=== PATIENT | male | born 1935 | race Caucasian/White ===

== ENCOUNTER 2020-09-22 11:00 | Emergency (ER) | payer MEDICARE, OTHER, SELFPAY ==
[2020-09-22 11:01] VITALS: BP 153/106; PULSE 102; RESP 18; TEMP 36.6; O2SAT 94; BMI 27.4
[2020-09-22 11:12] VITALS: O2SAT 94
--- NOTE | 2020-09-22 11:21 | EKG12_ITS ---
Test Reason : SOB Blood Pressure : / mmHG Vent. Rate : 090 BPM Atrial Rate : 312 BPM P-R Int : 000 ms QRS Dur : 094 ms QT Int : 358 ms P-R-T Axes : 132 063 174 degrees QTc Int : 437 ms Atrial Flutter with intermittent electronic ventricular pacemaker Incomplete right bundle branch block Possible Inferior infarct , age undetermined ST & T wave abnormality, consider lateral ischemia Abnormal ECG Confirmed by DAYA ROBERT, MELLY ([id number]), electronic news gathering editor SAMPSON BURGER ([id number]) on 09/24/2020 11:02:05 AM Referred By: LUIS Confirmed By:MELLY STAPLETON MD
--- NOTE | 2020-09-22 11:23 | ED.DCSUM_ITS ---
- ER Visit Summary Date of Service: 09/22/20 Chief Complaint: Shortness of breath History of Present Illness: The patient is a 85 M who presents with shortness of breath that has been getting progressively worse over the past few months. Patient states it is gradually gotten worse. Patient states it feels like a smothering in his chest. Patient states it is worse with lying down. Patient also states it is worse with any exertion. Patient states his breathing is better when he sits up and rests. Patient does admit to some palpitations but denies any chest pain. Patient admits to some rhinorrhea. Patient admits to a mild cough. Physical Examination: Vital signs are stable. Patient is afebrile. Patient is in no acute distress. Oral mucosa is pink and moist. Neck is supple. Trachea is midline. There is no JVD. Heart was irregularly irregular. Lungs show diffuse expiratory wheezing. There is good respiratory effort. There are no retractions noted. Abdomen is soft. Bowel sounds are normal. There is no tenderness. Cranial nerves II through XII are intact. There are no focal motor or sensory deficits. Extremities are intact. There is no calf tenderness or edema. Test Results: EKG was obtained. On my interpretation, there is atrial flutter with a rate of 90. There are frequent PVCs. There is T wave inversion in leads V4 through V6. QRS interval and QT intervals normal. [place] is normal. There are no prior EKGs available for comparison. Portable 1 view chest x-ray was obtained. On my interpretation, lung herrera are clear. There is cardiomegaly. Bony thorax is normal. There is no acute process noted. Radiologist also interpreted the x-ray and agrees. CBC showed a mild thrombocytopenia of 59. White blood cell count was 3.5. Comprehensive metabolic profile showed a slightly elevated creatinine of 1.66 and a BUN of 22. There are no prior values for comparison. PT with INR and PTT was normal. Troponin was normal. BNP was 981.3. COVID-19 rapid antigen was obtained and was positive. COVID-19 PCR test was also obtained and was positive. Emergency Department Course and Treatment: Patient was given a DuoNeb aerosol here. Patient was feeling better after this. Patient still had some mild wheezing. Patient was given albuterol aerosol. Patient's wheezing has cleared. Patient was given a prescription for albuterol inhaler. Patient was instructed to follow-up with his primary care physician in 3 to 5 days. Patient understood and was agreeable with the plan. All questions were answered. Disposition: Discharge home Impression: 1. COVID-19 This note was generated with [employer] dictation software. It may contain incorrect words, spelling, and punctuation that were not noted in review of the chart prio r to signing ED Disposition - Plan for ED Patient: Disposition: Home or Assisted Living Diagnosis: COVID-19 Instructions: Coronavirus Disease 2019 (COVID-19): Overview Prescriptions: Albuterol Inhaler [Ventolin Hfa] 1 - 2 puff INHALATION Q4H PRN PRN #1 inhaler PRN Reason: Wheezing Transmission Status: Pending to [facility] [facility] Referrals: Prabhu Vee MD [Primary Care Provider] - 3-5 Days
[2020-09-22] MEDS: Ipratropium/Albuterol Sulfate 3 ML AMPUL.NEB INHALATION (11:26)
[2020-09-22 11:27] VITALS: PULSE 92; RESP 20; O2SAT 93
--- NOTE | 2020-09-22 11:35 | RAD_ITS ---
STUDY: X-RAY CHEST REASON FOR EXAM: Male, 85 years old. Dyspnea TECHNIQUE: Single AP portable view of the chest. COMPARISON: None. FINDINGS: Pacemaker is seen on the left side. Multiple calcified granulomas are seen in both lungs the largest measures 5 mm. There is no demonstrated pleural abnormality. There is mild cardiac enlargement. Normal mediastinum and kaylene. Normal visualized pulmonary arteries. Normal visualized aortic arch and descending thoracic aorta. Normal visualized thoracic spine. There is degenerative osteoarthritis of the bilateral shoulders. There is no demonstrated abnormality of the visualized soft tissue structures of the upper abdomen. RAD/Chest 1 View (Portable) IMPRESSION: Mild cardiomegaly. No demonstrated acute cardiopulmonary process. Electronically Signed: Jax Prabhakar MD at 12:15 EST Tel , Service support ,
[2020-09-22 11:38] LABS: Absolute Lymphocyte Count 0.46 X10^3/uL (0.83-4.51); Absolute Neutrophil Count 2.2 X10^3/uL (2.0-7.7); Basophil# 0.04 X10^3/uL; Basophil% 1.1 % (0-1); Eosinophil# 0.04 X10^3/uL; Eosinophils% 1.1 % (0-5); Hematocrit 46.9 % (40-54); Hemoglobin 15.2 g/dL (13.0-16.5); Lymphocyte # 0.46 X10^3/ul (4.0); Lymphocyte % 13.2 % (19-41); Mean Corp Hgb Conc 32.4 g/dL (32-36); Mean Corpuscular Volume 104.9 fL (80-94); Mean Platelet Vol. 11.7 fl (6.2-12.0); Monocyte# 0.72 X10^3/uL; Monocyte% 20.6 % (0-10); NRBC Flagged by Analyzer 0 % (0-5); Neutrophil # 2.22 X10^3/uL (2.7-7.7); Neutrophil % 63.7 % (47-70); POSITIVE COUNT YES; POSITIVE DIFFERENTIAL YES; Platelet Count 59 K/mm3 (150-450); RBC Distribution Width CV 14.6 % (11.6-14.6); RBC Distribution Width SD 57.1 fl (35.1-43.9); Red Blood Count 4.47 M/mm3 (4.6-6.2); White Blood Count 3.5 K/mm3 (4.4-11.0)
[2020-09-22 11:55] LABS: International Normalized Ratio 1.3; Prothrombin Time (Protime)PT. 15.5 SECONDS (11.7-14.9)
[2020-09-22 11:56] LABS: ALB/GLOB Ratio 0.9 RATIO (0.9-2.4); AST(SGOT) 23 U/L (15-37); Alanine Aminotransfer ALT/SGPT 27 U/L (16-61); Albumin, Serum 3.3 g/dL (3.2-5.0); Alkaline Phosphatase 88 U/L (45-117); Anion Gap 6 (5-15); BUN 22 mg/dL (7-18); BUN/Creat Ratio 13.3 RATIO (10-20); Calcium,Total 8.9 mg/dL (8.5-10.1); Chloride 103 mmol/L (98-107); Creatinine, Serum 1.66 mg/dL (0.70-1.30); EST Glomerular Filtration Rate 42 mL/min (>60); Est Glom Filt Rate - Afr Amer 51 mL/min (>60); Estimated Creatinine Clearance 29.36 ml/min; Globulin 3.6 g/dL (2.2-4.2); Glucose 206 mg/dL (74-106); Protein, Total 6.9 g/dL (6.4-8.2); Sodium Level 142 mmol/L (136-145)
[2020-09-22 11:57] LABS: Partial Thromboplast Time 31.3 Seconds (24.1-36.2)
[2020-09-22 11:59] VITALS: PULSE 77; RESP 15; RESP 20; O2SAT 94
[2020-09-22] MEDS: Albuterol 2.5 MG/3 ML VIAL.NEB. INHALATION (11:59)
[2020-09-22 12:04] LABS: BNP,B-Type NATRIURETIC PEPTIDE 981.3 pg/mL (0-100)
[2020-09-22 12:07] LABS: Differential Indicated SCAN CRITERIA MET
[2020-09-22 12:08] LABS: Differential Comment SCANNED
[2020-09-22 12:10] LABS: Platelet Estimate MOD DEC (ADEQ)
[2020-09-22 13:22] VITALS: BP 117/84; PULSE 80; RESP 20; O2SAT 97
[2020-09-22 15:20] VITALS: BP 136/86; PULSE 79; RESP 16; O2SAT 95
[2020-09-23 12:39] LABS: Pathologist Review Reviewed
== END 2020-09-22 15:51 | disposition home or self-care (01) ==
PROVIDERS: Emergency Provider Emergency Medicine; PCP Family Medicine
DX: U07.1 COVID-19 (principal); I48.92 Unspecified atrial flutter; I49.3 Ventricular premature depolarization; I25.10 Atherosclerotic heart disease of native coronary artery without angina pectoris; Z95.1 Presence of aortocoronary bypass graft; Z95.810 Presence of automatic (implantable) cardiac defibrillator
CPT/HCPCS: 71045; 80053; 83880; 84484; 85025; 85610; 85730; 87426; 87635; 93005; 94640; 99251; 99284; A4216; G0463; U0002

== ENCOUNTER 2020-09-23 07:39 | Inpatient (IN) | payer MEDICARE, OTHER, SELFPAY ==
[2020-09-22 11:01] VITALS: BMI 27.4
[2020-09-23] VITALS (11 sets, daily range): BP systolic 122–152; BP diastolic 79–110; PULSE 74–124; RESP 16–23; TEMP 36.6–37.1; O2SAT 90–96; BMI 29.0; BMI 28.0; BMI 28.1
--- NOTE | 2020-09-23 07:56 | EKG12_ITS ---
Test Reason : SOB Blood Pressure : / mmHG Vent. Rate : 099 BPM Atrial Rate : 312 BPM P-R Int : 000 ms QRS Dur : 094 ms QT Int : 296 ms P-R-T Axes : 000 033 212 degrees QTc Int : 379 ms Atrial flutter with variable A-V block with frequent ventricular-paced complexes Incomplete right bundle branch block Inferior infarct , age undetermined ST & T wave abnormality, consider anterolateral ischemia Abnormal ECG Confirmed by MANN ROBERT, MARY JANE ([id number]), publications editor SAMPSON BURGER ([id number]) on 09/29/2020 10:26:59 A M Referred By: CRISTINA Confirmed By:NITO DARNELL MD
--- NOTE | 2020-09-23 07:59 | ED.DCSUM_ITS ---
History of Present Illness Chief Complaint: Shortness of Breath Informant: Patient, EMS Onset: Month(s) - 3 Activity at onset: - - gradual onset Timing: Continuous, Waxes and wanes Quality: Dyspnea on exertion, Orthopnea, Wheezing Current Severity: Mild Maximum Severity: Moderate Worsened by: Exertion, Lying flat Relieved by: Albuterol - sometimes helps the wheezing, Oxygen - given by EMS this AM, - - sitting up Associated Symptoms: Cough - BASEBALL SCOUT. Negative for: Chills, Fever, Rhinorrhea, Sore throat, Sweats Chest Pain: None Narrative: Patient states he has been having dyspnea with exertion and orthopnea for about 3 months, saw his food order expediter in [place], and is in the process of having his care transferred to local cardiology here. Yesterday he was seen here and had a work-up for worsening dyspnea he had positive rapid and PCR test for COVID-19. He has had a nonproductive cough, but he cannot really say how long he has been sick because he has been dealing with some of the symptoms for 3 months or more. This morning he woke up feeling like I was drowning more short of breath. He was 83% on room air upon EMS initial evaluation. The put him on oxygen and he was feeling better. Now he is off of oxygen and at 94 percent on room air and feeling better now that he has been sitting up for a while. He has swelling in his legs and states that has been chronic and fairly stable for a long time since his CABG. - Past Medical History (1) CAD (coronary artery disease) Status: Chronic Past Medical History - Allergies and Home Meds Allergies/Adverse Reactions: Allergies No Known Allergies Allergy (Verified 09/22/20 11:01) Primary Care Physician: Prabhu Vee MD [Primary Care Provider] - Surgical History: coronary bypass surgery, - - mitral valve replacement Smoking Status: Former smoker Review of Systems General: Reports: Malaise. Denies: Chills, Fever, Sweats Eyes: Denies: Visual changes - bilaterally, Diplopia ENT: Denies: Bilateral ear pain, Rhinorrhea, Sore throat Cardiovascular: Denies: Chest pain, Palpitations Respiratory: Reports: Dyspnea, Cough, Dyspnea on exertion, Orthopnea. Denies: Sputum Gastrointestinal: Denies: Abdominal pain, Nausea, Vomiting, Diarrhea, Melena, Hematochezia Genitourinary: Denies: Dysuria, Hematuria, Frequency Musculoskeletal: Reports: Swelling. Denies: Myalgias, Back pain, Extremity Pain Skin: Denies: Rash, Wounds Neurological: Denies: Headache, Weakness, Numbness Physical Exam Vital Signs/Narrative: Vital Signs Temp Pulse Resp BP Pulse Ox 09/23/20 07:47 98.7 F 124 H 22 H 152/110 H 93 Inital Vital Signs reviewed: Yes General: Well nourished, Well developed, No Acute Distress Head: Normocephalic, Atraumatic Eyes: Perrl, EOMI ENT: Moist mucous membranes, No rhinorrhea Neck: Supple, Nontender, No lymphadenopathy, No JVD Cardiovascular: Regular rate, Regular rhythm, No murmurs, Tachycardia Respiratory: No distress, Chest nontender, Wheezing - slight expiratory. Negative for: Rales, Rhonchi Abdomen: Soft, Nontender, Nondistended, Normal bowel sounds Back: Nontender, Normal Inspection Extremities: Nontender, Edema - 2+ BLE, worse on right which is chronic and stable per pt Skin: Normal color, No rash, No Trauma Neurological: Alert, Oriented x3, Cranial nerves II-XII grossly intact, Normal Strength, Normal Sensation Psychological: Normal affect, Normal Mood Diagnostic/Tx/Re-eval - Rhythm Strip Rhythm Strip: irreg narrow complex tachycardia Rate: 120 Ectopy: PVC(s) - EKG Initial EKG Interpretation: No Acute Injury Pattern, Atrial Flutter Prior: No Prior Treatment - Dyspnea: Oxygen - Medical Decision Making Given the patient was doing well on room air, we watched him for little while, but his oxygen saturations trended down and remained stable at about 88% on room air. He was placed on a nasal cannula which kept him in the 90s. He was in no respiratory distress. His heart rate maintained around 100-110, so I elected not to slow him down based on this. His EKG appears to show atrial flutter with a lot of ventricular ectopy and occasional pacing, the patient has never been diagnosed with a heart rhythm disturbance that he knows of. He is on no anticoagulant but he is on some cardiac medicine such as carvedilol. He does not know the specifics of his prior diagnoses, but given all of this I think ad mitting him for further treatment and evaluation is reasonable. His D-dimer is 0.74 which when corrected for his age is within normal limits, so he does not need to have further evaluation for acute pulmonary embolus at this time. His chest x-ray is unchanged compared to yesterday, on my interpretation 1 view shows chronic changes he has a pacemaker, with no acute infiltrates or effusion. His wheezing may be cardiac in nature. His BNP was elevated yesterday, today's is still pending for comparison, will give him some additional Lasix since all of this is consistent with congestive heart failure. He does not have an old echo available and will probably need 1. ED Disposition - Plan for ED Patient: Disposition: Acute Care Hospital [facility] Diagnosis: COVID-19, Hypoxemia, Atrial flutter, Acute congestive heart failure Referrals: Prabhu Vee MD [Primary Care Provider] -
--- NOTE | 2020-09-23 08:15 | RAD_ITS ---
STUDY: X-RAY CHEST REASON FOR EXAM: Male, 85 years old. sob TECHNIQUE: AP upright portable view. COMPARISON: 09/22/2020. FINDINGS: Dual-chamber pacing lead tips remain in the right atrium and right ventricle. Multiple calcified granulomas are unchanged. No suspicious infiltrates. There is no demonstrated pleural abnormality. Cardiomegaly is unchanged. Intact sternal wires. Normal mediastinum and kaylene. Normal visualized pulmonary arteries. Normal visualized aortic arch and descending thoracic aorta. Normal visualized thoracic spine. Normal visualized ribs, clavicles, and shoulders. There is no demonstrated abnormality of the visualized soft tissue structures of the upper abdomen. RAD/Chest 1 View (Portable) IMPRESSION: 1. No acute cardiopulmonary pathology. 2. No significant interval change when compared to 09/22/2020. Electronically Signed: Robbie Lawrence MD at 8:32 EST , Service support ,
[2020-09-23 08:27] LABS: Absolute Lymphocyte Count 0.57 X10^3/uL (0.83-4.51); Absolute Neutrophil Count 2.7 X10^3/uL (2.0-7.7); Basophil# 0.03 X10^3/uL; Basophil% 0.7 % (0-1); Eosinophil# 0.05 X10^3/uL; Eosinophils% 1.2 % (0-5); Hematocrit 46.8 % (40-54); Hemoglobin 15.6 g/dL (13.0-16.5); Lymphocyte # 0.57 X10^3/ul (4.0); Lymphocyte % 13.7 % (19-41); Mean Corp Hgb Conc 33.3 g/dL (32-36); Mean Corpuscular Hgb 34.6 pg (27.0-32.0); Mean Corpuscular Volume 103.8 fL (80-94); Mean Platelet Vol. 11.9 fl (6.2-12.0); Monocyte# 0.82 X10^3/uL; Monocyte% 19.7 % (0-10); NRBC Flagged by Analyzer 0 % (0-5); Neutrophil # 2.67 X10^3/uL (2.7-7.7); Neutrophil % 64.2 % (47-70); POSITIVE COUNT YES; POSITIVE DIFFERENTIAL YES; Platelet Count 60 K/mm3 (150-450); RBC Distribution Width CV 14.6 % (11.6-14.6); RBC Distribution Width SD 56.5 fl (35.1-43.9); Red Blood Count 4.51 M/mm3 (4.6-6.2); White Blood Count 4.2 K/mm3 (4.4-11.0)
[2020-09-23 08:36] LABS: Differential Indicated SCAN CRITERIA MET
[2020-09-23 08:40] LABS: D-Dimer Quantitative (DVT/PE) 0.74 FEU/ug/m (0.27-0.49)
[2020-09-23 08:42] LABS: Anion Gap 7 (5-15); BUN 22 mg/dL (7-18); BUN/Creat Ratio 15.1 RATIO (10-20); Calcium,Total 9.1 mg/dL (8.5-10.1); Chloride 101 mmol/L (98-107); Creatinine, Serum 1.46 mg/dL (0.70-1.30); EST Glomerular Filtration Rate 49 mL/min (>60); Est Glom Filt Rate - Afr Amer 59 mL/min (>60); Estimated Creatinine Clearance 33.38 ml/min; Glucose 115 mg/dL (74-106); Sodium Level 139 mmol/L (136-145)
[2020-09-23 08:47] LABS: Lactic Acid 1.3 mmol/L (0.4-1.9)
[2020-09-23 08:57] LABS: Differential Comment SCANNED
--- NOTE | 2020-09-23 09:15 | NURSING ---
DR NGUYEN FOR DR EVANS
[2020-09-23] MEDS: Furosemide 40 MG/4 ML Vial IV ×2 (09:16→17:06)
--- NOTE | 2020-09-23 09:27 | NURSING ---
MS2 COVID KORAM COVID 19, ACUTE CHF, HYPOXEMIA
--- NOTE | 2020-09-23 09:28 | NURSING ---
CV[facility] 202
--- NOTE | 2020-09-23 09:57 | NURSING ---
RODOLFO ALONSO, CELL PHONE [phone]
[2020-09-23 11:57] LABS: Alkaline Phosphatase 92 U/L (45-117); CPK Total, Creatine Kinase 38 U/L (39-308)
[2020-09-23] MEDS: Carvedilol 12.5 MG Tablet PO ×2 (12:31→20:18)
[2020-09-23 12:54] LABS: D-Dimer Quantitative (DVT/PE) 0.68 FEU/ug/m (0.27-0.49)
[2020-09-23 13:08] LABS: Procalcitonin 0.09 ng/mL (0.00-0.09)
[2020-09-23] MEDS: Enoxaparin 40 MG/0.4 ML Syringe SC ×2 (13:37→17:06)
[2020-09-23] MEDS: 0.9% Saline Lock 10 ML Syringe IV ×2 (13:37→17:06)
[2020-09-23] MEDS: Cyanocobalamin 500 MCG Tablet 2000 MCG PO (13:38)
[2020-09-23] MEDS: Potassium Chloride Oral Tablet 10 MEQ PO (13:38)
[2020-09-23] MEDS: Lisinopril 20 MG Tablet PO (13:38)
[2020-09-23] MEDS: Aspirin 81 MG TAB.CHEW PO (13:38)
[2020-09-23] MEDS: dexAMETHasone 10 MG/ML Vial 6 MG IV (13:39)
[2020-09-23] MEDS: Multivitamins,Ther W-Minerals Tablet 1 TABLET PO (13:39)
[2020-09-23] MEDS: Finasteride 5 MG Tablet PO (13:39)
[2020-09-23 14:27] LABS: Alanine Aminotransfer ALT/SGPT 30 U/L (16-61)
[2020-09-23] MEDS: Sodium Chloride 0.65% 1 SPRAY SPRAY.BTL 2 SPRAY NASAL (15:31)
--- NOTE | 2020-09-23 15:34 | HP.PCM_ITS ---
History of Present Illness Date of Admission: 09/23/20 Chief Complaint: shortness of breath The patient is a 85 year old M with a past medical history as outlined which includes heart failure was admitted via the ED on 09/23/2020 with a complaint of shortness of breath. Patient states shortness of breath had been going on for about 3 months and he had been following up with his vending machine assembler in [place]. He had however recently moved to the [facility] and so was trying to transfer his care to a local vending machine assembler. He was seen in the emergency room 1 day prior to admission with a complaint of shortness of breath which have been worsening. Covid PCR and antigen test done with both positive. He also had a nonproductive cough. He was discharged home as he was stable and not hypoxic. He however he states when he went home, shortness of breath worsened he felt like he was drowning because of shortness of breath. He therefore came back to the ED. He had associated orthopnea and PND. In the ED, he was noted to be saturating at 83% on room air and required oxygen to help him feel better. Vitals in the ED showed temperature of 98.6 Fahrenheit with pulse rate of 105, respiratory rate of 16 and blood pressure of 146/99. He was saturating at 95% on room air at time of review. His sodium was 139 and creatinine was 1.46. Initial troponin was negative. BNP was 909. CBC showed hemoglobin of 15.6 with WBC of 4.2 and platelets of 60. X-ray showed no acute cardiopulmonary pathology. EKG also showed no acute ST changes. He has been admitted to be managed for acute on chronic exacerbation of heart failure of unknown EF as well as COVID-19 infection. [] Past Medical History Past Medical History (Chronic Problems): Chronic Problems CAD (coronary artery disease) (Chronic) Allergies diphenhydramine [From Benadryl] Allergy (Verified 09/23/20 09:25) PT UNSURE OF REACTION ofloxacin [From Floxin] Allergy (Verified 09/23/20 09:25) Other Home Medications: Ambulatory Orders Medication Instructions Recorded Albuterol Inhaler [Ventolin Hfa] 1 - 2 puff INHALATION Q4H PRN PRN 09/22/20 #1 inhaler Aspirin [Aspirin, Baby] 81 mg PO DAILY@0800 09/22/20 Carvedilol [Coreg (Beta Latoya)] 12.5 mg PO BID 09/22/20 Enalapril Maleate 20 mg PO DAILY 09/22/20 Finasteride 5 mg PO DAILY 09/22/20 Furosemide [Lasix] 40 mg PO DAILY 09/22/20 Potassium Chloride 10 meq PO DAILY 09/22/20 Cyanocobalamin (Vitamin B-12) 2,000 mcg PO DAILY 09/23/20 [Vitamin B-12] Multivitamin with Minerals 1 tab PO DAILY 09/23/20 [Multiple Vitamin] [place]-3 Fatty Acids/Fish Oil 1 ea PO DAILY 09/23/20 [[place] 3 1,000 mg Softgel] Vitamin D3 1,000 unit PO DAILY 09/23/20 Surgical History: coronary bypass surgery, - - mitral valve replacement Smoking Status: Former smoker Tobacco Use: Cigarettes Review of Systems Constitutional: Denies: Chills, Fever, Malaise, Weakness, Weight Change Eyes: Denies: Blurred vision HEENT: Denies: Head Aches, Sinus Congestion, Sinus Drainage Cardiovascular: Reports: Orthopnea, Paroxysmal Noc. Dyspnea. Denies: Chest Pain, Chest Pressure, Chest Tightness, Heaviness, Light Headedness, Palpitations, Syncope Respiratory: Reports: Cough, Shortness of Breath, Shortness of breath at rest. Denies: Shortness of breath upon exertion, Sputum production, Wheezing Gastrointestinal: Denies: Abdominal Pain, Nausea, Vomiting Genitourinary: Denies: Dysuria Musculoskeletal: Denies: Joint Pain, Joint Tenderness Skin: Denies: Rash, Wounds Neurological: Denies: Numbness, Tingling, Focal weakness Psychiatric: Denies: Anxiety, Depression, Homicidal Ideations, Suicidal Ideations Hematologic/ Lymphatic: Denies: Easy Bruising, Easy Bleeding VTE Information - Inpt Only VTE Present on Admission: No VTE Pharm Prophylaxis ordered?: No Reason prophylaxis not ordered:: Medical Contraindication - thrombocytopenia Patient Problems: Active and Suspected Problems COVID-19 (Acute) Hypoxemia (Acute) Atrial flutter (Acute) Acute congestive heart failure (Acute) - Physical Exam Vitals/I&O's: Vital Signs Temp Pulse Resp BP Pulse Ox 98.5 F 90 17 145/79 H 95 09/23/20 15:32 09/23/20 15:32 09/23/20 15:32 09/23/20 15:32 09/23/20 15:32 Oxygen Flow Rate (L/min) 1 Oxygen Delivery Method Nasal Cannula Weight: 173 lb 15.115 oz Body Mass Index (BMI) 28.0 Intake and Output for Last 24 Hours 09/21/20 09/22/20 09/23/20 23:59 23:59 23:59 Intake Total 50 / 50 Output Total 300 / 300 Balance -250 / -250 General: Alert, Oriented x3, Cooperative, No apparent distress HEENT: Atraumatic, PERRLA, EOMI, Normocephalic Neck: Supple, No JVD, Negative Carotid Bruits Lungs: Clear to auscultation, Normal air movement, - - on room air Cardiovascular: Regular rate, No murmurs Abdomen: Bowel Sounds Present, Soft, Non Tender Extremities: No edema, Capillary Refill Less than 3 Seconds Skin: No rashes, No breakdown Musculoskeletal: No Tenderness to Palpation of Joints or Extremities Lymphatic: No Cervical, Supraclavicular, or Inguinal Adenopathy Neurological: Cranial nerves II-XII grossly intact, Neuro grossly intact, Motor Exam 5/5 strength throughout Psych/Mental Status: Normal Affect, Appropriate, Alert and oriented to time, place, person, mood and affect Laboratory Results 09/23/20 08:10: D-Dimer Quant (PE/DVT) 0.74 H* 09/23/20 08:10: Sodium 139, Potassium 4.0, Chloride 101, Carbon Dioxide 31.0, Anion Gap 7, BUN 22 H, Creatinine 1.46 H, Estim Creat Clear Calc 33.38, Est GFR (MDRD) Af Amer 59 L, Est GFR (MDRD) Non-Af 49 L, BUN/Creatinine Ratio 15.1, Glucose 115 H, Calcium 9.1, Troponin I 0.024 09/23/20 08:10: B-Natriuretic Peptide 909.0 H 09/23/20 08:10: WBC 4.2 L, RBC 4.51 L, Hgb 15.6, Hct 46.8, MCV 103.8 H, MCH 34.6 H, MCHC 33.3, RDW Std Deviation 56.5 H, RDW Coeff of Daryl 14.6, Plt Count 60 L, MPV 11.9, Immature Gran % (Auto) 0.500, Neut % (Auto) 64.2, Lymph % (Auto) 13.7 L, [place] % (Auto) 19.7 H, Eos % (Auto) 1.2, Baso % (Auto) 0.7, Absolute Neuts (auto) 2.7, Absolute Lymphs (auto) 0.57 L, Nucleated RBC % 0, Differential Comment SCANNED 09/23/20 08:10: Lactic Acid 1.3 09/23/20 08:10: Alkaline Phosphatase 92, Total Creatine Kinase 38 L 09/23/20 08:10: ALT 30 09/23/20 12:25: D-Dimer Quant (PE/DVT) 0.68 H* 09/23/20 12:25: Procalcitonin 0.09 09/23/20 12:25: Troponin I 0.027 Diagnostic Data Chest X-Ray 09/23/20 08:15 IMPRESSION: 1. No acute cardiopulmonary pathology. 2. No significant interval change when compared to 09/22/2020. Electronically Signed: Robbie Lawrence MD at 8:32 EST , Service support , Current Medications Aspirin (Aspirin 81 Mg Tab.Chew) 81 mg PO DAILY@0800 [facility] Last Admin: 09/23/20 13:38 Dose: 81 mg Documented by: Carvedilol (Carvedilol 12.5 Mg Tablet) 12.5 mg PO BID [facility] Last Admin: 09/23/20 12:31 Dose: 12.5 mg Documented by: Cholecalciferol (Cholecalciferol (Vit D3) 1,000 Unit (25mcg)) 1,000 unit PO DAILY [facility] Last Admin: 09/23/20 13:39 Dose: 1,000 unit Documented by: Cyanocobalamin (Cyanocobalamin 500 Mcg Tablet) 2,000 mcg PO DAILY [facility] Last Admin: 09/23/20 13:38 Dose: 2,000 mcg Documented by: Dexamethasone Sodium Phosphate (Dexamethasone 10 Mg/Ml Vial) 6 mg IV DAILY [facility] Last Admin: 09/23/20 13:39 Dose: 6 mg Documented by: Enoxaparin Sodium (Enoxaparin 40 Mg/0.4 Ml Syringe) 40 mg SC DAILY [facility] Last Admin: 09/23/20 13:37 Dose: 40 mg Documented by: Finasteride (Finasteride 5 Mg Tablet) 5 mg PO DAILY [facility] Last Admin: 09/23/20 13:39 Dose: 5 mg Documented by: Furosemide (Furosemide 40 Mg/4 Ml Vial) 40 mg IV BID@1000,1700 [facility] Sodium Chloride () 250 mls @ 15 mls/hr IV .[id number] PRN PRN Reason: Saline Flush Sodium Chloride () 250 mls @ 15 mls/hr IV .[id number] PRN PRN Reason: Additional IVPB Infusion Remdesivir 100 mg/ Sodium (Chloride) 250 mls @ 125 mls/hr IV DAILY [facility] Stop: 09/27/20 11:59 Lisinopril (Lisinopril 20 Mg Tablet) 20 mg PO DAILY [facility] Last Admin: 09/23/20 13:38 Dose: 20 mg Documented by: Multivitamins/Minerals (Multivitamins,Ther W-Minerals Tablet) 1 tablet PO DAILY@0800 [facility] Last Admin: 09/23/20 13:39 Dose: 1 tablet Documented by: Nitroglycerin (Nitroglycerin (Inpatient Use) 0.4 Mg Tab.Subl) 0.4 mg SL Q5M PRN PRN Reason: CARDIAC/CHEST PAIN Ondansetron HCl (Ondansetron 4 Mg/2 Ml Vial) 4 mg IV Q8H PRN PRN PRN Reason: NAUSEA/VOMITING Potassium Chloride (Potassium Chloride Oral Tablet 10 Meq) 10 meq PO DAILY [facility] Last Admin: 09/23/20 13:38 Dose: 10 meq Documented by: Sodium Chloride (0.9% Saline Lock 10 Ml Syringe) 10 - 40 ml IV UD PRN PRN Reason: SALINE FLUSH Last Admin: 09/23/20 13:37 Dose: 10 ml Documented by: Sodium Chloride (Sodium Chloride 0.65% 1 [place].Btl) 2 spray NASAL TID PRN PRN PRN Reason: NASAL DRYNESS Last Admin: 09/23/20 15:31 Dose: 2 spray Documented by: Assessment/Plan All Active Problems COVID-19 (Acute) Hypoxemia (Acute) Atrial flutter (Acute) Acute congestive heart failure (Acute) 85-year-old admitted with a complaint of shortness of breath. #Acute on chronic heart failure * EF is unknown as we don't have any echo on file. He does have an ICD in place, so I suspect it is a systolic heart failure * admit to COVID unit * start on IV lasix 40mg bid. * monitor intake and output chart * fluid restriction to 1500cc daily * #COVID 19 infection * he was hypoxic on admission, but that has resolved. * start remdesivir and decadron * ID consulted * breathing treatment with bronchodilators * #Atrial flutter * patient was in atrial flutter on admission. He doesnt have any such known history * on carvedilol; will resume. He was rate controlled. * records from previous vending machine assembler requested * consult cardiology * unable to anticoagulate as platelets are 60; no baseline platelets on record * # Thrombocytopenia: unclear whether it is acute or chronic. Will monitor for now. If it drops further. #History of CAD s/p CABG; on aspirin. not On statin, likely due to advanced age. 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 hold lovenox o/a of thrombocytopenia CODE STATUS: Full code * Patient counseled extensively about different types of CODE STATUS including full code, DNR CCA and DNR CCA. Patient elects to be full code. * Total psda-xw-oexj time 17 minutes. Inpatient E&M: 23297 Init Hosp L3 Procedures: 70936 Advncd Care Plan 30 Min
--- NOTE | 2020-09-23 16:38 | CON.PCM_ITS ---
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 The patient states he follows with a size tester in the [facility]. He has been looking to transition his care to the [facility] as he now lives in this area. He notes that he has been short of breath and dyspneic for some time. He states he has been told in the past that it was not related to ongoing worsening cardiovascular disease. However, based upon his ongoing concerns, he presented to the hospital for further evaluation. He was evaluated yesterday and found to have COVID-19. He was deemed stable at the time and was released home for continued outpatient follow-up. He presented back today because of concerns of his shortness of breath and dyspnea and complaining of orthopnea. He denies any ongoing chest discomfort. He denies any ongoing palpitations or rapid rates. There is been no near syncope or syncope or ICD discharge. He states he has chronic edema of the lower extremities especially the right greater than the left. In the emergency department he was found to have an elevated heart rate. It appears that his cardiac rhythm is compatible with an underlying atrial flutter with intermittent ventricular paced beats. He states he may have been told in the past by his size tester that he had an irregular heartbeat. He does not recall being on long-term anticoagulant therapy. He was placed in the ICU for further evaluation and care. His cardiac rhythm appears to be remaining atrial flutter with intermittent ventricular paced beats. His ECG demonstrated the appearance of atrial flutter with an occasional electronic ventricular paced beat with an incomplete right bundle branch block pattern and inferior GA pattern of indeterminate age as well as ST and T wave changes potentially compatible with myocardial ischemia in the anterolateral di stribution. His chest x-ray demonstrated post open heart surgery changes and a dual-chamber ICD. His cardiac enzymes have been negative. His BNP level was elevated. He has been placed on medical therapy including his rate control therapy as well as IV diuretic therapy. He is also receiving COVID-19 therapy with corticosteroids and remdesivir. On O2 nasal cannula. At the moment he is not complaining of any acute symptoms. [] Past Medical History Allergies/Adverse Reactions: Allergies diphenhydramine [From Benadryl] Allergy (Verified 09/23/20 09:25) PT UNSURE OF REACTION ofloxacin [From Floxin] Allergy (Verified 09/23/20 09:25) Other Home Medications: Ambulatory Orders Medication Instructions Recorded Albuterol Inhaler [Ventolin Hfa] 1 - 2 puff INHALATION Q4H PRN PRN 09/22/20 #1 inhaler Aspirin [Aspirin, Baby] 81 mg PO DAILY@0800 09/22/20 Carvedilol [Coreg (Beta Latoya)] 12.5 mg PO BID 09/22/20 Enalapril Maleate 20 mg PO DAILY 09/22/20 Finasteride 5 mg PO DAILY 09/22/20 Furosemide [Lasix] 40 mg PO DAILY 09/22/20 Potassium Chloride 10 meq PO DAILY 09/22/20 Cyanocobalamin (Vitamin B-12) 2,000 mcg PO DAILY 09/23/20 [Vitamin B-12] Multivitamin with Minerals 1 tab PO DAILY 09/23/20 [Multiple Vitamin] [place]-3 Fatty Acids/Fish Oil 1 ea PO DAILY 09/23/20 [[place] 3 1,000 mg Softgel] Vitamin D3 1,000 unit PO DAILY 09/23/20 Past Medical History (Chronic Problems): Chronic Problems CAD (coronary artery disease) (Chronic) S/P CABG (coronary artery bypass graft) (Chronic) S/P MVR (mitral valve replacement) (Chronic) ICD (implantable cardioverter-defibrillator) in place (Chronic) Surgical History: coronary bypass surgery, - - mitral valve replacement Lives: Alone Smoking Status: Former smoker Tobacco Use: Cigarettes Alcohol: None Drugs: None Review of Systems - Review of Systems General: Denies: Fever, Night Sweats, Fatigue Cardiovascular: Reports: Shortness of Breath, Peripheral Edema. Denies: Chest Discomfort, Orthopnea, PND, Palpitations, Lightheadedness, Dizziness, Near Syncope, Syncope Respiratory: Reports: Cough, Shortness of Breath. Denies: Sputum Production, Hemoptysis Gastrointestinal: Denies: Hematemesis, Hematochezia, Melena Genitourinary: Denies: Dysuria, Hematuria Skin: Denies: Rash Subjectve: This is a pleasant 85-year-old white male who appears resting comfortably at the moment in no acute distress. Objective: Vital Signs Temp Pulse Resp BP Pulse Ox 98.5 F 90 17 145/79 H 95 09/23/20 15:32 09/23/20 15:32 09/23/20 15:32 09/23/20 15:32 09/23/20 15:32 Oxygen Flow Rate (L/min) 1 Oxygen Delivery Method Nasal Cannula Weight: 173 lb 15.115 oz Body Mass Index (BMI) 28.0 Intake and Output for Last 24 Hours 09/21/20 09/22/20 09/23/20 23:59 23:59 23:59 Intake Total 50 / 50 Output Total 300 / 300 Balance -250 / -250 General: Awake, Alert, Oriented x 3, Cooperative, No Acute Distress HEENT: Atraumatic, Normocephalic, PERRL, EOMI, Sclera Non Icteric Neck: Supple, Good ROM, No JVD Lungs: - - No obvious rales or rhonchi Cardiovascular: Irregular Rhythm, Normal S1, Normal S2 Abdomen: Bowel Sounds Present, Soft Extremities: Moderate RLE Edema, Mild LLE Edema Neurological: No Focal Motor or Sensory Deficit Psych/Mental Status: Appropriate 09/23/20 08:10: D-Dimer Quant (PE/DVT) 0.74 H* 09/23/20 08:10: Sodium 139, Potassium 4.0, Chloride 101, Carbon Dioxide 31.0, Anion Gap 7, BUN 22 H, Creatinine 1.46 H, Est GFR (MDRD) Af Amer 59 L, Est GFR (MDRD) Non-Af 49 L, BUN/Creatinine Ratio 15.1, Glucose 115 H, Calcium 9.1, Troponin I 0.024 09/23/20 08:10: B-Natriuretic Peptide 909.0 H 09/23/20 08:10: WBC 4.2 L, RBC 4.51 L, Hgb 15.6, Hct 46.8, MCV 103.8 H, MCH 34.6 H, MCHC 33.3, Plt Count 60 L, MPV 11.9, Immature Gran % (Auto) 0.500, Neut % (Auto) 64.2, Lymph % (Auto) 13.7 L, [place] % (Auto) 19.7 H, Eos % (Auto) 1.2, Baso % (Auto) 0.7, Absolute Neuts (auto) 2.7, Nucleated RBC % 0 09/23/20 08:10: Lactic Acid 1.3 09/23/20 12:25: D-Dimer Quant (PE/DVT) 0.68 H* 09/23/20 12:25: Troponin I 0.027 09/23/20 15:25: Troponin I 0.030 Rhythm: Atrial flutter with intermittent electronic ventricular paced beats EKG: As noted above CXR: As noted above Assessment/Plan 1. CAD status post CABG and redo CABG The details of the patient's cardiac anatomy and surgical procedures are unknown at this time. A request will be made to obtain copies of his previous medical records for continuity of care purposes. At the moment he does not appear to have any acute symptoms with his underlying CAD process. His troponin I levels have been negative. He will need to continue risk factor modification medical therapy as deemed appropriate. 2. Status post MVR The patient states that his second open heart surgery also included a mitral valve replacement. Again the details are unknown at this time. An attempt was made to retrieve his past medical records for continuity of care purposes. At the moment he appears to be without acute ongoing symptoms with respect to underlying valvular heart disease. He will need to continue to be monitored. Hopefully his previous medical records will be available for review. As the patient has not been on chronic anticoagulant therapy it is thought that his mitral valve replacement was bioprosthetic and/or potentially his mitral valve was repaired versus replaced. It does not appear that he has a mechanical mitral valve based upon examination and his lack of long-term oral anticoagulant therapy. 3. Atrial flutter He does appear to be in atrial flutter. It is unclear as to how long he has been in atrial flutter. At the moment his rate appears to be reasonably well controlled. He will continue rate control therapy. It would be reasonable to start anticoagulant therapy. This may be given temporarily in the form of Lovenox with adjustment for his renal function as deemed appropriate. Depending upon his clinical course he may need to be converted to an oral anticoagulant. Over time he can be considered for an attempt at synchronized biphasic DC cardioversion to regain sinus rhythm if he does not do so spontaneously. However if this is not urgent emergent then this may occur after he has been on anticoagulant therapy for period of time and recuperated from his COVID-19. 4. CHF The patient may have an element of acute on chronic CHF. Again his overall LV systolic function is unknown at this time. At the moment he is receiving diuretic therapy. His volume status will need to be followed as well as his renal function. Hopefully his medical records will be available for review which will help with respect to his overall LV wall motion and systolic function status. He may eventually need an echocardiogram performed. However, if not urgent or emergent perhaps this can be performed after he is COVID-19 positive status has improved to minimize the exposure of other healthcare workers. 5. ICD He does have an ICD in place. He states it is never discharged. Again this can be interrogated in the future as deemed appropriate. 6. Hypoxemia He was hypoxic. The etiology may be multifactorial with a combination of any cardiovascular related issues such as acute on chronic CHF as well as his COVID- 19 status. He appears to be improved at this time with his medical therapy and his O2 support. 7. COVID-19 He underwent 2 COVID-19 test which were reported as positive. He is receiving medical therapy with dexamethasone and remdesivir. This note was generated using a voice recognition system and there may be incorrect words, spelling or punctuation that were not noted when reviewing the office note prior to saving.
[2020-09-24] VITALS (13 sets, daily range): BP systolic 141–162; BP diastolic 82–99; PULSE 77–90; RESP 16–18; TEMP 36.1–36.8; O2SAT 96–98
[2020-09-24] MEDS: Enoxaparin 80 MG/0.8 ML Syringe SC ×2 (04:19→17:58)
[2020-09-24 04:27] LABS: Absolute Lymphocyte Count 0.52 X10^3/uL (0.83-4.51); Absolute Neutrophil Count 1.6 X10^3/uL (2.0-7.7); Basophil# 0.02 X10^3/uL; Basophil% 0.8 % (0-1); Hematocrit 43.8 % (40-54); Hemoglobin 14.2 g/dL (13.0-16.5); Lymphocyte # 0.52 X10^3/ul (4.0); Lymphocyte % 19.6 % (19-41); Mean Corp Hgb Conc 32.4 g/dL (32-36); Mean Corpuscular Hgb 33.7 pg (27.0-32.0); Mean Platelet Vol. 11.5 fl (6.2-12.0); Monocyte# 0.52 X10^3/uL; Monocyte% 19.6 % (0-10); NRBC Flagged by Analyzer 0 % (0-5); Neutrophil # 1.58 X10^3/uL (2.7-7.7); Neutrophil % 59.6 % (47-70); POSITIVE COUNT YES; POSITIVE DIFFERENTIAL YES; Platelet Count 64 K/mm3 (150-450); RBC Distribution Width CV 14.4 % (11.6-14.6); RBC Distribution Width SD 55.6 fl (35.1-43.9); Red Blood Count 4.21 M/mm3 (4.6-6.2); White Blood Count 2.7 K/mm3 (4.4-11.0)
[2020-09-24 04:28] LABS: Differential Indicated SCAN CRITERIA MET
[2020-09-24 04:59] LABS: ALB/GLOB Ratio 0.9 RATIO (0.9-2.4); AST(SGOT) 23 U/L (15-37); Alanine Aminotransfer ALT/SGPT 23 U/L (16-61); Alkaline Phosphatase 81 U/L (45-117); Anion Gap 6 (5-15); BUN 32 mg/dL (7-18); BUN/Creat Ratio 19.6 RATIO (10-20); Calcium,Total 8.3 mg/dL (8.5-10.1); Chloride 102 mmol/L (98-107); Cholesterol 138 mg/dL (200); Creatinine, Serum 1.63 mg/dL (0.70-1.30); EST Glomerular Filtration Rate 43 mL/min (>60); Est Glom Filt Rate - Afr Amer 52 mL/min (>60); Globulin 3.4 g/dL (2.2-4.2); Glucose 120 mg/dL (74-106); High Density Lipoprotein 47 mg/dL; Potassium 3.8 mmol/L (3.5-5.1); Protein, Total 6.4 g/dL (6.4-8.2); Sodium Level 140 mmol/L (136-145); Triglycerides 56 mg/dL; Very Low Density Lipoprotein 11 mg/dL (5-40)
[2020-09-24] MEDS: Carvedilol 12.5 MG Tablet PO ×2 (09:36→22:05)
[2020-09-24] MEDS: Furosemide 40 MG/4 ML Vial IV (09:37)
[2020-09-24] MEDS: Aspirin 81 MG TAB.CHEW PO (09:37)
[2020-09-24] MEDS: Finasteride 5 MG Tablet PO (09:37)
[2020-09-24] MEDS: Lisinopril 20 MG Tablet PO (09:37)
[2020-09-24] MEDS: Potassium Chloride Oral Tablet 10 MEQ PO (09:37)
[2020-09-24] MEDS: Cyanocobalamin 500 MCG Tablet 2000 MCG PO (09:37)
[2020-09-24] MEDS: Multivitamins,Ther W-Minerals Tablet 1 TABLET PO (09:37)
[2020-09-24] MEDS: 0.9% Saline Lock 10 ML Syringe IV (09:50)
[2020-09-24] MEDS: dexAMETHasone 4 MG Tablet 6 MG PO (09:51)
--- NOTE | 2020-09-24 09:56 | PCM.PN.HOSP ---
Patient Problems: Active and Suspected Problems COVID-19 (Acute) Hypoxemia (Acute) Atrial flutter (Acute) Acute congestive heart failure (Acute) Subjective: Patient seen and examined. He has no complaints today, and feel well. Review of systems is otherwise negative. He has remained hemodynamically stable. Vitals/I&O's: Vital Signs Temp Pulse Resp BP Pulse Ox 97.7 F L 90 18 153/99 H 97 09/24/20 09:30 09/24/20 09:30 09/24/20 09:30 09/24/20 09:30 09/24/20 09:30 Oxygen Flow Rate (L/min) 1 Oxygen Delivery Method Nasal Cannula Weight: 169 lb 8.568 oz Body Mass Index (BMI) 28.0 Intake and Output for Last 24 Hours 09/22/20 09/23/20 09/24/20 23:59 23:59 23:59 Intake Total 545 / 545 100 / 100 Output Total 1550 / 1550 250 / 250 Balance -1005 / -1005 -150 / -150 General: Alert, Oriented x3, Cooperative, No apparent distress HEENT: Atraumatic, PERRLA, EOMI, Normocephalic Neck: Supple, No JVD, Negative Carotid Bruits Lungs: Clear to auscultation, Normal air movement, - - on room air Cardiovascular: irregularly irregular, due to atrial fibrillation Abdomen: Bowel Sounds Present, Soft, Non Tender Extremities: No edema, Capillary Refill Less than 3 Seconds Skin: No rashes, No breakdown Musculoskeletal: No Tenderness to Palpation of Joints or Extremities Lymphatic: No Cervical, Supraclavicular, or Inguinal Adenopathy Neurological: Cranial nerves II-XII grossly intact, Neuro grossly intact, Motor Exam 5/5 strength throughout Psych/Mental Status: Normal Affect, Appropriate, Alert and oriented to time, place, person, mood and affect Laboratory Results 09/23/20 08:10: Alkaline Phosphatase 92, Total Creatine Kinase 38 L 09/23/20 08:10: ALT 30 09/23/20 12:25: D-Dimer Quant (PE/DVT) 0.68 H* 09/23/20 12:25: Procalcitonin 0.09 09/23/20 12:25: Troponin I 0.027 09/23/20 15:25: Troponin I 0.030 09/24/20 04:15: WBC 2.7 L, RBC 4.21 L, Hgb 14.2, Hct 43.8, MCV 104.0 H, MCH 33.7 H, MCHC 32.4, RDW Std Deviation 55.6 H, RDW Coeff of Daryl 14.4, Plt Count 64 L, MPV 11.5, Immature Gran % (Auto) 0.400, Neut % (Auto) 59.6, Lymph % (Auto) 19.6, [place] % (Auto) 19.6 H, Eos % (Auto) 0.0, Baso % (Auto) 0.8, Absolute Neuts (auto) 1.6 L, Absolute Lymphs (auto) 0.52 L, Nucleated RBC % 0, Diff Path Review November09/24/20 04:15: Sodium 140, Potassium 3.8, Chloride 102, Carbon Dioxide 32.0, Anion Gap 6, BUN 32 H, Creatinine 1.63 H, Estim Creat Clear Calc 29.90, Est GFR (MDRD) Af Amer 52 L, Est GFR (MDRD) Non-Af 43 L, BUN/Creatinine Ratio 19.6, Glucose 120 H, Calcium 8.3 L, Total Bilirubin 0.80, AST 23, ALT 23, Alkaline Phosphatase 81, Total Protein 6.4, Albumin 3.0 L, Globulin 3.4, Albumin/Globulin Ratio 0.9, Triglycerides 56, Cholesterol 138, LDL Cholesterol 80, VLDL Cholesterol 11, HDL Cholesterol 47 Diagnostic Data Chest X-Ray 09/23/20 08:15 IMPRESSION: 1. No acute cardiopulmonary pathology. 2. No significant interval change when compared to 09/22/2020. Electronically Signed: Robbie Lawrence MD at 8:32 EST , Service support , Current Medications Aspirin (Aspirin 81 Mg Tab.Chew) 81 mg PO DAILY@0800 [facility] Last Admin: 09/24/20 09:37 Dose: 81 mg Documented by: Carvedilol (Carvedilol 12.5 Mg Tablet) 12.5 mg PO BID [facility] Last Admin: 09/24/20 09:36 Dose: 12.5 mg Documented by: Cholecalciferol (Cholecalciferol (Vit D3) 1,000 Unit (25mcg)) 1,000 unit PO DAILY [facility] Last Admin: 09/24/20 09:36 Dose: 1,000 unit Documented by: Cyanocobalamin (Cyanocobalamin 500 Mcg Tablet) 2,000 mcg PO DAILY [facility] Last Admin: 09/24/20 09:37 Dose: 2,000 mcg Documented by: Dexamethasone (Dexamethasone 4 Mg Tablet) 6 mg PO DAILY [facility] Stop: 10/02/20 10:01 Last Admin: 09/24/20 09:51 Dose: 6 mg Documented by: Enoxaparin Sodium (Enoxaparin 80 Mg/0.8 Ml Syringe) 80 mg SC Q12@0600,1800 [facility] Last Admin: 09/24/20 04:19 Dose: 80 mg Documented by: Finasteride (Finasteride 5 Mg Tablet) 5 mg PO DAILY [facility] Last Admin: 09/24/20 09:37 Dose: 5 mg Documented by: Furosemide (Furosemide 40 Mg/4 Ml Vial) 40 mg IV DAILY [facility] Last Admin: 09/24/20 09:37 Dose: 40 mg Documented by: Sodium Chloride () 250 mls @ 15 mls/hr IV .[id number] PRN PRN Reason: Saline Flush Sodium Chloride () 250 mls @ 15 mls/hr IV .[id number] PRN PRN Reason: Additional IVPB Infusion Remdesivir 100 mg/ Sodium (Chloride) 250 mls @ 125 mls/hr IV DAILY [facility] Stop: 09/27/20 11:59 Lisinopril (Lisinopril 20 Mg Tablet) 20 mg PO DAILY [facility] Last Admin: 09/24/20 09:37 Dose: 20 mg Documented by: Multivitamins/Minerals (Multivitamins,Ther W-Minerals Tablet) 1 tablet PO DAILY@0800 [facility] Last Admin: 09/24/20 09:37 Dose: 1 tablet Documented by: Nitroglycerin (Nitroglycerin (Inpatient Use) 0.4 Mg Tab.Subl) 0.4 mg SL Q5M PRN PRN Reason: CARDIAC/CHEST PAIN Ondansetron HCl (Ondansetron 4 Mg/2 Ml Vial) 4 mg IV Q8H PRN PRN PRN Reason: NAUSEA/VOMITING Potassium Chloride (Potassium Chloride Oral Tablet 10 Meq) 10 meq PO DAILY [facility] Last Admin: 09/24/20 09:37 Dose: 10 meq Documented by: Sodium Chloride (0.9% Saline Lock 10 Ml Syringe) 10 - 40 ml IV UD PRN PRN Reason: SALINE FLUSH Last Admin: 09/24/20 09:50 Dose: 10 ml Documented by: Sodium Chloride (Sodium Chloride 0.65% 1 [place].Btl) 2 spray NASAL TID PRN PRN PRN Reason: NASAL DRYNESS Last Admin: 09/23/20 15:31 Dose: 2 spray Documented by: STROKE Vital Signs/Narrative: Vital Signs Temp Pulse Resp BP Pulse Ox 09/24/20 09:30 97.7 F L 90 18 153/99 H 97 09/24/20 07:20 97 Medical Necessity - Tobacco Use Smoking Status: Former smoker Tobacco Use: Cigarettes Assessment/Plan All Active Problems COVID-19 (Acute) Hypoxemia (Acute) Atrial flutter (Acute) Acute congestive heart failure (Acute) 85-year-old admitted with a complaint of shortness of breath. #Acute on chronic heart failure 2D echo ordered. Records requested from his previous management advisor. He does have an ICD in place, so I suspect it is a systolic heart failure on IV lasix 40mg daily. monitor intake and output chart fluid restriction to 1500cc daily #COVID 19 infection on remdesivir and decadron ID on board. breathing treatment with bronchodilators #Atrial flutter still in atrial flutter, though rate controlled. on carvedilol. Cardiology on board 2D echo ordered started on lovenox 80mg q12 per cardiology. # THrombocytopenia and leucopenia wbc is 2.7 today; platelets are 64 it is unclear whether this is acute or chronic since he will need senior care anticoagulation, will consult hematology to get their input. #History of CAD s/p CABG; on aspirin. not On statin, likely due to advanced age. 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 stable #BPH: on proscar DVT prophylaxis: on therapeutic lovenox CODE STATUS: Full code Inpatient E&M: 29273 Subs Hosp L3
--- NOTE | 2020-09-24 10:29 | PCM.HP.ID ---
Problem List (1) COVID-19 Status: Acute Reason for Consult: [email or web address] Consulted by: Dr. Stout History of Present Illness: The patient is a 85 year old M with h/o CAD, CABG, valve replacement, ICD, presented to ED 09/23 with one day of much worsened dyspnea, fatigue, not feeling well. Reports some cough, wheeze, and congestion for almost 2 months. Got 1st dose covid shot 09/01. No sick contacts. Lives alone. No change in taste or smell, no muscle aches. Called EMS, sat was 83%, taken to ED, covid (+), admitted on dex and remdesivir. Feeling about the same today. Full ROS performed and neg except as noted above. - Medical History Past Medical History (Chronic Problems): Chronic Problems CAD (coronary artery disease) (Chronic) S/P CABG (coronary artery bypass graft) (Chronic) S/P MVR (mitral valve replacement) (Chronic) ICD (implantable cardioverter-defibrillator) in place (Chronic) Allergies/Adverse Reactions: Allergies diphenhydramine [From Benadryl] Allergy (Verified 09/23/20 09:25) PT UNSURE OF REACTION ofloxacin [From Floxin] Allergy (Verified 09/23/20 09:25) Other Home Medications: Ambulatory Orders Medication Instructions Recorded Albuterol Inhaler [Ventolin Hfa] 1 - 2 puff INHALATION Q4H PRN PRN 09/22/20 #1 inhaler Aspirin [Aspirin, Baby] 81 mg PO DAILY@0800 09/22/20 Carvedilol [Coreg (Beta Latoya)] 12.5 mg PO BID 09/22/20 Enalapril Maleate 20 mg PO DAILY 09/22/20 Finasteride 5 mg PO DAILY 09/22/20 Furosemide [Lasix] 40 mg PO DAILY 09/22/20 Potassium Chloride 10 meq PO DAILY 09/22/20 Cyanocobalamin (Vitamin B-12) 2,000 mcg PO DAILY 09/23/20 [Vitamin B-12] Multivitamin with Minerals 1 tab PO DAILY 09/23/20 [Multiple Vitamin] [place]-3 Fatty Acids/Fish Oil 1 ea PO DAILY 09/23/20 [[place] 3 1,000 mg Softgel] Vitamin D3 1,000 unit PO DAILY 09/23/20 - Social History SMOKING STATUS:: Former smoker Vital Signs Temp Pulse Resp BP Pulse Ox 97.7 F L 90 18 153/99 H 97 09/24/20 09:30 09/24/20 09:30 09/24/20 09:30 09/24/20 09:30 09/24/20 09:30 Oxygen Flow Rate (L/min) 1 Oxygen Delivery Method Nasal Cannula Weight: 76.9 kg Body Mass Index (BMI) 28.0 Laboratory Tests Past 24 Hrs 09/23/20 09/23/20 09/23/20 08:10 08:10 12:25 WBC RBC Hgb Hct MCV MCH MCHC RDW Std Deviation RDW Coeff of Daryl Plt Count MPV Immature Gran % (Auto) Neut % (Auto) Lymph % (Auto) [place] % (Auto) Eos % (Auto) Baso % (Auto) Absolute Neuts (auto) Absolute Lymphs (auto) Nucleated RBC % Diff Path Review D-Dimer Quant (PE/DVT) 0.68 H* Sodium Potassium Chloride Carbon Dioxide Anion Gap BUN Creatinine Estim Creat Clear Calc Est GFR (MDRD) Af Amer Est GFR (MDRD) Non-Af BUN/Creatinine Ratio Glucose Calcium Total Bilirubin AST ALT 30 Alkaline Phosphatase 92 Total Creatine Kinase 38 L Troponin I Total Protein Albumin Globulin Albumin/Globulin Ratio Triglycerides Cholesterol LDL Cholesterol VLDL Cholesterol HDL Cholesterol Procalcitonin 09/23/20 09/23/20 09/23/20 12:25 12:25 15:25 WBC RBC Hgb Hct MCV MCH MCHC RDW Std Deviation RDW Coeff of Daryl Plt Count MPV Immature Gran % (Auto) Neut % (Auto) Lymph % (Auto) [place] % (Auto) Eos % (Auto) Baso % (Auto) Absolute Neuts (auto) Absolute Lymphs (auto) Nucleated RBC % Diff Path Review D-Dimer Quant (PE/DVT) Sodium Potassium Chloride Carbon Dioxide Anion Gap BUN Creatinine Estim Creat Clear Calc Est GFR (MDRD) Af Amer Est GFR (MDRD) Non-Af BUN/Creatinine Ratio Glucose Calcium Total Bilirubin AST ALT Alkaline Phosphatase Total Creatine Kinase Troponin I 0.027 0.030 Total Protein Albumin Globulin Albumin/Globulin Ratio Triglycerides Cholesterol LDL Cholesterol VLDL Cholesterol HDL Cholesterol Procalcitonin 0.09 09/24/20 09/24/20 04:15 04:15 WBC 2.7 L RBC 4.21 L Hgb 14.2 Hct 43.8 MCV 104.0 H MCH 33.7 H MCHC 32.4 RDW Std Deviation 55.6 H RDW Coeff of Daryl 14.4 Plt Count 64 L MPV 11.5 Immature Gran % (Auto) 0.400 Neut % (Auto) 59.6 Lymph % (Auto) 19.6 [place] % (Auto) 19.6 H Eos % (Auto) 0.0 Baso % (Auto) 0.8 Absolute Neuts (auto) 1.6 L Absolute Lymphs (auto) 0.52 L Nucleated RBC % 0 Diff Path Review May foll D-Dimer Quant (PE/DVT) Sodium 140 Potassium 3.8 Chloride 102 Carbon Dioxide 32.0 Anion Gap 6 BUN 32 H Creatinine 1.63 H Estim Creat Clear Calc 29.90 Est GFR (MDRD) Af Amer 52 L Est GFR (MDRD) Non-Af 43 L BUN/Creatinine Ratio 19.6 Glucose 120 H Calcium 8.3 L Total Bilirubin 0.80 AST 23 ALT 23 Alkaline Phosphatase 81 Total Creatine Kinase Troponin I Total Protein 6.4 Albumin 3.0 L Globulin 3.4 Albumin/Globulin Ratio 0.9 Triglycerides 56 Cholesterol 138 LDL Cholesterol 80 VLDL Cholesterol 11 HDL Cholesterol 47 Procalcitonin - Other Studies Radiology: [] reviewed Other Studies: [] Route of nutrition/ use of supplements: [] Nutritional Intake: [] IV Site: [] Toth Catheter: [] - Physical Exam General: Alert, Cooperative, No apparent distress HEENT: Atraumatic, PERRLA, EOMI Neck: Supple, No Nodes Lungs: Clear to auscultation, Diminished Cardiovascular: Regular rate, Regular Rhythm Abdomen: Soft, Non Tender, Non-Distended Extremities: No edema Skin: No rashes Musculoskeletal: No Tenderness to Palpation of Joints or Extremities Neurological: Cranial nerves II-XII grossly intact - Assessment/Plan Antibiotics: [] Assessment/Plan: [] Active and Suspected Problems COVID-19 (Acute) Hypoxemia (Acute) Atrial flutter (Acute) Acute congestive heart failure (Acute) covid with hypoxia - Sx worsened 09/22/20, got 1st dose covid vaccine 09/01/20, not clear when infection started. On dex and remdesivir, will change dex to po. O2 much improved. He was driven to the hospital by granddaughter, neither masked, recommend she get tested and quarantine. Plan on 20 days of quarantine, 10 days of dex. 2nd shot of vaccine will need to be delayed by two weeks. Will follow, thank you.
[2020-09-24 11:46] LABS: Pathologist Review Reviewed
[2020-09-24 11:52] LABS: Pathologist Review Reviewed
--- NOTE | 2020-09-24 12:57 | CASEMGMT ---
RN CM NOTE: Attempted to contact pt for initial RN CM assessment. Called pt's room and also his cell phone. No answer. RN CM to attempt at a later time. Doni PERES RN CM
--- NOTE | 2020-09-24 13:50 | CASEMGMT ---
JOSEPHINE TORRES ASSESSMENT + COVID-19. In isolation precautions. COVID test done 09/22 @ [facility]. JOSEPHINE TORRES placed call to pt's room for initial transition planning/care coordination assessment. JOSEPHINE TORRES introduced self and role at [facility]. Pt voices understanding and consents to assessment at this time. Pt is A/O at this time and answers all questions appropriately. Care providers, pharmacy, and demographics verified/updated at this time. PCP: Dr Prabhu Vee Specialists: Pt was seeing Dr Kay- cardiology in [place] but is transferring to Dr Fay--[facility]. Dr Cooper--nephrology in [place], Dr Ronnie Edmond--urology in [facility] Pharmacy: [facility] Retail Insurance:[employer], [employer] Prescription Benefit: yes Living Will/HPOA: Has both LW and Healthcare POA: sons, Stevan and Sagar. LNOK: Has 5 sons. Stevan and Sagar are POA. Living Arrangements: Lives alone in [facility] apartments. Independent w/ADL's and IADL's. Pt states his in December and he is currently taking a grieving class at his [employer] which has been very helpful. Son, Stevan, supportive and calls to check on him daily. He updates other family and they call to check on him t/o the day as well. Sons or granddaughter's will help with any needs and can citrus picker groceries, supplies, and medications as needed. Transportation: Pt states drives self and states no transportation concerns at this time. Family can help as needed. DME: States has the following DME: pulse ox. Pt does not have home O2. Pt states no need for further DME at this time. HHC/SNF: No history of either. Denies needs and no needs identified. Pt mentioned that he is scheduled to have his 2nd Covid vaccine this coming Tuesday. Pt made aware, per Dr Baltazar/ID, this should be delayed by 2 weeks. Pt voices understanding. Pt wishes to return home and states has no concerns with going home at time of discharge. CM to follow for home oxygen needs and any further discharge planning/needs. Pt voices no further concerns/needs at this time. Advised pt to ask for CM if any further questions/concerns/needs arise. Voices understanding. PLAN: Home w/family support and discharge plans in place. Follow for any O2 needs @ d/c. Doni SIMONN JOSEPHINE CM
[2020-09-24] MEDS: Sodium Chloride 0.65% 1 SPRAY SPRAY.BTL 2 SPRAY NASAL (15:44)
--- NOTE | 2020-09-24 16:50 | ONC.CONS.INP ---
Subjective Date of Service:: 09/24/20 Chief Complaint: thrombocytopenia/leukopenia History of Present Illness: Mr. Aníbal Le is a very pleasant 85 year old gentleman with a PMH positive for CAD, BPH, CHF who presented to [facility] ED with c/o dyspnea. SPO2 was 83% on RA at initial presentation. COVID PCR positive. Found to be tachycardic and in atrial flutter. CBC showed WBC 4.2, Hgb 15.6 and platelets 60,000. CXR showed no acute cardiopulmonary pathology. EKG also showed no acute ST changes. He was subsequently admitted for management of acute on chronic exacerbation of heart failure of unknown EF as well as COVID-19 infection. Given dex/remdesivir. Lovenox given. Platelets this morning 64,000. Concern was raised about anticoagulating in the setting of thrombocytopenia. Patient states he has never been told any of his blood counts were low. Underwent routine lab work last week at [facility]. He denies any family history of bleeding disorders, further denies EtOH use or history of thyroid dysfunction. Denies any overt bleeding but admits he bruises easily, on ASA 81 mg daily but otherwise no anticoagulation. This was a telehealth consultation. Interview with the patient occurred via telephone. 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 (mitral valve replacement) (Chronic) ICD (implantable cardioverter-defibrillator) in place (Chronic) Past Medical/Surgical History: Past Medical History - Most Recent Inpatient Visit Past Medical History Start: 09/23/20 10:22 Text: Status: Complete Freq: ONCE Protocol: Document 09/23/20 10:49 MADDISON (Rec: 09/23/20 10:54 YESY [id number]) BMI Required to complete PM What is Patient's BMI 28.1 Past Medical History Unable History Recalled No Query Text:Pt Unable/Family Not Present Neurologic Medical History Hx Dementia/Alzheimer's No Hx Parkinson's Disease No Hx Migraines No Cardiac Medical History VTE Present on Admission No Hx of Deep Vein Thrombosis/VTE/PE No Hx Hypertension Yes Hx Chest Pain/Angina No Hx Heart Attack No Hx Cardiac Surgery/Stents/Etc. Yes Hx Heart Failure Yes Hx Pacemaker/AICD Yes Hx Irregular Heartbeat and/or Afib Yes: afib now Hx Anticoagulant Therapy Yes: ASA Query Text:(Coumadin, Aspirin, Plavix, Xarelto, etc.) Hx Pain in Legs when Walking/Leg Cramps No Respiratory Medical History Hx COPD No Hx Emphysema No Hx Smoking No Smoking Status Former smoker Tobacco Use Cigarettes Hx Smoking Cessation Date 06/07/1963 Hx Tobacco Use in last 12 months No Hx Sleep Apnea No Do you snore loudly (louder than talking No or can be heard through closed doors)? Do you often feel tired/ fatigued/ No sleepy during daytime? Has anyone observed you stop breathing No during sleep? STOP Results Negative GI Medical History Hx Ulcer No Hx Hepatitis No Hx Cirrhosis No Hx GI Bleed No Hx Unplanned Weight Loss No Genitourinary Medical History Indwelling Catheter in Place on Arrival/ No Admission Hx Renal Disease Yes Hx Dialysis No Musculoskeletal History Hx Arthritis Yes Hx Rheumatoid Arthritis No Endocrine Medical History Hx Diabetes No Hematologic Medical History Hx of Blood Transfusion Yes Hx of Transfusion in last 3 Months No Ever experience any problems with No transfusion(s)? Hx of Preganancy in last 3 Months N/A Nurse Filling Out Transfusion & LMORROW Questions: Date: 09/23/20 Time: 10:52 Psycho/Social Medical History Hx Depression Yes Hx Anxiety No Hx Behavior Disorder No Hx Alcohol Use No Hx Substance Use No Other Medical History Hx Blood Disorders No Hx Anemia No Hx Cancer Yes: SKIN Hx Drug Resistant Organism No Wound/Pressure Injury Present on Arrival No /Admission Query Text:If yes, chart assessment in Shift/Clinical Findings Central Line/PICC/VAD Present on Arrival No /Admission Antibiotics within last 7 days? No Risk for Readmission Number of Risk Factors 5 At Risk for Readmission Patient is At Risk For Readmission Patient is eligible for Call Back Y - Social History Lives: Alone Smoking Status: Former smoker Tobacco Use: Cigarettes Alcohol: None Drugs: None Allergies/Adverse Reactions: Allergy/AdvReac Type Severity Reaction Status Date / Time diphenhydramine Allergy PT UNSURE Verified 09/23/20 09:25 [From Benadryl] OF REACTION ofloxacin [From Floxin] Allergy Other Verified 09/23/20 09:25 Review of Systems Constitutional:: Reports: Weakness, Fatigue. Denies: Fever, Sweats, Weight loss, Appetite change, Chills Cardiovascular:: Reports: Dyspnea on exertion. Denies: Chest pain, Palpitations, Shortness of breath Respiratory: Reports: Cough. Denies: Hemoptysis Gastrointestinal:: Denies: Abdominal pain, Nausea, Vomiting, Diarrhea, Constipation, Hematochezia Genitourinary: Denies: Hematuria Skin: Denies: Rash, Skin Changes Neurological:: Denies: Headache Vital Signs Temperature 98.2 F 09/24/20 15:38 Temperature Source Oral 09/24/20 15:38 Pulse Rate 86 09/24/20 15:38 Respiratory Rate 18 09/24/20 15:38 Respiratory Effort Non-Labored 09/24/20 15:40 Respiratory Depth Normal 09/24/20 15:40 Respiratory Pattern Normal 09/24/20 15:40 Blood Pressure 141/82 H 09/24/20 15:38 Blood Pressure Mean 101 09/24/20 15:38 Blood Pressure Source Monitor 09/24/20 15:38 Blood Pressure Position Sitting 09/24/20 15:38 Blood Pressure Location Right Arm 09/24/20 15:38 Pulse Ox 97 09/24/20 15:38 Oxygen Delivery Method Nasal Cannula 09/24/20 15:40 Oxygen Flow Rate (L/min) 1 09/24/20 15:40 - Physical Exam General: - - Unable to perform physical exam as this was a telehealth visit conducted via telephone Laboratory Data: Laboratory Tests 09/24/20 09/24/20 09/23/20 Range/Units 04:15 04:15 08:10 WBC 2.7 L (4.4-11.0) K/mm3 RBC 4.21 L (4.6-6.2) M/mm3 Hgb 14.2 (13.0-16.5) g/dL Hct 43.8 (40-54) % MCV 104.0 H (80-94) fL MCH 33.7 H (27.0-32.0) pg MCHC 32.4 (32-36) g/dL RDW Std Deviation 55.6 H (35.1-43.9) fl RDW Coeff of Daryl 14.4 (11.6-14.6) % Plt Count 64 L (150-450) K/mm3 MPV 11.5 (6.2-12.0) fl Immature Gran % (Auto) 0.400 (0.0-0.9) % Neut % (Auto) 59.6 (47-70) % Lymph % (Auto) 19.6 (19-41) % [place] % (Auto) 19.6 H (0-10) % Eos % (Auto) 0.0 (0-5) % Baso % (Auto) 0.8 (0-1) % Absolute Neuts (auto) 1.6 L (2.0-7.7) X10^3/uL Absolute Lymphs (auto) 0.52 L (0.83-4.51) X10^3/uL Nucleated RBC % 0 (0-5) % Diff Path Review Reviewed Reviewed Sodium 140 (136-145) mmol/L Potassium 3.8 (3.5-5.1) mmol/L Chloride 102 (98-107) mmol/L Carbon Dioxide 32.0 (21.0-32.0) mmol/L Anion Gap 6 (5-15) BUN 32 H (7-18) mg/dL Creatinine 1.63 H (0.70-1.30) mg/dL Estim Creat Clear Calc 29.90 ml/min Est GFR (MDRD) Af Amer 52 L (>60) mL/min Est GFR (MDRD) Non-Af 43 L (>60) mL/min BUN/Creatinine Ratio 19.6 (10-20) RATIO Glucose 120 H (74-106) mg/dL Calcium 8.3 L (8.5-10.1) mg/dL Total Bilirubin 0.80 (0.20-1.00) mg/dL AST 23 (15-37) U/L ALT 23 (16-61) U/L Alkaline Phosphatase 81 (45-117) U/L Total Protein 6.4 (6.4-8.2) g/dL Albumin 3.0 L (3.2-5.0) g/dL Globulin 3.4 (2.2-4.2) g/dL Albumin/Globulin Ratio 0.9 (0.9-2.4) RATIO Triglycerides 56 ( - 199) mg/dL Cholesterol 138 (200) mg/dL LDL Cholesterol 80 (0-130) mg/dL VLDL Cholesterol 11 (5-40) mg/dL HDL Cholesterol 47 (40 - ) mg/dL Diagnostic Data: Diagnostic Data Chest X-Ray 09/23/20 08:15 IMPRESSION: 1. No acute cardiopulmonary pathology. 2. No significant interval change when compared to 09/22/2020. Electronically Signed: Robbie Lawrence MD at 8:32 EST , Service support , Assessment and Plan Mr. Aníbal Le is a very pleasant 85-year-old gentleman with a history positive for CHF, CAD, BPH who presented to [facility] ED on 09/23/2020 with complaints of dyspnea and was found to be COVID-19 positive. Admitted to ICU for management of acute on chronic heart failure and COVID-19 infection. Thrombocytopenia and leukopenia noted at admission. 1. Thrombocytopenia?as evidenced by platelet count today 64,000, 60,000 on admission yesterday. Patient believes he had routine blood work done at [facility] 1 week ago. Obtaining old lab records would helpful. He denies any overt bleeding although bruises easily (on ASA 81 mg). Given platelets are above 50,000 benefit of Lovenox outweighs bleeding risks at this time. Advised continue anticoagulation as long as platelets remain above 50,000 and in the absence of bleeding. 2. Leukopenia?as evidenced by white blood cell count 2.7, ANC 1.6 today. Occurring in the setting of active infection. 3. Macrocytosis?in the absence of EtOH use an 85-year-old gentleman. Would recommend repeating CBC and obtaining additional lab work in in the ambulatory setting. Case was discussed with Dr. Potter who was in agreement with the aforementioned plan. Recommend Mr. Le follows with [place] [facility] care in approximately 2 months for follow-up blood work. Coco Sinha, MSN, HIGHWAY DESIGN ENGINEER, AOCNP Medications: Prescriptions This Visit Medication Instructions Recorded Cyanocobalamin (Vitamin B-12) 2,000 mcg PO DAILY 09/23/20 [Vitamin B-12] Multivitamin with Minerals 1 tab PO DAILY 09/23/20 [Multiple Vitamin] [place]-3 Fatty Acids/Fish Oil 1 ea PO DAILY 09/23/20 [[place] 3 1,000 mg Softgel] Vitamin D3 1,000 unit PO DAILY 09/23/20 Medications Added to Medication List This Visit Category Date Time Status Aspirin [Aspirin, Baby] Med 09/24/20 08:00 Active 81 mg PO DAILY@0800 Cholecalciferol (VIT D3) [Vitamin D (25mcg)] Med 09/24/20 10:00 Active 1,000 unit PO DAILY Cyanocobalamin [Vitamin B12] Med 09/24/20 10:00 Active 2,000 mcg PO DAILY Dexamethasone [Decadron] Med 09/24/20 10:00 Active 6 mg PO DAILY Finasteride [Proscar] Med 09/24/20 10:00 Active 5 mg PO DAILY Furosemide [Lasix] Med 09/24/20 10:00 Active 40 mg IV DAILY Lisinopril [Zestril] Med 09/24/20 10:00 Active 20 mg PO DAILY Multivitamins,Ther W-Minerals [Multivitamin With Med 09/24/20 08:00 Active Minerals (BKC)] 1 tablet PO DAILY@0800 Potassium Chloride Oral Tablet [K-Dur] Med 09/24/20 10:00 Active 10 meq PO DAILY Remdesivir 100 mg Med 09/24/20 10:00 Active 0.9% Normal Saline 230 ml IV DAILY Primary Care Provider: Dr. Prabhu Vee MD Referring Provider: - Problem List (1) Thrombocytopenia Status: Acute (2) Leukopenia Status: Acute (3) Macrocytosis Status: Acute
[2020-09-24] MEDS: Albuterol Sulfate 8 gm Inhaler (60 puffs) INHALATION (17:50)
--- NOTE | 2020-09-24 18:35 | PN.CARD_ITS ---
Subjectve: The patient is awake and alert. He is currently without oxygen therapy. He denies any acute symptoms. Objective: Vital Signs Temp Pulse Resp BP Pulse Ox 98.2 F 86 18 141/82 H 97 09/24/20 15:38 09/24/20 15:38 09/24/20 15:38 09/24/20 15:38 09/24/20 15:38 Oxygen Flow Rate (L/min) 1 Oxygen Delivery Method Nasal Cannula Weight: 169 lb 8.568 oz Body Mass Index (BMI) 28.0 Intake and Output for Last 24 Hours 09/22/20 09/23/20 09/24/20 23:59 23:59 23:59 Intake Total 545 / 545 850 / 850 Output Total 1550 / 1550 1250 / 1250 Balance -1005 / -1005 -400 / -400 General: Awake, Alert, Oriented x 3, Cooperative, No Acute Distress HEENT: Atraumatic, Normocephalic, PERRL, EOMI, Sclera Non Icteric Neck: Supple, Good ROM, No JVD Lungs: Clear to auscultation Cardiovascular: Irregular Rhythm, Normal S1, Normal S2 Abdomen: Bowel Sounds Present, Soft Extremities: Mild RLE Edema, Trace LLE Edema Neurological: No Focal Motor or Sensory Deficit Psych/Mental Status: Appropriate 09/24/20 04:15: WBC 2.7 L, RBC 4.21 L, Hgb 14.2, Hct 43.8, MCV 104.0 H, MCH 33.7 H, MCHC 32.4, Plt Count 64 L, MPV 11.5, Immature Gran % (Auto) 0.400, Neut % (Auto) 59.6, Lymph % (Auto) 19.6, [place] % (Auto) 19.6 H, Eos % (Auto) 0.0, Baso % (Auto) 0.8, Absolute Neuts (auto) 1.6 L, Nucleated RBC % 0 09/24/20 04:15: Sodium 140, Potassium 3.8, Chloride 102, Carbon Dioxide 32.0, Anion Gap 6, BUN 32 H, Creatinine 1.63 H, Est GFR (MDRD) Af Amer 52 L, Est GFR (MDRD) Non-Af 43 L, BUN/Creatinine Ratio 19.6, Glucose 120 H, Calcium 8.3 L, Total Bilirubin 0.80, Triglycerides 56, Cholesterol 138, LDL Cholesterol 80, VLDL Cholesterol 11, HDL Cholesterol 47 Rhythm: Atrial flutter; intermittent electronic ventricular paced rhythm ECHO: [facility], 07-22-2020, left ventricle: LVEF 45%; left ventricle mildly dilated; left atrium severely dilated; right ventricle severely enlarged and dysfunctional; right atrium severely dilated; mitral valve with a #27 epic porcine mitral valve replacement well-seated with no MR; moderate to severe TR; mild TR; mild to moderate AI; mild dilatation of the aortic root; estimated RV systolic pressure of approximately 83 mmHg Cardiac Cath: [facility]: 05-06-2017: Left main coronary artery patent; LAD 50% stenosis; first diagonal branch 99% stenosis; LCx less than 30% stenosis; intermediate ramus 100% stenosis; RCA chronically occluded; COLLINS to the LAD patent; SVG to the intermediate ramus patent; chronic occlusion of an SVG to the diagonal branch and an SVG to the RCA; severe MR status post mitral valve repair; recommendation for redo CABG and mitral valve replacement CT Surgery: [facility]: 07-01-2017: SVG to the PDA; mitral valve replacement with a 27 mm epic porcine tissue valve; removal of existing mitral annuloplasty ring Medical Necessity - Tobacco Use Smoking Status: Former smoker Tobacco Use: Cigarettes Assessment/Plan 1. CAD status post CABG and redo CABG The patient's medical records have been received. They have been reviewed. His most recent CABG from 2016 was reviewed noting an SVG to the PDA superimposed upon a previous cardiac catheterization reporting a patent COLLINS to the LAD and a patent SVG to the intermediate ramus and a previously occluded SVG to the diagonal branch and SVG to the RCA. The present time the patient will need to continue medical therapy and follow-up as deemed appropriate. 2. Status post MVR The patient's medical records were reviewed. It appears he originally received mitral valve repair and subsequently has received mitral valve replacement with a #27 epic porcine tissue valve. He will need continued AHA antibiotic prophylaxis. 3. Atrial flutter He does appear to be in atrial flutter. His records do not appear to mention an underlying atrial dysrhythmia. The duration of his atrial flutter is unknown. At the present time he will need continued rate control therapy and anticoagulant therapy as long as he is able to do so with respect to his underlying hematologic issues especially thrombocytopenia. Over time he could be considered for future synchronized biphasic DC cardioversion in an attempt to regain sinus rhythm, however, this may be challenging based upon his most recent echocardiogram suggesting severe biatrial enlargement. 4. CHF The patient may have an element of acute on chronic CHF. Again his overall LV systolic function is unknown at this time. At the moment he is receiving diuretic therapy. States in the past he has needed up to 80 mg of furosemide/Lasix today to help assist with his volume status. He will need continued medical management. He will need follow-up of his renal function. 5. ICD He does have an ICD in place. He states it is never discharged. Again this can be interrogated in the future as deemed appropriate. 6. Hypoxemia He was hypoxic. The etiology may be multifactorial with a combination of any cardiovascular related issues such as acute on chronic CHF as well as his COVID- 19 status. He appears to be improved at this time with his medical therapy and his O2 support. 7. COVID-19 He underwent 2 COVID-19 test which were reported as positive. He is receiving medical therapy with dexamethasone and remdesivir. Followed by infectious disease. 8. Thrombocytopenia He was evaluated via telehealth evaluation today by hematology oncology. It appears their comment is that he can continue anticoagulant therapy as long as his platelet count remains above 50,000. He will need continued future follow-up with them for further evaluation and care. Overall, from a cardiac standpoint, he will continue medical management with adjustment as deemed appropriate. He will need continued future outpatient cardiovascular follow-up as well. Hopefully he will be able to remain on anticoagulant therapy that will allow him to minimize his risk of thromboembolic disease from his underlying atrial dysrhythmia and an opportunity for an attempt at future synchronized biphasic DC cardioversion to regain sinus rhythm. Patient's case has been discussed and reviewed with the patient and previously with Dr. Stout. This note was generated using a voice recognition system and there may be incorrect words, spelling or punctuation that were not noted when reviewing the office note prior to saving.
[2020-09-25] VITALS (9 sets, daily range): BP systolic 137–171; BP diastolic 84–90; PULSE 76–91; RESP 16–18; TEMP 36.3–36.6; O2SAT 93–98
[2020-09-25] MEDS: Albuterol Sulfate 8 gm Inhaler (60 puffs) INHALATION (04:36)
[2020-09-25 04:59] LABS: Absolute Lymphocyte Count 0.59 X10^3/uL (0.83-4.51); Absolute Neutrophil Count 3.1 X10^3/uL (2.0-7.7); Hematocrit 43.4 % (40-54); Hemoglobin 13.8 g/dL (13.0-16.5); Lymphocyte # 0.59 X10^3/ul (4.0); Lymphocyte % 13.8 % (19-41); Mean Corp Hgb Conc 31.8 g/dL (32-36); Mean Corpuscular Hgb 33.4 pg (27.0-32.0); Mean Corpuscular Volume 105.1 fL (80-94); Mean Platelet Vol. 11.6 fl (6.2-12.0); Monocyte# 0.57 X10^3/uL; Monocyte% 13.3 % (0-10); NRBC Flagged by Analyzer 0 % (0-5); Neutrophil # 3.12 X10^3/uL (2.7-7.7); Neutrophil % 72.7 % (47-70); POSITIVE COUNT YES; POSITIVE DIFFERENTIAL YES; Platelet Count 67 K/mm3 (150-450); RBC Distribution Width CV 14.6 % (11.6-14.6); RBC Distribution Width SD 56.8 fl (35.1-43.9); Red Blood Count 4.13 M/mm3 (4.6-6.2); White Blood Count 4.3 K/mm3 (4.4-11.0)
[2020-09-25 05:00] LABS: Differential Indicated SCAN CRITERIA MET
[2020-09-25 05:20] LABS: AST(SGOT) 25 U/L (15-37); Alanine Aminotransfer ALT/SGPT 24 U/L (16-61); Albumin, Serum 2.9 g/dL (3.2-5.0); Alkaline Phosphatase 78 U/L (45-117); Anion Gap 4 (5-15); BUN 42 mg/dL (7-18); BUN/Creat Ratio 28.8 RATIO (10-20); Bilirubin, Direct 0.31 mg/dL (0.00-0.30); Calcium,Total 8.1 mg/dL (8.5-10.1); Chloride 104 mmol/L (98-107); Creatinine, Serum 1.46 mg/dL (0.70-1.30); EST Glomerular Filtration Rate 49 mL/min (>60); Est Glom Filt Rate - Afr Amer 59 mL/min (>60); Estimated Creatinine Clearance 33.38 ml/min; Globulin 3.4 g/dL (2.2-4.2); Glucose 130 mg/dL (74-106); Potassium 3.9 mmol/L (3.5-5.1); Protein, Total 6.3 g/dL (6.4-8.2); Sodium Level 141 mmol/L (136-145)
[2020-09-25] MEDS: Enoxaparin 80 MG/0.8 ML Syringe SC (06:05)
--- NOTE | 2020-09-25 10:05 | CASEMGMT ---
Addendum entered by Matthew Hendrickson 09/25/20 14:09: Ambulatory pulse ox has been done and pt does not qualify for Home O2. Eliquis has been e-scribed to [facility] Retail pharmacy. Call placed to [facility] Retail pharm and spoke w/Shreya. 30-day savings card has been applied and 1st 30 days is free. Per Shreya, [id number] cost will then be $42 for refills. Original Note: JOSEPHINE TORRES note: Pt has CHF and new onset A-flutter. Call placed to pt to discuss CCN. Pt made aware of CCN and he is agreeable to referral. Order placed. Call placed to James @ [facility] and she was notified of referral. Anticipate pt may be ready for discharge today. Per Dr Stout, pt to d/c home on Eliquis. Eliquis to be e-scribed to [facility] retail pharmacy and 30-day savings card to be applied. Will need ambulatory pulse ox prior to discharge. JOSEPHINE TORRES to follow for any O2 needs @ d/c. Doni PERES RN, CM
[2020-09-25] MEDS: dexAMETHasone 4 MG Tablet 6 MG PO (11:09)
[2020-09-25] MEDS: Potassium Chloride Oral Tablet 10 MEQ PO (11:09)
[2020-09-25] MEDS: Cyanocobalamin 500 MCG Tablet 2000 MCG PO (11:09)
[2020-09-25] MEDS: Multivitamins,Ther W-Minerals Tablet 1 TABLET PO (11:10)
[2020-09-25] MEDS: Aspirin 81 MG TAB.CHEW PO (11:10)
[2020-09-25] MEDS: amLODIPine 5 MG Tablet PO (11:10)
[2020-09-25] MEDS: Carvedilol 12.5 MG Tablet PO (11:10)
[2020-09-25] MEDS: Finasteride 5 MG Tablet PO (11:11)
[2020-09-25] MEDS: Furosemide 40 MG Tablet PO (11:17)
[2020-09-25] MEDS: Lisinopril 10 MG Tablet PO (11:17)
--- NOTE | 2020-09-25 11:37 | PCM.DC ---
- Discharge Diagnoses Current Active Problems: Current Active and Chronic Problems CAD (coronary artery disease) (Chronic) COVID-19 (Acute) Hypoxemia (Acute) Atrial flutter (Acute) Acute congestive heart failure (Acute) S/P CABG (coronary artery bypass graft) (Chronic) S/P MVR (mitral valve replacement) (Chronic) ICD (implantable cardioverter-defibrillator) in place (Chronic) You will use the following diet at home:: Cardiac Your food should be the consistency of: Regular Your liquids should be the consistency of: Regular/Thin Discharge Activity: Return to Normal Activity Weight Bearing Status: Weight bearing as tolerated Call your doctor if you observe: Fever of 101 or Higher, Shortness of breath, Swelling in the ankles, Chest pain, Increased palpitations (irregular heartbeat) Instructions: Heart Failure, ED Atrial Flutter Additional Instructions: to remain in self isolation till 10/13/2019. Aspirin stopped. Started on eliquis o/a of atrial flutter. To delay second covid shot by 2 weeks. Allergies/Adverse Reactions: Allergies diphenhydramine [From Benadryl] Allergy (Verified 09/23/20 09:25) PT UNSURE OF REACTION ofloxacin [From Floxin] Allergy (Verified 09/23/20 09:25) Other Medications to take at Discharge Albuterol Inhaler [Ventolin Hfa] 1 - 2 puff INHALATION Q4H PRN PRN #1 inhaler 09/22/20 Carvedilol [Coreg (Beta Latoya)] 12.5 mg PO BID 09/22/20 Enalapril Maleate 20 mg PO DAILY 09/22/20 Finasteride 5 mg PO DAILY 09/22/20 Furosemide [Lasix] 40 mg PO DAILY 09/22/20 Potassium Chloride 10 meq PO DAILY 09/22/20 Cyanocobalamin (Vitamin B-12) [Vitamin B-12] 2,000 mcg PO DAILY 09/23/20 Multivitamin with Minerals [Multiple Vitamin] 1 tab PO DAILY 09/23/20 [place]-3 Fatty Acids/Fish Oil [[place] 3 1,000 mg Softgel] 1 ea PO DAILY 09/23/20 Vitamin D3 1,000 unit PO DAILY 09/23/20 Apixaban [Eliquis] 2.5 mg PO BID #60 tab 09/25/20 Dexamethasone [Decadron] 6 mg PO DAILY #7 tab 09/25/20 The following prescriptions were given: Dexamethasone [Decadron] 6 mg PO DAILY #7 tab Transmission Status: Pending to [facility] Apixaban [Eliquis] 2.5 mg PO BID #60 tab Transmission Status: Pending to [facility] Primary Care Physician: Prabhu Vee MD [Primary Care Provider] - Please follow up with your Primary Care Physician in: 1-2 weeks Test Results: Test results from this visit will be discussed in further detail at your follow-up appointment, if applicable. Please Follow Up With: Finesse Davis MD When: 2 months after discharge Please Follow Up With: Jd Blunt MD When: 2-3 weeks Proposed Discharge Date: 09/25/20
[2020-09-25 12:57] LABS: Pathologist Review Reviewed
--- NOTE | 2020-09-25 20:04 | DS.PCM_ITS ---
Discharge Date and Diagnosis - Problem List Patient Problems: Active and Suspected Problems COVID-19 (Acute) Hypoxemia (Acute) Atrial flutter (Acute) Acute congestive heart failure (Acute) Thrombocytopenia (Acute) Leukopenia (Acute) Macrocytosis (Acute) Date of Admission: 09/23/20 Date of Discharge: 09/25/20 - Primary Discharge Diagnosis Acute Problems: Active Problems COVID-19 (Acute) Hypoxemia (Acute) Atrial flutter (Acute) Acute congestive heart failure (Acute) Thrombocytopenia (Acute) Leukopenia (Acute) Macrocytosis (Acute) - Secondary Discharge Diagnosis Chronic Problems: Chronic Problems CAD (coronary artery disease) (Chronic) S/P CABG (coronary artery bypass graft) (Chronic) S/P MVR (mitral valve replacement) (Chronic) ICD (implantable cardioverter-defibrillator) in place (Chronic) Hospital Course and Treatment Imaging Results: Diagnostic Data Chest X-Ray 09/23/20 08:15 IMPRESSION: 1. No acute cardiopulmonary pathology. 2. No significant interval change when compared to 09/22/2020. Electronically Signed: Robbie Lawrence MD at 8:32 EST , Service support , cardiology- Dr Blunt Infectious Disease- Dr Baltazar Operations: None Summary of Care Provided: The patient is a 85 year old M with a past medical history as outlined which includes heart failure was admitted via the ED on 09/23/2020 with a complaint of shortness of breath. Patient states shortness of breath had been going on for about 3 months and he had been following up with his donor services team leader in [place]. He had however recently moved to the [facility] and so was trying to transfer his care to a local donor services team leader. He was seen in the emergency room 1 day prior to admission with a complaint of shortness of breath which have been worsening. Covid PCR and antigen test done with both positive. He also had a nonproductive cough. He was discharged home as he was stable and not hypoxic. He however he states when he went home, shortness of breath worsened he felt like he was drowning because of shortness of breath. He therefore came back to the ED. He had associated orthopnea and PND. In the ED, he was noted to be saturating at 83% on room air and required oxygen to help him feel better. Vitals in the ED showed temperature of 98.6 Fahrenheit with pulse rate of 105, respiratory rate of 16 and blood pressure of 146/99. He was saturating at 95% on room air at time of review. His sodium was 139 and creatinine was 1.46. Initial troponin was negative. BNP was 909. CBC showed hemoglobin of 15.6 with WBC of 4.2 and platelets of 60. X-ray showed no acute cardiopulmonary pathology. EKG also showed no acute ST changes. He has been admitted to be managed for acute on chronic exacerbation of heart failure of unknown EF as well as COVID-19 infection. He was diuresed with IV lasix 40mg bid and started on remdesivir and prednisone. He was subsequently noted to be in atrial flutter. Cardiology was therefore consulted. He was started on PO carvedilol and therapeutic lovenox. Hematology was consulted o/a of thrombocytopenia, which appeared to be chronic. Hematology recommended that the benefits of anticoagulation outweighed the risks, and so patient could be anticoagulated for stroke thromboprophylaxis for atrial flutter. He remained stable, and shortness of breath resolved. He is to have a 2D echo on outpatient basis, once he is out of COVID isolation, and was discharged home on 09/25/2020. He was discharged on carvedilol, and on xarelto 15mg daily for stroke prophylaxis. Patient was unwilling to take eliquis, as he said he had taken it in the past and it gave him low blood pressure. He was therefore willing to try being on xarelto. He is to follow up with his PCP and donor services team leader in 1-2 weeks. He was discharged with a script for PO decadron 6mg daily x 7 days to complete a 10 day course. He is to to be in covid isolation at home till 10/12/2020, to make a total of 20 days of isolation since diagnosis as recommended by ID. Patient seen and examined prior to discharge. He had no complaints. Review of systems otherwise negative. Labs and vitals reviewed. Home meds reviewed and reconciled. Patient Problems: Active and Suspected Problems COVID-19 (Acute) Hypoxemia (Acute) Atrial flutter (Acute) Acute congestive heart failure (Acute) Thrombocytopenia (Acute) Leukopenia (Acute) Macrocytosis (Acute) - Physical Exam Vitals/I&O's: Vital Signs Temp Pulse Resp BP Pulse Ox 97.6 F L 78 16 137/84 H 96 09/25/20 14:25 09/25/20 14:25 09/25/20 14:25 09/25/20 14:25 09/25/20 14:25 Oxygen Flow Rate (L/min) 2 Oxygen Delivery Method Room Air Weight: 170 lb 3.15 oz Body Mass Index (BMI) 28.0 Intake and Output for Last 24 Hours 09/23/20 09/24/20 09/25/20 23:59 23:59 23:59 Intake Total 545 / 545 1090 / 1310 470 / 470 Output Total 1550 / 1550 1250 / 1250 200 / 200 Balance -1005 / -1005 -160 / 60 270 / 270 General: Alert, Oriented x3, Cooperative HEENT: Atraumatic, PERRLA, EOMI, Normocephalic Neck: Supple, No JVD, Negative Carotid Bruits Lungs: Clear to auscultation, Normal air movement Cardiovascular: No murmurs, Irregular Rate - atrial flutter, rate controlled. Abdomen: Bowel Sounds Present, Soft, Non Tender Extremities: No edema, Capillary Refill Less than 3 Seconds, Edema - mild 1+ edema, marcin of the RLE, which is chronic Skin: No rashes, No breakdown Musculoskeletal: No Tenderness to Palpation of Joints or Extremities Neurological: Cranial nerves II-XII grossly intact, Neuro grossly intact, Motor Exam 5/5 strength throughout Psych/Mental Status: Normal Affect, Appropriate, Alert and oriented to time, place, person, mood and affect Microbiology Past 72 Hours 09/23/20 08:30 Blood Culture (Wb) - Left Wrist Blood Culture - Preliminary No growth in 48 hours. 09/23/20 08:10 Blood Culture (Wb) - Right Forearm Blood Culture - Preliminary No growth in 48 hours. Laboratory Results 09/25/20 04:35: WBC 4.3 L, RBC 4.13 L, Hgb 13.8, Hct 43.4, MCV 105.1 H, MCH 33.4 H, MCHC 31.8 L, RDW Std Deviation 56.8 H, RDW Coeff of Daryl 14.6, Plt Count 67 L, MPV 11.6, Immature Gran % (Auto) 0.200, Neut % (Auto) 72.7 H, Lymph % (Auto) 13.8 L, Mckinley % (Auto) 13.3 H, Eos % (Auto) 0.0, Baso % (Auto) 0.0, Absolute Neuts (auto) 3.1, Absolute Lymphs (auto) 0.59 L, Nucleated RBC % 0, Diff Path Review Reviewed 09/25/20 04:35: Sodium 141, Potassium 3.9, Chloride 104, Carbon Dioxide 33.0 H, Anion Gap 4 L, BUN 42 H, Creatinine 1.46 H, Estim Creat Clear Calc 33.38, Est GFR (MDRD) Af Amer 59 L, Est GFR (MDRD) Non-Af 49 L, BUN/Creatinine Ratio 28.8 H , Glucose 130 H, Calcium 8.1 L, Total Bilirubin 0.60, Direct Bilirubin 0.31 H, AST 25, ALT 24, Alkaline Phosphatase 78, Total Protein 6.3 L, Albumin 2.9 L, Globulin 3.4 Discharge Diet: Low fat/ Low Cholesterol Discharge Activity: Return to Normal Activity Weight Bearing Status: Weight bearing as tolerated Call your doctor if you observe: Fever of 101 or Higher, Shortness of breath, Swelling in the ankles, Chest pain, Increased palpitations (irregular heartbeat) Home Medications: Medications to take at Discharge Albuterol Inhaler [Ventolin Hfa] 1 - 2 puff INHALATION Q4H PRN PRN #1 inhaler 09/22/20 Carvedilol [Coreg (Beta Latoya)] 12.5 mg PO BID 09/22/20 Enalapril Maleate 20 mg PO DAILY 09/22/20 Finasteride 5 mg PO DAILY 09/22/20 Furosemide [Lasix] 40 mg PO DAILY 09/22/20 Potassium Chloride 10 meq PO DAILY 09/22/20 Cyanocobalamin (Vitamin B-12) [Vitamin B-12] 2,000 mcg PO DAILY 09/23/20 Multivitamin with Minerals [Multiple Vitamin] 1 tab PO DAILY 09/23/20 Newfield-3 Fatty Acids/Fish Oil [[place]field 3 1,000 mg Softgel] 1 ea PO DAILY 09/23/20 Vitamin D3 1,000 unit PO DAILY 09/23/20 Dexamethasone [Decadron] 6 mg PO DAILY #7 tab 03/11/21 Rivaroxaban [Xarelto] 15 mg PO DAILY #30 tab 09/25/20 Following Prescriptions Were Given to Patient: Dexamethasone [Decadron] 6 mg PO DAILY #7 tab Transmission Status: Received by [facility] Rivaroxaban [Xarelto] 15 mg PO DAILY #30 tab Transmission Status: Received by [facility] Primary Care Physician: Prabhu Vee MD [Primary Care Provider] - Please follow up with your Primary Care Physician in: 1-2 weeks Please Follow Up With: Finesse Davis MD When: 2 months after discharge Please Follow Up With: Jd Blunt MD When: 2-3 weeks Patient Instructions: Heart Failure, ED Atrial Flutter Disposition: Home Minutes spent on discharge:: 40 Patient Condition:: Stable Medical Necessity - Tobacco Use Smoking Status: Former smoker Tobacco Use: Cigarettes Meaningful Use Info Meaningful Use Diagnoses (Choose all that apply): None applicable - CHF KEVIN/ARB ordered at discharge?: Yes Documented LVEF (%): 30 Inpatient E&M: 25163 Disch Hosp
--- NOTE | 2020-09-26 11:23 | CASEMGMT ---
JOSEPHINE TORRES Discharge Follow-Up Phone Call. Lace: 6 Strata:2 Discharge Date: 09/25/20 Adm Dx: COVID-19, Acute on Chronic HF, A-flutter Attempted discharge f/u phone call. No answer--Message came on w/pt identifier. VM left for pt to return call to CM if he has any questions about the discharge instructions, medications, f/u appts, or any other needs/concerns. Phone number provided to this RN CM. Doni SIMONN JOSEPHINE CM
--- NOTE | 2020-10-03 10:43 | CCN.REFER ---
Patient adamantly declines CCN.
== END 2020-09-25 16:40 | disposition home or self-care (01) | DRG 177 ==
LOC: ED 08:51 → ICU 09:33
PROVIDERS: Internal Medicine Infectious Disease; Admitting Provider Student in an Organized Health Care Education/Training Program; Emergency Provider Emergency Medicine; PCP Family Medicine; Visit Provider Student in an Organized Health Care Education/Training Program
DX: U07.1 COVID-19 (principal); I50.23 Acute on chronic systolic (congestive) heart failure; I48.92 Unspecified atrial flutter; I49.3 Ventricular premature depolarization; R09.02 Hypoxemia; I25.10 Atherosclerotic heart disease of native coronary artery without angina pectoris; N40.0 Benign prostatic hyperplasia without lower urinary tract symptoms; Z79.82 Long term (current) use of aspirin; Z79.899 Other long term (current) drug therapy; Z87.891 Personal history of nicotine dependence; Z95.810 Presence of automatic (implantable) cardiac defibrillator; Z95.1 Presence of aortocoronary bypass graft; Z95.3 Presence of xenogenic heart valve
CPT/HCPCS: 71045; 80048; 80053; 80061; 80076; 82550; 83605; 83880; 84075; 84145; 84460; 84484; 85025; 85379; 85610; 85730; 87040; 87426; 87635; 93005; 94640; 97161; 97166; 99251; 99284; J7050; A4216; G0463; J1940; U0002

== ENCOUNTER 2020-10-10 10:46 | Inpatient (IN) | payer MEDICARE, OTHER, SELFPAY ==
[2020-09-23 10:38] VITALS: BMI 28.0
[2020-10-10] VITALS (24 sets, daily range): BP systolic 77–142; BP diastolic 57–91; PULSE 74–89; RESP 16–29; TEMP 36.8–37.9; O2SAT 88–100; BMI 30.2; BMI 28.3
--- NOTE | 2020-10-10 11:03 | EKG12_ITS ---
Test Reason : Blood Pressure : / mmHG Vent. Rate : 076 BPM Atrial Rate : 340 BPM P-R Int : 000 ms QRS Dur : 092 ms QT Int : 382 ms P-R-T Axes : 000 052 163 degrees QTc Int : 429 ms Atrial flutter with variable A-V block with frequent ventricular-paced complexes Incomplete right bundle branch block Possible Inferior infarct , age undetermined ST & T wave abnormality, consider lateral ischemia Abnormal ECG Confirmed by COLIN ROBERT, JUSTIN ([id number]), news video editor SAMPSON BURGER ([id number]) on 10/13/2020 1:46:23 PM Referred By: KEVIN Confirmed By:JUSTIN SHAW MD
--- NOTE | 2020-10-10 11:04 | ED.VISSUMM ---
- ER Visit Summary Date of Service: 10/10/20 Chief Complaint: Shortness of breath History of Present Illness: The patient is a [address] 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 He is in the process of establishing with Dr. Blunt. He reports that he is chronic shortness of breath is gradually increased over the past year. States that severe when he exerts himself. He is also short of breath when he lays flat. Resolves with rest. He denies any chest pain, pressure, or tightness. No fever or cough. Does report that he has chills and nausea this morning. Patient reports that this is similar to when he has had CHF in the past. He had his Lasix increased from 40 mg a day to 80 mg a day approximately 10 days ago. Despite that he had a 7 pound weight gain in the past 2 weeks. Physical Examination: Vitals: Stable. Afebrile. General: Well-nourished and well-developed. Head: Normocephalic atraumatic. Neck: Supple, no lymphadenopathy. No JVD. Nontender. Cardiovascular: Regular rate and rhythm. 2 out of 6 systolic murmur. Heart sounds distant. Respiratory: No respiratory distress. Clear to auscultation bilaterally. No crackles. Abdominal: Soft, nontender, nondistended, normal bowel sounds. No guarding, rebound, or peritoneal signs. Back: Nontender. Extremities: Nontender, 3+ pitting edema lower extremities bilaterally right greater than left. Skin: Normal color, no rash. Neurologic: Alert and oriented ?3. Cranial nerves II through XII are intact. Normal strength and sensation. Psych: Normal affect. Test Results: EKG shows a demand pacemaker with underlying atrial flutter at a rate of 76. Is unchanged from September 23. CBC shows 7 neutrophils 84 leukocytes 4. Chem-7 shows been a 29, creatinine 1.64, glucose 220, calcium 8.2. Troponin 0 0.022. BNP is 657.1. Clinical Impression(s) from Imaging Studies Chest X-Ray 10/10/20 11:06 IMPRESSION: Cardiomegaly. Stable calcified granulomas. No acute abnormality is seen Electronically Signed: Felipe Beckman MD at 11:18 EDT , Service support , Emergency Department Course and Treatment: Patient had an IV placed. He is resting comfortably. Patient's blood pressures have been in the 90s systolic. His pulse ox was 88% on room air. Treatment Plan: Patient will require admission for hypoxia and balancing diuresis with his blood pressure. He will be discussed with the hospitalist admitted for further evaluation and treatment. Disposition: Admitted in serious condition. Impression: 1. Hypertension. 2. CHF. 3. Coagulopathy on Xarelto. 4. Hypoxia. This note was generated with [employer] software. It may contain incorrect words, spelling, and punctuation that were not noted in review of the chart prior to signing ED Disposition - Plan for ED Patient: Referrals: Prabhu Vee MD [Primary Care Provider] -
--- NOTE | 2020-10-10 11:06 | RAD_ITS ---
STUDY: X-RAY CHEST REASON FOR EXAM: Male, 85 years old. SOB TECHNIQUE: Single AP portable view of the chest. COMPARISON: Comparison is made with prior study of 09/23/2020. FINDINGS: EKG electrodes are seen. The lungs are clear and expanded. Stable calcified granulomas. There is no demonstrated pleural abnormality. Sternal cerclage wires and vascular clips are present from a prior sternotomy and coronary artery bypass graft procedure (CABG). Moderate cardiomegaly. A left-sided dual chamber pacemaker is seen. Normal mediastinum and kaylene. Normal visualized pulmonary arteries. There is atherosclerotic calcification of the aortic arch with tortuosity. Normal visualized thoracic spine. Normal visualized ribs, clavicles, and shoulders. There is no demonstrated abnormality of the visualized soft tissue structures of the upper abdomen. RAD/Chest 1 View (Portable) IMPRESSION: Cardiomegaly. Stable calcified granulomas. No acute abnormality is seen Electronically Signed: Felipe Beckman MD at 11:18 EDT , Service support ,
[2020-10-10 11:13] LABS: Absolute Lymphocyte Count 0.28 X10^3/uL (0.83-4.51); Absolute Neutrophil Count 5.5 X10^3/uL (2.0-7.7); Basophil# 0.05 X10^3/uL; Basophil% 0.8 % (0-1); Eosinophil# 0.06 X10^3/uL; Eosinophils% 0.9 % (0-5); Hematocrit 40.7 % (40-54); Hemoglobin 13.3 g/dL (13.0-16.5); Lymphocyte # 0.28 X10^3/ul (4.0); Lymphocyte % 4.2 % (19-41); Mean Corp Hgb Conc 32.7 g/dL (32-36); Mean Corpuscular Hgb 34.5 pg (27.0-32.0); Mean Corpuscular Volume 105.7 fL (80-94); Mean Platelet Vol. 11.5 fl (6.2-12.0); Monocyte# 0.66 X10^3/uL; NRBC Flagged by Analyzer 0 % (0-5); Neutrophil # 5.53 X10^3/uL (2.7-7.7); Neutrophil % 83.6 % (47-70); POSITIVE COUNT YES; POSITIVE DIFFERENTIAL YES; Platelet Count 52 K/mm3 (150-450); RBC Distribution Width CV 14.9 % (11.6-14.6); RBC Distribution Width SD 57.9 fl (35.1-43.9); Red Blood Count 3.85 M/mm3 (4.6-6.2); White Blood Count 6.6 K/mm3 (4.4-11.0)
[2020-10-10 11:14] LABS: Differential Indicated SCAN CRITERIA MET
[2020-10-10 11:32] LABS: BNP,B-Type NATRIURETIC PEPTIDE 657.1 pg/mL (0-100)
[2020-10-10 11:33] LABS: Anion Gap 6 (5-15); BUN 29 mg/dL (7-18); BUN/Creat Ratio 17.7 RATIO (10-20); Calcium,Total 8.2 mg/dL (8.5-10.1); Chloride 104 mmol/L (98-107); Creatinine, Serum 1.64 mg/dL (0.70-1.30); EST Glomerular Filtration Rate 43 mL/min (>60); Est Glom Filt Rate - Afr Amer 52 mL/min (>60); Estimated Creatinine Clearance 29.72 ml/min; Glucose 228 mg/dL (74-106); Platelet Estimate MKD DEC (ADEQ); Potassium 4.6 mmol/L (3.5-5.1); Sodium Level 139 mmol/L (136-145)
--- NOTE | 2020-10-10 12:39 | ED.RN ---
WENT TO ABMULATE PT WITH ROOM AIR PULSE OX AFTER OXYGEN HAD BEEN TURNED OFF FOR 15 MINUTES, WALKING INTO PT'S ROOM HIS SPO2 WAS 88%. DR. BROWN MADE AWARE, PT'S OXYGEN TURNED BACK ON TO 2 LITERS NASAL CANNULA
--- NOTE | 2020-10-10 13:15 | NURSING ---
ICU CHF, HYPOXIA, HYPOTENSION ESTEPHANIA
--- NOTE | 2020-10-10 13:41 | NURSING ---
ICU 1
--- NOTE | 2020-10-10 14:11 | HP.PCM_ITS ---
Problem List (1) Acute on chronic combined systolic (congestive) and diastolic (congestive) heart failure Status: Chronic (2) Biventricular heart failure Status: Chronic (3) CAD (coronary artery disease) Status: Chronic (4) COVID-19 Status: Resolved (5) Hypoxemia Status: Acute (6) Atrial flutter Status: Chronic (7) S/P CABG (coronary artery bypass graft) Status: Chronic (8) S/P MVR (mitral valve replacement) Status: Chronic (9) ICD (implantable cardioverter-defibrillator) in place Status: Chronic (10) Thrombocytopenia Status: Chronic (11) Leukopenia Status: Chronic (12) Macrocytosis Status: Chronic History of Present Illness Date of Admission: 10/10/20 Chief Complaint: Progressive worsening of shortness of breath for about 6 months The patient is a 85 year old M with history of chronic heart failure, coronary artery status post four-vessel CABG in 2006 and then repeat CABG and bioprosthetic MVR in in , AICD in came to ER for progressive worsening of shortness of breath for 6 months. Shortness of breath got worse for last 2 weeks. Patient has orthopnea and PND. Bilateral lower extremity swelling/edema, abdominal swelling and gain of weight, 7 pound in past 2 weeks. Patient had Lasix increased from 40 mg daily to 80 mg daily about 10 days ago by PCP. Patient has moved his cardiac care from [place] to Dr. Blunt. Patient blood pressure is labile, fluctuating from 77/60- 139/90 probably related to shift of fluid. Denies chest pressure or chest pain, palpitation, diaphoresis, fever, chills. He was recently admitted from 09/23?09/25 for COVID-19 infection for shortness of breath. Rapid antigen and COVID-19 PCR was positive on 09/23 patient was discharged on dexamethasone and self quarantine. Here in the ER rapid COVID-19 PCR repeat is negative Twelve-lead EKG shows atrial flutter with 3-1 conduction, incomplete right bundle branch block, QTC 429 ms. BNP elevated 657. First troponin negative. BUN/creatinine elevated from baseline. No leukocytosis. Chest x-ray initially reviewed shows cardiomegaly with mild hilar mild congestion but officially reported no acute abnormality. 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) Allergies diphenhydramine [From Benadryl] Allergy (Verified 10/10/20 10:46) PT UNSURE OF REACTION ofloxacin [From Floxin] Allergy (Verified 10/10/20 10:46) Other Home Medications: Ambulatory Orders Medication Instructions Recorded Albuterol Inhaler [Ventolin Hfa] 1 - 2 puff INHALATION Q4H PRN PRN 09/22/20 #1 inhaler Carvedilol [Coreg (Beta Latoya)] 12.5 mg PO BID 09/22/20 Enalapril Maleate 20 mg PO DAILY 09/22/20 Finasteride 5 mg PO DAILY 09/22/20 Furosemide [Lasix] 40 mg PO DAILY 09/22/20 Potassium Chloride 10 meq PO DAILY 09/22/20 Cyanocobalamin (Vitamin B-12) 2,000 mcg PO DAILY 09/23/20 [Vitamin B-12] Multivitamin with Minerals 1 tab PO DAILY 09/23/20 [Multiple Vitamin] Orange-3 Fatty Acids/Fish Oil 1 ea PO BID 09/23/20 [Orange 3 1,000 mg Softgel] Rivaroxaban [Xarelto] 15 mg PO DAILY #30 tab 09/25/20 Cholecalciferol (Vitamin D3) 1,000 unit PO DAILY 10/10/20 [Vitamin D3] Super Beta Prostate 1 tablet PO BID 10/10/20 dexAMETHasone [Dexamethasone] 6 mg PO BID 10/10/20 Surgical History: coronary bypass surgery, - - mitral valve replacement Smoking Status: Former smoker Review of Systems Constitutional: Denies: Chills, Fever, Weight Change HEENT: Denies: Head Aches, Sinus Congestion, Sinus Drainage Cardiovascular: Reports: Edema, Orthopnea, Paroxysmal Noc. Dyspnea. Denies: Chest Pain, Chest Pressure, Chest Tightness, Palpitations Respiratory: Reports: Shortness of Breath, Shortness of breath at rest, Shortness of breath upon exertion. Denies: Cough, Sputum production, Wheezing Gastrointestinal: Denies: Abdominal Pain, Hematemesis, Hematochezia, Nausea, Melena, Vomiting Genitourinary: Denies: Dysuria, Frequency Musculoskeletal: Denies: Joint Pain, Joint Tenderness Skin: Denies: Rash, Wounds Neurological: Reports: Balance problems. Denies: Focal weakness, Numbness, Tingling Psychiatric: Denies: Anxiety, Depression, Homicidal Ideations, Suicidal Ideations Hematologic/ Lymphatic: Denies: Easy Bruising, Easy Bleeding VTE Information - Inpt Only VTE Present on Admission: No VTE Mechan Device Prophylaxis: None VTE Pharm Prophylaxis ordered?: Yes Patient Problems: Active and Suspected Problems Hypoxemia (Acute) Objective: General: Alert, Oriented x3, Cooperative HEENT: Atraumatic, PERRLA, EOMI, Normocephalic Oral: No Gingival or Mucosal Lesions/ Ulcerations Neck: Supple, No JVD, Negative Carotid Bruits Lungs: Air entry diminished in bilateral lung bases. crepitations present bilateral lung bases. Mild hypoxia. Cardiovascular: Regular rate, Regular Rhythm, Normal S1, Normal S2, No murmurs Abdomen: Mild ascites bowel Sounds Present, Soft, Non Tender, mild abdominal distention. : No renal angle tenderness. No suprapubic tenderness. Extremities: Bilateral lower extremity edema, Capillary Refill Less than 3 Seconds Skin: No ulcer/erythema. Musculoskeletal: No Tenderness to Palpation of Joints or Extremities Neurological: Cranial nerves II-XII grossly intact, Deep Tendon Reflexes 2+/4 and Symmetrical, Neuro grossly intact Psych/Mental Status: Normal Affect, Appropriate. - Physical Exam Vitals/I&O's: Vital Signs Temp Pulse Resp BP Pulse Ox 98.6 F 76 19 H 139/90 H 96 10/10/20 13:31 10/10/20 13:31 10/10/20 13:31 10/10/20 13:31 10/10/20 13:31 Oxygen Flow Rate (L/min) 2 Oxygen Delivery Method Nasal Cannula Weight: 187 lb 2.759 oz Body Mass Index (BMI) 30.2 Microbiology Past 72 Hours 10/10/20 13:22 Mucosa - Nose SARS-CoV-2 Antigen (Rapid) - Final Laboratory Results 10/10/20 11:00: WBC 6.6, RBC 3.85 L, Hgb 13.3, Hct 40.7, MCV 105.7 H, MCH 34.5 H , MCHC 32.7, RDW Std Deviation 57.9 H, RDW Coeff of Daryl 14.9 H, Plt Count 52 L, MPV 11.5, Immature Gran % (Auto) 0.500, Neut % (Auto) 83.6 H, Lymph % (Auto) 4.2 L, Frederick % (Auto) 10.0, Eos % (Auto) 0.9, Baso % (Auto) 0.8, Absolute Neuts (auto) 5.5, Absolute Lymphs (auto) 0.28 L, Nucleated RBC % 0, Platelet Estimate MKD 10/10/20 11:00: Sodium 139, Potassium 4.6, Chloride 104, Carbon Dioxide 29.0, Anion Gap 6, BUN 29 H, Creatinine 1.64 H, Estim Creat Clear Calc 29.72, Est GFR (MDRD) Af Amer 52 L, Est GFR (MDRD) Non-Af 43 L, BUN/Creatinine Ratio 17.7, Glucose 228 H, Calcium 8.2 L, Troponin I 0.022 10/10/20 11:00: B-Natriuretic Peptide 657.1 H Current Medications Carvedilol (Carvedilol 6.25 Mg Tablet) 6.25 mg PO BID [facility] Cyanocobalamin (Cyanocobalamin 500 Mcg Tablet) 2,000 mcg PO DAILY LUIS Finasteride (Finasteride 5 Mg Tablet) 5 mg PO DAILY [facility] Non-Formulary Medication (Enalapril Maleate) 10 mg PO DAILY [facility] Non-Formulary Medication (Potassium Chloride) 10 meq PO DAILY [facility] Rivaroxaban (Rivaroxaban 15 Mg Tablet) 15 mg PO DAILY [facility] Assessment/Plan All Active Problems Hypoxemia (Acute) COVID-19 (Resolved) The patient is a 85 year old M with history of chronic heart failure, coronary artery status post four-vessel CABG in 2006 and then repeat CABG and bioprosthetic MVR in in , AICD in came to ER for progressive worsening of shortness of breath for 6 months. BNP elevated 657. First troponin negative. BUN/creatinine elevated from baseline. No leukocytosis. Chest x-ray initially reviewed shows cardiomegaly with mild hilar mild congestion but officially reported no acute abnormality. 1. Acute respiratory insufficiency with acute on chronic systolic and diastolic heart failure with ischemic cardiomyopathy, valvular heart disease, biventricular heart failure and severe pulmonary hypertension status post AICD: Patient is being admitted in ICU for labile blood pressure/hypotension. Patient blood pressure drops on bolus IV furosemide therefore Lasix drip ordered. Heart failure core measures including intake and output, fluid restriction less than 1500 mL, daily weight monitoring, kidney and electrolytes monitoring. Serial cardiac enzymes. Business Agent has been consulted from ER. 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 Blunt in September 24. Last echo from [facility] 07/22/2020 reported EF 45%,eft ventricle mildly dilated; left atrium severely dilated; right ventricle severely enlarged and dysfunctional; right atrium severely dilated; mitral valve with a #27 epic porcine mitral valve replacement with no MR; moderate to severe TR; mild TR; mild to moderate AI; mild dilatation of the aortic root; estimated RV systolic pressure of approximately 83 mmHg. Overall it is suggestive of biventricular heart failure and pulmonary hypertension. 2. Coronary artery disease status post four-vessel CABG and then revision CABG and MVR in and is status post bioprosthetic MVR : Patient last cath in April [address] [facility] reported left main coronary artery patent; LAD 50% stenosis; first diagonal branch 99% stenosis; LCx less than 30% stenosis; intermediate ramus 100% stenosis; RCA chronically occluded; COLLINS to the LAD patent; SVG to the intermediate ramus patent; chronic occlusion of an SVG to the diagonal branch and an SVG to the RCA; severe MR status post mitral valve repai r; recommendation for redo CABG and mitral valve replacement in July 01, 2017 SVG to PDA, mitral valve replacement with a 27 mm epic porcine tissue valve; removal of existing mitral annuloplasty ring With his fluctuating/labile blood pressure, Coreg is decreased to 6.25 mg p.o. twice daily, enalapril 10 mg daily. Repeat 2D echo ordered. 3. Chronic A. fib/a flutter on Xarelto patient is on Xarelto for atrial flutter status post AICD. Twelve-lead EKG shows atrial flutter with 3-1 conduction, incomplete right bundle branch block, QTC 429 ms. Heart rate is controlled. . 4. Acute kidney injury on CKD stage IIIb: Patient baseline creatinine runs around 1.46. BUN 22. Admitted BUN/creatinine with 29/1.64. I do not see any wood fence installer has seen before. Will consult wood fence installer for further input. Urine lites and urine osmolality ordered. Kidney function. Other comorbidities include history of macrocytosis, leukopenia and recent history of COVID-19. Living will/advanced directive/end of life care: Patient does not have living will or advanced directive. Patient has a son Mr. Stevan Le is power of litigation attorney associate for health. After discussion of benefits/risks procedures involved with full code, DNR CC arrest and DNR CC, the patient opted for full code with all life support initially but if he goes in irreversible/no chance of recovery want to be DNR CC. Initially he wanted full code. Patient does want artificial life support including intubation, tube feed, ventilator and/chest compression, central venous catheter, vasopressor and DC shock if needed Total time spent in [id number] encounter in discussion of advanced directive 16 minutes. Microbiology Past 72 Hours 10/10/20 13:22 Mucosa - Nose SARS-CoV-2 Antigen (Rapid) - Final Laboratory Results 10/10/20 11:00: WBC 6.6, RBC 3.85 L, Hgb 13.3, Hct 40.7, MCV 105.7 H, MCH 34.5 H , MCHC 32.7, RDW Std Deviation 57.9 H, RDW Coeff of Daryl 14.9 H, Plt Count 52 L, MPV 11.5, Immature Gran % (Auto) 0.500, Neut % (Auto) 83.6 H, Lymph % (Auto) 4.2 L, Frederick % (Auto) 10.0, Eos % (Auto) 0.9, Baso % (Auto) 0.8, Absolute Neuts (auto) 5.5, Absolute Lymphs (auto) 0.28 L, Nucleated RBC % 0, Platelet Estimate MKD 10/10/20 11:00: Sodium 139, Potassium 4.6, Chloride 104, Carbon Dioxide 29.0, Anion Gap 6, BUN 29 H, Creatinine 1.64 H, Estim Creat Clear Calc 29.72, Est GFR (MDRD) Af Amer 52 L, Est GFR (MDRD) Non-Af 43 L, BUN/Creatinine Ratio 17.7, Glucose 228 H, Calcium 8.2 L, Troponin I 0.022 10/10/20 11:00: B-Natriuretic Peptide 657.1 H Clinical Impression(s) from Imaging Studies Chest X-Ray 10/10/20 11:06 IMPRESSION: Cardiomegaly. Stable calcified granulomas. No acute abnormality is seen Inpatient E&M: 92795 Init Hosp L3 Procedures: 85113 Advncd Care Plan 30 Min
--- NOTE | 2020-10-10 14:41 | ECHOD_ITS ---
Version 2 Reason For Study: heart failure Procedure This was a 2D Doppler, Color Flow transthoracic echocardiogram. The study was technically difficult. Due to body habitus. Deferred definity due to increased PAP (unable to evaluate IVC). Exam performed portable in ICU/CCU. Left Ventricle Normal LV size. The estimated ejection fraction is 30 %. Moderately severe segmental systolic dysfunction (see wall motion). Mid-Inferior: Severely Hypokinetic. Infero-Basal: Akinetic. Anterio- Basal: Normal. Mid-Anterior : Normal. The rest of the wall segments are hypokinetic. Right Ventricle Moderately dilated right ventricle. ICD or pacer leads identified within the right ventricle. Mild to moderate global right ventricular systolic dysfunction. Atria The left atrium is moderately enlarged. The right atrium is moderately enlarged. Mitral Valve Stable appearing bioprosthetic mitral valve apparatus. Tricuspid Valve Normal tricuspid valve. Moderate (2+) eccentric tricuspid valve insufficiency. Pulmonary artery systolic pressure is 54 mmHg. Aortic Valve Trisinus/trileaflet aortic valve. Pulmonic Valve Normal pulmonic valve. Great Vessels Normal aortic root. The pulmonary artery is normal size. Normal inferior vena cava. Pericardium/Pleural No pericardial effusion. MMode/2D Measurements & Calculations LVIDd: 5.6 cm IVSd: 1.3 cm Ao root diam: 3.8 cm LVIDs: 4.7 cm LVPWd: 1.1 cm RVDd: 4.9 cm FS: 17.3 % LAV(MOD-sp4): 88.0 ml LA A4 area: 26.3 cm2 LA dimension(2D): 5.3 cm Time Measurements MV dec time: 0.32 sec Doppler Measurements & Calculations MV E max jasmeet: 192.7 cm/sec Lat Peak E' Jasmeet: 8.9 cm/sec Med Peak E' Jasmeet: 6.3 cm/sec MV A max jasmeet: 103.0 cm/sec E/E' lat: 21.6 E/E' med: 30.5 MV E/A: 1.9 MV V2 max: 200.7 cm/sec Ao V2 max: 106.6 cm/sec LV V1 max: 73.2 cm/sec MV max P.2 mmHg Ao max P.5 mmHg LV V1 max P.1 mmHg MV V2 mean: 115.1 cm/sec MV mean P.1 mmHg MV V2 VTI: 49.8 cm PA V2 max: 66.3 cm/sec TR max jasmeet: 341.8 cm/sec TR max P.9 mmHg ECHO/Echo Complete Interpretation Summary Normal LV size. The estimated ejection fraction is 30 %. Moderately severe segmental systolic dysfunction (see wall motion). The right atrium is moderately enlarged. The left atrium is moderately enlarged. Stable appearing bioprosthetic mitral valve apparatus. Ordering Physician: Galdino Christopher Referring Physician: Prabhu Vee Performed By: Eloisa Bui RDCS, RVT
[2020-10-10 15:01] LABS: Magnesium 2.2 mg/dL (1.6-2.6)
[2020-10-10] MEDS: Furosemide 500 MG in Empty Viaflex 50 mL 1 EACH CONT INF (15:24)
[2020-10-10 15:26] LABS: AST(SGOT) 27 U/L (15-37); Alanine Aminotransfer ALT/SGPT 35 U/L (16-61); Alkaline Phosphatase 96 U/L (45-117); Bilirubin, Direct 0.53 mg/dL (0.00-0.30)
[2020-10-10 16:09] LABS: Bacteria 0 SEEN /hpf (None Seen); Mucous, Urine 0 SEEN /hpf (<or=2+); Red Blood Cells-Urine 0 SEEN /hpf (0-5); Squamous Epithelial Cells - UA 0 SEEN /hpf (0-5)
[2020-10-10 16:14] LABS: Color, Urine Yellow (Yellow); Glucose, Dipstick Normal (Normal); Ketone-Dipstick Negative (Negative); Leukocyte Esterase-Dipstick Negative /ul (Negative); Nitrite-Dipstick Negative (Negative); Occult Blood-Urine Negative /ul (Negative); Protein-Dipstick Negative (Negative); Urine Bilirubin Dipstick Negative (Negative); Urine Clarity Clear (Clear); Urine Urobilinogen Normal (Normal)
[2020-10-10 16:23] LABS: Urine Chloride 112 mmol/L (Not Establ.); Urine Sodium 83 mmol/L (Not Establ.)
--- NOTE | 2020-10-10 16:31 | CASEMGMT ---
Social Work SW received referral from ED that pt son Stevan would like to speak with SW. SW placed call to Stevan and introduced self and role of SW. Per Stevan, pt has been living at home alone and able to function independently. Pt lives in the independent living apartments at [facility]. Two sons live local and check in on pt regularly. Pt is able to care for himself and is still driving, although Stevan states pt has been getting weaker and weaker since initial illness and hospitalization on 09/23/20. Pt in December 2019 and pt sold his home and moved to independent living in July 2020. Stevan feels pt would benefit from short term SNF stay prior to returning home alone. SW will followup with pt to discuss SNF placement once pt has been seen by therapy. SWAPNA Navas
[2020-10-10 16:57] LABS: White Blood Cells 0-5 SEEN /hpf (0-5)
[2020-10-10 17:15] LABS: Osmolality, Urine 366 mOsm/KG
[2020-10-10] MEDS: Acetaminophen 325 MG Tablet 650 MG PO (17:40)
[2020-10-10] MEDS: 0.9% Saline Lock 10 ML Syringe IV (17:41)
[2020-10-10] MEDS: Carvedilol 6.25 MG Tablet PO (21:02)
[2020-10-10] MEDS: Sodium Chloride 0.65% 1 SPRAY SPRAY.BTL 2 SPRAY NASAL (21:56)
[2020-10-10] MEDS: Mag Hydrox/Al Hydrox/Simeth 30 ML UDC PO (22:47)
[2020-10-11] VITALS (26 sets, daily range): BP systolic 92–146; BP diastolic 58–82; PULSE 68–86; RESP 12–24; TEMP 36.5–37.2; O2SAT 88–100
[2020-10-11] MEDS: Sodium Chloride 0.65% 1 SPRAY SPRAY.BTL 2 SPRAY NASAL (00:45)
[2020-10-11 04:24] LABS: Absolute Neutrophil Count 3.5 X10^3/uL (2.0-7.7); Basophil# 0.03 X10^3/uL; Basophil% 0.6 % (0-1); Eosinophil# 0.06 X10^3/uL; Eosinophils% 1.3 % (0-5); Hematocrit 40.1 % (40-54); Hemoglobin 12.9 g/dL (13.0-16.5); Lymphocyte % 10.4 % (19-41); Mean Corp Hgb Conc 32.2 g/dL (32-36); Mean Corpuscular Hgb 34.1 pg (27.0-32.0); Mean Corpuscular Volume 106.1 fL (80-94); Mean Platelet Vol. 11.6 fl (6.2-12.0); Monocyte# 0.64 X10^3/uL; Monocyte% 13.4 % (0-10); NRBC Flagged by Analyzer 0 % (0-5); Neutrophil # 3.52 X10^3/uL (2.7-7.7); Neutrophil % 73.5 % (47-70); POSITIVE COUNT YES; POSITIVE DIFFERENTIAL YES; Platelet Count 56 K/mm3 (150-450); RBC Distribution Width CV 14.6 % (11.6-14.6); RBC Distribution Width SD 57.8 fl (35.1-43.9); Red Blood Count 3.78 M/mm3 (4.6-6.2); White Blood Count 4.8 K/mm3 (4.4-11.0)
[2020-10-11 04:25] LABS: Differential Indicated SCAN CRITERIA MET
[2020-10-11 04:41] LABS: Anion Gap 4 (5-15); BUN 28 mg/dL (7-18); BUN/Creat Ratio 19.3 RATIO (10-20); Chloride 104 mmol/L (98-107); Cholesterol 134 mg/dL (200); Creatinine, Serum 1.45 mg/dL (0.70-1.30); EST Glomerular Filtration Rate 49 mL/min (>60); Est Glom Filt Rate - Afr Amer 59 mL/min (>60); Estimated Creatinine Clearance 33.61 ml/min; Glucose 126 mg/dL (74-106); High Density Lipoprotein 48 mg/dL; Potassium 3.5 mmol/L (3.5-5.1); Sodium Level 143 mmol/L (136-145); Triglycerides 93 mg/dL; Very Low Density Lipoprotein 19 mg/dL (5-40)
[2020-10-11 04:43] LABS: Vitamin B12 1278 pg/mL (211-911)
--- NOTE | 2020-10-11 08:02 | PN.RENAL_ITS ---
Patient Problems: Active and Suspected Problems Hypoxemia (Acute) - Physical Exam Vitals/I&O's: Vital Signs Temp Pulse Resp BP Pulse Ox 97.9 F 76 21 H 114/74 98 10/11/20 04:00 10/11/20 07:50 10/11/20 07:00 10/11/20 07:00 10/11/20 07:00 Oxygen Flow Rate (L/min) 2 Oxygen Delivery Method Nasal Cannula Weight: 78.8 kg Body Mass Index (BMI) 28.3 Intake and Output for Last 24 Hours 10/09/20 10/10/20 10/11/20 23:59 23:59 23:59 Intake Total 360 / 360 240 / 240 Output Total 950 / 950 1025 / 1025 Balance -590 / -590 -785 / -785 Microbiology Past 72 Hours 10/10/20 13:22 Mucosa - Nose SARS-CoV-2 Antigen (Rapid) - Final Laboratory Results 10/10/20 11:00: WBC 6.6, RBC 3.85 L, Hgb 13.3, Hct 40.7, MCV 105.7 H, MCH 34.5 H , MCHC 32.7, RDW Std Deviation 57.9 H, RDW Coeff of Daryl 14.9 H, Plt Count 52 L, MPV 11.5, Immature Gran % (Auto) 0.500, Neut % (Auto) 83.6 H, Lymph % (Auto) 4.2 L, Ransom % (Auto) 10.0, Eos % (Auto) 0.9, Baso % (Auto) 0.8, Absolute Neuts (auto) 5.5, Absolute Lymphs (auto) 0.28 L, Nucleated RBC % 0, Platelet Estimate MKD 10/10/20 11:00: Sodium 139, Potassium 4.6, Chloride 104, Carbon Dioxide 29.0, Anion Gap 6, BUN 29 H, Creatinine 1.64 H, Estim Creat Clear Calc 29.72, Est GFR (MDRD) Af Amer 52 L, Est GFR (MDRD) Non-Af 43 L, BUN/Creatinine Ratio 17.7, Glucose 228 H, Calcium 8.2 L, Troponin I 0.022 10/10/20 11:00: B-Natriuretic Peptide 657.1 H 10/10/20 11:00: Total Bilirubin 1.30 H, Direct Bilirubin 0.53 H, AST 27, ALT 35, Alkaline Phosphatase 96, Total Protein 6.0 L, Albumin 3.0 L, Globulin 3.0 10/10/20 11:00: Magnesium 2.2 10/10/20 15:00: Troponin I Cancelled 10/10/20 16:00: Troponin I Cancelled 10/10/20 16:00: Urine Color Yellow, Urine Clarity Clear, Urine pH 7.0, Ur Specific [place] 1.010, Urine Protein Negative, Urine Glucose (UA) Normal, Urine Ketones Negative, Urine Occult Blood Negative, Urine Nitrite Negative, Urine Bilirubin Negative, Urine Urobilinogen Normal, Ur Leukocyte Esterase Negative, Urine RBC 0 SEEN, Urine WBC 0-5 SEEN, Ur Squamous Epith Cells 0 SEEN, Urine Bacteria 0 SEEN, Urine Mucus 0 SEEN 10/10/20 16:00: Urine Osmolality 366, Ur Random Sodium 83, Urine Creatinine 29.60, Urine Potassium 46.0, Urine Chloride 112 10/10/20 18:20: Troponin I 0.029 10/10/20 21:10: Troponin I 0.029 10/11/20 04:15: Vitamin B12 1278 H 10/11/20 04:15: WBC 4.8, RBC 3.78 L, Hgb 12.9 L, Hct 40.1, MCV 106.1 H, MCH 34.1 H, MCHC 32.2, RDW Std Deviation 57.8 H, RDW Coeff of Daryl 14.6, Plt Count 56 L, MPV 11.6, Immature Gran % (Auto) 0.800, Neut % (Auto) 73.5 H, Lymph % (Auto) 1 0.4 L, Ransom % (Auto) 13.4 H, Eos % (Auto) 1.3, Baso % (Auto) 0.6, Absolute Neuts (auto) 3.5, Absolute Lymphs (auto) 0.50 L, Nucleated RBC % 0 10/11/20 04:15: Sodium 143, Potassium 3.5, Chloride 104, Carbon Dioxide 35.0 H, Anion Gap 4 L, BUN 28 H, Creatinine 1.45 H, Estim Creat Clear Calc 33.61, Est GFR (MDRD) Af Amer 59 L, Est GFR (MDRD) Non-Af 49 L, BUN/Creatinine Ratio 19.3, Glucose 126 H, Calcium 8.0 L, Triglycerides 93, Cholesterol 134, LDL Cholesterol 67, VLDL Cholesterol 19, HDL Cholesterol 48 Current Medications Acetaminophen (Acetaminophen 325 Mg Tablet) 650 mg PO Q6H PRN PRN PRN Reason: Pain Score 1-10/Temp > 100.7 F Last Admin: 10/10/20 17:40 Dose: 650 mg Documented by: Al Hydroxide/Mg Hydroxide (Mag Hydrox/Al Hydrox/Simeth 30 Ml Udc) 30 ml PO Q6H PRN PRN PRN Reason: Gastric Burning Last Admin: 10/10/20 22:47 Dose: 30 ml Documented by: Albuterol Sulfate (Albuterol 2.5 Mg/3 Ml Vial.Neb.) 2.5 mg INHALATION Q2H PRN PRN PRN Reason: SOB/Wheezing Carvedilol (Carvedilol 6.25 Mg Tablet) 6.25 mg PO BID [facility] Last Admin: 10/10/20 21:02 Dose: 6.25 mg Documented by: Finasteride (Finasteride 5 Mg Tablet) 5 mg PO DAILY [facility] Furosemide 500 mg/ N/A 50 mls @ 1 mls/hr CONT INF .Q50H [facility] Last Admin: 10/10/20 15:24 Dose: 10 mg/hr, 1 mls/hr Documented by: Lisinopril (Lisinopril 10 Mg Tablet) 10 mg PO DAILY [facility] Morphine Sulfate (Morphine 2 Mg/Ml Syringe) 2 mg IV Q3H PRN PRN PRN Reason: Pain Score 6-10 Nitroglycerin (Nitroglycerin (Inpatient Use) 0.4 Mg Tab.Subl) 0.4 mg SL Q5M PRN PRN Reason: CARDIAC/CHEST PAIN Oxycodone HCl (Oxycodone 5 Mg Tablet) 5 mg PO Q4H PRN PRN PRN Reason: Pain Score 4-5 Potassium Chloride (Potassium Chloride Oral Tablet 10 Meq) [facility] Prochlorperazine Edisylate (Prochlorperazine 10 Mg/2 Ml Vial) 5 mg IV Q4H PRN PRN PRN Reason: Breakthrough Nausea/Vomiting Rivaroxaban (Rivaroxaban 15 Mg Tablet) 15 mg PO DAILY@1700 [facility] Senna/Docusate Sodium (Senna/Docusate Sodium 1 Tablet) 2 tablet PO BID PRN PRN Reason: Constipation Sodium Chloride (0.9% Saline Lock 10 Ml Syringe) 10 - 40 ml IV UD PRN PRN Reason: SALINE FLUSH Last Admin: 10/10/20 17:41 Dose: 30 ml Documented by: Sodium Chloride (Sodium Chloride 0.65% 1 [place] Boston.Btl) 2 spray NASAL TID PRN PRN PRN Reason: NASAL DRYNESS Last Admin: 10/11/20 00:45 Dose: 2 spray Documented by: Medical Necessity - Tobacco Use Smoking Status: Former smoker Tobacco Use: Cigarettes Assessment/Plan All Active Problems Hypoxemia (Acute) COVID-19 (Resolved)
[2020-10-11] MEDS: Finasteride 5 MG Tablet PO (08:19)
[2020-10-11] MEDS: Lisinopril 10 MG Tablet PO (08:20)
[2020-10-11] MEDS: Carvedilol 6.25 MG Tablet PO ×2 (08:20→20:45)
[2020-10-11] MEDS: Potassium Chloride Oral Tablet 10 MEQ PO (08:20)
--- NOTE | 2020-10-11 08:20 | PCM.PN.BLA ---
Progress Note Nephrology Breif Note. The pt is a 85-year-old man admitted for acute hypoxic respiratory failure likely due to decompensated HF. He is also found to have WILTON on CKD. Suspect WILTON is due to cardiorenal syndrome. Renal function is better today with diuresis. Will get pt established in our CKD clinic in [place]. Complete nephrology consult note to follow. Benitez Velázquez MD STROKE Vital Signs/Narrative: Vital Signs Pulse Resp BP Pulse Ox 10/11/20 08:00 74 21 H 124/71 H 99 10/11/20 07:50 76 10/11/20 07:00 76 21 H 114/74 98 10/11/20 06:00 76 23 H 104/68 98 10/11/20 05:00 75 22 H 106/69 97
[2020-10-11] MEDS: 0.9% Saline Lock 10 ML Syringe IV ×4 (08:35→20:45)
--- NOTE | 2020-10-11 09:30 | PN_ITS ---
Patient Problems: Active and Suspected Problems Hypoxemia (Acute) Subjective: Breathing better, and feeling little bit better today. He is down about 1.7 L Vitals/I&O's: Vital Signs Temp Pulse Resp BP Pulse Ox 97.9 F 76 15 124/71 H 90 10/11/20 08:20 10/11/20 08:20 10/11/20 08:20 10/11/20 08:20 10/11/20 09:04 Oxygen Flow Rate (L/min) 2 Oxygen Delivery Method Nasal Cannula Weight: 173 lb 11.588 oz Body Mass Index (BMI) 28.3 Intake and Output for Last 24 Hours 10/09/20 10/10/20 10/11/20 23:59 23:59 23:59 Intake Total 360 / 360 257.25 / 257.25 Output Total 950 / 950 1425 / 1425 Balance -590 / -590 -1167.75 / -1167.75 General: Alert, Oriented x3, Cooperative, No apparent distress HEENT: Atraumatic, PERRLA, EOMI, Normocephalic Oral: Moist Mucosa Neck: Supple, No JVD Lungs: Clear to auscultation, Normal air movement, No rhonchi, No wheeze, No rales, Diminished Cardiovascular: Regular rate, Regular Rhythm, Normal S1, Normal S2, No murmurs Abdomen: Soft, Non Tender, Non-Distended, No Hepato-splenomegaly Extremities: Capillary Refill Less than 3 Seconds, Edema - 1-2+ pitting edema bilaterally Skin: No rashes, No breakdown Neurological: Neuro grossly intact, Sensory exam intact to light touch and pain Psych/Mental Status: Normal Affect, Appropriate Microbiology Past 72 Hours 10/10/20 13:22 Mucosa - Nose SARS-CoV-2 Antigen (Rapid) - Final Laboratory Results 10/10/20 11:00: WBC 6.6, RBC 3.85 L, Hgb 13.3, Hct 40.7, MCV 105.7 H, MCH 34.5 H , MCHC 32.7, RDW Std Deviation 57.9 H, RDW Coeff of Daryl 14.9 H, Plt Count 52 L, MPV 11.5, Immature Gran % (Auto) 0.500, Neut % (Auto) 83.6 H, Lymph % (Auto) 4.2 L, [place] % (Auto) 10.0, Eos % (Auto) 0.9, Baso % (Auto) 0.8, Absolute Neuts (auto) 5.5, Absolute Lymphs (auto) 0.28 L, Nucleated RBC % 0, Platelet Estimate MKD DEC 10/10/20 11:00: Sodium 139, Potassium 4.6, Chloride 104, Carbon Dioxide 29.0, Anion Gap 6, BUN 29 H, Creatinine 1.64 H, Estim Creat Clear Calc 29.72, Est GFR (MDRD) Af Amer 52 L, Est GFR (MDRD) Non-Af 43 L, BUN/Creatinine Ratio 17.7, Glucose 228 H, Calcium 8.2 L, Troponin I 0.022 10/10/20 11:00: B-Natriuretic Peptide 657.1 H 10/10/20 11:00: Total Bilirubin 1.30 H, Direct Bilirubin 0.53 H, AST 27, ALT 35, Alkaline Phosphatase 96, Total Protein 6.0 L, Albumin 3.0 L, Globulin 3.0 10/10/20 11:00: Magnesium 2.2 10/10/20 15:00: Troponin I Cancelled 10/10/20 16:00: Troponin I Cancelled 10/10/20 16:00: Urine Color Yellow, Urine Clarity Clear, Urine pH 7.0, Ur Specific [place] 1.010, Urine Protein Negative, Urine Glucose (UA) Normal, Urine Ketones Negative, Urine Occult Blood Negative, Urine Nitrite Negative, Urine Bilirubin Negative, Urine Urobilinogen Normal, Ur Leukocyte Esterase Negative, Urine RBC 0 SEEN, Urine WBC 0-5 SEEN, Ur Squamous Epith Cells 0 SEEN, Urine Bacteria 0 SEEN, Urine Mucus 0 SEEN 10/10/20 16:00: Urine Osmolality 366, Ur Random Sodium 83, Urine Creatinine 29.60, Urine Potassium 46.0, Urine Chloride 112 10/10/20 18:20: Troponin I 0.029 10/10/20 21:10: Troponin I 0.029 10/11/20 04:15: Vitamin B12 1278 H 10/11/20 04:15: WBC 4.8, RBC 3.78 L, Hgb 12.9 L, Hct 40.1, MCV 106.1 H, MCH 34.1 H, MCHC 32.2, RDW Std Deviation 57.8 H, RDW Coeff of Daryl 14.6, Plt Count 56 L, MPV 11.6, Immature Gran % (Auto) 0.800, Neut % (Auto) 73.5 H, Lymph % (Auto) 10.4 L, [place] % (Auto) 13.4 H, Eos % (Auto) 1.3, Baso % (Auto) 0.6, Absolute Neuts (auto) 3.5, Absolute Lymphs (auto) 0.50 L, Nucleated RBC % 0 10/11/20 04:15: Sodium 143, Potassium 3.5, Chloride 104, Carbon Dioxide 35.0 H, Anion Gap 4 L, BUN 28 H, Creatinine 1.45 H, Estim Creat Clear Calc 33.61, Est GFR (MDRD) Af Amer 59 L, Est GFR (MDRD) Non-Af 49 L, BUN/Creatinine Ratio 19.3, Glucose 126 H, Calcium 8.0 L, Triglycerides 93, Cholesterol 134, LDL Cholesterol 67, VLDL Cholesterol 19, HDL Cholesterol 48 Current Medications Acetaminophen (Acetaminophen 325 Mg Tablet) 650 mg PO Q6H PRN PRN PRN Reason: Pain Score 1-10/Temp > 100.7 F Last Admin: 10/10/20 17:40 Dose: 650 mg Documented by: Al Hydroxide/Mg Hydroxide (Mag Hydrox/Al Hydrox/Simeth 30 Ml Udc) 30 ml PO Q6H PRN PRN PRN Reason: Gastric Burning Last Admin: 10/10/20 22:47 Dose: 30 ml Documented by: Albuterol Sulfate (Albuterol 2.5 Mg/3 Ml Vial.Neb.) 2.5 mg INHALATION Q2H PRN PRN PRN Reason: SOB/Wheezing Carvedilol (Carvedilol 6.25 Mg Tablet) 6.25 mg PO BID [facility] Last Admin: 10/11/20 08:20 Dose: 6.25 mg Documented by: Finasteride (Finasteride 5 Mg Tablet) 5 mg PO DAILY [facility] Last Admin: 10/11/20 08:19 Dose: 5 mg Documented by: Furosemide (Furosemide 40 Mg/4 Ml Vial) 40 mg IV BID@1000,1800 [facility] Stop: 10/11/20 18:01 Lisinopril (Lisinopril 10 Mg Tablet) 10 mg PO DAILY [facility] Last Admin: 10/11/20 08:20 Dose: 10 mg Documented by: Morphine Sulfate (Morphine 2 Mg/Ml Syringe) 2 mg IV Q3H PRN PRN PRN Reason: Pain Score 6-10 Nitroglycerin (Nitroglycerin (Inpatient Use) 0.4 Mg Tab.Subl) 0.4 mg SL Q5M PRN PRN Reason: CARDIAC/CHEST PAIN Oxycodone HCl (Oxycodone 5 Mg Tablet) 5 mg PO Q4H PRN PRN PRN Reason: Pain Score 4-5 Potassium Chloride (Potassium Chloride Oral Tablet 10 Meq) 10 meq PO DAILYCM [facility] Last Admin: 10/11/20 08:20 Dose: 10 meq Documented by: Prochlorperazine Edisylate (Prochlorperazine 10 Mg/2 Ml Vial) 5 mg IV Q4H PRN PRN PRN Reason: Breakthrough Nausea/Vomiting Rivaroxaban (Rivaroxaban 15 Mg Tablet) 15 mg PO DAILY@1700 [facility] Senna/Docusate Sodium (Senna/Docusate Sodium 1 Tablet) 2 tablet PO BID PRN PRN Reason: Constipation Sodium Chloride (0.9% Saline Lock 10 Ml Syringe) 10 - 40 ml IV UD PRN PRN Reason: SALINE FLUSH Last Admin: 10/11/20 08:35 Dose: 10 ml Documented by: Sodium Chloride (Sodium Chloride 0.65% 1 Bailey Bailey.Btl) 2 spray NASAL TID PRN PRN PRN Reason: NASAL DRYNESS Last Admin: 10/11/20 00:45 Dose: 2 spray Documented by: STROKE Vital Signs/Narrative: Vital Signs Temp Pulse Resp BP BP Pulse Ox 10/11/20 09:04 90 10/11/20 09:03 88 10/11/20 08:40 96 10/11/20 08:20 97.9 F 76 15 124/71 H 99 10/11/20 08:00 74 21 H 124/71 H 99 10/11/20 07:50 76 10/11/20 07:00 76 21 H 114/74 98 10/11/20 06:00 76 23 H 104/68 98 Medical Necessity - Tobacco Use Smoking Status: Former smoker Tobacco Use: Cigarettes Assessment/Plan All Active Problems Hypoxemia (Acute) COVID-19 (Resolved) 1. Acute respiratory insufficiency secondary to acute on chronic systolic and diastolic CHF/severe pulmonary hypertension/status post AICD placement/CAD status post CABG and MVR/chronic A. fib flutter -Please on Lasix drip and is doing much better, renal function is about baseline -Can stop the Lasix drip and transition him to bolus Lasix 40 twice daily -Echo with an EF of 30% -Continue with his home Coreg, KEVIN inhibitor, Xarelto 2. CKD 3a -No WILTON on admission, will continue to monitor. Creatinine baseline is around 1.4-1.6 DVT: Xarelto Inpatient E&M: 49227 Subs Hosp L2
[2020-10-11] MEDS: Furosemide 40 MG/4 ML Vial IV ×2 (10:05→17:57)
--- NOTE | 2020-10-11 11:42 | NURSING ---
report called to JOSEPHINE Lima on PCU for transfer.
--- NOTE | 2020-10-11 11:44 | NURSING ---
updated patients son, Stevan on POC. added him as primary visitor.
[2020-10-11] MEDS: Acetaminophen 325 MG Tablet 650 MG PO (12:05)
--- NOTE | 2020-10-11 14:58 | CASEMGMT ---
SOCIAL WORK Met with patient in room to discuss discharge planning. Patient lives in independent living town home at [facility]. Patient states feeling better today. Discussed discharge plan. Patient plans to return home and states if needed would be open to rehab through [facility]. SW/CM to follow up Tuesday. Plan: Home health VS SNF [facility]. CADY Denson, RIGHT OF WAY AGENT
[2020-10-11] MEDS: Rivaroxaban 15 MG Tablet PO (17:55)
--- NOTE | 2020-10-11 19:29 | CON.PCM_ITS ---
Consultation - Renal 10/11/20 PCP/ Referring MD: Requesting physician: Dr. Christopher Primary care physician: Dr. Prabhu Vee MD Reason for Consultation:: Chronic kidney disease in the setting of decompensated heart fail - History of Present Illness History of Present Illness: The patient is a 85-year-old man with past history significant for coronary artery disease status post CABG, MVR, and AICD placement. The patient also has a history of chronic kidney disease which has been followed by a speeder hand in [place] until recently. The patient has moved to [facility], and he has been in the process of switching his medical care to physicians in [facility]. The patient was admitted to this hospital from 09/23/2020 until 09/25/2020 for Covid 19 infection. The patient never needed mechanical ventilation, and he has tested negative for Covid for the current admission. The patient presents to the hospital with increasing dyspnea, orthopnea and PND for the past 2 weeks. The patient has baseline dyspnea prior to that as well although he does not use home oxygen. Patient also complains of increasing lower extremity edema, abdominal swelling and weight gain of around 7 pounds in the past 2 weeks. Despite a recent increase in Lasix dose at home, he has not felt better. The patient presented to the emergency department at this hospital yesterday. The patient was found to be in decompensated heart failure and is admitted for IV diuretic. During the last hospital admission for COVID-19 infection, the serum creatinine was around 1.5 to 1.7 mg/dL. Patient denies current chest pain, nausea, vomiting, or diarrhea. His dyspnea has improved though he remains on supplemental nasal cannula oxygen. Patient has significant edema of the lower extremities which has also subjectively improved. He denies lower urinary tract symptoms. There has been no gross hematuria, dysuria, fever or chills. Echocardiogram done on 10/10/2020 showed ejection fraction of 30%. - Allergies Allergies: Allergies ofloxacin [From Floxin] Allergy (Verified 10/10/20 14:39) migraine diphenhydramine [From Benadryl] Adverse Reaction (Verified 10/10/20 14:39) shuts off my urine - Current Medications Current Medications: Current Medications Acetaminophen (Acetaminophen 325 Mg Tablet) 650 mg PO Q6H PRN PRN PRN Reason: Pain Score 1-10/Temp > 100.7 F Last Admin: 10/11/20 12:05 Dose: 650 mg Documented by: Al Hydroxide/Mg Hydroxide (Mag Hydrox/Al Hydrox/Simeth 30 Ml Udc) 30 ml PO Q6H PRN PRN PRN Reason: Gastric Burning Last Admin: 10/10/20 22:47 Dose: 30 ml Documented by: Albuterol Sulfate (Albuterol 2.5 Mg/3 Ml Vial.Neb.) 2.5 mg INHALATION Q2H PRN PRN PRN Reason: SOB/Wheezing Carvedilol (Carvedilol 6.25 Mg Tablet) 6.25 mg PO BID [facility] Last Admin: 10/11/20 08:20 Dose: 6.25 mg Documented by: Finasteride (Finasteride 5 Mg Tablet) 5 mg PO DAILY [facility] Last Admin: 10/11/20 08:19 Dose: 5 mg Documented by: Lisinopril (Lisinopril 10 Mg Tablet) 10 mg PO DAILY [facility] Last Admin: 10/11/20 08:20 Dose: 10 mg Documented by: Morphine Sulfate (Morphine 2 Mg/Ml Syringe) 2 mg IV Q3H PRN PRN PRN Reason: Pain Score 6-10 Nitroglycerin (Nitroglycerin (Inpatient Use) 0.4 Mg Tab.Subl) 0.4 mg SL Q5M PRN PRN Reason: CARDIAC/CHEST PAIN Oxycodone HCl (Oxycodone 5 Mg Tablet) 5 mg PO Q4H PRN PRN PRN Reason: Pain Score 4-5 Potassium Chloride (Potassium Chloride Oral Tablet 10 Meq) [facility] Last Admin: 10/11/20 08:20 Dose: 10 meq Documented by: Prochlorperazine Edisylate (Prochlorperazine 10 Mg/2 Ml Vial) 5 mg IV Q4H PRN PRN PRN Reason: Breakthrough Nausea/Vomiting Rivaroxaban (Rivaroxaban 15 Mg Tablet) 15 mg PO DAILY@1700 [facility] Last Admin: 10/11/20 17:55 Dose: 15 mg Documented by: Senna/Docusate Sodium (Senna/Docusate Sodium 1 Tablet) 2 tablet PO BID PRN PRN Reason: Constipation Sodium Chloride (0.9% Saline Lock 10 Ml Syringe) 10 - 40 ml IV UD PRN PRN Reason: SALINE FLUSH Last Admin: 10/11/20 18:00 Dose: 10 ml Documented by: Sodium Chloride (Sodium Chloride 0.65% 1 Beckley Beckley.Btl) 2 spray NASAL TID PRN PRN PRN Reason: NASAL DRYNESS Last Admin: 10/11/20 00:45 Dose: 2 spray Documented by: - 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) - Past Surgical History Surgical History: coronary bypass surgery, - - mitral valve replacement - Social History Smoking Status: Former smoker Review of Systems Constitutional: Reports: Malaise, Weakness. Denies: Anorexia, Chills, Fever Eyes: Denies: Blurred vision, Cataracts, Pain, Redness HEENT: Denies: Head Aches, Sinus Congestion, Sinus Drainage Cardiovascular: Reports: Edema, Orthopnea, Paroxysmal Noc. Dyspnea. Denies: Chest Pain, Chest Pressure Respiratory: Reports: Shortness of Breath, Shortness of breath at rest, Shortness of breath upon exertion. Denies: Cough, Pleuritic Pain, Sputum production, Wheezing Gastrointestinal: Denies: Abdominal Pain, Nausea, Vomiting Genitourinary: Denies: Dysuria, Frequency, Hematuria, Hesitancy, Incontinence, Nocturia, Retention, Urgency Musculoskeletal: Denies: Joint Pain, Joint Tenderness Skin: Denies: Rash, Wounds Neurological: Denies: Numbness, Tingling, Focal weakness Psychiatric: Denies: Anxiety, Depression, Homicidal Ideations, Suicidal Ideations Hematologic/ Lymphatic: Denies: Easy Bruising, Easy Bleeding Patient Problems: Active and Suspected Problems Hypoxemia (Acute) - Physical Exam Vitals/I&O's: Vital Signs Temp Pulse Resp BP Pulse Ox 98.3 F 75 16 146/82 H 98 10/11/20 16:43 10/11/20 16:43 10/11/20 16:43 10/11/20 16:43 10/11/20 16:43 Oxygen Flow Rate (L/min) 2 Oxygen Delivery Method Nasal Cannula Weight: 78.8 kg Body Mass Index (BMI) 28.3 Intake and Output for Last 24 Hours 10/09/20 10/10/20 10/11/20 23:59 23:59 23:59 Intake Total 360 / 360 1357.25 / 1357.25 Output Total 950 / 950 2425 / 2425 Balance -590 / -590 -1067.75 / -1067.75 General: Alert, Oriented x3, Cooperative, No apparent distress HEENT: Atraumatic, PERRLA, EOMI, Normocephalic Oral: Moist Mucosa Neck: Supple Lungs: Diminished, - - Decreased breath sound at bases bilaterally Cardiovascular: Normal S1, Normal S2, No murmurs Abdomen: Bowel Sounds Present, Soft, Non Tender, Non-Distended Extremities: Edema - 2+ bilaterally Skin: No rashes, No breakdown Musculoskeletal: No Tenderness to Palpation of Joints or Extremities Neurological: Cranial nerves II-XII grossly intact, Deep Tendon Reflexes 2+/4 and Symmetrical, Neuro grossly intact Psych/Mental Status: Normal Affect Microbiology Past 72 Hours 10/10/20 13:22 Mucosa - Nose SARS-CoV-2 Antigen (Rapid) - Final Laboratory Results 10/10/20 21:10: Troponin I 0.029 10/11/20 04:15: Vitamin B12 1278 H 10/11/20 04:15: WBC 4.8, RBC 3.78 L, Hgb 12.9 L, Hct 40.1, MCV 106.1 H, MCH 34.1 H, MCHC 32.2, RDW Std Deviation 57.8 H, RDW Coeff of Daryl 14.6, Plt Count 56 L, MPV 11.6, Immature Gran % (Auto) 0.800, Neut % (Auto) 73.5 H, Lymph % (Auto) 10.4 L, [place] % (Auto) 13.4 H, Eos % (Auto) 1.3, Baso % (Auto) 0.6, Absolute Neuts (auto) 3.5, Absolute Lymphs (auto) 0.50 L, Nucleated RBC % 0 10/11/20 04:15: Sodium 143, Potassium 3.5, Chloride 104, Carbon Dioxide 35.0 H, Anion Gap 4 L, BUN 28 H, Creatinine 1.45 H, Estim Creat Clear Calc 33.61, Est GFR (MDRD) Af Amer 59 L, Est GFR (MDRD) Non-Af 49 L, BUN/Creatinine Ratio 19.3, Glucose 126 H, Calcium 8.0 L, Triglycerides 93, Cholesterol 134, LDL Cholesterol 67, VLDL Cholesterol 19, HDL Cholesterol 48 Current Medications Acetaminophen (Acetaminophen 325 Mg Tablet) 650 mg PO Q6H PRN PRN PRN Reason: Pain Score 1-10/Temp > 100.7 F Last Admin: 10/11/20 12:05 Dose: 650 mg Documented by: Al Hydroxide/Mg Hydroxide (Mag Hydrox/Al Hydrox/Simeth 30 Ml Udc) 30 ml PO Q6H PRN PRN PRN Reason: Gastric Burning Last Admin: 10/10/20 22:47 Dose: 30 ml Documented by: Albuterol Sulfate (Albuterol 2.5 Mg/3 Ml Vial.Neb.) 2.5 mg INHALATION Q2H PRN PRN PRN Reason: SOB/Wheezing Carvedilol (Carvedilol 6.25 Mg Tablet) 6.25 mg PO BID [facility] Last Admin: 10/11/20 08:20 Dose: 6.25 mg Documented by: Finasteride (Finasteride 5 Mg Tablet) 5 mg PO DAILY [facility] Last Admin: 10/11/20 08:19 Dose: 5 mg Documented by: Lisinopril (Lisinopril 10 Mg Tablet) 10 mg PO DAILY [facility] Last Admin: 10/11/20 08:20 Dose: 10 mg Documented by: Morphine Sulfate (Morphine 2 Mg/Ml Syringe) 2 mg IV Q3H PRN PRN PRN Reason: Pain Score 6-10 Nitroglycerin (Nitroglycerin (Inpatient Use) 0.4 Mg Tab.Subl) 0.4 mg SL Q5M PRN PRN Reason: CARDIAC/CHEST PAIN Oxycodone HCl (Oxycodone 5 Mg Tablet) 5 mg PO Q4H PRN PRN PRN Reason: Pain Score 4-5 Potassium Chloride (Potassium Chloride Oral Tablet 10 [facility]eq) [facility] Last Admin: 10/11/20 08:20 Dose: 10 meq Documented by: Prochlorperazine Edisylate (Prochlorperazine 10 Mg/2 Ml Vial) 5 mg IV Q4H PRN PRN PRN Reason: Breakthrough Nausea/Vomiting Rivaroxaban (Rivaroxaban 15 Mg Tablet) 15 mg PO DAILY@1700 [facility] Last Admin: 10/11/20 17:55 Dose: 15 mg Documented by: Senna/Docusate Sodium (Senna/Docusate Sodium 1 Tablet) 2 tablet PO BID PRN PRN Reason: Constipation Sodium Chloride (0.9% Saline Lock 10 Ml Syringe) 10 - 40 ml IV UD PRN PRN Reason: SALINE FLUSH Last Admin: 10/11/20 18:00 Dose: 10 ml Documented by: Sodium Chloride (Sodium Chloride 0.65% 1 Beckley Beckley.Btl) 2 spray NASAL TID PRN PRN PRN Reason: NASAL DRYNESS Last Admin: 10/11/20 00:45 Dose: 2 spray Documented by: Assessment/Plan All Active Problems Hypoxemia (Acute) COVID-19 (Resolved) 1. Chronic kidney disease stage IIIb. Estimated GFR is around 43 mL/min. I suspect that the patient has nephrosclerosis given the lack of proteinuria on urinalysis. He has seen speeder hand in [place] before, so the patient likely has been worked up for other causes of CKD. Therefore, I do not think that we need to repeat too many tests at the moment. We will try to get records from his prior speeder hand. Thus far, renal function has remained stable despite diuresis. We will continue to monitor his renal function, electrolytes, and acid/base status while the patient is being diuresed. Once the patient is well enough to be discharged, I will arrange for follow-up in our [place] office. The patient desires consolidate his medical care in [facility]. 2. Decompensated heart failure. The patient has heart failure with reduced ejection fraction. EF is 30% based on the most recent echocardiogram. I agree with the current effort to diurese the patient with IV furosemide. The patient is already on beta-jo and KEVIN inhibitor. Mentioned above, we will monitor renal function closely while the patient is being diuresed with IV loop diuretic. 3. Hypokalemia. The patient is on potassium chloride since he is on IV loop diuretic. Continue to monitor potassium and magnesium levels. 4. Anemia and thrombocytopenia. The patient is mildly anemic. There is no need for SAULO from the nephrology standpoint. Patient also has chronic thrombocytopenia. However, his platelet level has always been above 50 K. There is no bleeding diathesis. Continue to monitor CBC.
[2020-10-12] VITALS (14 sets, daily range): BP systolic 114–133; BP diastolic 65–81; PULSE 75–96; RESP 18–20; TEMP 36.6–37.2; O2SAT 92–97
[2020-10-12] MEDS: Sodium Chloride 0.65% 1 SPRAY SPRAY.BTL 2 SPRAY NASAL ×2 (01:14→20:47)
[2020-10-12] MEDS: Acetaminophen 325 MG Tablet 650 MG PO (01:14)
[2020-10-12 05:51] LABS: Absolute Lymphocyte Count 0.83 X10^3/uL (0.83-4.51); Absolute Neutrophil Count 3.1 X10^3/uL (2.0-7.7); Basophil# 0.04 X10^3/uL; Basophil% 0.8 % (0-1); Eosinophil# 0.13 X10^3/uL; Eosinophils% 2.7 % (0-5); Hematocrit 39.6 % (40-54); Hemoglobin 12.7 g/dL (13.0-16.5); Lymphocyte # 0.83 X10^3/ul (4.0); Lymphocyte % 17.1 % (19-41); Mean Corp Hgb Conc 32.1 g/dL (32-36); Mean Corpuscular Hgb 34.3 pg (27.0-32.0); Mean Platelet Vol. 12.1 fl (6.2-12.0); Monocyte# 0.79 X10^3/uL; Monocyte% 16.3 % (0-10); NRBC Flagged by Analyzer 0 % (0-5); Neutrophil # 3.06 X10^3/uL (2.7-7.7); Neutrophil % 62.9 % (47-70); POSITIVE COUNT YES; RBC Distribution Width CV 14.6 % (11.6-14.6); RBC Distribution Width SD 57.5 fl (35.1-43.9); White Blood Count 4.9 K/mm3 (4.4-11.0)
[2020-10-12 06:08] LABS: Differential Indicated SCAN CRITERIA MET; Platelet Count 50 K/mm3 (150-450)
[2020-10-12 06:18] LABS: Anion Gap 4 (5-15); BUN 38 mg/dL (7-18); BUN/Creat Ratio 23.5 RATIO (10-20); Calcium,Total 7.8 mg/dL (8.5-10.1); Chloride 104 mmol/L (98-107); Creatinine, Serum 1.62 mg/dL (0.70-1.30); EST Glomerular Filtration Rate 43 mL/min (>60); Est Glom Filt Rate - Afr Amer 52 mL/min (>60); Estimated Creatinine Clearance 30.08 ml/min; Glucose 102 mg/dL (74-106); Magnesium 2.6 mg/dL (1.6-2.6); Potassium 3.4 mmol/L (3.5-5.1); Sodium Level 141 mmol/L (136-145)
[2020-10-12 06:51] LABS: Anisocytosis 2+; Differential Comment SCANNED; Macrocytosis 2+; Platelet Estimate MKD DEC (ADEQ)
[2020-10-12] MEDS: Potassium Chloride Oral Tablet 10 MEQ PO (08:05)
[2020-10-12] MEDS: Finasteride 5 MG Tablet PO (08:05)
[2020-10-12] MEDS: Carvedilol 6.25 MG Tablet PO ×2 (08:05→21:22)
[2020-10-12] MEDS: Lisinopril 10 MG Tablet PO (08:06)
--- NOTE | 2020-10-12 10:34 | PN_ITS ---
Patient Problems: Active and Suspected Problems Hypoxemia (Acute) Subjective: Doing better, no issues overnight. Feels like he is breathing better than when he came in. Vitals/I&O's: Vital Signs Temp Pulse Resp BP Pulse Ox 97.9 F 90 18 119/75 94 10/12/20 07:55 10/12/20 07:55 10/12/20 07:55 10/12/20 07:55 10/12/20 07:55 Oxygen Flow Rate (L/min) 1 Oxygen Delivery Method Nasal Cannula Weight: 171 lb 4.787 oz Body Mass Index (BMI) 28.3 Intake and Output for Last 24 Hours 10/10/20 10/11/20 10/12/20 23:59 23:59 23:59 Intake Total 360 / 360 1357.25 / 1357.25 50 / 50 Output Total 950 / 950 3500 / 3500 300 / 300 Balance -590 / -590 -2142.75 / -2142.75 -250 / -250 General: Alert, Oriented x3, Cooperative, No apparent distress HEENT: Atraumatic, PERRLA, EOMI, Normocephalic Oral: Moist Mucosa Neck: Supple, No JVD Lungs: Clear to auscultation, Normal air movement, No rhonchi, No wheeze, No rales, Diminished Cardiovascular: Regular rate, Regular Rhythm, Normal S1, Normal S2, No murmurs Abdomen: Soft, Non Tender, Non-Distended, No Hepato-splenomegaly Extremities: Capillary Refill Less than 3 Seconds, Edema - 1-2+ pitting edema bilaterally Skin: No rashes, No breakdown Neurological: Neuro grossly intact, Sensory exam intact to light touch and pain Psych/Mental Status: Normal Affect, Appropriate Microbiology Past 72 Hours 10/10/20 13:22 Mucosa - Nose SARS-CoV-2 Antigen (Rapid) - Final Laboratory Results 10/12/20 04:30: WBC 4.9, RBC 3.70 L, Hgb 12.7 L, Hct 39.6 L, MCV 107.0 H, MCH 34.3 H, MCHC 32.1, RDW Std Deviation 57.5 H, RDW Coeff of Daryl 14.6, Plt Count 50 L*, MPV 12.1 H, Immature Gran % (Auto) 0.200, Neut % (Auto) 62.9, Lymph % (Auto) 17.1 L, [place] % (Auto) 16.3 H, Eos % (Auto) 2.7, Baso % (Auto) 0.8, Absolute Neuts (auto) 3.1, Absolute Lymphs (auto) 0.83, Nucleated RBC % 0, Differential Comment SCANNED, Diff Path Review May foll, Platelet Estimate MKD DEC, Anisocytosis 2+, Macrocytosis 2+ 10/12/20 04:30: Sodium 141, Potassium 3.4 L, Chloride 104, Carbon Dioxide 33.0 H , Anion Gap 4 L, BUN 38 H, Creatinine 1.62 H, Estim Creat Clear Calc 30.08, Est GFR (MDRD) Af Amer 52 L, Est GFR (MDRD) Non-Af 43 L, BUN/Creatinine Ratio 23.5 H , Glucose 102, Calcium 7.8 L, Magnesium 2.6 Current Medications Acetaminophen (Acetaminophen 325 Mg Tablet) 650 mg PO Q6H PRN PRN PRN Reason: Pain Score 1-10/Temp > 100.7 F Last Admin: 10/12/20 01:14 Dose: 650 mg Documented by: Al Hydroxide/Mg Hydroxide (Mag Hydrox/Al Hydrox/Simeth 30 Ml Udc) 30 ml PO Q6H PRN PRN PRN Reason: Gastric Burning Last Admin: 10/10/20 22:47 Dose: 30 ml Documented by: Albuterol Sulfate (Albuterol 2.5 Mg/3 Ml Vial.Neb.) 2.5 mg INHALATION Q2H PRN PRN PRN Reason: SOB/Wheezing Carvedilol (Carvedilol 6.25 Mg Tablet) 6.25 mg PO BID [facility] Last Admin: 10/12/20 08:05 Dose: 6.25 mg Documented by: Finasteride (Finasteride 5 Mg Tablet) 5 mg PO DAILY [facility] Last Admin: 10/12/20 08:05 Dose: 5 mg Documented by: Lisinopril (Lisinopril 10 Mg Tablet) 10 mg PO DAILY [facility] Last Admin: 10/12/20 08:06 Dose: 10 mg Documented by: Morphine Sulfate (Morphine 2 Mg/Ml Syringe) 2 mg IV Q3H PRN PRN PRN Reason: Pain Score 6-10 Nitroglycerin (Nitroglycerin (Inpatient Use) 0.4 Mg Tab.Subl) 0.4 mg SL Q5M PRN PRN Reason: CARDIAC/CHEST PAIN Oxycodone HCl (Oxycodone 5 Mg Tablet) 5 mg PO Q4H PRN PRN PRN Reason: Pain Score 4-5 Potassium Chloride (Potassium Chloride Oral Tablet 10 Meq) 10 meq PO DAILYCM [facility] Last Admin: 10/12/20 08:05 Dose: 10 meq Documented by: Prochlorperazine Edisylate (Prochlorperazine 10 Mg/2 Ml Vial) 5 mg IV Q4H PRN PRN PRN Reason: Breakthrough Nausea/Vomiting Rivaroxaban (Rivaroxaban 15 Mg Tablet) 15 mg PO DAILY@1700 [facility] Last Admin: 10/11/20 17:55 Dose: 15 mg Documented by: Senna/Docusate Sodium (Senna/Docusate Sodium 1 Tablet) 2 tablet PO BID PRN PRN Reason: Constipation Sodium Chloride (0.9% Saline Lock 10 Ml Syringe) 10 - 40 ml IV UD PRN PRN Reason: SALINE FLUSH Last Admin: 10/11/20 20:45 Dose: 10 ml Documented by: Sodium Chloride (Sodium Chloride 0.65% 1 [place].Btl) 2 spray NASAL TID PRN PRN PRN Reason: NASAL DRYNESS Last Admin: 10/12/20 01:14 Dose: 2 spray Documented by: STROKE Vital Signs/Narrative: Vital Signs Temp Pulse Resp BP Pulse Ox 10/12/20 07:55 97.9 F 90 18 119/75 94 10/12/20 07:21 75 10/12/20 07:15 97 Medical Necessity - Tobacco Use Smoking Status: Former smoker Tobacco Use: Cigarettes Assessment/Plan All Active Problems Hypoxemia (Acute) COVID-19 (Resolved) 1. Acute respiratory insufficiency secondary to acute on chronic systolic and diastolic CHF/severe pulmonary hypertension/status post AICD placement/CAD status post CABG and MVR/chronic A. fib flutter -Please on Lasix drip and is doing much better, renal function is about baseline -Can stop the Lasix drip and transition him to bolus Lasix 40 twice daily -Echo with an EF of 30% -Continue with his home Coreg, KEVIN inhibitor, Xarelto -We will evaluate with PT/OT may need possible placement at SNF 2. CKD 3a -No WILTON on admission, will continue to monitor. Creatinine baseline is around 1.4-1.6 3. Chronic thrombocytopenia -Platelets normal cooperative always been below 100,000 -We will continue to monitor DVT: Gustavorelpratik Inpatient E&M: 15544 Subs Hosp L2
[2020-10-12] MEDS: 0.9% Saline Lock 10 ML Syringe IV ×2 (12:47→18:10)
[2020-10-12] MEDS: Potassium Chloride Oral Tablet 20 MEQ 40 MEQ PO (12:47)
[2020-10-12] MEDS: Furosemide 40 MG/4 ML Vial IV ×2 (12:47→18:10)
[2020-10-12] MEDS: Rivaroxaban 15 MG Tablet PO (16:08)
[2020-10-12] MEDS: Mag Hydrox/Al Hydrox/Simeth 30 ML UDC PO (19:43)
[2020-10-13] VITALS (7 sets, daily range): BP systolic 137–139; BP diastolic 78; PULSE 74–84; RESP 16; TEMP 36.7; O2SAT 87–96
[2020-10-13] MEDS: MELATONIN 3 MG TABLET PO (00:01)
[2020-10-13 06:33] LABS: Absolute Lymphocyte Count 1.03 X10^3/uL (0.83-4.51); Absolute Neutrophil Count 2.6 X10^3/uL (2.0-7.7); Basophil# 0.04 X10^3/uL; Basophil% 0.9 % (0-1); Eosinophil# 0.13 X10^3/uL; Eosinophils% 2.9 % (0-5); Hematocrit 39.3 % (40-54); Hemoglobin 12.5 g/dL (13.0-16.5); Lymphocyte # 1.03 X10^3/ul (4.0); Lymphocyte % 22.6 % (19-41); Mean Corp Hgb Conc 31.8 g/dL (32-36); Mean Corpuscular Hgb 33.6 pg (27.0-32.0); Mean Corpuscular Volume 105.6 fL (80-94); Mean Platelet Vol. 12.5 fl (6.2-12.0); Monocyte% 15.4 % (0-10); NRBC Flagged by Analyzer 0 % (0-5); Neutrophil # 2.64 X10^3/uL (2.7-7.7); Neutrophil % 57.8 % (47-70); POSITIVE COUNT YES; RBC Distribution Width CV 14.7 % (11.6-14.6); RBC Distribution Width SD 58.2 fl (35.1-43.9); Red Blood Count 3.72 M/mm3 (4.6-6.2); White Blood Count 4.6 K/mm3 (4.4-11.0)
[2020-10-13 06:35] LABS: Differential Indicated SCAN CRITERIA MET; Platelet Count 49 K/mm3 (150-450)
[2020-10-13 06:50] LABS: Platelet Estimate MKD DEC (ADEQ)
[2020-10-13 06:55] LABS: Anion Gap 4 (5-15); BUN 45 mg/dL (7-18); BUN/Creat Ratio 28.5 RATIO (10-20); Chloride 108 mmol/L (98-107); Creatinine, Serum 1.58 mg/dL (0.70-1.30); EST Glomerular Filtration Rate 45 mL/min (>60); Est Glom Filt Rate - Afr Amer 54 mL/min (>60); Estimated Creatinine Clearance 30.85 ml/min; Glucose 114 mg/dL (74-106); Potassium 3.9 mmol/L (3.5-5.1); Sodium Level 145 mmol/L (136-145)
[2020-10-13] MEDS: Carvedilol 6.25 MG Tablet PO (09:26)
[2020-10-13] MEDS: Lisinopril 10 MG Tablet PO (09:26)
[2020-10-13] MEDS: Potassium Chloride Oral Tablet 10 MEQ PO (09:26)
[2020-10-13] MEDS: Furosemide 40 MG/4 ML Vial IV (09:27)
[2020-10-13] MEDS: Finasteride 5 MG Tablet PO (09:27)
[2020-10-13] MEDS: 0.9% Saline Lock 10 ML Syringe IV (09:27)
--- NOTE | 2020-10-13 09:35 | CASEMGMT ---
SW noted in patient's chart that he now would like TCU not [facility]. SW spoke with Johnna and she would have a bed for patient as long as his 2nd COVID test is negative. SW met with patient, introduced self and role at [facility]. SW confirmed he wants to go to TCU. SW let him know they would have a bed for him. SW also told him that he will be in quarantine until next . SW explained once he is 2 weeks out from his vaccine he can come out of quarantine, which is next . SW explained he will still get therapy, but he will not be allowed to have visitors during that time. He verbalized understanding. SW called patient's son Stevan, introduced self and role at [facility]. SW let him know that TCU can accept patient. SW also explained the week quarantine to him. He verbalized understanding. He just requested that someone call him when patient is on his way over to TCU. He said he will be on vacation starting . Plan: d/c to [facility] TCU under skilled level of care. Noelle AMES
--- NOTE | 2020-10-13 10:08 | PCM.TXEXTCAR ---
- Diet 10/10/20 14:41 Diet: Cardiac - Heart Healthy Food consistency:: Regular Liquid Consistency:: Regular/Thin - Routine Orders/Code Status Routine Lab Work: CBC Code Status: Full Code - Therapies Physical Therapy: Eval and Treat Occupational Therapy: Eval and Treat - Allergies/Procedures Done in Hospital Allergies/Adverse Reactions: Allergies ofloxacin [From Floxin] Allergy (Verified 10/10/20 14:39) migraine diphenhydramine [From Benadryl] Adverse Reaction (Verified 10/10/20 14:39) shuts off my urine Procedures: 2-D Echocardiogram - Type of Care/Length of Stay Estimated LOS: Convalescent Care Less Than 30 days Type of Care Needed: Skilled Rehab Potential: Good Prognosis: Good - Additional Orders/Day of Discharge Day of Discharge: 10/13/20 - Dietary and Speech Recommendations Dietitian Recommendations/Changes: continue cardiac diet as ordered; recommend fluid restriction of 6259-8576 ml daily. - Follow Up Care Primary Care Physician: Prabhu Vee MD [Primary Care Provider] - Please follow up with your Primary Care Physician in: 3-5 days
--- NOTE | 2020-10-13 10:38 | DS.PCM_ITS ---
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 Stable calcified granulomas. No acute abnormality is seen Electronically Signed: Felipe Beckman MD at 11:18 EDT , Service support , Echocardiogram 10/10/20 14:41 Interpretation Summary Normal LV size. The estimated ejection fraction is 30 %. Moderately severe segmental systolic dysfunction (see wall motion). The right atrium is moderately enlarged. The left atrium is moderately enlarged. Stable appearing bioprosthetic mitral valve apparatus. Ordering Physician: Galdino Christopher Referring Physician: Prabhu Vee Performed By: Eloisa Bui, CAYLACS, RVT Echo: Interpretation Summary Normal LV size. The estimated ejection fraction is 30 %. Moderately severe segmental systolic dysfunction (see wall motion). The right atrium is moderately enlarged. The left atrium is moderately enlarged. Stable appearing bioprosthetic mitral valve apparatus. Consults: Nephrology Operations: None Procedures: 2-D Echocardiogram Summary of Care Provided: Per HPI: The patient is a 85 year old M with history of chronic heart failure, coronary artery status post four-vessel CABG in 2006 and then repeat CABG and bioprosthetic MVR in in , AICD in came to ER for progressive worsening of shortness of breath for 6 months. Shortness of breath got worse for last 2 weeks. Patient has orthopnea and PND. Bilateral lower extremity swelling/edema, abdominal swelling and gain of weight, 7 pound in past 2 weeks. Patient had Lasix increased from 40 mg daily to 80 mg daily about 10 days ago by PCP. Patient has moved his cardiac care from [facility] to Dr. Blunt. Patient blood pressure is labile, fluctuating from 77/60- 139/90 probably related to shift of fluid. Denies chest pressure or chest pain, palpitation, diaphoresis, fever, chills. He was recently admitted from 09/23?09/25 for COVID-19 infection for shortness of breath. Rapid antigen and COVID-19 PCR was positive on 09/23 patient was discharged on dexamethasone and self quarantine. Here in the ER rapid COVID-19 PCR repeat is negative Twelve-lead EKG shows atrial flutter with 3-1 conduction, incomplete right bundle branch block, QTC 429 ms. BNP elevated 657. First troponin negative. BUN/creatinine elevated from baseline. No leukocytosis. Chest x-ray initially reviewed shows cardiomegaly with mild hilar mild congestion but officially reported no acute abnormality. Hospital Course: 1. Acute respiratory insufficiency secondary to acute on chronic systolic and diastolic CHF/severe pulmonary hypertension/status post AICD placement/CAD status post CABG and MVR/chronic A. [id number][id number]-old male presented to the hospital with increasing shortness of breath that had worsened over the last 2 weeks prior to admission. He did have an increase in his Lasix from 40 mg to 80 mg daily about 10 days prior however this was likely a little too late and he continued to worsen. He presented to the hospital was placed initially on a Lasix drip and did very well was able to breathe much easier so he was transitioned to twice daily dosing as his bicarb had risen substantially from 29-35. He continued to diurese well and has gone down approximately 3.5 L on the day of discharge. He is maintaining his oxygen sats on about 1 L. I recommend that on discharge to the transitional care unit secondary to his debility, that they aggressively wean his oxygen continue with his p.o. Lasix daily and monitor his renal function as necessary. I also recommend a fluid restriction of 1200 to 1500 cc daily. I did discuss with him the plan for discharge today to TCU and he expressed understanding of the risk and benefits of going to a chcf facility would like to go today. He says that he is walking much further than he was able to prior to admission and he would like to continue his rehab. 2. Chronic thrombocytopenia-he is transitioning his care from [facility] down closer to home and therefore we only have laboratory data from his recent adm ission. His platelets have always been less than 100,000 would recommend continuing monitoring and if he still stays around the 50,000 would recommend follow-up with a patching machine operator as an outpatient. He is currently not at risk for bleeding and given his A. fib would continue his Xarelto. 3. Recent COVID-19-he was diagnosed with Covid on September 22. This was a few days prior to him receiving his second dose of the vaccine. He has received both doses of the vaccine but a second dose was about a week ago. No longer symptomatic and no no longer needs steroid treatment therefore his Decadron was discontinued on discharge. His Covid test have been negative x2 and given the fact that he has had both doses of his vaccine would be reasonable to consider allowing visitors sooner than you otherwise would. 4. CKD 3 a is a chronic medical condition which complicates his care. His home medications were continued where appropriate Patient Problems: Active and Suspected Problems Hypoxemia (Acute) - Physical Exam Vitals/I&O's: Vital Signs Temp Pulse Resp BP Pulse Ox 98.1 F 74 16 137/78 H 87 10/13/20 09:15 10/13/20 09:15 10/13/20 09:15 10/13/20 09:15 10/13/20 09:20 Oxygen Flow Rate (L/min) 2 Oxygen Delivery Method Room Air Weight: 169 lb 12.095 oz Body Mass Index (BMI) 28.3 Intake and Output for Last 24 Hours 10/11/20 10/12/20 10/13/20 23:59 23:59 23:59 Intake Total 1357.25 / 1357.25 930 / 930 50 / 50 Output Total 3500 / 3500 1775 / 1775 150 / 150 Balance -2142.75 / -2142.75 -845 / -845 -100 / -100 General: Alert, Oriented x3, Cooperative, No apparent distress HEENT: Atraumatic, PERRLA, EOMI, Normocephalic Oral: Moist Mucosa Neck: Supple, No JVD Lungs: Clear to auscultation, Normal air movement, No rhonchi, No wheeze, No rales, Diminished Cardiovascular: Regular rate, Regular Rhythm, Normal S1, Normal S2, No murmurs Abdomen: Soft, Non Tender, Non-Distended, No Hepato-splenomegaly Extremities: Capillary Refill Less than 3 Seconds, Edema - 1+ pitting edema bilaterally Skin: No rashes, No breakdown Neurological: Neuro grossly intact, Sensory exam intact to light touch and pain Psych/Mental Status: Normal Affect, Appropriate Microbiology Past 72 Hours 10/13/20 09:30 Mucosa - Nose SARS-CoV-2 Antigen (Rapid) - Final 10/10/20 13:22 Mucosa - Nose SARS-CoV-2 Antigen (Rapid) - Final Laboratory Results 10/13/20 05:40: WBC 4.6, RBC 3.72 L, Hgb 12.5 L, Hct 39.3 L, MCV 105.6 H, MCH 33.6 H, MCHC 31.8 L, RDW Std Deviation 58.2 H, RDW Coeff of Daryl 14.7 H, Plt Cou nt 49 L*, MPV 12.5 H, Immature Gran % (Auto) 0.400, Neut % (Auto) 57.8, Lymph % (Auto) 22.6, [place] % (Auto) 15.4 H, Eos % (Auto) 2.9, Baso % (Auto) 0.9, Absolute Neuts (auto) 2.6, Absolute Lymphs (auto) 1.03, Nucleated RBC % 0, Diff Path Review November, Platelet Estimate MKD 10/13/20 05:40: Sodium 145, Potassium 3.9, Chloride 108 H, Carbon Dioxide 33.0 H , Anion Gap 4 L, BUN 45 H, Creatinine 1.58 H, Estim Creat Clear Calc 30.85, Est GFR (MDRD) Af Amer 54 L, Est GFR (MDRD) Non-Af 45 L, BUN/Creatinine Ratio 28.5 H , Glucose 114 H, Calcium 8.0 L Current Medications Acetaminophen (Acetaminophen 325 Mg Tablet) 650 mg PO Q6H PRN PRN PRN Reason: Pain Score 1-10/Temp > 100.7 F Last Admin: 10/12/20 01:14 Dose: 650 mg Documented by: Al Hydroxide/Mg Hydroxide (Mag Hydrox/Al Hydrox/Simeth 30 Ml Udc) 30 ml PO Q6H PRN PRN PRN Reason: Gastric Burning Last Admin: 10/12/20 19:43 Dose: 30 ml Documented by: Albuterol Sulfate (Albuterol 2.5 Mg/3 Ml Vial.Neb.) 2.5 mg INHALATION Q2H PRN PRN PRN Reason: SOB/Wheezing Carvedilol (Carvedilol 6.25 Mg Tablet) 6.25 mg PO BID [facility] Last Admin: 10/13/20 09:26 Dose: 6.25 mg Documented by: Finasteride (Finasteride 5 Mg Tablet) 5 mg PO DAILY [facility] Last Admin: 10/13/20 09:27 Dose: 5 mg Documented by: Furosemide (Furosemide 40 Mg/4 Ml Vial) 40 mg IV BID@1000,1800 [facility] Last Admin: 10/13/20 09:27 Dose: 40 mg Documented by: Lisinopril (Lisinopril 10 Mg Tablet) 10 mg PO DAILY [facility] Last Admin: 10/13/20 09:26 Dose: 10 mg Documented by: Melatonin (Melatonin 3 Mg Tablet) 3 mg PO QHS [facility] Last Admin: 10/13/20 00:01 Dose: 3 mg Documented by: Morphine Sulfate (Morphine 2 Mg/Ml Syringe) 2 mg IV Q3H PRN PRN PRN Reason: Pain Score 6-10 Nitroglycerin (Nitroglycerin (Inpatient Use) 0.4 Mg Tab.Subl) 0.4 mg SL Q5M PRN PRN Reason: CARDIAC/CHEST PAIN Oxycodone HCl (Oxycodone 5 Mg Tablet) 5 mg PO Q4H PRN PRN PRN Reason: Pain Score 4-5 Potassium Chloride (Pot[facility] 10 [facility] Admin: 10/13/20 09:26 Dose: 10 meq Documented by: Prochlorperazine Edisylate (Prochlorperazine 10 Mg/2 Ml Vial) 5 mg IV Q4H PRN PRN PRN Reason: Breakthrough Nausea/Vomiting Rivaroxaban (Rivaroxaban 15 Mg Tablet) 15 mg PO DAILY@1700 [facility] Last Admin: 10/12/20 16:08 Dose: 15 mg Documented by: Senna/Docusate Sodium (Senna/Docusate Sodium 1 Tablet) 2 tablet PO BID PRN PRN Reason: Constipation Sodium Chloride (0.9% Saline Lock 10 Ml Syringe) 10 - 40 ml IV UD PRN PRN Reason: SALINE FLUSH Last Admin: 10/13/20 09:27 Dose: 10 ml Documented by: Sodium Chloride (Sodium Chloride 0.65% 1 [place].Btl) 2 spray NASAL TID PRN PRN PRN Reason: NASAL DRYNESS Last Admin: 10/12/20 20:47 Dose: 2 spray Documented by: Home Medications: Medications to take at Discharge Albuterol Inhaler [Ventolin Hfa] 1 - 2 puff INHALATION Q4H PRN PRN #1 inhaler 09/22/20 Carvedilol [Coreg (Beta Latoya)] 12.5 mg PO BID 09/22/20 Enalapril Maleate 20 mg PO DAILY 09/22/20 Finasteride 5 mg PO DAILY 09/22/20 Furosemide [Lasix] 40 mg PO DAILY 09/22/20 Potassium Chloride 10 meq PO DAILY 09/22/20 Cyanocobalamin (Vitamin B-12) [Vitamin B-12] 2,000 mcg PO DAILY 09/23/20 Multivitamin with Minerals [Multiple Vitamin] 1 tab PO DAILY 09/23/20 [place]-3 Fatty Acids/Fish Oil [[place] 3 1,000 mg Softgel] 1 ea PO BID 09/23/20 Rivaroxaban [Xarelto] 15 mg PO DAILY #30 tab 09/25/20 Cholecalciferol (Vitamin D3) [Vitamin D3] 1,000 unit PO DAILY 10/10/20 Super Beta Prostate 1 tablet PO BID 10/10/20 Primary Care Physician: Prabhu Vee MD [Primary Care Provider] - Please follow up with your Primary Care Physician in: 3-5 days Disposition: Nursing Home facility Minutes spent on discharge:: 35 Patient Condition:: Stable Medical Necessity - Tobacco Use Smoking Status: Former smoker Tobacco Use: Cigarettes Meaningful Use Info Meaningful Use Diagnoses (Choose all that apply): None applicable Inpatient E&M: 71656 Disch Hosp
--- NOTE | 2020-10-13 10:40 | PHA.DC.MR ---
Pharmacy Service has performed discharge medication reconciliation for this patient. The patient's discharge medication list was reviewed for discrepancies and discrepancies were resolved. Home Medications Albuterol Inhaler [Ventolin Hfa] 1 - 2 puff INHALATION Q4H PRN PRN #1 inhaler 09/22/20 Carvedilol [Coreg (Beta Latoya)] 12.5 mg PO BID 09/22/20 Enalapril Maleate 20 mg PO DAILY 09/22/20 Finasteride 5 mg PO DAILY 09/22/20 Furosemide [Lasix] 40 mg PO DAILY 09/22/20 Potassium Chloride 10 meq PO DAILY 09/22/20 Cyanocobalamin (Vitamin B-12) [Vitamin B-12] 2,000 mcg PO DAILY 09/23/20 Multivitamin with Minerals [Multiple Vitamin] 1 tab PO DAILY 09/23/20 [place]-3 Fatty Acids/Fish Oil [[place] 3 1,000 mg Softgel] 1 ea PO BID 09/23/20 Rivaroxaban [Xarelto] 15 mg PO DAILY #30 tab 09/25/20 Cholecalciferol (Vitamin D3) [Vitamin D3] 1,000 unit PO DAILY 10/10/20 Super Beta Prostate 1 tablet PO BID 10/10/20
--- NOTE | 2020-10-13 11:50 | CASEMGMT ---
Pt qualifies for palliative c/s per [facility] palliative screening tool and Dr. Dolan is agreeable. Referral faxed to palliative and message left with palliative regarding referral and pt discharge to TCU today. [facility] BETY, also updated by Howie ALBERT. Stephon BURTON CM
--- NOTE | 2020-10-13 11:56 | NURSING ---
This RN called report to JOSEPHINE Matute on TCU.
--- NOTE | 2020-10-13 13:09 | CASEMGMT ---
Patient left for TCU. BETY called patient's son and let him know. BETY also gave him the phone number to TCU. He thanked BETY for all the assistance. Plan: d/c to [facility] TCU under skilled level of care Noelle AMES
[2020-10-13 13:43] LABS: Pathologist Review Reviewed
[2020-10-13 13:47] LABS: Pathologist Review Reviewed
== END 2020-10-13 12:50 | DRG 291 ==
LOC: ED 12:02 → ICU 14:23 → PCU 10-11 11:44
PROVIDERS: Admitting Provider Internal Medicine; Emergency Provider Emergency Medicine; PCP Family Medicine; Visit Provider Family Medicine
DX: I13.0 Hypertensive heart and chronic kidney disease with heart failure and stage 1 through stage 4 chronic kidney disease, or unspecified chronic kidney disease (principal); I50.43 Acute on chronic combined systolic (congestive) and diastolic (congestive) heart failure; J96.01 Acute respiratory failure with hypoxia; N17.9 Acute kidney failure, unspecified; I48.92 Unspecified atrial flutter; I25.810 Atherosclerosis of coronary artery bypass graft(s) without angina pectoris; I48.20 Chronic atrial fibrillation, unspecified; D68.9 Coagulation defect, unspecified; N18.31 Chronic kidney disease, stage 3a; I25.10 Atherosclerotic heart disease of native coronary artery without angina pectoris; D69.6 Thrombocytopenia, unspecified; D72.819 Decreased white blood cell count, unspecified; D75.89 Other specified diseases of blood and blood-forming organs; I50.82 Biventricular heart failure; I27.20 Pulmonary hypertension, unspecified; I25.5 Ischemic cardiomyopathy; D63.1 Anemia in chronic kidney disease; E87.6 Hypokalemia; Z95.3 Presence of xenogenic heart valve; Z95.810 Presence of automatic (implantable) cardiac defibrillator; Z79.01 Long term (current) use of anticoagulants; Z79.899 Other long term (current) drug therapy; Z86.16 Personal history of COVID-19; Z87.891 Personal history of nicotine dependence
CPT/HCPCS: 36415; 71045; 80048; 80061; 80076; 81001; 82436; 82570; 82607; 83735; 83880; 83935; 84133; 84300; 84484; 85025; 87426; 93005; 93306; 94762; 97162; 97166; 97530; 97535; 97802; 99285; A4216; J1940

== ENCOUNTER 2020-10-13 13:02 | Inpatient (IN) | payer MEDICARE, OTHER, SELFPAY ==
[2020-10-10 14:36] VITALS: BMI 28.3
[2020-10-13 13:03] VITALS: BP 132/70; PULSE 80; RESP 18; RESP 20; TEMP 36.5; O2SAT 93; BMI 27.4; BMI 27.5
[2020-10-13] MEDS: Carvedilol 12.5 MG Tablet PO (17:14)
--- NOTE | 2020-10-13 20:43 | HP.PCM_ITS ---
Problem List (1) Debility Status: Acute (2) Acute on chronic systolic congestive heart failure Status: Acute (3) Acute kidney injury Status: Acute (4) COVID-19 Status: Chronic (5) Benign prostatic hyperplasia Status: Chronic (6) CAD (coronary artery disease) Status: Chronic (7) Hypoxemia Status: Acute (8) Atrial flutter Status: Chronic (9) Thrombocytopenia Status: Chronic History of Present Illness Date of Admission: 10/13/20 Chief Complaint: Here for rehabilitation, strengthening, prior to discharge home alone. 10/10/2020 The patient is a 85 year old Male with below past medical history presented to [facility] Emergency Department with shortness of breath. 10/10/2020 EKG atrial flutter with variable AV block with frequent ventricular paced complexes, incomplete right bundle branch block, possible inferior infarct, age undetermined. ST&T wave abnormality, consider lateral ischemia. 10/10/2020 Chest X-ray showed cardiomegaly, stable calcified granulomas. Chronic shortness of breath, worse over past year. Severe dyspnea on exertion, positive orthopnea, chills, nausea. CHF in past, 7 pound weight gain in 2 weeks despite doubling Lasix. BNP 657. 10/10/2020 Admit to Hospital. Lasix drip for congestive heart failure, complicated by labile blood pressure/hypotension. Coreg decreased to 6.25MG twice daily for hypotension. 10/10/2020 Echo Normal LV size. EF 30%, Moderately severe segmental systolic dysfunction. Lasix drip transitioned to Lasix twice daily. PT/OT recommended TCU. Recent COVID-19 infection resolved, received both doses COVID-19 vaccine. 10/13/2020 Admit to TCU with debility, here for rehabilitation, strengthening, prior to discharge home alone. 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) COVID-19 (Chronic) Benign prostatic hyperplasia (Chronic) Allergies ofloxacin [From Floxin] Allergy (Verified 10/10/20 14:39) migraine diphenhydramine [From Benadryl] Adverse Reaction (Verified 10/10/20 14:39) shuts off my urine Home Medications: Ambulatory Orders Medication Instructions Recorded Albuterol Inhaler [Ventolin Hfa] 1 - 2 puff INHALATION Q4H PRN PRN 09/22/20 #1 inhaler Carvedilol [Coreg (Beta Latoya)] 12.5 mg PO BID 09/22/20 Enalapril Maleate 20 mg PO DAILY 09/22/20 Finasteride 5 mg PO DAILY 09/22/20 Furosemide [Lasix] 40 mg PO DAILY 09/22/20 Potassium Chloride 10 meq PO DAILY 09/22/20 Cyanocobalamin (Vitamin B-12) 2,000 mcg PO DAILY 09/23/20 [Vitamin B-12] Multivitamin with Minerals 1 tab PO DAILY 09/23/20 [Multiple Vitamin] [place]-3 Fatty Acids/Fish Oil 1 ea PO BID 09/23/20 [[place] 3 1,000 mg Softgel] Cholecalciferol (Vitamin D3) 1,000 unit PO DAILY 10/10/20 [Vitamin D3] Super Beta Prostate 1 tablet PO BID 10/10/20 Rivaroxaban [Xarelto] 15 mg PO DAILY 10/13/20 Surgical History: coronary bypass surgery, - - mitral valve replacement, ICD. Psychiatric History: No pertinent psych hx Lives: Alone Smoking Status: Former smoker Tobacco Use: Non-smoker Alcohol: None Drugs: None - *Family History Maternal History Items: No pertinent history Paternal History Items: No pertinent history Review of Systems Constitutional: Denies: Chills, Fever, Weight Change HEENT: Denies: Head Aches, Sinus Congestion, Sinus Drainage Cardiovascular: Denies: Chest Pain, Palpitations Respiratory: Denies: Cough, Shortness of breath at rest, Sputum production Gastrointestinal: Denies: Abdominal Pain, Nausea, Vomiting Genitourinary: Denies: Dysuria Musculoskeletal: Denies: Joint Pain, Joint Tenderness Skin: Denies: Rash, Wounds Neurological: Denies: Numbness, Tingling, Focal weakness Psychiatric: Denies: Anxiety, Depression, Homicidal Ideations, Suicidal Ideations Hematologic/ Lymphatic: Denies: Easy Bruising, Easy Bleeding VTE Information - Inpt Only VTE Present on Admission: No VTE Mechan Device Prophylaxis: Knee High [place] Hose VTE Pharm Prophylaxis ordered?: No Reason prophylaxis not ordered:: Treatment Not Indicated Patient Problems: Active and Suspected Problems Hypoxemia (Acute) Debility (Acute) Acute on chronic systolic congestive heart failure (Acute) Acute kidney injury (Acute) - Physical Exam Vitals/I&O's: Vital Signs Temp Pulse Resp BP Pulse Ox 97.7 F L 80 18 132/70 H 93 10/13/20 13:03 10/13/20 13:03 10/13/20 13:03 10/13/20 13:03 10/13/20 13:03 Oxygen Flow Rate (L/min) 2 Oxygen Delivery Method Nasal Cannula Weight: 77.252 kg Body Mass Index (BMI) 27.4 Intake and Output for Last 24 Hours 10/11/20 10/12/20 10/13/20 23:59 23:59 23:59 Intake Total 240 / 240 Balance 240 / 240 General: Alert, Oriented x3, Cooperative HEENT: Atraumatic, PERRLA, EOMI, Normocephalic Neck: Supple, No JVD, Negative Carotid Bruits Lungs: Clear to auscultation, Normal air movement Cardiovascular: Regular rate, No murmurs Abdomen: Bowel Sounds Present, Soft, Non Tender Extremities: No edema, Capillary Refill Less than 3 Seconds Skin: No rashes, No breakdown Musculoskeletal: No Tenderness to Palpation of Joints or Extremities Neurological: Cranial nerves II-XII grossly intact Psych/Mental Status: Normal Affect, Appropriate Current Medications Albuterol Sulfate (Albuterol 2.5 Mg/3 Ml Vial.Neb.) 2.5 mg INHALATION Q4H PRN PRN PRN Reason: WHEEZING Carvedilol (Carvedilol 12.5 Mg Tablet) 12.5 mg PO BID [facility] Last Admin: 10/13/20 17:14 Dose: 12.5 mg Documented by: Finasteride (Finasteride 5 Mg Tablet) 5 mg PO DAILY [facility] Furosemide (Furosemide 40 Mg Tablet) 40 mg PO DAILY [facility] Lisinopril (Lisinopril 20 Mg Tablet) 20 mg PO DAILY [facility] Melatonin (Melatonin 10 Mg Tablet) 10 mg PO QHS [facility] Potassium Chloride (Potassium Chloride Oral Tablet 10 Meq) 10 meq PO DAILYCM [facility] Rivaroxaban (Rivaroxaban 15 Mg Tablet) 15 mg PO DAILYCM [facility] Sodium Chloride (0.9% Saline Lock 10 Ml Syringe) 10 - 40 ml IV UD PRN PRN Reason: SALINE FLUSH Tuberculin PPD (Tuberculin,Purif.Prot.Deriv. 50 Tu/Ml Vial) 5 tu ID X1 ONE Stop: 10/14/20 10:01 Tuberculin PPD (Tuberculin,Purif.Prot.Deriv. 50 Tu/Ml Vial) 5 tu ID X1 ONE Stop: 10/21/20 10:01 Assessment/Plan All Active Problems Hypoxemia (Acute) Debility (Acute) Acute on chronic systolic congestive heart failure (Acute) Acute kidney injury (Acute) COVID-19 (Resolved) 85 year old male with below past medical history hospitalized for acute respirat ory failure with hypoxia secondary to acute on chronic systolic congestive heart failure, complicated by hypotension, admitted to TCU with debility, here for rehabilitation, strengthening, prior to discharge home alone. * Debility - PT/OT. * Pain - Tylenol 1000MG Q6H PRN pain (1-10). * Bowel - Miralax 17GM daily, Senna/colace 1 tablet BID, MOM 30ML daily PRN, Dulcolax 10MG daily PRN. * Adult immunization - Administer Prevnar 13, Pneumovax 23, Fluzone, COVID19 vaccine. * DVT prophylaxis - Not necessary, already anticoagulated. * Shortness of breath - Albuterol 2.5MG Q4H PRN. * Acute on chronic systolic congestive heart failure - Coreg 12.5MG BID, Lisinopril 20MG daily, Lasix 40MG daily, consider Entresto to decrease risk of cardiovascular , and hospitalization from systolic congestive heart failure. * BPH - Finasteride 5MG daily. * Hypokalemia - KCL 10MEQ daily. * Atrial Flutter - Coreg 12.5MG BID, Xarelto 15MG daily. * Insomnia - Melatonin 10MG QHS.
[2020-10-13] MEDS: MELATONIN 10 MG TABLET PO (21:00)
[2020-10-14 05:52] LABS: Absolute Lymphocyte Count 0.97 X10^3/uL (0.83-4.51); Absolute Neutrophil Count 2.5 X10^3/uL (2.0-7.7); Basophil# 0.04 X10^3/uL; Basophil% 0.9 % (0-1); Eosinophils% 4.6 % (0-5); Hematocrit 39.8 % (40-54); Hemoglobin 12.8 g/dL (13.0-16.5); Lymphocyte # 0.97 X10^3/ul (4.0); Lymphocyte % 22.5 % (19-41); Mean Corp Hgb Conc 32.2 g/dL (32-36); Mean Corpuscular Volume 105.9 fL (80-94); Monocyte# 0.58 X10^3/uL; Monocyte% 13.5 % (0-10); NRBC Flagged by Analyzer 0 % (0-5); Neutrophil # 2.51 X10^3/uL (2.7-7.7); Neutrophil % 58.3 % (47-70); POSITIVE COUNT YES; Platelet Count 49 K/mm3 (150-450); RBC Distribution Width CV 14.6 % (11.6-14.6); RBC Distribution Width SD 57.5 fl (35.1-43.9); Red Blood Count 3.76 M/mm3 (4.6-6.2); White Blood Count 4.3 K/mm3 (4.4-11.0)
[2020-10-14 05:55] LABS: Differential Indicated SCAN CRITERIA MET
[2020-10-14 06:20] LABS: Anion Gap 3 (5-15); BUN 39 mg/dL (7-18); BUN/Creat Ratio 28.1 RATIO (10-20); Calcium,Total 8.2 mg/dL (8.5-10.1); Chloride 110 mmol/L (98-107); Creatinine, Serum 1.39 mg/dL (0.70-1.30); EST Glomerular Filtration Rate 52 mL/min (>60); Est Glom Filt Rate - Afr Amer 62 mL/min (>60); Estimated Creatinine Clearance 35.06 ml/min; Glucose 99 mg/dL (74-106); Sodium Level 144 mmol/L (136-145)
[2020-10-14 06:45] VITALS: BP 137/85; PULSE 77; RESP 17; TEMP 36.6; O2SAT 92
[2020-10-14] MEDS: Polyethylene Glycol 3350 17 GM PACKET PO (06:46)
[2020-10-14] MEDS: Finasteride 5 MG Tablet PO (06:48)
[2020-10-14] MEDS: 0.9% Saline Lock 10 ML Syringe IV (06:48)
[2020-10-14] MEDS: Lisinopril 20 MG Tablet PO (06:48)
[2020-10-14] MEDS: Furosemide 40 MG Tablet PO (06:49)
[2020-10-14] MEDS: Carvedilol 12.5 MG Tablet PO ×2 (06:49→17:45)
[2020-10-14] MEDS: Rivaroxaban 15 MG Tablet PO (08:22)
[2020-10-14] MEDS: Potassium Chloride Oral Tablet 10 MEQ PO (08:22)
--- NOTE | 2020-10-14 10:51 | CASEMGMT ---
Social Work Met with patient for initial assessment. Discussed code status. Pt wishes to be full code. Nursing notified. MOLST form reviewed, communication to , placed on chart. Explained Medicare benefit and encouraged to contact secondary insurance to ensure copay coverage.The goal is for pt to return to [facility] [place]. SW to continue to follow. 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
[2020-10-14 11:34] LABS: Pathologist Review Reviewed
[2020-10-14] MEDS: Tuberculin,Purif.prot.deriv. 50 TU/ML Vial 5 ML ID (11:35)
--- NOTE | 2020-10-14 14:21 | PT ---
Pt was on 2L of O2. With activity, pt's SPO2 was 92-95% but when pt was seated and at rest, his SPO2 decreased to 88%. He needed 1-2 min rest to recover to 91-92%.
--- NOTE | 2020-10-14 14:41 | PHA.CONS_ITS ---
<Myra Montejo - Last Filed: 10/14/20 14:41> Progress Note - Pharmacy Subjective: TCU Admission Objective: Allergies ofloxacin [From Floxin] Allergy (Verified 10/10/20 14:39) migraine diphenhydramine [From Benadryl] Adverse Reaction (Verified 10/10/20 14:39) shuts off my urine Current Medications Generic Name Dose Route Start Last Admin Trade Name Freq PRN Reason Stop Dose Admin Acetaminophen 1,000 mg 10/13/20 21:45 Acetaminophen 500 Mg Tablet PO Q6H PRN PRN Pain Score 1-10 Albuterol Sulfate 2.5 mg 10/13/20 14:52 Albuterol 2.5 Mg/3 Ml Vial.Neb. INHALATION Q4H PRN PRN WHEEZING Bisacodyl 10 mg 10/13/20 21:07 Bisacodyl 5 Mg Tablet PO DAILY PRN Constipation Calamine/Phenol 1 applic 10/14/20 18:00 Menthol/Lanolin/Calamine/Znox 113 Gm Tube TOPICAL BID [facility] Protocol Carvedilol 12.5 mg 10/13/20 18:00 10/14/20 06:49 Carvedilol 12.5 Mg Tablet PO 12.5 mg BID [facility] Administration Finasteride 5 mg 10/14/20 06:00 10/14/20 06:48 Finasteride 5 Mg Tablet PO 5 mg DAILY [facility] Administration Furosemide 40 mg 10/14/20 06:00 10/14/20 06:49 Furosemide 40 Mg Tablet PO 40 mg DAILY [facility] Administration Lisinopril 20 mg 10/14/20 06:00 10/14/20 06:48 Lisinopril 20 Mg Tablet PO 20 mg DAILY [facility] Administration Magnesium Hydroxide 30 ml 10/13/20 21:07 Magnesium Hydroxide 30 Ml Udc PO DAILY PRN Constipation Melatonin 10 mg 10/13/20 22:00 10/13/20 21:00 Melatonin 10 Mg Tablet PO 10 mg QHS [facility] Administration Polyethylene Glycol 17 gm 10/14/20 06:00 10/14/20 06:46 Polyethylene Glycol 3350 17 Gm Packet PO 17 gm DAILY [facility] Administration Potassium Chloride 10 meq 10/14/20 08:00 10/14/20 08:22 Potassium Chloride Oral Tablet 10 Meq PO 10 meq DAILYCM [facility] Administration Rivaroxaban 15 mg 10/14/20 08:00 10/14/20 08:22 Rivaroxaban 15 Mg Tablet PO 15 mg DAILYCM [facility] Administration Senna/Docusate Sodium 1 tablet 10/14/20 06:00 10/14/20 06:50 Senna/Docusate Sodium 1 Tablet PO Not Given BID [facility] Sodium Chloride 10 - 40 ml 10/13/20 15:48 10/14/20 06:48 0.9% Saline Lock 10 Ml Syringe IV 10 ml UD PRN Administration SALINE FLUSH Tuberculin PPD 5 tu 10/21/20 10:00 Tuberculin,Purif.Prot.Deriv. 50 Tu/Ml Vial ID 10/21/20 10:01 X1 ONE Problem List CAD (coronary artery disease) (Chronic) Hypoxemia (Acute) Atrial flutter (Chronic) Thrombocytopenia (Chronic) Debility (Acute) Acute on chronic systolic congestive heart failure (Acute) Acute kidney injury (Acute) COVID-19 (Chronic) Benign prostatic hyperplasia (Chronic) Vital Signs Temp Pulse Resp BP Pulse Ox 97.8 F 77 17 137/85 H 92 10/14/20 06:45 10/14/20 06:45 10/14/20 06:45 10/14/20 06:45 10/14/20 06:45 Oxygen Flow Rate (L/min) 2 Oxygen Delivery Method Nasal Cannula Weight: 76.799 kg Body Mass Index (BMI) 27.4 Sodium 144 mmol/L (136-145) 10/14/20 05:32 Potassium 4.0 mmol/L (3.5-5.1) 10/14/20 05:32 Chloride 110 mmol/L (98-107) H 10/14/20 05:32 Carbon Dioxide 31.0 mmol/L (21.0-32.0) 10/14/20 05:32 Anion Gap 3 (5-15) L 10/14/20 05:32 BUN 39 mg/dL (7-18) H 10/14/20 05:32 Creatinine 1.39 mg/dL (0.70-1.30) H 10/14/20 05:32 Est GFR (MDRD) Af Amer 62 mL/min (>60) 10/14/20 05:32 Est GFR (MDRD) Non-Af 52 mL/min (>60) L 10/14/20 05:32 BUN/Creatinine Ratio 28.1 RATIO (10-20) H 10/14/20 05:32 Glucose 99 mg/dL (74-106) 10/14/20 05:32 Assessment/Plan: 1. Pain: acetaminophen 1000mg PO Q6H PRN pain 1-10. Please continue to monitor for increased pain and PRN usage. 2. CHF/atrial flutter: carvedilol 12.5mg PO BID, lisinopril 20mg PO daily, furosemide 40mg PO daily and rivaroxaban 15mg PO daily. Please continue to monitor BP (last 137/85), HR (last 77), renal function, potassium (last 4mmol/L), swelling, and S/S of bleeding. 3. BPH: finasteride 5mg PO daily. Please continue to monitor for S/S of BPH. 4. Hypokalemia: potassium chloride 10mEq PO daily. Please continue to monitor potassium. 5. Shortness of breath: albuterol solution 2.5mg inhalation Q4H PRN wheezing. Please continue to monitor for wheezing. 5. Insomnia: melatonin 10mg PO QHS. Please continue to monitor for excessive drowsiness. Psychotropic Medications: None Unnecessary Medications: None Bowel Regimen: Miralax 17gm PO daily, senna/docusate 1T PO BID, MOM 30mL PO daily PRN constipation, and bisacodyl 10mg PO daily PRN constipation. Please continue to monitor for constipation and PRN usage. Date of Note:: 10/14/20 - Provider Comments Provider responsibility: Provider responsible to enter orders to implement recommendations <Melvin Kraft Chi - Last Filed: 10/14/20 16:55> Progress Note - Pharmacy Subjective: [] Objective: Allergies ofloxacin [From Floxin] Allergy (Verified 10/10/20 14:39) migraine diphenhydramine [From Benadryl] Adverse Reaction (Verified 10/10/20 14:39) shuts off my urine Current Medications Generic Name Dose Route Start Last Admin Trade Name Freq PRN Reason Stop Dose Admin Acetaminophen 1,000 mg 10/13/20 21:45 Acetaminophen 500 Mg Tablet PO Q6H PRN PRN Pain Score 1-10 Albuterol Sulfate 2.5 mg 10/13/20 14:52 Albuterol 2.5 Mg/3 Ml Vial.Neb. INHALATION Q4H PRN PRN WHEEZING Bisacodyl 10 mg 10/13/20 21:07 Bisacodyl 5 Mg Tablet PO DAILY PRN Constipation Calamine/Phenol 1 applic 10/14/20 18:00 Menthol/Lanolin/Calamine/Znox 113 Gm Tube TOPICAL BID [facility] Protocol Carvedilol 12.5 mg 10/13/20 18:00 10/14/20 06:49 Carvedilol 12.5 Mg Tablet PO 12.5 mg BID [facility] Administration Finasteride 5 mg 10/14/20 06:00 10/14/20 06:48 Finasteride 5 Mg Tablet PO 5 mg DAILY [facility] Administration Furosemide 40 mg 10/14/20 06:00 10/14/20 06:49 Furosemide 40 Mg Tablet PO 40 mg DAILY [facility] Administration Lisinopril 20 mg 10/14/20 06:00 10/14/20 06:48 Lisinopril 20 Mg Tablet PO 20 mg DAILY [facility] Administration Magnesium Hydroxide 30 ml 10/13/20 21:07 Magnesium Hydroxide 30 Ml Udc PO DAILY PRN Constipation Melatonin 10 mg 10/13/20 22:00 10/13/20 21:00 Melatonin 10 Mg Tablet PO 10 mg QHS [facility] Administration Polyethylene Glycol 17 gm 10/14/20 06:00 10/14/20 06:46 Polyethylene Glycol 3350 17 Gm Packet PO 17 gm DAILY [facility] Administration Potassium Chloride 10 meq 10/14/20 08:00 10/14/20 08:22 Potassium Chloride Oral Tablet 10 Meq PO 10 meq DAILYCM [facility] Administration Rivaroxaban 15 mg 10/14/20 08:00 10/14/20 08:22 Rivaroxaban 15 Mg Tablet PO 15 mg DAILYCM [facility] Administration Senna/Docusate Sodium 1 tablet 10/14/20 06:00 10/14/20 06:50 Senna/Docusate Sodium 1 Tablet PO Not Given BID [facility] Sodium Chloride 10 - 40 ml 10/13/20 15:48 10/14/20 06:48 0.9% Saline Lock 10 Ml Syringe IV 10 ml UD PRN Administration SALINE FLUSH Tuberculin PPD 5 tu 10/21/20 10:00 Tuberculin,Purif.Prot.Deriv. 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) Debility (Acute) Acute on chronic systolic congestive heart failure (Acute) Acute kidney injury (Acute) COVID-19 (Chronic) Benign prostatic hyperplasia (Chronic) Shortness of breath (Acute) Vital Signs Temp Pulse Resp BP Pulse Ox 98.0 F 77 18 152/72 H 95 10/14/20 15:59 10/14/20 15:59 10/14/20 15:59 10/14/20 15:59 10/14/20 15:59 Oxygen Flow Rate (L/min) 2 Oxygen Delivery Method Room Air Weight: 76.799 kg Body Mass Index (BMI) 27.4 Sodium 144 mmol/L (136-145) 10/14/20 05:32 Potassium 4.0 mmol/L (3.5-5.1) 10/14/20 05:32 Chloride 110 mmol/L (98-107) H 10/14/20 05:32 Carbon Dioxide 31.0 mmol/L (21.0-32.0) 10/14/20 05:32 Anion Gap 3 (5-15) L 10/14/20 05:32 BUN 39 mg/dL (7-18) H 10/14/20 05:32 Creatinine 1.39 mg/dL (0.70-1.30) H 10/14/20 05:32 Est GFR (MDRD) Af Amer 62 mL/min (>60) 10/14/20 05:32 Est GFR (MDRD) Non-Af 52 mL/min (>60) L 10/14/20 05:32 BUN/Creatinine Ratio 28.1 RATIO (10-20) H 10/14/20 05:32 Glucose 99 mg/dL (74-106) 10/14/20 05:32 Assessment/Plan: Psychotropic Medications: Unnecessary Medications: Bowel Regimen: - Provider Comments Provider responsibility: Provider responsible to enter orders to implement recommendations Provider Comments to Recommendations by Pharmacy: Agree
--- NOTE | 2020-10-14 14:41 | CHAPLAIN ---
Type of Pastoral Visit _x__ Initial Visit ___ Follow-up Visit ___ On-call Visit ___ General Patient Visit ___ Spiritual Assessment ___ Family Conference ___ Bereavement ___ Rapid Response ___ Code Blue ___ Other (describe below) Pastoral Care Referral From _x__ Patient ___ Family ___ Nurse ___ Physician ___ Accounting Reconciliation Clerk ___ Company Accountant ___ Other (describe below) Sacrament/Intervention _x__ Active listening ___ Anointing ___ Lutheran ___ Bereavement ___ Communion _x__ Sandrine exploration ___ _x__ Life review ___ Prayer ___ Reconciliation ___ Sacrament of Sick _x__ Supportive presence ___ Wedding ___ Other (describe below) Pastoral Comments patient presents with positive outlook and energetic conversation; pt states that he is known at [facility] as 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
[2020-10-14 15:59] VITALS: BP 152/72; PULSE 77; RESP 18; TEMP 36.7; O2SAT 95
--- NOTE | 2020-10-14 16:31 | CON.PCM_ITS ---
Problem List (1) Shortness of breath Status: Acute (2) Debility Status: Acute (3) CAD (coronary artery disease) Status: Chronic Qualifiers: Coronary Disease-Associated Artery/Lesion type: [place] artery [place] vs. 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 (9) Thrombocytopenia Status: Chronic (10) Leukopenia Status: Chronic (11) Macrocytosis Status: Chronic (12) Acute on chronic combined systolic (congestive) and diastolic (congestive) heart failure Status: Chronic (13) Biventricular heart failure Status: Chronic (14) Acute on chronic systolic congestive heart failure Status: Acute (15) Acute kidney injury Status: Acute (16) COVID-19 Status: Chronic (17) Benign prostatic hyperplasia Status: Chronic History of Present Illness Date of Consult: 10/14/20 Reason for Consult: shortness of breath, debility Requesting physician: [] Primary care physician: Dr. Prabhu Vee MD - History of Present Illness The patient is a 85 year old M with past medical history as below, presented to the ED originally on 09/23/2020 with complaints of shortness of breath. Follows with cardiology in [place], however a few months ago moved to [facility] so is scheduled to see Dr. Blunt. He had been seen 09/22 and had a positive Covid PCR. He was sent home on dexamethasone/remdesivir but his symptoms significantly worsened so came back to the ED. He was admitted to the ICU for acute on chronic CHF exacerbation as well as COVID-19 infection. Hematology/oncology was consulted during admission due to his thrombocytopenia and leukopenia and recommended repeat, additional lab work in about 2 months.. He was discharged on 09/25/2020. Patient then presented back to the ED 10/10/2020 with again progressive shortness of breath. Also positive for orthopnea, PND, significant abdominal and lower extremity swelling, and weight gain. He was aggressively diuresed and at one point was on a Lasix drip. He is new to oxygen supplementation and is doing well on 1 to 2 L, except 3-4 with exertion. Patient was then discharged to TCU 10/13 for ongoing rehab. He is on a fluid restriction. He is motivated to improve quality of life. He is still short of breath with minimal exertion, wearing 2 L per nasal cannula today. States they have tried to wean him off oxygen and ambulate without it, however he desaturates. He is getting Tylenol 1 g every 6 hours as needed for pain. They have him on a bowel regimen as well. Patient is anticoagulated with Xarelto 15 mg daily. He does have albuterol 2.5 mg every 4 hours as needed for shortness of breath however not using. His lungs are clear, diminished. Most of his symptoms are abdominal and lower extremity edema, which is 2+ pitting. Patient is very active at home, just quit working about 6 months ago. 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 Patient's this past December as well, states it just seems like things have been happening with his health month after month since she . He is smiling and interactive, interested in further discussion of palliative care. Patient has 5 children-4 boys and 1 girl, 2 in the area. He does not have any assistance at his [employer] other than gets all lunches and dinners delivered. Patient reports he has a doctor for every organ. He is moving all of his providers locally so he does not have to travel. Did follow with Dr. Cooper, nephrology at [facility]. Also his urologist was Dr. Krause in [place]. He is asking for recommendations in the area. Patient was scheduled to see Dr. Blunt yesterday, however this was canceled due to his current situation. Reports he had his first CABG in 2009 @[facility], and then for valve replacement at . Patient Problems: Chronic Problems CAD (coronary artery disease) (Chronic) Atrial flutter (Chronic) S/P CABG (coronary artery bypass graft) (Chronic) S/P MVR (mitral valve replacement) (Chronic) ICD (implantable cardioverter-defibrillator) in place (Chronic) Thrombocytopenia (Chronic) Leukopenia (Chronic) Macrocytosis (Chronic) Acute on chronic combined systolic (congestive) and diastolic (congestive) heart failure (Chronic) Biventricular heart failure (Chronic) COVID-19 (Chronic) Benign prostatic hyperplasia (Chronic) Surgical History: coronary bypass surgery, - - mitral valve replacement, ICD. Psychiatric History: No pertinent psych hx Home Medications: Ambulatory Orders Medication Instructions Recorded Albuterol Inhaler [Ventolin Hfa] 1 - 2 puff INHALATION Q4H PRN PRN 09/22/20 #1 inhaler Carvedilol [Coreg (Beta Latoya)] 12.5 mg PO BID 09/22/20 Enalapril Maleate 20 mg PO DAILY 09/22/20 Finasteride 5 mg PO DAILY 09/22/20 Furosemide [Lasix] 40 mg PO DAILY 09/22/20 Potassium Chloride 10 meq PO DAILY 09/22/20 Cyanocobalamin (Vitamin B-12) 2,000 mcg PO DAILY 09/23/20 [Vitamin B-12] Multivitamin with Minerals 1 tab PO DAILY 09/23/20 [Multiple Vitamin] [place]-3 Fatty Acids/Fish Oil 1 ea PO BID 09/23/20 [[place] 3 1,000 mg Softgel] Cholecalciferol (Vitamin D3) 1,000 unit PO DAILY 10/10/20 [Vitamin D3] Super Beta Prostate 1 tablet PO BID 10/10/20 Rivaroxaban [Xarelto] 15 mg PO DAILY 10/13/20 Allergies ofloxacin [From Floxin] Allergy (Verified 10/10/20 14:39) migraine diphenhydramine [From Benadryl] Adverse Reaction (Verified 10/10/20 14:39) shuts off my urine Maternal History Items: No pertinent history Paternal History Items: No pertinent history - Social History Lives: Alone Smoking Status: Former smoker Tobacco Use: Non-smoker Alcohol: None Drugs: None Code Status: Full Code Review of Systems Constitutional: Reports: Weakness, Fatigue. Denies: Chills, Fever, Weight Change Eyes: Denies: Vision Change HEENT: Denies: Difficulty Swallowing, Head Aches, Sinus Congestion, Sinus Drainage, Sore Throat Cardiovascular: Reports: Edema, Orthopnea. Denies: Chest Pain, Palpitations Respiratory: Reports: Shortness of Breath. Denies: Cough, Sputum production Gastrointestinal: Reports: - - Distention/bloating. Denies: Abdominal Pain, Nausea, Vomiting Genitourinary: Reports: Nocturia. Denies: Dysuria, Hematuria Musculoskeletal: Reports: Joint Pain. Denies: Joint Tenderness Skin: Denies: Rash Neurological: Reports: Balance problems. Denies: Change in Speech, Focal weakness, Numbness, Tingling, Tremor Psychiatric: Denies: Anxiety, Depression, Homicidal Ideations, Suicidal Ideations Hematologic/ Lymphatic: Reports: Anemia, Easy Bruising, Easy Bleeding Physical Exam Subjective: Sitting up in recliner, smiling and conversing. States he is slowly getting better with his shortness of breath. Wants to do everything possible to make a better outcome. General: Alert, Oriented x3, Cooperative, No apparent distress HEENT: Atraumatic, Normocephalic Oral: Moist Mucosa Neck: Supple, Trachea Midline Lungs: Clear to auscultation, Diminished - Posterior bases Cardiovascular: Regular rate, Regular Rhythm, Normal S1, Normal S2 Abdomen: Bowel Sounds Present, Soft, Non Tender, Distended Extremities: No cyanosis, Edema Skin: No rashes Musculoskeletal: No Tenderness to Palpation of Joints or Extremities Neurological: Cranial nerves II-XII grossly intact Psych/Mental Status: Normal Affect, Appropriate Objective: Vital Signs Temp Pulse Resp BP Pulse Ox 98.0 F 77 18 152/72 H 95 10/14/20 15:59 10/14/20 15:59 10/14/20 15:59 10/14/20 15:59 10/14/20 15:59 Oxygen Flow Rate (L/min) 2 Oxygen Delivery Method Room Air Weight: 76.799 kg Body Mass Index (BMI) 27.4 Intake and Output for Last 24 Hours 10/12/20 10/13/20 10/14/20 23:59 23:59 23:59 Intake Total 440 / 440 470 / 470 Output Total 300 / 300 Balance 140 / 140 470 / 470 Laboratory Tests Past 24 Hrs 10/14/20 10/14/20 05:32 05:32 WBC 4.3 L RBC 3.76 L Hgb 12.8 L Hct 39.8 L MCV 105.9 H MCH 34.0 H MCHC 32.2 RDW Std Deviation 57.5 H RDW Coeff of Daryl 14.6 Plt Count 49 L* MPV 12.0 Immature Gran % (Auto) 0.200 Neut % (Auto) 58.3 Lymph % (Auto) 22.5 [place] % (Auto) 13.5 H Eos % (Auto) 4.6 Baso % (Auto) 0.9 Absolute Neuts (auto) 2.5 Absolute Lymphs (auto) 0.97 Nucleated RBC % 0 Diff Path Review Reviewed Sodium 144 Potassium 4.0 Chloride 110 H Carbon Dioxide 31.0 Anion Gap 3 L BUN 39 H Creatinine 1.39 H Estim Creat Clear Calc 35.06 Est GFR (MDRD) Af Amer 62 Est GFR (MDRD) Non-Af 52 L BUN/Creatinine Ratio 28.1 H Glucose 99 Calcium 8.2 L Assessment/Plan All Active Problems Hypoxemia (Acute) Debility (Acute) Acute on chronic systolic congestive heart failure (Acute) Acute kidney injury (Acute) Shortness of breath (Acute) COVID-19 (Resolved) 85-year-old male with extensive cardiac history, seen today for initial palliative care consultation regarding shortness of breath and weakness. 1. Weakness: He has had a few hospitalizations last month or 2. Currently in TCU for rehab. We will follow up with the patient once he returns home. 2. Shortness of breath: Multifactorial given significant cardiac history. He is on minimal oxygen supplementation, possibly will need upon discharge to home but that will be reevaluated prior to d/c. Would not recommend oxycodone or Roxanol for treatment of shortness of breath at this point, but will reevaluate as needed. Reminded he will need close watch on his CHF, monitoring weights, edema, etc. We reviewed pathophysiology and treatment plan. 3. Atrial flutter/recent COVID-19 infection/[place]/s/p MVR, s/p CABG BPH/macrocyto sis/leukopenia/thrombocytopenia: Complicates overall care, management, recovery, and prognosis. Patient to follow-up with his specialist once he is discharged from TCU. Plans to have blood work done for [place] [facility] regarding his hematological abnormalities. Defer management to PCP/specialists. Thank you for the opportunity to participate in this patient's care, please do not hesitate to contact [facility] with any further questions or concerns. Palliative direct line is [phone]. We will have RN follow up approximately 3 days after discharge to home and will discuss palliative services further at that time. Greater than 50% of F2F visit dedicated to education and counseling of palliative care services, medications, comorbid conditions and potential assistance with management, and plan of care moving forward. He is agreeable to palliative services once he is discharged from TCU. Start time: 1022 End time: 1137
[2020-10-14] MEDS: Menthol/Lanolin/Calamine/Znox 113 GM Tube 1 APPLIC TOPICAL (17:48)
[2020-10-14] MEDS: MELATONIN 10 MG TABLET PO (19:52)
[2020-10-15 06:00] VITALS: BP 154/85; PULSE 75; RESP 18; TEMP 36.2; O2SAT 98
[2020-10-15] MEDS: Carvedilol 12.5 MG Tablet PO ×2 (06:04→17:19)
[2020-10-15] MEDS: Furosemide 40 MG Tablet PO (06:04)
[2020-10-15] MEDS: Lisinopril 20 MG Tablet PO (06:04)
[2020-10-15] MEDS: Finasteride 5 MG Tablet PO (06:04)
[2020-10-15] MEDS: Menthol/Lanolin/Calamine/Znox 113 GM Tube 1 APPLIC TOPICAL ×2 (06:05→17:20)
[2020-10-15] MEDS: Potassium Chloride Oral Tablet 10 MEQ PO (07:54)
[2020-10-15] MEDS: Rivaroxaban 15 MG Tablet PO (07:54)
[2020-10-15 13:58] VITALS: BP 144/79; PULSE 77; RESP 18; TEMP 36.7; O2SAT 96
--- NOTE | 2020-10-15 17:43 | NURSING ---
pt requested to stop receiving stool softener will ask if he wants something.
[2020-10-15] MEDS: MELATONIN 10 MG TABLET PO (22:55)
[2020-10-16 06:09] VITALS: BP 128/68; PULSE 74; RESP 20; TEMP 36.8; O2SAT 96
[2020-10-16] MEDS: Menthol/Lanolin/Calamine/Znox 113 GM Tube 1 APPLIC TOPICAL ×2 (06:11→17:08)
[2020-10-16] MEDS: Carvedilol 12.5 MG Tablet PO ×2 (06:12→17:08)
[2020-10-16] MEDS: Lisinopril 20 MG Tablet PO (06:12)
[2020-10-16] MEDS: Furosemide 40 MG Tablet PO (06:12)
[2020-10-16] MEDS: Finasteride 5 MG Tablet PO (06:12)
[2020-10-16] MEDS: Acetaminophen 500 MG Tablet 1000 MG PO (07:51)
[2020-10-16] MEDS: Potassium Chloride Oral Tablet 10 MEQ PO (09:30)
[2020-10-16] MEDS: Rivaroxaban 15 MG Tablet PO (09:30)
--- NOTE | 2020-10-16 12:34 | PT ---
Pt's SPO2 was 94-96% at rest before activity. After ambulation, pt's SPO2 decreased to 87% once seated and after 1 min increased to 91%. Pt then was asked to perform repeated sit to stands. After sit to stands, SPO2 decreased to 86% once seated and after 1-2 min of rest, SPO2 increased to 91%. pt was on 2L of O2.
[2020-10-16 13:26] VITALS: BP 128/74; PULSE 74; RESP 16; TEMP 36.4; O2SAT 97
[2020-10-16 14:33] LABS: Bacteria 0 SEEN /hpf (None Seen); Mucous, Urine 0 SEEN /hpf (<or=2+); Red Blood Cells-Urine 0 SEEN /hpf (0-5); Squamous Epithelial Cells - UA 0 SEEN /hpf (0-5); White Blood Cells 0 SEEN /hpf (0-5)
[2020-10-16 14:45] LABS: Color, Urine Yellow (Yellow); Glucose, Dipstick Normal (Normal); Ketone-Dipstick Negative (Negative); Leukocyte Esterase-Dipstick Negative /ul (Negative); Nitrite-Dipstick Negative (Negative); Occult Blood-Urine Negative /ul (Negative); Protein-Dipstick 15 mg/dl (Negative); Specific Gravity, Urine 1.015 (1.002-1.030); Urine Bilirubin Dipstick Negative (Negative); Urine Clarity Clear (Clear); Urine Urobilinogen Normal (Normal)
[2020-10-16 22:10] VITALS: PULSE 76; O2SAT 97
[2020-10-16] MEDS: MELATONIN 10 MG TABLET PO (22:49)
--- NOTE | 2020-10-17 00:05 | CPS ---
RN let MEDICAL NURSE know that patient requested to go on NC 2L O2 for feeling of SOB. Periods of desaturations into the 85-86% on room air was noted by RN. Patient will continue on pulse ox trend with 2L O2.
[2020-10-17] MEDS: Finasteride 5 MG Tablet PO (05:10)
[2020-10-17] MEDS: Lisinopril 20 MG Tablet PO (05:10)
[2020-10-17] MEDS: Furosemide 40 MG Tablet PO (05:10)
[2020-10-17] MEDS: Carvedilol 12.5 MG Tablet PO ×2 (05:10→16:28)
[2020-10-17] MEDS: Menthol/Lanolin/Calamine/Znox 113 GM Tube 1 APPLIC TOPICAL ×2 (05:11→16:27)
[2020-10-17 05:14] VITALS: BP 130/74; PULSE 88; RESP 20; TEMP 37.1; O2SAT 96
[2020-10-17 07:21] VITALS: O2SAT 97
[2020-10-17] MEDS: Rivaroxaban 15 MG Tablet PO (07:53)
[2020-10-17] MEDS: Potassium Chloride Oral Tablet 10 MEQ PO (07:53)
[2020-10-17 08:29] VITALS: O2SAT 96
[2020-10-17 13:42] VITALS: BP 116/68; PULSE 77; RESP 20; TEMP 37.1; O2SAT 96
--- NOTE | 2020-10-17 16:27 | NURSING ---
Warm compress applied to left posterior proximal forearm at this time
[2020-10-17] MEDS: MELATONIN 10 MG TABLET PO (23:03)
[2020-10-18] MEDS: Acetaminophen 500 MG Tablet 1000 MG PO (03:18)
[2020-10-18 06:17] VITALS: BP 116/55; PULSE 75; RESP 18; TEMP 36.7; O2SAT 95
[2020-10-18] MEDS: Carvedilol 12.5 MG Tablet PO ×2 (06:20→17:47)
[2020-10-18] MEDS: Lisinopril 20 MG Tablet PO (06:20)
[2020-10-18] MEDS: Finasteride 5 MG Tablet PO (06:20)
[2020-10-18] MEDS: Furosemide 40 MG Tablet PO (06:20)
[2020-10-18] MEDS: Menthol/Lanolin/Calamine/Znox 113 GM Tube 1 APPLIC TOPICAL ×2 (06:23→17:47)
[2020-10-18] MEDS: Rivaroxaban 15 MG Tablet PO (08:38)
[2020-10-18] MEDS: Potassium Chloride Oral Tablet 10 MEQ PO (08:38)
[2020-10-18 11:07] VITALS: O2SAT 96
[2020-10-18 13:06] VITALS: O2SAT 98
[2020-10-18 14:41] VITALS: BP 127/72; PULSE 76; RESP 16; TEMP 36.6; O2SAT 95
[2020-10-18 20:14] VITALS: PULSE 78; RESP 16; O2SAT 93
[2020-10-18] MEDS: MELATONIN 10 MG TABLET PO (21:53)
[2020-10-19 05:00] VITALS: BP 145/78; PULSE 75; RESP 18; TEMP 36.4; O2SAT 99
[2020-10-19] MEDS: Carvedilol 12.5 MG Tablet PO ×2 (06:30→17:20)
[2020-10-19] MEDS: Menthol/Lanolin/Calamine/Znox 113 GM Tube 1 APPLIC TOPICAL ×2 (06:30→17:20)
[2020-10-19] MEDS: Furosemide 40 MG Tablet PO (06:30)
[2020-10-19] MEDS: Lisinopril 20 MG Tablet PO (06:31)
[2020-10-19] MEDS: Finasteride 5 MG Tablet PO (06:31)
[2020-10-19] MEDS: Potassium Chloride Oral Tablet 10 MEQ PO (08:09)
[2020-10-19] MEDS: Rivaroxaban 15 MG Tablet PO (08:09)
[2020-10-19 10:14] VITALS: PULSE 77; RESP 16; O2SAT 95
[2020-10-19 10:31] VITALS: O2SAT 93
[2020-10-19] MEDS: Acetaminophen 500 MG Tablet 1000 MG PO (14:02)
[2020-10-19 15:18] VITALS: BP 113/64; PULSE 77; RESP 16; TEMP 36.3; O2SAT 95
[2020-10-19] MEDS: MELATONIN 10 MG TABLET PO (23:21)
[2020-10-20 05:00] VITALS: BP 139/76; PULSE 75; RESP 15; TEMP 36.8; O2SAT 97
[2020-10-20] MEDS: Furosemide 40 MG Tablet PO ×2 (05:49→13:30)
[2020-10-20] MEDS: Carvedilol 12.5 MG Tablet PO ×2 (05:49→17:29)
[2020-10-20] MEDS: Lisinopril 20 MG Tablet PO (05:50)
[2020-10-20] MEDS: Finasteride 5 MG Tablet PO (05:50)
[2020-10-20] MEDS: Menthol/Lanolin/Calamine/Znox 113 GM Tube 1 APPLIC TOPICAL ×2 (05:53→17:29)
[2020-10-20] MEDS: Potassium Chloride Oral Tablet 10 MEQ PO ×2 (08:12→17:29)
[2020-10-20] MEDS: Rivaroxaban 15 MG Tablet PO (08:12)
--- NOTE | 2020-10-20 08:17 | NURSING ---
Dr hernandez increased pt lasix d/t increased edema & increased kdur as well, recheck BMP on 10/22
[2020-10-20 09:10] VITALS: O2SAT 95
--- NOTE | 2020-10-20 09:57 | NURSING ---
pt updated on appt with DR Lawson tomorrow @ 8636 for thrombocytopenia.
[2020-10-20] MEDS: Glycerin/Hypromellose/PEG400 15 ml Bottle 2 DRP EACH EYE (10:37)
[2020-10-20 14:31] VITALS: BP 132/76; PULSE 78; RESP 18; TEMP 36.6; O2SAT 95
--- NOTE | 2020-10-20 16:27 | NURSING ---
updated son per pt request
[2020-10-20] MEDS: Doxepin Hydrochloride 10 MG Capsule PO (23:11)
[2020-10-21 06:01] LABS: Absolute Neutrophil Count 2.2 X10^3/uL (2.0-7.7); Basophil# 0.06 X10^3/uL; Basophil% 1.4 % (0-1); Eosinophil# 0.27 X10^3/uL; Eosinophils% 6.1 % (0-5); Hematocrit 37.7 % (40-54); Hemoglobin 12.3 g/dL (13.0-16.5); Lymphocyte % 24.8 % (19-41); Mean Corp Hgb Conc 32.6 g/dL (32-36); Mean Corpuscular Hgb 34.5 pg (27.0-32.0); Mean Corpuscular Volume 105.6 fL (80-94); Mean Platelet Vol. 11.4 fl (6.2-12.0); Monocyte# 0.78 X10^3/uL; Monocyte% 17.6 % (0-10); NRBC Flagged by Analyzer 0 % (0-5); Neutrophil # 2.16 X10^3/uL (2.7-7.7); Neutrophil % 48.5 % (47-70); Platelet Count 119 K/mm3 (150-450); RBC Distribution Width CV 14.2 % (11.6-14.6); RBC Distribution Width SD 54.8 fl (35.1-43.9); Red Blood Count 3.57 M/mm3 (4.6-6.2); White Blood Count 4.4 K/mm3 (4.4-11.0)
[2020-10-21 06:24] VITALS: BP 140/76; PULSE 75; RESP 20; TEMP 36.8; O2SAT 97
[2020-10-21] MEDS: Furosemide 40 MG Tablet PO ×2 (06:27→15:21)
[2020-10-21] MEDS: Menthol/Lanolin/Calamine/Znox 113 GM Tube 1 APPLIC TOPICAL ×2 (06:27→17:15)
[2020-10-21] MEDS: Lisinopril 20 MG Tablet PO (06:28)
[2020-10-21] MEDS: Carvedilol 12.5 MG Tablet PO ×2 (06:28→17:15)
[2020-10-21] MEDS: Finasteride 5 MG Tablet PO (06:28)
[2020-10-21] MEDS: Glycerin/Hypromellose/PEG400 15 ml Bottle 2 DRP EACH EYE (06:32)
[2020-10-21 06:34] LABS: Anion Gap 2 (5-15); BUN 32 mg/dL (7-18); BUN/Creat Ratio 27.1 RATIO (10-20); Calcium,Total 8.8 mg/dL (8.5-10.1); Chloride 106 mmol/L (98-107); Creatinine, Serum 1.18 mg/dL (0.70-1.30); EST Glomerular Filtration Rate 62 mL/min (>60); Est Glom Filt Rate - Afr Amer 75 mL/min (>60); Glucose 86 mg/dL (74-106); Potassium 3.8 mmol/L (3.5-5.1); Sodium Level 140 mmol/L (136-145)
[2020-10-21 07:22] VITALS: O2SAT 96
[2020-10-21] MEDS: Potassium Chloride Oral Tablet 10 MEQ PO ×2 (07:57→17:15)
[2020-10-21] MEDS: Rivaroxaban 15 MG Tablet PO (07:57)
[2020-10-21 10:00] VITALS: PULSE 74; RESP 18; O2SAT 98
--- NOTE | 2020-10-21 10:13 | PT ---
Pt's SPO2 was 94% at rest while on 2L of O2. His SPO2 was 90-91% after ambulation and after activity while on 2L. Pt's SPO2 did not decrease below 90% once seated and rested. Pt was then trialed on room air. His SPO2 decreased to 85% and he was not able to recover to above 90% without 2L of O2.
--- NOTE | 2020-10-21 11:04 | NURSING ---
pt returned from appt with Dr. Lawson, no comments or orders received.
[2020-10-21 14:40] VITALS: BP 151/78; PULSE 77; RESP 15; TEMP 36.6; O2SAT 93
[2020-10-21] MEDS: Tuberculin,Purif.prot.deriv. 50 TU/ML Vial 5 ML ID (15:21)
--- NOTE | 2020-10-21 15:25 | NURSING ---
Spoke with Richmond Bedolla HOME ECONOMICS EXTENSION WORKER with Dr. Blunt's office. pt is to start sacubitril 49mg- valsartan 51mg 1 tablet BID and stop lisinopril. The pt is to wait 2 days after stopping lisinopril before starting the new medication.
--- NOTE | 2020-10-21 20:22 | NURSING ---
Pt sitting up in chair, alert and oriented, pleasant. Requests that meds not be given until 11pm.
[2020-10-21] MEDS: Doxepin Hydrochloride 10 MG Capsule PO (23:22)
[2020-10-22 05:48] LABS: Anion Gap 1 (5-15); BUN 29 mg/dL (7-18); BUN/Creat Ratio 24.8 RATIO (10-20); Calcium,Total 8.5 mg/dL (8.5-10.1); Chloride 103 mmol/L (98-107); Creatinine, Serum 1.17 mg/dL (0.70-1.30); EST Glomerular Filtration Rate 63 mL/min (>60); Est Glom Filt Rate - Afr Amer 76 mL/min (>60); Estimated Creatinine Clearance 41.65 ml/min; Glucose 81 mg/dL (74-106); Potassium 3.7 mmol/L (3.5-5.1); Sodium Level 140 mmol/L (136-145)
[2020-10-22] MEDS: Citalopram 10 MG Tablet PO (05:56)
[2020-10-22] MEDS: Furosemide 40 MG Tablet PO ×2 (05:57→13:39)
[2020-10-22] MEDS: Menthol/Lanolin/Calamine/Znox 113 GM Tube 1 APPLIC TOPICAL ×2 (05:57→16:51)
[2020-10-22] MEDS: Finasteride 5 MG Tablet PO (05:57)
[2020-10-22] MEDS: Carvedilol 12.5 MG Tablet PO ×2 (05:57→16:51)
[2020-10-22 06:00] VITALS: BP 128/79; PULSE 74; RESP 18; TEMP 37.1; O2SAT 95
[2020-10-22 08:00] VITALS: O2SAT 95
[2020-10-22] MEDS: Potassium Chloride Oral Tablet 10 MEQ PO ×2 (08:00→16:51)
[2020-10-22] MEDS: Rivaroxaban 15 MG Tablet PO (08:00)
[2020-10-22 10:00] VITALS: PULSE 87; RESP 14; O2SAT 96
[2020-10-22] MEDS: Glycerin/Hypromellose/PEG400 15 ml Bottle 2 DRP EACH EYE ×2 (10:12→23:33)
--- NOTE | 2020-10-22 10:27 | PT ---
Pt's SPO2 was 90% at rest while on 2L of O2. His SPO2 was 87% after ambulation and after activity while on 2L. Pt needed 2-3 min rest break to recover to 90%. Pt was then trialed on room air. His SPO2 decreased to 81% and he was not able to recover to above 90% without 2L of O2.
--- NOTE | 2020-10-22 13:16 | NURSING ---
pt reports several BMs today, asked this nurse if he is getting stool softeners. checked MAR, none given and explained to pt that they are PRN only. pt verbalized understanding.
[2020-10-22 13:24] VITALS: BP 116/60; PULSE 75; RESP 17; TEMP 36.3; O2SAT 95
--- NOTE | 2020-10-22 14:39 | CASEMGMT ---
Social Work IDT met with patient and two sons via conference call for care plan meeting. Discussed patient's progress in therapy and nursing. Pt progressing well in therapy. Nursing monitoring O2 and changes in heart meds. IDT would like to monitor pt further to ensure medical stabilization prior to setting DC. Explained Medicare benefit. The plan is for pt to return home alone to [facility]. Will order O2 as needed. Pt agreeable to Palliative services at [place] and [facility] referral. started pt on antidepressant to assist with mood. SW to continue to follow. Jeni Snell, BULL LADLE TENDER EDITING CLERK
[2020-10-22] MEDS: Doxepin Hydrochloride 10 MG Capsule PO (23:32)
[2020-10-23 05:00] VITALS: BP 141/78; PULSE 73; RESP 18; TEMP 36.7; O2SAT 92
[2020-10-23] MEDS: Citalopram 10 MG Tablet PO (06:10)
[2020-10-23] MEDS: Carvedilol 12.5 MG Tablet PO ×2 (06:11→17:55)
[2020-10-23] MEDS: Menthol/Lanolin/Calamine/Znox 113 GM Tube 1 APPLIC TOPICAL ×2 (06:11→17:54)
[2020-10-23] MEDS: Furosemide 40 MG Tablet PO ×2 (06:11→13:20)
[2020-10-23] MEDS: Finasteride 5 MG Tablet PO (06:11)
[2020-10-23] MEDS: Rivaroxaban 15 MG Tablet PO (08:31)
[2020-10-23] MEDS: Potassium Chloride Oral Tablet 10 MEQ PO ×2 (08:31→17:54)
[2020-10-23 09:39] VITALS: O2SAT 92
--- NOTE | 2020-10-23 12:34 | MDS.RN ---
Information for the mds was obtained from review of the clinical record, interview of resident, staff, and direct observation of resident's care.
[2020-10-23 13:23] VITALS: PULSE 75; RESP 16; O2SAT 95
[2020-10-23 13:38] VITALS: BP 103/53; PULSE 75; RESP 16; TEMP 36.9; O2SAT 95
[2020-10-23] MEDS: Glycerin/Hypromellose/PEG400 15 ml Bottle 2 DRP EACH EYE (22:09)
[2020-10-23] MEDS: Doxepin Hydrochloride 10 MG Capsule PO (23:11)
[2020-10-24 05:00] VITALS: BP 156/81; PULSE 77; RESP 18; TEMP 36.3; O2SAT 95
[2020-10-24] MEDS: Citalopram 10 MG Tablet PO (06:27)
[2020-10-24] MEDS: Furosemide 40 MG Tablet PO ×2 (06:27→14:40)
[2020-10-24] MEDS: Carvedilol 12.5 MG Tablet PO ×2 (06:27→17:58)
[2020-10-24] MEDS: Finasteride 5 MG Tablet PO (06:27)
[2020-10-24] MEDS: Menthol/Lanolin/Calamine/Znox 113 GM Tube 1 APPLIC TOPICAL ×2 (06:28→18:00)
[2020-10-24] MEDS: Potassium Chloride Oral Tablet 10 MEQ PO ×2 (08:37→17:58)
[2020-10-24] MEDS: Rivaroxaban 15 MG Tablet PO (08:37)
--- NOTE | 2020-10-24 09:13 | PT ---
Pt's SPO2 was 94% at rest while on 2L of O2. After ambulation x 276' without AD, pt's SPO2 decreased to 82% while on 2L of O2. After 2 min of seated rest, pt's SPO2 slowly increased to 91%. RN present in room at this time. Per RN, pt ok to be increased to 3L of O2 with therapy. Pt increased to 3L of O2. After ambulation again his SPO2 decreased to 88% but he was able to recover to 92% quickly once seated. When pt using nustep, his SPO2 decreased to 88% while on 3L but he was able to recover quickly to 92% once rested. Pt returned to room and returned to 2L.
[2020-10-24 13:58] VITALS: BP 137/73; PULSE 75; RESP 18; TEMP 36.8; O2SAT 96
[2020-10-24] MEDS: SACUBITRIL/VALSARTAN 49-51 MG TABLET 1 EACH PO (17:58)
[2020-10-24 18:01] VITALS: BP 121/63; PULSE 81
[2020-10-24 21:00] VITALS: O2SAT 94
--- NOTE | 2020-10-24 21:00 | NURSING ---
While doing assessment, noted to have wheezes and seemed short of breath, pt states he doesn't think he's more short of breath than usual, but did states that he got short of breath today on therapy, POX 94% on 2l.Per PRN order, pt can have aerosols for wheezing, RT called to give.
[2020-10-24 21:33] VITALS: PULSE 80; RESP 20
[2020-10-24] MEDS: Albuterol 2.5 MG/3 ML VIAL.NEB. INHALATION (21:33)
[2020-10-24] MEDS: Doxepin Hydrochloride 10 MG Capsule PO (23:04)
[2020-10-24] MEDS: Glycerin/Hypromellose/PEG400 15 ml Bottle 2 DRP EACH EYE (23:20)
[2020-10-25] MEDS: Furosemide 40 MG Tablet PO ×2 (06:31→14:24)
[2020-10-25] MEDS: SACUBITRIL/VALSARTAN 49-51 MG TABLET 1 EACH PO ×2 (06:31→18:16)
[2020-10-25] MEDS: Carvedilol 12.5 MG Tablet PO ×2 (06:31→18:16)
[2020-10-25] MEDS: Finasteride 5 MG Tablet PO (06:31)
[2020-10-25] MEDS: Citalopram 10 MG Tablet PO (06:31)
[2020-10-25] MEDS: Menthol/Lanolin/Calamine/Znox 113 GM Tube 1 APPLIC TOPICAL ×2 (06:33→18:16)
[2020-10-25 06:34] VITALS: BP 124/70; PULSE 78; RESP 18; TEMP 36.9; O2SAT 92
[2020-10-25 10:00] VITALS: PULSE 73; RESP 18; O2SAT 91
[2020-10-25 11:35] VITALS: O2SAT 93
[2020-10-25] MEDS: Rivaroxaban 15 MG Tablet PO (11:58)
[2020-10-25] MEDS: Potassium Chloride Oral Tablet 10 MEQ PO ×2 (11:58→18:16)
[2020-10-25 14:00] VITALS: BP 117/67; PULSE 75; RESP 20; TEMP 36.1; O2SAT 94
[2020-10-25] MEDS: Glycerin/Hypromellose/PEG400 15 ml Bottle 2 DRP EACH EYE (23:05)
[2020-10-25] MEDS: Doxepin Hydrochloride 10 MG Capsule PO (23:06)
[2020-10-26 06:33] VITALS: BP 116/72; PULSE 76; TEMP 36.7; O2SAT 94
[2020-10-26] MEDS: SACUBITRIL/VALSARTAN 49-51 MG TABLET 1 EACH PO ×2 (06:37→17:51)
[2020-10-26] MEDS: Finasteride 5 MG Tablet PO (06:37)
[2020-10-26] MEDS: Citalopram 10 MG Tablet PO (06:37)
[2020-10-26] MEDS: Glycerin/Hypromellose/PEG400 15 ml Bottle 2 DRP EACH EYE (06:37)
[2020-10-26] MEDS: Menthol/Lanolin/Calamine/Znox 113 GM Tube 1 APPLIC TOPICAL ×2 (06:38→17:52)
[2020-10-26] MEDS: Carvedilol 12.5 MG Tablet PO ×2 (06:38→17:51)
[2020-10-26] MEDS: Furosemide 40 MG Tablet PO ×2 (06:38→13:41)
[2020-10-26 07:24] VITALS: O2SAT 94
[2020-10-26] MEDS: Potassium Chloride Oral Tablet 10 MEQ PO ×2 (08:16→17:52)
[2020-10-26] MEDS: Rivaroxaban 15 MG Tablet PO (08:16)
[2020-10-26 13:34] VITALS: BP 122/70; PULSE 75; RESP 16; TEMP 36.2; O2SAT 95
[2020-10-26] MEDS: Doxepin Hydrochloride 10 MG Capsule PO (22:40)
[2020-10-26 23:00] VITALS: RESP 16
[2020-10-27 05:00] VITALS: BP 142/86; PULSE 78; RESP 16; O2SAT 95
[2020-10-27] MEDS: SACUBITRIL/VALSARTAN 49-51 MG TABLET 1 EACH PO ×2 (06:10→16:44)
[2020-10-27] MEDS: Furosemide 40 MG Tablet PO ×2 (06:10→15:08)
[2020-10-27] MEDS: Finasteride 5 MG Tablet PO (06:10)
[2020-10-27] MEDS: Citalopram 10 MG Tablet PO (06:10)
[2020-10-27] MEDS: Carvedilol 12.5 MG Tablet PO ×2 (06:10→16:44)
[2020-10-27] MEDS: Menthol/Lanolin/Calamine/Znox 113 GM Tube 1 APPLIC TOPICAL ×2 (06:13→16:44)
[2020-10-27 07:21] VITALS: O2SAT 96
[2020-10-27] MEDS: Potassium Chloride Oral Tablet 10 MEQ PO ×2 (08:56→16:44)
[2020-10-27] MEDS: Rivaroxaban 15 MG Tablet PO (08:56)
[2020-10-27 12:13] VITALS: PULSE 75; RESP 16; O2SAT 95
[2020-10-27 14:30] VITALS: BP 122/66; PULSE 78; RESP 18; TEMP 36.9; O2SAT 96
--- NOTE | 2020-10-27 15:14 | PT ---
Pt is I for sit to stands and transfers without AD. Pt's SPO2 was 94% at rest while on 3L of O2. After ambulation x 300' without AD, pt's SPO2 decreased to 87% while on 3L of O2. After 2 min of seated rest, pt's SPO2 slowly increased to 92%.
--- NOTE | 2020-10-27 16:57 | CHAPLAIN ---
Type of Pastoral Visit ___ Initial Visit _x__ Follow-up Visit ___ On-call Visit ___ General Patient Visit ___ Spiritual Assessment ___ Family Conference ___ Bereavement ___ Rapid Response ___ Code Blue ___ Other (describe below) Pastoral Care Referral From _x__ Patient ___ Family ___ Nurse ___ Physician ___ Tire Retreader ___ Radiosonde Specialist ___ Other (describe below) Sacrament/Intervention _x__ Active listening ___ Anointing ___ Jainism ___ Bereavement ___ Communion _x__ Sandrine exploration ___ _x__ Life review _x__ Prayer ___ Reconciliation ___ Sacrament of Sick _x__ Supportive presence ___ Wedding ___ Other (describe below) Pastoral Comments
[2020-10-27] MEDS: Doxepin Hydrochloride 10 MG Capsule PO (23:26)
[2020-10-28 06:07] LABS: Absolute Neutrophil Count 2.7 X10^3/uL (2.0-7.7); Basophil# 0.08 X10^3/uL; Basophil% 1.6 % (0-1); Eosinophil# 0.23 X10^3/uL; Eosinophils% 4.5 % (0-5); Hemoglobin 11.7 g/dL (13.0-16.5); Lymphocyte % 21.3 % (19-41); Mean Corp Hgb Conc 30.8 g/dL (32-36); Mean Corpuscular Hgb 32.8 pg (27.0-32.0); Mean Corpuscular Volume 106.4 fL (80-94); Mean Platelet Vol. 10.7 fl (6.2-12.0); Monocyte% 19.4 % (0-10); NRBC Flagged by Analyzer 0 % (0-5); Neutrophil # 2.71 X10^3/uL (2.7-7.7); Neutrophil % 52.4 % (47-70); Platelet Count 183 K/mm3 (150-450); RBC Distribution Width CV 14.1 % (11.6-14.6); RBC Distribution Width SD 55.2 fl (35.1-43.9); Red Blood Count 3.57 M/mm3 (4.6-6.2); White Blood Count 5.2 K/mm3 (4.4-11.0)
[2020-10-28 06:32] LABS: Anion Gap 0 (5-15); BUN 31 mg/dL (7-18); BUN/Creat Ratio 24.2 RATIO (10-20); Calcium,Total 8.6 mg/dL (8.5-10.1); Chloride 105 mmol/L (98-107); Creatinine, Serum 1.28 mg/dL (0.70-1.30); EST Glomerular Filtration Rate 57 mL/min (>60); Est Glom Filt Rate - Afr Amer 69 mL/min (>60); Estimated Creatinine Clearance 38.08 ml/min; Glucose 85 mg/dL (74-106); Potassium 3.8 mmol/L (3.5-5.1); Sodium Level 141 mmol/L (136-145)
[2020-10-28 06:43] VITALS: BP 129/72; PULSE 75; RESP 18; TEMP 36.4; O2SAT 96
[2020-10-28] MEDS: Finasteride 5 MG Tablet PO (06:47)
[2020-10-28] MEDS: Menthol/Lanolin/Calamine/Znox 113 GM Tube 1 APPLIC TOPICAL ×2 (06:48→18:00)
[2020-10-28] MEDS: Carvedilol 12.5 MG Tablet PO ×2 (06:48→18:00)
[2020-10-28] MEDS: Citalopram 10 MG Tablet PO (06:48)
[2020-10-28] MEDS: Furosemide 40 MG Tablet PO ×2 (06:48→14:28)
[2020-10-28] MEDS: SACUBITRIL/VALSARTAN 49-51 MG TABLET 1 EACH PO ×2 (06:48→17:59)
[2020-10-28] MEDS: Glycerin/Hypromellose/PEG400 15 ml Bottle 2 DRP EACH EYE ×2 (06:51→22:53)
[2020-10-28 08:05] VITALS: O2SAT 95
[2020-10-28] MEDS: Rivaroxaban 15 MG Tablet PO (08:34)
[2020-10-28] MEDS: Potassium Chloride Oral Tablet 10 MEQ PO ×2 (08:35→18:00)
[2020-10-28 14:02] VITALS: BP 112/64; PULSE 72; RESP 18; TEMP 36.3; O2SAT 98
--- NOTE | 2020-10-28 14:58 | CASEMGMT ---
Social Work Spoke with pt about DC plans. IDT set DC date 11/01. Pt agreeable. Pt will return to [facility] for continued exercise. Pt remains agreeable to [facility] and [facility]. Notified both of DC. Referred to [employer] for new O2, 3L upon exertion, 2L at rest. Pt will have family transport him home to [facility]. Plan: DC home to [facility] with CCN and Palliative, [employer] - new O2 Jeni Snell, GREIGE GOODS MARKER MANAGER BUSINESS PLANNING
[2020-10-28 22:45] VITALS: PULSE 74; RESP 18; O2SAT 94
[2020-10-28] MEDS: Doxepin Hydrochloride 10 MG Capsule PO (22:53)
[2020-10-29 05:00] VITALS: BP 132/89; PULSE 76; RESP 20; TEMP 36.6; O2SAT 95
[2020-10-29] MEDS: SACUBITRIL/VALSARTAN 49-51 MG TABLET 1 EACH PO ×2 (06:59→16:51)
[2020-10-29] MEDS: Furosemide 40 MG Tablet PO ×2 (07:00→12:59)
[2020-10-29] MEDS: Carvedilol 12.5 MG Tablet PO ×2 (07:00→16:52)
[2020-10-29] MEDS: Finasteride 5 MG Tablet PO (07:00)
[2020-10-29] MEDS: Menthol/Lanolin/Calamine/Znox 113 GM Tube 1 APPLIC TOPICAL ×2 (07:00→16:52)
[2020-10-29] MEDS: Citalopram 10 MG Tablet PO (07:00)
[2020-10-29 07:06] VITALS: O2SAT 90
[2020-10-29] MEDS: Potassium Chloride Oral Tablet 10 MEQ PO ×2 (08:37→16:51)
[2020-10-29] MEDS: Rivaroxaban 15 MG Tablet PO (08:37)
[2020-10-29] MEDS: Glycerin/Hypromellose/PEG400 15 ml Bottle 2 DRP EACH EYE ×2 (08:37→22:57)
[2020-10-29 13:48] VITALS: BP 133/72; PULSE 74; RESP 17; TEMP 36.7; O2SAT 95
[2020-10-29] MEDS: Doxepin Hydrochloride 10 MG Capsule PO (22:57)
[2020-10-30 04:15] VITALS: BP 110/72; PULSE 75; RESP 18; TEMP 36.7; O2SAT 95
[2020-10-30] MEDS: SACUBITRIL/VALSARTAN 49-51 MG TABLET 1 EACH PO ×2 (04:17→18:40)
[2020-10-30] MEDS: Furosemide 40 MG Tablet PO ×2 (04:17→12:39)
[2020-10-30] MEDS: Finasteride 5 MG Tablet PO (04:17)
[2020-10-30] MEDS: Carvedilol 12.5 MG Tablet PO ×2 (04:17→18:40)
[2020-10-30] MEDS: Citalopram 10 MG Tablet PO (04:17)
[2020-10-30] MEDS: Menthol/Lanolin/Calamine/Znox 113 GM Tube 1 APPLIC TOPICAL ×2 (04:19→18:40)
[2020-10-30] MEDS: Potassium Chloride Oral Tablet 10 MEQ PO ×2 (08:23→18:40)
[2020-10-30] MEDS: Rivaroxaban 15 MG Tablet PO (08:23)
--- NOTE | 2020-10-30 14:29 | MDS.RN ---
Completed pain interview for balta 11/01/20
--- NOTE | 2020-10-30 18:55 | NURSING ---
Patient sitting in chair with 2L O2 SPO2 is 97% Patient walking to door and back with 2L O2 SPO2 is 94% Patient sitting in chair on Room Air SPO2 is 88%. 2L O2 reapplied to bring O2 back up to SPO2 97% Patient walking to door and back on Room Air SPO2 is 90%. 2L O2 reapplied after activity.
[2020-10-30 19:13] VITALS: BP 114/74; PULSE 73; RESP 16; TEMP 36.8; O2SAT 98
[2020-10-30] MEDS: Doxepin Hydrochloride 10 MG Capsule PO (22:50)
[2020-10-30] MEDS: Glycerin/Hypromellose/PEG400 15 ml Bottle 2 DRP EACH EYE (22:50)
[2020-10-31 05:00] VITALS: BP 135/72; PULSE 72; RESP 18; TEMP 37; O2SAT 95
[2020-10-31] MEDS: Carvedilol 12.5 MG Tablet PO ×2 (05:18→16:35)
[2020-10-31] MEDS: Finasteride 5 MG Tablet PO (05:18)
[2020-10-31] MEDS: Furosemide 40 MG Tablet PO ×2 (05:18→13:33)
[2020-10-31] MEDS: Citalopram 10 MG Tablet PO (05:18)
[2020-10-31] MEDS: Menthol/Lanolin/Calamine/Znox 113 GM Tube 1 APPLIC TOPICAL ×2 (05:19→16:01)
[2020-10-31] MEDS: SACUBITRIL/VALSARTAN 49-51 MG TABLET 1 EACH PO ×2 (05:19→16:36)
[2020-10-31 08:00] VITALS: O2SAT 93
[2020-10-31] MEDS: Potassium Chloride Oral Tablet 10 MEQ PO ×2 (08:28→16:01)
[2020-10-31] MEDS: Rivaroxaban 15 MG Tablet PO (08:28)
[2020-10-31 11:08] VITALS: PULSE 72; RESP 16; O2SAT 98
--- NOTE | 2020-10-31 11:55 | CASEMGMT ---
Social Work BIMS and PHQ-9 completed for MDS assessment. Jeni Snell, ROLL OFF DRIVER MACHINE BUILDER
[2020-10-31 12:30] VITALS: O2SAT 93
--- NOTE | 2020-10-31 14:32 | PCM.TXEXTCAR ---
- Diet 10/13/20 14:45 Diet: Cardiac - Heart Healthy Food consistency:: Regular Liquid Consistency:: Regular/Thin Is pt able to select menu?: Yes Fluid restriction:: 1500 mL - Routine Orders/Code Status Code Status: Full Code - Wound(s) Right elbow Wound Type: scab Right forearm Wound Type: Skin Tear Dressing Change: 2x2 Right Lower lip Wound Type: scab Left posterior lower leg Wound Type: scab Right cheek Wound Type: scabs - Allergies/Procedures Done in Hospital Allergies/Adverse Reactions: Allergies ofloxacin [From Floxin] Allergy (Verified 10/21/20 13:21) migraine diphenhydramine [From Benadryl] Adverse Reaction (Verified 10/21/20 13:21) shuts off my urine - Dietary and Speech Recommendations Dietitian Recommendations/Changes: continue cardiac diet and fluid restriction as indicated. - Follow Up Care Primary Care Physician: Prabhu Vee MD [Primary Care Provider] - Please follow up with your Primary Care Physician in: Prabhu Vee Please Follow Up With: Merlene (will see Richmond Bedolla CHILD CARE EDUCATION COORDINATOR-C) & Brigitte Carbone RN When: 11/10/20 Please Follow Up With: Noe Lawson MD When: [phone]
--- NOTE | 2020-10-31 14:56 | DCINST_ITS ---
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) Debility (Acute) Acute on chronic systolic congestive heart failure (Acute) Acute kidney injury (Acute) COVID-19 (Chronic) Benign prostatic hyperplasia (Chronic) Shortness of breath (Acute) You will use the following diet at home:: Cardiac - low salt and low fat, Fluid restricted (specify 2000 mls, 1500 mls) - 1500 Your food should be the consistency of: Regular Your liquids should be the consistency of: Regular/Thin Discharge Activity: Return to Normal Activity Weight Bearing Status: Full weight bearing Keep extremity elevated above heart level: Legs Call your doctor if you observe: Fever of 101 or Higher, Inability to urinate, Inability to have a bowel movement, Shortness of breath, Dizziness, Fainting spells, Swelling in the ankles, Chest pain, Increased palpitations (irregular heartbeat), Calf discomfort, Uncontrolled pain Instructions: ED Heart Failure, Congestive (CHF), Low-Salt Choices, Eating a Low-Salt Diet Additional Instructions: 1. Always wear your oxygen when you are eating, sleeping and exercising. If you are sitting in your chair watching TV or reading, etc and you do not feel short of breath you can take the oxygen off. If you are short of breath you should always be wearing the oxygen. The pulse ox (oxygen saturation) should always be at least 90%.....if it is below 90 put the oxygen on. 2. A normal heart squeezes 55 to 65% of the blood out of the heart each time it contracts. Your heart is weakened and it squeezes 30% of the blood out of the heart when it contracts. You are on medications to help your heart pump stronger to keep you out of CHF (congestive heart failure). Salt restriction is VERY IMPORTANT when your heart is weak. The more salt you eat the more water your kidney/body will absorb and then you will go into heart failure. One of the best ways to tell if you are retaining water is to weigh yourself daily in the AM after urinating with no clothes on. Keep a record of the weights. If your weight is increasing a pound or 2 a day you are retaining fluid. By the time you see swelling in the legs you will have gained about 4 1/2 pounds. One of the first signs you are retaining fluid is your weight will start increasing. Before you ever notice swelling in the legs your weight will have increased about 4 and 1/2 pounds. If this is addressed early then you can prevent admissions to the hospital for congestive heart failure. Buy a good scale. Weigh yourself daily in the AM after urinating with no clothes on and keep a record. If your weight increases by 5 pounds or more in 1 week then you are retaining fluid. Cut back on salt intake and fluids and call your PCP or reading recovery teacher for instructions on what to do with the Lasix to get the weight back down. 3. If you think you are having a side effect to one of the medications do not stop it........call your doctor and ask what you should do. 4. Exercise is very important to keep the heart from getting weaker. If you get short of breath exercising then stop and rest for a little while before you start again. 5. It was a pleasure to meet you Ray. Good luck to you and stay well. 6. You should be seeing your PCP in the next 7-10 days and You should have some lab work done at that visit to check the potassium and the renal function. Allergies/Adverse Reactions: Allergies ofloxacin [From Floxin] Allergy (Verified 10/21/20 13:21) migraine diphenhydramine [From Benadryl] Adverse Reaction (Verified 10/21/20 13:21) shuts off my urine Medications to take at Discharge Finasteride 5 mg PO DAILY 09/22/20 Rivaroxaban [Xarelto] 15 mg PO DAILY 10/13/20 Bisacodyl [Dulcolax] 5 mg PO DAILY PRN 10/21/20 Magnesium Hydroxide [Milk Of Magnesia] 30 ml PO DAILY PRN PRN 10/21/20 Menthol/Lanolin/Calamine/Znox [Calmoseptine Ointment] 1 applic TOPICAL BID 10/21/20 Peg 400/Hypromellose/Glycerin [Artificial Tears] 2 drp EACH EYE PRN PRN 10/21/20 Polyethylene Glycol 3350 [Miralax] 17 gm PO DAILY PRN 10/21/20 Sennosides/Docusate Sodium [Docusate Sodium-Senna Tablet] 1 each PO DAILY PRN 10/21/20 furosemide 40 mg tablet 40 mg PO BID tablet 10/21/20 sacubitril 49 mg-valsartan 51 mg tablet 1 tablet PO BID #60 tablet 10/21/20 Acetaminophen [Tylenol] 650 mg PO Q6H PRN PRN tablet 10/31/20 Carvedilol [Coreg (Beta Latoya)] 12.5 mg PO BID #60 tablet 10/31/20 Citalopram [Celexa] 10 mg PO DAILY #30 tablet 10/31/20 Doxepin HCl 3 mg PO QHS #30 tablet 10/31/20 Furosemide [Lasix] 40 mg PO 0600,1400 #60 tablet 10/31/20 Potassium Chloride Oral Tablet [K-Dur] 10 meq PO BIDCM #60 tablet 10/31/20 Sacubitril/Valsartan 49-51 mg [Entresto 49 mg-51 mg Tablet] 1 each PO BID #60 tablet 10/31/20 The following prescriptions were given: Citalopram [Celexa] 10 mg PO DAILY #30 tablet Transmission Status: Pending to [facility] Carvedilol [Coreg (Beta Latoya)] 12.5 mg PO BID #60 tablet Transmission Status: Pending to [facility] Doxepin HCl 3 mg PO QHS #30 tablet Transmission Status: Pending to [facility] Sacubitril/Valsartan 49-51 mg [Entresto 49 mg-51 mg Tablet] 1 each PO BID #60 tablet Transmission Status: Pending to [facility] Potassium Chloride Oral Tablet [K-Dur] 10 meq PO BIDCM #60 tablet Transmission Status: Pending to [facility] Furosemide [Lasix] 40 mg PO 0600,1400 #60 tablet Transmission Status: Pending to [facility] Primary Care Physician: Prabhu Vee MD [Primary Care Provider] - Please follow up with your Primary Care Physician in: Prabhu Vee Test Results: Test results from this visit will be discussed in further detail at your follow- up appointment, if applicable. Please Follow Up With: Merlene (will see DYANA ContrerasC) & Brigitte Carbone RN When: 11/10/20 Please Follow Up With: Noe Lawson MD When: [phone] Proposed Discharge Date: 10/31/20
[2020-10-31 15:02] VITALS: BP 103/63; PULSE 72; RESP 16; TEMP 36.7; O2SAT 98
--- NOTE | 2020-10-31 15:34 | DS.PCM_ITS ---
Discharge Date and Diagnosis - Problem List Patient Problems: Active and Suspected Problems (Last Updated 10/21/20 @ 10:28 by Katerina Lyn RN) Hypoxemia (Acute) Debility (Acute) Acute on chronic systolic congestive heart failure (Acute) Date of Admission: 10/14/20 Date of Discharge: 11/01/20 - Primary Discharge Diagnosis Acute Problems: Active Problems (Last Updated 10/21/20 @ 10:28 by Katerina Lyn RN) Hypoxemia (Acute) Debility (Acute) Acute on chronic systolic congestive heart failure (Acute) Acute macrocytic anemia Metabolic alkalosis-suspect secondary to intravascular volume depletion related to increase in Lasix to twice daily - Secondary Discharge Diagnosis Chronic Problems: Chronic Problems (Last Updated 10/21/20 @ 10:28 by Katerina Lyn RN) Ischemic cardiomyopathy (Chronic) with a 30% EF Biatrial enlargement (Chronic) CAD (coronary artery disease) (Chronic) Atrial flutter (Chronic) S/P CABG (coronary artery bypass graft) (Chronic) S/P MVR (mitral valve replacement) (Chronic) ICD (implantable cardioverter-defibrillator) in place (Chronic) Thrombocytopenia (Chronic) - resolved prior to DC from TCU Leukopenia (Chronic) - resolved in TCU Macrocytosis (Chronic) Biventricular heart failure (Chronic) Benign prostatic hyperplasia (Chronic) Hospital Course and Treatment Imaging Results: Laboratory Last Values WBC 5.2 K/mm3 (4.4-11.0) 10/28/20 05:45 RBC 3.57 M/mm3 (4.6-6.2) L 10/28/20 05:45 Hgb 11.7 g/dL (13.0-16.5) L 10/28/20 05:45 Hct 38.0 % (40-54) L 10/28/20 05:45 MCV 106.4 fL (80-94) H 10/28/20 05:45 MCH 32.8 pg (27.0-32.0) H 10/28/20 05:45 MCHC 30.8 g/dL (32-36) L 10/28/20 05:45 RDW Std Deviation 55.2 fl (35.1-43.9) H 10/28/20 05:45 RDW Coeff of Daryl 14.1 % (11.6-14.6) 10/28/20 05:45 Plt Count 183 K/mm3 (150-450) 10/28/20 05:45 MPV 10.7 fl (6.2-12.0) 10/28/20 05:45 Immature Gran % (Auto) 0.800 % (0.0-0.9) 10/28/20 05:45 Neut % (Auto) 52.4 % (47-70) 10/28/20 05:45 Lymph % (Auto) 21.3 % (19-41) 10/28/20 05:45 [place] % (Auto) 19.4 % (0-10) H 10/28/20 05:45 Eos % (Auto) 4.5 % (0-5) 10/28/20 05:45 Baso % (Auto) 1.6 % (0-1) H 10/28/20 05:45 Absolute Neuts (auto) 2.7 X10^3/uL (2.0-7.7) 10/28/20 05:45 Absolute Lymphs (auto) 1.10 X10^3/uL (0.83-4.51) 10/28/20 05:45 Nucleated RBC % 0 % (0-5) 10/28/20 05:45 Diff Path Review Reviewed 10/14/20 05:32 Sodium 141 mmol/L (136-145) 10/28/20 05:45 Potassium 3.8 mmol/L (3.5-5.1) 10/28/20 05:45 Chloride 105 mmol/L (98-107) 10/28/20 05:45 Carbon Dioxide 36.0 mmol/L (21.0-32.0) H 10/28/20 05:45 Anion Gap 0 (5-15) L 10/28/20 05:45 BUN 31 mg/dL (7-18) H 10/28/20 05:45 Creatinine 1.28 mg/dL (0.70-1.30) 10/28/20 05:45 Estim Creat Clear Calc 38.08 ml/min 10/28/20 05:45 Est GFR (MDRD) Af Amer 69 mL/min (>60) 10/28/20 05:45 Est GFR (MDRD) Non-Af 57 mL/min (>60) L 10/28/20 05:45 BUN/Creatinine Ratio 24.2 RATIO (10-20) H 10/28/20 05:45 Glucose 85 mg/dL (74-106) 10/28/20 05:45 Calcium 8.6 mg/dL (8.5-10.1) 10/28/20 05:45 Urine Color Yellow (Yellow) 10/15/20 12:12 Urine Clarity Clear (Clear) 10/15/20 12:12 Urine pH 6.0 (5.0 - 8.0) 10/15/20 12:12 Ur Specific [place] 1.015 (1.002-1.030) 10/15/20 12:12 Urine Protein 15 mg/dl (Negative) H 10/15/20 12:12 Urine Glucose (UA) Normal mg/dl (Normal) 10/15/20 12:12 Urine Ketones Negative mg/dl (Negative) 10/15/20 12:12 Urine Occult Blood Negative /ul (Negative) 10/15/20 12:12 Urine Nitrite Negative (Negative) 10/15/20 12:12 Urine Bilirubin Negative mg/dL (Negative) 10/15/20 12:12 Urine Urobilinogen Normal mg/dl (Normal) 10/15/20 12:12 Ur Leukocyte Esterase Negative /ul (Negative) 10/15/20 12:12 Urine RBC 0 SEEN /hpf (0-5) 10/15/20 12:12 Urine WBC 0 SEEN /hpf (0-5) 10/15/20 12:12 Ur Squamous Epith Cells 0 SEEN /hpf (0-5) 10/15/20 12:12 Urine Bacteria 0 SEEN /hpf (None Seen) 10/15/20 12:12 Urine Mucus 0 SEEN /hpf (<or=2+) 10/15/20 12:12 Microbiology 10/15/20 12:12 Urine, Clean Catch Urine Culture - Final Mixed Gram Positive Organisms none Operations: None Procedures: None Summary of Care Provided: Samson Le is a 85 year old M with a past medical history of chronic systolic congestive heart failure, coronary artery disease, history of CABG x4 vessels in 2006 a repeat CABG and bioprosthetic mitral valve replacement in 2016 or 2017, AICD placement in 2011, COVID-19 infection in early September 2020, ischemic cardiomyopathy with a 30% ejection fraction and moderately severe segmental wall motion abnormalities, dilated right ventricle with moderate global right ventricular systolic dysfunction, biatrial enlargement, moderate TR, moderate pulmonary hypertension with recent right ventricular systolic pressure estimated at 54 mmHg, chronic macrocytosis and thrombocytopenia since the COVID infection who was admitted to [facility] on 10/10/2020 with complaints of shortness of breath for the preceding 2 weeks associated with orthopnea, paroxysmal nocturnal dyspnea, bilateral leg edema and a weight gain of approximately 7 pounds. Lasix was increased as an outpatient by his primary care physician however the symptoms persisted. EKG in the emergency department showed atrial flutter with 3-1 conduction. BNP was elevated at 657. He was admitted to the hospital with a diagnosis of acute respiratory insufficiency in [place] to acute on chronic systolic congestive heart failure due to ischemic cardiomyopathy. He was seen by [facility] and placed on a Lasix drip and did very well with improvement in the edema and the SOB. With diuresis he developed a metabolic alkalosis which is likely due to volume contraction. He was transferred to TCU on 10/13/2020 for strengthening/rehabilitation prior to returning to his assisted living situation. He lives by himself. Prior to discharge Ray could do the tug test in 9.4 seconds without an assistive device which is exceptional for someone his age. He was able to ambulate 600 feet without an assistive device with no loss of balance and no dyspnea on exertion. He was actually discharged from occupational therapy on 10/27/2020 because he was independent with bathing, dressing, grooming, eating and toilet transfer. He was discharged to [facility] on 11/01/2020 and will follow up with his primary care physician, Dr. Prabhu Vee, in 7 to 10 days post discharge. He will also follow-up with Dr. Blunt and Dr. Noe Lawson. Alert, oriented x3, appropriate, appears comfortable sitting in the recliner chair at the bedside. Mucous membranes are moist The neck is supple with no lymphadenopathy Lungs-clear to auscultation throughout with good air exchange. Heart-regular rate and rhythm, no murmur, no gallop Abdominal-soft, nontender, nondistended, no guarding with palpation, normal bowel sounds No calf pain No significant peripheral edema No rashes and no skin breakdown This note was generated with MUBIation software. It may contain incorrect words, spelling, and punctuation that were not noted in checking the note before signing. [] Patient Problems: Active and Suspected Problems (Last Updated 10/21/20 @ 10:28 by Katerina Lyn RN) Hypoxemia (Acute) Debility (Acute) Acute on chronic systolic congestive heart failure (Acute) - Physical Exam Vitals/I&O's: Vital Signs Temp Pulse Resp BP Pulse Ox 98.0 F 72 16 103/63 98 10/31/20 15:02 10/31/20 15:02 10/31/20 15:02 10/31/20 15:02 10/31/20 15:02 Oxygen Flow Rate (L/min) 3 Oxygen Delivery Method Room Air Weight: 168 lb 14.4 oz Body Mass Index (BMI) 27.4 Intake and Output for Last 24 Hours 10/29/20 10/30/20 10/31/20 23:59 23:59 23:59 Intake Total 720 / 720 320 / 320 360 / 360 Output Total 300 / 300 850 / 850 150 / 150 Balance 420 / 420 -530 / -530 210 / 210 Current Medications Acetaminophen (Acetaminophen 500 Mg Tablet) 1,000 mg PO Q6H PRN PRN PRN Reason: Pain Score 1-10 Last Admin: 10/19/20 14:02 Dose: 1,000 mg Documented by: Albuterol Sulfate (Albuterol 2.5 Mg/3 Ml Vial.Neb.) 2.5 mg INHALATION Q4H PRN PRN PRN Reason: WHEEZING Last Admin: 10/24/20 21:33 Dose: 2.5 mg Documented by: Bisacodyl (Bisacodyl 5 Mg Tablet) 10 mg PO DAILY PRN PRN Reason: Constipation Calamine/Phenol (Menthol/Lanolin/Calamine/Znox 113 Gm Tube) 1 applic TOPICAL BID [facility]; Protocol Last Admin: 10/31/20 05:19 Dose: 1 applic Documented by: Carvedilol (Carvedilol 12.5 Mg Tablet) 12.5 mg PO BID [facility] Last Admin: 10/31/20 05:18 Dose: 12.5 mg Documented by: Citalopram Hydrobromide (Citalopram 10 Mg Tablet) 10 mg PO DAILY [facility] Last Admin: 10/31/20 05:18 Dose: 10 mg Documented by: Doxepin HCl (Doxepin Hydrochloride 10 Mg Capsule) 10 mg PO QHS [facility] Last Admin: 10/30/20 22:50 Dose: 10 mg Documented by: Finasteride (Finasteride 5 Mg Tablet) 5 mg PO DAILY [facility] Last Admin: 10/31/20 05:18 Dose: 5 mg Documented by: Furosemide (Furosemide 40 Mg Tablet) 40 mg PO 0600,1400 [facility] Last Admin: 10/31/20 13:33 Dose: 40 mg Documented by: Magnesium Hydroxide (Magnesium Hydroxide 30 Ml Udc) 30 ml PO DAILY PRN PRN Reason: Constipation Polyethylene Glycol (Polyethylene Glycol 3350 17 Gm Packet) 17 gm PO DAILY PRN PRN PRN Reason: Constipation Potassium Chloride (Potassium Ch[facility]ide [facility] 10 Meq) [facility] Admin: 10/31/20 08:28 Dose: 10 meq Documented by: Rivaroxaban (Rivaroxaban 15 Mg Tablet) [facility] Last Admin: 10/31/20 08:28 Dose: 15 mg Documented by: Sacubitril/Valsartan (Sacubitril/Valsartan 49-51 Mg Tablet) 1 each PO BID [facility] Last Admin: 10/31/20 05:19 Dose: 1 each Documented by: Senna/Docusate Sodium (Senna/Docusate Sodium 1 Tablet) 1 tablet PO DAILY PRN PRN PRN Reason: Constipation Sodium Chloride (0.9% Saline Lock 10 Ml Syringe) 10 - 40 ml IV UD PRN PRN Reason: SALINE FLUSH Last Admin: 10/14/20 06:48 Dose: 10 ml Documented by: Discharge Activity: Return to Normal Activity Weight Bearing Status: Full weight bearing Keep extremity elevated above heart level: Legs Call your doctor if you observe: Fever of 101 or Higher, Inability to urinate, Inability to have a bowel movement, Shortness of breath, Dizziness, Fainting spells, Swelling in the ankles, Chest pain, Increased palpitations (irregular heartbeat), Calf discomfort, Uncontrolled pain Home Medications: Medications to take at Discharge Finasteride 5 mg PO DAILY 09/22/20 Rivaroxaban [Xarelto] 15 mg PO DAILY 10/13/20 Bisacodyl [Dulcolax] 5 mg PO DAILY PRN 10/21/20 Magnesium Hydroxide [Milk Of Magnesia] 30 ml PO DAILY PRN PRN 10/21/20 Menthol/Lanolin/Calamine/Znox [Calmoseptine Ointment] 1 applic TOPICAL BID 10/21 Peg 400/Hypromellose/Glycerin [Artificial Tears] 2 drp EACH EYE PRN PRN 10/21/20 Polyethylene Glycol 3350 [Miralax] 17 gm PO DAILY PRN 10/21/20 Sennosides/Docusate Sodium [Docusate Sodium-Senna Tablet] 1 each PO DAILY PRN 10/21/20 furosemide 40 mg tablet 40 mg PO BID tablet 10/21/20 sacubitril 49 mg-valsartan 51 mg tablet 1 tablet PO BID #60 tablet 10/21/20 Acetaminophen [Tylenol] 650 mg PO Q6H PRN PRN tablet 10/31/20 Carvedilol [Coreg (Beta Latoya)] 12.5 mg PO BID #60 tablet 10/31/20 Citalopram [Celexa] 10 mg PO DAILY #30 tablet 10/31/20 Doxepin HCl 3 mg PO QHS #30 tablet 10/31/20 Furosemide [Lasix] 40 mg PO 0600,1400 #60 tablet 10/31/20 Potassium Chloride Oral Tablet [K-Dur] 10 meq PO BIDCM #60 tablet 10/31/20 Sacubitril/Valsartan 49-51 mg [Entresto 49 mg-51 mg Tablet] 1 each PO BID #60 tablet 10/31/20 Following Prescriptions Were Given to Patient: Citalopram [Celexa] 10 mg PO DAILY #30 tablet Transmission Status: Received by [address] Carvedilol [Coreg (Beta Latoya)] 12.5 mg PO BID #60 tablet Transmission Status: Received by [facility] [employer] Doxepin HCl 3 mg PO QHS #30 tablet Transmission Status: Received by [address] Sacubitril/Valsartan 49-51 mg [Entresto 49 mg-51 mg Tablet] 1 each PO BID #60 tablet Transmission Status: Received by [address] Potassium Chloride Oral Tablet [K-Dur] 10 meq PO BIDCM #60 tablet Transmission Status: Received by [address] Furosemide [Lasix] 40 mg PO 0600,1400 #60 tablet Transmission Status: Received by [address] Primary Care Physician: Prabhu Vee MD [Primary Care Provider] - Please follow up with your Primary Care Physician in: Prabhu Vee Please Follow Up With: Merlene (will see DYANA oCntrerasC) & Brigitte Carbone RN When: 11/10/20 Please Follow Up With: Noe Lawson MD When: [phone] Patient Instructions: Low-Salt Choices, Eating a Low-Salt Diet, ED Heart Failure, Congestive (CHF) Disposition: Asstd Living/Non-Skill ID Minutes spent on discharge:: 35 Patient Condition:: Good Medical Necessity - Tobacco Use Smoking Status: Former smoker Tobacco Use: Non-smoker Meaningful Use Info Meaningful Use Diagnoses (Choose all that apply): CHF - CHF KEVIN/ARB ordered at discharge?: Yes Documented LVEF (%): 30 Inpatient E&M: 32872 Disch Hosp
[2020-10-31] MEDS: Doxepin Hydrochloride 10 MG Capsule PO (23:01)
[2020-10-31] MEDS: Glycerin/Hypromellose/PEG400 15 ml Bottle 2 DRP EACH EYE (23:09)
[2020-11-01 07:04] VITALS: BP 139/71; PULSE 73; RESP 20; TEMP 36.4; O2SAT 96
[2020-11-01] MEDS: Menthol/Lanolin/Calamine/Znox 113 GM Tube 1 APPLIC TOPICAL (07:06)
[2020-11-01] MEDS: Rivaroxaban 15 MG Tablet PO (07:07)
[2020-11-01] MEDS: SACUBITRIL/VALSARTAN 49-51 MG TABLET 1 EACH PO (07:07)
[2020-11-01] MEDS: Finasteride 5 MG Tablet PO (07:07)
[2020-11-01] MEDS: Carvedilol 12.5 MG Tablet PO (07:07)
[2020-11-01] MEDS: Citalopram 10 MG Tablet PO (07:07)
[2020-11-01] MEDS: Furosemide 40 MG Tablet PO (07:08)
[2020-11-01] MEDS: Potassium Chloride Oral Tablet 10 MEQ PO (08:35)
[2020-11-01 10:43] VITALS: PULSE 76; RESP 16; O2SAT 97
[2020-11-01 13:41] VITALS: BP 106/63; PULSE 76; RESP 16; TEMP 36.9; O2SAT 97
== END 2020-11-01 13:46 | disposition home or self-care (01) | DRG 292 ==
LOC: TCU 13:03
PROVIDERS: Admitting Provider Family Medicine Geriatric Medicine; PCP Family Medicine; Visit Provider Family Medicine Geriatric Medicine
DX: I50.43 Acute on chronic combined systolic (congestive) and diastolic (congestive) heart failure (principal); I48.92 Unspecified atrial flutter; E87.3 Alkalosis; N40.0 Benign prostatic hyperplasia without lower urinary tract symptoms; E87.6 Hypokalemia; I25.10 Atherosclerotic heart disease of native coronary artery without angina pectoris; D69.6 Thrombocytopenia, unspecified; R09.02 Hypoxemia; F32.9 Major depressive disorder, single episode, unspecified; I25.5 Ischemic cardiomyopathy; Z86.16 Personal history of COVID-19; Z95.1 Presence of aortocoronary bypass graft; Z79.899 Other long term (current) drug therapy; Z95.810 Presence of automatic (implantable) cardiac defibrillator; Z79.01 Long term (current) use of anticoagulants; Z87.891 Personal history of nicotine dependence
CPT/HCPCS: 36415; 80048; 81001; 85025; 87086; 87088; 94640; 94762; 97110; 97116; 97161; 97165; 97530; 97535; 97802; A4216

== ENCOUNTER → 2020-11-24 16:00 | Outpatient (CLI) | payer MEDICARE, OTHER, SELFPAY ==
[2020-11-24 14:40] VITALS: BMI 27.9
[2020-11-24 18:05] LABS: Anion Gap 2 (5-15); BUN 26 mg/dL (7-18); BUN/Creat Ratio 16.7 RATIO (10-20); Calcium,Total 8.7 mg/dL (8.5-10.1); Chloride 104 mmol/L (98-107); Creatinine, Serum 1.56 mg/dL (0.70-1.30); EST Glomerular Filtration Rate 45 mL/min (>60); Est Glom Filt Rate - Afr Amer 55 mL/min (>60); Glucose 109 mg/dL (74-106); Potassium 4.1 mmol/L (3.5-5.1); Sodium Level 142 mmol/L (136-145)
== END ==
PROVIDERS: PCP Family Medicine; Visit Provider Nurse Practitioner Family
DX: I25.10 Atherosclerotic heart disease of native coronary artery without angina pectoris (principal); I25.5 Ischemic cardiomyopathy; Z95.2 Presence of prosthetic heart valve; Z95.1 Presence of aortocoronary bypass graft
CPT/HCPCS: 36415; 80048

== ENCOUNTER 2020-12-07 08:42 | Observation (INO) | payer MEDICARE, OTHER, SELFPAY ==
[2020-11-24 14:40] VITALS: BMI 27.9
[2020-12-07] VITALS (10 sets, daily range): BP systolic 100–163; BP diastolic 63–98; PULSE 73–109; RESP 16–24; TEMP 36.7–37.8; O2SAT 95–99; BMI 28.4; BMI 27.3
--- NOTE | 2020-12-07 09:21 | EX.ED.DYSGE1 ---
HPI History of Present Illness Chief Complaint: Flank Pain Informant: patient and EMS Narrative Narrative: 85-year-old male presents for evaluation of low back pain. Patient tells me that yesterday he got up walked around [place] a couple times. He states that he did not do anything out of the ordinary. He came inside around 9 PM and noticed that his back was a little sore. When he woke this morning states he was unable to get up and go to the bathroom and needed to call EMS to bring him to the hospital. He notes the low back radiates down towards his buttock. He denies any radiation to the legs. No known trauma. He does note that his Lasix was recently increased from 80 mg a day to 120 mg a day. He feels that he is urinating normally. [facility] Medical History Atherosclerosis of coronary artery of [place] heart without angina pectoris Ischemic cardiomyopathy Home Medications finasteride 5 mg PO DAILY 09/22/20 [History Last Taken 10/10/20] rivaroxaban 15 mg PO DAILY 10/13/20 [History Last Taken Unknown] peg [id number] 2 drp EACH EYE PRN PRN 10/21/20 [History Last Taken Unknown] sacubitril 49 mg-valsartan 51 mg tablet 1 tablet PO BID #60 tablet 10/21/20 [Rx Last Taken Unknown] acetaminophen 650 mg PO Q6H PRN PRN tablet 10/31/20 [Rx Last Taken Unknown] citalopram 10 mg PO DAILY #30 tablet 10/31/20 [Rx Last Taken Unknown] potassium chloride 10 meq PO BIDCM #60 tablet 10/31/20 [Rx Last Taken Unknown] cholecalciferol (vitamin D3) 25 mcg (1,000 unit) tablet 25 mcg PO DAILY 11/24/20 [History Last Taken Unknown] mecobalamin (vitamin B12) 5,000 mcg disintegrating tablet mcg PO 11/24/20 [History Last Taken Unknown] slfgebrl-otg-zbyag 200 mcg-lycop 175 mcg-lutei 250 mcg-herb 178 tablet 1 tab PO DAILY 11/24/20 [History Last Taken Unknown] omega-3 fatty acids 1,250 mg capsule 1,250 mg PO DAILY 11/24/20 [History Last Taken Unknown] tamsulosin 0.4 mg capsule 0.8 mg PO BID cap 11/24/20 [History Last Taken Unknown] vitamin E (dl, acetate) 450 mg (1,000 unit) capsule 450 mg PO DAILY 11/24/20 [History Last Taken Unknown] carvedilol 12.5 mg tablet 12.5 mg PO BID #180 tab 11/28/20 [Rx Last Taken Unknown] furosemide 40 mg PO LUNCH 12/07/20 [History Last Taken Unknown] furosemide 80 mg PO BREAKFAST 12/07/20 [History Last Taken Unknown] Allergy/AdvReac Type Severity Reaction Status Date / Time ofloxacin [From Floxin] Allergy migraine Verified 12/07/20 08:43 diphenhydramine AdvReac shuts off Verified 12/07/20 08:43 [From Benadryl] my urine Family History Mother Heart problem Brother Dialysis patient Surgical History H/O colectomy History of back surgery History of benign neoplasm of salivary gland History of cataract extraction History of coronary artery bypass graft History of open heart surgery History of umbilical hernia repair ICD (implantable cardioverter-defibrillator) in place Social History Smoking Status: Former smoker how long ago did patient quit smokin's alcohol intake: never substance use type: does not use well-balanced diet: other details: Fluid restrictions 48 ozs per day caffeine: Yes Type: coffee Number of servings: 1 ROS ROS ED Constitutional Constitutional ED: Denies chills or weight loss Eyes Eyes: Denies change in vision or diplopia ENT ENT ED: Denies ear pain, rhinorrhea or sore throat Cardiovascular Cardiovascular: Denies chest pain, orthopnea, palpitations or racing heartbeat Respiratory/Chest Respiratory/Chest: Denies cough, dyspnea or orthopnea Gastrointestinal Gastrointestinal: Denies abdominal pain, diarrhea, nausea or vomiting Genitourinary Genitourinary ED: Denies dysuria, hematuria or urinary frequency Musculoskeletal Musculoskeletal: Reports back pain; Denies arthralgias or myalgias Integumentary Denies abscess or rash Neurologic Neurologic: Denies headache(s) or weakness Psychiatric Psychiatric: Denies anxiety, depression, suicidal ideation or suicidal thoughts Endocrine Endocrinology: Denies polydipsia, polyphagia or polyuria Allergic/Immunologic Allergic/Immunologic ED: Denies mouth swelling, tongue swelling or urticaria EXAM Physical Exam Const Vital Signs: 12/07/20 08:46 12/07/20 08:48 12/07/20 10:09 Temperature 100.0 F H 100.0 F H 99.7 F H Temperature Source Oral Oral Axillary Pulse Rate 109 H 95 95 Respiratory Rate 23 H 22 H 20 H Respiratory Effort Short of Breath Labored Respiratory Pattern Tachypnea Blood Pressure 163/98 H 163/98 H 127/72 H Blood Pressure Mean 119 119 90 Pulse Ox 95 96 97 Oxygen Delivery Method Nasal Cannula Nasal Cannula Nasal Cannula Oxygen Flow Rate (L/min) 2 2 2 12/07/20 10:56 12/07/20 12:03 12/07/20 13:27 Temperature 98.9 F 99.4 F H 99.4 F H Temperature Source Oral Oral Oral Pulse Rate 85 73 97 Respiratory Rate 24 H 23 H 20 H Respiratory Effort Respiratory Pattern Blood Pressure 133/79 H 133/79 H 149/85 H Blood Pressure Mean 97 97 106 Pulse Ox 98 98 98 Oxygen Delivery Method Nasal Cannula Room Air Room Air Oxygen Flow Rate (L/min) 2 Positive well nourished and well developed General Appearance ED: well developed HEENT Reports normocephalic, head/scalp atraumatic and moist mucous membranes Eyes PERRL and EOMs intact bilaterally Neck no lymphadenopathy, supple and no JVD Resp normal respiratory effort and clear to auscultation bilaterally Cardio no murmurs Rate: other Other Details: Irregularly irregular rhythm GI normal to inspection, nondistended, normoactive bowel sounds and non-tender Palpation: soft Back/Spine normal ROM Back/Spine Narrative: Patient's low back is not particularly tender to palpation. There are no rashes. He has painful range of motion. Extremity normal to inspection General Extremety ED: Negative for edema General Extremity: Negative for edema Neuro oriented x3 and CN's II-XII intact bilaterally Sensorium / Orientation: alert Motor Exam: strength 5/5 throughout Psych mental status grossly normal Mood & Affect: Negative for depressed or tearful Skin no rashes or lesions noted and no wounds MDM MDM MDM Narrative Medical decision making narrative: Patient's blood work specifically the potassium near baseline. Creatinine 1.68. Urinalysis shows greater than 100 red blood cells this is status post attempt at Toth catheter placement. Patient received morphine. CT the abdomen pelvis showed cholelithiasis renal cyst. No obvious pathology to explain his pain. As his pain in his back is diffuse and is reproducible with movement is most likely muscular strain due to deconditioning and his increased activity yesterday. He is unable to even get his leg off the bed for me to help get him out of bed. He lives in independent living currently. Plan will be admission for pain control PT marcell. Lab Data Labs: Laboratory Results - last 24 hr 12/07/20 12/07/20 12/07/20 08:57 08:57 11:02 WBC 7.0 RBC 3.95 L Hgb 13.5 Hct 42.1 MCV 106.6 H MCH 34.2 H MCHC 32.1 RDW Std Deviation 54.5 H RDW Coeff of Daryl 13.7 Plt Count 108 L MPV 11.5 Immature Gran % (Auto) 0.400 Neut % (Auto) 75.1 H Lymph % (Auto) 9.2 L [place] % (Auto) 13.9 H Eos % (Auto) 0.7 Baso % (Auto) 0.7 Absolute Neuts (auto) 5.3 Absolute Lymphs (auto) 0.65 L Nucleated RBC % 0 Sodium 140 Potassium 3.9 Chloride 102 Carbon Dioxide 33.0 H Anion Gap 5 BUN 27 H Creatinine 1.68 H Estim Creat Clear Calc 27.96 Est GFR (MDRD) Af Amer 50 L Est GFR (MDRD) Non-Af 41 L BUN/Creatinine Ratio 16.1 Glucose 144 H Calcium 8.7 Total Bilirubin 1.30 H AST 20 ALT 21 Alkaline Phosphatase 94 Total Protein 7.7 Albumin 3.7 Globulin 4.0 Albumin/Globulin Ratio 0.9 Urine Color Yellow Urine Clarity Sl. Cloudy Urine pH 7.0 Ur Specific [place] 1.010 Urine Protein 30 H Urine Glucose (UA) Normal Urine Ketones Negative Urine Occult Blood 250 H Urine Nitrite Negative Urine Bilirubin Negative Urine Urobilinogen 1 H Ur Leukocyte Esterase 25 H Urine RBC > 100 SEEN Urine WBC 0-5 SEEN Ur Squamous Epith Cells 0-5 SEEN Urine Bacteria 0 SEEN Urine Mucus 0 SEEN Radiography Diagnostic Testing: Radiology Impression Abdomen/Pelvis CT 12/07/20 10:51 IMPRESSION: 1. No acute abnormality. 2. Small bilateral pleural effusions. 3. Cholelithiasis. Electronically Signed: Prabhu Brewer MD at 12:36 EDT Tel , Service support , Discharge Plan Triage Chief Complaint: Flank Pain ED Provider: Javier Kenny Dx/Rx/DC Orders Clinical Impression: Strain of lumbar paraspinal muscle Prescriptions: No Action Entresto 49-51 mg tablet 1 tablet PO BID Qty: 60 RF: 11 tamsulosin 0.4 mg capsule 0.8 mg PO BID RF: 0 omega-3 fatty acids 1,250 mg capsule 1,250 mg PO DAILY RF: 0 Oneil Multivitamin For Men 200-175-250 mcg tablet 1 tab PO DAILY RF: 0 vitamin E (dl, acetate) 450 mg (1,000 unit) capsule 450 mg PO DAILY RF: 0 mecobalamin (vitamin B12) 5,000 mcg tablet,disintegrating PO RF: 0 cholecalciferol (vitamin D3) 25 mcg (1,000 unit) tablet 25 mcg PO DAILY RF: 0 finasteride 5 MG tablet 5 mg PO DAILY RF: 0 rivaroxaban 15 MG tablet 15 mg PO DAILY RF: 0 citalopram 10 MG tablet 10 mg PO DAILY Qty: 30 RF: 0 acetaminophen 500 MG tablet 650 mg PO Q6H PRN PRN (Reason: Pain Score 1-10) RF: 0 potassium chloride 10 MEQ tablet 10 meq PO BIDCM Qty: 60 RF: 0 peg [id number] 1 DRP bottle 2 drp EACH EYE PRN PRN (Reason: Dry Eyes) RF: 0 furosemide 40 mg Tablet 40 mg PO LUNCH RF: 0 furosemide 40 mg tablet 80 mg PO BREAKFAST RF: 0 carvedilol 12.5 mg tablet 12.5 mg PO BID Qty: 180 RF: 3 Primary Care Provider: Prabhu Vee Referrals: Prabhu Vee MD [Primary Care Provider] - Disposition Disposition: Acute Care [facility]
[2020-12-07 09:26] LABS: Absolute Lymphocyte Count 0.65 X10^3/uL (0.83-4.51); Absolute Neutrophil Count 5.3 X10^3/uL (2.0-7.7); Basophil# 0.05 X10^3/uL; Basophil% 0.7 % (0-1); Eosinophil# 0.05 X10^3/uL; Eosinophils% 0.7 % (0-5); Hematocrit 42.1 % (40-54); Hemoglobin 13.5 g/dL (13.0-16.5); Lymphocyte # 0.65 X10^3/ul (0.83-4.51); Lymphocyte % 9.2 % (19-41); Mean Corp Hgb Conc 32.1 g/dL (32-36); Mean Corpuscular Hgb 34.2 pg (27.0-32.0); Mean Corpuscular Volume 106.6 fL (80-94); Mean Platelet Vol. 11.5 fl (6.2-12.0); Monocyte# 0.98 X10^3/uL; Monocyte% 13.9 % (0-10); NRBC Flagged by Analyzer 0 % (0-5); Neutrophil # 5.27 X10^3/uL (2.7-7.7); Neutrophil % 75.1 % (47-70); Platelet Count 108 K/mm3 (150-450); RBC Distribution Width CV 13.7 % (11.6-14.6); RBC Distribution Width SD 54.5 fl (35.1-43.9); Red Blood Count 3.95 M/mm3 (4.6-6.2)
[2020-12-07 09:34] LABS: ALB/GLOB Ratio 0.9 RATIO (0.9-2.4); AST(SGOT) 20 U/L (15-37); Alanine Aminotransfer ALT/SGPT 21 U/L (16-61); Albumin, Serum 3.7 g/dL (3.2-5.0); Alkaline Phosphatase 94 U/L (45-117); Anion Gap 5 (5-15); BUN 27 mg/dL (7-18); BUN/Creat Ratio 16.1 RATIO (10-20); Calcium,Total 8.7 mg/dL (8.5-10.1); Chloride 102 mmol/L (98-107); Creatinine, Serum 1.68 mg/dL (0.70-1.30); EST Glomerular Filtration Rate 41 mL/min (>60); Est Glom Filt Rate - Afr Amer 50 mL/min (>60); Estimated Creatinine Clearance 27.96 ml/min; Glucose 144 mg/dL (74-106); Potassium 3.9 mmol/L (3.5-5.1); Protein, Total 7.7 g/dL (6.4-8.2); Sodium Level 140 mmol/L (136-145)
--- NOTE | 2020-12-07 10:10 | ED.RN ---
PT UNABLE TO URINATE AT THIS TIME. DIRECTED BY DR. HERNANDES THIS RN ATTEMPTED A STRAIGHT CATH ON PT. PT HAS BPH AND WAS UNABLE TO ADVANCE CATHETER PAST PROSTATE. PT TOLERATED WELL, CATHETER REMOVED. PT MOVED UP IN BED.
--- NOTE | 2020-12-07 10:51 | CT_ITS ---
STUDY: CT ABDOMEN AND PELVIS WITH CONTRAST REASON FOR EXAM: Male, 85 years old. flank pain RADIATION DOSAGE (If Supplied By Facility): CTDIvol = ( 18.43 ) mGy, DLP = ( 1827.57 ) mGycm TECHNIQUE: Transaxial images were obtained from the dome of the diaphragm to the symphysis pubis without oral contrast. IV 75mL Isovue-[id number] was administered. Sagittal and coronal images were reconstructed. Individualized dose optimization techniques were used for this CT. COMPARISON: None. FINDINGS: Small right pleural effusion and tiny left pleural effusion. Cardiomegaly. Normal liver. There is a solitary gallstone. Normal spleen. Normal pancreas. Normal bilateral adrenal glands. 3.5 cm cyst in the midsection right kidney. Normal left kidney. Normal visualized stomach. Normal small intestine. Suture line in the sigmoid colon. The appendix is visualized and appears normal. Normal abdominal aorta. Normal inferior vena cava. Normal retroperitoneum. Normal urinary bladder. There is enlargement of the prostate gland. Normal abdominal wall. Mild dextroscoliosis lower lumbar spine with degenerative disc disease. CT/Abdomen/Pelvis W IV Cont ONLY IMPRESSION: 1. No acute abnormality. 2. Small bilateral pleural effusions. 3. Cholelithiasis. Electronically Signed: Prabhu Brewer MD at 12:36 EDT Tel , Service support ,
--- NOTE | 2020-12-07 10:57 | ED.RN ---
pt given water to drink. encouraged to ring call light when he needs to urinate.
[2020-12-07 11:08] LABS: Bacteria 0 SEEN /hpf (None Seen); Color, Urine Yellow (Yellow); Glucose, Dipstick Normal (Normal); Ketone-Dipstick Negative (Negative); Leukocyte Esterase-Dipstick 25 /ul (Negative); Mucous, Urine 0 SEEN /hpf (<or=2+); Nitrite-Dipstick Negative (Negative); Occult Blood-Urine 250 /ul (Negative); Protein-Dipstick 30 mg/dl (Negative); Urine Bilirubin Dipstick Negative (Negative); Urine Clarity Sl. Cloudy (Clear); Urine Urobilinogen 1 mg/dl (Normal)
[2020-12-07 11:14] LABS: Red Blood Cells-Urine > 100 SEEN /hpf (0-5); Squamous Epithelial Cells - UA 0-5 SEEN /hpf (0-5); White Blood Cells 0-5 SEEN /hpf (0-5)
[2020-12-07] MEDS: Morphine 4 MG/ML Syringe IV ×3 (12:21→15:51)
[2020-12-07] MEDS: Ondansetron 4 MG/2 ML Vial IV (12:21)
--- NOTE | 2020-12-07 13:50 | HP.PCM.HOS_ITS ---
Documented by User: Solange Hurst NP, MOTION PI[employer]URE PROJECTIONIST APPRENTICE-C 12/07/20 14:22 HPI - General General Date of Admission: 12/07/20 Chief Complaint: Back pain. HPI Narrative ERIK ARCHER, is a 85 M who presents to the emergency room due to back pain. P arian states he went for a walk last night at his apartment/[facility]. He states when he got back from his walk he noticed his lower back was aching. This morning when he woke up he states he was unable to get out of bed due to significant lower back pain which radiates down his buttock on both sides. He denies pain radiation down legs. Denies urinary incontinence. Denies numbness, tingling. Denies other associated symptoms or complaints. He denies fall or recent injury. States he has not had back pain or similar episodes in the past. He has a past medical history of CAD status post CABG, mitral valve replacement, chronic atrial flutter/A. fib, chronic heart failure with reduced ejection fraction/ischemic cardiomyopathy, status post ICD placement, chronic approximate respiratory failure, severe pulmonary hypertension, chronic thrombocytopenia, chronic kidney disease stage IIIa. [facility] Medical History Atherosclerosis of coronary artery of [place] heart without angina pectoris Cancer Chest pain Coronary artery disease Depression Former smoker Hypertension Irregular heart beat Ischemic cardiomyopathy Myocardial infarct Pacemaker Home Medications finasteride 5 mg PO DAILY 09/22/20 [History Last Taken 10/10/20] rivaroxaban 15 mg PO DAILY 10/13/20 [History Last Taken Unknown] peg [id number]-rvskfwzl 2 drp EACH EYE PRN PRN 10/21/20 [History Last Taken Unknown] sacubitril 49 mg-valsartan 51 mg tablet 1 tablet PO BID #60 tablet 10/21/20 [Rx Last Taken Unknown] acetaminophen 650 mg PO Q6H PRN PRN tablet 10/31/20 [Rx Last Taken Unknown] citalopram 10 mg PO DAILY #30 tablet 10/31/20 [Rx Last Taken Unknown] potassium chloride 10 meq PO BIDCM #60 tablet 10/31/20 [Rx Last Taken Unknown] cholecalciferol (vitamin D3) 25 mcg (1,000 unit) tablet 25 mcg PO DAILY 11/24/20 [History Last Taken Unknown] mecobalamin (vitamin B12) 5,000 mcg disintegrating tablet mcg PO 11/24/20 [History Last Taken Unknown] qloeoybv-pcv-hpctp 200 mcg-lycop 175 mcg-lutei 250 mcg-herb 178 tablet 1 tab PO DAILY 11/24/20 [History Last Taken Unknown] omega-3 fatty acids 1,250 mg capsule 1,250 mg PO DAILY 11/24/20 [History Last Taken Unknown] tamsulosin 0.4 mg capsule 0.8 mg PO BID cap 11/24/20 [History Last Taken Unknown] vitamin E (dl, acetate) 450 mg (1,000 unit) capsule 450 mg PO DAILY 11/24/20 [History Last Taken Unknown] carvedilol 12.5 mg tablet 12.5 mg PO BID #180 tab 11/28/20 [Rx Last Taken Unknown] furosemide 40 mg PO LUNCH 12/07/20 [History Last Taken Unknown] furosemide 80 mg PO BREAKFAST 12/07/20 [History Last Taken Unknown] Allergy/AdvReac Type Severity Reaction Status Date / Time ofloxacin [From Floxin] Allergy migraine Verified 12/07/20 08:43 diphenhydramine AdvReac shuts off Verified 12/07/20 08:43 [From Benadryl] my urine Family History (Reviewed 12/07/20 @ 14:14 by Solange Hurst [employer]ION PI[employer] PROJECTIONIST APPRENTICE, MOTION PI[employer]URE PROJECTIONIST APPRENTICE-C) Mother Heart problem Brother Dialysis patient other (Denies paternal medical history including cardiac history.) Surgical History H/O colectomy History of back surgery History of benign neoplasm of salivary gland History of cataract extraction History of coronary artery bypass graft History of open heart surgery History of umbilical hernia repair ICD (implantable cardioverter-defibrillator) in place Social History Smoking Status: Former smoker how long ago did patient quit smokin's alcohol intake: never substance use type: does not use well-balanced diet: other details: Fluid restrictions 48 ozs per day caffeine: Yes Type: coffee Number of servings: 1 ROS Constitutional Constitutional: Denies change in weight, chills, fatigue, fever(s) or weakness Cardiovascular Cardiovascular: Denies chest pain, edema, lightheadedness, palpitations or syncope Respiratory/Chest Respiratory/Chest: Denies cough, dyspnea, productive cough, shortness of breath at rest, shortness of breath with exertion or wheezing Gastrointestinal Gastrointestinal: Denies abdominal pain, constipation, diarrhea, nausea or vomiting Genitourinary Genitourinary: Denies burning urination, difficulty urinating, dysuria, hematuria, urinary frequency, urinary incontinence or urinary urgency Musculoskeletal Musculoskeletal: Reports back pain and other Details: Bilateral lumbar back pain radiation to buttocks ; Denies joint pain or muscle weakness Integumentary Integumentary: Reports systems reviewed and no addt'l complaints, except as documented Neurologic Neurologic: Denies abnormal speech, confusion, dizziness, focal weakness, numbness, paresthesias, seizure-like activity or syncope Psychiatric Psychiatric: Denies anxiety or depression Hematologic/Lymphatic Hematologic/Lymphatic: Denies anemia, easy bleeding or easy bruising Allergic/Immunologic Allergic/Immunologic: Denies hives or asthma Vital Signs Vital Signs Vital Signs: 12/07/20 08:46 12/07/20 08:48 12/07/20 10:09 Temperature 100.0 F H 100.0 F H 99.7 F H Temperature Source Oral Oral Axillary Pulse Rate 109 H 95 95 Respiratory Rate 23 H 22 H 20 H Respiratory Effort Short of Breath Labored Respiratory Pattern Tachypnea Blood Pressure 163/98 H 163/98 H 127/72 H Blood Pressure Mean 119 119 90 Pulse Ox 95 96 97 Oxygen Delivery Method Nasal Cannula Nasal Cannula Nasal Cannula Oxygen Flow Rate (L/min) 2 2 2 12/07/20 10:56 12/07/20 12:03 12/07/20 13:27 Temperature 98.9 F 99.4 F H 99.4 F H Temperature Source Oral Oral Oral Pulse Rate 85 73 97 Respiratory Rate 24 H 23 H 20 H Respiratory Effort Respiratory Pattern Blood Pressure 133/79 H 133/79 H 149/85 H Blood Pressure Mean 97 97 106 Pulse Ox 98 98 98 Oxygen Delivery Method Nasal Cannula Room Air Room Air Oxygen Flow Rate (L/min) 2 Physical Exam Const alert, oriented x3 and no apparent distress Orientation / Consciousness: awake, oriented to person, oriented to place and oriented to time HEENT normocephalic and moist oral mucous membranes Eyes PERRL, EOMs intact bilaterally and conjunctivae normal Neck no lymphadenopathy Resp normal respiratory effort and clear to auscultation bilaterally Cardio regular rate, regular rhythm and no murmurs Peripheral Pulses: pulses 2+ throughout GI normal to inspection, nondistended, normoactive bowel sounds, non-tender and non-distended Extremity normal to inspection Extremity Narrative: Pain with straight leg raise bilaterally Skin no rashes or lesions noted Lesions: no lesions Rashes: no rashes Trauma: no lacerations or abrasions Neuro CN's II-XII intact bilaterally, no focal motor deficits, no sensory deficits noted and deep tendon reflexes 2+ bilaterally Psych mental status grossly normal and affect normal Lab / Micro Data Result Diagrams: 12/07/20 08:57 12/07/20 08:57 Labs: Laboratory Results - last 24 hr 12/07/20 12/07/20 12/07/20 08:57 08:57 11:02 WBC 7.0 RBC 3.95 L Hgb 13.5 Hct 42.1 MCV 106.6 H MCH 34.2 H MCHC 32.1 RDW Std Deviation 54.5 H RDW Coeff of Daryl 13.7 Plt Count 108 L MPV 11.5 Immature Gran % (Auto) 0.400 Neut % (Auto) 75.1 H Lymph % (Auto) 9.2 L Atkinson % (Auto) 13.9 H Eos % (Auto) 0.7 Baso % (Auto) 0.7 Absolute Neuts (auto) 5.3 Absolute Lymphs (auto) 0.65 L Nucleated RBC % 0 Sodium 140 Potassium 3.9 Chloride 102 Carbon Dioxide 33.0 H Anion Gap 5 BUN 27 H Creatinine 1.68 H Estim Creat Clear Calc 27.96 Est GFR (MDRD) Af Amer 50 L Est GFR (MDRD) Non-Af 41 L BUN/Creatinine Ratio 16.1 Glucose 144 H Calcium 8.7 Total Bilirubin 1.30 H AST 20 ALT 21 Alkaline Phosphatase 94 Total Protein 7.7 Albumin 3.7 Globulin 4.0 Albumin/Globulin Ratio 0.9 Urine Color Yellow Urine Clarity Sl. Cloudy Urine pH 7.0 Ur Specific Wasta 1.010 Urine Protein 30 H Urine Glucose (UA) Normal Urine Ketones Negative Urine Occult Blood 250 H Urine Nitrite Negative Urine Bilirubin Negative Urine Urobilinogen 1 H Ur Leukocyte Esterase 25 H Urine RBC > 100 SEEN Urine WBC 0-5 SEEN Ur Squamous Epith Cells 0-5 SEEN Urine Bacteria 0 SEEN Urine Mucus 0 SEEN Radiology Impression Abdomen/Pelvis CT 12/07/20 10:51 IMPRESSION: 1. No acute abnormality. 2. Small bilateral pleural effusions. 3. Cholelithiasis. Electronically Signed: Prabhu Brewer MD at 12:36 EDT Tel , Service support , Assessment & Plan Assessment/Plan (1) Lumbar radiculopathy: PLAN: 1. Debility, intractable pain secondary to lumbar radiculopathy-CT of abdomen pelvis unremarkable. As needed pain regimen. IV Decadron. 2. CAD status post CABG-continue medical management including carvedilol, Entresto, Xarelto. 3. s/p Mitral valve replacement 4. Chronic atrial flutter/A. fib-on Xarelto, carvedilol. 5. Chronic heart failure with reduced ejection fraction/ischemic cardiomyopathy/status post ICD placement-continue home Lasix regimen. 6. Chronic hypoxic respiratory failure secondary to chronic heart failure with reduced ejection fraction/ischemic cardiomyopathy/severe pulmonary hypertension- continue baseline submental oxygen. 7. Chronic thrombocytopenia- stable, follows with hematology. 8. Chronic kidney disease stage IIIa-at baseline, trend BMP. 9. BPH-continue finasteride. DVT prophylaxis-Xarelto This patient was seen by SANTY Terrell under the supervision of Dr. Morton. Documented by User: Dr. Jace Morton, 12/07/20 15:45 HPI - General General Date of Admission: 12/07/20 [facility] Medical History Atherosclerosis of coronary artery of [place] heart without angina pectoris Cancer Chest pain Coronary artery disease Depression Former smoker Hypertension Irregular heart beat Ischemic cardiomyopathy Myocardial infarct Pacemaker Home Medications finasteride 5 mg PO DAILY 09/22/20 [History Last Taken 10/10/20] rivaroxaban 15 mg PO DAILY 10/13/20 [History Last Taken Unknown] peg [id number] 2 drp EACH EYE PRN PRN 10/21/20 [History Last Taken Unknown] sacubitril 49 mg-valsartan 51 mg tablet 1 tablet PO BID #60 tablet 10/21/20 [Rx Last Taken Unknown] acetaminophen 650 mg PO Q6H PRN PRN tablet 10/31/20 [Rx Last Taken Unknown] citalopram 10 mg PO DAILY #30 tablet 10/31/20 [Rx Last Taken Unknown] potassium chloride 10 meq PO BIDCM #60 tablet 10/31/20 [Rx Last Taken Unknown] cholecalciferol (vitamin D3) 25 mcg (1,000 unit) tablet 25 mcg PO DAILY 11/24/20 [History Last Taken Unknown] mecobalamin (vitamin B12) 5,000 mcg disintegrating tablet mcg PO 11/24/20 [History Last Taken Unknown] nvwvadkx-dtr-xzkjr 200 mcg-lycop 175 mcg-lutei 250 mcg-herb 178 tablet 1 tab PO DAILY 11/24/20 [History Last Taken Unknown] omega-3 fatty acids 1,250 mg capsule 1,250 mg PO DAILY 11/24/20 [History Last Taken Unknown] tamsulosin 0.4 mg capsule 0.8 mg PO BID cap 11/24/20 [History Last Taken Unknown] vitamin E (dl, acetate) 450 mg (1,000 unit) capsule 450 mg PO DAILY 11/24/20 [History Last Taken Unknown] carvedilol 12.5 mg tablet 12.5 mg PO BID #180 tab 11/28/20 [Rx Last Taken Unk nown] furosemide 40 mg PO LUNCH 12/07/20 [History Last Taken Unknown] furosemide 80 mg PO BREAKFAST 12/07/20 [History Last Taken Unknown] Allergy/AdvReac Type Severity Reaction Status Date / Time ofloxacin [From Floxin] Allergy migraine Verified 12/07/20 08:43 diphenhydramine AdvReac shuts off Verified 12/07/20 08:43 [From Benadryl] my urine Family History (Reviewed 12/07/20 @ 14:14 by Solange Hurst MOTION PICTURE PROJECTIONIST APPRENTICE, MOTION PICTURE PROJECTIONIST APPRENTICE-C) Mother Heart problem Brother Dialysis patient Surgical History H/O colectomy History of back surgery History of benign neoplasm of salivary gland History of cataract extraction History of coronary artery bypass graft History of open heart surgery History of umbilical hernia repair ICD (implantable cardioverter-defibrillator) in place Social History (Reviewed 12/07/20 @ 14:14 by Solange Hurst MOTION PICTURE PROJECTIONIST APPRENTICE, MOTION PICTURE PROJECTIONIST APPRENTICE-C) Smoking Status: Former smoker how long ago did patient quit smokin's alcohol intake: never substance use type: does not use well-balanced diet: other details: Fluid restrictions 48 ozs per day caffeine: Yes Type: coffee Number of servings: 1 Lab / Micro Data Result Diagrams: 12/07/20 08:57 12/07/20 08:57 Addendum Addendum: Patient was seen and examined independently of Solange Hurst, he came to the emergency room today with complaints of lower back pain and pain radiating into his left buttocks and down his left leg. Patient was not able to ambulate or perform ADLs at his residence. Work-up in the emergency room revealed no abnormality of his lab work, CT of the abdomen and pelvis was performed but there was no evidence of a kidney stone or a stone in the ureter. 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 Patient w as medicated for pain but despite this he could not ambulate and it was felt he would benefit from an overnight stay in the hospital for physical therapy and pain control. On examination he appeared his stated age. Vital signs as documented. Skin warm and dry and without overt rashes. Neck without JVD, neck was supple, trachea midline, thyroid was normal. Lungs clear bilaterally, normal air movement was noted. Heart exam notable for irregular rhythm, normal sounds and absence of murmurs, rubs or gallops. Abdomen unremarkable and without evidence of organomegaly, masses, or abdominal aortic enlargement. Bowel sounds are present, abdomen is not distended. Extremities nonedematous, no cyanosis was noted, no clubbing was noted. Neuro: Cranial nerves II through XII are grossly intact, no focal motor deficits were noted, sensation to light touch and pinprick intact, motor exam 5/5 throughout. Psych: Patient is alert and oriented x3, he does not appear anxious or depressed, he does not appear agitated. Patient will be placed in observation status on MedSurg 3, he will be given IV and p.o. analgesics, he will be placed on IV Decadron, he will be given oral Valium as a muscle relaxant. Patient will be seen by PT and OT. I have reviewed Solange Hurst's history and physical including her medical assessment and plan of care and endorse it. Visit Charges OBSV E&M: 75433 Initial observation care L3
[2020-12-07] MEDS: 0.9% Saline Lock 10 ML Syringe IV ×3 (15:52→22:47)
[2020-12-07] MEDS: dexAMETHasone 4 MG/ML Vial IV ×2 (17:21→22:47)
[2020-12-07] MEDS: Potassium Chloride Oral Tablet 10 MEQ PO (17:21)
[2020-12-07] MEDS: diazePAM 2 MG Tablet PO ×2 (17:21→22:47)
[2020-12-07] MEDS: oxyCODONE 5 MG Tablet PO ×2 (17:21→22:47)
[2020-12-07] MEDS: Carvedilol 12.5 MG Tablet PO (22:42)
[2020-12-07] MEDS: Tamsulosin HCl 0.4 MG Capsule 0.8 MG PO (22:42)
[2020-12-07] MEDS: SACUBITRIL/VALSARTAN 49-51 MG TABLET 1 EACH PO (22:43)
[2020-12-08 03:30] VITALS: BP 110/67; PULSE 70; RESP 16; TEMP 36.6; O2SAT 97
[2020-12-08] MEDS: dexAMETHasone 4 MG/ML Vial IV (06:06)
[2020-12-08] MEDS: Acetaminophen 325 MG Tablet 650 MG PO (06:10)
[2020-12-08] MEDS: oxyCODONE 5 MG Tablet PO (06:11)
[2020-12-08 08:40] VITALS: BP 118/67; PULSE 71; RESP 16; TEMP 36.5; O2SAT 100
[2020-12-08] MEDS: diazePAM 2 MG Tablet PO ×3 (08:56→18:03)
[2020-12-08] MEDS: Potassium Chloride Oral Tablet 10 MEQ PO ×2 (08:57→16:54)
[2020-12-08] MEDS: Tamsulosin HCl 0.4 MG Capsule 0.8 MG PO (08:57)
[2020-12-08] MEDS: Citalopram 10 MG Tablet PO (08:58)
[2020-12-08] MEDS: Carvedilol 12.5 MG Tablet PO (08:58)
[2020-12-08] MEDS: SACUBITRIL/VALSARTAN 49-51 MG TABLET 1 EACH PO (08:58)
[2020-12-08] MEDS: Furosemide 80 MG Tablet PO (08:58)
[2020-12-08 09:00] VITALS: O2SAT 99
[2020-12-08] MEDS: Finasteride 5 MG Tablet PO (09:00)
[2020-12-08] MEDS: predniSONE 20 MG Tablet 40 MG PO (11:30)
[2020-12-08] MEDS: Furosemide 40 MG Tablet PO (11:30)
--- NOTE | 2020-12-08 13:52 | PN.HOSP_ITS ---
Subjective Subjective back pain much better. pain localized to lower left back. denies any trauma or falls. Objective Data Objective Data Vital Signs: Vital Signs Temp Pulse Resp BP Pulse Ox 36.5 C L 71 16 118/67 100 12/08/20 08:40 12/08/20 08:40 12/08/20 08:40 12/08/20 08:40 12/08/20 08:40 Oxygen Flow Rate (L/min) 2 Oxygen Delivery Method Nasal Cannula Weight: 74.6 kg Body Mass Index (BMI) 27.3 Intake & Output: Intake and Output for Last 24 Hours 12/06/20 12/07/20 12/08/20 23:59 23:59 23:59 Intake Total 240 / 240 700 / 700 Output Total 0 / 0 500 / 500 Balance 240 / 240 200 / 200 Lab / Micro Data Result Diagrams: 12/07/20 08:57 12/07/20 08:57 Physical Exam Narrative reproducible left lumbar paraspinal muscle tenderness. no vertebral point tenderness. Const alert Resp normal respiratory effort and clear to auscultation bilaterally Cardio regular rate, regular rhythm, S1 normal heart sound and S2 normal heart sound GI normal to inspection, nondistended, normoactive bowel sounds and non-distended Extremity normal to inspection Skin no rashes or lesions noted Assessment & Plan Assessment/Plan (1) Back pain: QUALIFIERS: Back pain location: low back pain Chronicity: acute Back pain laterality: left Sciatica presence: without sciatica Qualified Code(s): M54.5 - Low back pain PLAN: 1. acute back pain * improving * appears to be due to paraspinal tenderness * change steroids to prednisone * add cyclobenzaprine * had good performance status prior to this * no recent trauma/falls 2. Debility * seen by PT, who feels pt requires additional therapy. Visit Charges OBSV E&M: 97713 Subsequent observation care L2
--- NOTE | 2020-12-08 14:22 | CASEMGMT ---
JOSEPHINE TORRES in to discuss discharge planning with patient. Patient states he would like HHC. Patient was provided a list of HHC providers including quality and resource use data and consistent with the patient?s preferred geographic region, medical needs, and insurance network. JOSEPHINE TORRES explained to patient that he will need to be home bound for HHC. Patient states he is not going to be home bound as he [facility] the [facility] at independent living everyday to exercise. Patient states that the HHC will not do him any good as he knows the exercises that he needs to do. JOSEPHINE TORRES inquired about therapy's recommendation of a rollator and patient states he is not ready for this either. Per chart patient was setup with [facility] when he discharged from TCU in October. JOSEPHINE TORRES inquired with patient if he is active with [facility]. Patient states he is at the rec center all the time and not sure if he has seen them. JOSEPHINE TORRES left message for [facility]. JOSEPHINE TORRES informed patient that should he reconsider HHC or rollator in the future to follow-up with PCP. Patient voiced understanding.
[2020-12-08 14:55] VITALS: BP 95/56; PULSE 71; RESP 16; TEMP 36.6; O2SAT 99
--- NOTE | 2020-12-08 16:25 | PCM.DC ---
Discharge Instructions Diet Discharge Diet: 2000 mg Sodium Diet Dressing / Incision Call your doctor if you observe: - (worsening back pain) Follow Up Care Test Results: Test results from this visit will be discussed in further detail at your follow-up appointment, if applicable. Discharge Plan Admission Admit Date/Time: 12/07/20 14:05 Attending Provider: Anuj Mcfadden Primary Care Provider: Prabhu Vee Discharge Orders/Prescriptions Prescriptions: New oxycodone 5 mg Tablet 5 mg PO Q6H PRN (Reason: pain (scale score 7-10)) 3 Days Qty: 12 RF: 0 prednisone 20 mg Tablet 40 mg PO BREAKFAST 4 Days Qty: 8 RF: 0 cyclobenzaprine 5 mg tablet 5 mg PO TID PRN (Reason: muscle spasm) Qty: 12 RF: 0 Continued Entresto 49-51 mg tablet 1 tablet PO BID Qty: 60 RF: 11 tamsulosin 0.4 mg capsule 0.8 mg PO BID RF: 0 omega-3 fatty acids 1,250 mg capsule 1,250 mg PO DAILY RF: 0 Oneil Multivitamin For Men 200-175-250 mcg tablet 1 tab PO DAILY RF: 0 vitamin E (dl, acetate) 450 mg (1,000 unit) capsule 450 mg PO DAILY RF: 0 mecobalamin (vitamin B12) 5,000 mcg tablet,disintegrating 5,000 mcg PO DAILY RF: 0 cholecalciferol (vitamin D3) 25 mcg (1,000 unit) tablet 25 mcg PO DAILY RF: 0 finasteride 5 MG tablet 5 mg PO DAILY RF: 0 rivaroxaban 15 MG tablet 15 mg PO DAILY RF: 0 citalopram 10 MG tablet 10 mg PO DAILY Qty: 30 RF: 0 acetaminophen 500 MG tablet 650 mg PO Q6H PRN PRN (Reason: Pain Score 1-10) RF: 0 potassium chloride 10 MEQ tablet 10 meq PO BIDCM Qty: 60 RF: 0 peg [id number]-ryukkajr 1 DRP bottle 2 drp EACH EYE PRN PRN (Reason: Dry Eyes) RF: 0 furosemide 40 mg Tablet 40 mg PO LUNCH RF: 0 furosemide 40 mg tablet 80 mg PO BREAKFAST RF: 0 carvedilol 12.5 mg tablet 12.5 mg PO BID Qty: 180 RF: 3 Referrals / Follow Up: Prabhu Vee MD [Primary Care Provider] - Within 1 Week Disposition Disposition (needs filled in before D/C Order can be placed): Home, self care
--- NOTE | 2020-12-08 16:32 | PCM.DC.SUM ---
Providers Date of Admission: 12/07/20 Primary Care Physician: Dr. Prabhu Vee MD Reason For Visit: LUMBAGO Diagnosis Discharge Diagnosis (1) Back pain: Status: Acute Code(s): M54.9 - Dorsalgia, unspecified Qualifiers: Back pain location: low back pain Chronicity: acute Back pain laterality: left Sciatica presence: without sciatica Qualified Code(s): M54.5 - Low back pain Medications at Discharge Home Medications finasteride 5 mg PO DAILY 09/22/20 rivaroxaban 15 mg PO DAILY 10/13/20 peg [id number]-ycwzebuf 2 drp EACH EYE PRN PRN 10/21/20 sacubitril 49 mg-valsartan 51 mg tablet 1 tablet PO BID #60 tablet 10/21/20 acetaminophen 650 mg PO Q6H PRN PRN tablet 10/31/20 citalopram 10 mg PO DAILY #30 tablet 10/31/20 potassium chloride 10 meq PO BIDCM #60 tablet 10/31/20 cholecalciferol (vitamin D3) 25 mcg (1,000 unit) tablet 25 mcg PO DAILY 11/24/20 mecobalamin (vitamin B12) 5,000 mcg disintegrating tablet 5,000 mcg PO DAILY 11/24/20 dkubmnia-bjt-aqwms 200 mcg-lycop 175 mcg-lutei 250 mcg-herb 178 tablet 1 tab PO DAILY 11/24/20 omega-3 fatty acids 1,250 mg capsule 1,250 mg PO DAILY 11/24/20 tamsulosin 0.4 mg capsule 0.8 mg PO BID cap 11/24/20 vitamin E (dl, acetate) 450 mg (1,000 unit) capsule 450 mg PO DAILY 11/24/20 carvedilol 12.5 mg tablet 12.5 mg PO BID #180 tab 11/28/20 furosemide 40 mg PO LUNCH 12/07/20 furosemide 80 mg PO BREAKFAST 12/07/20 cyclobenzaprine 5 mg PO TID PRN #12 tab 12/08/20 oxycodone 5 mg PO Q6H PRN 3 Days #12 tab 12/08/20 prednisone 40 mg PO BREAKFAST 4 Days #8 tab 12/08/20 Hospital Course Operations None Procedures None Summary of Care Provided Minutes Spent on Discharge: 30 Hospital Course: 85-year-old male presents with acute back pain. Back pain occurred spontaneously without any injury. Was very exquisite to the point where he had difficulty moving. EMS was contacted because the patient could not move and patient was brought to the hospital. Patient was started on narcotics as well as benzodiazepines and his pain is much improved. He is able to walk over 300 feet. On exam, his pain is more consistent with a muscle spasm in the left paraspinal muscle. Patient did have a CAT scan that did show no acute process. Home health care was offered to the patient, however he declined. ABG / Lab / Microbiology Data Result Diagrams: 12/07/20 08:57 12/07/20 08:57 D/C Instructions Discharge Diet: 2000 mg Sodium Diet Call your doctor if you observe: - (worsening back pain) Meaningful Use Info Meaningful Use Diagnoses (Choose all that apply): None applicable Discharge Plan Admission Admit Date/Time: 12/07/20 14:05 Attending Provider: Anuj Mcfadden Primary Care Provider: Prabhu Vee Discharge Orders/Prescriptions Prescriptions: New oxycodone 5 mg Tablet 5 mg PO Q6H PRN (Reason: pain (scale score 7-10)) 3 Days Qty: 12 RF: 0 prednisone 20 mg Tablet 40 mg PO BREAKFAST 4 Days Qty: 8 RF: 0 cyclobenzaprine 5 mg tablet 5 mg PO TID PRN (Reason: muscle spasm) Qty: 12 RF: 0 Continued Entresto 49-51 mg tablet 1 tablet PO BID Qty: 60 RF: 11 tamsulosin 0.4 mg capsule 0.8 mg PO BID RF: 0 omega-3 fatty acids 1,250 mg capsule 1,250 mg PO DAILY RF: 0 Oneil Multivitamin For Men 200-175-250 mcg tablet 1 tab PO DAILY RF: 0 vitamin E (dl, acetate) 450 mg (1,000 unit) capsule 450 mg PO DAILY RF: 0 mecobalamin (vitamin B12) 5,000 mcg tablet,disintegrating 5,000 mcg PO DAILY RF: 0 cholecalciferol (vitamin D3) 25 mcg (1,000 unit) tablet 25 mcg PO DAILY RF: 0 finasteride 5 MG tablet 5 mg PO DAILY RF: 0 rivaroxaban 15 MG tablet 15 mg PO DAILY RF: 0 citalopram 10 MG tablet 10 mg PO DAILY Qty: 30 RF: 0 acetaminophen 500 MG tablet 650 mg PO Q6H PRN PRN (Reason: Pain Score 1-10) RF: 0 potassium chloride 10 MEQ tablet 10 meq PO BIDCM Qty: 60 RF: 0 peg [id number]-dpbubuqn 1 DRP bottle 2 drp EACH EYE PRN PRN (Reason: Dry Eyes) RF: 0 furosemide 40 mg Tablet 40 mg PO LUNCH RF: 0 furosemide 40 mg tablet 80 mg PO BREAKFAST RF: 0 carvedilol 12.5 mg tablet 12.5 mg PO BID Qty: 180 RF: 3 Referrals / Follow Up: Prabhu Vee MD [Primary Care Provider] - Within 1 Week Disposition Disposition (needs filled in before D/C Order can be placed): Home, self care Visit Charges OBSV E&M: 71212 Observation care discharge
--- NOTE | 2020-12-08 16:39 | CASEMGMT ---
JOSEPHINE CM in to complete ALBERT form with patient. RN MELISSA explained ALBERT form to patient, patient voiced understanding. Patient signed ALBERT form and filed in chart. Patient provided with copy of signed ALBERT form. Patient had no further questions or concerns at this time.
[2020-12-08] MEDS: Rivaroxaban 15 MG Tablet PO (16:54)
[2020-12-08] MEDS: Calcium Carbonate 500 MG Tablet 1000 MG PO (16:57)
[2020-12-08 17:10] VITALS: BP 116/67; PULSE 72; RESP 16; O2SAT 98
== END 2020-12-08 19:44 | disposition home or self-care (01) ==
LOC: ED 13:45 → MS3 13:59
PROVIDERS: Admitting Provider Internal Medicine; Emergency Provider Emergency Medicine; PCP Family Medicine
DX: M54.5 Low back pain (principal); I25.5 Ischemic cardiomyopathy; I25.10 Atherosclerotic heart disease of native coronary artery without angina pectoris; I48.92 Unspecified atrial flutter; I27.20 Pulmonary hypertension, unspecified; N18.31 Chronic kidney disease, stage 3a; I13.0 Hypertensive heart and chronic kidney disease with heart failure and stage 1 through stage 4 chronic kidney disease, or unspecified chronic kidney disease; I48.20 Chronic atrial fibrillation, unspecified; I50.22 Chronic systolic (congestive) heart failure; D69.6 Thrombocytopenia, unspecified; F32.9 Major depressive disorder, single episode, unspecified; I25.2 Old myocardial infarction; Z95.810 Presence of automatic (implantable) cardiac defibrillator; Z79.899 Other long term (current) drug therapy; Z87.891 Personal history of nicotine dependence; Z95.1 Presence of aortocoronary bypass graft; Z95.2 Presence of prosthetic heart valve; N40.0 Benign prostatic hyperplasia without lower urinary tract symptoms; Z79.01 Long term (current) use of anticoagulants
CPT/HCPCS: 74177; 80053; 81001; 85025; 96374; 96375; 96376; 97162; 97166; 99218; 99285; Q9967; A4216; G0378; J2405

== ENCOUNTER 2020-12-15 17:55 | Observation (INO) | payer MEDICARE, OTHER, SELFPAY ==
[2020-12-07 15:19] VITALS: BMI 27.3
[2020-12-15 17:56] VITALS: BP 110/76; PULSE 81; RESP 18; TEMP 36.9; O2SAT 99; BMI 26.6
--- NOTE | 2020-12-15 18:32 | EDS_ITS ---
HPI History of Present Illness Chief Complaint: Back Narrative Narrative: Patient is an 85-year-old male who presents with low back pain. He was recently admitted for intractable back pain. With medications he had improved and was able to ambulate. Per discharge summary he was able to ambulate 300 feet. Home health was recommended which the patient declined. Patient now returns due to recurrent intractable back pain. He states the oxycodone that he was discharged on helped a little bit. He is not taking Tylenol and his pain is inadequately controlled and he is unable to ambulate. No fevers. No abdominal pain. No extremity paresthesias or weakness. No urinary retention or fecal incontinence [facility] History (Updated 12/15/20 @ 19:[address] Mo Becerra MD) Atherosclerosis of coronary artery of [place] heart without angina pectoris Cancer Chest pain Coronary artery disease Depression Former smoker Hypertension Irregular heart beat Ischemic cardiomyopathy Myocardial infarct Pacemaker Home Medications finasteride 5 mg PO DAILY 09/22/20 [History Last Taken 10/10/20] rivaroxaban 15 mg PO DAILY 10/13/20 [History Last Taken Unknown] peg [id number] 2 drp EACH EYE PRN PRN 10/21/20 [History Last Taken Unknown] sacubitril 49 mg-valsartan 51 mg tablet 1 tablet PO BID #60 tablet 10/21/20 [Rx Last Taken Unknown] acetaminophen 650 mg PO Q6H PRN PRN tablet 10/31/20 [Rx Last Taken Unknown] citalopram 10 mg PO DAILY #30 tablet 10/31/20 [Rx Last Taken Unknown] potassium chloride 10 meq PO BIDCM #60 tablet 10/31/20 [Rx Last Taken Unknown] cholecalciferol (vitamin D3) 25 mcg (1,000 unit) tablet 25 mcg PO DAILY 11/24/20 [History Last Taken Unknown] mecobalamin (vitamin B12) 5,000 mcg disintegrating tablet 5,000 mcg PO DAILY 11/24/20 [History Last Taken Unknown] qxdndjqk-ior-dviop 200 mcg-lycop 175 mcg-lutei 250 mcg-herb 178 tablet 1 tab PO DAILY 11/24/20 [History Last Taken Unknown] omega-3 fatty acids 1,250 mg capsule 1,250 mg PO DAILY 11/24/20 [History Last Taken Unknown] tamsulosin 0.4 mg capsule 0.8 mg PO BID cap 11/24/20 [History Last Taken Unknown] vitamin E (dl, acetate) 450 mg (1,000 unit) capsule 450 mg PO DAILY 11/24/20 [History Last Taken Unknown] carvedilol 12.5 mg tablet 12.5 mg PO BID #180 tab 11/28/20 [Rx Last Taken Unknown] cyclobenzaprine 5 mg PO TID PRN #12 tab 12/08/20 [Rx Last Taken Unknown] oxycodone 5 mg PO Q6H PRN 3 Days #12 tab 12/08/20 [Rx Last Taken Unknown] prednisone 40 mg PO BREAKFAST 4 Days #8 tab 12/08/20 [Rx Last Taken Unknown] furosemide 40 mg tablet 40 mg PO BID tab 12/11/20 [History Last Taken Unknown] Allergy/AdvReac Type Severity Reaction Status Date / Time ofloxacin [From Floxin] Allergy migraine Verified 12/15/20 17:57 diphenhydramine AdvReac shuts off Verified 12/15/20 17:57 [From Benadryl] my urine Family History (Reviewed 12/07/20 @ 14:14 by Solange Hurst MANAGER INVESTMENT BANKING, MANAGER INVE[employer]MENT [employer]ANKING-C) Mother Heart problem Brother Dialysis patient Surgical History H/O colectomy History of back surgery History of benign neoplasm of salivary gland History of cataract extraction History of coronary artery bypass graft History of open heart surgery History of umbilical hernia repair ICD (implantable cardioverter-defibrillator) in place Social History (Reviewed 12/07/20 @ 14:14 by Solange Hurst MANAGER INVE[employer]MENT BANKING, MANAGER IN[employer]MENT [employer]ING-C) Smoking Status: Former smoker how long ago did patient quit smokin alcohol intake: never substance use type: does not use well-balanced diet: other details: Fluid restrictions 48 ozs per day caffeine: Yes Type: coffee Number of servings: 1 ROS ROS ED Constitutional Constitutional ED: Denies fever(s) Eyes Eyes: Denies change in vision Cardiovascular Cardiovascular: Denies chest pain Respiratory/Chest Respiratory/Chest: Denies dyspnea Gastrointestinal Gastrointestinal: Denies abdominal pain Musculoskeletal Musculoskeletal: Reports back pain Integumentary Denies rash Neurologic Neurologic: Denies headache(s) EXAM Physical Exam Const Vital Signs: 12/15/20 17:56 12/15/20 18:59 Temperature 98.4 F Temperature Source Oral Pulse Rate 81 71 Respiratory Rate 18 16 Blood Pressure 110/76 108/62 Blood Pressure Mean 87 77 Pulse Ox 99 97 Oxygen Delivery Method Nasal Cannula Room Air Oxygen Flow Rate (L/min) 2 Positive well nourished and well developed General Appearance ED: well developed HEENT Reports moist mucous membranes Eyes EOMs intact bilaterally Neck supple Chest Wall inspection of chest normal Resp normal respiratory effort Cardio regular rate and regular rhythm GI non-tender and non-distended Palpation: soft Back/Spine Back/Spine Narrative: Patient has diffuse lower back tenderness Extremity Extremity Narrative: Normal strength and sensation of the lower extremities with 5 out of 5 dorsiflexion and plantarflexion, negative straight leg raise bilaterally Neuro Sensorium / Orientation: alert Skin no rashes or lesions noted MDM MDM MDM Narrative Medical decision making narrative: Lumbar x-rays show degenerative changes. CBC BMP unremarkable. Patient feels he may need to do rehab and is agreeable to this. He is willing to participate in therapy. Social work is not here at this time so I spoke to the hospitalist who agrees to place in observation. Lab Data Labs: Laboratory Results - last 24 hr 12/15/20 12/15/20 18:50 18:50 WBC 6.1 RBC 4.13 L Hgb 13.9 Hct 43.7 MCV 105.8 H MCH 33.7 H MCHC 31.8 L RDW Std Deviation 52.4 H RDW Coeff of Daryl 13.3 Plt Count 187 MPV 10.5 Immature Gran % (Auto) 0.800 Neut % (Auto) 67.4 Lymph % (Auto) 14.0 L [place] % (Auto) 15.4 H Eos % (Auto) 1.7 Baso % (Auto) 0.7 Absolute Neuts (auto) 4.1 Absolute Lymphs (auto) 0.85 Nucleated RBC % 0 Sodium 137 Potassium 4.5 Chloride 96 L Carbon Dioxide 37.0 H Anion Gap 4 L BUN 38 H Creatinine 1.73 H Estim Creat Clear Calc 27.16 Est GFR (MDRD) Af Amer 48 L Est GFR (MDRD) Non-Af 40 L BUN/Creatinine Ratio 22.0 H Glucose 152 H Calcium 9.1 Radiography Diagnostic Testing: Radiology Impression Lumbar Spine X-Ray 12/15/20 19:23 IMPRESSION: Degenerative changes of the spine, as detailed above. Electronically Signed: Prabhu Brewer MD at 19:43 EDT Tel , Service support , Discharge Plan Triage Chief Complaint: Back ED Provider: Mo Becerra Dx/Rx/DC Orders Clinical Impression: Intractable back pain Prescriptions: No Action Entresto 49-51 mg tablet 1 tablet PO BID Qty: 60 RF: 11 tamsulosin 0.4 mg capsule 0.8 mg PO BID RF: 0 omega-3 fatty acids 1,250 mg capsule 1,250 mg PO DAILY RF: 0 Oneil Multivitamin For Men 200-175-250 mcg tablet 1 tab PO DAILY RF: 0 vitamin E (dl, acetate) 450 mg (1,000 unit) capsule 450 mg PO DAILY RF: 0 mecobalamin (vitamin B12) 5,000 mcg tablet,disintegrating 5,000 mcg PO DAILY RF: 0 cholecalciferol (vitamin D3) 25 mcg (1,000 unit) tablet 25 mcg PO DAILY RF: 0 finasteride 5 MG tablet 5 mg PO DAILY RF: 0 rivaroxaban 15 MG tablet 15 mg PO DAILY RF: 0 citalopram 10 MG tablet 10 mg PO DAILY Qty: 30 RF: 0 acetaminophen 500 MG tablet 650 mg PO Q6H PRN PRN (Reason: Pain Score 1-10) RF: 0 potassium chloride 10 MEQ tablet 10 meq PO BIDCM Qty: 60 RF: 0 peg [id number] 1 DRP bottle 2 drp EACH EYE PRN PRN (Reason: Dry Eyes) RF: 0 prednisone 20 mg Tablet 40 mg PO BREAKFAST 4 Days Qty: 8 RF: 0 cyclobenzaprine 5 mg tablet 5 mg PO TID PRN (Reason: muscle spasm) Qty: 12 RF: 0 oxycodone 5 mg tablet 5 mg PO Q6H PRN (Reason: pain (scale score 7-10)) 3 Days Qty: 12 RF: 0 carvedilol 12.5 mg tablet 12.5 mg PO BID Qty: 180 RF: 3 furosemide 40 mg tablet 40 mg PO BID RF: 0 Primary Care Provider: Prabhu Vee Referrals: Prabhu Vee MD [Primary Care Provider] - Disposition Disposition: Acute Care [facility]
[2020-12-15] MEDS: Ondansetron 4 MG/2 ML Vial IV (18:55)
[2020-12-15] MEDS: Morphine 4 MG/ML Syringe IV (18:55)
[2020-12-15 18:59] VITALS: BP 108/62; PULSE 71; RESP 16; O2SAT 97
[2020-12-15 19:10] LABS: Absolute Lymphocyte Count 0.85 X10^3/uL (0.83-4.51); Absolute Neutrophil Count 4.1 X10^3/uL (2.0-7.7); Basophil# 0.04 X10^3/uL; Basophil% 0.7 % (0-1); Eosinophils% 1.7 % (0-5); Hematocrit 43.7 % (40-54); Hemoglobin 13.9 g/dL (13.0-16.5); Lymphocyte # 0.85 X10^3/ul (0.83-4.51); Mean Corp Hgb Conc 31.8 g/dL (32-36); Mean Corpuscular Hgb 33.7 pg (27.0-32.0); Mean Corpuscular Volume 105.8 fL (80-94); Mean Platelet Vol. 10.5 fl (6.2-12.0); Monocyte# 0.93 X10^3/uL; Monocyte% 15.4 % (0-10); NRBC Flagged by Analyzer 0 % (0-5); Neutrophil # 4.08 X10^3/uL (2.7-7.7); Neutrophil % 67.4 % (47-70); Platelet Count 187 K/mm3 (150-450); RBC Distribution Width CV 13.3 % (11.6-14.6); RBC Distribution Width SD 52.4 fl (35.1-43.9); Red Blood Count 4.13 M/mm3 (4.6-6.2); White Blood Count 6.1 K/mm3 (4.4-11.0)
--- NOTE | 2020-12-15 19:23 | RAD_ITS ---
STUDY: X-RAY - LUMBAR SPINE REASON FOR EXAM: Male, 85 years old. Back pain TECHNIQUE: 3 view(s) of the lumbar spine were obtained. COMPARISON: None FINDINGS: Normal lumbar lordosis. There is no substantial scoliosis. There is a normal alignment of the vertebrae. There is multilevel endplate spondylosis of the lumbar vertebrae. There is multi-level degenerative disc disease with multi-level disc space narrowing. The soft tissue structures are unremarkable. RAD/Lumbar Spine 2 or 3 Views IMPRESSION: Degenerative changes of the spine, as detailed above. Electronically Signed: Prabhu Brewer MD at 19:43 EDT Tel , Service support ,
[2020-12-15 19:29] LABS: Anion Gap 4 (5-15); BUN 38 mg/dL (7-18); Calcium,Total 9.1 mg/dL (8.5-10.1); Chloride 96 mmol/L (98-107); Creatinine, Serum 1.73 mg/dL (0.70-1.30); EST Glomerular Filtration Rate 40 mL/min (>60); Est Glom Filt Rate - Afr Amer 48 mL/min (>60); Estimated Creatinine Clearance 27.16 ml/min; Glucose 152 mg/dL (74-106); Potassium 4.5 mmol/L (3.5-5.1); Sodium Level 137 mmol/L (136-145)
--- NOTE | 2020-12-15 20:11 | HP.PCM.HOS_ITS ---
[facility] - General General Date of Admission: 12/15/20 Date of Service: 12/15/20 Chief Complaint: Back pain, difficulty ambulating. [facility] Narrative ERIK ARCHER, is a 85 M with past medical history as mentioned above presented to the emergency room because of persistent back pain. Patient discharged from the hospital 1 week ago after admission for acute intractable back pain, treated medically and he was discharged home. He refused to have home health services. He returned back to day with persistent back pain, lower mid back pain, desc ribed as muscle spasm, sharp pain, 9 out of 10 in severity, aggravated by any type of movement, associated with difficulty ambulating and without relieving factors. He denied mechanical fall or trauma. He denied tingling or numbness, no paresthesia. He denied focal leg weakness. He denied bladder or bowel incontinence. He was discharged on prednisone, oxycodone and Flexeril but his pain did not improve. He lives alone at home and he has been having difficulties ambulating in the care of himself. In the emergency department, his vital signs were stable, was afebrile. Routine blood work was remarkable for BUN of 38, creatinine is 1.73 and those are chronic. X-ray of the lumbar spine revealed degenerative changes of the spine, no acute findings. He had CT scan abdomen and pelvis with IV contrast on the last admission on December 07, 2020 that showed no acute abnormality, it was not designed for lumbar spine. Patient is being admitted for intractable low back pain and debility and probably would need placement to long term facility. [facility] Medical History (Updated 12/15/20 @ 20:[address] Tony Arciniega MD) Atherosclerosis of coronary artery of [place] heart without angina pectoris Cancer Coronary artery disease Depression Former smoker Hypertension Ischemic cardiomyopathy Pacemaker Home Medications finasteride 5 mg PO DAILY 09/22/20 [History Last Taken 10/10/20] rivaroxaban 15 mg PO DAILY 10/13/20 [History Last Taken Unknown] peg [id number]-[id number] 2 drp EACH EYE PRN PRN 10/21/20 [History Last Taken Unknown] sacubitril 49 mg-valsartan 51 mg tablet 1 tablet PO BID #60 tablet 10/21/20 [Rx Last Taken Unknown] acetaminophen 650 mg PO Q6H PRN PRN tablet 10/31/20 [Rx Last Taken Unknown] citalopram 10 mg PO DAILY #30 tablet 10/31/20 [Rx Last Taken Unknown] potassium chloride 10 meq PO BIDCM #60 tablet 10/31/20 [Rx Last Taken Unknown] cholecalciferol (vitamin D3) 25 mcg (1,000 unit) tablet 25 mcg PO DAILY 11/24/20 [History Last Taken Unknown] mecobalamin (vitamin B12) 5,000 mcg disintegrating tablet 5,000 mcg PO DAILY 11/24/20 [History Last Taken Unknown] nitxvkhb-jjm-mhjqh 200 mcg-lycop 175 mcg-lutei 250 mcg-herb 178 tablet 1 tab PO DAILY 11/24/20 [History Last Taken Unknown] omega-3 fatty acids 1,250 mg capsule 1,250 mg PO DAILY 11/24/20 [History Last Taken Unknown] tamsulosin 0.4 mg capsule 0.8 mg PO BID cap 11/24/20 [History Last Taken U nknown] vitamin E (dl, acetate) 450 mg (1,000 unit) capsule 450 mg PO DAILY 11/24/20 [History Last Taken Unknown] carvedilol 12.5 mg tablet 12.5 mg PO BID #180 tab 11/28/20 [Rx Last Taken Unknown] cyclobenzaprine 5 mg PO TID PRN #12 tab 12/08/20 [Rx Last Taken Unknown] oxycodone 5 mg PO Q6H PRN 3 Days #12 tab 12/08/20 [Rx Last Taken Unknown] prednisone 40 mg PO BREAKFAST 4 Days #8 tab 12/08/20 [Rx Last Taken Unknown] furosemide 40 mg tablet 40 mg PO BID tab 12/11/20 [History Last Taken Unknown] Allergy/AdvReac Type Severity Reaction Status Date / Time ofloxacin [From Floxin] Allergy migraine Verified 12/15/20 17:57 diphenhydramine AdvReac shuts off Verified 12/15/20 17:57 [From Benadryl] my urine Family History Mother Heart problem Brother Dialysis patient Surgical History H/O colectomy History of back surgery History of benign neoplasm of salivary gland History of cataract extraction History of coronary artery bypass graft History of open heart surgery History of umbilical hernia repair ICD (implantable cardioverter-defibrillator) in place Social History (Reviewed 12/07/20 @ 14:14 by Solange Hurst SENIOR NETWORK ENGINEER, SENIOR NETWORK ENGINEER-C) Smoking Status: Former smoker how long ago did patient quit smokin's alcohol intake: never substance use type: does not use well-balanced diet: other details: Fluid restrictions 48 ozs per day caffeine: Yes Type: coffee Number of servings: 1 ROS Constitutional Constitutional: Denies anorexia, chills, fatigue, fever(s) or malaise Eyes Eyes: Denies blurry vision, change in eye color, change in vision, double vision or eye pain ENT HEENT: Denies ear pain, epistaxis, headache(s), nasal congestion, post nasal drip or sore throat Cardiovascular Cardiovascular: Denies chest pain, dyspnea on exertion, edema, lightheadedness, orthopnea, palpitations, paroxysmal nocturnal dyspnea or syncope Respiratory/Chest Respiratory/Chest: Denies cough, dyspnea, hemoptysis, productive cough, shortness of breath at rest, shortness of breath with exertion or wheezing Gastrointestinal Gastrointestinal: Denies abdominal pain, constipation, diarrhea, hematemesis, hematochezia, melena, nausea or vomiting Genitourinary Genitourinary: Denies burning urination, dysuria, hematuria, urinary hesitancy or urinary urgency Musculoskeletal Musculoskeletal: Reports back pain and other Details: Muscle spasm. ; Denies arthralgias, joint pain, joint swelling, myalgias or neck pain Neurologic Neurologic: Denies confusion, dizziness, focal weakness, headache(s), numbness, paresthesias, seizures, tingling or tremor(s) Psychiatric Psychiatric: Reports depression; Denies anxiety, hallucinations, homicidal ideation or suicidal ideation Endocrine Endocrinology: Denies change in body appearance, cold intolerance, heat intolerance, polydipsia or polyuria Hematologic/Lymphatic Hematologic/Lymphatic: Denies easy bleeding, easy bruising or lymphadenopathy Allergic/Immunologic Allergic/Immunologic: Denies itchy eyes, rhinitis, throat swelling, tongue swelling, hives, urticaria or wheezing Vital Signs Vital Signs Vital Signs: 12/15/20 17:56 12/15/20 18:59 Temperature 98.4 F Temperature Source Oral Pulse Rate 81 71 Respiratory Rate 18 16 Blood Pressure 110/76 108/62 Blood Pressure Mean 87 77 Pulse Ox 99 97 Oxygen Delivery Method Nasal Cannula Room Air Oxygen Flow Rate (L/min) 2 Weight Weight: 160 lb Body Mass Index (BMI) 26.6 Physical Exam Const alert, oriented x3, no apparent distress and no limitations General Appearance: cooperative, comfortable and well kempt HEENT normocephalic, head/scalp atraumatic and moist oral mucous membranes Head and Scalp: normocephalic and atraumatic Eyes PERRL, EOMs intact bilaterally, conjunctivae normal and no scleral icterus General Eye: normal appearance of both eyes Periorbital: periorbital findings normal Neck no lymphadenopathy, supple, no meningeal signs, no JVD and no carotid bruits General: trachea midline Thyroid: thyroid normal Resp normal respiratory effort, normal air movement and clear to auscultation bilaterally Auscultation: Negative for crackles, rales, rhonchi or wheezes Cardio S1 normal heart sound, S2 normal heart sound, no murmurs and no JVD Cardio Narrative: Irregular rate and rhythm. Peripheral Pulses: pulses 2+ throughout GI normal to inspection, nondistended, normoactive bowel sounds, soft to palpation, non-tender and non-distended; Negative for hepatosplenomegaly Auscultation: normoactive bowel sounds Extremity normal to inspection and full ROM Extremity Narrative: Trace edema, no clubbing or cyanosis. Skin no rashes or lesions noted, no wounds and no petechiae Neuro oriented x3, CN's II-XII intact bilaterally and moves all extremities Sensorium / Orientation: alert Speech: speech normal Motor Exam: strength 5/5 throughout Psych mental status grossly normal, affect normal and denies hallucinations Appearance: appropriate Lab / Micro Data Result Diagrams: 12/15/20 18:50 12/15/20 18:50 Labs: Laboratory Results - last 24 hr 12/15/20 12/15/20 18:50 18:50 WBC 6.1 RBC 4.13 L Hgb 13.9 Hct 43.7 MCV 105.8 H MCH 33.7 H MCHC 31.8 L RDW Std Deviation 52.4 H RDW Coeff of Daryl 13.3 Plt Count 187 MPV 10.5 Immature Gran % (Auto) 0.800 Neut % (Auto) 67.4 Lymph % (Auto) 14.0 L [place] % (Auto) 15.4 H Eos % (Auto) 1.7 Baso % (Auto) 0.7 Absolute Neuts (auto) 4.1 Absolute Lymphs (auto) 0.85 Nucleated RBC % 0 Sodium 137 Potassium 4.5 Chloride 96 L Carbon Dioxide 37.0 H Anion Gap 4 L BUN 38 H Creatinine 1.73 H Estim Creat Clear Calc 27.16 Est GFR (MDRD) Af Amer 48 L Est GFR (MDRD) Non-Af 40 L BUN/Creatinine Ratio 22.0 H Glucose 152 H Calcium 9.1 Radiology Impression Lumbar Spine X-Ray 12/15/20 19:23 IMPRESSION: Degenerative changes of the spine, as detailed above. Electronically Signed: Prabhu Brewer MD at 19:43 EDT Tel , Service support , Assessment & Plan Assessment/Plan (1) Intractable back pain: (2) Debility: (3) Atrial flutter: QUALIFIERS: Atrial flutter type: unspecified Qualified Code(s): I48.92 - Unspecified atrial flutter (4) Stage 3b chronic kidney disease: (5) Benign prostatic hyperplasia: (6) Paroxysmal atrial fibrillation: (7) History of coronary artery bypass graft: (8) Atherosclerosis of coronary artery of [place] heart without angina pectoris: (9) Chronic respiratory failure with hypoxia: PLAN: This is an 85 years old male patient presented to the emergency room because of persistent back pain with difficulty ambulating, was discharged from the hospital 1 week ago after admission for acute intractable low back pain, has been on prednisone, Flexeril and oxycodone without improvement and is being admitted for treatment and will need placement to long term facility. #1 acute intractable low back pain/debility: X-ray of the lumbar spine reviewed as above. He had CT scan abdomen and pelvis with IV contrast on December 07, 2020, reviewed, no acute findings. Patient has been on prednisone, oxycodone and Flexeril for the last week with no improvement. Plan: Admit to [facility] close observation, Flexeril 3 times daily, oxycodone as needed, IV morphine as needed, Lidoderm patch topically, Tylenol as needed, Zofran as needed, PT OT evaluation and treatment, case management consult for placement to long term facility. At this time, I do not think patient will need any more imaging. #2 chronic biventricular heart failure/ischemic cardiomyopathy: Status post ICD. Clinically stable, compensated. On home oxygen at 2 L, stable at baseline. Continue Coreg, Lasix and Entresto. #3 stage IIIb chronic kidney disease: #4 chronic atrial fibrillation/atrial flutter: Heart rate stable, continue Coreg for rate control and Xarelto for anticoagulation. #5 hypertension: Blood pressure stable, continue Coreg and Entresto. #6 CAD status post CABG: Stable, no complaints. Continue Coreg and Entresto. #7 chronic hypoxic respiratory failure: On home oxygen at 2 L. Currently, he is on 2 L, stable at baseline. #8 benign prostatic hypertrophy: Continue Flomax and Proscar. #9 DVT prophylaxis: Continue Xarelto. This note was generated with Sharethrough dictation software. It may contain incorrect words, spelling, and punctuation that were not noted in checking the note before signing. Visit Charges OBSV E&M: 53276 Initial observation care L3
[2020-12-15 20:12] VITALS: BP 126/72; PULSE 72; RESP 18; TEMP 36.9; O2SAT 96
[2020-12-15 20:54] VITALS: O2SAT 98
[2020-12-15 20:59] VITALS: BP 126/67; PULSE 87; RESP 18; TEMP 36.4; O2SAT 93
[2020-12-15] MEDS: Morphine 2 MG/ML Syringe IV (21:07)
[2020-12-15] MEDS: 0.9% Saline Lock 10 ML Syringe IV (21:07)
[2020-12-15 21:11] VITALS: BMI 27.5
[2020-12-15] MEDS: cycloBENZAPRine HCl 5 MG TABLET PO (21:43)
[2020-12-15] MEDS: SACUBITRIL/VALSARTAN 49-51 MG TABLET 1 EACH PO (21:44)
[2020-12-15] MEDS: Tamsulosin HCl 0.4 MG Capsule 0.8 MG PO (21:44)
[2020-12-15] MEDS: Carvedilol 12.5 MG Tablet PO (21:44)
[2020-12-15] MEDS: Acetaminophen 325 MG Tablet 650 MG PO (22:39)
[2020-12-15] MEDS: oxyCODONE 5 MG Tablet PO (22:39)
[2020-12-16 02:59] VITALS: BP 129/72; PULSE 73; RESP 16; TEMP 36.8; O2SAT 95
[2020-12-16] MEDS: cycloBENZAPRine HCl 5 MG TABLET PO ×2 (05:43→14:46)
[2020-12-16] MEDS: oxyCODONE 5 MG Tablet PO (05:45)
[2020-12-16] MEDS: Acetaminophen 325 MG Tablet 650 MG PO ×2 (05:46→14:46)
[2020-12-16 06:48] LABS: Anion Gap 3 (5-15); BUN 33 mg/dL (7-18); BUN/Creat Ratio 22.9 RATIO (10-20); Calcium,Total 8.4 mg/dL (8.5-10.1); Chloride 101 mmol/L (98-107); Creatinine, Serum 1.44 mg/dL (0.70-1.30); EST Glomerular Filtration Rate 50 mL/min (>60); Est Glom Filt Rate - Afr Amer 60 mL/min (>60); Estimated Creatinine Clearance 32.62 ml/min; Glucose 109 mg/dL (74-106); Potassium 4.2 mmol/L (3.5-5.1); Sodium Level 140 mmol/L (136-145)
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
[2020-12-16 08:02] VITALS: O2SAT 98
[2020-12-16] MEDS: 0.9% Saline Lock 10 ML Syringe IV (08:24)
[2020-12-16] MEDS: Senna/Docusate Sodium 1 Tablet 2 TABLET PO (08:24)
[2020-12-16] MEDS: Morphine 2 MG/ML Syringe IV (08:24)
[2020-12-16] MEDS: Finasteride 5 MG Tablet PO (08:25)
[2020-12-16] MEDS: Furosemide 40 MG Tablet PO (08:25)
[2020-12-16] MEDS: SACUBITRIL/VALSARTAN 49-51 MG TABLET 1 EACH PO (08:25)
[2020-12-16] MEDS: Citalopram 10 MG Tablet PO (08:25)
[2020-12-16] MEDS: Carvedilol 12.5 MG Tablet PO (08:25)
[2020-12-16] MEDS: Tamsulosin HCl 0.4 MG Capsule 0.8 MG PO (08:25)
[2020-12-16 09:48] VITALS: BP 103/62; PULSE 74; RESP 18; TEMP 36.5; O2SAT 99
[2020-12-16] MEDS: Lidocaine 5% Patch 2 PATCH TOPICAL (10:02)
[2020-12-16] MEDS: oxyCODONE 5 MG Tablet 10 MG PO ×2 (10:13→14:47)
--- NOTE | 2020-12-16 11:09 | CASEMGMT ---
Social Work Assessment Referral Date: 12/16/2020 Date of Assessment: 12/16/2020 Reason for consult: SNF placement Informant: MD Personal Status: SW met with pt to complete initial assessment. Pt is alert and orientated and answers questions appropriately. Living Arrangements: Pt states he lives alone in a townhouse with no steps. Pt states it is independent living through [facility]. DME: Walker, Battery operated concentrator through [employer] PCP: Prabhu Vee in [facility] Pharmacy: [facility] in [place] ADLs: Pt states he was independent with ADLS, states he still drives. Pt states [facility]. Substance Abuse Hx: Pt denied Mental Health Hx: Pt denied HHC: Pt states he has had HHC in the past, states [facility] sent HHC to pt. SNF: Pt states he has been to [facility] before SW spoke with pt regarding discharge plans and recommendation is SNF. Patient was provided a list of SNF providers including quality and resource use data and consistent with the patient?s preferred geographic region, medical needs, and insurance network. Pt's preferred provider is [facility]. BETY explained referral process and that this worker will make referral to [facility]. BETY also received note that pt's son Stevan is requesting a call back. BETY updated pt that pt's son Stevan would like to be called. BETY placed a call to pt's son Stevna. Stevan states he spoke with a family member who is a retired RN and they want pt to go to [facility] for skilled time. BETY informed Stevan that pt is alert and orientated, is own person, and able to make own decisions so this worker has to go by pt's choices and decisions. Stevan asked if pt was informed about [facility]. BETY informed Stevan that pt was provided a list of all the SNF in [facility] (which had [facility] on it) and pt's preferred choice was [facility]. Stevan states so that's what you have to go by, pt is sound of mind, and able to make his own decisions. BETY informed Stevan that yes this worker has to go by pt's choice as pt is own person, able to make own decisions. BETY informed Stevan that pt may be discharged to TCU later today if medically cleared. BETY placed a call to [facility] with TCU and provided referral. Plan: TCU pending acceptance Sandy Amador MSW, HEAD SOFT SUGAR OPERATOR
--- NOTE | 2020-12-16 11:20 | CASEMGMT ---
JOSEPHINE TORRES received call from Ekta BURTON with [facility]. Patient is active with [facility] and they will continue to follow him after discharge. JOSEPHINE TORRES updated BETY Amador.
--- NOTE | 2020-12-16 11:49 | PCM.DC.SUM ---
Providers Date of Admission: 12/15/20 Primary Care Physician: Dr. Prabhu Vee MD Reason For Visit: INTRACTABLE LOW BACK PAIN, DEBILITY Diagnosis Discharge Diagnosis (1) Intractable back pain: Status: Acute Code(s): M54.9 - Dorsalgia, unspecified (2) Debility: Status: Acute Code(s): R53.81 - Other malaise (3) Atrial flutter: Status: Chronic Code(s): I48.92 - Unspecified atrial flutter Qualifiers: Atrial flutter type: unspecified Qualified Code(s): I48.92 - Unspecified atrial flutter (4) Stage 3b chronic kidney disease: Status: Chronic Code(s): N18.32 - Chronic kidney disease, stage 3b (5) Benign prostatic hyperplasia: Status: Chronic Code(s): N40.0 - Benign prostatic hyperplasia without lower urinary tract symptoms (6) Paroxysmal atrial fibrillation: Status: Acute Code(s): I48.0 - Paroxysmal atrial fibrillation (7) History of coronary artery bypass graft: Status: Chronic Code(s): Z95.1 - Presence of aortocoronary bypass graft (8) Atherosclerosis of coronary artery of [place] heart without angina pectoris: Status: Chronic Code(s): I25.10 - Atherosclerotic heart disease of [place] coronary artery without angina pectoris (9) Chronic respiratory failure with hypoxia: Status: Chronic Code(s): J96.11 - Chronic respiratory failure with hypoxia Medications at Discharge Home Medications finasteride 5 mg PO DAILY 09/22/20 rivaroxaban 15 mg PO DAILY 10/13/20 peg 106-[id number]-zicmcgfs 2 drp EACH EYE PRN PRN 10/21/20 sacubitril 49 mg-valsartan 51 mg tablet 1 tablet PO BID #60 tablet 10/21/20 acetaminophen 650 mg PO Q6H PRN PRN tablet 10/31/20 citalopram 10 mg PO DAILY #30 tablet 10/31/20 potassium chloride 10 meq PO BIDCM #60 tablet 10/31/20 cholecalciferol (vitamin D3) 25 mcg (1,000 unit) tablet 25 mcg PO DAILY 11/24/20 mecobalamin (vitamin B12) 5,000 mcg disintegrating tablet 5,000 mcg PO DAILY 11/24/20 lcanxbdf-tru-jwllc 200 mcg-lycop 175 mcg-lutei 250 mcg-herb 178 tablet 1 tab PO DAILY 11/24/20 omega-3 fatty acids 1,250 mg capsule 1,250 mg PO DAILY 11/24/20 tamsulosin 0.4 mg capsule 0.8 mg PO BID cap 11/24/20 vitamin E (dl, acetate) 450 mg (1,000 unit) capsule 450 mg PO DAILY 11/24/20 carvedilol 12.5 mg tablet 12.5 mg PO BID #180 tab 11/28/20 prednisone 40 mg PO BREAKFAST 4 Days #8 tab 12/08/20 furosemide 40 mg tablet 40 mg PO BID tab 12/11/20 Remove Patch 1 patch TOPICAL DAILY@2200 #0 12/16/20 cyclobenzaprine 5 mg PO TID #0 tab 12/16/20 lidocaine 2 patch TOPICAL DAILY #0 ea 12/16/20 oxycodone 10 mg PO Q4H PRN PRN 2 Days #8 tab NS 12/16/20 Hospital Course Summary of Care Provided Minutes Spent on Discharge: 35 Hospital Course: 85-year-old gentleman recently discharged from the hospital following admission for intractable back pain who presented back to the ED with worsening symptoms. Imaging studies demonstrated degenerative joint disease admitted to the regular nursing floor for symptom management 1. Acute intractable low back pain ?Secondary to degenerative joint disease. Admitted to regular nursing floor for symptom management 2. Physical deconditioning - Requested for PT OT eval and social and political studies professor to assist with discharge planning 3. 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 Ischemic cardiomyopathy ?Status post AICD placement 5. Chronic hypoxic respiratory failure ?Patient is on baseline home oxygen 6. Chronic kidney disease stage IIIb ?Kidney function at baseline 7. Chronic A. fib/flutter ?Heart rate controlled on Coreg. Also on systemic anticoagulation with Xarelto 8. Hypertension - Blood pressure controlled, home medications continued with dose adjustment as needed 9. Coronary artery disease ?With previous CABG 10. BPH ?Patient is on both Flomax and Proscar discontinued 11. DVT prophylaxis on Xarelto Physical Exam Narrative HEENT: Atraumatic; EYES; Anicteric, Normal Conjunctiva NECK; supple, normal thyroid, RESPIRATORY: Diminished to auscultation CARDIOVASCULAR: Regular S1 S2, GI: soft, normoactive bowel sounds, : No Renal angle tenderness; EXTREMITIES: No edema, no clubbing, MUSCULOSKELETAL: no muscle waisting NEURO: Awake; no lateralizing signs. SKIN: No Rash PSYCH; Flat affect ABG / Lab / Microbiology Data Result Diagrams: 12/15/20 18:50 12/16/20 05:46 Laboratory: Laboratory Results - last 24 hr 12/15/20 12/15/20 12/16/20 18:50 18:50 05:46 WBC 6.1 RBC 4.13 L Hgb 13.9 Hct 43.7 MCV 105.8 H MCH 33.7 H MCHC 31.8 L RDW Std Deviation 52.4 H RDW Coeff of Daryl 13.3 Plt Count 187 MPV 10.5 Immature Gran % (Auto) 0.800 Neut % (Auto) 67.4 Lymph % (Auto) 14.0 L Trigg % (Auto) 15.4 H Eos % (Auto) 1.7 Baso % (Auto) 0.7 Absolute Neuts (auto) 4.1 Absolute Lymphs (auto) 0.85 Nucleated RBC % 0 Sodium 137 140 Potassium 4.5 4.2 Chloride 96 L 101 Carbon Dioxide 37.0 H 36.0 H Anion Gap 4 L 3 L BUN 38 H 33 H Creatinine 1.73 H 1.44 H Estim Creat Clear Calc 27.16 32.62 Est GFR (MDRD) Af Amer 48 L 60 Est GFR (MDRD) Non-Af 40 L 50 L BUN/Creatinine Ratio 22.0 H 22.9 H Glucose 152 H 109 H Calcium 9.1 8.4 L Radiography Diagnostic Testing: Radiology Impression Lumbar Spine X-Ray 12/15/20 19:23 IMPRESSION: Degenerative changes of the spine, as detailed above. Electronically Signed: Prabhu Brewer MD at 19:43 EDT Tel , Service support , D/C Instructions Discharge Diet: No restrictions Discharge Activity: Return to Normal Activity Call your doctor if you observe: Fever of 101 or Higher, Shortness of breath, Fainting spells and Chest pain Meaningful Use Info Meaningful Use Diagnoses (Choose all that apply): None applicable Discharge Plan Admission Admit Date/Time: 12/15/20 20:08 Attending Provider: Ronnie Childers Primary Care Provider: Prabhu Vee Discharge Orders/Prescriptions Prescriptions: New lidocaine 5 % Adhesive Patch,Medicated 2 patch topical DAILY Qty: 0 RF: 0 oxycodone 5 mg Tablet 10 mg PO Q4H PRN PRN (Reason: Pain Score 4-10) 2 Days Qty: 8 RF: 0 cyclobenzaprine 5 mg Tablet 5 mg PO TID Qty: 0 RF: 0 Remove Patch 1 patch topical DAILY@2200 Qty: 0 RF: 0 Continued Entresto 49-51 mg tablet 1 tablet PO BID Qty: 60 RF: 11 tamsulosin 0.4 mg capsule 0.8 mg PO BID RF: 0 omega-3 fatty acids 1,250 mg capsule 1,250 mg PO DAILY RF: 0 Oneil Multivitamin For Men 200-175-250 mcg tablet 1 tab PO DAILY RF: 0 vitamin E (dl, acetate) 450 mg (1,000 unit) capsule 450 mg PO DAILY RF: 0 mecobalamin (vitamin B12) 5,000 mcg tablet,disintegrating 5,000 mcg PO DAILY RF: 0 cholecalciferol (vitamin D3) 25 mcg (1,000 unit) tablet 25 mcg PO DAILY RF: 0 finasteride 5 MG tablet 5 mg PO DAILY RF: 0 rivaroxaban 15 MG tablet 15 mg PO DAILY RF: 0 citalopram 10 MG tablet 10 mg PO DAILY Qty: 30 RF: 0 acetaminophen 500 MG tablet 650 mg PO Q6H PRN PRN (Reason: Pain Score 1-10) RF: 0 potassium chloride 10 MEQ tablet 10 meq PO BIDCM Qty: 60 RF: 0 peg [id number]-xqbmtwhx 1 DRP bottle 2 drp EACH EYE PRN PRN (Reason: Dry Eyes) RF: 0 prednisone 20 mg Tablet 40 mg PO BREAKFAST 4 Days Qty: 8 RF: 0 carvedilol 12.5 mg tablet 12.5 mg PO BID Qty: 180 RF: 3 furosemide 40 mg tablet 40 mg PO BID RF: 0 Referrals / Follow Up: Prabhu Vee MD [Primary Care Provider] - Within 2 Weeks Disposition Disposition (needs filled in before D/C Order can be placed): Senior Living Facility Visit Charges OBSV E&M: 67800 Observation care discharge
--- NOTE | 2020-12-16 11:58 | TREXTCAR_ITS ---
Diet 12/15/20 20:54 Diet: Cardiac - Heart Healthy Food consistency:: Regular Liquid Consistency:: Regular/Thin Routine Orders/Code Status O2 Liters per Minute: 2 O2 Frequency: Continuous Keep PO Greater than or Equal to (%): 90 Therapies Physical Therapy: Eval and Treat Occupational Therapy: Eval and Treat Problem/Diagnosis (1) Intractable back pain: Status: Acute (2) Debility: Status: Acute (3) Atrial flutter: Status: Chronic (4) Stage 3b chronic kidney disease: Status: Chronic (5) Benign prostatic hyperplasia: Status: Chronic (6) Paroxysmal atrial fibrillation: Status: Acute (7) History of coronary artery bypass graft: Status: Chronic (8) Atherosclerosis of coronary artery of [place] heart without angina pectoris: Status: Chronic (9) Chronic respiratory failure with hypoxia: Status: Chronic Allergies/Procedures Done in Hospital Allergies ofloxacin [From Floxin] Allergy (Verified 12/15/20 17:57) migraine diphenhydramine [From Benadryl] Adverse Reaction (Verified 12/15/20 17:57) shuts off my urine Procedures: None Type of Care/Length of Stay Estimated LOS: Convalescent Care Less Than 30 days Type of Care Needed: Skilled Rehab Potential: Good Prognosis: Good Additional Orders/Day of Discharge Day of Discharge: 12/16/20 Discharge Plan Admission Admit Date/Time: 12/15/20 20:08 Attending Provider: Ronnie Childers Primary Care Provider: Prabhu Vee Discharge Orders/Prescriptions Prescriptions: New lidocaine 5 % Adhesive Patch,Medicated 2 patch topical DAILY Qty: 0 RF: 0 oxycodone 5 mg Tablet 10 mg PO Q4H PRN PRN (Reason: Pain Score 4-10) 2 Days Qty: 8 RF: 0 cyclobenzaprine 5 mg Tablet 5 mg PO TID Qty: 0 RF: 0 Remove Patch 1 patch topical DAILY@2200 Qty: 0 RF: 0 Continued Entresto 49-51 mg tablet 1 tablet PO BID Qty: 60 RF: 11 tamsulosin 0.4 mg capsule 0.8 mg PO BID RF: 0 omega-3 fatty acids 1,250 mg capsule 1,250 mg PO DAILY RF: 0 Oneil Multivitamin For Men 200-175-250 mcg tablet 1 tab PO DAILY RF: 0 vitamin E (dl, acetate) 450 mg (1,000 unit) capsule 450 mg PO DAILY RF: 0 mecobalamin (vitamin B12) 5,000 mcg tablet,disintegrating 5,000 mcg PO DAILY RF: 0 cholecalciferol (vitamin D3) 25 mcg (1,000 unit) tablet 25 mcg PO DAILY RF: 0 finasteride 5 MG tablet 5 mg PO DAILY RF: 0 rivaroxaban 15 MG tablet 15 mg PO DAILY RF: 0 citalopram 10 MG tablet 10 mg PO DAILY Qty: 30 RF: 0 acetaminophen 500 MG tablet 650 mg PO Q6H PRN PRN (Reason: Pain Score 1-10) RF: 0 potassium chloride 10 MEQ tablet 10 meq PO BIDCM Qty: 60 RF: 0 peg [id number]-qfsaofap 1 DRP bottle 2 drp EACH EYE PRN PRN (Reason: Dry Eyes) RF: 0 prednisone 20 mg Tablet 40 mg PO BREAKFAST 4 Days Qty: 8 RF: 0 carvedilol 12.5 mg tablet 12.5 mg PO BID Qty: 180 RF: 3 furosemide 40 mg tablet 40 mg PO BID RF: 0 Referrals / Follow Up: Prabhu Vee MD [Primary Care Provider] - Within 2 Weeks Disposition Disposition (needs filled in before D/C Order can be placed): Care Home Facility
--- NOTE | 2020-12-16 12:11 | CASEMGMT ---
Social Work Note BETY spoke with Johnna with TCU, TCU is able to accept pt today. BETY updated physician and RN. SW in to speak with pt. SW updated pt that TCU is able to accept pt today and pt will discharge to TCU today. Pt states understanding. Pt states he will be calling his son Stevan to ask Stevan to bring in his COVID vaccination card for TCU. Plan: TCU today Sandy Amador ADULT DAYCARE COORDINATOR, TELEVISION EQUIPMENT OPERATOR
[2020-12-16 14:52] VITALS: BP 101/57; PULSE 73; RESP 20; TEMP 36.8; O2SAT 99
--- NOTE | 2020-12-16 14:54 | NURSING ---
attempted nurse to nurse report- no answer on phone
--- NOTE | 2020-12-22 14:32 | CCN.REFER ---
PATIENT ON HOLD FOR CCN PENDING TCU DISCHARGE. PATIENT ORIGINALLY DECLINED CCN. THIS RN TO CONTACT PATIENT/FAMILY POST TCU DC.
== END 2020-12-16 16:05 | disposition skilled nursing facility (03) ==
LOC: ED 19:56 → MS3 20:16
PROVIDERS: Admitting Provider Hospitalist; Emergency Provider Emergency Medicine; PCP Family Medicine; Visit Provider Internal Medicine
DX: M47.896 Other spondylosis, lumbar region (principal); I25.10 Atherosclerotic heart disease of native coronary artery without angina pectoris; I25.5 Ischemic cardiomyopathy; F32.9 Major depressive disorder, single episode, unspecified; I25.2 Old myocardial infarction; I13.0 Hypertensive heart and chronic kidney disease with heart failure and stage 1 through stage 4 chronic kidney disease, or unspecified chronic kidney disease; I50.22 Chronic systolic (congestive) heart failure; N18.32 Chronic kidney disease, stage 3b; I48.0 Paroxysmal atrial fibrillation; I48.92 Unspecified atrial flutter; J96.11 Chronic respiratory failure with hypoxia; N40.0 Benign prostatic hyperplasia without lower urinary tract symptoms; Z87.891 Personal history of nicotine dependence; Z79.899 Other long term (current) drug therapy; Z79.02 Long term (current) use of antithrombotics/antiplatelets; Z79.01 Long term (current) use of anticoagulants; Z79.52 Long term (current) use of systemic steroids; Z95.810 Presence of automatic (implantable) cardiac defibrillator; Z99.81 Dependence on supplemental oxygen; Z95.1 Presence of aortocoronary bypass graft
CPT/HCPCS: 36415; 72100; 80048; 85025; 87426; 96374; 96375; 96376; 97162; 97166; 99218; 99251; 99283; A4216; G0378; G0463; J2405

== ENCOUNTER 2020-12-16 16:19 | Inpatient (IN) | payer MEDICARE, OTHER, SELFPAY ==
[2020-12-15 21:11] VITALS: BMI 27.5
[2020-12-16 16:40] VITALS: BMI 27.8
[2020-12-16 17:05] VITALS: O2SAT 98
[2020-12-16 17:23] VITALS: BP 124/68; PULSE 73; TEMP 37.5; O2SAT 98
[2020-12-16] MEDS: Rivaroxaban 15 MG Tablet PO (17:40)
[2020-12-16] MEDS: Tamsulosin HCl 0.4 MG Capsule 0.8 MG PO (17:43)
[2020-12-16] MEDS: Glycerin/Hypromellose/PEG400 15 ml Bottle 2 DRP EACH EYE (17:43)
[2020-12-16] MEDS: SACUBITRIL/VALSARTAN 49-51 MG TABLET 1 EACH PO (17:44)
[2020-12-16] MEDS: Carvedilol 12.5 MG Tablet PO (17:44)
[2020-12-16] MEDS: cycloBENZAPRine HCl 5 MG TABLET PO (21:48)
--- NOTE | 2020-12-16 22:20 | HP.PCM_ITS ---
HPI - General General Date of Admission: 12/16/20 HPI Narrative 12/15/2020 ERIK ARCHER, is a 85 Male who presents to [facility] Emergency Department with back pain. Low back pain, recent hospitalization for intractable back pain. Able to ambulate 300 feet prior to discharge from hospital. Patient declined home health care, came right back to Emergency Department. Oxycodone somewhat helpful. X-ray showed no acute changes, bloodwork okay. 12/15/2020 Admit to Hospital. Flexeril, Oxycodone, Morphine IV, Lidoderm patch, Tylenol for pain control. PT/OT for Senior Living Facility. 12/16/2020 Admit to TCU with debility, here for rehabilitation, strengthening, prior to discharge home alone. FOR[facility]LY [facility], [facility] Medical History Atherosclerosis of coronary artery of [place] heart without angina pectoris Cancer Congestive heart failure (CHF) Coronary artery disease Depression Former smoker Hearing loss, left Hearing loss, right Hypertension Irregular heart beat Ischemic cardiomyopathy Pacemaker Home Medications finasteride 5 mg PO DAILY 09/22/20 [History Last Taken 12/15/20] rivaroxaban 15 mg PO DAILY 10/13/20 [History Last Taken 12/15/20] peg 407-vicmxybquzkq-clzrdvvs 2 drp EACH EYE PRN PRN 10/21/20 [History Last Taken 12/15/20] sacubitril 49 mg-valsartan 51 mg tablet 1 tablet PO BID #60 tablet 10/21/20 [Rx Last Taken 12/15/20] acetaminophen 650 mg PO Q6H PRN PRN tablet 10/31/20 [Rx Last Taken 12/15/20] citalopram 10 mg PO DAILY #30 tablet 10/31/20 [Rx Last Taken 12/15/20] potassium chloride 10 meq PO BIDCM #60 tablet 10/31/20 [Rx Last Taken 12/15/20] cholecalciferol (vitamin D3) 25 mcg (1,000 unit) tablet 25 mcg PO DAILY 11/24/20 [History Last Taken 12/15/20] mecobalamin (vitamin B12) 5,000 mcg disintegrating tablet 5,000 mcg PO DAILY 11/24/20 [History Last Taken 12/15/20] sxcoesdd-ryb-rnoht 200 mcg-lycop 175 mcg-lutei 250 mcg-herb 178 tablet 1 tab PO DAILY 11/24/20 [History Last Taken 12/15/20] omega-3 fatty acids 1,250 mg capsule 1,250 mg PO DAILY 11/24/20 [History Last Taken 12/15/20] tamsulosin 0.4 mg capsule 0.8 mg PO BID cap 11/24/20 [History Last Taken 12/15/20] vitamin E (dl, acetate) 450 mg (1,000 unit) capsule 450 mg PO DAILY 11/24/20 [History Last Taken 12/15/20] carvedilol 12.5 mg tablet 12.5 mg PO BID #180 tab 11/28/20 [Rx Last Taken 12/15/20] prednisone 40 mg PO BREAKFAST 4 Days #8 tab 12/08/20 [Rx Last Taken Unknown] furosemide 40 mg tablet 40 mg PO BID tab 12/11/20 [History Last Taken 12/15/20] Remove Patch 1 patch TOPICAL DAILY@2200 #0 12/16/20 [Rx Last Taken Unknown] cyclobenzaprine 5 mg PO TID #0 tab 12/16/20 [Rx Last Taken Unknown] lidocaine 2 patch TOPICAL DAILY #0 ea 12/16/20 [Rx Last Taken Unknown] oxycodone 10 mg PO Q4H PRN PRN 2 Days #8 tab NS 12/16/20 [Rx Last Taken Unknown] Allergy/AdvReac Type Severity Reaction Status Date / Time ofloxacin [From Floxin] Allergy migraine Verified 12/15/20 17:57 diphenhydramine AdvReac shuts off Verified 12/15/20 17:57 [From Benadryl] my urine Family History Mother Heart problem Brother Dialysis patient Surgical History H/O colectomy History of back surgery History of benign neoplasm of salivary gland History of cataract extraction History of coronary artery bypass graft History of open heart surgery History of umbilical hernia repair ICD (implantable cardioverter-defibrillator) in place Social History (Reviewed 12/07/20 @ 14:14 by Solange Hurst BODY BUILDER APPRENTICE, BODY BUILDER APPRENTICE-C) Smoking Status: Former smoker how long ago did patient quit smokin's alcohol intake: never substance use type: does not use well-balanced diet: other details: Fluid restrictions 48 ozs per day caffeine: Yes Type: coffee Number of servings: 1 ROS Constitutional Constitutional: Denies chills, fever(s) or weight gain ENT HEENT: Denies headache(s), nasal congestion or nasal discharge Cardiovascular Cardiovascular: Denies chest pain or palpitations Respiratory/Chest Respiratory/Chest: Denies cough, excessive phlegm production or shortness of breath with exertion Gastrointestinal Gastrointestinal: Denies abdominal pain, nausea or vomiting Genitourinary Genitourinary: Denies dysuria Musculoskeletal Musculoskeletal: Reports back pain; Denies joint pain or joint swelling Integumentary Integumentary: Denies rash or wounds Neurologic Neurologic: Denies focal weakness, numbness or tingling Psychiatric Psychiatric: Reports auditory hallucinations; Denies anxiety, depression, homicidal ideation or suicidal ideation Vital Signs Vital Signs Vital Signs: 12/16/20 17:05 12/16/20 17:08 12/16/20 17:23 Temperature 99.5 F H Temperature Source Temporal Pulse Rate 73 Pulse Rhythm Regular Respiratory Effort Normal Non-Labored Respiratory Depth Normal Respiratory Pattern Normal Blood Pressure 124/68 H Blood Pressure Mean 86 Blood Pressure Source Monitor Blood Pressure Position Sitting Blood Pressure Location Right Arm Pulse Ox 98 98 Oxygen Delivery Method Nasal Cannula Nasal Cannula Nasal Cannula Oxygen Flow Rate (L/min) 2 2 2 Weight Weight: 75.7 kg Body Mass Index (BMI) 27.8 Physical Exam Const alert and oriented x3 General Appearance: cooperative HEENT normocephalic Eyes PERRL and EOMs intact bilaterally Neck supple, no JVD and no carotid bruits Resp normal respiratory effort, normal air movement and clear to auscultation bilaterally Cardio regular rate and regular rhythm GI normal to inspection, nondistended, normoactive bowel sounds, non-tender and non-distended Extremity normal capillary refill General Extremity: Negative for edema Skin no rashes or lesions noted General Skin Exam: no breakdown Psych affect normal Appearance: appropriate Assessment & Plan Assessment/Plan (1) Debility: (2) Intractable low back pain: (3) Coronary artery disease: (4) Depression: (5) Hypertension: (6) Benign prostatic hyperplasia: (7) Atrial fibrillation: (8) Chronic systolic congestive heart failure: (9) Hypokalemia: (10) Vitamin D deficiency: (11) Muscle spasm: PLAN: 85 year old male with below past medical history hospitalized for intractable low back pain, admitted to TCU with debility, here for rehabilitation, strengthening, prior to discharge home alone. * Debility - PT/OT. * Pain - Tylenol 1000MG Q6H PRN pain (1-3), Oxycodone 10MG Q4H PRN pain (4-5), Morphine 4MG IV Q4H PRN pain (6-10), Lidoderm patch 2 patches topical daily, consult Dr. Luo. * Bowel - Miralax 17GM daily, Senna/colace 2 tablets BID, Dulcolax 10MG daily PRN. * Adult immunization - Administer Prevnar 13, Pneumovax 23, COVID19 vaccine as appropriate. * DVT prophylaxis - Not necessary, already on Xarelto. * Atrial Fibrillation - Coreg 12.5MG BID, Xarelto 15MG daily. * Depression - Citalopram 10MG daily, stable chronic [facility] use, GDR not recommended. * Muscle spasm - Flexeril 5MG TID. * BPH - Finasteride 5MG daily, Tamsulosin 0.8MG BID. * Chronic systolic congestive heart failure - Coreg 12.5MG BID, Entresto 97/103MG BID, Lasix 40MG BID. * Nausea - Zofran 4MG IV Q8H PRN. * Dry Eyes - Artificial Tears 2 GTT OU Q1H PRN. * Insomnia - Zolpidem 5MG QHS PRN.
[2020-12-16] MEDS: Morphine 4 MG/ML Syringe IV (23:47)
[2020-12-17] MEDS: oxyCODONE 5 MG Tablet 10 MG PO ×3 (04:14→19:39)
[2020-12-17] MEDS: Lidocaine 5% Patch 2 PATCH TOPICAL (05:17)
[2020-12-17 05:24] VITALS: BP 116/59; PULSE 76; RESP 18; TEMP 37.6; O2SAT 97
[2020-12-17] MEDS: Acetaminophen 500 MG Tablet 1000 MG PO ×2 (05:25→19:38)
[2020-12-17] MEDS: Carvedilol 12.5 MG Tablet PO (05:26)
[2020-12-17] MEDS: cycloBENZAPRine HCl 5 MG TABLET PO ×3 (05:26→19:39)
[2020-12-17] MEDS: Finasteride 5 MG Tablet PO (05:26)
[2020-12-17] MEDS: Furosemide 40 MG Tablet PO ×2 (05:26→13:46)
[2020-12-17] MEDS: Citalopram 10 MG Tablet PO (05:27)
[2020-12-17] MEDS: SACUBITRIL/VALSARTAN 97-103 MG TABLET 1 EACH PO (05:28)
[2020-12-17] MEDS: Senna/Docusate Sodium 1 Tablet 2 TABLET PO ×2 (05:29→17:01)
[2020-12-17 05:43] LABS: Absolute Lymphocyte Count 0.93 X10^3/uL (0.83-4.51); Absolute Neutrophil Count 4.1 X10^3/uL (2.0-7.7); Basophil# 0.05 X10^3/uL; Basophil% 0.8 % (0-1); Eosinophil# 0.09 X10^3/uL; Eosinophils% 1.5 % (0-5); Hematocrit 41.2 % (40-54); Hemoglobin 13.1 g/dL (13.0-16.5); Lymphocyte # 0.93 X10^3/ul (0.83-4.51); Lymphocyte % 15.4 % (19-41); Mean Corp Hgb Conc 31.8 g/dL (32-36); Mean Corpuscular Hgb 33.7 pg (27.0-32.0); Mean Corpuscular Volume 105.9 fL (80-94); Mean Platelet Vol. 10.7 fl (6.2-12.0); Monocyte# 0.82 X10^3/uL; Monocyte% 13.6 % (0-10); NRBC Flagged by Analyzer 0 % (0-5); Neutrophil # 4.08 X10^3/uL (2.7-7.7); Neutrophil % 67.7 % (47-70); Platelet Count 173 K/mm3 (150-450); RBC Distribution Width CV 13.2 % (11.6-14.6); RBC Distribution Width SD 51.8 fl (35.1-43.9); Red Blood Count 3.89 M/mm3 (4.6-6.2)
[2020-12-17 06:05] LABS: Anion Gap 5 (5-15); BUN 34 mg/dL (7-18); BUN/Creat Ratio 21.1 RATIO (10-20); Chloride 99 mmol/L (98-107); Creatinine, Serum 1.61 mg/dL (0.70-1.30); EST Glomerular Filtration Rate 44 mL/min (>60); Est Glom Filt Rate - Afr Amer 53 mL/min (>60); Estimated Creatinine Clearance 29.18 ml/min; Glucose 119 mg/dL (74-106); Potassium 4.2 mmol/L (3.5-5.1); Sodium Level 138 mmol/L (136-145)
[2020-12-17 07:34] VITALS: O2SAT 96
[2020-12-17] MEDS: Tamsulosin HCl 0.4 MG Capsule 0.8 MG PO ×2 (08:02→16:57)
[2020-12-17] MEDS: Morphine 4 MG/ML Syringe IV (09:03)
--- NOTE | 2020-12-17 14:27 | PCM.PN.RX ---
Progress Note - Pharmacy Subjective: TCU Admission Objective: Allergies ofloxacin [From Floxin] Allergy (Verified 12/15/20 17:57) migraine diphenhydramine [From Benadryl] Adverse Reaction (Verified 12/15/20 17:57) shuts off my urine Current Medications Generic Name Dose Route Start Last Admin Trade Name Freq PRN Reason Stop Dose Admin Acetaminophen 1,000 mg 12/16/20 22:38 12/17/20 05:25 Acetaminophen 500 Mg Tablet PO 1,000 mg Q6H PRN PRN Administration Pain Score 1-3 Bisacodyl 10 mg 12/16/20 22:37 Bisacodyl 5 Mg Tablet PO DAILY PRN Constipation Carvedilol 12.5 mg 12/16/20 18:00 12/17/20 05:26 Carvedilol 12.5 Mg Tablet PO 12.5 mg BID LUIS Administration Citalopram Hydrobromide 10 mg 12/17/20 06:00 12/17/20 05:27 Citalopram 10 Mg Tablet PO 10 mg DAILY LUIS Administration Cyclobenzaprine HCl 5 mg 12/16/20 22:00 12/17/20 05:26 Cyclobenzaprine Hcl 5 Mg Tablet PO 5 mg TID LUIS Administration Finasteride 5 mg 12/17/20 06:00 12/17/20 05:26 Finasteride 5 Mg Tablet PO 5 mg DAILY LUIS Administration Furosemide 40 mg 12/17/20 06:00 12/17/20 13:46 Furosemide 40 Mg Tablet PO 40 mg BIDLX LUIS Administration Lidocaine 2 patch 12/17/20 06:00 12/17/20 05:17 Lidocaine 5% Patch TOPICAL 2 patch DAILY LUIS Administration Protocol Morphine Sulfate 4 mg 12/16/20 16:34 12/17/20 09:03 Morphine 4 Mg/Ml Syringe IV 4 mg Q4H PRN PRN Administration Pain Score 6-10 Ondansetron HCl 4 mg 12/16/20 16:34 Ondansetron 4 Mg/2 Ml Vial IV Q8H PRN PRN NAUSEA/VOMITING Oxycodone HCl 10 mg 12/16/20 16:34 12/17/20 13:46 Oxycodone 5 Mg Tablet PO 10 mg Q4H PRN PRN Administration Pain Score 4-5 Polyethylene Glycol 17 gm 12/17/20 06:00 12/17/20 05:28 Polyethylene Glycol 3350 17 Gm Packet PO Not Given DAILY LUIS Rivaroxaban 15 mg 12/16/20 17:00 12/16/20 17:40 Rivaroxaban 15 Mg Tablet PO 15 mg DINNER LUIS Administration Sacubitril/Valsartan 1 each 12/17/20 06:00 12/17/20 05:28 Sacubitril/Valsartan 97-103 Mg Tablet PO 1 each BID LUIS Administration Senna/Docusate Sodium 2 tablet 12/17/20 06:00 12/17/20 05:29 Senna/Docusate Sodium 1 Tablet PO 2 tablet BID LUIS Administration Sodium Chloride 10 - 40 ml 12/16/20 16:34 0.9% Saline Lock 10 Ml Syringe IV UD PRN SALINE FLUSH Sodium Chloride 10 - 40 ml 12/16/20 16:49 0.9% Saline Lock 10 Ml Syringe IV UD PRN SALINE FLUSH Tamsulosin HCl 0.8 mg 12/16/20 18:00 12/17/20 08:02 Tamsulosin Hcl 0.4 Mg Capsule PO 0.8 mg BIDPC LUIS Administration Zolpidem Tartrate 5 mg 12/16/20 16:34 Zolpidem Tartrate 5 Mg Tablet PO QHS PRN PRN INSOMNIA Problem List (Last Reviewed 12/16/20 @ 22:[address] Melvin Kraft MD) Muscle spasm (Acute) Vitamin D deficiency (Acute) Hypokalemia (Acute) Chronic systolic congestive heart failure (Chronic) Atrial fibrillation (Acute) Benign prostatic hyperplasia (Acute) Hypertension (Chronic) Depression (Acute) Coronary artery disease (Acute) Intractable low back pain (Acute) Debility (Acute) Vital Signs Temp Pulse Resp BP Pulse Ox 99.6 F H 76 18 116/59 L 96 12/17/20 05:24 12/17/20 05:24 12/17/20 05:24 12/17/20 05:24 12/17/20 07:34 Oxygen Flow Rate (L/min) 2 Oxygen Delivery Method Nasal Cannula Weight: 75.7 kg Body Mass Index (BMI) 27.8 Sodium 138 mmol/L (136-145) 12/17/20 05:15 Potassium 4.2 mmol/L (3.5-5.1) 12/17/20 05:15 Chloride 99 mmol/L (98-107) 12/17/20 05:15 Carbon Dioxide 34.0 mmol/L (21.0-32.0) H 12/17/20 05:15 Anion Gap 5 (5-15) 12/17/20 05:15 BUN 34 mg/dL (7-18) H 12/17/20 05:15 Creatinine 1.61 mg/dL (0.70-1.30) H 12/17/20 05:15 Est GFR (MDRD) Af Amer 53 mL/min (>60) L 12/17/20 05:15 Est GFR (MDRD) Non-Af 44 mL/min (>60) L 12/17/20 05:15 BUN/Creatinine Ratio 21.1 RATIO (10-20) H 12/17/20 05:15 Glucose 119 mg/dL (74-106) H 12/17/20 05:15 Assessment/Plan: 1. Pain: acetaminophen 1000mg PO Q6H PRN pain 1-3/10, oxycodone 10mg PO Q4H PRN pain 4-5/10, morphine 4mg IV Q4H PRN pain 6-10/10, and lidocaine 5% patch apply 2 patches topically once daily. Please continue to monitor for increased pain, PRN usage, constipation, respiratory depression and rash. 2. Atrial fibrillation/CHF: carvedilol 12.5mg PO BID, rivaroxaban 15mg PO dinner, sacubitril/valsartan 97/103mg PO BID and furosemide 40mg PO BID. Please continue to monitor BP (last 116/59), HR (last 76), hemoglobin (last 13.1g/dL), S/S of bleeding, renal function and potassium (last 4.2mmol/L). 3. Muscle spasm: cyclobenzaprine 5mg PO TID. Please continue to monitor for muscle spasms and for anticholinergic side effects (medication is on the BEERs criteria). 4. BPH: finasteride 5mg PO daily and tamsulosin 0.8mg PO BID. Please continue to monitor for hypotension and improved urine flow. 5. Nausea: ondansetron 4mg IV Q8H PRN nausea/vomiting. Please continue to monitor PRN usage. 6. Dry eyes: Artificial Tears 2gtt OU Q1H PRN dry eyes. Please continue to monitor PRN usage. 7. Insomnia: zolpidem 5mg PO QHS PRN insomnia. Please continue to monitor for insomnia and excessive drowsiness. Psychotropic Medications: 1. Depression: citalopram 10mg PO daily. Please see physician note regarding GDR. Unnecessary Medications: None Bowel Regimen: Miralax 17gm PO daily, senna/docusate 2T PO BID, and bisacodyl 10mg PO daily PRN constipation. Please continue to monitor for constipation and PRN usage. Date of Note:: 12/17/20
[2020-12-17 14:42] VITALS: BP 93/51; PULSE 70; RESP 18; TEMP 36.6; O2SAT 94
[2020-12-17 16:55] VITALS: BP 92/42; PULSE 73
[2020-12-17] MEDS: Rivaroxaban 15 MG Tablet PO (16:59)
--- NOTE | 2020-12-17 18:36 | NURSING ---
Dr. Luo came in to consult, Dr. Luo wishes to perform a bilateral facet L4-5, 5-S1 on 12/19/20, message left for Dr. Kraft to update on consult and request to hold Xarelto until after procedure, N.O. NPO after midnight before procedure.
[2020-12-17 19:30] VITALS: PULSE 71; RESP 18; O2SAT 96
[2020-12-17] MEDS: Glycerin/Hypromellose/PEG400 15 ml Bottle 2 DRP EACH EYE (19:39)
[2020-12-18] MEDS: oxyCODONE 5 MG Tablet 10 MG PO ×3 (00:16→11:14)
[2020-12-18] MEDS: Lidocaine 5% Patch 2 PATCH TOPICAL (06:07)
[2020-12-18] MEDS: Furosemide 40 MG Tablet PO ×2 (06:07→13:50)
[2020-12-18] MEDS: Carvedilol 12.5 MG Tablet PO ×2 (06:07→17:56)
[2020-12-18] MEDS: Citalopram 10 MG Tablet PO (06:07)
[2020-12-18] MEDS: Finasteride 5 MG Tablet PO (06:08)
[2020-12-18] MEDS: Senna/Docusate Sodium 1 Tablet 2 TABLET PO (06:08)
[2020-12-18] MEDS: Acetaminophen 500 MG Tablet 1000 MG PO (06:08)
[2020-12-18] MEDS: cycloBENZAPRine HCl 5 MG TABLET PO ×3 (06:18→22:05)
[2020-12-18] MEDS: SACUBITRIL/VALSARTAN 97-103 MG TABLET 1 EACH PO ×2 (06:19→17:57)
[2020-12-18 06:23] VITALS: BP 114/64; PULSE 72; RESP 18; TEMP 36.7; O2SAT 98
[2020-12-18] MEDS: 0.9% Saline Lock 10 ML Syringe IV ×2 (07:25→19:52)
[2020-12-18 07:28] VITALS: O2SAT 94
[2020-12-18] MEDS: Tamsulosin HCl 0.4 MG Capsule 0.8 MG PO ×2 (08:44→17:56)
[2020-12-18 13:29] VITALS: BP 114/66; PULSE 71; RESP 20; TEMP 36.1; O2SAT 98
--- NOTE | 2020-12-18 16:12 | CHAPLAIN ---
Type of Pastoral Visit _x__ Initial Visit ___ Follow-up Visit ___ On-call Visit ___ General Patient Visit ___ Spiritual Assessment ___ Family Conference ___ Bereavement ___ Rapid Response ___ Code Blue ___ Other (describe below) Pastoral Care Referral From _x__ Patient ___ Family ___ Nurse ___ Physician ___ Receiving Tank Operator ___ Shop Blacksmith ___ Other (describe below) Sacrament/Intervention _x__ Active listening ___ Anointing ___ Anabaptist ___ Bereavement ___ Communion ___ Sandrine exploration ___ ___ Life review _x__ Prayer ___ Reconciliation ___ Sacrament of Sick _x__ Supportive presence ___ Wedding ___ Other (describe below) Pastoral Comments patient welcomes spiritual care support and prayer
[2020-12-18] MEDS: Morphine 4 MG/ML Syringe IV (19:52)
--- NOTE | 2020-12-18 22:41 | PCA ---
Pt declined to wash up this evening, stating he was too painful this evening. em
--- NOTE | 2020-12-19 00:13 | MDS.RN ---
Pt does not sleep in bed. LEs dependent while in recliner chair when this nurse entered the room. In no acute distress. [place] on floor and reapplied. Cup of ice chips removed as pt is NPO after midnight for planned procedure today. NPO sign posted outside room. Call light w/ in reach.
[2020-12-19 04:51] VITALS: BP 107/54; PULSE 97; TEMP 37.2; O2SAT 96
[2020-12-19] MEDS: Morphine 4 MG/ML Syringe IV (04:55)
[2020-12-19] MEDS: Carvedilol 12.5 MG Tablet PO ×2 (05:03→17:40)
[2020-12-19] MEDS: SACUBITRIL/VALSARTAN 97-103 MG TABLET 1 EACH PO ×2 (05:03→17:40)
[2020-12-19] MEDS: 0.9% Saline Lock 10 ML Syringe IV ×2 (05:10→22:11)
[2020-12-19] MEDS: Lidocaine 5% Patch 2 PATCH TOPICAL (06:54)
[2020-12-19 16:51] VITALS: BP 104/55; PULSE 84; RESP 20; TEMP 37.1; O2SAT 96
[2020-12-19] MEDS: NYSTATIN 500,000 UNIT/5 ML UDC 500000 UNIT PO ×2 (17:39→22:09)
[2020-12-19] MEDS: cycloBENZAPRine HCl 5 MG TABLET PO ×2 (17:40→22:09)
[2020-12-19] MEDS: Furosemide 40 MG Tablet PO (17:41)
[2020-12-19] MEDS: Tamsulosin HCl 0.4 MG Capsule 0.8 MG PO (17:41)
[2020-12-19] MEDS: Senna/Docusate Sodium 1 Tablet 2 TABLET PO (17:46)
[2020-12-19] MEDS: Glycerin/Hypromellose/PEG400 15 ml Bottle 2 DRP EACH EYE (22:12)
[2020-12-19] MEDS: Zolpidem Tartrate 5 MG Tablet PO (22:20)
[2020-12-19] MEDS: oxyCODONE 5 MG Tablet 10 MG PO (22:20)
[2020-12-20 04:35] VITALS: BP 111/62; PULSE 95; RESP 20; TEMP 36.3; O2SAT 95
[2020-12-20] MEDS: Morphine 4 MG/ML Syringe IV ×2 (04:38→21:26)
[2020-12-20] MEDS: 0.9% Saline Lock 10 ML Syringe IV ×2 (04:39→12:23)
[2020-12-20] MEDS: Finasteride 5 MG Tablet PO (04:43)
[2020-12-20] MEDS: Citalopram 10 MG Tablet PO (04:43)
[2020-12-20] MEDS: cycloBENZAPRine HCl 5 MG TABLET PO ×3 (04:43→21:23)
[2020-12-20] MEDS: SACUBITRIL/VALSARTAN 97-103 MG TABLET 1 EACH PO ×2 (04:43→17:08)
[2020-12-20] MEDS: Carvedilol 12.5 MG Tablet PO ×2 (04:43→17:09)
[2020-12-20] MEDS: Furosemide 40 MG Tablet PO ×2 (04:43→13:13)
[2020-12-20] MEDS: NYSTATIN 500,000 UNIT/5 ML UDC 500000 UNIT PO ×4 (04:43→21:23)
[2020-12-20] MEDS: Lidocaine 5% Patch 2 PATCH TOPICAL (04:44)
[2020-12-20] MEDS: Polyethylene Glycol 3350 17 GM PACKET PO (04:45)
[2020-12-20] MEDS: Glycerin/Hypromellose/PEG400 15 ml Bottle 2 DRP EACH EYE (04:46)
[2020-12-20] MEDS: Senna/Docusate Sodium 1 Tablet 2 TABLET PO ×2 (04:50→17:12)
[2020-12-20 07:56] VITALS: O2SAT 95
[2020-12-20] MEDS: Tamsulosin HCl 0.4 MG Capsule 0.8 MG PO ×2 (08:24→17:09)
[2020-12-20 14:18] VITALS: BP 91/50; PULSE 104; RESP 18; TEMP 36.3; O2SAT 95
[2020-12-20] MEDS: Rivaroxaban 15 MG Tablet PO (17:09)
[2020-12-20 17:33] VITALS: BP 108/56
[2020-12-21] MEDS: oxyCODONE 5 MG Tablet 10 MG PO ×2 (02:17→13:29)
[2020-12-21] MEDS: Morphine 4 MG/ML Syringe IV (03:29)
[2020-12-21 03:50] VITALS: BP 122/59; PULSE 76; RESP 18; TEMP 36.6; O2SAT 96
[2020-12-21] MEDS: NYSTATIN 500,000 UNIT/5 ML UDC 500000 UNIT PO ×4 (05:41→21:06)
[2020-12-21] MEDS: Finasteride 5 MG Tablet PO (05:41)
[2020-12-21] MEDS: Carvedilol 12.5 MG Tablet PO ×2 (05:41→17:27)
[2020-12-21] MEDS: SACUBITRIL/VALSARTAN 97-103 MG TABLET 1 EACH PO ×2 (05:41→17:26)
[2020-12-21] MEDS: Lidocaine 5% Patch 2 PATCH TOPICAL (05:41)
[2020-12-21] MEDS: cycloBENZAPRine HCl 5 MG TABLET PO ×3 (05:41→21:06)
[2020-12-21] MEDS: Citalopram 10 MG Tablet PO (05:41)
[2020-12-21] MEDS: Furosemide 40 MG Tablet PO ×2 (05:41→13:30)
[2020-12-21] MEDS: 0.9% Saline Lock 10 ML Syringe IV ×2 (05:45→17:31)
[2020-12-21 07:41] VITALS: O2SAT 96
[2020-12-21] MEDS: Tamsulosin HCl 0.4 MG Capsule 0.8 MG PO ×2 (08:50→17:26)
[2020-12-21 10:00] VITALS: BP 96/48; PULSE 81
[2020-12-21 14:11] VITALS: BP 109/59; PULSE 63; RESP 18; TEMP 36.3; O2SAT 91
[2020-12-21] MEDS: Rivaroxaban 15 MG Tablet PO (17:27)
[2020-12-21] MEDS: Menthol/Lanolin/Calamine/Znox 113 GM Tube 1 APPLIC TOPICAL (17:28)
[2020-12-21] MEDS: Senna/Docusate Sodium 1 Tablet 2 TABLET PO (17:28)
[2020-12-21 17:31] VITALS: BP 119/66; PULSE 73
[2020-12-22 02:30] VITALS: BP 113/71; PULSE 85; RESP 18; TEMP 36.5; O2SAT 96
[2020-12-22] MEDS: Morphine 4 MG/ML Syringe IV ×5 (03:34→23:47)
[2020-12-22] MEDS: Citalopram 10 MG Tablet PO (05:35)
[2020-12-22] MEDS: cycloBENZAPRine HCl 5 MG TABLET PO ×3 (05:36→21:08)
[2020-12-22] MEDS: Furosemide 40 MG Tablet PO ×2 (05:36→14:10)
[2020-12-22] MEDS: Carvedilol 12.5 MG Tablet PO ×2 (05:36→18:22)
[2020-12-22] MEDS: Finasteride 5 MG Tablet PO (05:36)
[2020-12-22] MEDS: NYSTATIN 500,000 UNIT/5 ML UDC 500000 UNIT PO ×4 (05:36→21:07)
[2020-12-22] MEDS: SACUBITRIL/VALSARTAN 97-103 MG TABLET 1 EACH PO ×2 (05:36→18:23)
[2020-12-22] MEDS: Senna/Docusate Sodium 1 Tablet 2 TABLET PO ×2 (05:39→18:27)
[2020-12-22] MEDS: Menthol/Lanolin/Calamine/Znox 113 GM Tube 1 APPLIC TOPICAL ×2 (05:40→18:27)
[2020-12-22] MEDS: Lidocaine 5% Patch 2 PATCH TOPICAL (05:40)
[2020-12-22] MEDS: oxyCODONE 5 MG Tablet 10 MG PO ×2 (05:59→11:57)
[2020-12-22 06:42] VITALS: O2SAT 95
[2020-12-22] MEDS: Tamsulosin HCl 0.4 MG Capsule 0.8 MG PO ×2 (09:08→18:22)
[2020-12-22] MEDS: 0.9% Saline Lock 10 ML Syringe IV ×4 (09:29→23:52)
--- NOTE | 2020-12-22 12:48 | CASEMGMT ---
Social Work BIMS and PHQ9 interviews completed on this date for MDS assessment. SW provided emotional support to pt. Pt one year ago. Pt openly expressing feelings of loss over of dog and in December 2019 followed closely by the sale of his belongings and house and move to independent Living unit at [facility] in August. Pt also discussing medical issues over the last five month. Pt stating, things are just piling up. SW discussed coping mechanisms and provided support. Pt appreciative of visit. SWAPNA Navas
[2020-12-22 15:36] VITALS: BP 106/68; PULSE 74; RESP 18; TEMP 36.4; O2SAT 95
[2020-12-22] MEDS: Rivaroxaban 15 MG Tablet PO (18:22)
--- NOTE | 2020-12-23 01:57 | NURSING ---
Reassessed pain after IV Morphine administered. Continues to rate at 10/10. Winces w/ small minimal movement. Declines any additional pain medication at this time. Requests another pillow to place under rt arm for comfort. Offered fluids and declines. Call light w/ in reach.
[2020-12-23] MEDS: 0.9% Saline Lock 10 ML Syringe IV ×2 (03:45→08:29)
[2020-12-23] MEDS: Morphine 4 MG/ML Syringe IV ×3 (03:47→13:55)
--- NOTE | 2020-12-23 03:56 | NURSING ---
Pt reports IV pain medication has not been providing relief. Sitting in recliner chair w/ LEs dependent. In no acute distress. Morphine 4 mg given IVP slowly over [address] order. Repositioned pillow behind back from a horizontal to a vertical position. Given Sprite per pt request. Call light w/ in reach. Encouraged to call staff for any additional needs.
[2020-12-23 05:00] VITALS: BP 114/63; PULSE 74; RESP 18; O2SAT 96
[2020-12-23] MEDS: cycloBENZAPRine HCl 5 MG TABLET PO ×3 (05:38→20:00)
[2020-12-23] MEDS: Citalopram 10 MG Tablet PO (05:38)
[2020-12-23] MEDS: Finasteride 5 MG Tablet PO (05:38)
[2020-12-23] MEDS: Furosemide 40 MG Tablet PO ×2 (05:39→14:41)
[2020-12-23] MEDS: oxyCODONE 5 MG Tablet 10 MG PO ×2 (05:39→20:06)
[2020-12-23] MEDS: NYSTATIN 500,000 UNIT/5 ML UDC 500000 UNIT PO ×4 (05:39→20:00)
[2020-12-23] MEDS: Carvedilol 12.5 MG Tablet PO ×2 (05:39→17:24)
[2020-12-23] MEDS: Acetaminophen 500 MG Tablet 1000 MG PO ×2 (05:39→13:55)
[2020-12-23] MEDS: SACUBITRIL/VALSARTAN 97-103 MG TABLET 1 EACH PO ×2 (05:39→17:15)
[2020-12-23] MEDS: Menthol/Lanolin/Calamine/Znox 113 GM Tube 1 APPLIC TOPICAL ×2 (05:46→17:23)
[2020-12-23] MEDS: Senna/Docusate Sodium 1 Tablet 2 TABLET PO ×2 (05:47→17:23)
[2020-12-23] MEDS: Lidocaine 5% Patch 2 PATCH TOPICAL (08:13)
[2020-12-23] MEDS: Tamsulosin HCl 0.4 MG Capsule 0.8 MG PO ×2 (08:13→17:15)
[2020-12-23 08:15] VITALS: O2SAT 95
--- NOTE | 2020-12-23 08:55 | NURSING ---
Contacted Dr. Luo's office about pt continual pain and medications not effect. Dr. Luo's nurse to make him aware.
[2020-12-23 13:36] VITALS: BP 95/55; PULSE 71; RESP 14; TEMP 36.1; O2SAT 96
--- NOTE | 2020-12-23 13:49 | CON.PCM.PA_ITS ---
Assessment & Plan Assessment/Plan (1) Debility: (2) Intractable low back pain: (3) Shortness of breath: (4) Muscle spasm: (5) Chronic systolic congestive heart failure: (6) Paroxysmal atrial fibrillation: PLAN: 85-year-old male with several recent hospital and TCU admissions, seen today for palliative care f/u due to new intractable low back pain and debility. He was originally admitted to palliative care September 2020 for symptom management of shortness of breath and weakness. 1. Intractable low back pain: severe, cannot move at all without excruciating pain. Current meds: Lidocaine patches, Biofreeze ointment topical, morphine 4 mg IV q4h prn, tylenol 1Gm q6 prn, oxycodone 10mg q4 PRN, cyclobenzaprine [address] Luo visit today, then decide on what to do for pain management, may need neuropathic agent 2. Weakness: He has had a few hospitalizations last month or two. Currently in TCU for rehab. We will continue to follow. 3. Shortness of breath: stable. reiterated he needs to keep close watch on CHF, monitoring weights, edema, etc. 4. Atrial flutter/recent COVID-19/CKD/s/p MVR, s/p CABG BPH/macrocytosis/leukopenia/thrombocytopenia/systolic CHF/PAF, recent respiratory failure with hypoxia: Complicates overall care, management, recovery, and prognosis. Patient to follow-up with his specialists once discharged from TCU. [facility] to do hematological workup. Thank you for the opportunity to participate in this patient's care, please do not hesitate to contact [facility] with any further questions or concerns. Palliative direct line is [phone]. We will have RN follow up approximately 3 days after discharge to home and will discuss palliative services further at that time. Greater than 50% of F2F visit dedicated to education and counseling of palliative care services, medications, comorbid conditions and potential assistance with management, and plan of care moving forward. He is agreeable to palliative services once he is discharged from TCU. Start time: 1338 End time: 1434 Established patient. HPI Consult Data Date of Consult: 12/23/20 HPI Narrative HPI Narrative: ERIK ARCHER, is a 85 M, recently admitted to palliative care for symptom management of shortness of breath 10/14/2020, who presented back to [facility] 12/15/2020 with intractable back pain after being hospitalized 12/07-12/08 for lumbago. Noted to have spontaneous back pain without injury. He was started on narcotics and benzodiazepines and had improvement in his pain. It was suspected that he had a muscle spasm to the left paraspinal muscle. A CAT scan did not show any acute process. He had declined home health at that point. He then came back to the ER 12/15 with intractable back pain and debility, then discharged to TCU for ongoing rehab and therapy 12/16/2020. Pt notes he was walking on a path at the [facility], back just started hurting. Became excruciating. Dr. Luo performed a lumbar facet joint injection bilaterally L4-L5 and L5-S1 12/19/2020, patient notes no relief. He is also on 1 g of acetaminophen every 6 hours PRN, oxycodone 10 mg every 4 hours PRN, morphine 4 mg IV every 4 hours PRN, lidocaine 5% patches?2 patches once daily. Samson has cyclobenzaprine 5 mg scheduled 3 times daily for muscle spasms. Nursing tells me Dr. Luo will be seeing the patient later on today. At initial palliative evaluation 10/14, it was noted patient had Covid at the beginning of September. He was sent home on dexamethasone/remdesivir but his symptoms significantly worsened. He had a stay in the ICU for acute on chronic CHF exacerbation as well as COVID-19 infection. Hematology/oncology was consulted during admission due to his thrombocytopenia and leukopenia and recommended repeat, additional lab work in about 2 months. He was discharged 09/25/2020. Patient then presented back to ED 10/10/2020 with progressive SOB. Also positive for orthopnea, PND, significant abdominal/PERFECTO, and weight gain. He was aggressively diuresed and at one point was on a Lasix drip. Required oxygen supplementation. Samson has Zofran for nausea. Bowel regimen includes MiraLAX 17 g daily, Bing- Colace 2 tabs twice daily, bisacodyl 10 mg daily PRN. States his bowels have not moved very well in the last couple of days. Rate is in excruciating pain, he can even move his foot without grimacing. He appears very fatigued, states he is not sleeping and the pain is constant. 10 of 10 all the time, the pain medications he is currently on only brings it down maybe 1 point. There is no radiation of pain down his legs or groin. No numbness or tingling. No nausea or vomiting, no bowel or bladder incontinence, no significant current shortness of breath. Dr. Luo is planning on visiting this afternoon, we will figure out a game plan at that point. Nursing to call me if I do not touch base with physician. Patient cannot have an MRI to rule out disc herniation secondary to pacemaker. [facility] Medical History Atherosclerosis of coronary artery of [place] heart without angina pectoris Cancer Cardiology follow-up encounter Congestive heart failure (CHF) Coronary artery disease Depression Former smoker Hearing loss, left Hearing loss, right History of renal disease Hx of echocardiogram (~10/10/20) Hx of transesophageal echocardiography (TYRA) for monitoring (~04/29/17) Hypertension Irregular heart beat Ischemic cardiomyopathy Loss of hearing On home oxygen therapy Pacemaker Walker as ambulation aid Home Medications finasteride 5 mg PO DAILY 09/22/20 [History Last Taken 12/15/20] rivaroxaban 15 mg PO DAILY 10/13/20 [History Last Taken 12/15/20] peg [id number] 2 drp EACH EYE PRN PRN 10/21/20 [History Last Taken 12/15/20] sacubitril 49 mg-valsartan 51 mg tablet 1 tablet PO BID #60 tablet 10/21/20 [Rx Last Taken 12/15/20] acetaminophen 650 mg PO Q6H PRN PRN tablet 10/31/20 [Rx Last Taken 12/15/20] citalopram 10 mg PO DAILY #30 tablet 10/31/20 [Rx Last Taken 12/15/20] potassium chloride 10 meq PO BIDCM #60 tablet 10/31/20 [Rx Last Taken 12/15/20] cholecalciferol (vitamin D3) 25 mcg (1,000 unit) tablet 25 mcg PO DAILY 11/24/20 [History Last Taken 12/15/20] mecobalamin (vitamin B12) 5,000 mcg disintegrating tablet 5,000 mcg PO DAILY 11/24/20 [History Last Taken 12/15/20] jfjtqqdk-vor-ctpyy 200 mcg-lycop 175 mcg-lutei 250 mcg-herb 178 tablet 1 tab PO DAILY 11/24/20 [History Last Taken 12/15/20] omega-3 fatty acids 1,250 mg capsule 1,250 mg PO DAILY 11/24/20 [History Last Taken 12/15/20] tamsulosin 0.4 mg capsule 0.8 mg PO BID cap 11/24/20 [History Last Taken 12/15/20] vitamin E (dl, acetate) 450 mg (1,000 unit) capsule 450 mg PO DAILY 11/24/20 [History Last Taken 12/15/20] carvedilol 12.5 mg tablet 12.5 mg PO BID #180 tab 11/28/20 [Rx Last Taken 12/15/20] prednisone 40 mg PO BREAKFAST 4 Days #8 tab 12/08/20 [Rx Last Taken Unknown] furosemide 40 mg tablet 40 mg PO BID tab 12/11/20 [History Last Taken 12/15/20] Remove Patch 1 patch TOPICAL DAILY@2200 #0 12/16/20 [Rx Last Taken Unknown] cyclobenzaprine 5 mg PO TID #0 tab 12/16/20 [Rx Last Taken Unknown] lidocaine 2 patch TOPICAL DAILY #0 ea 12/16/20 [Rx Last Taken Unknown] oxycodone 10 mg PO Q4H PRN PRN 2 Days #8 tab NS 12/16/20 [Rx Last Taken Unknown] Allergy/AdvReac Type Severity Reaction Status Date / Time ofloxacin [From Floxin] Allergy migraine Verified 12/15/20 17:57 diphenhydramine AdvReac shuts off Verified 12/15/20 17:57 [From Benadryl] my urine Family History Mother Heart problem Brother Dialysis patient Surgical History H/O colectomy History of back surgery History of benign neoplasm of salivary gland History of cardiac catheterization (~05/08/17) History of cataract extraction History of coronary artery bypass graft History of open heart surgery History of umbilical hernia repair ICD (implantable cardioverter-defibrillator) in place Social History Smoking Status: Former smoker how long ago did patient quit smokin's alcohol intake: never substance use type: does not use well-balanced diet: other details: Fluid restrictions 48 ozs per day caffeine: Yes Type: coffee Number of servings: 1 ROS ROS Narrative Severe back pain. No nausea or vomiting. Constipated, feels bloated. Unable to move without excruciating pain. No fever or chills. No shortness of breath or chest pain. No numbness or tingling. Constitutional Constitutional: Reports as per HPI Physical Exam Const alert and oriented x3 General Appearance: in distress Positive for moderate (Very painful, up in chair) Exam Limitations: physical limitations HEENT normocephalic and head/scalp atraumatic Neck supple General: trachea midline Resp normal respiratory effort and normal air movement Auscultation: clear to auscultation bilaterally and diminished lung sounds Cardio regular rate, regular rhythm, S1 normal heart sound and S2 normal heart sound GI Auscultation: normoactive bowel sounds Palpation: firm; Negative for tender Back/Spine General Back: tenderness Lumbar Spine / Lower Back: ROM limited, straight leg raise positive right and straight leg raise positive - left Extremity Extremity Narrative: Legs wrapped with Jesus Alberto bilaterally, edema seems to be at baseline Neuro CN's II-XII intact bilaterally Psych cooperative Mood & Affect: other Painful, grimacing, uncomfortable Thought Content: normal thought content Memory / Cognition: memory grossly intact Insight: insight good Judgement: judgement good
[2020-12-23 14:50] VITALS: PULSE 71; RESP 18; O2SAT 96
[2020-12-23] MEDS: Rivaroxaban 15 MG Tablet PO (17:15)
[2020-12-23 17:27] VITALS: BP 115/67; PULSE 74
[2020-12-24 04:23] VITALS: BP 113/60; PULSE 77; RESP 18; O2SAT 91
[2020-12-24] MEDS: Lidocaine 5% Patch 2 PATCH TOPICAL (04:23)
[2020-12-24] MEDS: NYSTATIN 500,000 UNIT/5 ML UDC 500000 UNIT PO ×4 (04:24→20:45)
[2020-12-24] MEDS: Carvedilol 12.5 MG Tablet PO ×2 (04:24→17:11)
[2020-12-24] MEDS: Citalopram 10 MG Tablet PO (04:24)
[2020-12-24] MEDS: cycloBENZAPRine HCl 5 MG TABLET PO ×2 (04:24→13:29)
[2020-12-24] MEDS: Senna/Docusate Sodium 1 Tablet 2 TABLET PO ×2 (04:24→17:11)
[2020-12-24] MEDS: Furosemide 40 MG Tablet PO ×2 (04:24→13:29)
[2020-12-24] MEDS: SACUBITRIL/VALSARTAN 97-103 MG TABLET 1 EACH PO ×2 (04:24→17:11)
[2020-12-24] MEDS: oxyCODONE 5 MG Tablet 10 MG PO (04:24)
[2020-12-24] MEDS: Finasteride 5 MG Tablet PO (04:24)
[2020-12-24] MEDS: Acetaminophen 500 MG Tablet 1000 MG PO (04:25)
[2020-12-24] MEDS: Menthol/Lanolin/Calamine/Znox 113 GM Tube 1 APPLIC TOPICAL ×2 (04:26→17:11)
--- NOTE | 2020-12-24 04:51 | NURSING ---
Pt called out stating IV was bleeding where the needle goes into the skin. This nurse in to assess SL, blood was noted around SL underneath dressing and down his wrist. RN in to assess, was able to clean and redress IV site, flushed well with no signs of infiltration. Will continue to monitor. RN aware.
[2020-12-24 05:49] LABS: Absolute Lymphocyte Count 0.66 X10^3/uL (0.83-4.51); Absolute Neutrophil Count 4.8 X10^3/uL (2.0-7.7); Basophil# 0.03 X10^3/uL; Basophil% 0.5 % (0-1); Eosinophils% 1.6 % (0-5); Hematocrit 38.8 % (40-54); Hemoglobin 12.4 g/dL (13.0-16.5); Lymphocyte # 0.66 X10^3/ul (0.83-4.51); Lymphocyte % 10.3 % (19-41); Mean Corpuscular Hgb 33.4 pg (27.0-32.0); Mean Corpuscular Volume 104.6 fL (80-94); Mean Platelet Vol. 10.3 fl (6.2-12.0); Monocyte# 0.75 X10^3/uL; Monocyte% 11.8 % (0-10); NRBC Flagged by Analyzer 0 % (0-5); Neutrophil # 4.79 X10^3/uL (2.7-7.7); Platelet Count 167 K/mm3 (150-450); RBC Distribution Width CV 12.7 % (11.6-14.6); RBC Distribution Width SD 49.3 fl (35.1-43.9); Red Blood Count 3.71 M/mm3 (4.6-6.2); White Blood Count 6.4 K/mm3 (4.4-11.0)
[2020-12-24 06:16] LABS: Anion Gap 4 (5-15); BUN 61 mg/dL (7-18); BUN/Creat Ratio 40.4 RATIO (10-20); Chloride 103 mmol/L (98-107); Creatinine, Serum 1.51 mg/dL (0.70-1.30); EST Glomerular Filtration Rate 47 mL/min (>60); Est Glom Filt Rate - Afr Amer 57 mL/min (>60); Estimated Creatinine Clearance 31.11 ml/min; Glucose 126 mg/dL (74-106); Sodium Level 138 mmol/L (136-145)
[2020-12-24 07:22] VITALS: O2SAT 98
[2020-12-24] MEDS: Tamsulosin HCl 0.4 MG Capsule 0.8 MG PO ×2 (08:29→17:11)
[2020-12-24] MEDS: Morphine 4 MG/ML Syringe IV ×2 (08:45→16:24)
[2020-12-24] MEDS: 0.9% Saline Lock 10 ML Syringe IV ×2 (08:46→16:26)
[2020-12-24 13:57] VITALS: BP 105/55; PULSE 73; RESP 18; TEMP 36.7; O2SAT 95
--- NOTE | 2020-12-24 14:15 | CASEMGMT ---
Plan of care meeting held with pt and son Garcia present and son Stevan on conference call. Pt is activly participating in PT/OT. Pt with significant pain which is impeding movement. Dr. Luo, pain specialist involved in pt care. Pt lives at home alone in independent living at [facility] and plans to return there upon discharge. Pt made aware of Medicare benefit and insurance coverage. No discharge date set at this time, will continue with plan of care. SW to continue to follow for discharge planning and emotional support. SWAPNA Navas
--- NOTE | 2020-12-24 16:13 | NURSING ---
Updated Family in pt's room
--- NOTE | 2020-12-24 16:45 | CHAPLAIN ---
Type of Pastoral Visit ___ Initial Visit _x__ Follow-up Visit ___ On-call Visit ___ General Patient Visit ___ Spiritual Assessment ___ Family Conference ___ Bereavement ___ Rapid Response ___ Code Blue ___ Other (describe below) Pastoral Care Referral From ___ Patient ___ Family _x__ Nurse ___ Physician ___ And Drying Supervisor Cooking Casing ___ Style Advisor ___ Other (describe below) Sacrament/Intervention _x__ Active listening ___ Anointing ___ Buddhist ___ Bereavement ___ Communion ___ Sandrine exploration ___ ___ Life review ___ Prayer ___ Reconciliation ___ Sacrament of Sick ___ Supportive presence ___ Wedding ___ Other (describe below) Pastoral Comments CHUCKING AND SAWING MACHINE OPERATOR requested visit to patient due to it being one year anniversary of his spouse's ; son of patient is also in room; offer of support
[2020-12-24] MEDS: Rivaroxaban 15 MG Tablet PO (17:11)
[2020-12-24 17:14] VITALS: BP 108/56; PULSE 73
[2020-12-24] MEDS: cycloBENZAPRine HCl 10 MG Tablet PO (20:45)
--- NOTE | 2020-12-24 23:17 | PCA ---
Pt declined to wash up this evening, stating he was too painful. em
[2020-12-25 02:38] VITALS: BP 135/71; PULSE 76; RESP 18; TEMP 36.6; O2SAT 99
[2020-12-25] MEDS: Morphine 4 MG/ML Syringe IV ×2 (02:40→16:59)
[2020-12-25] MEDS: 0.9% Saline Lock 10 ML Syringe IV (02:40)
[2020-12-25 05:03] VITALS: BP 155/68; PULSE 80
[2020-12-25] MEDS: Menthol/Lanolin/Calamine/Znox 113 GM Tube 1 APPLIC TOPICAL ×2 (05:04→17:56)
[2020-12-25] MEDS: Lidocaine 5% Patch 2 PATCH TOPICAL (05:05)
[2020-12-25] MEDS: Carvedilol 12.5 MG Tablet PO ×2 (05:08→18:57)
[2020-12-25] MEDS: Finasteride 5 MG Tablet PO (05:08)
[2020-12-25] MEDS: Senna/Docusate Sodium 1 Tablet 2 TABLET PO ×2 (05:08→18:57)
[2020-12-25] MEDS: SACUBITRIL/VALSARTAN 97-103 MG TABLET 1 EACH PO ×2 (05:08→18:57)
[2020-12-25] MEDS: cycloBENZAPRine HCl 10 MG Tablet PO ×3 (05:09→23:14)
[2020-12-25] MEDS: Citalopram 10 MG Tablet PO (05:09)
[2020-12-25] MEDS: Furosemide 40 MG Tablet PO ×2 (05:09→13:29)
[2020-12-25] MEDS: Polyethylene Glycol 3350 17 GM PACKET PO (05:11)
[2020-12-25] MEDS: NYSTATIN 500,000 UNIT/5 ML UDC 500000 UNIT PO ×2 (05:14→13:24)
[2020-12-25 07:40] VITALS: O2SAT 97
[2020-12-25] MEDS: Acetaminophen 500 MG Tablet 1000 MG PO ×3 (08:13→23:12)
[2020-12-25] MEDS: oxyCODONE 5 MG Tablet 10 MG PO ×4 (08:13→23:17)
[2020-12-25] MEDS: Tamsulosin HCl 0.4 MG Capsule 0.8 MG PO ×2 (08:14→18:57)
[2020-12-25 10:00] VITALS: PULSE 71; RESP 18; O2SAT 97
--- NOTE | 2020-12-25 13:54 | PCM.PN.PAL ---
Subjective Subjective Remains in excruciating pain. Nursing reports Dr. Luo has not been in yet, tentative plans for visiting today? Morphine 4 mg IV every 4 hours as needed has been ineffective. He is also getting oxycodone 10 mg every 4 hours as needed. Cyclobenzaprine was increased from 5 mg tabs to 10 mg tabs scheduled TID by Dr. Kraft. Reviewed blood work that was drawn on 12/24. Renal function is stable, GFR is 47. Objective Data Objective Data Vital Signs: Vital Signs Temp Pulse Resp BP Pulse Ox 97.8 F 80 18 155/68 H 97 12/25/20 02:38 12/25/20 05:03 12/25/20 02:38 12/25/20 05:03 12/25/20 07:40 Oxygen Flow Rate (L/min) 2 Oxygen Delivery Method Nasal Cannula Weight: 78.585 kg Body Mass Index (BMI) 27.8 Intake & Output: Intake and Output for Last 24 Hours 12/23/20 12/24/20 12/25/20 23:59 23:59 23:59 Intake Total 680 / 680 1090 / 1090 660 / 660 Output Total 725 / 725 Balance -45 / -45 1090 / 1090 660 / 660 Lab / Micro Data Result Diagrams: 12/24/20 05:25 12/24/20 05:25 Micro: Microbiology 12/18/20 13:00 Interface Orders SARS-CoV-2 Antigen (Rapid) - Final Physical Exam Const alert and oriented x3 General Appearance: in distress Positive for moderate (Very painful, up in chair) Exam Limitations: physical limitations Resp normal respiratory effort and normal air movement Auscultation: clear to auscultation bilaterally and diminished lung sounds Cardio regular rate, regular rhythm, S1 normal heart sound and S2 normal heart sound GI Auscultation: normoactive bowel sounds Palpation: firm; Negative for tender Extremity Extremity Narrative: Legs wrapped with Jesus Alberto bilaterally, edema seems to be at baseline Assessment & Plan Assessment/Plan (1) Debility: (2) Intractable low back pain: (3) Shortness of breath: (4) Muscle spasm: (5) Chronic systolic congestive heart failure: PLAN: 85-year-old male with several recent hospital and TCU admissions, seen today for palliative care f/u due to new intractable low back pain and debility. He was originally admitted to palliative care September 2020 for symptom management of shortness of breath and weakness. 1. Intractable low back pain: still very severe, cannot move at all without excruciating pain. Current meds: Lidocaine patches, Biofreeze ointment topical, morphine 4 mg IV q4h prn, tylenol 1Gm q6 prn, oxycodone 10mg q4 PRN, cyclobenzaprine [address] Luo visit, may need neuropathic agent. Recommendations: Schedule oxycodone 10 mg every 4, keep oxycodone 5 to 10 mg every 4 PRN dose as well. Monitor renal function, okay to continue morphine for now Consider short course of dexamethasone 4 mg daily, questionable whether will be effective. Possible steroid injection per [place]. 2. Weakness: He has had a few hospitalizations last month or two. Currently in TCU for rehab. We will continue to follow. 3. Shortness of breath: stable. reiterated he needs to keep close watch on CHF, monitoring weights, edema, etc. 4. Atrial flutter/recent COVID-19/CKD/s/p MVR, s/p CABG BPH/macrocytosis/leukopenia/thrombocytopenia/systolic CHF/PAF, recent respiratory failure with hypoxia: Complicates overall care, management, recovery, and prognosis. Patient to follow-up with his specialists once discharged from TCU. [facility] to do hematological workup. Thank you for the opportunity to participate in this patient's care, please do not hesitate to contact [facility] with any further questions or concerns. Palliative direct line is [phone]. We will follow up as outpatient and PRN while in the hospital. Greater than 50% of F2F visit dedicated to education and counseling of palliative care services, medications, comorbid conditions and potential assistance with management, and plan of care moving forward. He is agreeable to palliative services once he is discharged from TCU. Start time: 1344 End time: 1435 Established patient.
[2020-12-25 14:12] VITALS: BP 125/67; PULSE 74; RESP 18; TEMP 36.6; O2SAT 97
--- NOTE | 2020-12-25 18:35 | NURSING ---
PT IN SEVERE PAIN!!! CAN NOT EVEN PUT HEAD OF BED UP WITH OUT PT SCREAMING. DR. WEST AWARE AND NEW ORDER. DR. HARMON WAS NOTIFIED ON TUESDAY AND STILL HAS NOT STOPPED IN OR CALLED ABOUT PT AT THIS TIME. RN IS AWARE.
--- NOTE | 2020-12-25 19:00 | NURSING ---
Pt calling out in pain. This nurse entered room pt grimacing and crying out in pain stated it was a 15 out of 10. 4mg of Morphine IV given pt still having increased pain scheduled oxycodone given. Dolly Chi [employer] with pallative care updated new order for Morphine q4hr scheduled and q1hr prn. Dr. Kraft also updated and would like a CT without contrast of the Lumbar region. Dr. Luo up to see pt at this time and wanted to add Thoracic region to the CT scan. Pt insurance requires Pre Cert which will need to be called tomorrow SHIRIN.
[2020-12-25] MEDS: morphine 10 MG/ML Syringe 6 MG IV (21:29)
[2020-12-25] MEDS: MethylPREDNISolone DosePak 4 MG BOX PO (23:14)
--- NOTE | 2020-12-26 00:57 | NURSING ---
Went it to assess patient, he appeared to be resting comfortably. Asked about his pain and he said he's fine for now and said he doesn't want to take more pain meds than I have to. He declined scheduled dose of morphine at this time. Reminded him he can have a dose at any time if he needs and that RN will continue to check on him.
[2020-12-26] MEDS: oxyCODONE 5 MG Tablet 10 MG PO ×2 (02:45→06:12)
[2020-12-26 04:11] VITALS: BP 126/80; PULSE 74; RESP 12; TEMP 36.4; O2SAT 95
[2020-12-26] MEDS: morphine 10 MG/ML Syringe 6 MG IV ×2 (04:15→09:03)
[2020-12-26 06:05] VITALS: BP 113/66; PULSE 77
[2020-12-26] MEDS: Menthol/Lanolin/Calamine/Znox 113 GM Tube 1 APPLIC TOPICAL (06:13)
[2020-12-26] MEDS: Carvedilol 12.5 MG Tablet PO (06:14)
[2020-12-26] MEDS: SACUBITRIL/VALSARTAN 97-103 MG TABLET 1 EACH PO (06:14)
[2020-12-26] MEDS: cycloBENZAPRine HCl 10 MG Tablet PO (06:14)
[2020-12-26] MEDS: Citalopram 10 MG Tablet PO (06:14)
[2020-12-26] MEDS: Furosemide 40 MG Tablet PO (06:14)
[2020-12-26] MEDS: Polyethylene Glycol 3350 17 GM PACKET PO (06:15)
[2020-12-26] MEDS: Finasteride 5 MG Tablet PO (06:15)
[2020-12-26] MEDS: Senna/Docusate Sodium 1 Tablet 2 TABLET PO (06:16)
[2020-12-26] MEDS: Acetaminophen 500 MG Tablet 1000 MG PO (06:16)
[2020-12-26 07:01] VITALS: O2SAT 98
--- NOTE | 2020-12-26 07:50 | NURSING ---
Patient in too much pain with movement to turn. Unable to remove lidoderm patches or apply new ones overnight.
[2020-12-26] MEDS: 0.9% Saline Lock 10 ML Syringe IV (09:04)
[2020-12-26] MEDS: MethylPREDNISolone DosePak 4 MG BOX PO (09:09)
[2020-12-26] MEDS: Lidocaine 5% Patch 2 PATCH TOPICAL (09:09)
[2020-12-26] MEDS: Tamsulosin HCl 0.4 MG Capsule 0.8 MG PO (09:10)
--- NOTE | 2020-12-26 10:32 | NURSING ---
Dr Kraft updated on CT scan results, new order to send pt to ER. ER nurse given report. notified son Stevan as well. pt aware and agrees. pt continues to have significant amount of pain today, pt unable to take a few steps after standing for therapy.
[2020-12-26 10:36] VITALS: BP 118/69; PULSE 74; RESP 16; TEMP 36.6; O2SAT 94
--- NOTE | 2020-12-26 14:26 | DS.PCM_ITS ---
Providers Date of Admission: 12/16/20 Primary Care Physician: Dr. Prabhu Vee MD Consultations 12/16/20 22:38 Consult: Pain Management Routine Consulting Provider: Michael Luo Reason for Consult: Intractable low back pain EMERGENT Consult: Yes MD Notified: Yes Date Notified: 12/16/20 Time Notified: 09:22 Method of Notification: Answering Service Reason For Visit: INTRACTABLE BACK PAIN, DEBILITY Diagnosis Discharge Diagnosis (1) Debility: Status: Acute Code(s): R53.81 - Other malaise (2) Intractable low back pain: Status: Acute Code(s): M54.5 - Low back pain (3) Shortness of breath: Status: Acute Code(s): R06.02 - Shortness of breath (4) Muscle spasm: Status: Acute Code(s): M62.838 - Other muscle spasm (5) Chronic systolic congestive heart failure: Status: Chronic Code(s): I50.22 - Chronic systolic (congestive) heart failure Medications at Discharge Home Medications finasteride 5 mg PO DAILY 09/22/20 rivaroxaban 15 mg PO DAILY 10/13/20 peg [id number] 2 drp EACH EYE PRN PRN 10/21/20 sacubitril 49 mg-valsartan 51 mg tablet 1 tablet PO BID #60 tablet 10/21/20 acetaminophen 650 mg PO Q6H PRN PRN tablet 10/31/20 citalopram 10 mg PO DAILY #30 tablet 10/31/20 potassium chloride 10 meq PO BIDCM #60 tablet 10/31/20 cholecalciferol (vitamin D3) 25 mcg (1,000 unit) tablet 25 mcg PO DAILY 11/24/20 mecobalamin (vitamin B12) 5,000 mcg disintegrating tablet 5,000 mcg PO DAILY 11/24/20 jicvblyq-wfa-bicfl 200 mcg-lycop 175 mcg-lutei 250 mcg-herb 178 tablet 1 tab PO DAILY 11/24/20 omega-3 fatty acids 1,250 mg capsule 1,250 mg PO DAILY 11/24/20 tamsulosin 0.4 mg capsule 0.8 mg PO BID cap 11/24/20 vitamin E (dl, acetate) 450 mg (1,000 unit) capsule 450 mg PO DAILY 11/24/20 carvedilol 12.5 mg tablet 12.5 mg PO BID #180 tab 11/28/20 prednisone 40 mg PO BREAKFAST 4 Days #8 tab 12/08/20 furosemide 40 mg tablet 40 mg PO BID tab 12/11/20 Remove Patch 1 patch TOPICAL DAILY@2200 #0 12/16/20 cyclobenzaprine 5 mg PO TID #0 tab 12/16/20 acetaminophen 1,000 mg PO Q6H PRN 12/26/20 lidocaine 2 patch TOPICAL DAILY 12/26/20 menthol-zinc oxide [Calmoseptine] 1 applic TOPICAL BID 12/26/20 morphine 6 mg IV Q4H PRN 12/26/20 nystatin 50,000 unit PO 4X/DAY 12/26/20 oxycodone 10 mg PO Q4H 12/26/20 oxycodone 10 mg PO Q4H PRN 12/26/20 senna-docusate sodium 2 tab PO BID 12/26/20 Hospital Course Operations None Procedures None Summary of Care Provided Minutes Spent on Discharge: 30 Hospital Course: 85 year old male with below past medical history hospitalized for intractable low back pain, admitted to TCU with debility, here for rehabilitation, strengthening, prior to discharge home alone. 12/25/2020 Resident had worsening low back pain despite lumbar epidural steroid injection. 12/26/2020 CT L spine showed L4-5 discitis. 12/26/2020 Discharge resident to [facility] Emergency Department for evaluation, admission to hospital for lumbar discitis. Physical Exam Const alert and oriented x3 General Appearance: cooperative HEENT normocephalic Eyes PERRL and EOMs intact bilaterally Neck supple, no JVD and no carotid bruits Resp normal respiratory effort, normal air movement and clear to auscultation bilaterally Cardio regular rate and regular rhythm GI normal to inspection, nondistended, normoactive bowel sounds, non-tender and non-distended Extremity normal capillary refill General Extremity: Negative for edema Skin no rashes or lesions noted General Skin Exam: no breakdown Psych affect normal Appearance: appropriate Weight / BMI Weight Weight: 78.585 kg Body Mass Index (BMI) 27.8 ABG / Lab / Microbiology Data Result Diagrams: 12/24/20 05:25 12/24/20 05:25 Microbiology: Microbiology 12/18/20 13:00 Interface Orders SARS-CoV-2 Antigen (Rapid) - Final D/C Instructions Discharge Diet: No restrictions Discharge Activity: Return to Normal Activity Weight Bearing Status: Weight bearing as tolerated Call your doctor if you observe: Fever of 101 or Higher, Inability to urinate, Shortness of breath, Dizziness, Fainting spells, Chest pain and Uncontrolled pain Additional Instructions: 12/26/2020 Discharge resident to [facility] Emergency Department for evaluation, admission to hospital for lumbar discitis. Please Follow Up With: Michael Luo MD When: 2 weeks. Meaningful Use Info Meaningful Use Diagnoses (Choose all that apply): None applicable Discharge Plan Admission Admit Date/Time: 12/16/20 16:19 Primary Reason for Your Visit: Debility. Attending Provider: Melvin Kraft Chi Primary Care Provider: Prabhu Vee Consulting Providers: Michael Luo Instructions Additional Instructions / Restrictions: 12/26/2020 Discharge resident to [facility] Emergency Department for evaluation, admission to hospital for lumbar discitis. Discharge Orders/Prescriptions Prescriptions: No Action Entresto 49-51 mg tablet 1 tablet PO BID Qty: 60 RF: 11 tamsulosin 0.4 mg capsule 0.8 mg PO BID RF: 0 omega-3 fatty acids 1,250 mg capsule 1,250 mg PO DAILY RF: 0 Oneil Multivitamin For Men 200-175-250 mcg tablet 1 tab PO DAILY RF: 0 vitamin E (dl, acetate) 450 mg (1,000 unit) capsule 450 mg PO DAILY RF: 0 mecobalamin (vitamin B12) 5,000 mcg tablet,disintegrating 5,000 mcg PO DAILY RF: 0 cholecalciferol (vitamin D3) 25 mcg (1,000 unit) tablet 25 mcg PO DAILY RF: 0 finasteride 5 MG tablet 5 mg PO DAILY RF: 0 rivaroxaban 15 MG tablet 15 mg PO DAILY RF: 0 citalopram 10 MG tablet 10 mg PO DAILY Qty: 30 RF: 0 acetaminophen 500 MG tablet 650 mg PO Q6H PRN PRN (Reason: Pain Score 1-10) RF: 0 potassium chloride 10 MEQ tablet 10 meq PO BIDCM Qty: 60 RF: 0 peg [id number] 1 DRP bottle 2 drp EACH EYE PRN PRN (Reason: Dry Eyes) RF: 0 prednisone 20 mg Tablet 40 mg PO BREAKFAST 4 Days Qty: 8 RF: 0 cyclobenzaprine 5 mg Tablet 5 mg PO TID Qty: 0 RF: 0 Remove Patch 1 patch topical DAILY@2200 Qty: 0 RF: 0 morphine 8 mg/mL Solution 6 mg IV Q4H PRN (Reason: Pain) RF: 0 lidocaine 5 % adhesive patch,medicated 2 patch topical DAILY RF: 0 oxycodone 5 mg tablet 10 mg PO Q4H RF: 0 Calmoseptine 0.44-20.6 % Ointment 1 applic TOPICAL BID RF: 0 nystatin 100,000 unit/mL Suspension 50,000 unit PO 4X/DAY RF: 0 senna-docusate sodium Tablet 2 tab PO BID RF: 0 acetaminophen 500 mg Tablet 1,000 mg PO Q6H PRN (Reason: Pain) RF: 0 oxycodone 5 mg Tablet 10 mg PO Q4H PRN (Reason: Pain) RF: 0 carvedilol 12.5 mg tablet 12.5 mg PO BID Qty: 180 RF: 3 furosemide 40 mg tablet 40 mg PO BID RF: 0 Referrals / Follow Up: Prabhu Vee MD [Primary Care Provider] - Disposition Disposition (needs filled in before D/C Order can be placed): [facility] Discharge Orders: Discharge Patient (Routine); Ordered 12/26/20 Ordered By: Dr. Melvin Kraft
== END 2020-12-26 14:08 | disposition short-term general hospital (02) | DRG 552 ==
PROVIDERS: Admitting Provider Family Medicine Geriatric Medicine; PCP Family Medicine; Visit Provider Family Medicine Geriatric Medicine
DX: M46.46 Discitis, unspecified, lumbar region (principal); I50.22 Chronic systolic (congestive) heart failure; I13.0 Hypertensive heart and chronic kidney disease with heart failure and stage 1 through stage 4 chronic kidney disease, or unspecified chronic kidney disease; I48.92 Unspecified atrial flutter; I25.10 Atherosclerotic heart disease of native coronary artery without angina pectoris; N18.9 Chronic kidney disease, unspecified; I48.0 Paroxysmal atrial fibrillation; I25.5 Ischemic cardiomyopathy; F32.9 Major depressive disorder, single episode, unspecified; N40.0 Benign prostatic hyperplasia without lower urinary tract symptoms; I11.0 Hypertensive heart disease with heart failure; H91.93 Unspecified hearing loss, bilateral; Z87.891 Personal history of nicotine dependence; Z79.899 Other long term (current) drug therapy; Z79.51 Long term (current) use of inhaled steroids; Z95.1 Presence of aortocoronary bypass graft; Z95.810 Presence of automatic (implantable) cardiac defibrillator; Z90.49 Acquired absence of other specified parts of digestive tract; Z86.16 Personal history of COVID-19
CPT/HCPCS: 36415; 80048; 85025; 87426; 97110; 97116; 97162; 97166; 97530; 97535; 97802; 99251; J7120; A4216; G0463

== ENCOUNTER 2020-12-19 11:23 | Day surgery (SDC) | payer MEDICARE, OTHER, SELFPAY ==
[2020-12-19] VITALS (8 sets, daily range): BP systolic 75–121; BP diastolic 51–72; PULSE 70–77; RESP 16–18; TEMP 36.8–37.3; O2SAT 94–100; BMI 28.1
[2020-12-19] MEDS: Lactated Ringers 1,000 ML 100 ML IV (12:00)
--- NOTE | 2020-12-19 12:00 | RAD_ITS ---
STUDY: X-RAY - fluoroscopic guidance lumbar block. REASON FOR EXAM: Male, 85 years old. BLOCK, LUMBAR FACET L4-S1, BILAT TECHNIQUE: Fluoroscopic guidance was provided for the lumbar block procedure. COMPARISON: None FINDINGS: 6 images were obtained during the exam. Images reveal several needles in place bilaterally along the facets at L4-S1 bilaterally. The fluoroscopy time not available. RAD/L/S Spine Min 4 Views IMPRESSION: Fluoroscopically guided lumbar block as described. For details, please see operative report. Electronically Signed: Manasa Valenzuela MD at 2:43 EDT , Service support ,
[2020-12-19] MEDS: Bupivacaine 0.25% 30 ML Vial (12:42)
[2020-12-19] MEDS: Triamcinolone Acetonide 40 MG/ML Vial (12:48)
[2020-12-19] MEDS: Morphine 2 MG/ML Syringe IV (14:06)
--- NOTE | 2020-12-19 14:22 | SUR.PHASEII ---
Arrives to Phase II: Very painful with any movement in bed, unable to raise HOB above 10-15 degrees post-op which is not a safe position for PO intake. Notified Dr Luo who ordered post-op pain med prior to transfer back to TCU.
== END 2020-12-19 14:58 ==
LOC: SDC 11:24 → AC 11:24
PROVIDERS: PCP Family Medicine; Visit Provider Anesthesiology Pain Medicine
PROC: 3E0T3BZ Introduction of Anesthetic Agent into Peripheral Nerves and Plexi, Percutaneous Approach (ICD-10-PCS; principal; 2020-12-19 11:55)
DX: M47.896 Other spondylosis, lumbar region (principal); I11.0 Hypertensive heart disease with heart failure; I50.22 Chronic systolic (congestive) heart failure; I48.0 Paroxysmal atrial fibrillation; J96.11 Chronic respiratory failure with hypoxia; I25.5 Ischemic cardiomyopathy; I25.10 Atherosclerotic heart disease of native coronary artery without angina pectoris; N40.0 Benign prostatic hyperplasia without lower urinary tract symptoms; F32.9 Major depressive disorder, single episode, unspecified; Z79.891 Long term (current) use of opiate analgesic; Z79.01 Long term (current) use of anticoagulants; Z99.81 Dependence on supplemental oxygen; Z79.899 Other long term (current) drug therapy; Z95.0 Presence of cardiac pacemaker; Z95.1 Presence of aortocoronary bypass graft
CPT/HCPCS: 01992; 64493; 64494 ×2; 64483; 72110; A4216

== ENCOUNTER → 2020-12-26 07:18 | Outpatient (CLI) | payer MEDICARE, OTHER, SELFPAY ==
[2020-12-19 11:44] VITALS: BMI 28.1
--- NOTE | 2020-12-26 07:21 | CT_ITS ---
History: INTRACTABLE BACK PAIN CT of the Lumbar Spine: Comparison: CT abdomen and pelvis from December 07, 2020 Findings: Multiplanar CT images of the lumbar spine show no acute fracture or dislocation. Multilevel degenerative narrowing of the intervertebral discs noted most prominent at the L3-4, L4-5 and L5-S1 levels. Endplate changes at the L4-5 level have progressed from prior exam raised the possibility of acute discitis. No evidence of paraspinal soft tissue abscess. Multilevel facet arthropathy. L4 laminectomy again noted. Mild to moderate narrowing of the spinal canal at the L3-4 level related to prominent left-sided facet hypertrophy. Prominent neural foraminal stenosis noted bilaterally at L3-4, L4-5 and L5-S1 related to vertebral body and facet osteophytosis. 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 Interval development of radiolucent change along the endplates at L4-5 suggestive of acute discitis. Additional findings detailed above. Individualized dose optimization techniques were used for this CT. at 0821 Reported and signed by: Lewis Fernandes MD Electronically Signed: Lewis Fernandes MD at 8:20 EDT Tel , Service support , CT/Spine Lumbar without Contrast
--- NOTE | 2020-12-26 07:21 | CT_ITS ---
STUDY: CT THORACIC SPINE WITHOUT CONTRAST REASON FOR EXAM: Male, 85 years old. INTRACTABLE BACK PAIN RADIATION DOSAGE (If Supplied By Facility): CTDIvol = ( 21.71 ) mGy, DLP = ( 861.16 ) mGycm TECHNIQUE: The patient was scanned in a multi detector CT scanner. High resolution imaging was performed. Images were obtained from T1 to L1 level. Sagittal and coronal images were reconstructed. Individualized dose optimization techniques were used for this CT. COMPARISON: None. FINDINGS: Normal visualized cervical spine. There is an increased kyphosis of the thoracic spine. There is no substantial scoliosis. There is multilevel endplate spondylosis of the thoracic spine. There is multilevel degenerative disc disease with loss of the disc space heights. Atherosclerotic calcification of the aortic arch and descending thoracic aorta. Scattered calcified granulomas in both lungs. Tiny bilateral pleural effusions. CT/Spine Thoracic without Contras IMPRESSION: Multilevel disc space narrowing and spondylosis. Electronically Signed: Felipe Beckman MD at 8:31 EDT , Service support ,
== END ==
PROVIDERS: PCP Family Medicine; Referring Provider Family Medicine Geriatric Medicine; Visit Provider Family Medicine Geriatric Medicine
DX: M54.5 Low back pain (principal); M54.6 Pain in thoracic spine
CPT/HCPCS: 72128; 72131

== ENCOUNTER 2020-12-26 10:51 | Inpatient (IN) | payer MEDICARE, OTHER, SELFPAY ==
[2020-12-19 11:44] VITALS: BMI 28.1
[2020-12-26] VITALS (8 sets, daily range): BP systolic 109–146; BP diastolic 65–80; PULSE 73–84; RESP 14–20; TEMP 36.3–37; O2SAT 93–100; BMI 29.7; BMI 29.1
--- NOTE | 2020-12-26 11:36 | EDS_ITS ---
HPI History of Present Illness Chief Complaint: Back Detail of Chief Complaint: Back pain for 1 week Informant: patient Narrative Narrative: Patient presents to the emergency department complaint of back pain for the last week. Patient was admitted to the transitional care unit where he has been receiving around the clock morphine and hydrocodone and not getting good pain relief. Patient is supposed to see pain management. His Xarelto is currently being held so that he can have a back injection. Today patient had CT scans of the thoracic and lumbar spine. The CT scan of the lumbar spine showed discitis at L4-5. Patient had multilevel degenerative disc disease. Patient denies any falls or head injuries. Patient denies any pain rating down his legs. He denies weakness in extremities. He also gives history of Covid infection about 5 weeks ago and was admitted to the hospital for about 3 weeks. Prior similar symptoms: No PFSH PFSH Medical History Atherosclerosis of coronary artery of [place] heart without angina pectoris Cancer Cardiology follow-up encounter Congestive heart failure (CHF) Coronary artery disease Depression Former smoker Hearing loss, left Hearing loss, right History of renal disease Hx of echocardiogram (~10/10/20) Hx of transesophageal echocardiography (TYRA) for monitoring (~04/29/17) Hypertension Irregular heart beat Ischemic cardiomyopathy Loss of hearing On home oxygen therapy Pacemaker Walker as ambulation aid Home Medications finasteride 5 mg PO DAILY 09/22/20 [History Last Taken 12/15/20] rivaroxaban 15 mg PO DAILY 10/13/20 [History Last Taken 12/15/20] peg [id number] 2 drp EACH EYE PRN PRN 10/21/20 [History Last Taken 12/15/20] sacubitril 49 mg-valsartan 51 mg tablet 1 tablet PO BID #60 tablet 10/21/20 [Rx Last Taken 12/15/20] acetaminophen 650 mg PO Q6H PRN PRN tablet 10/31/20 [Rx Last Taken 12/15/20] citalopram 10 mg PO DAILY #30 tablet 10/31/20 [Rx Last Taken 12/15/20] potassium chloride 10 meq PO BIDCM #60 tablet 10/31/20 [Rx Last Taken 12/15/20] cholecalciferol (vitamin D3) 25 mcg (1,000 unit) tablet 25 mcg PO DAILY 11/24/20 [History Last Taken 12/15/20] mecobalamin (vitamin B12) 5,000 mcg disintegrating tablet 5,000 mcg PO DAILY 11/24/20 [History Last Taken 12/15/20] phdwicnc-zfu-bqris 200 mcg-lycop 175 mcg-lutei 250 mcg-herb 178 tablet 1 tab PO DAILY 11/24/20 [History Last Taken 12/15/20] omega-3 fatty acids 1,250 mg capsule 1,250 mg PO DAILY 11/24/20 [History Last Taken 12/15/20] tamsulosin 0.4 mg capsule 0.8 mg PO BID cap 11/24/20 [History Last Taken 12/15/20] vitamin E (dl, acetate) 450 mg (1,000 unit) capsule 450 mg PO DAILY 11/24/20 [History Last Taken 12/15/20] carvedilol 12.5 mg tablet 12.5 mg PO BID #180 tab 11/28/20 [Rx Last Taken 12/15/20] prednisone 40 mg PO BREAKFAST 4 Days #8 tab 12/08/20 [Rx Last Taken Unknown] furosemide 40 mg tablet 40 mg PO BID tab 12/11/20 [History Last Taken 12/15/20] Remove Patch 1 patch TOPICAL DAILY@2200 #0 12/16/20 [Rx Last Taken Unknown] cyclobenzaprine 5 mg PO TID #0 tab 12/16/20 [Rx Last Taken Unknown] lidocaine 2 patch TOPICAL DAILY #0 ea 12/16/20 [Rx Last Taken Unknown] oxycodone 10 mg PO Q4H PRN PRN 2 Days #8 tab NS 12/16/20 [Rx Last Taken Unknown] Allergy/AdvReac Type Severity Reaction Status Date / Time ofloxacin [From Floxin] Allergy migraine Verified 12/26/20 10:57 diphenhydramine AdvReac shuts off Verified 12/26/20 10:57 [From Benadryl] my urine Family History Mother Heart problem Brother Dialysis patient Surgical History H/O colectomy History of back surgery History of benign neoplasm of salivary gland History of cardiac catheterization (~05/08/17) History of cataract extraction History of coronary artery bypass graft History of open heart surgery History of umbilical hernia repair ICD (implantable cardioverter-defibrillator) in place Social History Smoking Status: Former smoker how long ago did patient quit smokin's alcohol intake: never substance use type: does not use well-balanced diet: other details: Fluid restrictions 48 ozs per day caffeine: Yes Type: coffee Number of servings: 1 ROS ROS ED Constitutional Constitutional ED: Reports systems reviewed and no addt'l complaints, except as documented; Denies body ache(s), change in weight or chills Eyes Eyes: Denies acute decrease in peripheral vision, change in vision, double vision or loss of vision ENT ENT ED: Reports none; Denies ear pain, lip swelling, loss taste/smell, neck pain, otalgia or sore throat Cardiovascular Cardiovascular: Reports none; Denies abdominal pain, chest pain with activity, leg edema, lightheadedness, palpitations, rapid heart rate or syncope Respiratory/Chest Respiratory/Chest: Reports none; Denies change in mental status, dry cough, dyspnea, hemoptysis, shortness of breath at rest or shortness of breath with exertion Gastrointestinal Gastrointestinal: Reports none; Denies abdominal pain, change in stool character, diarrhea, hematemesis, hematochezia, melena, rectal bleeding or vomiting Genitourinary Genitourinary ED: Reports none; Denies abdominal discomfort, anuria, dysuria, genital pain or polyuria Musculoskeletal Musculoskeletal: Reports none and back pain; Denies arthralgias, difficulty walking, extremity pain, muscle weakness or myalgias Integumentary Reports none; Denies abscess or rash Neurologic Neurologic: Reports none; Denies abnormal gait, confusion, focal weakness, frequent falls, headache(s), loss of vision, numbness, paresthesias, radicular pain, vertigo or weakness Psychiatric Psychiatric: Reports systems reviewed and no addt'l complaints, except as documented and none; Denies behavioral changes, confusion, difficulty concentrating, hallucinations, suicidal ideation, tactile hallucinations or v isual hallucinations Endocrine Endocrinology: Denies none, cold intolerance, excessive sweating, fatigue or heat intolerance Hematologic/Lymphatic Hematologic/Lymphatic: Reports none; Denies anemia, easy bleeding or easy bruising Allergic/Immunologic Allergic/Immunologic ED: Denies as per HPI, none, lip swelling, mouth swelling, throat swelling, tongue swelling or hives EXAM Physical Exam Const Vital Signs: 12/26/20 10:53 12/26/20 12:07 12/26/20 12:15 Temperature 97.3 F L 97.3 F L Temperature Source Temporal Temporal Pulse Rate 73 84 84 Respiratory Rate 17 20 H 20 H Blood Pressure 128/70 H 146/75 H 146/75 H Blood Pressure Mean 89 98 98 Pulse Ox 98 93 93 Oxygen Delivery Method Room Air Room Air Room Air 12/26/20 13:25 Temperature 98.6 F Temperature Source Oral Pulse Rate 73 Respiratory Rate 14 Blood Pressure 109/65 Blood Pressure Mean 79 Pulse Ox 97 Oxygen Delivery Method Room Air Positive well nourished and well developed General Appearance ED: well developed and NAD HEENT Reports TM's clear and moist mucous membranes normocephalic and atraumatic; Negative for trauma or tenderness Tympanic Membrane ED: Yes TM's clear Eyes PERRL and EOMs intact bilaterally General Eye ED: Negative for pale conjunctiva or scleral icterus Neck no lymphadenopathy, supple and no JVD General: Negative for tenderness Chest Wall inspection of chest normal and palpation of chest normal Chest: Negative for tenderness Resp normal respiratory effort and clear to auscultation bilaterally Effort and Inspection: Negative for respiratory distress or pain with movement Auscultation: Negative for rhonchi, wheezes or diminished lung sounds Cardio regular rate, regular rhythm, S1 normal heart sound, S2 normal heart sound and no murmurs Peripheral Pulses: pulses 2+ throughout GI normal to inspection, nondistended, normoactive bowel sounds, soft to palpation, non-tender, non-distended and no masses Back/Spine no CVA tenderness and no thoracic nor lumbar tenderness Back/Spine Narrative: Patient with tenderness palpation over the lower lumbar spine. He does have a positive straight leg raise with pain pain at about 45 degrees while supine with the left leg. Negative straight leg raising with the right leg. Normal sensation distally. Normal L5 extension. Deep tendon reflexes are plus 2 out of 4 bilaterally at the patella and Achilles. Extremity normal to inspection General Extremety ED: Negative for edema General Extremity: Negative for edema Neuro oriented x3, CN's II-XII intact bilaterally, no sensory deficits noted and gait normal Sensorium / Orientation: awake, alert, oriented to person, oriented to place and oriented to time Motor Exam: strength 5/5 throughout and strength abnormal Psych mental status grossly normal Skin no rashes or lesions noted and no wounds MDM MDM MDM Narrative Medical decision making narrative: Patient case discussed with hospitalist who will evaluate patient for admission. He was started on vancomycin and Zosyn. Patient appears to have discitis with intractable back pain. I attempted to contact Dr. Anderson who is back surgeon however have not heard back at this time. Patient will be admitted for ID consult and antibiotics as well as pain control. Lab Data Attestation: I reviewed the patient's lab results. Labs: Laboratory Results - last 24 hr 12/26/20 12/26/20 12/26/20 11:50 11:50 11:50 WBC 6.8 RBC 4.03 L Hgb 13.2 Hct 41.9 MCV 104.0 H MCH 32.8 H MCHC 31.5 L RDW Std Deviation 49.3 H RDW Coeff of Daryl 12.9 Plt Count 160 MPV 10.9 Immature Gran % (Auto) 0.400 Neut % (Auto) 84.0 H Lymph % (Auto) 6.8 L [place] % (Auto) 8.7 Eos % (Auto) 0.0 Baso % (Auto) 0.1 Absolute Neuts (auto) 5.7 Absolute Lymphs (auto) 0.46 L Nucleated RBC % 0 Differential Comment COMMENT ESR 22 H PT 15.5 H INR 1.3 APTT 34.8 Sodium 141 Potassium 4.3 Chloride 101 Carbon Dioxide 39.0 H Anion Gap 1 L BUN 54 H Creatinine 1.59 H Estim Creat Clear Calc 29.55 Est GFR (MDRD) Af Amer 53 L Est GFR (MDRD) Non-Af 44 L BUN/Creatinine Ratio 34.0 H Glucose 141 H Lactic Acid Calcium 9.0 Total Bilirubin 0.60 AST 15 ALT 21 Alkaline Phosphatase 89 Total Protein 7.2 Albumin 3.1 L Globulin 4.1 Albumin/Globulin Ratio 0.8 L Urine Color Urine Clarity Urine pH Ur Specific [place] Urine Protein Urine Glucose (UA) Urine Ketones Urine Occult Blood Urine Nitrite Urine Bilirubin Urine Urobilinogen Ur Leukocyte Esterase Urine RBC Urine WBC Ur Squamous Epith Cells Urine Bacteria Urine Mucus 12/26/20 12/26/20 11:50 12:00 WBC RBC Hgb Hct MCV MCH MCHC RDW Std Deviation RDW Coeff of Daryl Plt Count MPV Immature Gran % (Auto) Neut % (Auto) Lymph % (Auto) [place] % (Auto) Eos % (Auto) Baso % (Auto) Absolute Neuts (auto) Absolute Lymphs (auto) Nucleated RBC % Differential Comment ESR PT INR APTT Sodium Potassium Chloride Carbon Dioxide Anion Gap BUN Creatinine Estim Creat Clear Calc Est GFR (MDRD) Af Amer Est GFR (MDRD) Non-Af BUN/Creatinine Ratio Glucose Lactic Acid 2.4 H* Calcium Total Bilirubin AST ALT Alkaline Phosphatase Total Protein Albumin Globulin Albumin/Globulin Ratio Urine Color Yellow Urine Clarity Clear Urine pH 5.0 Ur Specific [place] 1.015 Urine Protein Negative Urine Glucose (UA) Normal Urine Ketones Negative Urine Occult Blood Negative Urine Nitrite Negative Urine Bilirubin Negative Urine Urobilinogen Normal Ur Leukocyte Esterase Negative Urine RBC 0 SEEN Urine WBC 0 SEEN Ur Squamous Epith Cells 0 SEEN Urine Bacteria 0 SEEN Urine Mucus 0 SEEN Discharge Plan Triage Chief Complaint: Back ED Provider: Kirk Garrett Dx/Rx/DC Orders Clinical Impression: Intractable back pain, Discitis Prescriptions: No Action Entresto 49-51 mg tablet 1 tablet PO BID Qty: 60 RF: 11 tamsulosin 0.4 mg capsule 0.8 mg PO BID RF: 0 omega-3 fatty acids 1,250 mg capsule 1,250 mg PO DAILY RF: 0 Oneil Multivitamin For Men 200-175-250 mcg tablet 1 tab PO DAILY RF: 0 vitamin E (dl, acetate) 450 mg (1,000 unit) capsule 450 mg PO DAILY RF: 0 mecobalamin (vitamin B12) 5,000 mcg tablet,disintegrating 5,000 mcg PO DAILY RF: 0 cholecalciferol (vitamin D3) 25 mcg (1,000 unit) tablet 25 mcg PO DAILY RF: 0 finasteride 5 MG tablet 5 mg PO DAILY RF: 0 rivaroxaban 15 MG tablet 15 mg PO DAILY RF: 0 citalopram 10 MG tablet 10 mg PO DAILY Qty: 30 RF: 0 acetaminophen 500 MG tablet 650 mg PO Q6H PRN PRN (Reason: Pain Score 1-10) RF: 0 potassium chloride 10 MEQ tablet 10 meq PO BIDCM Qty: 60 RF: 0 peg [id number] 1 DRP bottle 2 drp EACH EYE PRN PRN (Reason: Dry Eyes) RF: 0 prednisone 20 mg Tablet 40 mg PO BREAKFAST 4 Days Qty: 8 RF: 0 lidocaine 5 % Adhesive Patch,Medicated 2 patch topical DAILY Qty: 0 RF: 0 oxycodone 5 mg Tablet 10 mg PO Q4H PRN PRN (Reason: Pain Score 4-10) 2 Days Qty: 8 RF: 0 cyclobenzaprine 5 mg Tablet 5 mg PO TID Qty: 0 RF: 0 Remove Patch 1 patch topical DAILY@2200 Qty: 0 RF: 0 carvedilol 12.5 mg tablet 12.5 mg PO BID Qty: 180 RF: 3 furosemide 40 mg tablet 40 mg PO BID RF: 0 Primary Care Provider: Prabhu Vee Referrals: Prabhu Vee MD [Primary Care Provider] - Disposition Disposition: Acute Care Hospital [facility]
[2020-12-26] MEDS: 0.9% Normal Saline 1,000 ML 150 ML IV (12:05)
[2020-12-26 12:11] LABS: Erythrocyte Sedimentation Rate 22 mm/hr (0-20)
[2020-12-26 12:14] LABS: International Normalized Ratio 1.3; Prothrombin Time (Protime)PT. 15.5 SECONDS (11.7-14.9)
[2020-12-26 12:15] LABS: Partial Thromboplast Time 34.8 Seconds (24.1-36.2)
[2020-12-26 12:18] LABS: Absolute Lymphocyte Count 0.46 X10^3/uL (0.83-4.51); Absolute Neutrophil Count 5.7 X10^3/uL (2.0-7.7); Basophil# 0.01 X10^3/uL; Basophil% 0.1 % (0-1); Hematocrit 41.9 % (40-54); Hemoglobin 13.2 g/dL (13.0-16.5); Lymphocyte # 0.46 X10^3/ul (0.83-4.51); Lymphocyte % 6.8 % (19-41); Mean Corp Hgb Conc 31.5 g/dL (32-36); Mean Corpuscular Hgb 32.8 pg (27.0-32.0); Mean Platelet Vol. 10.9 fl (6.2-12.0); Monocyte# 0.59 X10^3/uL; Monocyte% 8.7 % (0-10); NRBC Flagged by Analyzer 0 % (0-5); Neutrophil # 5.67 X10^3/uL (2.7-7.7); POSITIVE DIFFERENTIAL YES; Platelet Count 160 K/mm3 (150-450); RBC Distribution Width CV 12.9 % (11.6-14.6); RBC Distribution Width SD 49.3 fl (35.1-43.9); Red Blood Count 4.03 M/mm3 (4.6-6.2); White Blood Count 6.8 K/mm3 (4.4-11.0)
[2020-12-26 12:21] LABS: Differential Indicated SCAN CRITERIA MET
[2020-12-26 12:22] LABS: ALB/GLOB Ratio 0.8 RATIO (0.9-2.4); AST(SGOT) 15 U/L (15-37); Alanine Aminotransfer ALT/SGPT 21 U/L (16-61); Albumin, Serum 3.1 g/dL (3.2-5.0); Alkaline Phosphatase 89 U/L (45-117); Anion Gap 1 (5-15); BUN 54 mg/dL (7-18); Chloride 101 mmol/L (98-107); Creatinine, Serum 1.59 mg/dL (0.70-1.30); EST Glomerular Filtration Rate 44 mL/min (>60); Est Glom Filt Rate - Afr Amer 53 mL/min (>60); Estimated Creatinine Clearance 29.55 ml/min; Globulin 4.1 g/dL (2.2-4.2); Glucose 141 mg/dL (74-106); Potassium 4.3 mmol/L (3.5-5.1); Protein, Total 7.2 g/dL (6.4-8.2); Sodium Level 141 mmol/L (136-145)
[2020-12-26 12:27] LABS: Bacteria 0 SEEN /hpf (None Seen); Mucous, Urine 0 SEEN /hpf (<or=2+); Red Blood Cells-Urine 0 SEEN /hpf (0-5); Squamous Epithelial Cells - UA 0 SEEN /hpf (0-5); White Blood Cells 0 SEEN /hpf (0-5)
[2020-12-26 12:29] LABS: Color, Urine Yellow (Yellow); Glucose, Dipstick Normal (Normal); Ketone-Dipstick Negative (Negative); Leukocyte Esterase-Dipstick Negative /ul (Negative); Nitrite-Dipstick Negative (Negative); Occult Blood-Urine Negative /ul (Negative); Protein-Dipstick Negative (Negative); Specific Gravity, Urine 1.015 (1.002-1.030); Urine Bilirubin Dipstick Negative (Negative); Urine Clarity Clear (Clear); Urine Urobilinogen Normal (Normal)
[2020-12-26 12:32] LABS: Lactic Acid 2.4 mmol/L (0.4-1.9)
[2020-12-26] MEDS: 0.9% Normal Saline 1,000 ML 999 ML IV (13:22)
--- NOTE | 2020-12-26 14:29 | HP.PCM.HOS_ITS ---
HPI - General HPI Narrative ERIK ARCHER, is a 85 M who presents with low back pain. Back pain has been bothering him for some period of time this over the past couple months. Is just progressively gotten worse. He denies any bowel or bladder incontinence. He denies any lower extremity weakness or paresthesias. He was hospitalized from December 15 to the first and transferred to the transitional care unit. Patient underwent a CAT scan of his thoracic and lumbar spine. There is concern for discitis in the L4-5 area. Patient was sent to the emergency room. In the emergency room, patient was hemodynamically stable. Did have a mild elevation his lactic acid. He did receive vancomycin and Pipracil/tazobactam. Patient states that few days prior, he did have an injection into his back performed by Dr. Luo. [facility] Medical History Atherosclerosis of coronary artery of [place] heart without angina pectoris Cancer Cardiology follow-up encounter Congestive heart failure (CHF) Coronary artery disease Depression Former smoker Hearing loss, left Hearing loss, right History of renal disease Hx of echocardiogram (~10/10/20) Hx of transesophageal echocardiography (TYRA) for monitoring (~04/29/17) Hypertension Irregular heart beat Ischemic cardiomyopathy Loss of hearing On home oxygen therapy Pacemaker Walker as ambulation aid Home Medications finasteride 5 mg PO DAILY 09/22/20 [History Last Taken 12/15/20] rivaroxaban 15 mg PO DAILY 10/13/20 [History Last Taken 12/15/20] peg [id number] 2 drp EACH EYE PRN PRN 10/21/20 [History Last Taken 12/15/20] sacubitril 49 mg-valsartan 51 mg tablet 1 tablet PO BID #60 tablet 10/21/20 [Rx Last Taken 12/15/20] citalopram 10 mg PO DAILY #30 tablet 10/31/20 [Rx Last Taken 12/15/20] potassium chloride 10 meq PO BIDCM #60 tablet 10/31/20 [Rx Last Taken 12/15/20] cholecalciferol (vitamin D3) 25 mcg (1,000 unit) tablet 25 mcg PO DAILY 11/24/20 [History Last Taken 12/15/20] mecobalamin (vitamin B12) 5,000 mcg disintegrating tablet 5,000 mcg PO DAILY 11/24/20 [History Last Taken 12/15/20] aazarvea-rxa-syskc 200 mcg-lycop 175 mcg-lutei 250 mcg-herb 178 tablet 1 tab PO DAILY 11/24/20 [History Last Taken 12/15/20] omega-3 fatty acids 1,250 mg capsule 1,250 mg PO DAILY 11/24/20 [History Last Taken 12/15/20] tamsulosin 0.4 mg capsule 0.8 mg PO BID cap 11/24/20 [History Last Taken 12/15/20] vitamin E (dl, acetate) 450 mg (1,000 unit) capsule 450 mg PO DAILY 11/24/20 [History Last Taken 12/15/20] carvedilol 12.5 mg tablet 12.5 mg PO BID #180 tab 11/28/20 [Rx Last Taken 12/15/20] prednisone 40 mg PO BREAKFAST 4 Days #8 tab 12/08/20 [Rx Last Taken Unknown] furosemide 40 mg tablet 40 mg PO BID tab 12/11/20 [History Last Taken 12/15/20] Remove Patch 1 patch TOPICAL DAILY@2200 #0 12/16/20 [Rx Last Taken Unknown] cyclobenzaprine 5 mg PO TID #0 tab 12/16/20 [Rx Last Taken Unknown] acetaminophen 1,000 mg PO Q6H PRN 12/26/20 [History Last Taken 12/26/20 06:16] lidocaine 2 patch TOPICAL DAILY 12/26/20 [History Last Taken 12/26/20 09:09] menthol-zinc oxide [Calmoseptine] 1 applic TOPICAL BID 12/26/20 [History Last Taken 12/26/20 06:13] morphine 6 mg IV Q4H PRN 12/26/20 [History Last Taken 12/26/20 09:03 6 mg] nystatin 50,000 unit PO 4X/DAY 12/26/20 [History Last Taken 12/25/20] oxycodone 10 mg PO Q4H PRN 12/26/20 [History Last Taken 12/26/20] oxycodone 10 mg PO Q4H PRN 12/26/20 [History Last Taken 12/26/20 06:12] senna-docusate sodium 2 tab PO BID 12/26/20 [History Last Taken 12/26/20 06:16] Allergy/AdvReac Type Severity Reaction Status Date / Time ofloxacin [From Floxin] Allergy migraine Verified 12/26/20 10:57 diphenhydramine AdvReac shuts off Verified 12/26/20 10:57 [From Benadryl] my urine Family History Mother Heart problem Brother Dialysis patient Surgical History H/O colectomy History of back surgery History of benign neoplasm of salivary gland History of cardiac catheterization (~05/08/17) History of cataract extraction History of coronary artery bypass graft History of open heart surgery History of umbilical hernia repair ICD (implantable cardioverter-defibrillator) in place Social History Smoking Status: Former smoker how long ago did patient quit smokin's alcohol intake: never substance use type: does not use well-balanced diet: other details: Fluid restrictions 48 ozs per day caffeine: Yes Type: coffee Number of servings: 1 ROS ROS Narrative All review of systems were negative except as mentioned above in the history of present illness and the other review of systems. Constitutional Constitutional: Denies change in weight or chills Cardiovascular Cardiovascular: Denies chest pain Respiratory/Chest Respiratory/Chest: Reports other Details: On oxygen. No worsening respiratory status. Gastrointestinal Gastrointestinal: Reports other Details: No bowel incontinence ; Denies abdominal pain Genitourinary Genitourinary: Denies urinary incontinence Vital Signs Vital Signs Vital Signs: 12/26/20 10:53 12/26/20 12:07 12/26/20 12:15 Temperature 36.3 C L 36.3 C L Temperature Source Temporal Temporal Pulse Rate 73 84 84 Respiratory Rate 17 20 H 20 H Blood Pressure 128/70 H 146/75 H 146/75 H Blood Pressure Mean 89 98 98 Pulse Ox 98 93 93 Oxygen Delivery Method Room Air Room Air Room Air 12/26/20 13:25 Temperature 37.0 C Temperature Source Oral Pulse Rate 73 Respiratory Rate 14 Blood Pressure 109/65 Blood Pressure Mean 79 Pulse Ox 97 Oxygen Delivery Method Room Air Weight Weight: 80.9 kg Body Mass Index (BMI) 29.7 Physical Exam Const alert, oriented x3 and no apparent distress HEENT normocephalic and moist oral mucous membranes Neck no lymphadenopathy Resp normal respiratory effort and clear to auscultation bilaterally Cardio regular rate, regular rhythm, S1 normal heart sound and S2 normal heart sound GI normal to inspection, nondistended, normoactive bowel sounds, non-tender and non-distended Extremity normal to inspection Skin no rashes or lesions noted and no wounds Neuro Neuro Narrative: Mild strength 5-5 in the lower extremities. Sensation grossly intact in the lower extremities. DTRs 2 out of 4 in the lower extremities. No clonus. Sensorium / Orientation: awake and alert Psych affect normal Results Medical Records Data Medical records narrative: CT of the lumbar spine showed interval development of radiolucent change along the endplates of L4-5. Suggestive of acute discitis. Lab / Micro Data Attestation: I reviewed the patient's lab results. Lab results narrative: Result Diagrams: 12/26/20 11:50 12/26/20 11:50 Labs: Laboratory Results - last 24 hr 12/26/20 12/26/20 12/26/20 11:50 11:50 11:50 WBC 6.8 RBC 4.03 L Hgb 13.2 Hct 41.9 MCV 104.0 H MCH 32.8 H MCHC 31.5 L RDW Std Deviation 49.3 H RDW Coeff of Daryl 12.9 Plt Count 160 MPV 10.9 Immature Gran % (Auto) 0.400 Neut % (Auto) 84.0 H Lymph % (Auto) 6.8 L [place] % (Auto) 8.7 Eos % (Auto) 0.0 Baso % (Auto) 0.1 Absolute Neuts (auto) 5.7 Absolute Lymphs (auto) 0.46 L Nucleated RBC % 0 Differential Comment COMMENT ESR 22 H PT 15.5 H INR 1.3 APTT 34.8 Sodium 141 Potassium 4.3 Chloride 101 Carbon Dioxide 39.0 H Anion Gap 1 L BUN 54 H Creatinine 1.59 H Estim Creat Clear Calc 29.55 Est GFR (MDRD) Af Amer 53 L Est GFR (MDRD) Non-Af 44 L BUN/Creatinine Ratio 34.0 H Glucose 141 H Lactic Acid Calcium 9.0 Total Bilirubin 0.60 AST 15 ALT 21 Alkaline Phosphatase 89 Total Protein 7.2 Albumin 3.1 L Globulin 4.1 Albumin/Globulin Ratio 0.8 L Urine Color Urine Clarity Urine pH Ur Specific [place] Urine Protein Urine Glucose (UA) Urine Ketones Urine Occult Blood Urine Nitrite Urine Bilirubin Urine Urobilinogen Ur Leukocyte Esterase Urine RBC Urine WBC Ur Squamous Epith Cells Urine Bacteria Urine Mucus 12/26/20 12/26/20 11:50 12:00 WBC RBC Hgb Hct MCV MCH MCHC RDW Std Deviation RDW Coeff of Daryl Plt Count MPV Immature Gran % (Auto) Neut % (Auto) Lymph % (Auto) [place] % (Auto) Eos % (Auto) Baso % (Auto) Absolute Neuts (auto) Absolute Lymphs (auto) Nucleated RBC % Differential Comment ESR PT INR APTT Sodium Potassium Chloride Carbon Dioxide Anion Gap BUN Creatinine Estim Creat Clear Calc Est GFR (MDRD) Af Amer Est GFR (MDRD) Non-Af BUN/Creatinine Ratio Glucose Lactic Acid 2.4 H* Calcium Total Bilirubin AST ALT Alkaline Phosphatase Total Protein Albumin Globulin Albumin/Globulin Ratio Urine Color Yellow Urine Clarity Clear Urine pH 5.0 Ur Specific [place] 1.015 Urine Protein Negative Urine Glucose (UA) Normal Urine Ketones Negative Urine Occult Blood Negative Urine Nitrite Negative Urine Bilirubin Negative Urine Urobilinogen Normal Ur Leukocyte Esterase Negative Urine RBC 0 SEEN Urine WBC 0 SEEN Ur Squamous Epith Cells 0 SEEN Urine Bacteria 0 SEEN Urine Mucus 0 SEEN Assessment & Plan Assessment/Plan (1) Discitis: QUALIFIERS: Spinal region: lumbar Qualified Code(s): M46.46 - Discitis, unspecified, lumbar region PLAN: 1. acute lumbar discitis * CAT scan notes that it is interval development radiolucent change along the endplates of L4-5. * Plan is to evaluate for primary source: That will include following up on the blood cultures already drawn in the emergency room, check a 2D echocardiogram * Antibiotics for now will be vancomycin and prednisone/tazobactam * Consultation to infectious disease for management particularly after discharge. Patient informed that with discitis the treatment can range from 6 to 8 weeks of IV antibiotics * Pain control will be oxycodone as well as low-dose hydromorphone IV for breakthrough pain. Patient will have his Lidoderm continued and acetaminophen will be increased to 1000 mg 3 times daily to minimize narcotic usage * Discussed with the patient that if he does develop neurologic issues related with discitis that he may require being transferred to a tertiary facility. Currently he has no subjective or objective data to suggest any neurologic compromise. I did inform him that if there is some cardiac involvement that may potentiate the need to remove his pacemaker 2. Chronic heart failure with reduced ejection fraction * EF 30% from 2D echocardiogram back in September. * Clinically compensated at this time * Continue with carvedilol, furosemide, sacubitril/valsartan 3. Chronic atrial fibrillation * Stable * Continue with anticoagulation with rivaroxaban as well as carvedilol. * If intervention is required, such as surgery for his back, pacer extraction or biopsy, patient will need to be off of rivaroxaban for 24 to 48 hours. 4. VTE prophylaxis: Not indicated this patient is anticoagulated on rivaroxaban 5. Advanced care planning: Spent an additional 60 minutes discussing with the patient about DNR, full CODE STATUS, cardiopulmonary resuscitation. He is unsure what he wants. I told him since he is unsure that we will leave him at full CODE STATUS. I did go in details that if in the event if he were to go into cardiac arrest the likelihood of him having any meaningful survival would be low. I encouraged him to speak it over further with family in the future. 6. Elevated lactic acid * Unclear significance * Patient is not septic * No additional work-up at this time. Charges/Coding Visit Charges Inpatient E&M: 49185 Init Hosp L3 Procedures Hospitalists Procedures: 66242 Advncd Care Plan 30 Min
--- NOTE | 2020-12-26 15:46 | ECHOD_ITS ---
Reason For Study: diskitis Procedure This was a 2D Doppler, Color Flow transthoracic echocardiogram. The study was technically difficult. Due to body habitus. Deferred Definity due to increased PAP. Exam performed portable in patient room. Left Ventricle Moderately dilated left ventricle. The estimated ejection fraction is EF 35-40 %. Right Ventricle Moderately dilated right ventricle. Atria The left atrium is mildly enlarged. The right atrium is moderately enlarged. Mitral Valve Stable apperaing Bioprothetic MV. Tricuspid Valve Normal tricuspid valve. Mild to moderate (1-2+) tricuspid valve insufficiency. Aortic Valve Normal aortic valve. Trivial eccentric aortic valve insufficiency. Pulmonic Valve The pulmonic valve is not well visualized. Great Vessels Mildly dilated aortic root. Pericardium/Pleural No pericardial effusion. MMode/2D Measurements & Calculations LVIDd: 5.4 cm IVSd: 1.2 cm Ao root diam: 3.9 cm LVIDs: 4.3 cm LVPWd: 1.2 cm RVDd: 4.2 cm FS: 20.2 % LAV(MOD-bp): 103.6 ml LA A4 area: 28.3 cm2 LA dimension(2D): 4.4 cm LAV(MOD-bp) Indexed: 55.4 ml/m2 LAV(MOD-sp2): 100.4 ml LAV(MOD-sp4): 100.2 ml RA A4 area: 32.0 cm2 Doppler Measurements & Calculations MV E max jasmeet: 193.2 cm/sec Lat Peak E' Jasmeet: 6.5 cm/sec Med Peak E' Jasmeet: 4.3 cm/sec E/E' lat: 29.9 E/E' med: 44.7 MV V2 max: 214.3 cm/sec Ao V2 max: 99.3 cm/sec LV V1 max: 74.3 cm/sec MV max P.4 mmHg Ao max P.0 mmHg LV V1 max P.2 mmHg MV V2 mean: 132.0 cm/sec MV mean P.0 mmHg MV V2 VTI: 52.3 cm PA V2 max: 78.3 cm/sec TR max jasmeet: 347.4 cm/sec TR max P.7 mmHg ECHO/Echo Complete Interpretation Summary The estimated ejection fraction is EF 35-40 %. afib with paced ventricular rhythm improving LLV systolc function,from prior echo Stable apperaing Bioprothetic MV. Ordering Physician: Anuj Mcfadden Referring Physician: Prabhu Vee Performed By: Eloisa Bui RDCS, RVT
[2020-12-26 16:00] LABS: Reflex Lactate? Y
--- NOTE | 2020-12-26 18:04 | PCM.RX.CS ---
Consult Pharmacy has been consulted to manage selected antiobiotic: Vancomycin Type of Consult: New start Suspected Infection: Other Prior Doses of Antibiotics Received/Current Regimen: Received 1250mg iv x 1 today in ER. Labs: Sodium 141 mmol/L (136-145) 12/26/20 11:50 Potassium 4.3 mmol/L (3.5-5.1) 12/26/20 11:50 Chloride 101 mmol/L (98-107) 12/26/20 11:50 Carbon Dioxide 39.0 mmol/L (21.0-32.0) H 12/26/20 11:50 Anion Gap 1 (5-15) L 12/26/20 11:50 BUN 54 mg/dL (7-18) H 12/26/20 11:50 Creatinine 1.59 mg/dL (0.70-1.30) H 12/26/20 11:50 Est GFR (MDRD) Af Amer 53 mL/min (>60) L 12/26/20 11:50 Est GFR (MDRD) Non-Af 44 mL/min (>60) L 12/26/20 11:50 BUN/Creatinine Ratio 34.0 RATIO (10-20) H 12/26/20 11:50 Glucose 141 mg/dL (74-106) H 12/26/20 11:50 Weight used for dosin.5 kg Estimated Creatinine Clearance: ~30ml/min Goal Trough: 15-20 mcg/mL Pharmacy Plan for Drug Dosing: Will begin 1000mg iv q24h per protocol starting 24hrs post 1250mg dose. Trough level ordered for ..21 before 3rd total dose. Pharmacy Service will continue to monitor and adjust dosing as required. Follow-Up Labs: Trough Vancomycin - 6.13.21 @1230 before 1300 dose
[2020-12-26] MEDS: oxyCODONE 5 MG Tablet 10 MG PO ×2 (18:29→22:42)
[2020-12-26] MEDS: Potassium Chloride Oral Tablet 10 MEQ PO (18:30)
[2020-12-26] MEDS: Furosemide 40 MG Tablet PO (18:30)
[2020-12-26] MEDS: Tamsulosin HCl 0.4 MG Capsule 0.8 MG PO (18:30)
[2020-12-26] MEDS: Polyethylene Glycol 3350 17 GM PACKET PO (18:38)
[2020-12-26] MEDS: cycloBENZAPRine HCl 10 MG Tablet PO (20:31)
[2020-12-26] MEDS: Senna/Docusate Sodium 1 Tablet 2 TABLET PO (22:10)
[2020-12-26] MEDS: Acetaminophen 500 MG Tablet 1000 MG PO (22:10)
[2020-12-26] MEDS: Carvedilol 12.5 MG Tablet PO (22:10)
[2020-12-26] MEDS: SACUBITRIL/VALSARTAN 97-103 MG TABLET 1 EACH PO (22:10)
--- NOTE | 2020-12-26 23:27 | NURSING ---
Pt believes that he left his glasses in the ER. He thought he was in room 10 or 11 in the ER. The pt stated his glasses are silver in color and they are bifocals (but you can't tell they are bifocals). Called down and talked to Elia who said the RN who took care of him down there said he was in room 17, and she did not remember him wearing glasses. They checked room 17 and also checked rooms 10 & 11 and found no glasses. Security did not have any with silver frames. I also called TCU to make sure they were not left there, and they did not find them either.
[2020-12-27 03:08] VITALS: BP 137/86; PULSE 71; RESP 18; TEMP 36.6; O2SAT 100
[2020-12-27] MEDS: Acetaminophen 500 MG Tablet 1000 MG PO ×3 (06:04→22:10)
[2020-12-27 07:26] LABS: Absolute Lymphocyte Count 0.55 X10^3/uL (0.83-4.51); Absolute Neutrophil Count 4.2 X10^3/uL (2.0-7.7); Basophil# 0.03 X10^3/uL; Basophil% 0.6 % (0-1); Eosinophil# 0.08 X10^3/uL; Eosinophils% 1.5 % (0-5); Hematocrit 39.1 % (40-54); Hemoglobin 12.6 g/dL (13.0-16.5); Lymphocyte # 0.55 X10^3/ul (0.83-4.51); Lymphocyte % 10.1 % (19-41); Mean Corp Hgb Conc 32.2 g/dL (32-36); Mean Corpuscular Hgb 33.9 pg (27.0-32.0); Mean Corpuscular Volume 105.1 fL (80-94); Monocyte# 0.57 X10^3/uL; Monocyte% 10.5 % (0-10); NRBC Flagged by Analyzer 0 % (0-5); Neutrophil # 4.18 X10^3/uL (2.7-7.7); Neutrophil % 76.6 % (47-70); POSITIVE DIFFERENTIAL YES; Platelet Count 142 K/mm3 (150-450); RBC Distribution Width CV 12.8 % (11.6-14.6); RBC Distribution Width SD 49.9 fl (35.1-43.9); Red Blood Count 3.72 M/mm3 (4.6-6.2); White Blood Count 5.5 K/mm3 (4.4-11.0)
[2020-12-27 07:28] LABS: Differential Indicated SCAN CRITERIA MET
[2020-12-27 07:47] LABS: ALB/GLOB Ratio 0.8 RATIO (0.9-2.4); AST(SGOT) 15 U/L (15-37); Alanine Aminotransfer ALT/SGPT 19 U/L (16-61); Albumin, Serum 2.8 g/dL (3.2-5.0); Alkaline Phosphatase 77 U/L (45-117); Anion Gap 1 (5-15); BUN 48 mg/dL (7-18); BUN/Creat Ratio 33.1 RATIO (10-20); Calcium,Total 8.6 mg/dL (8.5-10.1); Chloride 103 mmol/L (98-107); Creatinine, Serum 1.45 mg/dL (0.70-1.30); EST Glomerular Filtration Rate 49 mL/min (>60); Est Glom Filt Rate - Afr Amer 59 mL/min (>60); Globulin 3.7 g/dL (2.2-4.2); Glucose 119 mg/dL (74-106); Potassium 4.1 mmol/L (3.5-5.1); Protein, Total 6.5 g/dL (6.4-8.2); Sodium Level 142 mmol/L (136-145)
[2020-12-27 09:15] VITALS: BP 157/96; PULSE 73; RESP 16; TEMP 36.4; O2SAT 98
[2020-12-27] MEDS: Senna/Docusate Sodium 1 Tablet 2 TABLET PO ×2 (10:07→22:10)
[2020-12-27] MEDS: Multivitamins,Ther W-Minerals Tablet 1 TABLET PO (10:07)
[2020-12-27] MEDS: Citalopram 10 MG Tablet PO (10:08)
[2020-12-27] MEDS: Tamsulosin HCl 0.4 MG Capsule 0.8 MG PO ×2 (10:08→17:26)
[2020-12-27] MEDS: Carvedilol 12.5 MG Tablet PO ×2 (10:09→22:09)
[2020-12-27] MEDS: Furosemide 40 MG Tablet PO ×2 (10:09→17:26)
[2020-12-27] MEDS: Potassium Chloride Oral Tablet 10 MEQ PO ×2 (10:09→17:27)
[2020-12-27] MEDS: SACUBITRIL/VALSARTAN 97-103 MG TABLET 1 EACH PO ×2 (10:09→22:10)
[2020-12-27] MEDS: Cholecalciferol (VIT D3) 25 MCG TABLET (1,000 UNITS) PO (10:10)
[2020-12-27] MEDS: Finasteride 5 MG Tablet PO (10:10)
[2020-12-27] MEDS: Rivaroxaban 15 MG Tablet PO (10:10)
[2020-12-27] MEDS: Polyethylene Glycol 3350 17 GM PACKET PO (10:11)
[2020-12-27] MEDS: Lidocaine 5% Patch 2 PATCH TOPICAL (10:11)
[2020-12-27] MEDS: oxyCODONE 5 MG Tablet 10 MG PO ×3 (10:15→22:34)
[2020-12-27] MEDS: HYDROmorphone 0.5 MG/0.5 ML SYRINGE IV ×2 (12:33→17:25)
[2020-12-27] MEDS: Vancomycin IV 1,000 MG/200 ML BAG 200 MG IV (13:54)
[2020-12-27] MEDS: 0.9% Saline Lock 10 ML Syringe IV ×2 (13:54→22:11)
[2020-12-27] MEDS: cycloBENZAPRine HCl 10 MG Tablet PO ×2 (13:57→22:30)
--- NOTE | 2020-12-27 13:59 | PN.HOSP_ITS ---
Documented by User: Richmond BRONWE 12/27/20 14:13 Subjective Subjective Patient is an 85-year-old male comfortably resting in bed, alert and orient x3. Patient reports no change or progression of symptoms from admission. Patient requests this provider to contact son and update him on patient status. Denies chest pain, shortness of breath, palpitations, numbness/tingling, extremity weakness, fever, chills, N/V/D. Objective Data Objective Data Vital Signs: Vital Signs Temp Pulse Resp BP Pulse Ox 97.5 F L 73 16 157/96 H 98 12/27/20 09:15 12/27/20 09:15 12/27/20 09:15 12/27/20 09:15 12/27/20 09:15 Oxygen Flow Rate (L/min) 2 Oxygen Delivery Method Room Air Weight: 175 lb 3.2 oz Body Mass Index (BMI) 29.1 Intake & Output: Intake and Output for Last 24 Hours 12/25/20 12/26/20 12/27/20 23:59 23:59 23:59 Intake Total 1810.0 / 2010.0 725 / 725 Output Total 225 / 625 1200 / 1200 Balance 1585.0 / 1385.0 -475 / -475 Lab / Micro Data Result Diagrams: 12/27/20 06:50 12/27/20 06:50 Labs: Laboratory Results - last 24 hr 12/26/20 12/27/20 12/27/20 16:17 06:50 06:50 WBC 5.5 RBC 3.72 L Hgb 12.6 L Hct 39.1 L MCV 105.1 H MCH 33.9 H MCHC 32.2 RDW Std Deviation 49.9 H RDW Coeff of Daryl 12.8 Plt Count 142 L MPV 10.0 Immature Gran % (Auto) 0.700 Neut % (Auto) 76.6 H Lymph % (Auto) 10.1 L [place] % (Auto) 10.5 H Eos % (Auto) 1.5 Baso % (Auto) 0.6 Absolute Neuts (auto) 4.2 Absolute Lymphs (auto) 0.55 L Nucleated RBC % 0 Sodium 142 Potassium 4.1 Chloride 103 Carbon Dioxide 38.0 H Anion Gap 1 L BUN 48 H Creatinine 1.45 H Estim Creat Clear Calc 32.40 Est GFR (MDRD) Af Amer 59 L Est GFR (MDRD) Non-Af 49 L BUN/Creatinine Ratio 33.1 H Glucose 119 H Lactic Acid 1.0 Calcium 8.6 Total Bilirubin 0.70 AST 15 ALT 19 Alkaline Phosphatase 77 Total Protein 6.5 Albumin 2.8 L Globulin 3.7 Albumin/Globulin Ratio 0.8 L Micro: Microbiology 12/26/20 11:55 Blood Culture (Wb) - Anticubital Left Blood Culture - Preliminary 12/26/20 11:50 Blood Culture (Wb) - Right Hand Blood Culture - Preliminary Physical Exam Narrative See subjective. Const alert, oriented x3 and no apparent distress HEENT head/scalp atraumatic and moist oral mucous membranes Head and Scalp: normocephalic Eyes PERRL, EOMs intact bilaterally and conjunctivae normal Neck no lymphadenopathy, supple and no JVD Resp normal respiratory effort, no retractions, no use of accessory muscles and clear to auscultation bilaterally Cardio regular rate, regular rhythm, no murmurs and no JVD GI normal to inspection, nondistended, normoactive bowel sounds, soft to palpation and non-tender Extremity normal to inspection, full ROM and no clubbing, cyanosis or edema Skin no rashes or lesions noted, no wounds and skin turgor normal Neuro CN's II-XII intact bilaterally Psych affect normal Assessment & Plan Assessment/Plan (1) Discitis: QUALIFIERS: Spinal region: lumbar Qualified Code(s): M46.46 - Discitis, unspecified, lumbar region (2) Chronic systolic congestive heart failure: (3) Atrial fibrillation: (4) Intractable low back pain: (5) Debility: PLAN: Spoke to patient son on the phone, Greg. Leslie is patient's healthcare POA and would like to be consulted in the event that patient cannot make decisions for himself. 1) acute lumbar discitis CT of the lumbar spine demonstrates radiolucent change along the endplates at L4-L5 suggestive of acute discitis. Patient reports and demonstrates no focal neuro deficits. Vital signs stable and patient is afebrile. No leukocytosis evident on CBC. Surgical intervention complicated by presence of pacemaker. Plan; continue vancomycin and cefepime, Zosyn discontinued, ID consult ordered, 2D echo ordered to assess for cardiac involvement, will need transfer to tertiary facility if surgery is indicated. 2) systolic CHF with reduced ejection fraction next Echocardiogram 10/10/2020 demonstrates normal LV size, an estimated EF of 30%, mo derately enlarged right atrium, a moderately enlarged left atrium, stable appearing bioprosthetic mitral valve. Home medication regimen includes carvedilol, furosemide and Entresto. Plan; continue home CHF regimen. 3) chronic atrial fibrillation Stable. Rate controlled with carvedilol and patient is anticoagulated on Xarelto. Will discontinue Xarelto if surgery is needed. 4) elevated lactatic acid Elevated lactate resolved, currently 1.0. Unclear etiology. Plan; continue to monitor BMP. DVT prophylaxis -Xarelto Patient seen by Richmond Weaver PA-C, under the supervision of Dr. Dolan. Documented by User: Dr. Jose Dolan MD 12/27/20 15:28 Objective Data Lab / Micro Data Result Diagrams: 12/27/20 06:50 12/27/20 06:50 Charges/Coding Addendum Addendum: Dr. Dolan: I personally reviewed the chart and examined the patient, and agree with the heidi morales findings. 85-year-old male presenting from TCU with back pain. The back pain is going on for the past couple months and he had an injection a few days ago and since then has noticed slight worsening in his back pain. He has no lower extremity weakness or paresthesias however he was found to have a discitis on admission between L4 and L5. Blood cultures also coming back positive with gram-positive cocci in clusters. 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 Echo was unremarkable however this is just a transthoracic echo therefore if he does have staph growing in his blood may need to proceed with a TYRA. Currently he is afebrile without a leukocytosis therefore we will continue to monitor and repeat blood cultures today. Visit Charges Inpatient E&M: 21983 Subs Hosp L2
[2020-12-27 14:45] VITALS: BP 119/70; PULSE 76; RESP 18; TEMP 36.8; O2SAT 99
--- NOTE | 2020-12-27 16:48 | CASEMGMT ---
BETY Note: Referral Source: Director Of Science Referral Reason: From Transitional Care Unit (TCU) BETY met with patient. He voices he knows he needs rehab prior to going home. He voices he is still in pain. He voices he lives alone and knows he needs rehab prior to discharge. Patient is in agreement with returning to the TCU at discharge. Johnna BURTON updated via email. Plan: Return to TCU. Maryann SUBRAMANIAN
[2020-12-27 22:06] VITALS: BP 112/66; PULSE 73; RESP 16; TEMP 37.1; O2SAT 99
[2020-12-27 22:20] VITALS: RESP 16
[2020-12-28] MEDS: HYDROmorphone 0.5 MG/0.5 ML SYRINGE IV ×2 (01:54→08:47)
[2020-12-28] MEDS: 0.9% Saline Lock 10 ML Syringe IV ×3 (01:54→23:13)
[2020-12-28 01:58] VITALS: BP 142/79; PULSE 83; RESP 18; TEMP 36.6; O2SAT 97
[2020-12-28 05:40] VITALS: BP 154/90; PULSE 74; RESP 20; TEMP 36.6; O2SAT 98
[2020-12-28] MEDS: cycloBENZAPRine HCl 10 MG Tablet PO ×3 (05:44→23:22)
[2020-12-28] MEDS: Acetaminophen 500 MG Tablet 1000 MG PO ×3 (05:44→23:13)
[2020-12-28] MEDS: oxyCODONE 5 MG Tablet 10 MG PO ×3 (05:47→23:22)
[2020-12-28 05:50] LABS: Absolute Lymphocyte Count 0.77 X10^3/uL (0.83-4.51); Absolute Neutrophil Count 4.5 X10^3/uL (2.0-7.7); Basophil# 0.05 X10^3/uL; Basophil% 0.8 % (0-1); Eosinophil# 0.12 X10^3/uL; Hematocrit 37.9 % (40-54); Hemoglobin 12.1 g/dL (13.0-16.5); Lymphocyte # 0.77 X10^3/ul (0.83-4.51); Lymphocyte % 12.7 % (19-41); Mean Corp Hgb Conc 31.9 g/dL (32-36); Mean Corpuscular Hgb 33.2 pg (27.0-32.0); Mean Corpuscular Volume 104.1 fL (80-94); Monocyte# 0.61 X10^3/uL; Monocyte% 10.1 % (0-10); NRBC Flagged by Analyzer 0 % (0-5); Neutrophil # 4.47 X10^3/uL (2.7-7.7); Neutrophil % 73.9 % (47-70); Platelet Count 130 K/mm3 (150-450); RBC Distribution Width CV 12.6 % (11.6-14.6); RBC Distribution Width SD 49.1 fl (35.1-43.9); Red Blood Count 3.64 M/mm3 (4.6-6.2); White Blood Count 6.1 K/mm3 (4.4-11.0)
[2020-12-28 06:04] LABS: Anion Gap 5 (5-15); BUN 43 mg/dL (7-18); BUN/Creat Ratio 31.6 RATIO (10-20); Calcium,Total 8.3 mg/dL (8.5-10.1); Chloride 103 mmol/L (98-107); Creatinine, Serum 1.36 mg/dL (0.70-1.30); EST Glomerular Filtration Rate 53 mL/min (>60); Est Glom Filt Rate - Afr Amer 64 mL/min (>60); Estimated Creatinine Clearance 34.54 ml/min; Glucose 117 mg/dL (74-106); Potassium 3.9 mmol/L (3.5-5.1); Sodium Level 141 mmol/L (136-145)
[2020-12-28 08:31] VITALS: BP 152/82; PULSE 73; RESP 18; TEMP 36.6; O2SAT 95
[2020-12-28] MEDS: Potassium Chloride Oral Tablet 10 MEQ PO ×2 (08:50→18:06)
[2020-12-28] MEDS: Senna/Docusate Sodium 1 Tablet 2 TABLET PO (08:51)
[2020-12-28] MEDS: Finasteride 5 MG Tablet PO (08:52)
[2020-12-28] MEDS: Polyethylene Glycol 3350 17 GM PACKET PO (08:52)
[2020-12-28] MEDS: Lidocaine 5% Patch 2 PATCH TOPICAL (08:52)
[2020-12-28] MEDS: Furosemide 40 MG Tablet PO ×2 (08:53→18:06)
[2020-12-28] MEDS: SACUBITRIL/VALSARTAN 97-103 MG TABLET 1 EACH PO ×2 (08:53→23:12)
[2020-12-28] MEDS: Carvedilol 12.5 MG Tablet PO ×2 (08:54→23:13)
[2020-12-28] MEDS: Multivitamins,Ther W-Minerals Tablet 1 TABLET PO (08:54)
[2020-12-28] MEDS: Tamsulosin HCl 0.4 MG Capsule 0.8 MG PO ×2 (08:54→18:06)
[2020-12-28] MEDS: Rivaroxaban 15 MG Tablet PO (08:54)
[2020-12-28] MEDS: Citalopram 10 MG Tablet PO (08:54)
[2020-12-28] MEDS: Cholecalciferol (VIT D3) 25 MCG TABLET (1,000 UNITS) PO (08:55)
--- NOTE | 2020-12-28 10:22 | PCM.PN.HOSP ---
Documented by User: Richmond BROWNE 12/28/20 10:30 Subjective Subjective Patient is an 85-year-old female comfortably resting in chair and eating breakfast, alert and orient x3. Patient only reports mild back pain, which he reports is controlled on his current pain regimen. Son was in the room and discussed course with him and patient. Patient and son acknowledge understanding are agreeable to all. Denies chest pain, shortness of breath, palpitations, hemoptysis, sputum production, fever, chills, N/V/D. Objective Data Objective Data Vital Signs: Vital Signs Temp Pulse Resp BP Pulse Ox 97.8 F 73 18 152/82 H 95 12/28/20 08:31 12/28/20 08:31 12/28/20 08:31 12/28/20 08:31 12/28/20 08:31 Oxygen Flow Rate (L/min) 2 Oxygen Delivery Method Nasal Cannula Weight: 175 lb 3.2 oz Body Mass Index (BMI) 29.1 Intake & Output: Intake and Output for Last 24 Hours 12/26/20 12/27/20 12/28/20 23:59 23:59 23:59 Intake Total 1810.0 / 2010.0 1275 / 1375 300 / 300 Output Total 225 / 625 1500 / 1500 600 / 600 Balance 1585.0 / 1385.0 -225 / -125 -300 / -300 Lab / Micro Data Result Diagrams: 12/28/20 05:29 12/28/20 05:29 Labs: Laboratory Results - last 24 hr 12/28/20 12/28/20 05:29 05:29 WBC 6.1 RBC 3.64 L Hgb 12.1 L Hct 37.9 L MCV 104.1 H MCH 33.2 H MCHC 31.9 L RDW Std Deviation 49.1 H RDW Coeff of Daryl 12.6 Plt Count 130 L MPV 11.0 Immature Gran % (Auto) 0.500 Neut % (Auto) 73.9 H Lymph % (Auto) 12.7 L [place] % (Auto) 10.1 H Eos % (Auto) 2.0 Baso % (Auto) 0.8 Absolute Neuts (auto) 4.5 Absolute Lymphs (auto) 0.77 L Nucleated RBC % 0 Sodium 141 Potassium 3.9 Chloride 103 Carbon Dioxide 33.0 H Anion Gap 5 BUN 43 H Creatinine 1.36 H Estim Creat Clear Calc 34.54 Est GFR (MDRD) Af Amer 64 Est GFR (MDRD) Non-Af 53 L BUN/Creatinine Ratio 31.6 H Glucose 117 H Calcium 8.3 L Micro: Microbiology 12/26/20 11:55 Blood Culture (Wb) - Anticubital Left Bacteria Detection (PCR) - Final Coag Negative Staph 12/26/20 11:55 Blood Culture (Wb) - Anticubital Left Blood Culture - Preliminary 12/26/20 11:50 Blood Culture (Wb) - Right Hand Blood Culture - Preliminary Coag Negative Staph Radiography Diagnostic Testing: Radiology Impression Echocardiogram 12/26/20 15:46 Interpretation Summary The estimated ejection fraction is EF 35-40 %. afib with paced ventricular rhythm improving LLV systolc function,from prior echo Stable apperaing Bioprothetic MV. Ordering Physician: Anuj Mcfadden Referring Physician: Prabhu Vee Performed By: Eloisa Bui, CAYLACS, RVT Physical Exam Narrative See subjective Const alert, oriented x3 and no apparent distress HEENT head/scalp atraumatic and moist oral mucous membranes Head and Scalp: normocephalic Eyes PERRL, EOMs intact bilaterally and conjunctivae normal Neck no lymphadenopathy, supple and no JVD Resp normal respiratory effort, no retractions, no use of accessory muscles and clear to auscultation bilaterally Cardio regular rate, regular rhythm, no murmurs and no JVD GI normal to inspection, nondistended, normoactive bowel sounds, soft to palpation and non-tender Extremity normal to inspection, full ROM and no clubbing, cyanosis or edema Skin no rashes or lesions noted, no wounds and skin turgor normal Neuro CN's II-XII intact bilaterally Psych affect normal Assessment & Plan Assessment/Plan (1) Intractable back pain: (2) Discitis: QUALIFIERS: Spinal region: lumbar Qualified Code(s): M46.46 - Discitis, unspecified, lumbar region (3) Paroxysmal atrial fibrillation: (4) Debility: PLAN: See subjective for patient presentation. 1) acute lumbar discitis Preliminary blood cultures grew coagulase-negative staph, additional blood cultures pending. CT of the lumbar spine demonstrates radiolucent change along the endplates at L4-L5 suggestive of acute discitis. Patient reports and demonstrates no focal neuro deficits. Vital signs stable and patient is afebrile. No leukocytosis evident on CBC. Surgical intervention complicated by presence of pacemaker. Plan; continue vancomycin and cefepime, ID consult ordered, will need transfer to tertiary facility if surgery is indicated. 2) Systolic CHF with reduced ejection fraction next New echocardiogram completed on demonstrates an estimated EF of 35 to 40%, A. fib with paced ventricular rhythm and stable appearing bioprosthetic mitral valve. Interpreting physician notes that left ventricular systolic function has improved from prior echocardiogram. Home medication regimen includes carvedilol, furosemide and Entresto. Plan; continue home CHF regimen. 3) chronic atrial fibrillation Stable. Rate controlled with carvedilol and patient is anticoagulated on Xarelto. Will discontinue Xarelto if surgery is needed. 4) elevated lactatic acid Elevated lactate resolved, currently 1.0. Unclear etiology. Plan; continue to monitor BMP. 5) WILTON Mildly elevated creatinine at 1.36, trending down from admission. Plan; continue to monitor BMP. DVT prophylaxis - Xarelto Patient seen by Richmond Weaver PA-C, under the supervision of Dr. Dolan. Documented by User: Dr. Jose Dolan MD 12/28/20 12:43 Objective Data Lab / Micro Data Result Diagrams: 12/28/20 05:29 12/28/20 05:29 Charges/Coding Addendum Addendum: Dr. Dolan: I personally reviewed the chart and examined the patient, and agree with the above findings. 85-year-old male presenting from TCU with back pain. The back pain is going on for the past couple months and he had an injection a few days ago and since then has noticed slight worsening in his back pain. He has no lower extremity weakness or paresthesias however he was found to have a discitis on admission between L4 and L5. Blood cultures also coming back positive with gram-positive cocci in clusters. 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 Echo was unremarkable however this is just a transthoracic echo therefore if he does have staph growing in his blood may need to proceed with a TYRA. Currently he is afebrile without a leukocytosis therefore we will continue to monitor and repeat blood cultures today. 12/28/2020: Still some back pain today, but no fevers or chills. Continuing with his vancomycin and cefepime, initial blood cultures were obtained on admission which are showing coag negative staph, still awaiting sensitivities and blood cultures were obtained both yesterday and today. Depending on how quickly his cultures clear may determine the need for TYRA and possible removal of pacemaker. ID is consulted and will see him tomorrow. Visit Charges Inpatient E&M: 05007 Subs Hosp L2
[2020-12-28 13:28] LABS: Vancomycin, Trough Level 14.8 ug/mL (5.0-15.0)
[2020-12-28] MEDS: Vancomycin IV 1,000 MG/200 ML BAG 200 MG IV (13:37)
[2020-12-28 13:39] VITALS: BP 98/52; PULSE 76; RESP 18; TEMP 36.4; O2SAT 98
--- NOTE | 2020-12-28 13:40 | PCM.RX.CS ---
Consult Pharmacy has been consulted to manage selected antiobiotic: Vancomycin Type of Consult: New start Suspected Infection: Other - DISCITIS Labs: Sodium 141 mmol/L (136-145) 12/28/20 05:29 Potassium 3.9 mmol/L (3.5-5.1) 12/28/20 05:29 Chloride 103 mmol/L (98-107) 12/28/20 05:29 Carbon Dioxide 33.0 mmol/L (21.0-32.0) H 12/28/20 05:29 Anion Gap 5 (5-15) 12/28/20 05:29 BUN 43 mg/dL (7-18) H 12/28/20 05:29 Creatinine 1.36 mg/dL (0.70-1.30) H 12/28/20 05:29 Est GFR (MDRD) Af Amer 64 mL/min (>60) 12/28/20 05:29 Est GFR (MDRD) Non-Af 53 mL/min (>60) L 12/28/20 05:29 BUN/Creatinine Ratio 31.6 RATIO (10-20) H 12/28/20 05:29 Glucose 117 mg/dL (74-106) H 12/28/20 05:29 Vancomycin Trough 14.8 ug/mL (5.0-15.0) 12/28/20 12:40 Microbiology: Microbiology 12/26/20 11:55 Blood Culture (Wb) - Anticubital Left Bacteria Detection (PCR) - Final Coag Negative Staph 12/26/20 11:55 Blood Culture (Wb) - Anticubital Left Blood Culture - Preliminary 12/26/20 11:50 Blood Culture (Wb) - Right Hand Blood Culture - Preliminary Coag Negative Staph Goal Trough: 15-20 mcg/mL Pharmacy Plan for Drug Dosing: VANCOMYCIN LEVEL RECEIVED Current Vancomycin Dose: 1000MG Q24H Number of Doses Received: 1250MG X1, 1000MG X1 Vancomycin Level: 14.8 MG/DL Hours Since Last Dose: 11 Renal Function: SCR 1.36, CRCL 34.5ML/MIN Renal Function Trend: IMPROVING Lab/Micro: CoNS, 2/2 BCX Vancomycin Plan/Comments: TROUGH IS VERY CLOSE TO BEING IN RANGE. WILL GET ANOTHER TROUGH TOMORROW SINCE PATIENT HAS ONLY HAD 2 DOSES AND LEVEL IS ALMOST IN THERAPEUTIC RANGE. Pending Level: 12/29/20 @ 1230 Pharmacy Service will continue to monitor and adjust dosing as required.
[2020-12-28 22:00] VITALS: RESP 18
[2020-12-28 23:08] VITALS: BP 135/80; PULSE 81; RESP 18; TEMP 36.7; O2SAT 98
[2020-12-28] MEDS: Glycerin/Hypromellose/PEG400 15 ml Bottle 2 DRP EACH EYE (23:24)
[2020-12-29 05:00] VITALS: BP 117/73; PULSE 84; RESP 18; TEMP 36.9; O2SAT 98
[2020-12-29] MEDS: 0.9% Saline Lock 10 ML Syringe IV ×6 (05:19→16:42)
[2020-12-29] MEDS: Acetaminophen 500 MG Tablet 1000 MG PO ×3 (05:19→21:39)
[2020-12-29 05:29] LABS: Absolute Lymphocyte Count 0.66 X10^3/uL (0.83-4.51); Absolute Neutrophil Count 3.1 X10^3/uL (2.0-7.7); Basophil# 0.03 X10^3/uL; Basophil% 0.7 % (0-1); Eosinophil# 0.09 X10^3/uL; Eosinophils% 2.1 % (0-5); Hematocrit 34.8 % (40-54); Hemoglobin 11.2 g/dL (13.0-16.5); Lymphocyte # 0.66 X10^3/ul (0.83-4.51); Lymphocyte % 15.1 % (19-41); Mean Corp Hgb Conc 32.2 g/dL (32-36); Mean Corpuscular Hgb 33.3 pg (27.0-32.0); Mean Corpuscular Volume 103.6 fL (80-94); Mean Platelet Vol. 10.4 fl (6.2-12.0); Monocyte# 0.51 X10^3/uL; Monocyte% 11.6 % (0-10); NRBC Flagged by Analyzer 0 % (0-5); Neutrophil # 3.07 X10^3/uL (2.7-7.7); Platelet Count 116 K/mm3 (150-450); RBC Distribution Width CV 12.8 % (11.6-14.6); RBC Distribution Width SD 48.4 fl (35.1-43.9); Red Blood Count 3.36 M/mm3 (4.6-6.2); White Blood Count 4.4 K/mm3 (4.4-11.0)
[2020-12-29 05:51] LABS: Anion Gap 4 (5-15); BUN 50 mg/dL (7-18); BUN/Creat Ratio 35.2 RATIO (10-20); Calcium,Total 8.3 mg/dL (8.5-10.1); Chloride 106 mmol/L (98-107); Creatinine, Serum 1.42 mg/dL (0.70-1.30); EST Glomerular Filtration Rate 50 mL/min (>60); Est Glom Filt Rate - Afr Amer 61 mL/min (>60); Estimated Creatinine Clearance 33.08 ml/min; Glucose 121 mg/dL (74-106); Sodium Level 143 mmol/L (136-145)
--- NOTE | 2020-12-29 07:50 | PN.HOSP_ITS ---
Subjective Subjective Patient is an 85-year-old gentleman with history of degenerative joint disease with previous epidural injection by pain management as outpatient with multiple visits to the ED with intractable back pain who presented back on 12/26/[address] obtained this time demonstrated Interval development of radiolucent change along the endplates at L4-5suggestive of acute discitis. Blood cultures grew coagulase staph negative which turned out to be staph epi. Patient placed on broad-spectrum antibiotic therapy with consultation placed to ID Objective Data Objective Data Vital Signs: Vital Signs Temp Pulse Resp BP Pulse Ox 98.4 F 84 18 117/73 98 12/29/20 05:00 12/29/20 05:00 12/29/20 05:00 12/29/20 05:00 12/29/20 05:00 Oxygen Flow Rate (L/min) 2 Oxygen Delivery Method Nasal Cannula Weight: 79.469 kg Body Mass Index (BMI) 29.1 Intake & Output: Intake and Output for Last 24 Hours 12/27/20 12/28/20 12/29/20 23:59 23:59 23:59 Intake Total 1275 / 1375 1230 / 1230 100 / 100 Output Total 1500 / 1500 1400 / 1400 350 / 350 Balance -225 / -125 -170 / -170 -250 / -250 Lab / Micro Data Result Diagrams: 12/29/20 05:14 12/29/20 05:14 Labs: Laboratory Results - last 24 hr 12/28/20 12/29/20 12/29/20 12:40 05:14 05:14 WBC 4.4 RBC 3.36 L Hgb 11.2 L Hct 34.8 L MCV 103.6 H MCH 33.3 H MCHC 32.2 RDW Std Deviation 48.4 H RDW Coeff of Daryl 12.8 Plt Count 116 L MPV 10.4 Immature Gran % (Auto) 0.500 Neut % (Auto) 70.0 Lymph % (Auto) 15.1 L [place] % (Auto) 11.6 H Eos % (Auto) 2.1 Baso % (Auto) 0.7 Absolute Neuts (auto) 3.1 Absolute Lymphs (auto) 0.66 L Nucleated RBC % 0 Sodium 143 Potassium 4.0 Chloride 106 Carbon Dioxide 33.0 H Anion Gap 4 L BUN 50 H Creatinine 1.42 H Estim Creat Clear Calc 33.08 Est GFR (MDRD) Af Amer 61 Est GFR (MDRD) Non-Af 50 L BUN/Creatinine Ratio 35.2 H Glucose 121 H Calcium 8.3 L Vancomycin Trough 14.8 Micro: Microbiology 12/26/20 11:50 Blood Culture (Wb) - Right Hand Blood Culture - Preliminary Coag Negative Staph 12/27/20 12:24 Blood Culture (Wb) - Anticubital Right Bacteria Detection (PCR) - Preliminary Staphylococcus epidermidis 12/27/20 12:24 Blood Culture (Wb) - Anticubital Right Blood Culture - Preliminary 12/26/20 11:55 Blood Culture (Wb) - Anticubital Left Bacteria Detection (PCR) - Final Coag Negative Staph 12/26/20 11:55 Blood Culture (Wb) - Anticubital Left Blood Culture - Preliminary Physical Exam Narrative GENERAL: cooperative HEENT: Atraumatic; EYES; Anicteric, Normal Conjunctiva NECK; supple, normal thyroid, RESPIRATORY: Diminished to auscultation CARDIOVASCULAR: Regular S1 S2, GI: soft, normoactive bowel sounds, : No Renal angle tenderness; EXTREMITIES: No edema, no clubbing, MUSCULOSKELETAL: no muscle waisting NEURO: Awake; no lateralizing signs. SKIN: No Rash PSYCH; Flat affect Assessment & Plan Assessment/Plan (1) Discitis: QUALIFIERS: Spinal region: lumbar Qualified Code(s): M46.46 - Discitis, unspecified, lumbar region PLAN: Patient is an 85-year-old gentleman with history of degenerative joint disease with previous epidural injection by pain management as outpatient with multiple visits to the ED with intractable back pain who presented back on 12/26/[address] obtained this time demonstrated Interval development of radiolucent change along the endplates at L4-5suggestive of acute discitis. Blood cultures grew coagulase staph negative which turned out to be staph epi. Patient placed on broad-spectrum antibiotic therapy with consultation placed to ID 1. Acute intractable low back pain ?Secondary to acute discitis. Patient started on broad-spectrum antibiotic therapy with vancomycin and Zosyn. Blood cultures obtained came back positive for coagulase-negative staph?staph epi ??possibly contaminant. Consult placed to ID 2. 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 Ischemic cardiomyopathy ?Status post AICD placement 5. Chronic hypoxic respiratory failure ?Patient is on baseline home oxygen 6. Chronic kidney disease stage IIIb ?Kidney function at baseline 7. Chronic A. fib/flutter ?Heart rate controlled on Coreg. Also on systemic anticoagulation with Xarelto 8. Hypertension - Blood pressure controlled, home medications continued with dose adjustment as needed 9. Coronary artery disease ?With previous CABG 10. BPH ?Patient is on both Flomax and Proscar discontinued 11. DVT prophylaxis on Xarelto Charges/Coding Visit Charges Inpatient E&M: 71599 Subs Hosp L2
[2020-12-29 08:06] VITALS: O2SAT 96
[2020-12-29] MEDS: Lidocaine 5% Patch 2 PATCH TOPICAL (08:49)
[2020-12-29] MEDS: Potassium Chloride Oral Tablet 10 MEQ PO ×2 (08:49→16:54)
[2020-12-29] MEDS: Citalopram 10 MG Tablet PO (08:49)
[2020-12-29] MEDS: Multivitamins,Ther W-Minerals Tablet 1 TABLET PO (08:49)
[2020-12-29] MEDS: Furosemide 40 MG Tablet PO ×2 (08:49→16:54)
[2020-12-29] MEDS: oxyCODONE 5 MG Tablet 10 MG PO ×3 (08:49→20:05)
[2020-12-29] MEDS: Rivaroxaban 15 MG Tablet PO (08:49)
[2020-12-29] MEDS: Tamsulosin HCl 0.4 MG Capsule 0.8 MG PO ×2 (08:49→16:54)
[2020-12-29] MEDS: Finasteride 5 MG Tablet PO (08:50)
[2020-12-29] MEDS: Cholecalciferol (VIT D3) 25 MCG TABLET (1,000 UNITS) PO (08:51)
[2020-12-29 08:55] VITALS: BP 152/85; PULSE 74; RESP 18; TEMP 36.3; O2SAT 100
--- NOTE | 2020-12-29 09:43 | CASEMGMT ---
JOSEPHINE TORRES chart review: Patient was admitted 12/07-12/08 obs for lumbago and discharged home, patient denied services. Patient returned 12/15-12/16 for intractable back pain and was discharged to TCU for additional therapy. See SW assessment from 12/16/20. Patient was readmitted from TCU on 12/26/20. Patient had CAT of thorasic/lumbar spine with concern for diskitis. Patient states that a few day prior to scan patient had back injection with Dr. Luo. ID is consulted. Per SW note, plan is for patient to return to TCU when medically ready. Disposition plan: TCU when medically ready.
--- NOTE | 2020-12-29 09:48 | CASEMGMT ---
BETY confirmed with Johnna in TCU that pt can return when ready, no precert needed in order for pt to return. DEANNA Joseph
[2020-12-29] MEDS: Carvedilol 12.5 MG Tablet PO ×2 (09:55→21:40)
[2020-12-29] MEDS: cycloBENZAPRine HCl 10 MG Tablet PO ×2 (09:55→21:39)
[2020-12-29] MEDS: HYDROmorphone 0.5 MG/0.5 ML SYRINGE IV ×3 (11:35→21:39)
[2020-12-29 11:40] VITALS: BP 121/77; PULSE 75; RESP 18; TEMP 36.6; O2SAT 98
[2020-12-29] MEDS: SACUBITRIL/VALSARTAN 97-103 MG TABLET 1 EACH PO ×2 (11:46→21:41)
[2020-12-29] MEDS: Vancomycin IV 1,000 MG/200 ML BAG 200 MG IV (12:53)
[2020-12-29 13:18] LABS: Vancomycin, Trough Level 15.4 ug/mL (5.0-15.0)
--- NOTE | 2020-12-29 14:38 | PCM.RX.CS ---
Consult Pharmacy has been consulted to manage selected antiobiotic: Vancomycin Type of Consult: Follow-up Suspected Infection: Other Prior Doses of Antibiotics Received/Current Regimen: Currently on 1gm iv q24h. Labs: Sodium 143 mmol/L (136-145) 12/29/20 05:14 Potassium 4.0 mmol/L (3.5-5.1) 12/29/20 05:14 Chloride 106 mmol/L (98-107) 12/29/20 05:14 Carbon Dioxide 33.0 mmol/L (21.0-32.0) H 12/29/20 05:14 Anion Gap 4 (5-15) L 12/29/20 05:14 BUN 50 mg/dL (7-18) H 12/29/20 05:14 Creatinine 1.42 mg/dL (0.70-1.30) H 12/29/20 05:14 Est GFR (MDRD) Af Amer 61 mL/min (>60) 12/29/20 05:14 Est GFR (MDRD) Non-Af 50 mL/min (>60) L 12/29/20 05:14 BUN/Creatinine Ratio 35.2 RATIO (10-20) H 12/29/20 05:14 Glucose 121 mg/dL (74-106) H 12/29/20 05:14 Vancomycin Trough 15.4 ug/mL (5.0-15.0) H 12/29/20 12:32 Microbiology: Microbiology 12/27/20 12:24 Blood Culture (Wb) - Anticubital Right Bacteria Detection (PCR) - Final Staphylococcus epidermidis 12/27/20 12:24 Blood Culture (Wb) - Anticubital Right Blood Culture - Preliminary 12/26/20 11:50 Blood Culture (Wb) - Right Hand Blood Culture - Preliminary Coag Negative Staph 12/26/20 11:55 Blood Culture (Wb) - Anticubital Left Bacteria Detection (PCR) - Final Coag Negative Staph 12/26/20 11:55 Blood Culture (Wb) - Anticubital Left Blood Culture - Preliminary Weight used for dosin.4 kg Estimated Creatinine Clearance: ~33ml/min Goal Trough: 15-20 mcg/mL Pharmacy Plan for Drug Dosing: Trough level today 15.4 and in therapeutic range of 15-20mcg/ml. Renal function stable. Will continue same regimen of 1gm iv q24h and get another trough level in 4 days on 01.01.21. Pharmacy Service will continue to monitor and adjust dosing as required. Follow-Up Labs: Trough Vancomycin - 01.01.21 @1230 before 1300 dose
--- NOTE | 2020-12-29 14:39 | PCM.CONS.GEN ---
Assessment & Plan Assessment/Plan (1) Discitis: QUALIFIERS: Spinal region: lumbar Qualified Code(s): M46.46 - Discitis, unspecified, lumbar region PLAN: MRSE bacteremia per pcr with L4-5 discitis - stop cefepime, cont vanc. Plan on 6 weeks iv vanc, will order picc. TTE showed no veg. Will follow, thank you (2) Bacteremia due to coagulase-negative Staphylococcus: HPI Consult Data Date of Consult: 12/29/20 HPI Narrative HPI Narrative: ERIK ARCHER, is a 85 M who originally presented 12/07/20 to the ED with severe lower back pain. Multiple admits since then, was moved to TCU, got lumbar inject by Dr. Luo 12/19 which did not help. Pain worsened, developed fever. Transferred back to [facility], CT showed discitis L4-5. Started on vanc/zosyn, changed to vanc/cefepime. Bcx x2 with CoNS. Pain slightly improved now. Full ROS performed and neg except as noted above. Has had 2 covid shots, had covid in between them 09/2020. [facility] History Atherosclerosis of coronary artery of [place] heart without angina pectoris Cancer Cardiology follow-up encounter Congestive heart failure (CHF) Coronary artery disease Depression Former smoker Hearing loss, left Hearing loss, right History of renal disease Hx of echocardiogram (~10/10/20) Hx of transesophageal echocardiography (TYRA) for monitoring (~04/29/17) Hypertension Irregular heart beat Ischemic cardiomyopathy Loss of hearing On home oxygen therapy Pacemaker Walker as ambulation aid Home Medications finasteride 5 mg PO DAILY 09/22/20 [History Last Taken 12/26/20 06:15] rivaroxaban 15 mg PO DAILY 10/13/20 [History Last Taken 12/15/20] peg [id number] 2 drp EACH EYE PRN PRN 10/21/20 [History Last Taken 12/15/20] tamsulosin 0.4 mg capsule 0.8 mg PO BID cap 11/24/20 [History Last Taken 12/26/20 09:10] furosemide 40 mg tablet 40 mg PO BID tab 12/11/20 [History Last Taken 12/26/20 06:14] Remove Patch 1 patch TOPICAL DAILY@2200 #0 12/16/20 [Rx Last Taken Unknown] acetaminophen 1,000 mg PO Q6H PRN 12/26/20 [History Last Taken 12/26/20 06:16] bisacodyl 10 mg PO DAILY PRN 12/26/20 [History Last Taken Unknown] carvedilol 12.5 mg PO BID 12/26/20 [History Last Taken 12/26/20 06:14] cetylpyridinium chloride [Cepacol] 2 robert MUCOUS MEMBRANE Q2H PRN 12/26/20 [History Last Taken Unknown] citalopram 10 mg PO DAILY 12/26/20 [History Last Taken 12/26/20 06:14] cyclobenzaprine 10 mg PO TID 12/26/20 [History Last Taken 12/26/20 06:14] lidocaine 2 patch TOPICAL DAILY 12/26/20 [History Last Taken 12/26/20 09:09] menthol-zinc oxide [Calmoseptine] 1 applic TOPICAL BID 12/26/20 [History Last Taken 12/26/20 06:13] methylprednisolone [Medrol (Larry)] See Rx Instructions .ROUTE .COMPLEX 12/26/20 [History Last Taken 12/26/20 09:09 4 mg] morphine 6 mg IV Q1H PRN 12/26/20 [History Last Taken Unknown] morphine 6 mg IV Q4H 12/26/20 [History Last Taken 12/26/20 09:03 6 mg] nystatin 50,000 unit PO 4X/DAY 12/26/20 [History Last Taken 12/25/20] oxycodone 10 mg PO Q4H 12/26/20 [History Last Taken 12/26/20 06:12] oxycodone 10 mg PO Q4H PRN 12/26/20 [History Last Taken 12/26/20] polyethylene glycol 3350 [Miralax] 17 g PO DAILY 12/26/20 [History Last Taken 12/26/20 06:15] sacubitril-valsartan [Entresto] 1 tab PO BID 12/26/20 [History Last Taken 12/26/20 06:14] senna-docusate sodium 2 tab PO BID 12/26/20 [History Last Taken 12/26/20 06:16] zolpidem [Ambien] 5 mg PO QHS PRN 12/26/20 [History Last Taken Unknown] Allergy/AdvReac Type Severity Reaction Status Date / Time ofloxacin [From Floxin] Allergy migraine Verified 12/26/20 10:57 diphenhydramine AdvReac shuts off Verified 12/26/20 10:57 [From Benadryl] my urine Family History Mother Heart problem Brother Dialysis patient Surgical History H/O colectomy History of back surgery History of benign neoplasm of salivary gland History of cardiac catheterization (~05/08/17) History of cataract extraction History of coronary artery bypass graft History of open heart surgery History of umbilical hernia repair ICD (implantable cardioverter-defibrillator) in place Social History Smoking Status: Former smoker how long ago did patient quit smokin's alcohol intake: never substance use type: does not use well-balanced diet: other details: Fluid restrictions 48 ozs per day caffeine: Yes Type: coffee Number of servings: 1 Physical Exam Const alert, oriented x3 and no apparent distress General Appearance: cooperative Exam Limitations: no limitations HEENT normocephalic and head/scalp atraumatic Eyes PERRL and EOMs intact bilaterally Neck supple and No nodes Resp normal air movement and clear to auscultation bilaterally Cardio regular rate and regular rhythm GI normal to inspection, nondistended, normoactive bowel sounds Extremity no clubbing, cyanosis or edema Skin no rashes or lesions noted Neuro CN's II-XII intact bilaterally Lab / Micro Data Result Diagrams: 12/29/20 05:14 12/29/20 05:14 Labs: Laboratory Results - last 24 hr 12/29/20 12/29/20 12/29/20 05:14 05:14 12:32 WBC 4.4 RBC 3.36 L Hgb 11.2 L Hct 34.8 L MCV 103.6 H MCH 33.3 H MCHC 32.2 RDW Std Deviation 48.4 H RDW Coeff of Daryl 12.8 Plt Count 116 L MPV 10.4 Immature Gran % (Auto) 0.500 Neut % (Auto) 70.0 Lymph % (Auto) 15.1 L [place] % (Auto) 11.6 H Eos % (Auto) 2.1 Baso % (Auto) 0.7 Absolute Neuts (auto) 3.1 Absolute Lymphs (auto) 0.66 L Nucleated RBC % 0 Sodium 143 Potassium 4.0 Chloride 106 Carbon Dioxide 33.0 H Anion Gap 4 L BUN 50 H Creatinine 1.42 H Estim Creat Clear Calc 33.08 Est GFR (MDRD) Af Amer 61 Est GFR (MDRD) Non-Af 50 L BUN/Creatinine Ratio 35.2 H Glucose 121 H Calcium 8.3 L Vancomycin Trough 15.4 H Micro: Microbiology 12/27/20 12:24 Bacteria Detection (PCR) - Final Blood Culture (Wb) - Anticubital Right Staphylococcus epidermidis Blood Culture - Preliminary 12/26/20 11:50 Blood Culture - Preliminary Blood Culture (Wb) - Right Hand Coag Negative Staph
[2020-12-29] MEDS: Ketorolac 15 MG/ML Vial IV (15:14)
--- NOTE | 2020-12-29 16:44 | CHAPLAIN ---
Type of Pastoral Visit _x__ Initial Visit ___ Follow-up Visit ___ On-call Visit ___ General Patient Visit ___ Spiritual Assessment ___ Family Conference ___ Bereavement ___ Rapid Response ___ Code Blue ___ Other (describe below) Pastoral Care Referral From _x__ Patient ___ Family ___ Nurse ___ Physician ___ Ironer Hand ___ Contracts Intern ___ Other (describe below) Sacrament/Intervention _x__ Active listening ___ Anointing ___ Samaritan ___ Bereavement ___ Communion _x__ Sandrine exploration ___ _x__ Life review _x__ Prayer ___ Reconciliation ___ Sacrament of Sick _x__ Supportive presence ___ Wedding ___ Other (describe below) Pastoral Comments
[2020-12-29 16:51] VITALS: BP 130/74; PULSE 75; RESP 16; TEMP 36.4; O2SAT 99
[2020-12-29 19:58] VITALS: BP 119/68; PULSE 75; RESP 18; TEMP 37.2; O2SAT 98
[2020-12-29] MEDS: Senna/Docusate Sodium 1 Tablet 2 TABLET PO (21:40)
[2020-12-30 02:00] VITALS: BP 129/86; PULSE 89; RESP 16; TEMP 36.9; O2SAT 98
[2020-12-30] MEDS: oxyCODONE 5 MG Tablet 10 MG PO ×2 (06:24→13:12)
[2020-12-30] MEDS: Acetaminophen 500 MG Tablet 1000 MG PO ×2 (06:24→13:12)
[2020-12-30 07:20] VITALS: O2SAT 98
[2020-12-30 07:40] VITALS: BP 157/93; PULSE 68; RESP 18; TEMP 36.7; O2SAT 99
[2020-12-30] MEDS: Senna/Docusate Sodium 1 Tablet 2 TABLET PO (07:44)
[2020-12-30] MEDS: Multivitamins,Ther W-Minerals Tablet 1 TABLET PO (07:44)
[2020-12-30] MEDS: Potassium Chloride Oral Tablet 10 MEQ PO (07:44)
[2020-12-30] MEDS: Rivaroxaban 15 MG Tablet PO (07:45)
[2020-12-30] MEDS: Tamsulosin HCl 0.4 MG Capsule 0.8 MG PO (07:45)
[2020-12-30] MEDS: Carvedilol 12.5 MG Tablet PO (07:46)
[2020-12-30] MEDS: SACUBITRIL/VALSARTAN 97-103 MG TABLET 1 EACH PO (07:46)
[2020-12-30] MEDS: Furosemide 40 MG Tablet PO (07:46)
[2020-12-30] MEDS: Polyethylene Glycol 3350 17 GM PACKET PO (07:47)
[2020-12-30] MEDS: Lidocaine 5% Patch 2 PATCH TOPICAL (07:47)
[2020-12-30] MEDS: Cholecalciferol (VIT D3) 25 MCG TABLET (1,000 UNITS) PO (07:47)
[2020-12-30] MEDS: Finasteride 5 MG Tablet PO (07:47)
--- NOTE | 2020-12-30 07:48 | PN.HOSP_ITS ---
Subjective Subjective Patient seen pain is somewhat controlled plan is for patient to be transferred to TCU pending bed availability Objective Data Objective Data Vital Signs: Vital Signs Temp Pulse Resp BP Pulse Ox 98.0 F 68 18 157/93 H 99 12/30/20 07:40 12/30/20 07:40 12/30/20 07:40 12/30/20 07:40 12/30/20 07:40 Oxygen Flow Rate (L/min) 2 Oxygen Delivery Method Nasal Cannula Weight: 79.469 kg Body Mass Index (BMI) 29.1 Intake & Output: Intake and Output for Last 24 Hours 12/28/20 12/29/20 12/30/20 23:59 23:59 23:59 Intake Total 1230 / 1230 900 / 900 Output Total 1400 / 1400 1700 / 1700 925 / 925 Balance -170 / -170 -800 / -800 -925 / -925 Lab / Micro Data Result Diagrams: 12/29/20 05:14 12/29/20 05:14 Labs: Laboratory Results - last 24 hr 12/29/20 12:32 Vancomycin Trough 15.4 H Micro: Microbiology 12/28/20 09:03 Blood Culture (Wb) - Anticubital Right Blood Culture - Preliminary No growth in 48 hours. 12/27/20 12:24 Blood Culture (Wb) - Anticubital Right Bacteria Detection (PCR) - Final Staphylococcus epidermidis 12/27/20 12:24 Blood Culture (Wb) - Anticubital Right Blood Culture - Preliminary Staphylococcus epidermidis 12/26/20 11:55 Blood Culture (Wb) - Anticubital Left Bacteria Detection (PCR) - Final Coag Negative Staph 12/26/20 11:55 Blood Culture (Wb) - Anticubital Left Blood Culture - Final 12/26/20 11:50 Blood Culture (Wb) - Right Hand Blood Culture - Final Staphylococcus epidermidis Physical Exam Narrative GENERAL: cooperative HEENT: Atraumatic; EYES; Anicteric, Normal Conjunctiva NECK; supple, normal thyroid, RESPIRATORY: Diminished to auscultation CARDIOVASCULAR: Regular S1 S2, GI: soft, normoactive bowel sounds, : No Renal angle tenderness; EXTREMITIES: No edema, no clubbing, MUSCULOSKELETAL: no muscle waisting NEURO: Awake; no lateralizing signs. SKIN: No Rash PSYCH; Flat affect Assessment & Plan Assessment/Plan (1) Discitis: QUALIFIERS: Spinal region: lumbar Qualified Code(s): M46.46 - Discitis, unspecified, lumbar region PLAN: Patient is an 85-year-old gentleman with history of degenerative joint disease with previous epidural injection by pain management as outpatient with multiple visits to the ED with intractable back pain who presented back on 12/26/[address] obtained this time demonstrated Interval development of radiolucent change along the endplates at L4-5suggestive of acute discitis. Blood cultures grew coagulase staph negative which turned out to be staph epi. Patient placed on broad-spectrum antibiotic therapy with consultation placed to ID 1. Acute intractable low back pain ?Secondary to acute discitis. Patient started on broad-spectrum antibiotic therapy with vancomycin and Zosyn. Blood cultures obtained came back positive for coagulase-negative staph?staph epi Consult placed to ID 2. Physical deconditioning - Requested for PT OT eval and psychotherapist social worker to assist with discharge planning 3. 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 Ischemic cardiomyopathy ?Status post AICD placement 5. Chronic hypoxic respiratory failure ?Patient is on baseline home oxygen 6. Chronic kidney disease stage IIIb ?Kidney function at baseline 7. Chronic A. fib/flutter ?Heart rate controlled on Coreg. Also on systemic anticoagulation with Xarelto 8. Hypertension - Blood pressure controlled, home medications continued with dose adjustment as needed 9. Coronary artery disease ?With previous CABG 10. BPH ?Patient is on both Flomax and Proscar discontinued 11. DVT prophylaxis on Xarelto Charges/Coding Visit Charges Inpatient E&M: 92299 Subs Hosp L2
[2020-12-30 08:00] VITALS: PULSE 98; RESP 18; O2SAT 94
[2020-12-30] MEDS: Citalopram 10 MG Tablet PO (08:30)
--- NOTE | 2020-12-30 08:43 | PCM.TXEXTCAR ---
Diet 12/26/20 15:46 Diet: Cardiac - Heart Healthy Food consistency:: Regular Liquid Consistency:: Regular/Thin Dietary Modifications:: Sodium Restricted Therapies Physical Therapy: Eval and Treat Occupational Therapy: Eval and Treat Problem/Diagnosis (1) Discitis: Status: Acute Allergies/Procedures Done in Hospital Allergies ofloxacin [From Floxin] Allergy (Verified 12/26/20 10:57) migraine diphenhydramine [From Benadryl] Adverse Reaction (Verified 12/26/20 10:57) shuts off my urine Type of Care/Length of Stay Estimated LOS: Convalescent Care Less Than 30 days Type of Care Needed: Skilled Rehab Potential: Good Prognosis: Good Additional Orders/Day of Discharge Day of Discharge: 12/30/20 Dietary and Speech Recommendations Dietitian Recommendations/Changes: Will change diet to Cardiac/ Na restricted - can add fluid restriction as indicated. Follow Up Care Please Follow Up With: Brayan Baltazar MD When: in 1 week Discharge Plan Admission Admit Date/Time: 12/26/20 14:27 Primary Reason for Your Visit: Discitis Attending Provider: Ronnie Childers Primary Care Provider: Prabhu Vee Consulting Providers: Brayan Baltazar Discharge Orders/Prescriptions Prescriptions: New vancomycin in dextrose 5 % 1 gram/200 mL Piggyback 1,000 mg IV Q24H 38 Days Qty: 38 RF: 0 potassium chloride 10 mEq Tablet,Er Particles/Crystals 10 meq PO BIDCM Qty: 0 RF: 0 cholecalciferol (vitamin D3) 25 mcg (1,000 unit) Tablet 25 mcg PO DAILY Qty: 0 RF: 0 Multivitamins,Ther W-Minerals [Multivitamin With Minerals (Bkc)] 1 tab PO BREAKFAST Qty: 0 RF: 0 acetaminophen 500 mg Tablet 1,000 mg PO TID Qty: 0 RF: 0 oxycodone 5 mg Tablet 5 mg PO Q4H PRN PRN (Reason: Pain Score 4-10) 3 Days Qty: 14 RF: 0 Continued tamsulosin 0.4 mg capsule 0.8 mg PO BID RF: 0 finasteride 5 MG tablet 5 mg PO DAILY RF: 0 rivaroxaban 15 MG tablet 15 mg PO DAILY RF: 0 peg [id number] 1 DRP bottle 2 drp EACH EYE PRN PRN (Reason: Dry Eyes) RF: 0 lidocaine 5 % adhesive patch,medicated 2 patch topical DAILY RF: 0 Calmoseptine 0.44-20.6 % Ointment 1 applic TOPICAL BID RF: 0 nystatin 100,000 unit/mL Suspension 50,000 unit PO 4X/DAY RF: 0 senna-docusate sodium Tablet 2 tab PO BID RF: 0 acetaminophen 500 mg Tablet 1,000 mg PO Q6H PRN (Reason: Pain) RF: 0 polyethylene glycol 3350 [Miralax] 17 gram Powder In Packet 17 g PO DAILY RF: 0 Entresto 97-103 mg Tablet 1 tab PO BID RF: 0 carvedilol 12.5 mg tablet 12.5 mg PO BID RF: 0 citalopram 10 MG tablet 10 mg PO DAILY RF: 0 cyclobenzaprine 5 mg tablet 10 mg PO TID RF: 0 cetylpyridinium chloride Lozenge 2 robert MUCOUS MEMBRANE Q2H PRN (Reason: cough/congestion) RF: 0 bisacodyl 5 mg Tablet 10 mg PO DAILY PRN (Reason: Constipation) RF: 0 furosemide 40 mg tablet 40 mg PO BID RF: 0 Discontinued Remove Patch 1 patch topical DAILY@2200 Qty: 0 RF: 0 morphine 8 mg/mL Solution 6 mg IV Q4H RF: 0 oxycodone 5 mg tablet 10 mg PO Q4H RF: 0 oxycodone 5 mg Tablet 10 mg PO Q4H PRN (Reason: Pain) RF: 0 morphine 10 mg/10 mL (1 mg/mL) Syringe 6 mg IV Q1H PRN (Reason: Pain 6-10) RF: 0 methylprednisolone [Medrol (Larry)] 4 mg Tablets,Dose Pack See Rx Instructions .ROUTE .COMPLEX RF: 0 zolpidem [Ambien] 5 mg Tablet 5 mg PO QHS PRN (Reason: Sleep) RF: 0 Referrals / Follow Up: Prabhu Vee MD [Primary Care Provider] - Disposition Disposition (needs filled in before D/C Order can be placed): Acute [facility]
--- NOTE | 2020-12-30 09:47 | CASEMGMT ---
Addendum entered by Martha Kim 12/30/20 10:47: BETY faxed all discharge instructions to TCU. SW spoke w/Johnna in TCU, they would be able to administer pt's 1pm IV antibiotics. SW will let supercharger mechanic know pt can go to TCU once pt's PICC line is placed. SW let bedside RN know as well. DEANNA Joseph Original Note: Pt can be discharged today, will need 6 weeks of IV antibiotics. SW called TCU, they can take pt back, and asked to make pt aware he may have a copay as he has used his first 20 days with Medicare already. SW called pt's insurance, it is this SW's understanding that pt will be fully covered days 21-100. SW spoke w/pt, explained he can return to TCU today. SW also explained called insurance and it is this SW's understanding from insurance that pt will be covered for days 21-100 [facility]. SW did explain the insurance explanation was confusing, however it does seem pt will be covered. Pt states understanding, states his insurance in the past has covered things well with little cost out of pocket. SW offered to call pt's family, he states he has been in touch w/family and they are aware pt will be going to TCU today. Plan: TCU later today, after PICC line placement and any IV antibiotics due this afternoon. DEANNA Joseph
--- NOTE | 2020-12-30 10:25 | PN.ID_ITS ---
Physical Exam Narrative Back pain improved, no fever, no n/v/d. Const alert General Appearance: cooperative Resp normal air movement and clear to auscultation bilaterally Cardio regular rate and regular rhythm GI normal to inspection, nondistended, normoactive bowel sounds Skin no rashes or lesions noted ID ID: Route of nutrition/ use of supplements: [] Nutritional Intake: [] IV Site: [] Toth Catheter: [] Assessment & Plan Assessment/Plan (1) Discitis: QUALIFIERS: Spinal region: lumbar Qualified Code(s): M46.46 - Discitis, unspecified, lumbar region PLAN: 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 Plan on 6 weeks iv vanc, stop date 02/10/21 with weekly labs. TTE showed no veg. Will follow, d/w director case (2) Bacteremia due to coagulase-negative Staphylococcus:
--- NOTE | 2020-12-30 10:29 | DS.PCM_ITS ---
Providers Date of Admission: 12/26/20 Primary Care Physician: Dr. Prabhu Vee MD Consultations 12/26/20 15:46 Consult: Infectious Disease Routine Consulting Provider: Brayan Baltazar Reason for Consult: diskitis EMERGENT Consult: No MD Notified: Yes Date Notified: 12/26/20 Time Notified: 14:20 Method of Notification: Verbal Reason For Visit: DISKITIS Diagnosis Discharge Diagnosis (1) Discitis: Status: Acute Code(s): M46.40 - Discitis, unspecified, site unspecified Qualifiers: Spinal region: lumbar Qualified Code(s): M46.46 - Discitis, unspecified, lumbar region (2) Bacteremia due to coagulase-negative Staphylococcus: Status: Acute Code(s): R78.81 - Bacteremia; B95.7 - Other staphylococcus as the cause of diseases classified elsewhere Medications at Discharge Home Medications finasteride 5 mg PO DAILY 09/22/20 rivaroxaban 15 mg PO DAILY 10/13/20 peg [id number] 2 drp EACH EYE PRN PRN 10/21/20 tamsulosin 0.4 mg capsule 0.8 mg PO BID cap 11/24/20 furosemide 40 mg tablet 40 mg PO BID tab 12/11/20 Calmoseptine 1 applic TOPICAL BID 12/26/20 Entresto 1 tab PO BID 12/26/20 acetaminophen 1,000 mg PO Q6H PRN 12/26/20 bisacodyl 10 mg PO DAILY PRN 12/26/20 carvedilol 12.5 mg PO BID 12/26/20 cetylpyridinium chloride 2 robert MUCOUS MEMBRANE Q2H PRN 12/26/20 citalopram 10 mg PO DAILY 12/26/20 cyclobenzaprine 10 mg PO TID 12/26/20 lidocaine 2 patch TOPICAL DAILY 12/26/20 nystatin 50,000 unit PO 4X/DAY 12/26/20 polyethylene glycol 3350 [Miralax] 17 g PO DAILY 12/26/20 senna-docusate sodium 2 tab PO BID 12/26/20 Multivitamins,Ther W-Minerals [Multivitamin With Minerals (BKC)] 1 tab PO BREAKFAST #0 12/30/20 acetaminophen 1,000 mg PO TID #0 tab 12/30/20 cholecalciferol (vitamin D3) 25 mcg PO DAILY #0 tab 12/30/20 oxycodone 5 mg PO Q4H PRN PRN 3 Days #14 tab 12/30/20 potassium chloride 10 meq PO BIDCM #0 tab 12/30/20 vancomycin in dextrose 5 % 1,000 mg IV Q24H 38 Days #38 dose 12/30/20 Hospital Course Summary of Care Provided Minutes Spent on Discharge: 45 Hospital Course: 1. Acute intractable low back pain ?Secondary to acute discitis. Patient started on broad-spectrum antibiotic therapy with vancomycin and Zosyn. Blood cultures obtained came back positive for coagulase-negative staph?staph epi Consult placed to ID -12/30/2020; patient was seen in consultation by Dr. Baltazar with infectious disease we recommended 6 weeks therapy with IV vancomycin 2. 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 Ischemic cardiomyopathy ?Status post AICD placement 5. Chronic hypoxic respiratory failure ?Patient is on baseline home oxygen 6. Chronic kidney disease stage IIIb ?Kidney function at baseline 7. Chronic A. fib/flutter ?Heart rate controlled on Coreg. Also on systemic anticoagulation with Xarelto 8. Hypertension - Blood pressure controlled, home medications continued with dose adjustment as needed 9. Coronary artery disease ?With previous CABG 10. BPH ?Patient is on both Flomax and Proscar discontinued 11. DVT prophylaxis on Xarelto Physical Exam Narrative GENERAL: cooperative HEENT: Atraumatic; EYES; Anicteric, Normal Conjunctiva NECK; supple, normal thyroid, RESPIRATORY: Diminished to auscultation CARDIOVASCULAR: Regular S1 S2, GI: soft, normoactive bowel sounds, : No Renal angle tenderness; EXTREMITIES: No edema, no clubbing, MUSCULOSKELETAL: no muscle waisting NEURO: Awake; no lateralizing signs. SKIN: No Rash PSYCH; Flat affect Weight / BMI Weight Weight: 79.469 kg Body Mass Index (BMI) 29.1 ABG / Lab / Microbiology Data Result Diagrams: 12/29/20 05:14 12/29/20 05:14 Laboratory: Laboratory Results - last 24 hr 12/29/20 12:32 Vancomycin Trough 15.4 H Microbiology: Microbiology 12/28/20 09:03 Blood Culture - Preliminary Blood Culture (Wb) - Anticubital Right No growth in 48 hours. 12/27/20 12:24 Bacteria Detection (PCR) - Final Blood Culture (Wb) - Anticubital Right Staphylococcus epidermidis Blood Culture - Preliminary Staphylococcus epidermidis 12/26/20 11:55 Bacteria Detection (PCR) - Final Blood Culture (Wb) - Anticubital Left Coag Negative Staph Blood Culture - Final 12/26/20 11:50 Blood Culture - Final Blood Culture (Wb) - Right Hand Staphylococcus epidermidis Microbiology 12/28/20 09:03 Blood Culture (Wb) - Anticubital Right Blood Culture - Preliminary No growth in 48 hours. 12/27/20 12:24 Blood Culture (Wb) - Anticubital Right Bacteria Detection (PCR) - Final Staphylococcus epidermidis 12/27/20 12:24 Blood Culture (Wb) - Anticubital Right Blood Culture - Preliminary Staphylococcus epidermidis 12/26/20 11:55 Blood Culture (Wb) - Anticubital Left Bacteria Detection (PCR) - Final Coag Negative Staph 12/26/20 11:55 Blood Culture (Wb) - Anticubital Left Blood Culture - Final 12/26/20 11:50 Blood Culture (Wb) - Right Hand Blood Culture - Final Staphylococcus epidermidis D/C Instructions Discharge Diet: No restrictions Discharge Activity: Return to Normal Activity Call your doctor if you observe: Fever of 101 or Higher, Shortness of breath, Fainting spells and Chest pain Please Follow Up With: Brayan Baltazar MD Meaningful Use Info Meaningful Use Diagnoses (Choose all that apply): None applicable Discharge Plan Admission Admit Date/Time: 12/26/20 14:27 Primary Reason for Your Visit: Discitis Attending Provider: Ronnie Childers Primary Care Provider: Prabhu Vee Consulting Providers: Brayan Baltazar Discharge Orders/Prescriptions Prescriptions: New vancomycin in dextrose 5 % 1 gram/200 mL Piggyback 1,000 mg IV Q24H 38 Days Qty: 38 RF: 0 potassium chloride 10 mEq Tablet,Er Particles/Crystals 10 meq PO BIDCM Qty: 0 RF: 0 cholecalciferol (vitamin D3) 25 mcg (1,000 unit) Tablet 25 mcg PO DAILY Qty: 0 RF: 0 Multivitamins,Ther W-Minerals [Multivitamin With Minerals (Bkc)] 1 tab PO BREAKFAST Qty: 0 RF: 0 acetaminophen 500 mg Tablet 1,000 mg PO TID Qty: 0 RF: 0 oxycodone 5 mg Tablet 5 mg PO Q4H PRN PRN (Reason: Pain Score 4-10) 3 Days Qty: 14 RF: 0 Continued tamsulosin 0.4 mg capsule 0.8 mg PO BID RF: 0 finasteride 5 MG tablet 5 mg PO DAILY RF: 0 rivaroxaban 15 MG tablet 15 mg PO DAILY RF: 0 peg [id number] 1 DRP bottle 2 drp EACH EYE PRN PRN (Reason: Dry Eyes) RF: 0 lidocaine 5 % adhesive patch,medicated 2 patch topical DAILY RF: 0 Calmoseptine 0.44-20.6 % Ointment 1 applic TOPICAL BID RF: 0 nystatin 100,000 unit/mL Suspension 50,000 unit PO 4X/DAY RF: 0 senna-docusate sodium Tablet 2 tab PO BID RF: 0 acetaminophen 500 mg Tablet 1,000 mg PO Q6H PRN (Reason: Pain) RF: 0 polyethylene glycol 3350 [Miralax] 17 gram Powder In Packet 17 g PO DAILY RF: 0 Entresto 97-103 mg Tablet 1 tab PO BID RF: 0 carvedilol 12.5 mg tablet 12.5 mg PO BID RF: 0 citalopram 10 MG tablet 10 mg PO DAILY RF: 0 cyclobenzaprine 5 mg tablet 10 mg PO TID RF: 0 cetylpyridinium chloride Lozenge 2 robert MUCOUS MEMBRANE Q2H PRN (Reason: cough/congestion) RF: 0 bisacodyl 5 mg Tablet 10 mg PO DAILY PRN (Reason: Constipation) RF: 0 furosemide 40 mg tablet 40 mg PO BID RF: 0 Discontinued Remove Patch 1 patch topical DAILY@2200 Qty: 0 RF: 0 morphine 8 mg/mL Solution 6 mg IV Q4H RF: 0 oxycodone 5 mg tablet 10 mg PO Q4H RF: 0 oxycodone 5 mg Tablet 10 mg PO Q4H PRN (Reason: Pain) RF: 0 morphine 10 mg/10 mL (1 mg/mL) Syringe 6 mg IV Q1H PRN (Reason: Pain 6-10) RF: 0 methylprednisolone [Medrol (Larry)] 4 mg Tablets,Dose Pack See Rx Instructions .ROUTE .COMPLEX RF: 0 zolpidem [Ambien] 5 mg Tablet 5 mg PO QHS PRN (Reason: Sleep) RF: 0 Referrals / Follow Up: Prabhu Vee MD [Primary Care Provider] - Brayan Baltazar MD [STAFF PHYSICIAN] - In 1 Week Disposition Disposition (needs filled in before D/C Order can be placed): Acute Care Hospital Charges/Coding Visit Charges Inpatient E&M: 94649 Disch Hosp
--- NOTE | 2020-12-30 10:41 | RAD_ITS ---
STUDY: X-RAY CHEST REASON FOR EXAM: Male, 85 years old. Line placement TECHNIQUE: Single AP portable view of the chest. COMPARISON: Comparison is made with prior study dated 10/10/2020. FINDINGS: The right-sided PICC line catheter has been placed. The tip is at the junction of the superior vena cava and right atrium. Scattered bilateral calcified granulomas. There is no demonstrated pleural abnormality. Sternal cerclage wires and vascular clips are present from a prior sternotomy and coronary artery bypass graft procedure (CABG). A left-sided dual-chamber pacemaker is seen. Normal mediastinum and kaylene. Normal visualized pulmonary arteries. There is atherosclerotic calcification of the aortic arch with tortuosity. Normal visualized thoracic spine. Normal visualized ribs, clavicles, and shoulders. There is no demonstrated abnormality of the visualized soft tissue structures of the upper abdomen. RAD/CXR for Line Placement IMPRESSION: No acute abnormality is seen. The right-sided PICC line catheter is in situ with the tip at the junction of the superior vena cava and right atrium. Electronically Signed: Felipe Beckman MD at 11:14 EDT , Service support ,
--- NOTE | 2020-12-30 10:41 | NURSING ---
spoke w/ prabhjot @ [phone] to notify of Stat CXR for line placement we will be there as soon as possible
--- NOTE | 2020-12-30 12:02 | NURSING ---
attempt to call TCU ernie diallo
[2020-12-30 13:00] VITALS: BP 131/71; PULSE 86; RESP 18; TEMP 36.7; O2SAT 96
[2020-12-30] MEDS: Vancomycin IV 1,000 MG/200 ML BAG 200 MG IV (13:11)
[2020-12-30] MEDS: cycloBENZAPRine HCl 10 MG Tablet PO (13:13)
--- NOTE | 2020-12-30 14:37 | NURSING ---
@ 1430, report called to juan josé [facility]KE[facility]-pt transported per w/ch
--- NOTE | 2020-12-30 14:51 | NURSING ---
juan josé RN notifed that PICC line cleared by dr marsh for use
== END 2020-12-30 14:45 | disposition skilled nursing facility (03) | DRG 552 ==
LOC: ED 14:06 → MS3 14:53
PROVIDERS: Family Medicine; Physician Assistant; Emergency Provider Emergency Medicine; PCP Family Medicine; Visit Provider Internal Medicine
DX: M46.46 Discitis, unspecified, lumbar region (principal); I13.0 Hypertensive heart and chronic kidney disease with heart failure and stage 1 through stage 4 chronic kidney disease, or unspecified chronic kidney disease; I50.22 Chronic systolic (congestive) heart failure; I48.20 Chronic atrial fibrillation, unspecified; J96.11 Chronic respiratory failure with hypoxia; R78.81 Bacteremia; I48.0 Paroxysmal atrial fibrillation; B95.7 Other staphylococcus as the cause of diseases classified elsewhere; N18.32 Chronic kidney disease, stage 3b; I25.5 Ischemic cardiomyopathy; I25.10 Atherosclerotic heart disease of native coronary artery without angina pectoris; N40.0 Benign prostatic hyperplasia without lower urinary tract symptoms; H91.93 Unspecified hearing loss, bilateral; F32.9 Major depressive disorder, single episode, unspecified; Z99.81 Dependence on supplemental oxygen; Z79.01 Long term (current) use of anticoagulants; Z79.899 Other long term (current) drug therapy; Z86.16 Personal history of COVID-19; Z87.891 Personal history of nicotine dependence; Z95.810 Presence of automatic (implantable) cardiac defibrillator; Z95.1 Presence of aortocoronary bypass graft
CPT/HCPCS: 36415; 36569; 71045; 72128; 72131; 80048; 80053; 80202; 81001; 83605; 85025; 85610; 85652; 85730; 87040; 87077; 87149; 87186; 93306; 97110; 97162; 97166; 97530; 97535; 99284; J7030; J7050; A4216

== ENCOUNTER 2020-12-30 15:00 | Inpatient (IN) | payer MEDICARE, OTHER, SELFPAY ==
[2020-12-26 15:34] VITALS: BMI 29.1
[2020-12-30 15:05] VITALS: BP 124/69; PULSE 72; RESP 18; TEMP 36.8; O2SAT 91; BMI 29.7
[2020-12-30 17:31] VITALS: O2SAT 91
[2020-12-30] MEDS: Furosemide 40 MG Tablet PO (18:07)
[2020-12-30] MEDS: Potassium Chloride Oral Tablet 10 MEQ PO (18:07)
[2020-12-30] MEDS: Senna/Docusate Sodium 1 Tablet 2 TABLET PO (18:08)
[2020-12-30] MEDS: SACUBITRIL/VALSARTAN 97-103 MG TABLET 1 EACH PO (18:08)
[2020-12-30] MEDS: Carvedilol 12.5 MG Tablet PO (18:08)
[2020-12-30] MEDS: Tamsulosin HCl 0.4 MG Capsule 0.8 MG PO (18:08)
[2020-12-30] MEDS: NYSTATIN 500,000 UNIT/5 ML UDC 50000 UNIT PO (18:09)
[2020-12-30] MEDS: Menthol/Lanolin/Calamine/Znox 113 GM Tube 1 APPLIC TOPICAL (18:15)
[2020-12-30 18:16] VITALS: BP 140/77; PULSE 75
[2020-12-30] MEDS: oxyCODONE 5 MG Tablet PO (20:12)
[2020-12-30] MEDS: 0.9% Saline Lock 10 ML Syringe IV (20:14)
--- NOTE | 2020-12-30 20:45 | HP.PCM_ITS ---
HPI - General General Date of Admission: 12/30/20 HPI Narrative 12/26/2020 ERIK ARCHER, is a 85 Male who presents to [facility] Emergency Department with discitis. TCU resident with intractable low back pain, despite lumbar epidural steroid injection. CT lumbosacral spine showed L4-5 discitis. Vancomycin, Zosyn given. 12/26/2020 Admit to Hospital. Vancomycin, Zosyn, blood cultures, pain control, Infectious Disease consult for L4-5 discitis. 12/26/2020 Echo Left ventricular systolic function improving. EF 35-40%. 12/27/2020 Vancomycin, Cefepime for L4-5 discitis. Hold Xarelto if surgery needed. 12/28/2020 Mild back pain. Blood culture grew coagulase negative staph. Continue Vancomycin, Cefepime IV. Acute kidney injury improving. 12/29/2020 Dr. Baltazar noted MRSE bacteremia L4-5 discitis. Recommended 6 weeks IV Vancomycin via PICC line. TTE negative for vegetations. 12/30/2020 Admit to TCU with debility, here for rehabilitation, strengthening, IV antibiotics prior to discharge home alone. [facility] Medical History Atherosclerosis of coronary artery of [place] heart without angina pectoris Cancer Cardiology follow-up encounter Congestive heart failure (CHF) Coronary artery disease Depression Former smoker Hearing loss, left Hearing loss, right History of renal disease Hx of echocardiogram (~10/10/20) Hx of transesophageal echocardiography (TYRA) for monitoring (~04/29/17) Hypertension Irregular heart beat Ischemic cardiomyopathy Loss of hearing On home oxygen therapy Pacemaker Walker as ambulation aid Home Medications finasteride 5 mg PO DAILY 09/22/20 [History Last Taken 12/26/20 06:15] rivaroxaban 15 mg PO DAILY 10/13/20 [History Last Taken 12/15/20] peg [id number] 2 drp EACH EYE PRN PRN 10/21/20 [History Last Taken 12/15/20] tamsulosin 0.4 mg capsule 0.8 mg PO BID cap 11/24/20 [History Last Taken 12/26/20 09:10] furosemide 40 mg tablet 40 mg PO BID tab 12/11/20 [History Last Taken 12/26/20 06:14] Calmoseptine 1 applic TOPICAL BID 12/26/20 [History Last Taken 12/26/20 06:13] Entresto 1 tab PO BID 12/26/20 [History Last Taken 12/26/20 06:14] acetaminophen 1,000 mg PO Q6H PRN 12/26/20 [History Last Taken 12/26/20 06:16] bisacodyl 10 mg PO DAILY PRN 12/26/20 [History Last Taken Unknown] carvedilol 12.5 mg PO BID 12/26/20 [History Last Taken 12/26/20 06:14] cetylpyridinium chloride 2 robert MUCOUS MEMBRANE Q2H PRN 12/26/20 [History Last Taken Unknown] citalopram 10 mg PO DAILY 12/26/20 [History Last Taken 12/26/20 06:14] cyclobenzaprine 10 mg PO TID 12/26/20 [History Last Taken 12/26/20 06:14] lidocaine 2 patch TOPICAL DAILY 12/26/20 [History Last Taken 12/26/20 09:09] nystatin 50,000 unit PO 4X/DAY 12/26/20 [History Last Taken 12/25/20] polyethylene glycol 3350 [Miralax] 17 g PO DAILY 12/26/20 [History Last Taken 12/26/20 06:15] senna-docusate sodium 2 tab PO BID 12/26/20 [History Last Taken 12/26/20 06:16] Multivitamins,Ther W-Minerals [Multivitamin With Minerals (BKC)] 1 tab PO BREAKFAST 12/30/20 [History Last Taken Unknown] acetaminophen 1,000 mg PO TID 12/30/20 [History Last Taken Unknown] cholecalciferol (vitamin D3) 25 mcg PO DAILY 12/30/20 [History Last Taken Unknown] oxycodone 5 mg PO Q4H PRN PRN 3 Days #14 tab 12/30/20 [Rx Last Taken Unknown] potassium chloride 10 meq PO BIDCM 12/30/20 [History Last Taken Unknown] vancomycin in dextrose 5 % 1,000 mg IV Q24H 12/30/20 [History Last Taken Unknown] Allergy/AdvReac Type Severity Reaction Status Date / Time ofloxacin [From Floxin] Allergy migraine Verified 12/26/20 10:57 diphenhydramine AdvReac shuts off Verified 12/26/20 10:57 [From Benadryl] my urine Family History Mother Heart problem Brother Dialysis patient Surgical History H/O colectomy History of back surgery History of benign neoplasm of salivary gland History of cardiac catheterization (~05/08/17) History of cataract extraction History of coronary artery bypass graft History of open heart surgery History of umbilical hernia repair ICD (implantable cardioverter-defibrillator) in place Social History (Updated 12/30/20 @ 20:[address] Melvin Kraft MD) household members: none Smoking Status: Former smoker how long ago did patient quit smokin's alcohol intake: never substance use type: does not use well-balanced diet: other details: Fluid restrictions 48 ozs per day caffeine: Yes Type: coffee Number of servings: 1 ROS Constitutional Constitutional: Denies chills, fever(s) or weight gain ENT HEENT: Denies headache(s), nasal congestion or nasal discharge Cardiovascular Cardiovascular: Denies chest pain or palpitations Respiratory/Chest Respiratory/Chest: Denies cough, excessive phlegm production or shortness of breath with exertion Gastrointestinal Gastrointestinal: Denies abdominal pain, nausea or vomiting Genitourinary Genitourinary: Denies dysuria Musculoskeletal Musculoskeletal: Denies joint pain or joint swelling Integumentary Integumentary: Denies rash or wounds Neurologic Neurologic: Denies focal weakness, numbness or tingling Psychiatric Psychiatric: Reports auditory hallucinations; Denies anxiety, depression, homicidal ideation or suicidal ideation Vital Signs Vital Signs Vital Signs: 12/30/20 15:05 12/30/20 17:31 12/30/20 18:16 Temperature 98.2 F Temperature Source Temporal Pulse Rate 72 75 Pulse Rhythm Irregular Pulse Strength Normal (2+) Respiratory Rate 18 Respiratory Effort Normal Respiratory Depth Normal Respiratory Pattern Normal Blood Pressure 124/69 H 140/77 H Blood Pressure Mean 87 98 Blood Pressure Source Monitor Monitor Blood Pressure Position Sitting Sitting Blood Pressure Location Left Arm Left Arm Pulse Ox 91 91 Oxygen Delivery Method Nasal Cannula Nasal Cannula Oxygen Flow Rate (L/min) 2.5 2 Weight Weight: 80.91 kg Body Mass Index (BMI) 29.7 Physical Exam Const alert and oriented x3 General Appearance: cooperative HEENT normocephalic Eyes PERRL and EOMs intact bilaterally Neck supple, no JVD and no carotid bruits Resp normal respiratory effort, normal air movement and clear to auscultation bilaterally Cardio regular rate and regular rhythm GI normal to inspection, nondistended, normoactive bowel sounds, non-tender and non-distended Extremity normal capillary refill Extremity Narrative: Right upper extremity PICC line. General Extremity: Negative for edema Skin no rashes or lesions noted General Skin Exam: no breakdown Psych affect normal Appearance: appropriate Assessment & Plan Assessment/Plan (1) Debility: (2) Bacteremia due to coagulase-negative Staphylococcus: (3) Discitis: QUALIFIERS: Spinal region: lumbar Qualified Code(s): M46.46 - Discitis, unspecified, lumbar region (4) Coronary artery disease: (5) Chronic systolic congestive heart failure: (6) Depression: (7) Hypertension: (8) Hearing loss: (9) Benign prostatic hyperplasia: (10) Muscle spasm: PLAN: 85 year old male with below past medical history hospitalized for L4-5 discitis, MRSE bacteremia, admitted to TCU with debility, here for rehabilitation, strengthening, intravenous antibiotics, prior to discharge home alone. * Debility - PT/OT. * Pain - Tylenol 1000MG TID, Oxycodone 5MG Q4H PRN pain (4-10), Lidoderm patch 2 patches topical daily. * Bowel - Miralax 17GM daily, Senna/colace 2 tablets BID, Dulcolax 10MG daily PRN. * Adult immunization - Administer Prevnar 13, Pneumovax 23, Fluzone, COVID19 vaccine as appropriate. * DVT prophylaxis - Not necessary, already on Xarelto. * Sore throat - Cepacol 1 lozenge Q2H PRN. * Atrial Fibrillation - Coreg 12.5MG BID, Xarelto 15MG daily. * Vitamin D deficiency - D3 1000IU daily. 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 * Muscle spasm - Flexeril 10MG TID. * BPH - Finasteride 5MG daily, Tamsulosin 0.8MG BID. * Chronic systolic congestive heart failure - Coreg 12.5MG BID, Entresto 97/103MG BID, Lasix 40MG BID. * Skin irritation - Calmoseptine topical BID. * Nutrition - MVI daily. * Thrush - Nystatin 500,000 units 4x/day x 10 days. * Dry Eye - Artificial Tears 2 drops OU Q1H PRN. * Hypokalemia - KCL 10MEQ BIDCM. * L4-5 discitis/MRSE bacteremia - Vancomycin 1000MG IV Q24H x 6 weeks via RUE PICC line, consult Dr. Baltazar.
[2020-12-30] MEDS: cycloBENZAPRine HCl 10 MG Tablet PO (22:07)
[2020-12-30] MEDS: Acetaminophen 500 MG Tablet 1000 MG PO (22:07)
[2020-12-30] MEDS: NYSTATIN 500,000 UNIT/5 ML UDC 500000 UNIT PO (22:08)
[2020-12-31 05:53] LABS: Absolute Lymphocyte Count 0.77 X10^3/uL (0.83-4.51); Basophil# 0.05 X10^3/uL; Basophil% 0.9 % (0-1); Eosinophil# 0.14 X10^3/uL; Eosinophils% 2.5 % (0-5); Hematocrit 34.5 % (40-54); Hemoglobin 11.1 g/dL (13.0-16.5); Lymphocyte # 0.77 X10^3/ul (0.83-4.51); Lymphocyte % 13.8 % (19-41); Mean Corp Hgb Conc 32.2 g/dL (32-36); Mean Corpuscular Hgb 33.6 pg (27.0-32.0); Mean Corpuscular Volume 104.5 fL (80-94); Mean Platelet Vol. 10.9 fl (6.2-12.0); Monocyte% 10.7 % (0-10); NRBC Flagged by Analyzer 0 % (0-5); Neutrophil # 3.99 X10^3/uL (2.7-7.7); Neutrophil % 71.2 % (47-70); POSITIVE COUNT YES; Platelet Count 95 K/mm3 (150-450); RBC Distribution Width CV 12.7 % (11.6-14.6); White Blood Count 5.6 K/mm3 (4.4-11.0)
[2020-12-31 05:54] VITALS: BP 124/79; PULSE 86; RESP 16; TEMP 36.1; O2SAT 97
[2020-12-31 05:54] LABS: Differential Indicated SCAN CRITERIA MET
[2020-12-31] MEDS: Polyethylene Glycol 3350 17 GM PACKET PO (05:57)
[2020-12-31] MEDS: oxyCODONE 5 MG Tablet PO ×4 (05:57→22:07)
[2020-12-31] MEDS: Acetaminophen 500 MG Tablet 1000 MG PO ×3 (05:58→22:06)
[2020-12-31] MEDS: Rivaroxaban 15 MG Tablet PO (05:58)
[2020-12-31] MEDS: Cholecalciferol (VIT D3) 25 MCG TABLET (1,000 UNITS) PO (05:58)
[2020-12-31] MEDS: Citalopram 10 MG Tablet PO (05:59)
[2020-12-31] MEDS: Furosemide 40 MG Tablet PO ×2 (05:59→17:46)
[2020-12-31] MEDS: Finasteride 5 MG Tablet PO (05:59)
[2020-12-31] MEDS: cycloBENZAPRine HCl 10 MG Tablet PO ×3 (05:59→22:06)
[2020-12-31] MEDS: SACUBITRIL/VALSARTAN 97-103 MG TABLET 1 EACH PO ×2 (05:59→17:47)
[2020-12-31] MEDS: Tamsulosin HCl 0.4 MG Capsule 0.8 MG PO ×2 (05:59→17:46)
[2020-12-31] MEDS: Menthol/Lanolin/Calamine/Znox 113 GM Tube 1 APPLIC TOPICAL ×2 (06:00→17:53)
[2020-12-31] MEDS: NYSTATIN 500,000 UNIT/5 ML UDC 500000 UNIT PO ×4 (06:03→22:20)
[2020-12-31 06:07] LABS: Anion Gap 2 (5-15); BUN 55 mg/dL (7-18); BUN/Creat Ratio 36.7 RATIO (10-20); Calcium,Total 8.3 mg/dL (8.5-10.1); Chloride 103 mmol/L (98-107); EST Glomerular Filtration Rate 47 mL/min (>60); Est Glom Filt Rate - Afr Amer 57 mL/min (>60); Estimated Creatinine Clearance 31.32 ml/min; Glucose 107 mg/dL (74-106); Potassium 4.1 mmol/L (3.5-5.1); Sodium Level 139 mmol/L (136-145)
[2020-12-31] MEDS: Lidocaine 5% Patch 2 PATCH TOPICAL (07:05)
[2020-12-31] MEDS: Carvedilol 12.5 MG Tablet PO ×2 (08:25→17:46)
[2020-12-31] MEDS: Multivitamins,Ther W-Minerals Tablet 1 TABLET PO (08:25)
[2020-12-31] MEDS: Potassium Chloride Oral Tablet 10 MEQ PO ×2 (08:25→17:46)
[2020-12-31] MEDS: Tuberculin,Purif.prot.deriv. 50 TU/ML Vial 0.1 ML ID (10:43)
[2020-12-31] MEDS: Vancomycin IV 1,000 MG/200 ML BAG 200 MG IV (12:58)
[2020-12-31] MEDS: 0.9% Saline Lock 10 ML Syringe IV (12:59)
--- NOTE | 2020-12-31 14:09 | PCM.PN.ID ---
Physical Exam Narrative Feeling ok, back pain slowly improving, no fever Const alert and no apparent distress General Appearance: cooperative Resp clear to auscultation bilaterally Cardio regular rate and regular rhythm GI normal to inspection, nondistended, normoactive bowel sounds Skin no rashes or lesions noted ID ID: Route of nutrition/ use of supplements: [] Nutritional Intake: [] IV Site: [] Toth Catheter: [] Assessment & Plan Assessment/Plan (1) Bacteremia due to coagulase-negative Staphylococcus: (2) Discitis: QUALIFIERS: Spinal region: lumbar Qualified Code(s): M46.46 - Discitis, unspecified, lumbar region PLAN: 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 Plan on 6 weeks iv vanc, stop date 02/10/21 with weekly labs. TTE showed no veg. Improving. Will follow
[2020-12-31 16:00] VITALS: BP 129/76; PULSE 74; RESP 18; TEMP 37; O2SAT 96
[2021-01-01 04:53] VITALS: BP 145/81; PULSE 68; RESP 14; TEMP 36.3; O2SAT 97
[2021-01-01] MEDS: Finasteride 5 MG Tablet PO (04:55)
[2021-01-01] MEDS: Rivaroxaban 15 MG Tablet PO (04:56)
[2021-01-01] MEDS: Furosemide 40 MG Tablet PO ×2 (04:56→17:14)
[2021-01-01] MEDS: Acetaminophen 500 MG Tablet 1000 MG PO ×3 (04:56→20:46)
[2021-01-01] MEDS: Tamsulosin HCl 0.4 MG Capsule 0.8 MG PO ×2 (04:56→17:13)
[2021-01-01] MEDS: Menthol/Lanolin/Calamine/Znox 113 GM Tube 1 APPLIC TOPICAL ×2 (04:57→17:14)
[2021-01-01] MEDS: Cholecalciferol (VIT D3) 25 MCG TABLET (1,000 UNITS) PO (04:57)
[2021-01-01] MEDS: SACUBITRIL/VALSARTAN 97-103 MG TABLET 1 EACH PO ×2 (04:57→17:13)
[2021-01-01] MEDS: cycloBENZAPRine HCl 10 MG Tablet PO ×3 (04:57→20:47)
[2021-01-01] MEDS: Citalopram 10 MG Tablet PO (04:57)
[2021-01-01] MEDS: Lidocaine 5% Patch 2 PATCH TOPICAL (04:58)
[2021-01-01] MEDS: NYSTATIN 500,000 UNIT/5 ML UDC 500000 UNIT PO ×4 (04:58→20:47)
[2021-01-01 06:32] VITALS: O2SAT 92
[2021-01-01] MEDS: oxyCODONE 5 MG Tablet PO ×4 (09:17→20:46)
[2021-01-01] MEDS: Potassium Chloride Oral Tablet 10 MEQ PO ×2 (09:17→17:14)
[2021-01-01] MEDS: Carvedilol 12.5 MG Tablet PO ×2 (09:18→17:14)
[2021-01-01] MEDS: Multivitamins,Ther W-Minerals Tablet 1 TABLET PO (09:18)
[2021-01-01 09:24] VITALS: BP 137/71; PULSE 73
--- NOTE | 2021-01-01 10:39 | NURSING ---
PT FEELING PRETTY GOOD AT THIS TIME AND PLAYING HIS HARMON[place].
[2021-01-01 14:49] LABS: Vancomycin, Trough Level 18.1 ug/mL (5.0-15.0)
--- NOTE | 2021-01-01 15:06 | PCM.PN.RX ---
Progress Note - Pharmacy Subjective: TCU ADMISSION Objective: Allergies ofloxacin [From Floxin] Allergy (Verified 12/26/20 10:57) migraine diphenhydramine [From Benadryl] Adverse Reaction (Verified 12/26/20 10:57) shuts off my urine Current Medications Generic Name Dose Route Start Last Admin Trade Name Freq PRN Reason Stop Dose Admin Acetaminophen 1,000 mg 12/30/20 22:00 01/01/21 13:30 Acetaminophen 500 Mg Tablet PO 1,000 mg TID LUIS Administration Bisacodyl 10 mg 12/30/20 16:25 Bisacodyl 5 Mg Tablet PO DAILY PRN Constipation Calamine/Phenol 1 applic 12/30/20 18:00 01/01/21 04:57 Menthol/Lanolin/Calamine/Znox 113 Gm Tube TOPICAL 1 applic BID LUIS Administration Protocol Carvedilol 12.5 mg 12/30/20 17:00 01/01/21 09:18 Carvedilol 12.5 Mg Tablet PO 12.5 mg BIDCM LUIS Administration Cholecalciferol 25 mcg 12/31/20 06:00 01/01/21 04:57 Cholecalciferol (Vit D3) 25 Mcg Tablet (1,000 Units) PO 25 mcg DAILY LUIS Administration Citalopram Hydrobromide 10 mg 12/31/20 06:00 01/01/21 04:57 Citalopram 10 Mg Tablet PO 10 mg DAILY LUIS Administration Cyclobenzaprine HCl 10 mg 12/30/20 22:00 01/01/21 13:30 Cyclobenzaprine Hcl 10 Mg Tablet PO 10 mg TID LUIS Administration Finasteride 5 mg 12/31/20 06:00 01/01/21 04:55 Finasteride 5 Mg Tablet PO 5 mg DAILY LUIS Administration Furosemide 40 mg 12/30/20 18:00 01/01/21 04:56 Furosemide 40 Mg Tablet PO 40 mg BID LUIS Administration Heparin Sodium (Beef Lung) 50 units 12/30/20 19:42 Heparin Pf Lock 10 Units/Ml 50 Units/5 Ml Syringe IV UD PRN PICC Line Heparin Flush Heparin Sodium (Beef Lung) 50 units 12/30/20 20:52 Heparin Pf Lock 10 Units/Ml 50 Units/5 Ml Syringe IV UD PRN PICC Line Heparin Flush Vancomycin HCl 1,000 mg in 200 mls @ 200 mls/hr 12/31/20 13:00 12/31/20 14:38 Vancomycin IV Infused Q24H LUIS Infusion Sodium Chloride 250 mls @ 15 mls/hr 12/30/20 19:42 12/31/20 12:59 IV 15 mls/hr .[id number] PRN Administration Saline Flush Sodium Chloride 250 mls @ 15 mls/hr 12/30/20 19:42 IV .[id number] PRN Additional IVPB Infusion Lidocaine 2 patch 12/31/20 06:00 01/01/21 04:58 Lidocaine 5% Patch TOPICAL 2 patch DAILY LUIS Administration Protocol Multivitamins/Minerals 1 tablet 12/31/20 08:00 01/01/21 09:18 Multivitamins,Ther W-Minerals Tablet PO 1 tablet BREAKFAST LUIS Administration Nystatin 500,000 unit 12/30/20 22:00 01/01/21 13:30 Nystatin 500,000 Unit/5 Ml Udc PO 01/09/21 22:01 500,000 unit 4X/DAY LUIS Administration Oxycodone HCl 5 mg 12/30/20 15:33 01/01/21 13:34 Oxycodone 5 Mg Tablet PO 5 mg Q4H PRN PRN Administration Pain Score 4-10 Polyethylene Glycol 17 gm 12/31/20 06:00 01/01/21 04:58 Polyethylene Glycol 3350 17 Gm Packet PO Not Given DAILY LUIS Potassium Chloride 10 meq 12/30/20 17:00 01/01/21 09:17 Potassium Chloride Oral Tablet 10 Meq PO 10 meq BIDCM LUIS Administration Rivaroxaban 15 mg 12/31/20 06:00 01/01/21 04:56 Rivaroxaban 15 Mg Tablet PO 15 mg DAILY LUIS Administration Sacubitril/Valsartan 1 each 12/30/20 18:00 01/01/21 04:57 Sacubitril/Valsartan 97-103 Mg Tablet PO 1 each BID LUIS Administration Senna/Docusate Sodium 2 tablet 12/30/20 18:00 01/01/21 04:59 Senna/Docusate Sodium 1 Tablet PO Not Given BID LUIS Sodium Chloride 10 - 40 ml 12/30/20 19:42 12/31/20 12:59 0.9% Saline Lock 10 Ml Syringe IV 20 ml UD PRN Administration Open End PICC Flush Sodium Chloride 10 - 40 ml 12/30/20 19:42 0.9 % Nacl (Sterile) Posiflush 10 Ml IV UD PRN Port access or dressing change Sodium Chloride 10 - 40 ml 12/30/20 20:52 0.9% Saline Lock 10 Ml Syringe IV UD PRN Open End PICC Flush Sodium Chloride 10 - 40 ml 12/30/20 20:52 0.9 % Nacl (Sterile) Posiflush 10 Ml IV UD PRN Port access or dressing change Tamsulosin HCl 0.8 mg 12/30/20 18:00 01/01/21 04:56 Tamsulosin Hcl 0.4 Mg Capsule PO 0.8 mg BID LUIS Administration Throat Lozenges 1 lozenge 12/30/20 16:26 Benzocaine/Menthol 1 Lozenge MUCOUS MEM Q2H PRN cough/congestion Tuberculin PPD 0.1 ml 01/07/21 10:00 Tuberculin,Purif.Prot.Deriv. 50 Tu/Ml Vial ID 01/07/21 10:01 X1 ONE Problem List (Last Reviewed 12/30/20 @ 20:[address] Melvin Kraft MD) Muscle spasm (Acute) Benign prostatic hyperplasia (Acute) Hearing loss (Acute) Hypertension (Chronic) Depression (Acute) Chronic systolic congestive heart failure (Chronic) Coronary artery disease (Acute) Debility (Acute) Bacteremia due to coagulase-negative Staphylococcus (Acute) Discitis (Acute) Vital Signs Temp Pulse Resp BP Pulse Ox 97.3 F L 73 14 137/71 H 92 01/01/21 04:53 01/01/21 09:24 01/01/21 04:53 01/01/21 09:24 01/01/21 06:32 Oxygen Flow Rate (L/min) 2 Oxygen Delivery Method Room Air Weight: 79.407 kg Body Mass Index (BMI) 29.7 Sodium 139 mmol/L (136-145) 12/31/20 05:20 Potassium 4.1 mmol/L (3.5-5.1) 12/31/20 05:20 Chloride 103 mmol/L (98-107) 12/31/20 05:20 Carbon Dioxide 34.0 mmol/L (21.0-32.0) H 12/31/20 05:20 Anion Gap 2 (5-15) L 12/31/20 05:20 BUN 55 mg/dL (7-18) H 12/31/20 05:20 Creatinine 1.50 mg/dL (0.70-1.30) H 12/31/20 05:20 Est GFR (MDRD) Af Amer 57 mL/min (>60) L 12/31/20 05:20 Est GFR (MDRD) Non-Af 47 mL/min (>60) L 12/31/20 05:20 BUN/Creatinine Ratio 36.7 RATIO (10-20) H 12/31/20 05:20 Glucose 107 mg/dL (74-106) H 12/31/20 05:20 Vancomycin Trough 18.1 ug/mL (5.0-15.0) H 01/01/21 13:40 Assessment/Plan: 1. Pain: Tylenol 1000mg PO TID, Lidocaine Patch 2 patches topically Daily, Oxycodone 5mg PO Q4h PRN Pain 4-10. Please continue to monitor for increased S/S pain, local skin irritation, and PRN medication usage 2. MRSE Bacteremia: Vancomycin 1g IV Q24hr x6 weeks. Please continue to monitor vancomycin trough, renal function, resolution of infection. ID following patient. 3. Atrial fibrillation/ CHF: Coreg 12.5mg PO BID, Lasix 40mg PO BID, Xarelto 15mg PO Daily, Entresto 97-103mg 1 tab PO BID. Please continue to monitor BP, pulse, fluid intake, electrolytes, renal function. 4. Hypokalemia: K-Dur 10mEq PO BID. Please continue to monitor K level (last 4.1 on 12/31). 5. BPH: Finasteride 5mg PO Daily, Flomax 0.8mg PO BID. Please continue to monitor improvement in BPH symptoms, increased/decreased urinary retention. *6. Muscle Spasms: Flexeril 10mg PO TID. Please continue to monitor for medication effectiveness. This is a Beer's Criteria medication, please monitor for anticholinergic effects while using, review for medication appropriateness if clinically indicated, thank you. 7. Sore Throat: Cepacol Lozenge 1 Q2h PRN. Please continue to monitor for medication effectiveness, PRN medication usage. 8. Thrush: Nystatin 5mL PO 4x/day thru 01/09/21. Please continue to monitor for resolution of infection, improvement in symptoms. 9. General Wellness: Vitamin D 1 tab PO Daily, MVI 1 tab PO Daily. Please continue to monitor. Psychotropic Medications: 10. Depression: Citalopram: 10mg PO Daily. Please see note in H/P regarding GDR, thank you. Unnecessary Medications: None Bowel Regimen: Miralax 17g PO Daily, Senna/Docusate 2 tab PO BID, Dulcolax 10mg PO Daily PRN. Please continue to monitor for increased/decreased constipation and/or diarrhea. Date of Note:: 01/01/21
[2021-01-01 15:14] VITALS: BP 113/66; PULSE 73; RESP 16; TEMP 36.6; O2SAT 97
[2021-01-01] MEDS: Vancomycin IV 1,000 MG/200 ML BAG 200 MG IV (15:14)
[2021-01-01] MEDS: 0.9% Saline Lock 10 ML Syringe IV (15:15)
--- NOTE | 2021-01-01 15:17 | PCM.RX.CS ---
Consult Pharmacy has been consulted to manage selected antiobiotic: Vancomycin Type of Consult: Follow-up Suspected Infection: Other Prior Doses of Antibiotics Received/Current Regimen: Currently on 1gm iv q24h. Labs: Sodium 139 mmol/L (136-145) 12/31/20 05:20 Potassium 4.1 mmol/L (3.5-5.1) 12/31/20 05:20 Chloride 103 mmol/L (98-107) 12/31/20 05:20 Carbon Dioxide 34.0 mmol/L (21.0-32.0) H 12/31/20 05:20 Anion Gap 2 (5-15) L 12/31/20 05:20 BUN 55 mg/dL (7-18) H 12/31/20 05:20 Creatinine 1.50 mg/dL (0.70-1.30) H 12/31/20 05:20 Est GFR (MDRD) Af Amer 57 mL/min (>60) L 12/31/20 05:20 Est GFR (MDRD) Non-Af 47 mL/min (>60) L 12/31/20 05:20 BUN/Creatinine Ratio 36.7 RATIO (10-20) H 12/31/20 05:20 Glucose 107 mg/dL (74-106) H 12/31/20 05:20 Vancomycin Trough 18.1 ug/mL (5.0-15.0) H 01/01/21 13:40 Weight used for dosin kg Estimated Creatinine Clearance: 31 ml/min Goal Trough: 15-20 mcg/mL Pharmacy Plan for Drug Dosing: Today's trough level was 18.1 and within goal range of 15-20mcg/ml. Stable renal function of Cr 1.5 with CrCl ~31ml/min. Will continue same dose of 1gm iv q24h and get another trough level on 01.05.21. Pharmacy Service will continue to monitor and adjust dosing as required. Follow-Up Labs: Trough Vancomycin - 01.05.21 @1230 before 1300 dose
--- NOTE | 2021-01-01 15:34 | PN.PALL_ITS ---
Subjective Subjective Sitting up in recliner in room with O2 per nasal cannula. Pleasant. Reports that pain is excruciating with movement. He had just returned from PT and rates pain as achy 7/10 and had an Oxycodone after 1:30pm. Reports that it was worse getting in and out of bed. Blood cultures verify ESHA and will be receiving Vanco through ID for 6 weeks. Denies any issues with bowels with reported multiple stools today. Denies any chest pain, falls or excessive sedation. Vital signs are stable. Discussed an increase or scheduled Oxycodone dose. Patient in agreement. Objective Data Objective Data Vital Signs: Vital Signs Temp Pulse Resp BP Pulse Ox 97.8 F 73 16 113/66 97 01/01/21 15:14 01/01/21 15:14 01/01/21 15:14 01/01/21 15:14 01/01/21 15:14 Oxygen Flow Rate (L/min) 3 Oxygen Delivery Method Room Air Weight: 79.407 kg Body Mass Index (BMI) 29.7 Intake & Output: Intake and Output for Last 24 Hours 12/30/20 12/31/20 01/01/21 23:59 23:59 23:59 Intake Total 240 / 240 830 / 830 840 / 840 Balance 240 / 240 830 / 830 840 / 840 Lab / Micro Data Result Diagrams: 12/31/20 05:20 12/31/20 05:20 Labs: Laboratory Results - last 24 hr 01/01/21 13:40 Vancomycin Trough 18.1 H Physical Exam Const alert, oriented x3 and no apparent distress Constitutional Narrative: Sitting up in recliner. Visibly grimaces with movement General Appearance: cooperative Orientation / Consciousness: awake, oriented to person, oriented to place and oriented to time HEENT normocephalic and head/scalp atraumatic Resp normal respiratory effort and normal air movement Resp Narrative: O2 per nasal cannula at 2 liters Effort and Inspection: able to speak in complete sentences and symmetric chest movement Auscultation: clear to auscultation bilaterally Cardio regular rate, regular rhythm, S1 normal heart sound, S2 normal heart sound, no murmurs, no rub and no gallops GI normal to inspection, nondistended, normoactive bowel sounds Auscultation: hyperactive bowel sounds Back/Spine Lumbar Spine / Lower Back: ROM limited and pain with ROM Extremity General Extremity: edema bilateral (trace edema KEVIN wraps in place) Neuro oriented x3, CN's II-XII intact bilaterally and moves all extremities Assessment & Plan Assessment/Plan (1) Intractable low back pain: (2) Muscle spasm: (3) Intractable back pain: (4) Discitis: QUALIFIERS: Spinal region: lumbar Qualified Code(s): M46.46 - Discitis, unspecified, lumbar region (5) Weakness: (6) Paroxysmal atrial fibrillation: (7) Stage 3b chronic kidney disease: PLAN: PLAN: 85-year-old male with several recent hospital and TCU admissions, seen today for palliative care f/u due to recurrent intractable low back pain and debility. He was originally admitted to palliative care September 2020 for symptom management of shortness of breath and weakness. 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 Pain is not stablized on current regimen. Plan is as follows: 1. Intractable low back pain: still very severe, cannot move at all without ex cruciating pain. Reports that it just grabs me with movement. Current meds: Lidocaine patches, Tylenol 1Gm TID scheduled, Oxycodone 5mg q 4 hours PRN, cyclobenzaprine 10 mg TID. Back steroid injection by Dr. Luo. Start Oxycodone 5mg every 6 hours scheduled. May use 5mg every 4 hours PRN if pain relief is not effective. 2. Weakness: He has had a few hospitalizations last month or two. Currently in TCU for rehab. We will continue to follow. 3. Shortness of breath: stable. Continues to wear O2 per nc at 2 liters. Legs are elevated with trace BLE 4. Atrial flutter/recent COVID-19/CKD/s/p MVR, s/p CABG BPH/macrocytosis/leukopenia/thrombocytopenia/systolic CHF/PAF, recent respiratory failure with hypoxia: Complicates overall care, management, recovery, and prognosis. Patient to follow-up with his specialists once discharged from TCU. [facility] to do hematological workup. Case discussed with Dr. Chioma Polk and voices agreement with plan of care. Thank you for the opportunity to participate in this patient's care, please do not hesitate to contact [facility] with any further questions or concerns. Palliative direct line is [phone]. We will follow up as outpatient and PRN while in the hospital. Greater than 50% of F2F visit dedicated to education and counseling of palliative care services, medications, comorbid conditions and potential assista nce with management, and plan of care moving forward. He is agreeable to palliative services once he is discharged from TCU. Start time: 14:57 End time: 15:30 Established patient.
[2021-01-01] MEDS: Senna/Docusate Sodium 1 Tablet 2 TABLET PO (17:13)
[2021-01-01] MEDS: 0.9 % NaCl (Sterile) Posiflush 10 mL IV (20:52)
[2021-01-02] MEDS: oxyCODONE 5 MG Tablet PO ×5 (00:04→23:56)
[2021-01-02 05:24] VITALS: BP 116/74; PULSE 74; RESP 16; TEMP 36.8; O2SAT 96
[2021-01-02] MEDS: Cholecalciferol (VIT D3) 25 MCG TABLET (1,000 UNITS) PO (05:30)
[2021-01-02] MEDS: Acetaminophen 500 MG Tablet 1000 MG PO ×3 (05:30→21:49)
[2021-01-02] MEDS: Rivaroxaban 15 MG Tablet PO (05:30)
[2021-01-02] MEDS: NYSTATIN 500,000 UNIT/5 ML UDC 500000 UNIT PO ×4 (05:30→21:50)
[2021-01-02] MEDS: Furosemide 40 MG Tablet PO ×2 (05:30→17:17)
[2021-01-02] MEDS: Citalopram 10 MG Tablet PO (05:31)
[2021-01-02] MEDS: Tamsulosin HCl 0.4 MG Capsule 0.8 MG PO ×2 (05:31→17:17)
[2021-01-02] MEDS: SACUBITRIL/VALSARTAN 97-103 MG TABLET 1 EACH PO ×2 (05:31→17:17)
[2021-01-02] MEDS: Finasteride 5 MG Tablet PO (05:31)
[2021-01-02] MEDS: cycloBENZAPRine HCl 10 MG Tablet PO ×3 (05:31→21:49)
[2021-01-02] MEDS: Menthol/Lanolin/Calamine/Znox 113 GM Tube 1 APPLIC TOPICAL ×2 (05:33→17:16)
[2021-01-02 06:45] VITALS: O2SAT 96
[2021-01-02] MEDS: Carvedilol 12.5 MG Tablet PO ×2 (07:59→17:16)
[2021-01-02] MEDS: Lidocaine 5% Patch 2 PATCH TOPICAL (07:59)
[2021-01-02] MEDS: Potassium Chloride Oral Tablet 10 MEQ PO ×2 (07:59→17:16)
[2021-01-02] MEDS: Multivitamins,Ther W-Minerals Tablet 1 TABLET PO (07:59)
[2021-01-02] MEDS: 0.9% Saline Lock 10 ML Syringe IV (12:33)
[2021-01-02] MEDS: Vancomycin IV 1,000 MG/200 ML BAG 200 MG IV (12:33)
--- NOTE | 2021-01-02 15:25 | NURSING ---
Updated Family in room
[2021-01-02 15:39] VITALS: BP 122/70; PULSE 85; RESP 18; TEMP 36.2; O2SAT 97
[2021-01-03 05:20] VITALS: BP 139/83; PULSE 72; RESP 16; TEMP 36.4; O2SAT 96
[2021-01-03] MEDS: Menthol/Lanolin/Calamine/Znox 113 GM Tube 1 APPLIC TOPICAL ×2 (05:22→17:17)
[2021-01-03] MEDS: oxyCODONE 5 MG Tablet PO ×6 (05:23→23:35)
[2021-01-03] MEDS: Tamsulosin HCl 0.4 MG Capsule 0.8 MG PO ×2 (05:23→17:16)
[2021-01-03] MEDS: Furosemide 40 MG Tablet PO ×2 (05:24→17:16)
[2021-01-03] MEDS: Acetaminophen 500 MG Tablet 1000 MG PO ×3 (05:24→22:36)
[2021-01-03] MEDS: cycloBENZAPRine HCl 10 MG Tablet PO ×3 (05:24→22:36)
[2021-01-03] MEDS: Citalopram 10 MG Tablet PO (05:25)
[2021-01-03] MEDS: Rivaroxaban 15 MG Tablet PO (05:25)
[2021-01-03] MEDS: SACUBITRIL/VALSARTAN 97-103 MG TABLET 1 EACH PO ×2 (05:25→17:16)
[2021-01-03] MEDS: NYSTATIN 500,000 UNIT/5 ML UDC 500000 UNIT PO ×4 (05:25→22:36)
[2021-01-03] MEDS: Finasteride 5 MG Tablet PO (05:25)
[2021-01-03] MEDS: Cholecalciferol (VIT D3) 25 MCG TABLET (1,000 UNITS) PO (05:26)
[2021-01-03] MEDS: Lidocaine 5% Patch 2 PATCH TOPICAL (05:26)
[2021-01-03] MEDS: Potassium Chloride Oral Tablet 10 MEQ PO ×2 (09:02→17:16)
[2021-01-03] MEDS: Carvedilol 12.5 MG Tablet PO ×2 (09:02→17:16)
[2021-01-03] MEDS: Multivitamins,Ther W-Minerals Tablet 1 TABLET PO (09:02)
[2021-01-03 09:47] VITALS: PULSE 85; RESP 18; O2SAT 99
[2021-01-03] MEDS: 0.9% Saline Lock 10 ML Syringe IV ×2 (13:21→14:47)
[2021-01-03] MEDS: Vancomycin IV 1,000 MG/200 ML BAG 200 MG IV (13:21)
[2021-01-03 13:36] VITALS: BP 98/62; PULSE 70; RESP 15; TEMP 36.6; O2SAT 95
[2021-01-04 05:36] VITALS: BP 118/65; PULSE 72; RESP 16; TEMP 36.8; O2SAT 93
[2021-01-04] MEDS: 0.9% Saline Lock 10 ML Syringe IV ×2 (05:37→13:46)
[2021-01-04] MEDS: oxyCODONE 5 MG Tablet PO ×6 (05:39→23:37)
[2021-01-04] MEDS: Acetaminophen 500 MG Tablet 1000 MG PO ×3 (05:40→20:05)
[2021-01-04] MEDS: Senna/Docusate Sodium 1 Tablet 2 TABLET PO ×2 (05:41→17:56)
[2021-01-04] MEDS: Cholecalciferol (VIT D3) 25 MCG TABLET (1,000 UNITS) PO (05:41)
[2021-01-04] MEDS: cycloBENZAPRine HCl 10 MG Tablet PO ×3 (05:41→20:06)
[2021-01-04] MEDS: Tamsulosin HCl 0.4 MG Capsule 0.8 MG PO ×2 (05:41→17:57)
[2021-01-04] MEDS: Citalopram 10 MG Tablet PO (05:41)
[2021-01-04] MEDS: SACUBITRIL/VALSARTAN 97-103 MG TABLET 1 EACH PO ×2 (05:41→17:55)
[2021-01-04] MEDS: Finasteride 5 MG Tablet PO (05:42)
[2021-01-04] MEDS: NYSTATIN 500,000 UNIT/5 ML UDC 500000 UNIT PO ×4 (05:42→20:06)
[2021-01-04] MEDS: Rivaroxaban 15 MG Tablet PO (05:42)
[2021-01-04] MEDS: Furosemide 40 MG Tablet PO ×2 (05:43→17:55)
[2021-01-04] MEDS: Lidocaine 5% Patch 2 PATCH TOPICAL (05:44)
[2021-01-04] MEDS: Menthol/Lanolin/Calamine/Znox 113 GM Tube 1 APPLIC TOPICAL ×2 (05:54→17:57)
[2021-01-04 07:12] VITALS: O2SAT 95
[2021-01-04] MEDS: Potassium Chloride Oral Tablet 10 MEQ PO ×2 (08:55→17:56)
[2021-01-04] MEDS: Carvedilol 12.5 MG Tablet PO ×2 (08:55→17:54)
[2021-01-04] MEDS: Multivitamins,Ther W-Minerals Tablet 1 TABLET PO (08:55)
[2021-01-04] MEDS: Vancomycin IV 1,000 MG/200 ML BAG 200 MG IV (13:46)
[2021-01-04 16:00] VITALS: BP 115/69; PULSE 90; RESP 18; TEMP 36.6; O2SAT 98
--- NOTE | 2021-01-04 18:08 | NURSING ---
lidoderm x2 patches removed from lower left flank and hip area.
[2021-01-04 18:21] VITALS: PULSE 74; RESP 18; O2SAT 93
[2021-01-04 19:00] VITALS: O2SAT 95
[2021-01-05 05:00] VITALS: BP 129/72; PULSE 82; RESP 18; TEMP 36.5; O2SAT 95
[2021-01-05] MEDS: NYSTATIN 500,000 UNIT/5 ML UDC 500000 UNIT PO ×4 (06:07→21:24)
[2021-01-05] MEDS: Senna/Docusate Sodium 1 Tablet 2 TABLET PO ×2 (06:07→17:41)
[2021-01-05] MEDS: SACUBITRIL/VALSARTAN 97-103 MG TABLET 1 EACH PO ×2 (06:08→17:41)
[2021-01-05] MEDS: Citalopram 10 MG Tablet PO (06:08)
[2021-01-05] MEDS: Finasteride 5 MG Tablet PO (06:08)
[2021-01-05] MEDS: Cholecalciferol (VIT D3) 25 MCG TABLET (1,000 UNITS) PO (06:08)
[2021-01-05] MEDS: Tamsulosin HCl 0.4 MG Capsule 0.8 MG PO ×2 (06:08→17:41)
[2021-01-05] MEDS: Rivaroxaban 15 MG Tablet PO (06:08)
[2021-01-05] MEDS: Furosemide 40 MG Tablet PO ×2 (06:08→17:41)
[2021-01-05] MEDS: cycloBENZAPRine HCl 10 MG Tablet PO ×3 (06:09→21:23)
[2021-01-05] MEDS: Menthol/Lanolin/Calamine/Znox 113 GM Tube 1 APPLIC TOPICAL ×2 (06:09→17:42)
[2021-01-05] MEDS: oxyCODONE 5 MG Tablet PO ×5 (06:10→17:41)
[2021-01-05] MEDS: Acetaminophen 500 MG Tablet 1000 MG PO ×3 (06:10→21:24)
[2021-01-05] MEDS: Lidocaine 5% Patch 2 PATCH TOPICAL (07:13)
[2021-01-05] MEDS: Multivitamins,Ther W-Minerals Tablet 1 TABLET PO (08:48)
[2021-01-05] MEDS: Potassium Chloride Oral Tablet 10 MEQ PO ×2 (08:48→17:41)
[2021-01-05] MEDS: Carvedilol 12.5 MG Tablet PO ×2 (08:48→17:41)
[2021-01-05 10:00] VITALS: PULSE 72; RESP 16; O2SAT 94
[2021-01-05 13:37] LABS: Vancomycin, Trough Level 20.4 ug/mL (5.0-15.0)
--- NOTE | 2021-01-05 13:39 | NURSING ---
Notified Jeff in pharmacy of patient's current vanco trough, received permission to administer vancomycin.
[2021-01-05] MEDS: 0.9% Saline Lock 10 ML Syringe IV (13:48)
[2021-01-05] MEDS: Vancomycin IV 1,000 MG/200 ML BAG 200 MG IV (13:48)
--- NOTE | 2021-01-05 13:59 | PCM.RX.CS ---
Consult Pharmacy has been consulted to manage selected antiobiotic: Vancomycin Type of Consult: Follow-up Suspected Infection: Other Prior Doses of Antibiotics Received/Current Regimen: Has been on 1gm iv q24h since 12.27.20. Labs: Sodium 139 mmol/L (136-145) 12/31/20 05:20 Potassium 4.1 mmol/L (3.5-5.1) 12/31/20 05:20 Chloride 103 mmol/L (98-107) 12/31/20 05:20 Carbon Dioxide 34.0 mmol/L (21.0-32.0) H 12/31/20 05:20 Anion Gap 2 (5-15) L 12/31/20 05:20 BUN 55 mg/dL (7-18) H 12/31/20 05:20 Creatinine 1.50 mg/dL (0.70-1.30) H 12/31/20 05:20 Est GFR (MDRD) Af Amer 57 mL/min (>60) L 12/31/20 05:20 Est GFR (MDRD) Non-Af 47 mL/min (>60) L 12/31/20 05:20 BUN/Creatinine Ratio 36.7 RATIO (10-20) H 12/31/20 05:20 Glucose 107 mg/dL (74-106) H 12/31/20 05:20 Vancomycin Trough 20.4 ug/mL (5.0-15.0) H 01/05/21 12:35 Weight used for dosin.4 kg Estimated Creatinine Clearance: ~31 ml/min Goal Trough: 15-20 mcg/mL Pharmacy Plan for Drug Dosing: Today's trough level was 20.4 as a 23hrs post infusion with goal range of 15-20 mcg/ml. Previous level on 01.01 was 18.1. Will change dose to 750mg iv daily due to trough level trending up. A repeat trough level has been ordered for 01.08.21 before 3rd dose of new regimen. Pharmacy Service will continue to monitor and adjust dosing as required. Follow-Up Labs: Trough Vancomycin - 01.08.21 @1230 before 1300 dose
[2021-01-05 15:24] VITALS: BP 105/71; PULSE 86; RESP 18; TEMP 36.4; O2SAT 94
--- NOTE | 2021-01-05 17:05 | RAD_ITS ---
STUDY: X-RAY CHEST REASON FOR EXAM: Male, 85 years old. line has pulled out some TECHNIQUE: Single AP portable view of the chest. COMPARISON: 12/30/2020 FINDINGS: Interval retraction of the right upper extremity PICC with tip the catheter overlying the right brachiocephalic vein. Left subclavian dual-lead AICD which is unchanged. Status post median sternotomy. The lungs are clear and expanded. There is no demonstrated pleural abnormality. There is moderate cardiac enlargement. Normal mediastinum and kaylene. Normal visualized pulmonary arteries. Normal visualized aortic arch and descending thoracic aorta. Normal visualized thoracic spine. Normal visualized ribs, clavicles, and shoulders. There is no demonstrated abnormality of the visualized soft tissue structures of the upper abdomen. RAD/CXR for Line Placement IMPRESSION: Interval retraction of right upper extremity PICC with tip the catheter overlying the right brachiocephalic vein. Electronically Signed: Prabhu Brewer MD at 17:20 EDT Tel , Service support ,
[2021-01-06] MEDS: oxyCODONE 5 MG Tablet PO ×5 (00:53→17:33)
[2021-01-06 05:00] VITALS: BP 140/74; PULSE 71; RESP 14; TEMP 36.3; O2SAT 94
[2021-01-06] MEDS: SACUBITRIL/VALSARTAN 97-103 MG TABLET 1 EACH PO ×2 (05:41→17:33)
[2021-01-06] MEDS: Citalopram 10 MG Tablet PO (05:41)
[2021-01-06] MEDS: Acetaminophen 500 MG Tablet 1000 MG PO ×3 (05:41→22:33)
[2021-01-06] MEDS: Furosemide 40 MG Tablet PO ×2 (05:42→17:33)
[2021-01-06] MEDS: Cholecalciferol (VIT D3) 25 MCG TABLET (1,000 UNITS) PO (05:42)
[2021-01-06] MEDS: cycloBENZAPRine HCl 10 MG Tablet PO ×3 (05:42→22:33)
[2021-01-06] MEDS: Tamsulosin HCl 0.4 MG Capsule 0.8 MG PO ×2 (05:42→17:32)
[2021-01-06] MEDS: Rivaroxaban 15 MG Tablet PO (05:42)
[2021-01-06] MEDS: Lidocaine 5% Patch 2 PATCH TOPICAL (05:43)
[2021-01-06] MEDS: NYSTATIN 500,000 UNIT/5 ML UDC 500000 UNIT PO ×4 (05:43→22:33)
[2021-01-06] MEDS: Finasteride 5 MG Tablet PO (05:43)
[2021-01-06] MEDS: Menthol/Lanolin/Calamine/Znox 113 GM Tube 1 APPLIC TOPICAL ×2 (05:43→17:33)
--- NOTE | 2021-01-06 08:37 | NURSING ---
Spoke w/ Shantel, thorough fountain helper to update order received this am to have PICC line replaced. Updated Vancomycin IV ordered. Will need a PICC line packet printed and consent obtained.
[2021-01-06] MEDS: Multivitamins,Ther W-Minerals Tablet 1 TABLET PO (09:01)
[2021-01-06] MEDS: Carvedilol 12.5 MG Tablet PO ×2 (09:01→17:33)
[2021-01-06] MEDS: Potassium Chloride Oral Tablet 10 MEQ PO ×2 (09:01→17:33)
[2021-01-06 10:19] VITALS: O2SAT 94
--- NOTE | 2021-01-06 12:56 | PN.PALL_ITS ---
Subjective Subjective Sitting up in chair, no pain if he holds still. He has pain with any movement. Grimaces, says it is sharp. Therapy is a little bit easier now. He is most comfortable when lying in bed flat on his back. Objective Data Objective Data Vital Signs: Vital Signs Temp Pulse Resp BP Pulse Ox 97.3 F L 71 14 140/74 H 94 01/06/21 05:00 01/06/21 05:00 01/06/21 05:00 01/06/21 05:00 01/06/21 10:19 Oxygen Flow Rate (L/min) 2 Oxygen Delivery Method Nasal Cannula Weight: 79.577 kg Body Mass Index (BMI) 29.7 Intake & Output: Intake and Output for Last 24 Hours 01/04/21 01/05/21 01/06/21 23:59 23:59 23:59 Intake Total 1020 / 1020 600 / 600 240 / 240 Output Total 800 / 800 400 / 400 Balance 220 / 220 600 / 600 -160 / -160 Lab / Micro Data Result Diagrams: 01/07/21 05:15 01/07/21 05:15 Labs: Laboratory Results - last 24 hr 01/05/21 12:35 Vancomycin Trough 20.4 H Radiography Diagnostic Testing: Radiology Impression Chest X-Ray 01/05/21 17:05 IMPRESSION: Interval retraction of right upper extremity PICC with tip the catheter overlying the right brachiocephalic vein. Electronically Signed: Prabhu Brewer MD at 17:20 EDT Tel , Service support , Physical Exam Const alert and oriented x3 General Appearance: cooperative Neck supple General: trachea midline Resp normal respiratory effort Effort and Inspection: able to speak in complete sentences Auscultation: clear to auscultation bilaterally and diminished lung sounds Cardio regular rate and regular rhythm GI Inspection: other Other Details: rounded abdomen Auscultation: normoactive bowel sounds Palpation: soft Back/Spine General Back: tenderness Lumbar Spine / Lower Back: pain with ROM Extremity no clubbing, cyanosis or edema Skin no rashes or lesions noted General Skin Exam: ecchymosis Neuro oriented x3 and no focal motor deficits Psych cooperative Psych Narrative: appears somewhat uncomfortable but improved Insight: insight good Judgement: judgement good Assessment & Plan Assessment/Plan (1) Intractable low back pain: (2) Muscle spasm: (3) Intractable back pain: (4) Discitis: QUALIFIERS: Spinal region: lumbar Qualified Code(s): M46.46 - Discitis, unspecified, lumbar region (5) Weakness: (6) Paroxysmal atrial fibrillation: (7) Stage 3b chronic kidney disease: PLAN: 85-year-old male with several recent hospital and TCU admissions, seen today for palliative care f/u due to recurrent intractable low back pain and debility. He was originally admitted to palliative care September 2020 for symptom management of shortness of breath and weakness. 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 Pain has not been well managed on current regimen. Plan is as follows: 1. Intractable low back pain: still fairly severe, added scheduled oxycodone 5mg q6h, also w/ PRN dose 5mg q4h. we will increase his as needed dose to 1-2 tabs (5 to 10 mg) every 4 hours as needed for breakthrough pain. Other Current meds: Lidocaine patches, Tylenol 1Gm TID scheduled, cyclobenzaprine 10 mg TID. Steroid injection by Dr. Luo. 2. Weakness: He has had a few hospitalizations last month or two. Currently in TCU for rehab. We will continue to follow. 3. Shortness of breath: stable. Continues to wear O2 2L prn 4. Atrial flutter/recent COVID-19/CKD/s/p MVR, s/p CABG BPH/macrocytosis/l eukopenia/thrombocytopenia/systolic CHF/PAF, recent respiratory failure with hypoxia: Complicates overall care, management, recovery, and prognosis. Patient to follow-up with his specialists once discharged from TCU. [facility] to do hematological workup. Case discussed with Dr. Chioma Polk and voices agreement with plan of care. Thank you for the opportunity to participate in this patient's care, please do not hesitate to contact [facility] with any further questions or co ncerns. Palliative direct line is [phone]. We will follow up as outpatient and PRN while in the hospital. Greater than 50% of F2F visit dedicated to education and counseling of palliative care services, medications, comorbid conditions and potential assistance with management, and plan of care moving forward. Start time: 1235 End time: 1304
--- NOTE | 2021-01-06 14:22 | NURSING ---
Removed Picc per order d/t being dislodged. Pt handled procedure well tip intact winnie at 43cm. Applied petroleum gauze dressing. Access nurse in room reinserting a new PICC line at this time.
--- NOTE | 2021-01-06 14:33 | NURSING ---
Called pharmacy to update on PICC becoming Dislodged and needed a new PICC. Pharmacy stated they will retime vancomycin when we get verification of PICC Line.
--- NOTE | 2021-01-06 15:20 | RAD_ITS ---
STUDY: X-RAY CHEST REASON FOR EXAM: Male, 85 years old. STAT -- Protable TECHNIQUE: Single AP portable view of the chest. COMPARISON: 01/05/2021 FINDINGS: Right upper extremity PICC with tip the catheter overlying the superior vena cava. Left subclavian dual-lead AICD which is unchanged. Status post median sternotomy. The lungs are clear and expanded. There is no demonstrated pleural abnormality. There is moderate cardiac enlargement. Normal mediastinum and kaylene. Normal visualized pulmonary arteries. Normal visualized aortic arch and descending thoracic aorta. Normal visualized thoracic spine. Normal visualized ribs, clavicles, and shoulders. There is no demonstrated abnormality of the visualized soft tissue structures of the upper abdomen. RAD/CXR for Line Placement IMPRESSION: 1. Right upper extremity PICC with tip the catheter overlying the spur vena cava. 2. No active disease. Electronically Signed: Prabhu Brewer MD at 15:41 EDT Tel , Service support ,
[2021-01-06 15:35] VITALS: BP 103/49; PULSE 70; RESP 18; TEMP 36.3; O2SAT 94
--- NOTE | 2021-01-06 16:01 | NURSING ---
X-Ray read after PICC placement Dr. Kraft updated and okay to start using. Will call Pharmacy to adjust Vancomycin time.
[2021-01-06] MEDS: 0.9% Saline Lock 10 ML Syringe IV (16:17)
--- NOTE | 2021-01-06 16:38 | NURSING ---
Resident and son notified of resident testing positive for COVID.
[2021-01-06 17:36] VITALS: BP 121/68; PULSE 75
--- NOTE | 2021-01-06 18:31 | NURSING ---
Pt's bleeding PICC insertion site outlined and applied pressure dressing to site. Updated Dr. Kraft. Will continue to monitor.
[2021-01-06 21:42] VITALS: PULSE 71; RESP 12
[2021-01-07] MEDS: oxyCODONE 5 MG Tablet PO ×6 (00:38→23:23)
[2021-01-07 05:44] LABS: Absolute Lymphocyte Count 0.66 X10^3/uL (0.83-4.51); Absolute Neutrophil Count 3.2 X10^3/uL (2.0-7.7); Basophil# 0.03 X10^3/uL; Basophil% 0.6 % (0-1); Eosinophil# 0.17 X10^3/uL; Eosinophils% 3.5 % (0-5); Hematocrit 32.3 % (40-54); Hemoglobin 10.2 g/dL (13.0-16.5); Lymphocyte # 0.66 X10^3/ul (0.83-4.51); Lymphocyte % 13.7 % (19-41); Mean Corp Hgb Conc 31.6 g/dL (32-36); Mean Corpuscular Hgb 33.3 pg (27.0-32.0); Mean Corpuscular Volume 105.6 fL (80-94); Mean Platelet Vol. 10.8 fl (6.2-12.0); Monocyte# 0.71 X10^3/uL; Monocyte% 14.8 % (0-10); NRBC Flagged by Analyzer 0 % (0-5); Neutrophil # 3.21 X10^3/uL (2.7-7.7); Neutrophil % 66.8 % (47-70); POSITIVE COUNT YES; Platelet Count 95 K/mm3 (150-450); RBC Distribution Width CV 13.5 % (11.6-14.6); RBC Distribution Width SD 51.8 fl (35.1-43.9); Red Blood Count 3.06 M/mm3 (4.6-6.2); White Blood Count 4.8 K/mm3 (4.4-11.0)
[2021-01-07 05:56] LABS: Anion Gap 3 (5-15); BUN 39 mg/dL (7-18); BUN/Creat Ratio 27.3 RATIO (10-20); Calcium,Total 8.2 mg/dL (8.5-10.1); Chloride 103 mmol/L (98-107); Creatinine, Serum 1.43 mg/dL (0.70-1.30); EST Glomerular Filtration Rate 50 mL/min (>60); Est Glom Filt Rate - Afr Amer 60 mL/min (>60); Estimated Creatinine Clearance 32.85 ml/min; Glucose 108 mg/dL (74-106); Potassium 3.9 mmol/L (3.5-5.1); Sodium Level 142 mmol/L (136-145)
[2021-01-07 06:01] VITALS: BP 128/68; PULSE 71; RESP 16; TEMP 36.4; O2SAT 95
[2021-01-07] MEDS: cycloBENZAPRine HCl 10 MG Tablet PO ×3 (06:03→21:29)
[2021-01-07] MEDS: Rivaroxaban 15 MG Tablet PO (06:03)
[2021-01-07] MEDS: Acetaminophen 500 MG Tablet 1000 MG PO ×3 (06:03→21:29)
[2021-01-07] MEDS: Senna/Docusate Sodium 1 Tablet 2 TABLET PO ×2 (06:03→17:19)
[2021-01-07] MEDS: Citalopram 10 MG Tablet PO (06:04)
[2021-01-07] MEDS: Lidocaine 5% Patch 2 PATCH TOPICAL (06:04)
[2021-01-07] MEDS: Finasteride 5 MG Tablet PO (06:04)
[2021-01-07] MEDS: SACUBITRIL/VALSARTAN 97-103 MG TABLET 1 EACH PO ×2 (06:04→17:20)
[2021-01-07] MEDS: Furosemide 40 MG Tablet PO ×2 (06:04→17:19)
[2021-01-07] MEDS: NYSTATIN 500,000 UNIT/5 ML UDC 500000 UNIT PO ×4 (06:04→21:29)
[2021-01-07] MEDS: Tamsulosin HCl 0.4 MG Capsule 0.8 MG PO ×2 (06:04→17:20)
[2021-01-07] MEDS: Cholecalciferol (VIT D3) 25 MCG TABLET (1,000 UNITS) PO (06:06)
[2021-01-07] MEDS: Menthol/Lanolin/Calamine/Znox 113 GM Tube 1 APPLIC TOPICAL ×2 (06:08→17:20)
[2021-01-07] MEDS: Multivitamins,Ther W-Minerals Tablet 1 TABLET PO (08:17)
[2021-01-07] MEDS: Potassium Chloride Oral Tablet 10 MEQ PO ×2 (08:17→17:20)
[2021-01-07] MEDS: Carvedilol 12.5 MG Tablet PO ×2 (08:17→17:20)
--- NOTE | 2021-01-07 10:28 | CASEMGMT ---
Plan of Care meeting held today with pt present and pt son Stevan on Conference call. Pt is receiveng PT/OT and participating well. Pain in back is currently a limiting factor although pt is still progressing with therapy. Pt plans to return home alone to independent living at time of discharge. No discharge date has been set at this time as pt is continuing to benefit from treatment on TCU. Will continue with treatment plan and SW will assist with discharge planning at the appropriate time. SWAPNA Navas
[2021-01-07] MEDS: Tuberculin,Purif.prot.deriv. 50 TU/ML Vial 0.1 ML ID (11:09)
[2021-01-07 14:02] VITALS: BP 123/70; PULSE 70; RESP 18; TEMP 36.4; O2SAT 98
[2021-01-07 16:40] VITALS: O2SAT 97
[2021-01-07] MEDS: 0.9% Saline Lock 10 ML Syringe IV (17:24)
[2021-01-07 21:40] VITALS: BP 143/73; PULSE 73; RESP 18; TEMP 36.8; O2SAT 94
[2021-01-08] MEDS: oxyCODONE 5 MG Tablet PO ×4 (01:39→13:09)
[2021-01-08 05:00] VITALS: BP 143/65; PULSE 70; RESP 18; TEMP 36.6; O2SAT 96
[2021-01-08] MEDS: Acetaminophen 500 MG Tablet 1000 MG PO ×3 (05:26→21:00)
[2021-01-08] MEDS: NYSTATIN 500,000 UNIT/5 ML UDC 500000 UNIT PO ×4 (05:26→20:59)
[2021-01-08] MEDS: Menthol/Lanolin/Calamine/Znox 113 GM Tube 1 APPLIC TOPICAL ×2 (05:26→18:09)
[2021-01-08] MEDS: Tamsulosin HCl 0.4 MG Capsule 0.8 MG PO ×2 (05:27→18:05)
[2021-01-08] MEDS: cycloBENZAPRine HCl 10 MG Tablet PO ×3 (05:27→21:00)
[2021-01-08] MEDS: Furosemide 40 MG Tablet PO ×2 (05:28→18:07)
[2021-01-08] MEDS: Cholecalciferol (VIT D3) 25 MCG TABLET (1,000 UNITS) PO (05:28)
[2021-01-08] MEDS: SACUBITRIL/VALSARTAN 97-103 MG TABLET 1 EACH PO ×2 (05:29→18:05)
[2021-01-08] MEDS: Rivaroxaban 15 MG Tablet PO (05:29)
[2021-01-08] MEDS: Citalopram 10 MG Tablet PO (05:30)
[2021-01-08] MEDS: Finasteride 5 MG Tablet PO (05:30)
[2021-01-08] MEDS: Senna/Docusate Sodium 1 Tablet 2 TABLET PO ×2 (05:35→18:07)
[2021-01-08 06:48] VITALS: O2SAT 96
[2021-01-08] MEDS: Multivitamins,Ther W-Minerals Tablet 1 TABLET PO (08:27)
[2021-01-08] MEDS: Carvedilol 12.5 MG Tablet PO ×2 (08:27→18:05)
[2021-01-08] MEDS: Potassium Chloride Oral Tablet 10 MEQ PO ×2 (08:27→18:05)
[2021-01-08] MEDS: Lidocaine 5% Patch 2 PATCH TOPICAL (08:28)
[2021-01-08 14:19] VITALS: BP 100/61; PULSE 80; RESP 18; TEMP 36.6; O2SAT 94
--- NOTE | 2021-01-08 16:02 | PCM.PN.PAL ---
Subjective Subjective Lying in bed, appears fairly comfortable. Reports he was doing well this morning but sat in chair too long and developed excruciating pain again. He tried changing positions for quite some time with no relief. Was able to have relief when lying on his back in bed. This is the only thing that really helps. Pain medication takes the edge off but not very helpful otherwise. Still rating pain 10 out of 10 most of the time. Has a PICC line to the right upper extremity, dressing needs changed. d/w nursing. He continues with long-term IV antibiotics for discitis. Bowels are moving, last BM 01/07. Objective Data Objective Data Vital Signs: Vital Signs Temp Pulse Resp BP Pulse Ox 97.9 F 80 18 100/61 94 01/08/21 14:19 01/08/21 14:19 01/08/21 14:19 01/08/21 14:19 01/08/21 14:19 Oxygen Flow Rate (L/min) 2 Oxygen Delivery Method Nasal Cannula Weight: 77.564 kg Body Mass Index (BMI) 29.7 Intake & Output: Intake and Output for Last 24 Hours 01/06/21 01/07/21 01/08/21 23:59 23:59 23:59 Intake Total 1295 / 1295 985 / 985 480 / 480 Output Total 400 / 400 Balance 895 / 895 985 / 985 480 / 480 Lab / Micro Data Result Diagrams: 01/07/21 05:15 01/07/21 05:15 Micro: Microbiology 01/07/21 11:20 Interface Orders SARS-CoV-2 Antigen (Rapid) - Final Physical Exam Narrative lying in bed, appears fairly comfortable Const alert, oriented x3 and no apparent distress General Appearance: cooperative HEENT normocephalic and head/scalp atraumatic Neck supple General: trachea midline Resp normal respiratory effort and normal air movement Resp Narrative: O2 per nasal cannula at 2 liters Effort and Inspection: able to speak in complete sentences and symmetric chest movement Auscultation: clear to auscultation bilaterally and diminished lung sounds Cardio regular rate, regular rhythm, S1 normal heart sound and S2 normal heart sound GI Inspection: abdominal distention and visible herniation Auscultation: normoactive bowel sounds Palpation: soft Back/Spine Lumbar Spine / Lower Back: ROM limited and pain with ROM Extremity no clubbing, cyanosis or edema Skin General Skin Exam: ecchymosis Neuro CN's II-XII intact bilaterally and no focal motor deficits Psych Insight: insight good Judgement: judgement good Assessment & Plan Assessment/Plan (1) Intractable low back pain: (2) Muscle spasm: (3) Discitis: QUALIFIERS: Spinal region: lumbar Qualified Code(s): M46.46 - Discitis, unspecified, lumbar region (4) Weakness: (5) Paroxysmal atrial fibrillation: (6) Stage 3b chronic kidney disease: PLAN: 85-year-old male with several recent hospital and TCU admissions, seen today for palliative care f/u due to recurrent intractable low back pain and debility. He was originally admitted to palliative care September 2020 for symptom management of shortness of breath and weakness. 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 Pain has not been well controlled. Plan is as follows: 1. Intractable low back pain: still fairly severe 01/01: added scheduled oxycodone 5mg q6h 01/06: increase PRN dose to 1-2 tabs (5 to 10 mg) every 4 hours as needed for breakthrough pain. 01/08: increase scheduled dose of oxycodone to 10 mg every 6 hours due to poor pain control, as discitis subsides we can wean him down off of narcotics. Other Current meds: Lidocaine patches, Tylenol 1Gm TID scheduled, cyclobenzaprine 10 mg TID. Steroid injection by Dr. Luo. May need to consider course of dexamethasone. 2. Weakness: He has had a few hospitalizations last month or two. Currently in TCU for rehab. We will continue to follow. 3. Shortness of breath: stable. Continues to wear O2 2L prn 4. Atrial flutter/recent COVID-19/CKD/s/p MVR, s/p CABG BPH/macrocytosis/leukopenia/thrombocytopenia/systolic CHF/PAF, recent respiratory failure with hypoxia: Complicates overall care, management, recovery, and prognosis. Patient to follow-up with his specialists once discharged from TCU. [facility] to do hematological workup. Thank you for the opportunity to participate in this patient's care, please do not hesitate to contact [facility] with any further questions or concerns. Palliative direct line is [phone]. We will follow up as outpatient and PRN while in the hospital. Greater than 50% of F2F visit dedicated to education and counseling of palliative care services, medications, comorbid conditions and potential assistance with management, and plan of care moving forward. Start time: 1554 End time: 1620
[2021-01-08 16:11] LABS: Vancomycin, Trough Level 17.5 ug/mL (5.0-15.0)
--- NOTE | 2021-01-08 16:25 | PHA.PHARE_ITS ---
Consult Pharmacy has been consulted to manage selected antiobiotic: Vancomycin Type of Consult: Follow-up Suspected Infection: Other Labs: Sodium 142 mmol/L (136-145) 01/07/21 05:15 Potassium 3.9 mmol/L (3.5-5.1) 01/07/21 05:15 Chloride 103 mmol/L (98-107) 01/07/21 05:15 Carbon Dioxide 36.0 mmol/L (21.0-32.0) H 01/07/21 05:15 Anion Gap 3 (5-15) L 01/07/21 05:15 BUN 39 mg/dL (7-18) H 01/07/21 05:15 Creatinine 1.43 mg/dL (0.70-1.30) H 01/07/21 05:15 Est GFR (MDRD) Af Amer 60 mL/min (>60) 01/07/21 05:15 Est GFR (MDRD) Non-Af 50 mL/min (>60) L 01/07/21 05:15 BUN/Creatinine Ratio 27.3 RATIO (10-20) H 01/07/21 05:15 Glucose 108 mg/dL (74-106) H 01/07/21 05:15 Vancomycin Trough 17.5 ug/mL (5.0-15.0) H 01/08/21 15:22 Microbiology: Microbiology 01/07/21 11:20 Interface Orders SARS-CoV-2 Antigen (Rapid) - Final Goal Trough: 15-20 mcg/mL Pharmacy Plan for Drug Dosing: VANCOMYCIN LEVEL RECEIVED Current Vancomycin Dose: 750mg IV q24h Number of Doses Received: 2 x 750mg Vancomycin Level: 17.5 Hours Since Last Dose: 23 Renal Function: SrCr 1.43 Renal Function Trend: stable Lab/Micro: Vancomycin Plan/Comments: pts trough level is within ordered goal range of 15- 20. recommend continuing current dose of 750mg IV q24h and checking a trough after 3 more doses Pending Level: 01/11/21 @ 1530 Pharmacy Service will continue to monitor and adjust dosing as required. Follow-Up Labs: Trough Vancomycin - 01/11/21 at 1530
[2021-01-08] MEDS: oxyCODONE 5 MG Tablet 10 MG PO ×2 (18:04→23:45)
[2021-01-08] MEDS: 0.9% Saline Lock 10 ML Syringe IV (18:07)
[2021-01-09 05:46] VITALS: BP 126/84; PULSE 71; RESP 16; TEMP 36.7; O2SAT 93
[2021-01-09] MEDS: oxyCODONE 5 MG Tablet 10 MG PO ×3 (05:47→17:10)
[2021-01-09] MEDS: cycloBENZAPRine HCl 10 MG Tablet PO ×3 (05:48→20:29)
[2021-01-09] MEDS: NYSTATIN 500,000 UNIT/5 ML UDC 500000 UNIT PO ×4 (05:49→20:29)
[2021-01-09] MEDS: SACUBITRIL/VALSARTAN 97-103 MG TABLET 1 EACH PO ×2 (05:49→17:03)
[2021-01-09] MEDS: Citalopram 10 MG Tablet PO (05:49)
[2021-01-09] MEDS: Senna/Docusate Sodium 1 Tablet 2 TABLET PO ×2 (05:49→17:03)
[2021-01-09] MEDS: Polyethylene Glycol 3350 17 GM PACKET PO (05:49)
[2021-01-09] MEDS: Tamsulosin HCl 0.4 MG Capsule 0.8 MG PO ×2 (05:50→17:03)
[2021-01-09] MEDS: Cholecalciferol (VIT D3) 25 MCG TABLET (1,000 UNITS) PO (05:50)
[2021-01-09] MEDS: Furosemide 40 MG Tablet PO ×2 (05:50→17:03)
[2021-01-09] MEDS: Finasteride 5 MG Tablet PO (05:51)
[2021-01-09] MEDS: Acetaminophen 500 MG Tablet 1000 MG PO ×3 (05:51→20:29)
[2021-01-09] MEDS: Rivaroxaban 15 MG Tablet PO (05:51)
[2021-01-09] MEDS: Lidocaine 5% Patch 2 PATCH TOPICAL (05:52)
[2021-01-09] MEDS: Menthol/Lanolin/Calamine/Znox 113 GM Tube 1 APPLIC TOPICAL ×2 (05:53→17:05)
[2021-01-09 06:04] LABS: Hematocrit 34.4 % (40-54); Hemoglobin 10.8 g/dL (13.0-16.5)
[2021-01-09 08:06] VITALS: O2SAT 92
[2021-01-09] MEDS: Multivitamins,Ther W-Minerals Tablet 1 TABLET PO (08:20)
[2021-01-09] MEDS: Carvedilol 12.5 MG Tablet PO ×2 (08:20→16:59)
[2021-01-09] MEDS: Potassium Chloride Oral Tablet 10 MEQ PO ×2 (08:21→16:59)
[2021-01-09] MEDS: oxyCODONE 5 MG Tablet PO ×2 (09:39→13:08)
[2021-01-09 10:00] VITALS: PULSE 75; RESP 14; O2SAT 95
[2021-01-09] MEDS: 0.9% Saline Lock 10 ML Syringe IV (10:16)
--- NOTE | 2021-01-09 12:02 | NURSING ---
Updated son Stevan pt had CT scan and labs today, son said he will be in to visit this afternoon
[2021-01-09 13:33] VITALS: BP 109/62; PULSE 90; RESP 17; TEMP 36.8; O2SAT 95
--- NOTE | 2021-01-09 13:39 | NURSING ---
updated dr hernandez on CT scan results, new order to consult Dr Hedrick. ortho office notified, secretarty states she will update dr hedrick when he is out of a patient room.
[2021-01-10] MEDS: oxyCODONE 5 MG Tablet 10 MG PO ×4 (00:01→17:55)
[2021-01-10 05:00] VITALS: BP 166/83; PULSE 73; RESP 18; TEMP 36.4; O2SAT 90
[2021-01-10] MEDS: Senna/Docusate Sodium 1 Tablet 2 TABLET PO ×2 (07:00→17:51)
[2021-01-10] MEDS: Cholecalciferol (VIT D3) 25 MCG TABLET (1,000 UNITS) PO (07:04)
[2021-01-10] MEDS: Acetaminophen 500 MG Tablet 1000 MG PO ×3 (07:04→20:12)
[2021-01-10] MEDS: Furosemide 40 MG Tablet PO ×2 (07:04→17:51)
[2021-01-10] MEDS: Tamsulosin HCl 0.4 MG Capsule 0.8 MG PO ×2 (07:04→17:51)
[2021-01-10] MEDS: Rivaroxaban 15 MG Tablet PO (07:04)
[2021-01-10] MEDS: Lidocaine 5% Patch 2 PATCH TOPICAL (07:05)
[2021-01-10] MEDS: Menthol/Lanolin/Calamine/Znox 113 GM Tube 1 APPLIC TOPICAL ×2 (07:05→17:56)
[2021-01-10] MEDS: Citalopram 10 MG Tablet PO (07:05)
[2021-01-10] MEDS: SACUBITRIL/VALSARTAN 97-103 MG TABLET 1 EACH PO ×2 (07:05→17:51)
[2021-01-10] MEDS: cycloBENZAPRine HCl 10 MG Tablet PO ×3 (07:05→20:12)
[2021-01-10] MEDS: Finasteride 5 MG Tablet PO (07:05)
[2021-01-10] MEDS: Carvedilol 12.5 MG Tablet PO ×2 (09:26→17:51)
[2021-01-10] MEDS: Multivitamins,Ther W-Minerals Tablet 1 TABLET PO (09:26)
[2021-01-10] MEDS: Potassium Chloride Oral Tablet 10 MEQ PO ×2 (09:26→17:51)
[2021-01-10 14:35] VITALS: BP 121/71; PULSE 71; RESP 16; TEMP 36.2; O2SAT 95
[2021-01-10] MEDS: 0.9% Saline Lock 10 ML Syringe IV (15:53)
[2021-01-10 20:13] VITALS: RESP 14
[2021-01-10] MEDS: Glycerin/Hypromellose/PEG400 15 ml Bottle 2 DRP EACH EYE (20:32)
[2021-01-11] MEDS: oxyCODONE 5 MG Tablet 10 MG PO ×4 (00:07→17:09)
[2021-01-11 05:00] VITALS: BP 122/75; PULSE 72; RESP 16; TEMP 36.7; O2SAT 97
[2021-01-11] MEDS: SACUBITRIL/VALSARTAN 97-103 MG TABLET 1 EACH PO ×2 (05:27→17:09)
[2021-01-11] MEDS: Cholecalciferol (VIT D3) 25 MCG TABLET (1,000 UNITS) PO (05:27)
[2021-01-11] MEDS: Furosemide 40 MG Tablet PO ×2 (05:27→17:09)
[2021-01-11] MEDS: Senna/Docusate Sodium 1 Tablet 2 TABLET PO ×2 (05:27→17:09)
[2021-01-11] MEDS: Tamsulosin HCl 0.4 MG Capsule 0.8 MG PO ×2 (05:27→17:09)
[2021-01-11] MEDS: Acetaminophen 500 MG Tablet 1000 MG PO ×3 (05:27→21:32)
[2021-01-11] MEDS: Rivaroxaban 15 MG Tablet PO (05:27)
[2021-01-11] MEDS: Finasteride 5 MG Tablet PO (05:27)
[2021-01-11] MEDS: cycloBENZAPRine HCl 10 MG Tablet PO ×3 (05:28→21:32)
[2021-01-11] MEDS: Citalopram 10 MG Tablet PO (05:28)
[2021-01-11] MEDS: Lidocaine 5% Patch 2 PATCH TOPICAL (05:28)
[2021-01-11] MEDS: Menthol/Lanolin/Calamine/Znox 113 GM Tube 1 APPLIC TOPICAL ×2 (05:30→17:09)
[2021-01-11] MEDS: Potassium Chloride Oral Tablet 10 MEQ PO ×2 (08:00→17:09)
[2021-01-11] MEDS: Multivitamins,Ther W-Minerals Tablet 1 TABLET PO (08:00)
[2021-01-11] MEDS: Carvedilol 12.5 MG Tablet PO ×2 (08:00→17:09)
[2021-01-11 10:00] VITALS: PULSE 65; O2SAT 95
[2021-01-11 16:00] VITALS: BP 144/82; PULSE 70; RESP 16; TEMP 36.5; O2SAT 95
[2021-01-11 16:10] LABS: Vancomycin, Trough Level 16.9 ug/mL (5.0-15.0)
--- NOTE | 2021-01-11 16:18 | PCM.RX.CS ---
Consult Pharmacy has been consulted to manage selected antiobiotic: Vancomycin Type of Consult: Follow-up Suspected Infection: Other Labs: Sodium 142 mmol/L (136-145) 01/07/21 05:15 Potassium 3.9 mmol/L (3.5-5.1) 01/07/21 05:15 Chloride 103 mmol/L (98-107) 01/07/21 05:15 Carbon Dioxide 36.0 mmol/L (21.0-32.0) H 01/07/21 05:15 Anion Gap 3 (5-15) L 01/07/21 05:15 BUN 39 mg/dL (7-18) H 01/07/21 05:15 Creatinine 1.43 mg/dL (0.70-1.30) H 01/07/21 05:15 Est GFR (MDRD) Af Amer 60 mL/min (>60) 01/07/21 05:15 Est GFR (MDRD) Non-Af 50 mL/min (>60) L 01/07/21 05:15 BUN/Creatinine Ratio 27.3 RATIO (10-20) H 01/07/21 05:15 Glucose 108 mg/dL (74-106) H 01/07/21 05:15 Vancomycin Trough 16.9 ug/mL (5.0-15.0) H 01/11/21 15:35 Microbiology: Microbiology 01/07/21 11:20 Interface Orders SARS-CoV-2 Antigen (Rapid) - Final Goal Trough: 15-20 mcg/mL Pharmacy Plan for Drug Dosing: VANCOMYCIN LEVEL RECEIVED Current Vancomycin Dose: 750MG Q24H Number of Doses Received: 5 Vancomycin Level: 16.9 MG/DL Hours Since Last Dose: 24 Renal Function: SCR 1.43 - LAST LEVEL 01/07 Renal Function Trend: STABLE Vancomycin Plan/Comments: LEVEL IS THERAPEUTIC. CONTINUE CURRENT DOSING AND DRAW A TROUGH IN 3 DAYS. Pending Level: 01/14/21 @ 1530 Pharmacy Service will continue to monitor and adjust dosing as required.
[2021-01-11] MEDS: 0.9% Saline Lock 10 ML Syringe IV (16:43)
[2021-01-11] MEDS: Glycerin/Hypromellose/PEG400 15 ml Bottle 2 DRP EACH EYE (17:08)
[2021-01-12] MEDS: oxyCODONE 5 MG Tablet 10 MG PO ×5 (00:11→23:55)
[2021-01-12 05:00] VITALS: BP 147/78; PULSE 72; RESP 16; TEMP 36.7; O2SAT 94
[2021-01-12] MEDS: Tamsulosin HCl 0.4 MG Capsule 0.8 MG PO ×2 (05:46→17:33)
[2021-01-12] MEDS: Citalopram 10 MG Tablet PO (05:47)
[2021-01-12] MEDS: Senna/Docusate Sodium 1 Tablet 2 TABLET PO ×2 (05:47→17:32)
[2021-01-12] MEDS: Rivaroxaban 15 MG Tablet PO (05:47)
[2021-01-12] MEDS: cycloBENZAPRine HCl 10 MG Tablet PO ×3 (05:47→21:18)
[2021-01-12] MEDS: Cholecalciferol (VIT D3) 25 MCG TABLET (1,000 UNITS) PO (05:47)
[2021-01-12] MEDS: Acetaminophen 500 MG Tablet 1000 MG PO ×3 (05:47→21:18)
[2021-01-12] MEDS: SACUBITRIL/VALSARTAN 97-103 MG TABLET 1 EACH PO ×2 (05:47→17:33)
[2021-01-12] MEDS: Furosemide 40 MG Tablet PO ×2 (05:47→17:33)
[2021-01-12] MEDS: Polyethylene Glycol 3350 17 GM PACKET PO (05:47)
[2021-01-12] MEDS: Finasteride 5 MG Tablet PO (05:47)
[2021-01-12] MEDS: Menthol/Lanolin/Calamine/Znox 113 GM Tube 1 APPLIC TOPICAL ×2 (05:49→17:32)
[2021-01-12] MEDS: 0.9% Saline Lock 10 ML Syringe IV ×2 (05:51→16:11)
[2021-01-12 06:51] VITALS: O2SAT 95
[2021-01-12] MEDS: Multivitamins,Ther W-Minerals Tablet 1 TABLET PO (07:46)
[2021-01-12] MEDS: Potassium Chloride Oral Tablet 10 MEQ PO ×2 (07:46→17:32)
[2021-01-12] MEDS: Carvedilol 12.5 MG Tablet PO ×2 (07:46→17:32)
[2021-01-12] MEDS: Lidocaine 5% Patch 2 PATCH TOPICAL (10:11)
--- NOTE | 2021-01-12 14:13 | MDS.RN ---
Information for the mds was obtained from review of the clinical record, interview of resident, staff, and direct observation of resident's care.
[2021-01-12 14:52] VITALS: BP 105/56; PULSE 70; RESP 16; TEMP 36.6; O2SAT 96
[2021-01-12 20:50] VITALS: PULSE 71; RESP 16; O2SAT 94
[2021-01-13 05:00] VITALS: BP 123/84; PULSE 104; RESP 16; TEMP 36.7; O2SAT 96
[2021-01-13] MEDS: Acetaminophen 500 MG Tablet 1000 MG PO ×3 (06:35→21:37)
[2021-01-13] MEDS: oxyCODONE 5 MG Tablet 10 MG PO ×3 (06:35→17:34)
[2021-01-13] MEDS: Rivaroxaban 15 MG Tablet PO (06:36)
[2021-01-13] MEDS: Citalopram 10 MG Tablet PO (06:36)
[2021-01-13] MEDS: Furosemide 40 MG Tablet PO ×2 (06:36→17:35)
[2021-01-13] MEDS: Cholecalciferol (VIT D3) 25 MCG TABLET (1,000 UNITS) PO (06:36)
[2021-01-13] MEDS: Tamsulosin HCl 0.4 MG Capsule 0.8 MG PO ×2 (06:36→17:34)
[2021-01-13] MEDS: cycloBENZAPRine HCl 10 MG Tablet PO ×3 (06:36→21:37)
[2021-01-13] MEDS: SACUBITRIL/VALSARTAN 97-103 MG TABLET 1 EACH PO ×2 (06:36→17:35)
[2021-01-13] MEDS: Menthol/Lanolin/Calamine/Znox 113 GM Tube 1 APPLIC TOPICAL ×2 (06:37→17:35)
[2021-01-13] MEDS: Finasteride 5 MG Tablet PO (06:37)
[2021-01-13] MEDS: Lidocaine 5% Patch 2 PATCH TOPICAL (06:38)
[2021-01-13 06:49] VITALS: O2SAT 96
--- NOTE | 2021-01-13 09:34 | NURSING ---
Dr. Luo to see pt later today after office hours.
[2021-01-13] MEDS: Carvedilol 12.5 MG Tablet PO ×2 (09:53→17:35)
[2021-01-13] MEDS: Potassium Chloride Oral Tablet 10 MEQ PO ×2 (09:53→17:35)
[2021-01-13] MEDS: Multivitamins,Ther W-Minerals Tablet 1 TABLET PO (09:53)
--- NOTE | 2021-01-13 11:28 | PCM.PN.PAL ---
Subjective Subjective Sitting up in chair, appears relaxed and comfortable. Smiling, talking on the phone with his daughter. States he is feeling better today and was happy that he ambulated from the therapy room clear back to his room. States if he moves his legs around too much it does aggravate the pain quite a bit. Currently rating pain 5 out of 10. This is a significant improvement. Continues with IV antibiotics. Reviewed notes and blood work. Also reviewed CT of the lumbar spine with contrast dated 01/09/2021. Patient asking for results. Dr. Luo is supposed to come in later this afternoon, will defer to him. Objective Data Objective Data Vital Signs: Vital Signs Temp Pulse Resp BP Pulse Ox 98.1 F 104 H 16 123/84 H 96 01/13/21 05:00 01/13/21 05:00 01/13/21 05:00 01/13/21 05:00 01/13/21 06:49 Oxygen Flow Rate (L/min) 2 Oxygen Delivery Method Nasal Cannula Weight: 79.56 kg Body Mass Index (BMI) 29.7 Intake & Output: Intake and Output for Last 24 Hours 01/11/21 01/12/21 01/13/21 23:59 23:59 23:59 Intake Total 935 / 935 1475 / 1475 250 / 250 Output Total 1000 / 1000 1100 / 1100 Balance -65 / -65 375 / 375 250 / 250 Lab / Micro Data Result Diagrams: 01/09/21 05:30 01/07/21 05:15 Micro: Microbiology 01/07/21 11:20 Interface Orders SARS-CoV-2 Antigen (Rapid) - Final Physical Exam Narrative lying in bed, appears fairly comfortable Const alert, oriented x3 and no apparent distress Constitutional Narrative: Sitting up in recliner. Visibly grimaces with movement HEENT normocephalic and head/scalp atraumatic Neck supple General: trachea midline Resp Resp Narrative: O2 per nasal cannula at 2 liters Effort and Inspection: symmetric chest movement Auscultation: clear to auscultation bilaterally and diminished lung sounds Cardio S1 normal heart sound and S2 normal heart sound GI normal to inspection, nondistended, normoactive bowel sounds Inspection: visible herniation Back/Spine General Back: tenderness Lumbar Spine / Lower Back: ROM limited and pain with ROM Extremity General Extremity: edema bilateral (trace edema KEVIN wraps in place); Negative for cyanosis Skin no rashes or lesions noted General Skin Exam: ecchymosis Neuro CN's II-XII intact bilaterally and no focal motor deficits Psych mental status grossly normal Psych Narrative: appears somewhat uncomfortable but improved Assessment & Plan Assessment/Plan (1) Intractable low back pain: (2) Muscle spasm: (3) Discitis: QUALIFIERS: Spinal region: lumbar Qualified Code(s): M46.46 - Discitis, unspecified, lumbar region (4) Weakness: (5) Paroxysmal atrial fibrillation: PLAN: 85-year-old male with several recent hospital and TCU admissions, seen today for palliative care f/u due to recurrent intractable low back pain and debility. He was originally admitted to palliative care September 2020 for symptom management of shortness of breath and weakness r/t CHF. 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 1. Intractable low back pain: still fairly severe 01/01: added scheduled oxycodone 5mg q6h 01/06: increased oxycodone PRN dose to 1-2 tabs (5 to 10 mg) every 4 hours as needed for breakthrough pain. 01/08: increased scheduled dose oxycodone to 10 mg q6 hours due to poor pain control, as discitis subsides we can wean him down off of narcotics. 01/13: improvement of pain as of today. able to walk farther. not as sore. not always grimacing w/every movement. No changes to meds at this time. Hold off on dexa. Dr. Luo possibly in later today? Other Current meds: Lidocaine patches, Tylenol 1Gm TID scheduled, cyclobenzaprine 10 mg TID. Steroid injection by Dr. Luo. 2. Weakness: He has had a few hospitalizations last month or two. Currently in TCU for rehab. We will continue to follow. 3. Shortness of breath: stable. Continues to wear O2 2L prn 4. Atrial flutter/recent COVID-19/CKD/s/p MVR, s/p CABG BPH/macrocytosis/leukopenia/thrombocytopenia/systolic CHF/PAF, recent respiratory failure with hypoxia: Complicates overall care, management, recovery, and prognosis. Patient to follow-up with his specialists once discharged from TCU. [facility] to do hematological workup. Thank you for the opportunity to participate in this patient's care, please do not hesitate to contact [facility] with any further questions or concerns. Palliative direct line is [phone]. We will follow up as outpatient and PRN while in the hospital. Greater than 50% of F2F visit dedicated to education and counseling of palliative care services, medications, comorbid conditions and potential assistance with management, and plan of care moving forward. Start time: 1123 End time: 1144
[2021-01-13 12:50] VITALS: PULSE 74; RESP 16; O2SAT 95
[2021-01-13 16:05] VITALS: BP 124/66; PULSE 75; RESP 14; TEMP 36.6; O2SAT 98
[2021-01-13] MEDS: Senna/Docusate Sodium 1 Tablet 2 TABLET PO (17:35)
--- NOTE | 2021-01-13 18:52 | NURSING ---
dr Luo in to see pt, no new orders. no injections d/t infection.
[2021-01-14] MEDS: oxyCODONE 5 MG Tablet 10 MG PO ×4 (00:09→17:14)
[2021-01-14] MEDS: Menthol/Lanolin/Calamine/Znox 113 GM Tube 1 APPLIC TOPICAL ×2 (05:07→17:14)
[2021-01-14] MEDS: Finasteride 5 MG Tablet PO (05:08)
[2021-01-14] MEDS: Tamsulosin HCl 0.4 MG Capsule 0.8 MG PO ×2 (05:08→17:13)
[2021-01-14] MEDS: Citalopram 10 MG Tablet PO (05:08)
[2021-01-14] MEDS: Senna/Docusate Sodium 1 Tablet 2 TABLET PO ×2 (05:08→17:14)
[2021-01-14] MEDS: Furosemide 40 MG Tablet PO ×2 (05:08→17:13)
[2021-01-14] MEDS: Cholecalciferol (VIT D3) 25 MCG TABLET (1,000 UNITS) PO (05:08)
[2021-01-14] MEDS: 0.9% Saline Lock 10 ML Syringe IV ×3 (05:08→21:18)
[2021-01-14] MEDS: Rivaroxaban 15 MG Tablet PO (05:09)
[2021-01-14] MEDS: SACUBITRIL/VALSARTAN 97-103 MG TABLET 1 EACH PO ×2 (05:09→17:13)
[2021-01-14] MEDS: Acetaminophen 500 MG Tablet 1000 MG PO ×3 (05:09→21:13)
[2021-01-14] MEDS: Polyethylene Glycol 3350 17 GM PACKET PO (05:09)
[2021-01-14] MEDS: cycloBENZAPRine HCl 10 MG Tablet PO ×3 (05:09→21:13)
[2021-01-14] MEDS: Lidocaine 5% Patch 2 PATCH TOPICAL (05:17)
[2021-01-14 05:31] VITALS: BP 113/70; PULSE 77; RESP 17; TEMP 36.8; O2SAT 95
[2021-01-14 05:55] LABS: Absolute Lymphocyte Count 0.58 X10^3/uL (0.83-4.51); Absolute Neutrophil Count 1.8 X10^3/uL (2.0-7.7); Basophil# 0.04 X10^3/uL; Basophil% 1.3 % (0-1); Eosinophil# 0.09 X10^3/uL; Eosinophils% 2.9 % (0-5); Hematocrit 34.9 % (40-54); Hemoglobin 10.8 g/dL (13.0-16.5); Lymphocyte # 0.58 X10^3/ul (0.83-4.51); Lymphocyte % 18.9 % (19-41); Mean Corp Hgb Conc 30.9 g/dL (32-36); Mean Corpuscular Hgb 33.1 pg (27.0-32.0); Mean Corpuscular Volume 107.1 fL (80-94); Mean Platelet Vol. 11.3 fl (6.2-12.0); Monocyte# 0.55 X10^3/uL; Monocyte% 17.9 % (0-10); NRBC Flagged by Analyzer 0 % (0-5); Neutrophil # 1.79 X10^3/uL (2.7-7.7); Neutrophil % 58.3 % (47-70); POSITIVE COUNT YES; POSITIVE DIFFERENTIAL YES; Platelet Count 64 K/mm3 (150-450); RBC Distribution Width CV 14.1 % (11.6-14.6); RBC Distribution Width SD 55.5 fl (35.1-43.9); Red Blood Count 3.26 M/mm3 (4.6-6.2); White Blood Count 3.1 K/mm3 (4.4-11.0)
[2021-01-14 05:57] LABS: Differential Indicated SCAN CRITERIA MET
[2021-01-14 06:13] LABS: Platelet Estimate MOD DEC (ADEQ)
[2021-01-14 06:16] LABS: Anion Gap 4 (5-15); BUN 44 mg/dL (7-18); Calcium,Total 8.8 mg/dL (8.5-10.1); Chloride 102 mmol/L (98-107); Creatinine, Serum 1.69 mg/dL (0.70-1.30); EST Glomerular Filtration Rate 41 mL/min (>60); Est Glom Filt Rate - Afr Amer 50 mL/min (>60); Glucose 103 mg/dL (74-106); Potassium 4.1 mmol/L (3.5-5.1); Sodium Level 140 mmol/L (136-145)
[2021-01-14] MEDS: Carvedilol 12.5 MG Tablet PO ×2 (07:49→17:13)
[2021-01-14] MEDS: oxyCODONE 5 MG Tablet PO (07:49)
[2021-01-14] MEDS: Potassium Chloride Oral Tablet 10 MEQ PO ×2 (07:49→17:13)
[2021-01-14] MEDS: Multivitamins,Ther W-Minerals Tablet 1 TABLET PO (07:49)
[2021-01-14 08:04] VITALS: O2SAT 95
--- NOTE | 2021-01-14 10:26 | NURSING ---
Pt gained 3.1lbs in [address] Kraft. Educated pt on importance of monitoring fluid intake and will continue to monitor Intake.
--- NOTE | 2021-01-14 11:04 | NURSING ---
Vascular called this nurse and stated that Doppler was negative.
[2021-01-14 13:38] LABS: Pathologist Review Reviewed
[2021-01-14 15:04] VITALS: BP 122/91; PULSE 70; RESP 18; TEMP 36.5; O2SAT 94
[2021-01-14 16:24] LABS: Vancomycin, Trough Level 18.1 ug/mL (5.0-15.0)
--- NOTE | 2021-01-14 17:03 | PCM.RX.CS ---
Consult Pharmacy has been consulted to manage selected antiobiotic: Vancomycin Type of Consult: Follow-up Suspected Infection: Other Labs: Sodium 140 mmol/L (136-145) 01/14/21 05:15 Potassium 4.1 mmol/L (3.5-5.1) 01/14/21 05:15 Chloride 102 mmol/L (98-107) 01/14/21 05:15 Carbon Dioxide 34.0 mmol/L (21.0-32.0) H 01/14/21 05:15 Anion Gap 4 (5-15) L 01/14/21 05:15 BUN 44 mg/dL (7-18) H 01/14/21 05:15 Creatinine 1.69 mg/dL (0.70-1.30) H 01/14/21 05:15 Est GFR (MDRD) Af Amer 50 mL/min (>60) L 01/14/21 05:15 Est GFR (MDRD) Non-Af 41 mL/min (>60) L 01/14/21 05:15 BUN/Creatinine Ratio 26.0 RATIO (10-20) H 01/14/21 05:15 Glucose 103 mg/dL (74-106) 01/14/21 05:15 Vancomycin Trough 18.1 ug/mL (5.0-15.0) H 01/14/21 15:37 Microbiology: Microbiology 01/13/21 13:45 Nasal Secretion SARS-CoV-2 Antigen (Rapid) - Final 01/07/21 11:20 Interface Orders SARS-CoV-2 Antigen (Rapid) - Final Goal Trough: 15-20 mcg/mL Pharmacy Plan for Drug Dosing: VANCOMYCIN LEVEL RECEIVED Current Vancomycin Dose: 750MG Q24H Number of Doses Received: MANY Vancomycin Level: 18.1 MG/DL Hours Since Last Dose: 23 Renal Function: SCR 1.69, CRCL 27.8 ML/MIN Renal Function Trend: STABLE Vancomycin Plan/Comments: PATIENT'S LEVEL IS THERAPEUTIC. CONTINUE CURRENT DOSING AND GET ANOTHER TROUGH IN 4 DAYS. Pending Level: 01/18/21 @ 5682 Pharmacy Service will continue to monitor and adjust dosing as required.
[2021-01-14 17:19] VITALS: BP 123/69; PULSE 70
[2021-01-15] MEDS: oxyCODONE 5 MG Tablet 10 MG PO ×5 (00:14→23:54)
[2021-01-15 06:03] VITALS: BP 127/79; PULSE 79; RESP 18; TEMP 36.8; O2SAT 96
[2021-01-15] MEDS: Lidocaine 5% Patch 2 PATCH TOPICAL (06:05)
[2021-01-15] MEDS: Polyethylene Glycol 3350 17 GM PACKET PO (06:06)
[2021-01-15] MEDS: Tamsulosin HCl 0.4 MG Capsule 0.8 MG PO ×2 (06:07→17:40)
[2021-01-15] MEDS: Citalopram 10 MG Tablet PO (06:07)
[2021-01-15] MEDS: Furosemide 40 MG Tablet PO ×2 (06:07→17:40)
[2021-01-15] MEDS: Rivaroxaban 15 MG Tablet PO (06:07)
[2021-01-15] MEDS: Acetaminophen 500 MG Tablet 1000 MG PO ×3 (06:07→21:16)
[2021-01-15] MEDS: cycloBENZAPRine HCl 10 MG Tablet PO ×3 (06:07→21:16)
[2021-01-15] MEDS: Cholecalciferol (VIT D3) 25 MCG TABLET (1,000 UNITS) PO (06:07)
[2021-01-15] MEDS: Senna/Docusate Sodium 1 Tablet 2 TABLET PO ×2 (06:07→17:39)
[2021-01-15] MEDS: SACUBITRIL/VALSARTAN 97-103 MG TABLET 1 EACH PO ×2 (06:07→17:40)
[2021-01-15] MEDS: Menthol/Lanolin/Calamine/Znox 113 GM Tube 1 APPLIC TOPICAL ×2 (06:08→17:40)
[2021-01-15] MEDS: Finasteride 5 MG Tablet PO (06:08)
[2021-01-15 07:02] VITALS: O2SAT 98
[2021-01-15] MEDS: Multivitamins,Ther W-Minerals Tablet 1 TABLET PO (08:24)
[2021-01-15] MEDS: Carvedilol 12.5 MG Tablet PO ×2 (08:24→17:41)
[2021-01-15] MEDS: Potassium Chloride Oral Tablet 10 MEQ PO ×2 (08:24→17:39)
[2021-01-15 14:25] VITALS: BP 95/59; PULSE 72; RESP 18; TEMP 36.6; O2SAT 94
[2021-01-15] MEDS: 0.9% Saline Lock 10 ML Syringe IV (16:45)
[2021-01-15 17:43] VITALS: BP 131/74; PULSE 84
[2021-01-15 19:53] VITALS: PULSE 70; O2SAT 97
[2021-01-15 23:00] VITALS: O2SAT 94
[2021-01-16 05:53] VITALS: BP 136/73; PULSE 77; RESP 18; TEMP 36.4; O2SAT 97
[2021-01-16] MEDS: Menthol/Lanolin/Calamine/Znox 113 GM Tube 1 APPLIC TOPICAL ×2 (05:56→17:27)
[2021-01-16] MEDS: 0.9% Saline Lock 10 ML Syringe IV (05:56)
[2021-01-16] MEDS: oxyCODONE 5 MG Tablet 10 MG PO ×3 (05:57→17:23)
[2021-01-16] MEDS: Polyethylene Glycol 3350 17 GM PACKET PO (05:57)
[2021-01-16] MEDS: Citalopram 10 MG Tablet PO (06:04)
[2021-01-16] MEDS: Acetaminophen 500 MG Tablet 1000 MG PO ×3 (06:04→22:38)
[2021-01-16] MEDS: Cholecalciferol (VIT D3) 25 MCG TABLET (1,000 UNITS) PO (06:05)
[2021-01-16] MEDS: Senna/Docusate Sodium 1 Tablet 2 TABLET PO ×2 (06:05→17:25)
[2021-01-16] MEDS: Tamsulosin HCl 0.4 MG Capsule 0.8 MG PO ×2 (06:05→17:27)
[2021-01-16] MEDS: SACUBITRIL/VALSARTAN 97-103 MG TABLET 1 EACH PO ×2 (06:05→17:27)
[2021-01-16] MEDS: Furosemide 40 MG Tablet PO ×2 (06:05→08:30)
[2021-01-16] MEDS: cycloBENZAPRine HCl 10 MG Tablet PO ×3 (06:06→22:38)
[2021-01-16] MEDS: Finasteride 5 MG Tablet PO (06:06)
[2021-01-16] MEDS: Lidocaine 5% Patch 2 PATCH TOPICAL (06:10)
--- NOTE | 2021-01-16 08:10 | NURSING ---
Yudi held this am d/t concerns w/ increased bruising. Pt denies any visible blood in urine or stool.
[2021-01-16] MEDS: Rivaroxaban 15 MG Tablet PO (08:30)
[2021-01-16] MEDS: Potassium Chloride Oral Tablet 10 MEQ PO ×2 (08:31→17:27)
[2021-01-16] MEDS: Carvedilol 12.5 MG Tablet PO ×2 (08:31→17:27)
[2021-01-16] MEDS: Multivitamins,Ther W-Minerals Tablet 1 TABLET PO (08:31)
--- NOTE | 2021-01-16 11:05 | NURSING ---
pt with pitting edema to BLEs & pedals. Dr hernandez updated, new order increase lasix 80mg BID, recheck BMP on tuesday. pt remains on fluid restriction.
--- NOTE | 2021-01-16 13:57 | PCM.PN.ID ---
Physical Exam Narrative Feeling better, no fever, back pain improved Const alert and no apparent distress General Appearance: cooperative Resp normal air movement and clear to auscultation bilaterally Cardio regular rate and regular rhythm GI normal to inspection, nondistended, normoactive bowel sounds Skin no rashes or lesions noted ID ID: Route of nutrition/ use of supplements: [] Nutritional Intake: [] IV Site: [] Toth Catheter: [] Assessment & Plan Assessment/Plan (1) Bacteremia due to coagulase-negative Staphylococcus: (2) Discitis: QUALIFIERS: Spinal region: lumbar Qualified Code(s): M46.46 - Discitis, unspecified, lumbar region PLAN: 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 Plan on 6 weeks iv vanc, stop date 02/10/21 with weekly labs. TTE showed no veg. Improving back pain, Cr stable, troughs at goal. Will follow
--- NOTE | 2021-01-16 14:45 | NURSING ---
pt c/o scratchy throat and raspy voice. states he gets this and has been to a doctor, but doctor told pt that it was not his sinuses. use to use nasal spray and cough drops. lungs clear to auscultation. dr hernandez updated. flonase and cepacol ordered. pt updated.
[2021-01-16 15:43] VITALS: BP 107/67; PULSE 71; RESP 16; TEMP 37.4; O2SAT 95
[2021-01-16] MEDS: Fluticasone 0.05% 1 SPRAY NASAL.SRY NASAL (15:45)
[2021-01-16] MEDS: BENZOCAINE/MENTHOL 1 LOZENGE MUCOUS MEM (15:46)
[2021-01-16] MEDS: Furosemide 80 MG Tablet PO (17:27)
[2021-01-16 17:57] VITALS: O2SAT 95
[2021-01-17] MEDS: oxyCODONE 5 MG Tablet 10 MG PO ×5 (00:52→23:38)
[2021-01-17 05:00] VITALS: BP 135/80; PULSE 71; RESP 18; TEMP 36.6; O2SAT 97
[2021-01-17] MEDS: Polyethylene Glycol 3350 17 GM PACKET PO (06:57)
[2021-01-17] MEDS: Furosemide 80 MG Tablet PO ×2 (06:57→17:45)
[2021-01-17] MEDS: Tamsulosin HCl 0.4 MG Capsule 0.8 MG PO ×2 (06:57→17:45)
[2021-01-17] MEDS: Lidocaine 5% Patch 2 PATCH TOPICAL (06:58)
[2021-01-17] MEDS: cycloBENZAPRine HCl 10 MG Tablet PO ×3 (06:58→22:24)
[2021-01-17] MEDS: Finasteride 5 MG Tablet PO (06:58)
[2021-01-17] MEDS: Cholecalciferol (VIT D3) 25 MCG TABLET (1,000 UNITS) PO (06:58)
[2021-01-17] MEDS: Citalopram 10 MG Tablet PO (06:58)
[2021-01-17] MEDS: Acetaminophen 500 MG Tablet 1000 MG PO ×3 (06:58→22:23)
[2021-01-17] MEDS: Rivaroxaban 15 MG Tablet PO (06:58)
[2021-01-17] MEDS: Senna/Docusate Sodium 1 Tablet 2 TABLET PO ×2 (06:58→17:45)
[2021-01-17] MEDS: SACUBITRIL/VALSARTAN 97-103 MG TABLET 1 EACH PO ×2 (06:58→17:45)
[2021-01-17] MEDS: Fluticasone 0.05% 1 SPRAY NASAL.SRY NASAL ×2 (06:58→17:44)
[2021-01-17] MEDS: Menthol/Lanolin/Calamine/Znox 113 GM Tube 1 APPLIC TOPICAL ×2 (06:59→17:45)
[2021-01-17] MEDS: Potassium Chloride Oral Tablet 10 MEQ PO ×2 (08:22→17:45)
[2021-01-17] MEDS: Multivitamins,Ther W-Minerals Tablet 1 TABLET PO (08:23)
[2021-01-17] MEDS: Carvedilol 12.5 MG Tablet PO ×2 (08:23→17:45)
[2021-01-17 10:00] VITALS: PULSE 49; RESP 16; O2SAT 98
[2021-01-17 11:06] VITALS: O2SAT 96
[2021-01-17 15:54] VITALS: BP 132/73; PULSE 71; RESP 16; TEMP 36.2; O2SAT 94
[2021-01-17] MEDS: 0.9% Saline Lock 10 ML Syringe IV (16:05)
--- NOTE | 2021-01-17 22:37 | NURSING ---
Pt notes air exchange is impaired but finding is not acute. Lungs clear, slightly diminished throughout lung herrera. Reports occasional dry cough. No cough noted per this nurse while in room. In no acute distress. Staff to continue to monitor.
[2021-01-18 05:42] LABS: Anion Gap 3 (5-15); BUN 47 mg/dL (7-18); Calcium,Total 8.3 mg/dL (8.5-10.1); Chloride 100 mmol/L (98-107); Creatinine, Serum 1.68 mg/dL (0.70-1.30); EST Glomerular Filtration Rate 41 mL/min (>60); Est Glom Filt Rate - Afr Amer 50 mL/min (>60); Estimated Creatinine Clearance 27.96 ml/min; Glucose 109 mg/dL (74-106); Potassium 3.5 mmol/L (3.5-5.1); Sodium Level 140 mmol/L (136-145)
[2021-01-18] MEDS: Polyethylene Glycol 3350 17 GM PACKET PO (06:54)
[2021-01-18] MEDS: Menthol/Lanolin/Calamine/Znox 113 GM Tube 1 APPLIC TOPICAL ×2 (06:54→17:33)
[2021-01-18] MEDS: cycloBENZAPRine HCl 10 MG Tablet PO ×2 (06:55→21:53)
[2021-01-18] MEDS: Tamsulosin HCl 0.4 MG Capsule 0.8 MG PO ×2 (06:56→17:33)
[2021-01-18] MEDS: Cholecalciferol (VIT D3) 25 MCG TABLET (1,000 UNITS) PO (06:56)
[2021-01-18] MEDS: Furosemide 80 MG Tablet PO ×2 (06:56→17:33)
[2021-01-18] MEDS: SACUBITRIL/VALSARTAN 97-103 MG TABLET 1 EACH PO ×2 (06:56→17:34)
[2021-01-18] MEDS: Citalopram 10 MG Tablet PO (06:57)
[2021-01-18] MEDS: Acetaminophen 500 MG Tablet 1000 MG PO ×3 (06:57→21:52)
[2021-01-18] MEDS: Finasteride 5 MG Tablet PO (06:58)
[2021-01-18] MEDS: oxyCODONE 5 MG Tablet 10 MG PO ×2 (06:58→17:32)
[2021-01-18] MEDS: Lidocaine 5% Patch 2 PATCH TOPICAL (06:58)
[2021-01-18] MEDS: Fluticasone 0.05% 1 SPRAY NASAL.SRY NASAL ×2 (06:58→17:32)
[2021-01-18 07:03] VITALS: BP 129/75; PULSE 69; RESP 20; TEMP 36.3
[2021-01-18 07:42] VITALS: O2SAT 94
[2021-01-18] MEDS: Multivitamins,Ther W-Minerals Tablet 1 TABLET PO (07:50)
[2021-01-18] MEDS: Potassium Chloride Oral Tablet 10 MEQ PO ×2 (07:50→17:33)
[2021-01-18] MEDS: Carvedilol 12.5 MG Tablet PO ×2 (07:50→17:33)
--- NOTE | 2021-01-18 07:55 | NURSING ---
Delmi Bagley this am d/t bolivar astudillo w/ blood s/p peripheral blood draw from [facility] this am which resulted in hematoma to medial aspect of forearm. Denies any discomfort.
[2021-01-18] MEDS: BENZOCAINE/MENTHOL 1 LOZENGE MUCOUS MEM (09:29)
--- NOTE | 2021-01-18 09:30 | NURSING ---
pt concerned, more sleepy than usual, wants to to try cutting back on scheduled oxyir at this time. will hold noon dose today. pt understands that he does have oxyir PRN in case pain creeps back. pt verbalized understanding.
--- NOTE | 2021-01-18 11:14 | NURSING ---
dr hernandez updated on low platelets, picc insertion site bleeding with every drsng change. aranza serna'julia and maye to start tomorrow. will update pt
[2021-01-18 14:43] VITALS: BP 119/75; PULSE 71; RESP 16; TEMP 36.7; O2SAT 97
[2021-01-18] MEDS: 0.9% Saline Lock 10 ML Syringe IV (16:10)
--- NOTE | 2021-01-18 16:17 | PCM.RX.CS ---
Consult Pharmacy has been consulted to manage selected antiobiotic: Vancomycin Type of Consult: Follow-up Prior Doses of Antibiotics Received/Current Regimen: currently on vanc 750mg IV q24h Labs: Sodium 140 mmol/L (136-145) 01/18/21 05:12 Potassium 3.5 mmol/L (3.5-5.1) 01/18/21 05:12 Chloride 100 mmol/L (98-107) 01/18/21 05:12 Carbon Dioxide 37.0 mmol/L (21.0-32.0) H 01/18/21 05:12 Anion Gap 3 (5-15) L 01/18/21 05:12 BUN 47 mg/dL (7-18) H 01/18/21 05:12 Creatinine 1.68 mg/dL (0.70-1.30) H 01/18/21 05:12 Est GFR (MDRD) Af Amer 50 mL/min (>60) L 01/18/21 05:12 Est GFR (MDRD) Non-Af 41 mL/min (>60) L 01/18/21 05:12 BUN/Creatinine Ratio 28.0 RATIO (10-20) H 01/18/21 05:12 Glucose 109 mg/dL (74-106) H 01/18/21 05:12 Vancomycin Trough 18.0 ug/mL (5.0-15.0) H 01/18/21 15:35 Microbiology: Microbiology 01/13/21 13:45 Nasal Secretion SARS-CoV-2 Antigen (Rapid) - Final 01/07/21 11:20 Interface Orders SARS-CoV-2 Antigen (Rapid) - Final Weight used for dosin.9 kg Estimated Creatinine Clearance: 28ml/min Goal Trough: 15-20 mcg/mL Pharmacy Plan for Drug Dosing: The vancomycin trough level drawn before this afternoon's dose was 18.0, which is again within goal range of 15-20. Will keep same dosing. Since the trough level has been steady the past few draws at the current dose, will not check another trough until 5 more days. Pharmacy Service will continue to monitor and adjust dosing as required. Follow-Up Labs: Trough Vancomycin Labs to be done on [date and time ordered]: 01/23/21 15:30
[2021-01-18] MEDS: Senna/Docusate Sodium 1 Tablet 2 TABLET PO (17:34)
[2021-01-18 18:20] VITALS: PULSE 78; RESP 18; O2SAT 95
[2021-01-19] MEDS: oxyCODONE 5 MG Tablet 10 MG PO ×5 (00:42→23:41)
[2021-01-19 05:00] VITALS: BP 137/80; PULSE 80; RESP 16; TEMP 36.2; O2SAT 97
[2021-01-19] MEDS: Lidocaine 5% Patch 2 PATCH TOPICAL (06:37)
[2021-01-19] MEDS: Fluticasone 0.05% 1 SPRAY NASAL.SRY NASAL ×2 (06:37→17:38)
[2021-01-19] MEDS: Tamsulosin HCl 0.4 MG Capsule 0.8 MG PO ×2 (06:38→17:38)
[2021-01-19] MEDS: Acetaminophen 500 MG Tablet 1000 MG PO ×3 (06:39→21:49)
[2021-01-19] MEDS: Citalopram 10 MG Tablet PO (06:39)
[2021-01-19] MEDS: SACUBITRIL/VALSARTAN 97-103 MG TABLET 1 EACH PO ×2 (06:39→17:38)
[2021-01-19] MEDS: Furosemide 80 MG Tablet PO ×2 (06:39→17:38)
[2021-01-19] MEDS: Cholecalciferol (VIT D3) 25 MCG TABLET (1,000 UNITS) PO (06:39)
[2021-01-19] MEDS: Finasteride 5 MG Tablet PO (06:40)
[2021-01-19] MEDS: cycloBENZAPRine HCl 10 MG Tablet PO ×3 (06:40→21:48)
[2021-01-19] MEDS: APIXABAN 2.5 MG TABLET PO ×2 (06:40→17:38)
[2021-01-19] MEDS: 0.9% Saline Lock 10 ML Syringe IV ×2 (06:43→15:27)
[2021-01-19] MEDS: Menthol/Lanolin/Calamine/Znox 113 GM Tube 1 APPLIC TOPICAL ×2 (06:44→17:39)
[2021-01-19 06:58] VITALS: O2SAT 95
[2021-01-19] MEDS: Multivitamins,Ther W-Minerals Tablet 1 TABLET PO (09:04)
[2021-01-19] MEDS: Carvedilol 12.5 MG Tablet PO ×2 (09:04→17:38)
[2021-01-19] MEDS: Potassium Chloride Oral Tablet 10 MEQ PO ×2 (09:04→17:38)
[2021-01-19 10:00] VITALS: PULSE 90; RESP 18
[2021-01-19 14:20] VITALS: BP 111/54; PULSE 70; RESP 18; TEMP 36.8; O2SAT 94
[2021-01-20 05:00] VITALS: BP 132/77; PULSE 70; RESP 16; TEMP 36.6; O2SAT 94
[2021-01-20 05:51] LABS: Anion Gap 5 (5-15); BUN 41 mg/dL (7-18); BUN/Creat Ratio 25.6 RATIO (10-20); Calcium,Total 8.7 mg/dL (8.5-10.1); Chloride 99 mmol/L (98-107); EST Glomerular Filtration Rate 44 mL/min (>60); Est Glom Filt Rate - Afr Amer 53 mL/min (>60); Estimated Creatinine Clearance 29.36 ml/min; Glucose 102 mg/dL (74-106); Potassium 3.5 mmol/L (3.5-5.1); Sodium Level 140 mmol/L (136-145)
[2021-01-20] MEDS: Lidocaine 5% Patch 2 PATCH TOPICAL (06:14)
[2021-01-20] MEDS: Furosemide 80 MG Tablet PO ×2 (06:15→18:03)
[2021-01-20] MEDS: Fluticasone 0.05% 1 SPRAY NASAL.SRY NASAL ×2 (06:15→18:03)
[2021-01-20] MEDS: SACUBITRIL/VALSARTAN 97-103 MG TABLET 1 EACH PO ×2 (06:15→18:03)
[2021-01-20] MEDS: Finasteride 5 MG Tablet PO (06:15)
[2021-01-20] MEDS: oxyCODONE 5 MG Tablet 10 MG PO ×3 (06:15→23:40)
[2021-01-20] MEDS: cycloBENZAPRine HCl 10 MG Tablet PO ×3 (06:15→21:29)
[2021-01-20] MEDS: Tamsulosin HCl 0.4 MG Capsule 0.8 MG PO ×2 (06:15→18:01)
[2021-01-20] MEDS: Acetaminophen 500 MG Tablet 1000 MG PO ×3 (06:16→21:29)
[2021-01-20] MEDS: APIXABAN 2.5 MG TABLET PO ×2 (06:16→18:01)
[2021-01-20] MEDS: Cholecalciferol (VIT D3) 25 MCG TABLET (1,000 UNITS) PO (06:16)
[2021-01-20] MEDS: Citalopram 10 MG Tablet PO (06:16)
[2021-01-20] MEDS: Menthol/Lanolin/Calamine/Znox 113 GM Tube 1 APPLIC TOPICAL ×2 (06:32→18:01)
[2021-01-20] MEDS: Potassium Chloride Oral Tablet 10 MEQ PO ×2 (08:36→18:01)
[2021-01-20] MEDS: Carvedilol 12.5 MG Tablet PO ×2 (08:36→18:01)
[2021-01-20] MEDS: Multivitamins,Ther W-Minerals Tablet 1 TABLET PO (08:36)
[2021-01-20 13:51] VITALS: BP 119/67; PULSE 75; RESP 18; TEMP 36.4; O2SAT 96
[2021-01-20] MEDS: 0.9% Saline Lock 10 ML Syringe IV (15:15)
--- NOTE | 2021-01-20 16:58 | CHAPLAIN ---
Type of Pastoral Visit ___ Initial Visit _x__ Follow-up Visit ___ On-call Visit ___ General Patient Visit ___ Spiritual Assessment ___ Family Conference ___ Bereavement ___ Rapid Response ___ Code Blue ___ Other (describe below) Pastoral Care Referral From _x__ Patient ___ Family ___ Nurse ___ Physician ___ Media Law Faculty Member ___ Records Clerk ___ Other (describe below) Sacrament/Intervention _x__ Active listening ___ Anointing ___ Catholic ___ Bereavement ___ Communion ___ Sandrine exploration ___ ___ Life review _x__ Prayer ___ Reconciliation ___ Sacrament of Sick _x__ Supportive presence ___ Wedding ___ Other (describe below) Pastoral Comments
[2021-01-20] MEDS: Senna/Docusate Sodium 1 Tablet 2 TABLET PO (18:03)
[2021-01-21 05:53] VITALS: BP 127/68; PULSE 68; RESP 18; TEMP 36.8; O2SAT 98
[2021-01-21] MEDS: Tamsulosin HCl 0.4 MG Capsule 0.8 MG PO ×2 (05:54→17:09)
[2021-01-21] MEDS: oxyCODONE 5 MG Tablet 10 MG PO ×4 (05:54→23:30)
[2021-01-21] MEDS: Cholecalciferol (VIT D3) 25 MCG TABLET (1,000 UNITS) PO (05:55)
[2021-01-21] MEDS: Acetaminophen 500 MG Tablet 1000 MG PO ×3 (05:55→20:51)
[2021-01-21] MEDS: Polyethylene Glycol 3350 17 GM PACKET PO (05:55)
[2021-01-21] MEDS: cycloBENZAPRine HCl 10 MG Tablet PO ×3 (05:55→20:51)
[2021-01-21] MEDS: SACUBITRIL/VALSARTAN 97-103 MG TABLET 1 EACH PO ×2 (05:55→17:09)
[2021-01-21] MEDS: Citalopram 10 MG Tablet PO (05:55)
[2021-01-21] MEDS: APIXABAN 2.5 MG TABLET PO ×2 (05:55→17:09)
[2021-01-21] MEDS: Furosemide 80 MG Tablet PO ×2 (05:55→14:57)
[2021-01-21] MEDS: Senna/Docusate Sodium 1 Tablet 2 TABLET PO ×2 (05:56→17:08)
[2021-01-21] MEDS: Finasteride 5 MG Tablet PO (05:56)
[2021-01-21] MEDS: Lidocaine 5% Patch 2 PATCH TOPICAL (06:02)
[2021-01-21] MEDS: Fluticasone 0.05% 1 SPRAY NASAL.SRY NASAL ×2 (06:03→17:08)
[2021-01-21] MEDS: Menthol/Lanolin/Calamine/Znox 113 GM Tube 1 APPLIC TOPICAL ×2 (06:09→17:10)
[2021-01-21 06:12] LABS: Absolute Lymphocyte Count 0.65 X10^3/uL (0.83-4.51); Absolute Neutrophil Count 1.8 X10^3/uL (2.0-7.7); Basophil# 0.04 X10^3/uL; Basophil% 1.3 % (0-1); Eosinophil# 0.11 X10^3/uL; Eosinophils% 3.4 % (0-5); Hematocrit 30.1 % (40-54); Hemoglobin 9.5 g/dL (13.0-16.5); Lymphocyte # 0.65 X10^3/ul (0.83-4.51); Lymphocyte % 20.3 % (19-41); Mean Corp Hgb Conc 31.6 g/dL (32-36); Mean Corpuscular Hgb 33.3 pg (27.0-32.0); Mean Corpuscular Volume 105.6 fL (80-94); Mean Platelet Vol. 11.3 fl (6.2-12.0); Monocyte# 0.58 X10^3/uL; Monocyte% 18.1 % (0-10); NRBC Flagged by Analyzer 0 % (0-5); Neutrophil % 56.3 % (47-70); POSITIVE COUNT YES; Platelet Count 68 K/mm3 (150-450); RBC Distribution Width CV 14.5 % (11.6-14.6); RBC Distribution Width SD 55.5 fl (35.1-43.9); Red Blood Count 2.85 M/mm3 (4.6-6.2); White Blood Count 3.2 K/mm3 (4.4-11.0)
[2021-01-21 06:30] LABS: Anion Gap 7 (5-15); BUN 41 mg/dL (7-18); BUN/Creat Ratio 26.6 RATIO (10-20); Calcium,Total 8.4 mg/dL (8.5-10.1); Chloride 100 mmol/L (98-107); Creatinine, Serum 1.54 mg/dL (0.70-1.30); EST Glomerular Filtration Rate 46 mL/min (>60); Est Glom Filt Rate - Afr Amer 55 mL/min (>60); Estimated Creatinine Clearance 30.51 ml/min; Glucose 121 mg/dL (74-106); Potassium 3.6 mmol/L (3.5-5.1); Sodium Level 140 mmol/L (136-145)
[2021-01-21] MEDS: oxyCODONE 5 MG Tablet PO (09:51)
[2021-01-21] MEDS: Multivitamins,Ther W-Minerals Tablet 1 TABLET PO (09:51)
[2021-01-21] MEDS: Potassium Chloride Oral Tablet 10 MEQ PO ×2 (09:51→17:09)
[2021-01-21] MEDS: Carvedilol 12.5 MG Tablet PO ×2 (09:51→17:09)
[2021-01-21 10:32] VITALS: PULSE 64; O2SAT 94
[2021-01-21 14:04] VITALS: BP 104/61; PULSE 70; RESP 17; TEMP 36.4; O2SAT 93
[2021-01-21] MEDS: 0.9% Saline Lock 10 ML Syringe IV (15:42)
[2021-01-22 05:24] VITALS: BP 101/61; PULSE 71; RESP 18; TEMP 36.4; O2SAT 96
[2021-01-22] MEDS: Fluticasone 0.05% 1 SPRAY NASAL.SRY NASAL ×2 (05:25→17:35)
[2021-01-22] MEDS: Furosemide 80 MG Tablet PO ×2 (05:26→13:42)
[2021-01-22] MEDS: Polyethylene Glycol 3350 17 GM PACKET PO (05:26)
[2021-01-22] MEDS: cycloBENZAPRine HCl 10 MG Tablet PO ×3 (05:26→21:49)
[2021-01-22] MEDS: SACUBITRIL/VALSARTAN 97-103 MG TABLET 1 EACH PO ×2 (05:26→17:35)
[2021-01-22] MEDS: Cholecalciferol (VIT D3) 25 MCG TABLET (1,000 UNITS) PO (05:26)
[2021-01-22] MEDS: Finasteride 5 MG Tablet PO (05:26)
[2021-01-22] MEDS: oxyCODONE 5 MG Tablet 10 MG PO ×4 (05:26→23:44)
[2021-01-22] MEDS: Lidocaine 5% Patch 2 PATCH TOPICAL (05:27)
[2021-01-22] MEDS: Acetaminophen 500 MG Tablet 1000 MG PO ×3 (05:27→21:49)
[2021-01-22] MEDS: Tamsulosin HCl 0.4 MG Capsule 0.8 MG PO ×2 (05:27→17:35)
[2021-01-22] MEDS: APIXABAN 2.5 MG TABLET PO ×2 (05:27→17:36)
[2021-01-22] MEDS: Citalopram 10 MG Tablet PO (05:27)
[2021-01-22] MEDS: Senna/Docusate Sodium 1 Tablet 2 TABLET PO (05:28)
[2021-01-22] MEDS: Menthol/Lanolin/Calamine/Znox 113 GM Tube 1 APPLIC TOPICAL ×2 (05:33→17:38)
[2021-01-22] MEDS: Potassium Chloride Oral Tablet 10 MEQ PO ×2 (08:13→17:36)
[2021-01-22] MEDS: Multivitamins,Ther W-Minerals Tablet 1 TABLET PO (08:13)
[2021-01-22] MEDS: Carvedilol 12.5 MG Tablet PO ×2 (08:13→17:36)
[2021-01-22 08:24] VITALS: PULSE 73; RESP 16; O2SAT 93
[2021-01-22] MEDS: Albuterol 2.5 MG/3 ML VIAL.NEB. INHALATION ×2 (08:24→20:15)
[2021-01-22 13:40] VITALS: BP 117/69; PULSE 70; RESP 16; TEMP 36.3; O2SAT 96
[2021-01-22] MEDS: 0.9% Saline Lock 10 ML Syringe IV ×2 (15:59→17:37)
[2021-01-22 20:15] VITALS: PULSE 72; RESP 16
[2021-01-23] VITALS (7 sets, daily range): BP systolic 106–126; BP diastolic 59–73; PULSE 65–73; RESP 16–20; TEMP 36.6–36.8; O2SAT 95–97
[2021-01-23 05:32] LABS: Hematocrit 33.1 % (40-54); Hemoglobin 10.3 g/dL (13.0-16.5)
[2021-01-23] MEDS: 0.9% Saline Lock 10 ML Syringe IV ×2 (06:05→18:07)
[2021-01-23] MEDS: Lidocaine 5% Patch 2 PATCH TOPICAL (06:35)
[2021-01-23] MEDS: Fluticasone 0.05% 1 SPRAY NASAL.SRY NASAL ×2 (06:38→18:09)
[2021-01-23] MEDS: Citalopram 10 MG Tablet PO (06:39)
[2021-01-23] MEDS: Polyethylene Glycol 3350 17 GM PACKET PO (06:39)
[2021-01-23] MEDS: SACUBITRIL/VALSARTAN 97-103 MG TABLET 1 EACH PO ×2 (06:40→18:10)
[2021-01-23] MEDS: Tamsulosin HCl 0.4 MG Capsule 0.8 MG PO ×2 (06:40→18:09)
[2021-01-23] MEDS: APIXABAN 2.5 MG TABLET PO ×2 (06:40→18:10)
[2021-01-23] MEDS: cycloBENZAPRine HCl 10 MG Tablet PO ×3 (06:40→22:40)
[2021-01-23] MEDS: Finasteride 5 MG Tablet PO (06:41)
[2021-01-23] MEDS: Furosemide 80 MG Tablet PO ×2 (06:41→13:31)
[2021-01-23] MEDS: Cholecalciferol (VIT D3) 25 MCG TABLET (1,000 UNITS) PO (06:42)
[2021-01-23] MEDS: Acetaminophen 500 MG Tablet 1000 MG PO ×3 (06:42→22:40)
[2021-01-23] MEDS: oxyCODONE 5 MG Tablet 10 MG PO ×4 (06:46→23:30)
[2021-01-23] MEDS: Menthol/Lanolin/Calamine/Znox 113 GM Tube 1 APPLIC TOPICAL ×2 (06:51→18:10)
[2021-01-23] MEDS: Multivitamins,Ther W-Minerals Tablet 1 TABLET PO (07:58)
[2021-01-23] MEDS: Carvedilol 12.5 MG Tablet PO ×2 (07:58→18:09)
[2021-01-23] MEDS: Potassium Chloride Oral Tablet 10 MEQ PO ×2 (07:58→18:09)
[2021-01-23] MEDS: Albuterol 2.5 MG/3 ML VIAL.NEB. INHALATION ×2 (14:44→23:13)
[2021-01-23 16:13] LABS: Vancomycin, Trough Level 20.2 ug/mL (5.0-15.0)
--- NOTE | 2021-01-23 23:25 | NURSING ---
Aerosol tx finished and stopped per this nurse as RT was called to another unit. Currently connected to O2 at 2 lpm via nc.
--- NOTE | 2021-01-24 00:17 | CPS ---
Post assessment not complete due to ER work flow. RN notified in regards to pt.'s breathing tx., and she is going to situate pt. when tx. is complete.
[2021-01-24 06:47] VITALS: BP 146/86; PULSE 71; RESP 20; TEMP 36.4; O2SAT 95
[2021-01-24] MEDS: Fluticasone 0.05% 1 SPRAY NASAL.SRY NASAL ×2 (06:49→17:33)
[2021-01-24] MEDS: oxyCODONE 5 MG Tablet 10 MG PO ×2 (06:49→11:50)
[2021-01-24] MEDS: APIXABAN 2.5 MG TABLET PO ×2 (06:50→17:33)
[2021-01-24] MEDS: Tamsulosin HCl 0.4 MG Capsule 0.8 MG PO ×2 (06:50→17:33)
[2021-01-24] MEDS: cycloBENZAPRine HCl 10 MG Tablet PO (06:50)
[2021-01-24] MEDS: Finasteride 5 MG Tablet PO (06:50)
[2021-01-24] MEDS: Acetaminophen 500 MG Tablet 1000 MG PO ×3 (06:51→21:14)
[2021-01-24] MEDS: Cholecalciferol (VIT D3) 25 MCG TABLET (1,000 UNITS) PO (06:51)
[2021-01-24] MEDS: SACUBITRIL/VALSARTAN 97-103 MG TABLET 1 EACH PO ×2 (06:51→17:33)
[2021-01-24] MEDS: Citalopram 10 MG Tablet PO (06:51)
[2021-01-24] MEDS: Lidocaine 5% Patch 2 PATCH TOPICAL (06:52)
[2021-01-24] MEDS: Senna/Docusate Sodium 1 Tablet 2 TABLET PO ×2 (06:53→17:34)
[2021-01-24] MEDS: Furosemide 100 MG/10 ML Vial 80 MG IV ×2 (06:55→13:28)
[2021-01-24] MEDS: Menthol/Lanolin/Calamine/Znox 113 GM Tube 1 APPLIC TOPICAL ×2 (06:55→17:34)
[2021-01-24 07:11] LABS: Vancomycin, Random Level 17.9 ug/mL (0.0-15.0)
[2021-01-24 07:12] LABS: Anion Gap 3 (5-15); BUN 42 mg/dL (7-18); BUN/Creat Ratio 25.1 RATIO (10-20); Calcium,Total 8.8 mg/dL (8.5-10.1); Chloride 101 mmol/L (98-107); Creatinine, Serum 1.67 mg/dL (0.70-1.30); EST Glomerular Filtration Rate 42 mL/min (>60); Est Glom Filt Rate - Afr Amer 50 mL/min (>60); Estimated Creatinine Clearance 28.13 ml/min; Glucose 111 mg/dL (74-106); Potassium 4.2 mmol/L (3.5-5.1); Sodium Level 142 mmol/L (136-145)
--- NOTE | 2021-01-24 08:13 | NURSING ---
Addendum entered by Erika Kunz 01/24/21 15:10: dr hernandez updated, new order to decrease oxyir 5mg q6 hr scheduled and changed flexeril to PRN. pt very agreeable to this. Original Note: Left vm for [facility] palliative staff to question if DOCTOR OF CHIROPRACTIC could visit pt at the beginning of next week to address his concerns w/ drowsiness. Question if dose(s) of Oxycodone and Flexeril may need adjusted d/t improved pain control and above reported symptoms. Given phone# to nurses station to return call for any questions or concerns.
[2021-01-24] MEDS: Carvedilol 12.5 MG Tablet PO ×2 (09:14→17:33)
[2021-01-24] MEDS: Potassium Chloride Oral Tablet 10 MEQ PO ×2 (09:15→17:33)
[2021-01-24] MEDS: Multivitamins,Ther W-Minerals Tablet 1 TABLET PO (09:15)
[2021-01-24 09:18] VITALS: BP 112/59; PULSE 91
[2021-01-24] MEDS: 0.9% Saline Lock 10 ML Syringe IV ×3 (13:29→21:14)
[2021-01-24 15:08] VITALS: BP 138/72; PULSE 69; RESP 18; TEMP 36.6; O2SAT 96
[2021-01-24] MEDS: oxyCODONE 5 MG Tablet PO ×2 (17:30→23:31)
[2021-01-24] MEDS: Vancomycin IV 500 MG/100 ML BAG 100 MG IV (19:25)
[2021-01-24 20:21] VITALS: PULSE 70; RESP 18
[2021-01-24] MEDS: Albuterol 2.5 MG/3 ML VIAL.NEB. INHALATION (20:21)
[2021-01-25 04:58] VITALS: BP 117/69; PULSE 67; RESP 18; TEMP 36.6; O2SAT 95
[2021-01-25] MEDS: Fluticasone 0.05% 1 SPRAY NASAL.SRY NASAL ×2 (05:03→16:57)
[2021-01-25] MEDS: Lidocaine 5% Patch 2 PATCH TOPICAL (05:03)
[2021-01-25] MEDS: Furosemide 100 MG/10 ML Vial 80 MG IV ×2 (05:05→14:32)
[2021-01-25] MEDS: Tamsulosin HCl 0.4 MG Capsule 0.8 MG PO ×2 (05:05→16:58)
[2021-01-25] MEDS: Acetaminophen 500 MG Tablet 1000 MG PO ×3 (05:05→19:25)
[2021-01-25] MEDS: SACUBITRIL/VALSARTAN 97-103 MG TABLET 1 EACH PO ×2 (05:05→16:58)
[2021-01-25] MEDS: Citalopram 10 MG Tablet PO (05:05)
[2021-01-25] MEDS: APIXABAN 2.5 MG TABLET PO ×2 (05:06→16:58)
[2021-01-25] MEDS: Finasteride 5 MG Tablet PO (05:06)
[2021-01-25] MEDS: Menthol/Lanolin/Calamine/Znox 113 GM Tube 1 APPLIC TOPICAL ×2 (05:07→16:59)
[2021-01-25] MEDS: oxyCODONE 5 MG Tablet PO ×3 (05:09→16:58)
[2021-01-25] MEDS: Cholecalciferol (VIT D3) 25 MCG TABLET (1,000 UNITS) PO (05:09)
[2021-01-25] MEDS: Senna/Docusate Sodium 1 Tablet 2 TABLET PO (05:10)
[2021-01-25] MEDS: 0.9% Saline Lock 10 ML Syringe IV ×3 (05:16→19:49)
[2021-01-25 07:39] VITALS: BP 132/85; PULSE 77
[2021-01-25] MEDS: Carvedilol 12.5 MG Tablet PO ×2 (07:44→16:58)
[2021-01-25] MEDS: Multivitamins,Ther W-Minerals Tablet 1 TABLET PO (07:44)
[2021-01-25] MEDS: Potassium Chloride Oral Tablet 10 MEQ PO ×2 (07:44→16:58)
[2021-01-25] MEDS: cycloBENZAPRine HCl 10 MG Tablet PO (07:46)
[2021-01-25 07:53] VITALS: PULSE 75; RESP 16
[2021-01-25] MEDS: Albuterol 2.5 MG/3 ML VIAL.NEB. INHALATION ×2 (07:53→22:31)
[2021-01-25 10:34] LABS: Anion Gap 1 (5-15); BUN 41 mg/dL (7-18); BUN/Creat Ratio 23.8 RATIO (10-20); Calcium,Total 8.9 mg/dL (8.5-10.1); Chloride 99 mmol/L (98-107); Creatinine, Serum 1.72 mg/dL (0.70-1.30); EST Glomerular Filtration Rate 40 mL/min (>60); Est Glom Filt Rate - Afr Amer 49 mL/min (>60); Estimated Creatinine Clearance 27.31 ml/min; Glucose 108 mg/dL (74-106); Sodium Level 140 mmol/L (136-145)
[2021-01-25] MEDS: Polyethylene Glycol 3350 17 GM PACKET PO (14:34)
[2021-01-25 14:50] VITALS: BP 119/70; PULSE 70; RESP 16; TEMP 37; O2SAT 92
[2021-01-25] MEDS: Vancomycin IV 500 MG/100 ML BAG 100 MG IV (19:26)
[2021-01-25 22:32] VITALS: PULSE 72; RESP 16
[2021-01-26] MEDS: oxyCODONE 5 MG Tablet PO ×4 (00:21→17:36)
[2021-01-26] MEDS: Tamsulosin HCl 0.4 MG Capsule 0.8 MG PO ×2 (05:27→17:36)
[2021-01-26] MEDS: Citalopram 10 MG Tablet PO (05:27)
[2021-01-26] MEDS: Acetaminophen 500 MG Tablet 1000 MG PO ×3 (05:27→20:25)
[2021-01-26] MEDS: SACUBITRIL/VALSARTAN 97-103 MG TABLET 1 EACH PO ×2 (05:28→17:36)
[2021-01-26] MEDS: Cholecalciferol (VIT D3) 25 MCG TABLET (1,000 UNITS) PO (05:28)
[2021-01-26] MEDS: Furosemide 100 MG/10 ML Vial 80 MG IV ×2 (05:28→13:12)
[2021-01-26] MEDS: 0.9% Saline Lock 10 ML Syringe IV ×2 (05:28→13:12)
[2021-01-26] MEDS: Finasteride 5 MG Tablet PO (05:29)
[2021-01-26] MEDS: APIXABAN 2.5 MG TABLET PO ×2 (05:29→17:36)
[2021-01-26] MEDS: Lidocaine 5% Patch 2 PATCH TOPICAL (05:30)
[2021-01-26] MEDS: Fluticasone 0.05% 1 SPRAY NASAL.SRY NASAL ×2 (05:30→17:36)
[2021-01-26] MEDS: Senna/Docusate Sodium 1 Tablet 2 TABLET PO (05:30)
[2021-01-26] MEDS: Menthol/Lanolin/Calamine/Znox 113 GM Tube 1 APPLIC TOPICAL ×2 (05:31→17:37)
[2021-01-26 06:31] LABS: Anion Gap 4 (5-15); BUN 36 mg/dL (7-18); BUN/Creat Ratio 24.3 RATIO (10-20); Calcium,Total 8.8 mg/dL (8.5-10.1); Chloride 100 mmol/L (98-107); Creatinine, Serum 1.48 mg/dL (0.70-1.30); EST Glomerular Filtration Rate 48 mL/min (>60); Est Glom Filt Rate - Afr Amer 58 mL/min (>60); Estimated Creatinine Clearance 31.74 ml/min; Glucose 103 mg/dL (74-106); Potassium 3.3 mmol/L (3.5-5.1); Sodium Level 141 mmol/L (136-145)
[2021-01-26 06:48] VITALS: O2SAT 92
[2021-01-26 07:57] VITALS: BP 142/65; PULSE 91; RESP 18; TEMP 36.6; O2SAT 94
[2021-01-26] MEDS: Multivitamins,Ther W-Minerals Tablet 1 TABLET PO (07:59)
[2021-01-26] MEDS: Potassium Chloride Oral Tablet 20 MEQ PO ×2 (07:59→17:37)
[2021-01-26] MEDS: Carvedilol 12.5 MG Tablet PO (08:00)
[2021-01-26 09:32] VITALS: PULSE 85; RESP 18
[2021-01-26 14:44] VITALS: BP 96/55; PULSE 70; RESP 16; TEMP 36.1; O2SAT 96
--- NOTE | 2021-01-26 16:48 | PN.PALL_ITS ---
Subjective Subjective Nursing called this morning and stated patient complaining of increased fatigue. However, upon my assessment this evening nurse reports he is doing fantastic. He is ambulating with his walker longer distances around the unit, smiling, and not asking for breakthrough pain medication. His pain has been improved, the highest he is rating it is a 5 out of 10. It appears he is rating pain 3/10 for the last 48 hours. Current pain medications include: acetaminophen 1 g 3 times daily lidocaine patch 2 patches daily oxycodone 5 mg p.o. every 6 hours scheduled oxycodone 5 to 10 mg p.o. every 4 hours as needed for breakthrough pain cyclobenzaprine 10 mg p.o. 3 times daily as needed Ray reports his pain has improved, he thinks he did a little bit too much today with walking around, however pain is not too bad. He is rating it a 4 out of 10. We discussed titrating his pain medications, I do not quite think he is at the point where we should take him off scheduled oxycodone. He reports his voice gets kind of scratchy and breathing treatments help with this. He denies any shortness of breath or chest pain. Discussed with his primary nurse. He denies feeling too tired. He is having multiple bowel movements a day but they are formed. Had a little bit of abdominal cramping today in the lower quadrants but that has resolved. Objective Data Objective Data Vital Signs: Vital Signs Temp Pulse Resp BP Pulse Ox 96.9 F L 70 16 96/55 L 96 01/26/21 14:44 01/26/21 14:44 01/26/21 14:44 01/26/21 14:44 01/26/21 14:44 Oxygen Flow Rate (L/min) 2 Oxygen Delivery Method Nasal Cannula Weight: 77.309 kg Body Mass Index (BMI) 29.7 Intake & Output: Intake and Output for Last 24 Hours 01/24/21 01/25/21 01/26/21 23:59 23:59 23:59 Intake Total 1040 / 1040 1140.02 / 1140.02 420 / 420 Output Total 1375 / 1375 950 / 950 Balance -335 / -335 190.02 / 190.02 420 / 420 Lab / Micro Data Result Diagrams: 01/23/21 05:10 01/26/21 05:25 Labs: Laboratory Results - last 24 hr 01/26/21 05:25: Sodium 141, Potassium 3.3 L, Chloride 100, Carbon Dioxide 37.0 H , Anion Gap 4 L, BUN 36 H, Creatinine 1.48 H, Estim Creat Clear Calc 31.74, Est GFR (MDRD) Af Amer 58 L, Est GFR (MDRD) Non-Af 48 L, BUN/Creatinine Ratio 24.3 H , Glucose 103, Calcium 8.8 Micro: Microbiology 01/13/21 13:45 Nasal Secretion SARS-CoV-2 Antigen (Rapid) - Final 01/07/21 11:20 Interface Orders SARS-CoV-2 Antigen (Rapid) - Final Physical Exam Narrative sitting in chair, he is upbeat and talkative Const alert, oriented x3 and no apparent distress General Appearance: cooperative Orientation / Consciousness: awake, oriented to person, oriented to place and oriented to time HEENT normocephalic and head/scalp atraumatic Neck supple General: trachea midline Resp normal respiratory effort and normal air movement Effort and Inspection: symmetric chest movement Auscultation: clear to auscultation bilaterally and diminished lung sounds Cardio regular rate, S1 normal heart sound and S2 normal heart sound Rhythm: abnormal rhythm GI normal to inspection, nondistended, normoactive bowel sounds Inspection: visible herniation Auscultation: normoactive bowel sounds Palpation: soft Back/Spine General Back: tenderness Lumbar Spine / Lower Back: ROM limited Extremity General Extremity: edema bilateral (trace edema KEVIN wraps in place); Negative for cyanosis Skin no rashes or lesions noted General Skin Exam: ecchymosis Neuro CN's II-XII intact bilaterally and no focal motor deficits Psych mental status grossly normal Insight: insight good Judgement: judgement good Assessment & Plan Assessment/Plan (1) Intractable low back pain: (2) Muscle spasm: (3) Discitis: QUALIFIERS: Spinal region: lumbar Qualified Code(s): M46.46 - Discitis, unspecified, lumbar region (4) Weakness: (5) Paroxysmal atrial fibrillation: PLAN: 85-year-old male with several recent hospital and TCU admissions, seen today for palliative care f/u due to recurrent intractable low back pain and debility. He was originally admitted to palliative care September 2020 for symptom management of shortness of breath and weakness r/t CHF. 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 1. Intractable low back pain 2/2 MRSE bacteremia L4-L5 discitis: improving 01/01: added scheduled oxycodone 5mg q6h 01/06: increased oxycodone PRN dose to 1-2 tabs (5 to 10 mg) every 4 hours as needed for breakthrough pain. 01/08: increased scheduled dose oxycodone to 10 mg q6 hours due to poor pain control, as discitis subsides we can wean him down off of narcotics. 01/13: improvement as of today. able to walk farther. not as sore. not always grimacing w/every movement. No changes to meds at this time. Hold off on dexa. Dr. Luo possibly in later today? 01/26: steady improvement with pain, avg rating 4/10. improved ambulation. Used one PRN oxy in the last 5 days. *continue his current pain medications (oxycodone 5 mg q6h scheduled) with prn dose the same. *f/u in 1 week. Please call palliative with questions or concerns *stop date on vanco 02/10 per ID. Other Current meds: Lidocaine patches, Tylenol 1Gm TID scheduled, cyclobenzaprine 10 mg TID prn. Steroid injection by Dr. Luo. 2. Weakness: Improving. Ambulating further distances, tolerating fairly well. TCU for rehab. We will continue to follow. 3. Shortness of breath: stable. Continues to wear O2 2L prn. 01/24 attending increased lasix IV to 80mg BID d/t increased edema, 4. Atrial flutter/recent COVID-19/CKD/s/p MVR, s/p CABG BPH/macrocytosis/leukopenia/thrombocytopenia/systolic CHF/PAF, recent respiratory failure with hypoxia: Complicates overall care, management, recovery, and prognosis. Patient to follow-up with his specialists once discharged from TCU. [facility] to do hematological workup. Thank you for the opportunity to participate in this patient's care, please do not hesitate to contact [facility] with any further questions or concerns. Palliative direct line is [phone]. We will follow up as outpatient and PRN while in the hospital. Greater than 50% of F2F visit dedicated to education and counseling of palliative care services, medications, comorbid conditions and potential assistance with management, and plan of care moving forward. Start time: 164 End time: 1722
[2021-01-26 19:22] LABS: Vancomycin, Trough Level 14.5 ug/mL (5.0-15.0)
--- NOTE | 2021-01-26 19:28 | PCM.RX.CS ---
Consult Pharmacy has been consulted to manage selected antiobiotic: Vancomycin Prior Doses of Antibiotics Received/Current Regimen: Medications Vancomycin HCl () 500 mg in 100 mls @ 100 mls/hr IV Q24H LUIS Stop: 02/10/21 19:59 Last Admin: 01/25/21 20:26 Dose: Infused Documented by: Labs: Sodium 141 mmol/L (136-145) 01/26/21 05:25 Potassium 3.3 mmol/L (3.5-5.1) L 01/26/21 05:25 Chloride 100 mmol/L (98-107) 01/26/21 05:25 Carbon Dioxide 37.0 mmol/L (21.0-32.0) H 01/26/21 05:25 Anion Gap 4 (5-15) L 01/26/21 05:25 BUN 36 mg/dL (7-18) H 01/26/21 05:25 Creatinine 1.48 mg/dL (0.70-1.30) H 01/26/21 05:25 Est GFR (MDRD) Af Amer 58 mL/min (>60) L 01/26/21 05:25 Est GFR (MDRD) Non-Af 48 mL/min (>60) L 01/26/21 05:25 BUN/Creatinine Ratio 24.3 RATIO (10-20) H 01/26/21 05:25 Glucose 103 mg/dL (74-106) 01/26/21 05:25 Vancomycin Trough 14.5 ug/mL (5.0-15.0) 01/26/21 18:24 Random Vancomycin 17.9 ug/mL (0.0-15.0) H 01/24/21 06:17 Microbiology: Microbiology 01/13/21 13:45 Nasal Secretion SARS-CoV-2 Antigen (Rapid) - Final 01/07/21 11:20 Interface Orders SARS-CoV-2 Antigen (Rapid) - Final Goal Trough: 15-20 mcg/mL Pharmacy Plan for Drug Dosing: Trough is slightly below goal, however, current level is a little late (25 hours) and 7/10 dose was given hours late and moved the dosing off schedule. Current level is quite good considering those 2 issues so recommend to continue current dose and re-check once more in 48 hours to ensure level is holding at steady state in goal range for indication. Pharmacy Service will continue to monitor and adjust dosing as required. Follow-Up Labs: Trough Vancomycin - 01/28 @ 1830
--- NOTE | 2021-01-26 19:51 | PN.TCU_ITS ---
Subjective Subjective Resident seen, examined for regulatory visit. He had a good day, his low back pain is much better controlled. He has no new problems, concerns, issues, complaints. Objective Data Objective Data Vital Signs: Vital Signs Temp Pulse Resp BP Pulse Ox 96.9 F L 70 16 96/55 L 96 01/26/21 14:44 01/26/21 14:44 01/26/21 14:44 01/26/21 14:44 01/26/21 14:44 Oxygen Flow Rate (L/min) 2 Oxygen Delivery Method Nasal Cannula Weight: 77.309 kg Body Mass Index (BMI) 29.7 Intake & Output: Intake and Output for Last 24 Hours 01/24/21 01/25/21 01/26/21 23:59 23:59 23:59 Intake Total 1040 / 1040 1140.02 / 1140.02 640 / 640 Output Total 1375 / 1375 950 / 950 Balance -335 / -335 190.02 / 190.02 640 / 640 Lab / Micro Data Result Diagrams: 01/23/21 05:10 01/26/21 05:25 Labs: Laboratory Results - last 24 hr 01/26/21 05:25: Sodium 141, Potassium 3.3 L, Chloride 100, Carbon Dioxide 37.0 H , Anion Gap 4 L, BUN 36 H, Creatinine 1.48 H, Estim Creat Clear Calc 31.74, Est GFR (MDRD) Af Amer 58 L, Est GFR (MDRD) Non-Af 48 L, BUN/Creatinine Ratio 24.3 H , Glucose 103, Calcium 8.8 01/26/21 18:24: Vancomycin Trough 14.5 Micro: Microbiology 01/13/21 13:45 Nasal Secretion SARS-CoV-2 Antigen (Rapid) - Final 01/07/21 11:20 Interface Orders SARS-CoV-2 Antigen (Rapid) - Final Physical Exam Const alert and oriented x3 General Appearance: cooperative HEENT normocephalic Eyes PERRL and EOMs intact bilaterally Neck supple, no JVD and no carotid bruits Resp normal respiratory effort, normal air movement and clear to auscultation bilaterally Cardio regular rate and regular rhythm GI normal to inspection, nondistended, normoactive bowel sounds, non-tender and non-distended Extremity normal capillary refill Extremity Narrative: Right upper extremity PICC line. General Extremity: Negative for edema Skin no rashes or lesions noted General Skin Exam: no breakdown Psych affect normal Appearance: appropriate Assessment & Plan Assessment/Plan (1) Debility: (2) Bacteremia due to coagulase-negative Staphylococcus: (3) Discitis: QUALIFIERS: Spinal region: lumbar Qualified Code(s): M46.46 - Discitis, unspecified, lumbar region (4) Coronary artery disease: (5) Chronic systolic congestive heart failure: (6) Depression: (7) Hypertension: (8) Hearing loss: (9) Benign prostatic hyperplasia: (10) Muscle spasm: PLAN: 85 year old male with below past medical history hospitalized for L4-5 discitis, MRSE bacteremia, admitted to TCU with debility, here for rehabilitation, strengthening, intravenous antibiotics, prior to discharge home alone. * Debility - PT/OT. * Pain - Tylenol 1000MG TID, Oxycodone 5MG Q6H, Oxycodone 5MG Q4H PRN pain (4- 10), Lidoderm patch 2 patches topical daily. * Bowel - Miralax 17GM daily, Senna/colace 2 tablets BID, Dulcolax 10MG daily PRN. * Adult immunization - Administer Prevnar 13, Pneumovax 23, Fluzone, COVID19 vaccine as appropriate. * DVT prophylaxis - Not necessary, already on Eliquis. * Sore throat - Cepacol 1 lozenge Q2H PRN. * Atrial Fibrillation - Coreg 12.5MG BID, Eliquis 2.5MG BID. * Vitamin D deficiency - D3 1000IU daily. * Depression - Celexa 10MG daily, stable chronic fpc use, GDR not recommended. * Muscle spasm - Flexeril 10MG TID PRN. * BPH - Finasteride 5MG daily, Tamsulosin 0.8MG daily. * Chronic systolic congestive heart failure - Coreg 12.5MG BID, Entresto 97/103MG BID, Lasix 80MG IV BID. * Skin irritation - Calmoseptine topical BID. * Nutrition - MVI daily. * Thrush - Nystatin 500,000 units 4x/day x 10 days. * Dry Eye - Artificial Tears 2 drops OU Q1H PRN. * Hypokalemia - KCL 20MEQ BIDCM. * L4-5 discitis/MRSE bacteremia - Vancomycin 1000MG IV Q24H thru 02/10/2021 via RUE PICC line, Dr. Baltazar. * Shortness of breath - Albuterol 2.5MG Q2H PRN. * Allergic rhinitis - Fluticasone nasal spray 1 spray nasal BID. Capacity Capacity Assessment Tool Can the patient make a choice & communicate that choice?: Yes Can the patient understand benefits, risks and alternatives?: Yes Can the patient make a logical, rational choice?: Yes Is the choice the patient makes consistent w/ their values?: Yes Is there an impending, emergent risk to the patient?: No Does the patient have an Advance Directive?: No Is there a Surrogate Available?: Yes i.e. HCPOA: Yes i.e. close relative (spouse, child, parent, sibling)?: Yes
[2021-01-26] MEDS: Vancomycin IV 500 MG/100 ML BAG 100 MG IV (20:24)
[2021-01-26 21:52] VITALS: PULSE 76; RESP 16
[2021-01-26] MEDS: Albuterol 2.5 MG/3 ML VIAL.NEB. INHALATION (21:52)
[2021-01-27] MEDS: oxyCODONE 5 MG Tablet PO ×5 (00:10→23:26)
[2021-01-27 05:00] VITALS: BP 124/75; PULSE 76; RESP 18; TEMP 36.3; O2SAT 90
[2021-01-27] MEDS: Menthol/Lanolin/Calamine/Znox 113 GM Tube 1 APPLIC TOPICAL ×2 (05:23→17:13)
[2021-01-27] MEDS: Tamsulosin HCl 0.4 MG Capsule 0.8 MG PO ×2 (05:23→17:11)
[2021-01-27] MEDS: APIXABAN 2.5 MG TABLET PO ×2 (05:24→17:12)
[2021-01-27] MEDS: Cholecalciferol (VIT D3) 25 MCG TABLET (1,000 UNITS) PO (05:24)
[2021-01-27] MEDS: Finasteride 5 MG Tablet PO (05:24)
[2021-01-27] MEDS: Acetaminophen 500 MG Tablet 1000 MG PO ×3 (05:24→21:32)
[2021-01-27] MEDS: SACUBITRIL/VALSARTAN 97-103 MG TABLET 1 EACH PO ×2 (05:25→17:11)
[2021-01-27] MEDS: Citalopram 10 MG Tablet PO (05:25)
[2021-01-27] MEDS: Fluticasone 0.05% 1 SPRAY NASAL.SRY NASAL ×2 (05:27→17:13)
[2021-01-27 05:54] LABS: Anion Gap 3 (5-15); BUN 38 mg/dL (7-18); BUN/Creat Ratio 22.6 RATIO (10-20); Calcium,Total 8.7 mg/dL (8.5-10.1); Chloride 100 mmol/L (98-107); Creatinine, Serum 1.68 mg/dL (0.70-1.30); EST Glomerular Filtration Rate 41 mL/min (>60); Est Glom Filt Rate - Afr Amer 50 mL/min (>60); Estimated Creatinine Clearance 27.96 ml/min; Glucose 109 mg/dL (74-106); Potassium 3.6 mmol/L (3.5-5.1); Sodium Level 142 mmol/L (136-145)
[2021-01-27] MEDS: Lidocaine 5% Patch 2 PATCH TOPICAL (06:45)
[2021-01-27] MEDS: Furosemide 100 MG/10 ML Vial 80 MG IV ×2 (06:45→13:26)
[2021-01-27 07:22] VITALS: O2SAT 91
[2021-01-27] MEDS: Carvedilol 12.5 MG Tablet PO ×2 (07:56→17:10)
[2021-01-27] MEDS: Potassium Chloride Oral Tablet 20 MEQ PO ×2 (07:56→17:11)
[2021-01-27] MEDS: Multivitamins,Ther W-Minerals Tablet 1 TABLET PO (07:56)
--- NOTE | 2021-01-27 12:57 | NURSING ---
Toenails/Fingernails trimmed without incident, pt tolerated well.
[2021-01-27] MEDS: 0.9% Saline Lock 10 ML Syringe IV ×2 (13:26→19:45)
[2021-01-27 13:49] VITALS: BP 117/64; PULSE 84; RESP 18; TEMP 36.6; O2SAT 98
[2021-01-27] MEDS: Senna/Docusate Sodium 1 Tablet PO (17:12)
[2021-01-27 17:21] VITALS: PULSE 74; RESP 18; O2SAT 96
[2021-01-27] MEDS: Albuterol 2.5 MG/3 ML VIAL.NEB. INHALATION (17:21)
[2021-01-27] MEDS: Vancomycin IV 500 MG/100 ML BAG 100 MG IV (19:44)
[2021-01-28 05:31] VITALS: BP 127/70; PULSE 77; RESP 16; TEMP 36.7; O2SAT 96
[2021-01-28 05:37] LABS: Absolute Lymphocyte Count 0.92 X10^3/uL (0.83-4.51); Absolute Neutrophil Count 2.4 X10^3/uL (2.0-7.7); Basophil# 0.06 X10^3/uL; Basophil% 1.4 % (0-1); Eosinophil# 0.16 X10^3/uL; Eosinophils% 3.7 % (0-5); Hematocrit 32.5 % (40-54); Hemoglobin 10.2 g/dL (13.0-16.5); Lymphocyte # 0.92 X10^3/ul (0.83-4.51); Lymphocyte % 21.3 % (19-41); Mean Corp Hgb Conc 31.4 g/dL (32-36); Mean Corpuscular Hgb 33.4 pg (27.0-32.0); Mean Corpuscular Volume 106.6 fL (80-94); Mean Platelet Vol. 10.5 fl (6.2-12.0); Monocyte# 0.79 X10^3/uL; Monocyte% 18.3 % (0-10); NRBC Flagged by Analyzer 0 % (0-5); Neutrophil # 2.36 X10^3/uL (2.7-7.7); Neutrophil % 54.6 % (47-70); Platelet Count 113 K/mm3 (150-450); RBC Distribution Width CV 15.2 % (11.6-14.6); Red Blood Count 3.05 M/mm3 (4.6-6.2); White Blood Count 4.3 K/mm3 (4.4-11.0)
[2021-01-28 05:54] LABS: Anion Gap 4 (5-15); BUN 35 mg/dL (7-18); Calcium,Total 8.4 mg/dL (8.5-10.1); Chloride 101 mmol/L (98-107); Creatinine, Serum 1.59 mg/dL (0.70-1.30); EST Glomerular Filtration Rate 44 mL/min (>60); Est Glom Filt Rate - Afr Amer 53 mL/min (>60); Estimated Creatinine Clearance 29.55 ml/min; Glucose 126 mg/dL (74-106); Potassium 3.6 mmol/L (3.5-5.1); Sodium Level 142 mmol/L (136-145)
[2021-01-28] MEDS: Glycerin/Hypromellose/PEG400 15 ml Bottle 2 DRP EACH EYE (06:16)
[2021-01-28] MEDS: Lidocaine 5% Patch 2 PATCH TOPICAL (06:16)
[2021-01-28] MEDS: Finasteride 5 MG Tablet PO (06:17)
[2021-01-28] MEDS: APIXABAN 2.5 MG TABLET PO ×2 (06:17→17:36)
[2021-01-28] MEDS: Tamsulosin HCl 0.4 MG Capsule 0.8 MG PO ×2 (06:17→17:37)
[2021-01-28] MEDS: Acetaminophen 500 MG Tablet 1000 MG PO ×3 (06:17→20:19)
[2021-01-28] MEDS: Cholecalciferol (VIT D3) 25 MCG TABLET (1,000 UNITS) PO (06:17)
[2021-01-28] MEDS: Citalopram 10 MG Tablet PO (06:17)
[2021-01-28] MEDS: Fluticasone 0.05% 1 SPRAY NASAL.SRY NASAL ×2 (06:17→17:37)
[2021-01-28] MEDS: SACUBITRIL/VALSARTAN 97-103 MG TABLET 1 EACH PO ×2 (06:17→17:35)
[2021-01-28] MEDS: Menthol/Lanolin/Calamine/Znox 113 GM Tube 1 APPLIC TOPICAL ×2 (06:18→17:39)
[2021-01-28] MEDS: Senna/Docusate Sodium 1 Tablet PO ×2 (06:18→17:36)
[2021-01-28] MEDS: oxyCODONE 5 MG Tablet PO ×3 (06:22→17:36)
[2021-01-28] MEDS: Furosemide 100 MG/10 ML Vial 80 MG IV ×2 (06:44→13:49)
[2021-01-28] MEDS: Carvedilol 12.5 MG Tablet PO ×2 (07:45→17:36)
[2021-01-28] MEDS: Multivitamins,Ther W-Minerals Tablet 1 TABLET PO (07:46)
[2021-01-28] MEDS: Potassium Chloride Oral Tablet 20 MEQ PO ×2 (07:46→17:37)
[2021-01-28] MEDS: 0.9% Saline Lock 10 ML Syringe IV (13:48)
[2021-01-28 14:45] VITALS: BP 150/89; PULSE 72; RESP 20; TEMP 36.1; O2SAT 91
[2021-01-28 19:23] LABS: Vancomycin, Trough Level 12.8 ug/mL (5.0-15.0)
[2021-01-28] MEDS: Vancomycin IV 500 MG/100 ML BAG 100 MG IV (20:20)
--- NOTE | 2021-01-28 20:38 | PCM.RX.CS ---
Consult Pharmacy has been consulted to manage selected antiobiotic: Vancomycin Type of Consult: Follow-up Labs: Sodium 142 mmol/L (136-145) 01/28/21 05:15 Potassium 3.6 mmol/L (3.5-5.1) 01/28/21 05:15 Chloride 101 mmol/L (98-107) 01/28/21 05:15 Carbon Dioxide 37.0 mmol/L (21.0-32.0) H 01/28/21 05:15 Anion Gap 4 (5-15) L 01/28/21 05:15 BUN 35 mg/dL (7-18) H 01/28/21 05:15 Creatinine 1.59 mg/dL (0.70-1.30) H 01/28/21 05:15 Est GFR (MDRD) Af Amer 53 mL/min (>60) L 01/28/21 05:15 Est GFR (MDRD) Non-Af 44 mL/min (>60) L 01/28/21 05:15 BUN/Creatinine Ratio 22.0 RATIO (10-20) H 01/28/21 05:15 Glucose 126 mg/dL (74-106) H 01/28/21 05:15 Vancomycin Trough 12.8 ug/mL (5.0-15.0) 01/28/21 18:28 Random Vancomycin 17.9 ug/mL (0.0-15.0) H 01/24/21 06:17 Microbiology: Microbiology 01/13/21 13:45 Nasal Secretion SARS-CoV-2 Antigen (Rapid) - Final 01/07/21 11:20 Interface Orders SARS-CoV-2 Antigen (Rapid) - Final Goal Trough: 15-20 mcg/mL Pharmacy Plan for Drug Dosing: VANCOMYCIN LEVEL RECEIVED Current Vancomycin Dose: 500mg IV Q24hr Number of Doses Received: 4 Vancomycin Level: 12.8 Hours Since Last Dose: ~23hr Renal Function: 1.59 Renal Function Trend: stable Lab/Micro: n/a Vancomycin Plan/Comments: Trough subtherapeutic at 12.8, drawn correctly. Will resume patient on previous dose of vancomycin (750mg IV Q24hr). stopdate for abx 02/10/21 Pending Level: 01/31/21 @1830 Pharmacy Service will continue to monitor and adjust dosing as required.
[2021-01-29] MEDS: oxyCODONE 5 MG Tablet PO ×4 (00:13→17:20)
[2021-01-29 05:00] VITALS: BP 130/81; PULSE 75; RESP 18; TEMP 36.5; O2SAT 95
[2021-01-29] MEDS: Acetaminophen 500 MG Tablet 1000 MG PO ×3 (05:23→21:39)
[2021-01-29] MEDS: Fluticasone 0.05% 1 SPRAY NASAL.SRY NASAL ×2 (05:23→17:15)
[2021-01-29] MEDS: APIXABAN 2.5 MG TABLET PO ×2 (05:24→17:14)
[2021-01-29] MEDS: Tamsulosin HCl 0.4 MG Capsule 0.8 MG PO ×2 (05:24→17:14)
[2021-01-29] MEDS: SACUBITRIL/VALSARTAN 97-103 MG TABLET 1 EACH PO ×2 (05:24→17:14)
[2021-01-29] MEDS: Senna/Docusate Sodium 1 Tablet PO ×2 (05:24→17:14)
[2021-01-29] MEDS: Finasteride 5 MG Tablet PO (05:24)
[2021-01-29] MEDS: Cholecalciferol (VIT D3) 25 MCG TABLET (1,000 UNITS) PO (05:24)
[2021-01-29] MEDS: Citalopram 10 MG Tablet PO (05:24)
[2021-01-29] MEDS: Menthol/Lanolin/Calamine/Znox 113 GM Tube 1 APPLIC TOPICAL ×2 (05:25→17:10)
[2021-01-29] MEDS: Lidocaine 5% Patch 2 PATCH TOPICAL (05:44)
[2021-01-29] MEDS: Furosemide 100 MG/10 ML Vial 80 MG IV ×2 (06:34→15:02)
[2021-01-29] MEDS: 0.9% Saline Lock 10 ML Syringe IV ×2 (06:34→15:03)
[2021-01-29 06:42] LABS: Anion Gap 3 (5-15); BUN 31 mg/dL (7-18); Calcium,Total 8.5 mg/dL (8.5-10.1); Chloride 99 mmol/L (98-107); Creatinine, Serum 1.41 mg/dL (0.70-1.30); EST Glomerular Filtration Rate 51 mL/min (>60); Est Glom Filt Rate - Afr Amer 61 mL/min (>60); Estimated Creatinine Clearance 33.32 ml/min; Glucose 102 mg/dL (74-106); Potassium 3.5 mmol/L (3.5-5.1); Sodium Level 140 mmol/L (136-145)
[2021-01-29] MEDS: Potassium Chloride Oral Tablet 20 MEQ PO ×2 (07:52→17:14)
[2021-01-29] MEDS: Multivitamins,Ther W-Minerals Tablet 1 TABLET PO (07:52)
[2021-01-29] MEDS: Carvedilol 12.5 MG Tablet PO ×2 (07:53→17:14)
[2021-01-29 07:55] VITALS: BP 128/70; PULSE 91
[2021-01-29 14:39] VITALS: BP 118/52; PULSE 83; RESP 18; TEMP 36.7; O2SAT 95
[2021-01-30 05:34] VITALS: BP 140/83; PULSE 97; RESP 18; TEMP 36.4; O2SAT 93
[2021-01-30] MEDS: Citalopram 10 MG Tablet PO (05:37)
[2021-01-30] MEDS: Tamsulosin HCl 0.4 MG Capsule 0.8 MG PO ×2 (05:37→18:03)
[2021-01-30] MEDS: Cholecalciferol (VIT D3) 25 MCG TABLET (1,000 UNITS) PO (05:37)
[2021-01-30] MEDS: Senna/Docusate Sodium 1 Tablet PO (05:37)
[2021-01-30] MEDS: Acetaminophen 500 MG Tablet 1000 MG PO ×3 (05:37→21:12)
[2021-01-30] MEDS: APIXABAN 2.5 MG TABLET PO ×2 (05:38→18:01)
[2021-01-30] MEDS: Fluticasone 0.05% 1 SPRAY NASAL.SRY NASAL ×2 (05:38→17:54)
[2021-01-30] MEDS: Finasteride 5 MG Tablet PO (05:39)
[2021-01-30] MEDS: Lidocaine 5% Patch 2 PATCH TOPICAL (05:40)
[2021-01-30] MEDS: oxyCODONE 5 MG Tablet PO ×3 (05:43→18:07)
[2021-01-30] MEDS: Furosemide 100 MG/10 ML Vial 80 MG IV ×2 (06:05→13:56)
[2021-01-30] MEDS: Menthol/Lanolin/Calamine/Znox 113 GM Tube 1 APPLIC TOPICAL ×2 (06:06→18:04)
[2021-01-30 06:08] LABS: Anion Gap 5 (5-15); BUN 29 mg/dL (7-18); BUN/Creat Ratio 20.6 RATIO (10-20); Calcium,Total 8.5 mg/dL (8.5-10.1); Chloride 101 mmol/L (98-107); Creatinine, Serum 1.41 mg/dL (0.70-1.30); EST Glomerular Filtration Rate 51 mL/min (>60); Est Glom Filt Rate - Afr Amer 61 mL/min (>60); Estimated Creatinine Clearance 33.32 ml/min; Glucose 110 mg/dL (74-106); Potassium 3.8 mmol/L (3.5-5.1); Sodium Level 141 mmol/L (136-145)
[2021-01-30] MEDS: SACUBITRIL/VALSARTAN 97-103 MG TABLET 1 EACH PO ×2 (06:57→18:04)
[2021-01-30] MEDS: Potassium Chloride Oral Tablet 20 MEQ PO ×2 (08:14→18:01)
[2021-01-30] MEDS: Multivitamins,Ther W-Minerals Tablet 1 TABLET PO (08:14)
[2021-01-30] MEDS: Carvedilol 12.5 MG Tablet PO ×2 (08:16→18:01)
[2021-01-30 08:17] VITALS: BP 103/59; PULSE 91
[2021-01-30 09:15] VITALS: O2SAT 93
[2021-01-30 13:22] VITALS: BP 93/55; PULSE 82; RESP 18; TEMP 36.8; O2SAT 95
--- NOTE | 2021-01-30 13:44 | CASEMGMT ---
Social Work Met with patient in room for support and facilitate discharge conversation. Patient reports that things are going well. Patient to have I.V. therapy through 02/10/2021. This medical social consultant updated patient on proposed discharge date of 02/11/2021. Patient plans to return to [facility] at [facility] Patient declines for this medical social consultant to contact family. Support provided. Proposed discharge date: 02/11/2021 Will continue to follow. Coral LAZAR, DEANNA
[2021-01-30] MEDS: 0.9% Saline Lock 10 ML Syringe IV (13:56)
[2021-01-30] MEDS: cycloBENZAPRine HCl 10 MG Tablet PO (14:01)
[2021-01-30] MEDS: Glycerin/Hypromellose/PEG400 15 ml Bottle 2 DRP EACH EYE (17:54)
[2021-01-30 18:10] VITALS: BP 118/58; PULSE 86
[2021-01-30 22:15] VITALS: PULSE 82; RESP 14; O2SAT 98
[2021-01-31] MEDS: Menthol/Lanolin/Calamine/Znox 113 GM Tube 1 APPLIC TOPICAL ×2 (05:39→18:24)
[2021-01-31] MEDS: Citalopram 10 MG Tablet PO (05:40)
[2021-01-31] MEDS: Tamsulosin HCl 0.4 MG Capsule 0.8 MG PO ×2 (05:40→18:22)
[2021-01-31] MEDS: APIXABAN 2.5 MG TABLET PO ×2 (05:40→18:23)
[2021-01-31] MEDS: SACUBITRIL/VALSARTAN 97-103 MG TABLET 1 EACH PO ×2 (05:40→18:23)
[2021-01-31] MEDS: Fluticasone 0.05% 1 SPRAY NASAL.SRY NASAL ×2 (05:41→18:20)
[2021-01-31] MEDS: Furosemide 100 MG/10 ML Vial 80 MG IV ×2 (05:41→13:35)
[2021-01-31] MEDS: Lidocaine 5% Patch 2 PATCH TOPICAL (05:41)
[2021-01-31] MEDS: Polyethylene Glycol 3350 17 GM PACKET PO (05:42)
[2021-01-31] MEDS: Finasteride 5 MG Tablet PO (05:43)
[2021-01-31] MEDS: Cholecalciferol (VIT D3) 25 MCG TABLET (1,000 UNITS) PO (05:43)
[2021-01-31] MEDS: Acetaminophen 500 MG Tablet 1000 MG PO ×3 (05:44→21:02)
[2021-01-31] MEDS: oxyCODONE 5 MG Tablet PO ×3 (05:48→18:23)
[2021-01-31 06:24] VITALS: BP 134/75; PULSE 77; RESP 14; TEMP 36.8; O2SAT 94
[2021-01-31] MEDS: Carvedilol 12.5 MG Tablet PO ×2 (08:11→18:23)
[2021-01-31] MEDS: Potassium Chloride Oral Tablet 20 MEQ PO ×2 (08:11→18:23)
[2021-01-31] MEDS: Multivitamins,Ther W-Minerals Tablet 1 TABLET PO (08:11)
[2021-01-31] MEDS: 0.9% Saline Lock 10 ML Syringe IV ×2 (13:29→19:51)
[2021-01-31 15:47] VITALS: BP 126/64; PULSE 71; RESP 18; TEMP 36.4; O2SAT 96
[2021-01-31] MEDS: Senna/Docusate Sodium 1 Tablet PO (18:22)
[2021-01-31 18:58] LABS: Vancomycin, Trough Level 16.9 ug/mL (5.0-15.0)
--- NOTE | 2021-01-31 20:57 | PCM.RX.CS ---
Consult Pharmacy has been consulted to manage selected antiobiotic: Vancomycin Type of Consult: Follow-up Labs: Sodium 141 mmol/L (136-145) 01/30/21 05:13 Potassium 3.8 mmol/L (3.5-5.1) 01/30/21 05:13 Chloride 101 mmol/L (98-107) 01/30/21 05:13 Carbon Dioxide 35.0 mmol/L (21.0-32.0) H 01/30/21 05:13 Anion Gap 5 (5-15) 01/30/21 05:13 BUN 29 mg/dL (7-18) H 01/30/21 05:13 Creatinine 1.41 mg/dL (0.70-1.30) H 01/30/21 05:13 Est GFR (MDRD) Af Amer 61 mL/min (>60) 01/30/21 05:13 Est GFR (MDRD) Non-Af 51 mL/min (>60) L 01/30/21 05:13 BUN/Creatinine Ratio 20.6 RATIO (10-20) H 01/30/21 05:13 Glucose 110 mg/dL (74-106) H 01/30/21 05:13 Vancomycin Trough 16.9 ug/mL (5.0-15.0) H 01/31/21 18:13 Random Vancomycin 17.9 ug/mL (0.0-15.0) H 01/24/21 06:17 Microbiology: Microbiology 01/13/21 13:45 Nasal Secretion SARS-CoV-2 Antigen (Rapid) - Final 01/07/21 11:20 Interface Orders SARS-CoV-2 Antigen (Rapid) - Final Goal Trough: 15-20 mcg/mL Pharmacy Plan for Drug Dosing: Trough in range. Recheck in 3 days per policy. Pharmacy Service will continue to monitor and adjust dosing as required. Follow-Up Labs: Trough Vancomycin - 02/03 @ 1830
[2021-01-31 21:50] VITALS: PULSE 83; RESP 16; O2SAT 98
[2021-02-01 05:00] VITALS: BP 133/89; PULSE 99; RESP 18; TEMP 36.4; O2SAT 93
[2021-02-01] MEDS: Fluticasone 0.05% 1 SPRAY NASAL.SRY NASAL ×2 (06:28→17:08)
[2021-02-01] MEDS: Glycerin/Hypromellose/PEG400 15 ml Bottle 2 DRP EACH EYE (06:29)
[2021-02-01] MEDS: Lidocaine 5% Patch 2 PATCH TOPICAL (06:29)
[2021-02-01] MEDS: Cholecalciferol (VIT D3) 25 MCG TABLET (1,000 UNITS) PO (06:30)
[2021-02-01] MEDS: Finasteride 5 MG Tablet PO (06:30)
[2021-02-01] MEDS: SACUBITRIL/VALSARTAN 97-103 MG TABLET 1 EACH PO ×2 (06:30→17:08)
[2021-02-01] MEDS: Citalopram 10 MG Tablet PO (06:30)
[2021-02-01] MEDS: Tamsulosin HCl 0.4 MG Capsule 0.8 MG PO ×2 (06:30→17:08)
[2021-02-01] MEDS: APIXABAN 2.5 MG TABLET PO ×2 (06:30→17:08)
[2021-02-01] MEDS: Acetaminophen 500 MG Tablet 1000 MG PO ×3 (06:30→21:07)
[2021-02-01] MEDS: Senna/Docusate Sodium 1 Tablet PO ×2 (06:31→17:08)
[2021-02-01] MEDS: oxyCODONE 5 MG Tablet PO ×4 (06:36→21:57)
[2021-02-01] MEDS: Menthol/Lanolin/Calamine/Znox 113 GM Tube 1 APPLIC TOPICAL ×2 (06:37→17:10)
[2021-02-01] MEDS: Furosemide 100 MG/10 ML Vial 80 MG IV (06:39)
[2021-02-01] MEDS: 0.9% Saline Lock 10 ML Syringe IV ×2 (06:39→19:34)
[2021-02-01 07:40] VITALS: O2SAT 92
[2021-02-01] MEDS: Multivitamins,Ther W-Minerals Tablet 1 TABLET PO (07:55)
[2021-02-01] MEDS: Potassium Chloride Oral Tablet 20 MEQ PO ×2 (07:55→17:08)
[2021-02-01] MEDS: Carvedilol 12.5 MG Tablet PO ×2 (07:55→17:08)
--- NOTE | 2021-02-01 14:29 | NURSING ---
Dr. Kraft updated on pt's weight loss and decreased edema in bilateral legs. New order to stop IV Lasix and new order entered for 40mg PO Lasix. Will continue to monitor.
[2021-02-01] MEDS: Furosemide 40 MG Tablet PO (14:54)
[2021-02-01 15:10] VITALS: BP 157/76; PULSE 75; RESP 18; TEMP 36.3; O2SAT 95
--- NOTE | 2021-02-01 18:49 | NURSING ---
Picc Line has no blood return. Had pt turn head cough and reposition arm. Called pharmacy to receive Heparin flush will flush with heparin and check for blood return. Updated Dr. Kraft new order for cath shweta if no blood return noted. shift stacker RN updated.
[2021-02-01] MEDS: Alteplase 2 MG/2 ML Vial IV (19:40)
--- NOTE | 2021-02-01 19:48 | NURSING ---
Heparin administered per order and flushed with 20 cc Normal Saline. No blood return noted. JOSEPHINE Perez administered Activase per order. Will update.
--- NOTE | 2021-02-01 21:46 | NURSING ---
This RN was able to flush PICC, slightly sluggish, unable to get blood return. Heparin had previously been given in attempt to get blood return. Cathflo given, after 30 minutes able to aspirate 5ml blood. PICC flushed with NS and antibiotic started.
[2021-02-01 22:01] VITALS: PULSE 76; RESP 16; O2SAT 96
[2021-02-02] MEDS: oxyCODONE 5 MG Tablet PO ×3 (06:36→17:53)
[2021-02-02] MEDS: Glycerin/Hypromellose/PEG400 15 ml Bottle 2 DRP EACH EYE (06:38)
[2021-02-02] MEDS: Fluticasone 0.05% 1 SPRAY NASAL.SRY NASAL ×2 (06:38→17:54)
[2021-02-02] MEDS: Citalopram 10 MG Tablet PO (06:39)
[2021-02-02] MEDS: Tamsulosin HCl 0.4 MG Capsule 0.8 MG PO ×2 (06:39→17:54)
[2021-02-02] MEDS: Finasteride 5 MG Tablet PO (06:39)
[2021-02-02] MEDS: Cholecalciferol (VIT D3) 25 MCG TABLET (1,000 UNITS) PO (06:39)
[2021-02-02] MEDS: APIXABAN 2.5 MG TABLET PO ×2 (06:39→17:55)
[2021-02-02] MEDS: Acetaminophen 500 MG Tablet 1000 MG PO ×3 (06:39→21:58)
[2021-02-02] MEDS: SACUBITRIL/VALSARTAN 97-103 MG TABLET 1 EACH PO ×2 (06:39→17:55)
[2021-02-02 06:40] VITALS: O2SAT 96
[2021-02-02] MEDS: Furosemide 40 MG Tablet PO ×2 (06:40→13:48)
[2021-02-02] MEDS: Lidocaine 5% Patch 2 PATCH TOPICAL (06:41)
[2021-02-02 06:43] VITALS: BP 111/70; PULSE 106; RESP 16; TEMP 36.6; O2SAT 98
[2021-02-02] MEDS: Menthol/Lanolin/Calamine/Znox 113 GM Tube 1 APPLIC TOPICAL (06:43)
[2021-02-02 09:05] VITALS: BP 128/72; PULSE 73; O2SAT 93
[2021-02-02] MEDS: Carvedilol 12.5 MG Tablet PO ×2 (09:16→17:56)
[2021-02-02] MEDS: Potassium Chloride Oral Tablet 20 MEQ PO ×2 (09:16→17:56)
[2021-02-02] MEDS: Multivitamins,Ther W-Minerals Tablet 1 TABLET PO (09:16)
--- NOTE | 2021-02-02 11:12 | NURSING ---
PT HAS BRUISING TO BOTTOM LIP. ASKED PT WHAT HAPPENED PT STATED HE DIDNT KNOW AND THOUGHT HE MIGHT HAVE HIT HIS SELF IN MIDDLE OF NIGHT WHILE TAKING O2 OFF. RN AWARE
[2021-02-02] MEDS: 0.9% Saline Lock 10 ML Syringe IV ×2 (13:50→20:15)
[2021-02-02 14:13] VITALS: BP 134/64; PULSE 76; RESP 18; TEMP 36.2; O2SAT 96
[2021-02-02] MEDS: Senna/Docusate Sodium 1 Tablet PO (17:54)
[2021-02-02 22:00] VITALS: RESP 14
[2021-02-03 06:00] VITALS: BP 139/76; PULSE 84; RESP 20; TEMP 36; O2SAT 93
[2021-02-03] MEDS: oxyCODONE 5 MG Tablet PO ×3 (06:37→17:22)
[2021-02-03] MEDS: Menthol/Lanolin/Calamine/Znox 113 GM Tube 1 APPLIC TOPICAL (06:37)
[2021-02-03] MEDS: Finasteride 5 MG Tablet PO (06:39)
[2021-02-03] MEDS: Citalopram 10 MG Tablet PO (06:39)
[2021-02-03] MEDS: Furosemide 40 MG Tablet PO ×2 (06:39→13:53)
[2021-02-03] MEDS: Tamsulosin HCl 0.4 MG Capsule 0.8 MG PO ×2 (06:39→17:22)
[2021-02-03] MEDS: Senna/Docusate Sodium 1 Tablet PO (06:39)
[2021-02-03] MEDS: Cholecalciferol (VIT D3) 25 MCG TABLET (1,000 UNITS) PO (06:39)
[2021-02-03] MEDS: Acetaminophen 500 MG Tablet 1000 MG PO ×3 (06:39→20:56)
[2021-02-03] MEDS: SACUBITRIL/VALSARTAN 97-103 MG TABLET 1 EACH PO ×2 (06:39→17:22)
[2021-02-03] MEDS: APIXABAN 2.5 MG TABLET PO ×2 (06:40→17:22)
[2021-02-03] MEDS: Fluticasone 0.05% 1 SPRAY NASAL.SRY NASAL ×2 (06:40→17:21)
[2021-02-03] MEDS: Lidocaine 5% Patch 2 PATCH TOPICAL (06:41)
[2021-02-03] MEDS: Glycerin/Hypromellose/PEG400 15 ml Bottle 2 DRP EACH EYE (06:45)
[2021-02-03] MEDS: Potassium Chloride Oral Tablet 20 MEQ PO ×2 (08:31→17:22)
[2021-02-03] MEDS: Carvedilol 12.5 MG Tablet PO ×2 (08:31→17:22)
[2021-02-03] MEDS: Multivitamins,Ther W-Minerals Tablet 1 TABLET PO (08:31)
[2021-02-03 14:21] VITALS: BP 124/75; PULSE 70; RESP 16; TEMP 36.7; O2SAT 98
--- NOTE | 2021-02-03 14:32 | CASEMGMT ---
Social Work Met with patient in room to facilitate discharge planning. Patient plans to discharge back to Independent living at [facility]. Patient reports to have home oxygen and all need DME already set up in the home. Patient reports plan to contact family for transportation to home. No further therapy recommended. Patient declines for this certified social workers in health care to contact family about discharge plan/transportation and reports to be able to contact family and to have no concerns on discharge back to home. Support provided. Patient signed NOMNC. Proposed discharge date: 02/11/2021 Disposition: Independent living at [facility]. Coral LAZAR, DEANNA
[2021-02-03] MEDS: 0.9% Saline Lock 10 ML Syringe IV (17:23)
[2021-02-03 19:03] LABS: Vancomycin, Trough Level 17.7 ug/mL (5.0-15.0)
--- NOTE | 2021-02-03 19:36 | PCM.RX.CS ---
Consult Pharmacy has been consulted to manage selected antiobiotic: Vancomycin Type of Consult: Follow-up Prior Doses of Antibiotics Received/Current Regimen: currently on 750mg IV q24h Labs: Sodium 141 mmol/L (136-145) 01/30/21 05:13 Potassium 3.8 mmol/L (3.5-5.1) 01/30/21 05:13 Chloride 101 mmol/L (98-107) 01/30/21 05:13 Carbon Dioxide 35.0 mmol/L (21.0-32.0) H 01/30/21 05:13 Anion Gap 5 (5-15) 01/30/21 05:13 BUN 29 mg/dL (7-18) H 01/30/21 05:13 Creatinine 1.41 mg/dL (0.70-1.30) H 01/30/21 05:13 Est GFR (MDRD) Af Amer 61 mL/min (>60) 01/30/21 05:13 Est GFR (MDRD) Non-Af 51 mL/min (>60) L 01/30/21 05:13 BUN/Creatinine Ratio 20.6 RATIO (10-20) H 01/30/21 05:13 Glucose 110 mg/dL (74-106) H 01/30/21 05:13 Vancomycin Trough 17.7 ug/mL (5.0-15.0) H 02/03/21 18:10 Random Vancomycin 17.9 ug/mL (0.0-15.0) H 01/24/21 06:17 Microbiology: Microbiology 01/13/21 13:45 Nasal Secretion SARS-CoV-2 Antigen (Rapid) - Final 01/07/21 11:20 Interface Orders SARS-CoV-2 Antigen (Rapid) - Final Weight used for dosin kg Estimated Creatinine Clearance: 33ml/hr Goal Trough: 15-20 mcg/mL Pharmacy Plan for Drug Dosing: The vanc trough drawn at 18:10 tonight (22 hrs after the last dose) was 17.7. This is within goal range so will keep same dosing. Repeat trough once more in 3 days before the stop date of 02/10/21. Pharmacy Service will continue to monitor and adjust dosing as required. Follow-Up Labs: Trough Vancomycin Labs to be done on [date and time ordered]: 02/06/21 18:30
--- NOTE | 2021-02-03 21:14 | PCM.DC.SUM ---
Providers Date of Admission: 12/30/20 Primary Care Physician: Dr. Prabhu Vee MD Consultations 12/30/20 17:10 Consult: Infectious Disease Routine Consulting Provider: Brayan Baltazar Reason for Consult: Discitis EMERGENT Consult: No Notified: Yes Date Notified: 12/30/20 Time Notified: 17:10 Method of Notification: Verbal 01/09/21 16:00 Consult: Pain Management Routine Consulting Provider: Michael Luo Reason for Consult: epidural spine injection EMERGENT Consult: No Notified: Yes Date Notified: 01/09/21 Time Notified: 16:00 Method of Notification: Answering Service Method of Consult:: In-Person Comments:: MESSAGE LEFT @ OFFICE Reason For Visit: DISCITIS Diagnosis Discharge Diagnosis (1) Debility: Status: Acute Code(s): R53.81 - Other malaise (2) Bacteremia due to coagulase-negative Staphylococcus: Status: Acute Code(s): R78.81 - Bacteremia; B95.7 - Other staphylococcus as the cause of diseases classified elsewhere (3) Discitis: Status: Acute Code(s): M46.40 - Discitis, unspecified, site unspecified Qualifiers: Spinal region: lumbar Qualified Code(s): M46.46 - Discitis, unspecified, lumbar region (4) Coronary artery disease: Status: Acute Code(s): I25.10 - Atherosclerotic heart disease of enterprise coronary artery without angina pectoris (5) Chronic systolic congestive heart failure: Status: Chronic Code(s): I50.22 - Chronic systolic (congestive) heart failure (6) Depression: Status: Acute Code(s): F32.9 - Major depressive disorder, single episode, unspecified (7) Hypertension: Status: Chronic Code(s): I10 - Essential (primary) hypertension (8) Hearing loss: Status: Acute Code(s): H91.90 - Unspecified hearing loss, unspecified ear (9) Benign prostatic hyperplasia: Status: Acute Code(s): N40.0 - Benign prostatic hyperplasia without lower urinary tract symptoms (10) Muscle spasm: Status: Acute Code(s): M62.838 - Other muscle spasm Medications at Discharge Home Medications finasteride 5 mg PO DAILY 09/22/20 carvedilol 12.5 mg PO BID 12/26/20 acetaminophen 1,000 mg PO TID 12/30/20 apixaban [Eliquis] 2.5 mg PO BID 30 Days #60 tab 02/03/21 citalopram 10 mg PO DAILY 30 Days #30 tab 02/03/21 furosemide 40 mg PO BID 30 Days #60 tab 02/03/21 lidocaine 2 patch TOPICAL DAILY 30 Days #60 ea 02/03/21 potassium chloride [Klor-Con M20] 20 meq PO BIDCM 30 Days #60 tab 02/03/21 sacubitril-valsartan [Entresto] 1 ea PO BID 30 Days #60 tab 02/03/21 tamsulosin 0.8 mg PO BID 30 Days #120 cap 02/03/21 Hospital Course Operations None Procedures None Summary of Care Provided Minutes Spent on Discharge: 35 Hospital Course: 85 year old male with below past medical history hospitalized for L4-5 discitis, MRSE bacteremia, admitted to TCU with debility, here for rehabilitation, strengthening, intravenous antibiotics, prior to discharge home alone. Resident swelling has been difficult to control. Resident low back pain resolved. Discharge home alone to Independent Living at [facility] 02/11/2021. Physical Exam Const alert and oriented x3 General Appearance: cooperative HEENT normocephalic Eyes PERRL and EOMs intact bilaterally Neck supple, no JVD and no carotid bruits Resp normal respiratory effort, normal air movement and clear to auscultation bilaterally Cardio regular rate and regular rhythm GI normal to inspection, nondistended, normoactive bowel sounds, non-tender and non-distended Extremity normal capillary refill General Extremity: Negative for edema Skin no rashes or lesions noted General Skin Exam: no breakdown Psych affect normal Appearance: appropriate Weight / BMI Weight Weight: 74.474 kg Body Mass Index (BMI) 29.7 ABG / Lab / Microbiology Data Result Diagrams: 01/28/21 05:15 01/30/21 05:13 Laboratory: Laboratory Results - last 24 hr 02/03/21 18:10: Vancomycin Trough 17.7 H Microbiology: Microbiology 01/13/21 13:45 Nasal Secretion SARS-CoV-2 Antigen (Rapid) - Final 01/07/21 11:20 Interface Orders SARS-CoV-2 Antigen (Rapid) - Final D/C Instructions Discharge Diet: No restrictions Discharge Activity: Return to Normal Activity, May Shower and Use Walker Weight Bearing Status: Weight bearing as tolerated Call your doctor if you observe: Fever of 101 or Higher, Inability to urinate, Inability to have a bowel movement, Shortness of breath, Dizziness, Fainting spells, Swelling in the ankles, Chest pain and Uncontrolled pain Additional Instructions: Discharge home alone to Independent Living at [facility] 02/11/2021 Please Follow Up With: Melvin Kraft Chi, MD When: 1 week. Meaningful Use Info Meaningful Use Diagnoses (Choose all that apply): None applicable Discharge Plan Admission Admit Date/Time: 12/30/20 15:00 Primary Reason for Your Visit: Debility. Attending Provider: Melvin Kraft Chi Primary Care Provider: Prabhu Vee Consulting Providers: Brayan Baltazar ; Michael Luo Instructions Additional Instructions / Restrictions: Discharge home alone to Independent Living at [facility] 02/11/2021 Discharge Orders/Prescriptions Prescriptions: New potassium chloride [Klor-Con M20] 20 mEq Tablet,Er Particles/Crystals 20 meq PO BIDCM 30 Days Qty: 60 RF: 0 tamsulosin 0.4 mg Capsule 0.8 mg PO BID 30 Days Qty: 120 RF: 0 lidocaine 5 % Adhesive Patch,Medicated 2 patch topical DAILY 30 Days Qty: 60 RF: 0 Eliquis 2.5 mg Tablet 2.5 mg PO BID 30 Days Qty: 60 RF: 0 Entresto 97-103 mg Tablet 1 ea PO BID 30 Days Qty: 60 RF: 0 Continued finasteride 5 MG tablet 5 mg PO DAILY RF: 0 carvedilol 12.5 mg tablet 12.5 mg PO BID RF: 0 acetaminophen 500 mg tablet 1,000 mg PO TID RF: 0 furosemide 40 mg tablet 40 mg PO BID 30 Days Qty: 60 RF: 0 citalopram 10 MG tablet 10 mg PO DAILY 30 Days Qty: 30 RF: 0 Discontinued tamsulosin 0.4 mg capsule 0.8 mg PO BID RF: 0 rivaroxaban 15 MG tablet 15 mg PO DAILY RF: 0 peg [id number] 1 DRP bottle 2 drp EACH EYE PRN PRN (Reason: Dry Eyes) RF: 0 lidocaine 5 % adhesive patch,medicated 2 patch topical DAILY RF: 0 Calmoseptine 0.44-20.6 % Ointment 1 applic TOPICAL BID RF: 0 nystatin 100,000 unit/mL Suspension 50,000 unit PO 4X/DAY RF: 0 senna-docusate sodium Tablet 2 tab PO BID RF: 0 acetaminophen 500 mg Tablet 1,000 mg PO Q6H PRN (Reason: Pain) RF: 0 polyethylene glycol 3350 [Miralax] 17 gram Powder In Packet 17 g PO DAILY RF: 0 Entresto 97-103 mg Tablet 1 tab PO BID RF: 0 cyclobenzaprine 5 mg tablet 10 mg PO TID RF: 0 cetylpyridinium chloride Lozenge 2 robert MUCOUS MEMBRANE Q2H PRN (Reason: cough/congestion) RF: 0 bisacodyl 5 mg Tablet 10 mg PO DAILY PRN (Reason: Constipation) RF: 0 oxycodone 5 mg Tablet 5 mg PO Q4H PRN PRN (Reason: Pain Score 4-10) 3 Days Qty: 14 RF: 0 potassium chloride 10 mEq tablet,ER particles/crystals 10 meq PO BIDCM RF: 0 vancomycin in dextrose 5 % 1 gram/200 mL piggyback 1,000 mg IV Q24H RF: 0 cholecalciferol (vitamin D3) 25 mcg (1,000 unit) tablet 25 mcg PO DAILY RF: 0 Multivitamins,Ther W-Minerals [Multivitamin With Minerals (BKC)] 1 tab PO BREAKFAST RF: 0 Referrals / Follow Up: Melvin Kraft Chi, MD [COURTESY STAFF PHYSICIAN] - In 1 Week Disposition Disposition (needs filled in before D/C Order can be placed): Home, Self Care
[2021-02-04 05:00] VITALS: BP 123/71; PULSE 77; RESP 18; O2SAT 97
[2021-02-04] MEDS: oxyCODONE 5 MG Tablet PO ×3 (05:20→17:19)
[2021-02-04] MEDS: Menthol/Lanolin/Calamine/Znox 113 GM Tube 1 APPLIC TOPICAL (05:20)
[2021-02-04] MEDS: SACUBITRIL/VALSARTAN 97-103 MG TABLET 1 EACH PO ×2 (05:21→17:18)
[2021-02-04] MEDS: Glycerin/Hypromellose/PEG400 15 ml Bottle 2 DRP EACH EYE (05:21)
[2021-02-04] MEDS: Fluticasone 0.05% 1 SPRAY NASAL.SRY NASAL ×2 (05:21→17:17)
[2021-02-04] MEDS: Acetaminophen 500 MG Tablet 1000 MG PO ×3 (05:21→20:06)
[2021-02-04] MEDS: Tamsulosin HCl 0.4 MG Capsule 0.8 MG PO ×2 (05:21→17:17)
[2021-02-04] MEDS: Finasteride 5 MG Tablet PO (05:22)
[2021-02-04] MEDS: Cholecalciferol (VIT D3) 25 MCG TABLET (1,000 UNITS) PO (05:22)
[2021-02-04] MEDS: Lidocaine 5% Patch 2 PATCH TOPICAL (05:22)
[2021-02-04] MEDS: Furosemide 40 MG Tablet PO ×2 (05:22→14:33)
[2021-02-04] MEDS: APIXABAN 2.5 MG TABLET PO ×2 (05:22→17:17)
[2021-02-04] MEDS: Citalopram 10 MG Tablet PO (05:24)
[2021-02-04] MEDS: Senna/Docusate Sodium 1 Tablet PO ×2 (05:25→17:18)
[2021-02-04 05:42] LABS: Absolute Lymphocyte Count 0.66 X10^3/uL (0.83-4.51); Absolute Neutrophil Count 1.9 X10^3/uL (2.0-7.7); Basophil# 0.05 X10^3/uL; Basophil% 1.4 % (0-1); Eosinophil# 0.13 X10^3/uL; Eosinophils% 3.7 % (0-5); Hematocrit 31.8 % (40-54); Hemoglobin 10.1 g/dL (13.0-16.5); Lymphocyte # 0.66 X10^3/ul (0.83-4.51); Lymphocyte % 18.6 % (19-41); Mean Corp Hgb Conc 31.8 g/dL (32-36); Mean Corpuscular Hgb 33.7 pg (27.0-32.0); Mean Platelet Vol. 10.8 fl (6.2-12.0); Monocyte# 0.78 X10^3/uL; NRBC Flagged by Analyzer 0 % (0-5); Neutrophil # 1.91 X10^3/uL (2.7-7.7); Neutrophil % 53.7 % (47-70); Platelet Count 115 K/mm3 (150-450); RBC Distribution Width CV 15.1 % (11.6-14.6); RBC Distribution Width SD 58.3 fl (35.1-43.9); White Blood Count 3.6 K/mm3 (4.4-11.0)
[2021-02-04 06:00] LABS: Anion Gap 3 (5-15); BUN 33 mg/dL (7-18); BUN/Creat Ratio 24.3 RATIO (10-20); Calcium,Total 8.3 mg/dL (8.5-10.1); Chloride 105 mmol/L (98-107); Creatinine, Serum 1.36 mg/dL (0.70-1.30); EST Glomerular Filtration Rate 53 mL/min (>60); Est Glom Filt Rate - Afr Amer 64 mL/min (>60); Estimated Creatinine Clearance 34.54 ml/min; Glucose 109 mg/dL (74-106); Potassium 4.3 mmol/L (3.5-5.1); Sodium Level 141 mmol/L (136-145)
[2021-02-04 07:30] VITALS: O2SAT 97
[2021-02-04] MEDS: Multivitamins,Ther W-Minerals Tablet 1 TABLET PO (08:19)
[2021-02-04] MEDS: Potassium Chloride Oral Tablet 20 MEQ PO ×2 (08:19→17:18)
[2021-02-04] MEDS: Carvedilol 12.5 MG Tablet PO ×2 (08:19→17:17)
[2021-02-04 15:42] VITALS: BP 158/78; PULSE 57; RESP 18; TEMP 36.9; O2SAT 100
[2021-02-04 17:23] VITALS: BP 128/74; PULSE 72
[2021-02-05 05:06] VITALS: BP 137/81; PULSE 79; RESP 18; TEMP 36.8; O2SAT 96
[2021-02-05] MEDS: Lidocaine 5% Patch 2 PATCH TOPICAL (05:11)
[2021-02-05] MEDS: Fluticasone 0.05% 1 SPRAY NASAL.SRY NASAL ×2 (05:11→17:31)
[2021-02-05] MEDS: Cholecalciferol (VIT D3) 25 MCG TABLET (1,000 UNITS) PO (05:11)
[2021-02-05] MEDS: Tamsulosin HCl 0.4 MG Capsule 0.8 MG PO ×2 (05:12→17:34)
[2021-02-05] MEDS: APIXABAN 2.5 MG TABLET PO ×2 (05:12→17:34)
[2021-02-05] MEDS: oxyCODONE 5 MG Tablet PO ×3 (05:12→17:32)
[2021-02-05] MEDS: Acetaminophen 500 MG Tablet 1000 MG PO ×3 (05:12→22:12)
[2021-02-05] MEDS: Finasteride 5 MG Tablet PO (05:12)
[2021-02-05] MEDS: SACUBITRIL/VALSARTAN 97-103 MG TABLET 1 EACH PO ×2 (05:12→17:34)
[2021-02-05] MEDS: Citalopram 10 MG Tablet PO (05:12)
[2021-02-05] MEDS: Furosemide 40 MG Tablet PO ×2 (05:12→14:54)
[2021-02-05] MEDS: Glycerin/Hypromellose/PEG400 15 ml Bottle 2 DRP EACH EYE (05:13)
[2021-02-05] MEDS: Senna/Docusate Sodium 1 Tablet PO ×2 (05:13→17:34)
[2021-02-05] MEDS: Menthol/Lanolin/Calamine/Znox 113 GM Tube 1 APPLIC TOPICAL ×2 (05:17→17:34)
[2021-02-05 07:50] VITALS: O2SAT 96
[2021-02-05] MEDS: Carvedilol 12.5 MG Tablet PO ×2 (08:25→17:33)
[2021-02-05] MEDS: Multivitamins,Ther W-Minerals Tablet 1 TABLET PO (08:25)
[2021-02-05] MEDS: Potassium Chloride Oral Tablet 20 MEQ PO ×2 (08:25→17:33)
--- NOTE | 2021-02-05 09:56 | NURSING ---
Physical therapy reported to this nurse that while patient was walking outside with therapy his SPO2 dropped to 88% and HR increased to 150's, pt states he has a pacer and it has been awhile since it has been serviced and wonders if it is time he has an appointment. VIOLETTAG called to schedule an appointment but there was no answer, message left to return call.
[2021-02-05] MEDS: 0.9% Saline Lock 10 ML Syringe IV ×2 (12:20→20:25)
[2021-02-05 16:46] VITALS: BP 139/82; PULSE 81; RESP 18; TEMP 36.9; O2SAT 96
[2021-02-06 05:00] VITALS: BP 129/76; PULSE 78; RESP 18; TEMP 36.7; O2SAT 96
[2021-02-06] MEDS: Menthol/Lanolin/Calamine/Znox 113 GM Tube 1 APPLIC TOPICAL ×2 (07:19→17:35)
[2021-02-06] MEDS: APIXABAN 2.5 MG TABLET PO ×2 (07:21→17:36)
[2021-02-06] MEDS: Citalopram 10 MG Tablet PO (07:21)
[2021-02-06] MEDS: Tamsulosin HCl 0.4 MG Capsule 0.8 MG PO ×2 (07:22→17:35)
[2021-02-06] MEDS: Fluticasone 0.05% 1 SPRAY NASAL.SRY NASAL ×2 (07:22→17:38)
[2021-02-06] MEDS: SACUBITRIL/VALSARTAN 97-103 MG TABLET 1 EACH PO ×2 (07:22→17:36)
[2021-02-06] MEDS: Lidocaine 5% Patch 2 PATCH TOPICAL (07:23)
[2021-02-06] MEDS: Furosemide 40 MG Tablet PO ×2 (07:23→15:20)
[2021-02-06] MEDS: Senna/Docusate Sodium 1 Tablet PO ×2 (07:24→17:35)
[2021-02-06] MEDS: Acetaminophen 500 MG Tablet 1000 MG PO ×3 (07:24→20:40)
[2021-02-06] MEDS: Finasteride 5 MG Tablet PO (07:24)
[2021-02-06] MEDS: Glycerin/Hypromellose/PEG400 15 ml Bottle 2 DRP EACH EYE (07:25)
[2021-02-06] MEDS: Cholecalciferol (VIT D3) 25 MCG TABLET (1,000 UNITS) PO (07:25)
[2021-02-06] MEDS: oxyCODONE 5 MG Tablet PO ×2 (07:31→11:52)
[2021-02-06 09:04] VITALS: O2SAT 94
[2021-02-06 09:13] VITALS: BP 141/75; PULSE 85
[2021-02-06] MEDS: Potassium Chloride Oral Tablet 20 MEQ PO ×2 (09:15→17:36)
[2021-02-06] MEDS: Multivitamins,Ther W-Minerals Tablet 1 TABLET PO (09:15)
[2021-02-06] MEDS: Carvedilol 12.5 MG Tablet PO ×2 (09:15→17:35)
--- NOTE | 2021-02-06 12:24 | PN.PALL_ITS ---
Subjective Subjective Patient sitting in chair with legs elevated. He appears relaxed. Denies any pain. He does have pain when ambulating but is very minimal at this point. He has been taking oxycodone every 6 hours except for skipping the midnight dose, so goes from 1800 to 0600 without pain medication. No nausea, vomiting, diarr hea, or constipation. No shortness of breath or significant edema. He is back on his oral Lasix. He is wanting all of his prescriptions sent to [facility] per Dr. Kraft. I am going to send the oxycodone to [facility]. Objective Data Objective Data Vital Signs: Vital Signs Temp Pulse Resp BP Pulse Ox 98.0 F 85 18 141/75 H 94 02/06/21 05:00 02/06/21 09:13 02/06/21 05:00 02/06/21 09:13 02/06/21 09:04 Oxygen Flow Rate (L/min) 3 Oxygen Delivery Method Nasal Cannula Weight: 74.899 kg Body Mass Index (BMI) 29.7 Intake & Output: Intake and Output for Last 24 Hours 02/04/21 02/05/21 02/06/21 23:59 23:59 23:59 Intake Total 1370 / 1370 1455 / 1455 590 / 590 Balance 1370 / 1370 1455 / 1455 590 / 590 Lab / Micro Data Result Diagrams: 02/04/21 05:15 02/04/21 05:15 Micro: Microbiology 01/13/21 13:45 Nasal Secretion SARS-CoV-2 Antigen (Rapid) - Final 01/07/21 11:20 Interface Orders SARS-CoV-2 Antigen (Rapid) - Final Physical Exam Narrative sitting in chair, he is upbeat and talkative Const alert, oriented x3 and no apparent distress General Appearance: cooperative and comfortable Orientation / Consciousness: awake, oriented to person, oriented to place and oriented to time HEENT normocephalic and head/scalp atraumatic Neck supple General: trachea midline Resp normal respiratory effort and normal air movement Resp Narrative: O2 per nasal cannula at 2 liters Effort and Inspection: symmetric chest movement Auscultation: clear to auscultation bilaterally and diminished lung sounds Cardio regular rate, S1 normal heart sound and S2 normal heart sound Rhythm: abnormal rhythm GI normal to inspection, nondistended, normoactive bowel sounds Inspection: visible herniation Auscultation: normoactive bowel sounds Palpation: soft Back/Spine General Back: tenderness Lumbar Spine / Lower Back: ROM limited Extremity no clubbing, cyanosis or edema General Extremity: no tenderness to palpation of joints or extremities; Negative for cyanosis Skin no rashes or lesions noted General Skin Exam: ecchymosis Neuro CN's II-XII intact bilaterally and no focal motor deficits Psych mental status grossly normal Insight: insight good Judgement: judgement good Assessment & Plan Assessment/Plan (1) Intractable low back pain: (2) Muscle spasm: (3) Discitis: QUALIFIERS: Spinal region: lumbar Qualified Code(s): M46.46 - Discitis, unspecified, lumbar region (4) Weakness: (5) Paroxysmal atrial fibrillation: PLAN: 85-year-old male with several recent hospital and TCU admissions, seen today for palliative care f/u due to recurrent intractable low back pain and debility. He was originally admitted to palliative care September 2020 for symptom management of shortness of breath and weakness r/t CHF. 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 1. Intractable low back pain 2/2 MRSE bacteremia L4-L5 discitis: improving 01/01: added scheduled oxycodone 5mg q6h 01/06: increased oxycodone PRN dose to 1-2 tabs (5 to 10 mg) every 4 hours as needed for breakthrough pain. 01/08: increased scheduled dose oxycodone to 10 mg q6 hours due to poor pain control, as discitis subsides we can wean him down off of narcotics. 01/13: improvement as of today. able to walk farther. not as sore. not always grimacing w/every movement. No changes to meds at this time. Hold off on dexa. Dr. Luo possibly in later today? 01/26: steady improvement with pain, avg rating 4/10. improved ambulation. Used one PRN oxy in the last 5 days. *continue his current pain medications (oxycodone 5 mg q6h scheduled) with prn dose the same. *f/u in 1 week. Please call palliative with questions or concerns *stop date on vanco 02/10 per ID. 02/06: d/c scheduled oxycodone, keep oxycodone 5-10mg PO q4h PRN *sent RX for oxycodone to [facility] for patient since discharging 02/11. Other Current meds: Lidocaine patches, Tylenol 1Gm TID scheduled, cyclobenzaprine 10 mg TID prn. Steroid injection Dr. Luo. 2. Weakness: Improving. Ambulating further distances, tolerating fairly well. TCU for rehab. We will continue to follow. d/c planned for 02/11. 3. Shortness of breath: stable. Continues to wear O2 2L prn. 01/24 attending increased lasix IV to 80mg BID d/t increased edema, 4. Atrial flutter/recent COVID-19/CKD/s/p MVR, s/p CABG BPH/macrocy tosis/leukopenia/thrombocytopenia/systolic CHF/PAF, recent respiratory failure with hypoxia: Complicates overall care, management, recovery, and prognosis. Patient to follow-up with his specialists once discharged from TCU. [place] [facility] to do hematological workup. Thank you for the opportunity to participate in this patient's care, please do not hesitate to contact [facility] with any further questions or concerns. Palliative direct line is [phone]. We will call patient to schedule outpatient visit within 2 weeks. Greater than 50% of F2F visit dedicated to education and counseling of palliative care services, medications, comorbid conditions and potential assistance with management, and plan of care moving forward. Start time: 1220 End time: 1308
[2021-02-06 15:59] VITALS: BP 142/80; PULSE 99; RESP 18; TEMP 36.6; O2SAT 95
[2021-02-06] MEDS: 0.9% Saline Lock 10 ML Syringe IV (18:48)
[2021-02-06 19:30] LABS: Vancomycin, Trough Level 17.2 ug/mL (5.0-15.0)
--- NOTE | 2021-02-06 20:59 | PCM.RX.CS ---
Consult Pharmacy has been consulted to manage selected antiobiotic: Vancomycin Type of Consult: Follow-up Suspected Infection: Other Prior Doses of Antibiotics Received/Current Regimen: Has been on 750mg iv q24h. Labs: Sodium 141 mmol/L (136-145) 02/04/21 05:15 Potassium 4.3 mmol/L (3.5-5.1) 02/04/21 05:15 Chloride 105 mmol/L (98-107) 02/04/21 05:15 Carbon Dioxide 33.0 mmol/L (21.0-32.0) H 02/04/21 05:15 Anion Gap 3 (5-15) L 02/04/21 05:15 BUN 33 mg/dL (7-18) H 02/04/21 05:15 Creatinine 1.36 mg/dL (0.70-1.30) H 02/04/21 05:15 Est GFR (MDRD) Af Amer 64 mL/min (>60) 02/04/21 05:15 Est GFR (MDRD) Non-Af 53 mL/min (>60) L 02/04/21 05:15 BUN/Creatinine Ratio 24.3 RATIO (10-20) H 02/04/21 05:15 Glucose 109 mg/dL (74-106) H 02/04/21 05:15 Vancomycin Trough 17.2 ug/mL (5.0-15.0) H 02/06/21 18:30 Random Vancomycin 17.9 ug/mL (0.0-15.0) H 01/24/21 06:17 Microbiology: Microbiology 01/13/21 13:45 Nasal Secretion SARS-CoV-2 Antigen (Rapid) - Final 01/07/21 11:20 Interface Orders SARS-CoV-2 Antigen (Rapid) - Final Weight used for dosin kg Estimated Creatinine Clearance: 35ml/min Goal Trough: 15-20 mcg/mL Pharmacy Plan for Drug Dosing: Today's trough was 17.2 and in goal range of 15-20 mcg/ml. Will continue 750mg iv q24 dosing. A repeat trough ordered in 4 days. Pharmacy Service will continue to monitor and adjust dosing as required.
[2021-02-07 06:13] VITALS: BP 122/80; PULSE 83; RESP 18; TEMP 36.5; O2SAT 99
[2021-02-07] MEDS: Fluticasone 0.05% 1 SPRAY NASAL.SRY NASAL ×2 (06:15→17:03)
[2021-02-07] MEDS: Glycerin/Hypromellose/PEG400 15 ml Bottle 2 DRP EACH EYE (06:15)
[2021-02-07] MEDS: Furosemide 40 MG Tablet PO ×2 (06:16→13:08)
[2021-02-07] MEDS: SACUBITRIL/VALSARTAN 97-103 MG TABLET 1 EACH PO ×2 (06:16→17:03)
[2021-02-07] MEDS: Finasteride 5 MG Tablet PO (06:16)
[2021-02-07] MEDS: Senna/Docusate Sodium 1 Tablet PO ×2 (06:16→17:01)
[2021-02-07] MEDS: Citalopram 10 MG Tablet PO (06:16)
[2021-02-07] MEDS: APIXABAN 2.5 MG TABLET PO ×2 (06:16→17:01)
[2021-02-07] MEDS: Cholecalciferol (VIT D3) 25 MCG TABLET (1,000 UNITS) PO (06:16)
[2021-02-07] MEDS: Tamsulosin HCl 0.4 MG Capsule 0.8 MG PO ×2 (06:16→17:01)
[2021-02-07] MEDS: Acetaminophen 500 MG Tablet 1000 MG PO ×3 (06:16→20:43)
[2021-02-07] MEDS: Lidocaine 5% Patch 2 PATCH TOPICAL (06:30)
[2021-02-07] MEDS: Menthol/Lanolin/Calamine/Znox 113 GM Tube 1 APPLIC TOPICAL ×2 (06:31→17:03)
[2021-02-07] MEDS: 0.9% Saline Lock 10 ML Syringe IV ×2 (06:38→20:42)
[2021-02-07] MEDS: Potassium Chloride Oral Tablet 20 MEQ PO ×2 (08:21→17:02)
[2021-02-07] MEDS: Multivitamins,Ther W-Minerals Tablet 1 TABLET PO (08:21)
[2021-02-07] MEDS: Carvedilol 12.5 MG Tablet PO ×2 (08:21→17:03)
[2021-02-07 14:41] VITALS: BP 121/73; PULSE 72; RESP 16; TEMP 36.2; O2SAT 95
[2021-02-08 06:35] VITALS: BP 110/74; PULSE 96; RESP 24; TEMP 36.6; O2SAT 95
[2021-02-08] MEDS: Furosemide 40 MG Tablet PO ×2 (06:42→14:09)
[2021-02-08] MEDS: Tamsulosin HCl 0.4 MG Capsule 0.8 MG PO ×2 (06:42→17:58)
[2021-02-08] MEDS: Lidocaine 5% Patch 2 PATCH TOPICAL (06:42)
[2021-02-08] MEDS: APIXABAN 2.5 MG TABLET PO ×2 (06:43→17:58)
[2021-02-08] MEDS: Acetaminophen 500 MG Tablet 1000 MG PO ×3 (06:45→22:46)
[2021-02-08] MEDS: Cholecalciferol (VIT D3) 25 MCG TABLET (1,000 UNITS) PO (06:45)
[2021-02-08] MEDS: SACUBITRIL/VALSARTAN 97-103 MG TABLET 1 EACH PO ×2 (06:45→17:58)
[2021-02-08] MEDS: Citalopram 10 MG Tablet PO (06:46)
[2021-02-08] MEDS: Senna/Docusate Sodium 1 Tablet PO (06:46)
[2021-02-08] MEDS: Finasteride 5 MG Tablet PO (06:46)
[2021-02-08] MEDS: Glycerin/Hypromellose/PEG400 15 ml Bottle 2 DRP EACH EYE (06:49)
[2021-02-08] MEDS: Fluticasone 0.05% 1 SPRAY NASAL.SRY NASAL ×2 (06:49→17:58)
[2021-02-08] MEDS: Menthol/Lanolin/Calamine/Znox 113 GM Tube 1 APPLIC TOPICAL ×2 (06:50→17:58)
[2021-02-08] MEDS: Multivitamins,Ther W-Minerals Tablet 1 TABLET PO (08:14)
[2021-02-08] MEDS: Potassium Chloride Oral Tablet 20 MEQ PO ×2 (08:15→17:58)
[2021-02-08] MEDS: Carvedilol 12.5 MG Tablet PO ×2 (08:15→17:58)
[2021-02-08 11:23] VITALS: PULSE 88; RESP 18; O2SAT 94
[2021-02-08 15:34] VITALS: BP 128/77; PULSE 99; RESP 18; TEMP 36.2; O2SAT 96
[2021-02-08] MEDS: 0.9% Saline Lock 10 ML Syringe IV (18:01)
--- NOTE | 2021-02-08 22:20 | NURSING ---
Pt c/o abdominal cramping and diarrhea x 8 episodes today. Feels nauseated. No emesis. Sitting in chair w/ BLE dependent. Appears fatigued. In no acute distress. Tongue and mucous membranes slightly dry. Skin turgor fair. Denies any dysuria or retention. Intake noted between 75-100%. Vitals obtained and recorded. Bowel sounds x4 quads w/ LUQ hyperactive. Given ivis jorge and a cup of ice. Paged Dr. Kraft w/ return phone call within minutes. New orders received for and abdominal x-ray, BMP, CBC w/ Diff, and Stool for CDiff. Pt updated on new orders. Instructed to call staff if needed for assistance w/ toileting, transferring, and/or ambulation if needed d/t symptoms. He verbalizes understanding.
[2021-02-08 23:07] LABS: Absolute Lymphocyte Count 0.67 X10^3/uL (0.83-4.51); Absolute Neutrophil Count 3.1 X10^3/uL (2.0-7.7); Basophil# 0.07 X10^3/uL; Basophil% 1.4 % (0-1); Eosinophil# 0.12 X10^3/uL; Eosinophils% 2.4 % (0-5); Hematocrit 29.8 % (40-54); Hemoglobin 9.7 g/dL (13.0-16.5); Lymphocyte # 0.67 X10^3/ul (0.83-4.51); Lymphocyte % 13.6 % (19-41); Mean Corp Hgb Conc 32.6 g/dL (32-36); Mean Corpuscular Hgb 33.9 pg (27.0-32.0); Mean Corpuscular Volume 104.2 fL (80-94); Mean Platelet Vol. 9.6 fl (6.2-12.0); Monocyte# 0.95 X10^3/uL; Monocyte% 19.3 % (0-10); NRBC Flagged by Analyzer 0 % (0-5); Neutrophil # 3.08 X10^3/uL (2.7-7.7); Neutrophil % 62.9 % (47-70); Platelet Count 136 K/mm3 (150-450); RBC Distribution Width CV 15.3 % (11.6-14.6); RBC Distribution Width SD 57.7 fl (35.1-43.9); Red Blood Count 2.86 M/mm3 (4.6-6.2); White Blood Count 4.9 K/mm3 (4.4-11.0)
--- NOTE | 2021-02-08 23:08 | RAD_ITS ---
STUDY: X-RAY - ABDOMEN/PELVIS REASON FOR EXAM: Male, 85 years old. abdominal pain and cramping, loose stools TECHNIQUE: AP supine abdomen 2 images. COMPARISON: CT abdomen and pelvis December 07, 2020. FINDINGS: Normal visualized lung bases. Mild cardiomegaly. Cardiac pacemaker leads. Sternal wires. There is an unremarkable bowel gas pattern. There is no demonstrated free abdominal air. 1.9 cm gallstone right upper quadrant. The visualized liver, spleen and kidneys are grossly normal in size and morphology. Normal soft tissue structures. Degenerative changes of the lumbar spine. RAD/Abdomen Single View (Portable) IMPRESSION: Nonspecific bowel gas pattern without evidence of obstruction. Cholelithiasis noted previously. Electronically Signed: Duncan Quiñones MD at 1:08 EDT , Service support ,
[2021-02-08 23:27] LABS: Anion Gap 2 (5-15); BUN 30 mg/dL (7-18); Calcium,Total 8.7 mg/dL (8.5-10.1); Chloride 106 mmol/L (98-107); Creatinine, Serum 1.25 mg/dL (0.70-1.30); EST Glomerular Filtration Rate 58 mL/min (>60); Est Glom Filt Rate - Afr Amer 70 mL/min (>60); Estimated Creatinine Clearance 37.58 ml/min; Glucose 121 mg/dL (74-106); Potassium 3.6 mmol/L (3.5-5.1); Sodium Level 140 mmol/L (136-145)
[2021-02-09 06:49] VITALS: BP 140/69; PULSE 79; RESP 20; TEMP 36.8; O2SAT 97
[2021-02-09] MEDS: Fluticasone 0.05% 1 SPRAY NASAL.SRY NASAL ×2 (06:51→17:23)
[2021-02-09] MEDS: Glycerin/Hypromellose/PEG400 15 ml Bottle 2 DRP EACH EYE (06:52)
[2021-02-09] MEDS: Finasteride 5 MG Tablet PO (06:53)
[2021-02-09] MEDS: APIXABAN 2.5 MG TABLET PO ×2 (06:54→17:23)
[2021-02-09] MEDS: Furosemide 40 MG Tablet PO ×2 (06:54→14:36)
[2021-02-09] MEDS: Tamsulosin HCl 0.4 MG Capsule 0.8 MG PO ×2 (06:54→17:23)
[2021-02-09] MEDS: SACUBITRIL/VALSARTAN 97-103 MG TABLET 1 EACH PO ×2 (06:55→17:23)
[2021-02-09] MEDS: Cholecalciferol (VIT D3) 25 MCG TABLET (1,000 UNITS) PO (06:55)
[2021-02-09] MEDS: Lidocaine 5% Patch 2 PATCH TOPICAL (06:55)
[2021-02-09] MEDS: Acetaminophen 500 MG Tablet 1000 MG PO ×3 (06:56→21:28)
[2021-02-09] MEDS: Citalopram 10 MG Tablet PO (06:57)
[2021-02-09 07:52] VITALS: O2SAT 96
[2021-02-09] MEDS: Potassium Chloride Oral Tablet 20 MEQ PO ×2 (07:53→17:23)
[2021-02-09] MEDS: Carvedilol 12.5 MG Tablet PO ×2 (07:53→17:24)
[2021-02-09] MEDS: Multivitamins,Ther W-Minerals Tablet 1 TABLET PO (07:53)
[2021-02-09 07:56] VITALS: BP 140/84; PULSE 81
[2021-02-09] MEDS: 0.9% Saline Lock 10 ML Syringe IV ×2 (11:02→20:00)
--- NOTE | 2021-02-09 13:17 | NURSING ---
Contacted Dr. Blunt's office and talked with Brigitte who checks pace makers and she stated he was seen in the office and Pacemaker was checked on December 18, 2020 and had 1.5yrs left on the battery. Brigitte stated that if he wants he is able to use his transmission box and they would be able to check the Pacemaker. Updated pt and he stated he knew where the transmission box is at home. Let him know if family wants to bring it in we can help send the pacer check.
[2021-02-09 14:11] VITALS: BP 143/81; PULSE 81; RESP 16; TEMP 36.3; O2SAT 96
[2021-02-09] MEDS: Menthol/Lanolin/Calamine/Znox 113 GM Tube 1 APPLIC TOPICAL (17:24)
[2021-02-09 19:06] LABS: Vancomycin, Trough Level 17.1 ug/mL (5.0-15.0)
[2021-02-10] MEDS: Cholecalciferol (VIT D3) 25 MCG TABLET (1,000 UNITS) PO (06:00)
[2021-02-10] MEDS: APIXABAN 2.5 MG TABLET PO ×2 (06:00→17:22)
[2021-02-10] MEDS: Citalopram 10 MG Tablet PO (06:00)
[2021-02-10] MEDS: Tamsulosin HCl 0.4 MG Capsule 0.8 MG PO ×2 (06:00→17:22)
[2021-02-10] MEDS: Finasteride 5 MG Tablet PO (06:00)
[2021-02-10] MEDS: Lidocaine 5% Patch 2 PATCH TOPICAL (06:00)
[2021-02-10] MEDS: SACUBITRIL/VALSARTAN 97-103 MG TABLET 1 EACH PO ×2 (06:00→17:22)
[2021-02-10] MEDS: Furosemide 40 MG Tablet PO ×2 (06:00→14:09)
[2021-02-10] MEDS: Fluticasone 0.05% 1 SPRAY NASAL.SRY NASAL ×2 (06:01→17:20)
[2021-02-10] MEDS: Acetaminophen 500 MG Tablet 1000 MG PO ×3 (06:03→21:50)
[2021-02-10] MEDS: Glycerin/Hypromellose/PEG400 15 ml Bottle 2 DRP EACH EYE (06:06)
[2021-02-10] MEDS: Menthol/Lanolin/Calamine/Znox 113 GM Tube 1 APPLIC TOPICAL ×2 (06:06→17:22)
[2021-02-10 06:18] VITALS: BP 143/77; PULSE 80; RESP 18; O2SAT 96
[2021-02-10 07:23] VITALS: O2SAT 95
[2021-02-10] MEDS: Multivitamins,Ther W-Minerals Tablet 1 TABLET PO (08:07)
[2021-02-10] MEDS: Carvedilol 12.5 MG Tablet PO ×2 (08:07→17:22)
[2021-02-10] MEDS: Potassium Chloride Oral Tablet 20 MEQ PO ×2 (08:07→17:22)
[2021-02-10 08:08] VITALS: BP 137/74; PULSE 88
[2021-02-10 13:45] VITALS: BP 119/51; PULSE 81; RESP 18; TEMP 36.8; O2SAT 96
[2021-02-10 13:51] VITALS: PULSE 94; O2SAT 99
--- NOTE | 2021-02-10 16:40 | CASEMGMT ---
BIMS and PHQ9 interviews completed for MDS assessment. SWAPNA Navas
[2021-02-10] MEDS: 0.9% Saline Lock 10 ML Syringe IV ×2 (20:08→21:50)
--- NOTE | 2021-02-10 23:02 | NURSING ---
Stool collected for c-diff d/t complaints of diarrhea. Stool was formed. Not sent.
[2021-02-11 05:00] VITALS: BP 152/85; PULSE 72; RESP 18; TEMP 36.6; O2SAT 94
[2021-02-11] MEDS: Menthol/Lanolin/Calamine/Znox 113 GM Tube 1 APPLIC TOPICAL (05:27)
[2021-02-11] MEDS: APIXABAN 2.5 MG TABLET PO (05:28)
[2021-02-11] MEDS: Citalopram 10 MG Tablet PO (05:28)
[2021-02-11] MEDS: SACUBITRIL/VALSARTAN 97-103 MG TABLET 1 EACH PO (05:29)
[2021-02-11] MEDS: Fluticasone 0.05% 1 SPRAY NASAL.SRY NASAL (05:30)
[2021-02-11] MEDS: Lidocaine 5% Patch 2 PATCH TOPICAL (05:30)
[2021-02-11] MEDS: Furosemide 40 MG Tablet PO (05:30)
[2021-02-11] MEDS: Tamsulosin HCl 0.4 MG Capsule 0.8 MG PO (05:30)
[2021-02-11] MEDS: Finasteride 5 MG Tablet PO (05:31)
[2021-02-11] MEDS: Acetaminophen 500 MG Tablet 1000 MG PO (05:31)
[2021-02-11] MEDS: Cholecalciferol (VIT D3) 25 MCG TABLET (1,000 UNITS) PO (05:32)
[2021-02-11] MEDS: Glycerin/Hypromellose/PEG400 15 ml Bottle 2 DRP EACH EYE (05:32)
[2021-02-11 05:36] LABS: Absolute Lymphocyte Count 0.84 X10^3/uL (0.83-4.51); Absolute Neutrophil Count 3.6 X10^3/uL (2.0-7.7); Basophil# 0.08 X10^3/uL; Basophil% 1.4 % (0-1); Eosinophil# 0.18 X10^3/uL; Eosinophils% 3.2 % (0-5); Hematocrit 30.6 % (40-54); Hemoglobin 9.8 g/dL (13.0-16.5); Lymphocyte # 0.84 X10^3/ul (0.83-4.51); Lymphocyte % 14.9 % (19-41); Mean Corpuscular Hgb 33.2 pg (27.0-32.0); Mean Corpuscular Volume 103.7 fL (80-94); Mean Platelet Vol. 10.2 fl (6.2-12.0); Monocyte# 0.88 X10^3/uL; Monocyte% 15.6 % (0-10); NRBC Flagged by Analyzer 0 % (0-5); Neutrophil # 3.63 X10^3/uL (2.7-7.7); Neutrophil % 64.2 % (47-70); Platelet Count 141 K/mm3 (150-450); RBC Distribution Width CV 15.9 % (11.6-14.6); RBC Distribution Width SD 59.3 fl (35.1-43.9); Red Blood Count 2.95 M/mm3 (4.6-6.2); White Blood Count 5.7 K/mm3 (4.4-11.0)
[2021-02-11 05:53] LABS: Anion Gap 6 (5-15); BUN 22 mg/dL (7-18); Calcium,Total 8.6 mg/dL (8.5-10.1); Chloride 107 mmol/L (98-107); Creatinine, Serum 1.16 mg/dL (0.70-1.30); EST Glomerular Filtration Rate 64 mL/min (>60); Est Glom Filt Rate - Afr Amer 77 mL/min (>60); Glucose 107 mg/dL (74-106); Potassium 3.9 mmol/L (3.5-5.1); Sodium Level 141 mmol/L (136-145)
[2021-02-11] MEDS: Carvedilol 12.5 MG Tablet PO (08:05)
[2021-02-11] MEDS: Potassium Chloride Oral Tablet 20 MEQ PO (08:05)
[2021-02-11] MEDS: Multivitamins,Ther W-Minerals Tablet 1 TABLET PO (08:05)
[2021-02-11 09:47] VITALS: BP 106/61; PULSE 80; RESP 16; TEMP 36.5; O2SAT 93
[2021-02-11 11:46] VITALS: PULSE 82; RESP 16; O2SAT 96
== END 2021-02-11 12:41 | disposition home or self-care (01) | DRG 552 ==
PROVIDERS: Internal Medicine Infectious Disease; Admitting Provider Family Medicine Geriatric Medicine; PCP Family Medicine; Visit Provider Family Medicine Geriatric Medicine
DX: M46.46 Discitis, unspecified, lumbar region (principal); I50.22 Chronic systolic (congestive) heart failure; I13.0 Hypertensive heart and chronic kidney disease with heart failure and stage 1 through stage 4 chronic kidney disease, or unspecified chronic kidney disease; F32.9 Major depressive disorder, single episode, unspecified; N40.0 Benign prostatic hyperplasia without lower urinary tract symptoms; E55.9 Vitamin D deficiency, unspecified; N18.32 Chronic kidney disease, stage 3b; I48.0 Paroxysmal atrial fibrillation; I25.10 Atherosclerotic heart disease of native coronary artery without angina pectoris; I25.5 Ischemic cardiomyopathy; E87.6 Hypokalemia; B37.9 Candidiasis, unspecified; G89.29 Other chronic pain; H91.93 Unspecified hearing loss, bilateral; Z87.891 Personal history of nicotine dependence; Z99.81 Dependence on supplemental oxygen; Z79.899 Other long term (current) drug therapy; Z79.01 Long term (current) use of anticoagulants; Z95.1 Presence of aortocoronary bypass graft; Z95.810 Presence of automatic (implantable) cardiac defibrillator; Z86.16 Personal history of COVID-19
CPT/HCPCS: 36415; 36569; 71045; 74018; 80048; 80202; 85014; 85018; 85025; 87426; 87493; 93971; 94640; 97110; 97116; 97162; 97166; 97530; 97535; 97802; J2997; J7050; A4216; J1940

== ENCOUNTER → 2021-01-09 07:03 | Outpatient (CLI) | payer MEDICARE, OTHER, SELFPAY ==
[2020-12-30 15:05] VITALS: BMI 29.7
--- NOTE | 2021-01-09 07:06 | CT_ITS ---
STUDY: CT LUMBAR SPINE WITH CONTRAST REASON FOR EXAM: Male, 85 years old. DISCITIS RADIATION DOSAGE (If Supplied By Facility): CTDIvol = ( 18.28 ) mGy, DLP = ( 563.27 ) mGycm TECHNIQUE: The patient was scanned in a multi detector CT scanner. High resolution transaxial imaging was performed following the intravenous administration of IV 100mL Isovue-300. Images were obtained from to . Sagittal and coronal images were reconstructed. Individualized dose optimization techniques were used for this CT. COMPARISON: None FINDINGS: Normal lumbar lordosis. There is no substantial scoliosis. The vertebral bodies are of normal height and alignment. There is mild narrowing at the level of L1-2. No significant narrowing at L2-3 but there is left paracentral disc bulge causing obliteration of the left neural foramina. Marked narrowing is seen at the level of L3-4 with minimal vacuum phenomenon. There is narrowing and sclerosis of the endplates between L4-5 level with diffuse bulge of the annulus fibrosus causing narrowing of the spinal canal. There is marked narrowing of the intervertebral disc at the level of L5-S1 with diffuse bulge of the annulus fibrosus and narrowing of the lateral recesses . Osteophyte formation seen at L4-5 and L5-S1 more in the former level CT/Spine Lumbar WITH Contrast IMPRESSION: Evidence of degenerative disc disease and maximum is seen at the level of L4-5 and L5-S1 please see the detailed report above. Electronically Signed: Heide Weller, at 12:28 EDT Tel , Service support ,
== END ==
PROVIDERS: PCP Family Medicine; Referring Provider Family Medicine Geriatric Medicine; Visit Provider Family Medicine Geriatric Medicine
DX: M46.46 Discitis, unspecified, lumbar region (principal)
CPT/HCPCS: 72132

== ENCOUNTER → 2021-01-14 08:36 | Outpatient (CLI) | payer MEDICARE, OTHER, SELFPAY ==
[2020-12-30 15:05] VITALS: BMI 29.7
--- NOTE | 2021-01-14 08:43 | VDUE_ITS ---
Reason For Study: Right arm swelling Right Proximal Right jugular vein is spontaneous, widely patent, phasic, with no intraluminal echogenicity noted. Right subclavian vein is spontaneous, widely patent, phasic, with no intraluminal echogenicity noted. Right Lower Arm Right radial vein is compressible. Right ulnar vein is compressible. Right Arm Right axillary vein is spontaneous, patent, phasic, competent, compressible and demonstrates augmentation. Right brachial vein is compressible. Right cephalic vein is compressible. Right basilic vein is compressible. PICC line noted in the right subclavian vein, axillary vein and brachial vein. Patient Safety Prelim to TCU. VL/Venous Duplex US, Unilateral Interpretation Summary Deep veins of the right upper extremity are patent and compressible segmentally . There is no evidence of deep vein thrombosis. The superficial veins of the right upper extr emity, the basilic and cephalic veins, are patent and compressible. There is no evidence of right upper extremity superficial thrombophlebitis involving the veins imaged. A PICC line is noted i n the right subclavian vein, axillary vein, and brachial vein. Ordering Physician: Melvin Kraft Referring Physician: Prabhu Vee Performed By: Sandy Zambrano RVT ?
== END ==
PROVIDERS: PCP Family Medicine; Referring Provider Family Medicine Geriatric Medicine; Visit Provider Family Medicine Geriatric Medicine
DX: M79.89 Other specified soft tissue disorders (principal); R22.31 Localized swelling, mass and lump, right upper limb
CPT/HCPCS: 93971

== ENCOUNTER → 2021-02-19 12:59 | Outpatient (CLI) | payer MEDICARE, OTHER, SELFPAY ==
--- NOTE | 2021-02-19 13:05 | RAD_ITS ---
STUDY: X-RAY CHEST REASON FOR EXAM: Male, 85 years old. Shortness of breath. TECHNIQUE: Frontal and lateral views of the chest. COMPARISON: 01/06/2021. FINDINGS: Right PICC has been removed. Low volume inspiration with mild diffuse interstitial pattern and scattered healed granulomatous calcifications. There is no demonstrated pleural abnormality. Cardiomegaly with sternotomy wires and cardiac pacer unchanged. Normal mediastinum and kaylene. Normal visualized pulmonary arteries. Normal visualized aortic arch and descending thoracic aorta. Normal visualized thoracic spine. Normal visualized ribs, clavicles, and shoulders. There is no demonstrated abnormality of the visualized soft tissue structures of the upper abdomen. RAD/Chest PA and Lateral IMPRESSION: Removal of right PICC. Cardiomegaly with mild interstitial pattern diffusely. No active or acute cardiopulmonary disease. Electronically Signed: Crow Vaughn MD at 13:21 EDT , Service support ,
== END ==
PROVIDERS: PCP Family Medicine Geriatric Medicine; Referring Provider Family Medicine Geriatric Medicine; Visit Provider Family Medicine Geriatric Medicine
DX: R06.02 Shortness of breath (principal); I50.22 Chronic systolic (congestive) heart failure; R53.83 Other fatigue; E05.90 Thyrotoxicosis, unspecified without thyrotoxic crisis or storm
CPT/HCPCS: 36415; 71046; 80053; 83880; 84439; 84443; 84479; 85025

== ENCOUNTER → 2021-02-19 14:11 | Outpatient (CLI) | payer MEDICARE, OTHER, SELFPAY ==
[2021-02-19 17:42] LABS: Absolute Lymphocyte Count 0.68 X10^3/uL (0.83-4.51); Absolute Neutrophil Count 8.2 X10^3/uL (2.0-7.7); Basophil# 0.01 X10^3/uL; Basophil% 0.1 % (0-1); Hematocrit 33.6 % (40-54); Hemoglobin 10.4 g/dL (13.0-16.5); Lymphocyte # 0.68 X10^3/ul (0.83-4.51); Lymphocyte % 6.7 % (19-41); Mean Corpuscular Hgb 33.4 pg (27.0-32.0); Mean Platelet Vol. 10.6 fl (6.2-12.0); Monocyte# 1.16 X10^3/uL; Monocyte% 11.5 % (0-10); NRBC Flagged by Analyzer 0 % (0-5); Neutrophil % 81.2 % (47-70); Platelet Count 210 K/mm3 (150-450); RBC Distribution Width SD 64.9 fl (35.1-43.9); Red Blood Count 3.11 M/mm3 (4.6-6.2); White Blood Count 10.1 K/mm3 (4.4-11.0)
[2021-02-19 18:15] LABS: ALB/GLOB Ratio 0.9 RATIO (0.9-2.4); AST(SGOT) 28 U/L (15-37); Alanine Aminotransfer ALT/SGPT 34 U/L (16-61); Albumin, Serum 3.5 g/dL (3.2-5.0); Alkaline Phosphatase 80 U/L (45-117); Anion Gap 9 (5-15); BUN 33 mg/dL (7-18); BUN/Creat Ratio 21.4 RATIO (10-20); Chloride 107 mmol/L (98-107); Creatinine, Serum 1.54 mg/dL (0.70-1.30); EST Glomerular Filtration Rate 46 mL/min (>60); Est Glom Filt Rate - Afr Amer 55 mL/min (>60); Glucose 134 mg/dL (74-106); Potassium 4.3 mmol/L (3.5-5.1); Protein, Total 7.5 g/dL (6.4-8.2); Sodium Level 142 mmol/L (136-145); Thyroid Stim Hormone (TSH) 0.19 uIU/mL (0.358-3.74)
[2021-02-20 09:41] LABS: T3 Uptake 35 % (33-40); T4 Free Direct 1.11 ng/dL (0.76-1.46)
== END ==
PROVIDERS: PCP Family Medicine Geriatric Medicine; Visit Provider Family Medicine Geriatric Medicine
DX: I50.22 Chronic systolic (congestive) heart failure (principal); R53.83 Other fatigue; E05.90 Thyrotoxicosis, unspecified without thyrotoxic crisis or storm
CPT/HCPCS: 36415; 80053; 83880; 84443; 85025

== ENCOUNTER → 2021-03-04 09:05 | Outpatient (CLI) | payer MEDICARE, OTHER, SELFPAY ==
--- NOTE | 2021-03-04 09:10 | NM_ITS ---
CLINICAL: Male, 86 years old. HYPERTHYROIDISM THYROID IMAGING STUDY TECHNIQUE: The patient was administered a 279 uCi I-123 capsule by mouth. COMPARISON STUDIES : NM - None. CR - Not available for review at this time. CT - Not available for review at this time. MR - Not available for review at this time. US - Not available for review at this time. FINDINGS: The 4 I-123 radioactive iodine thyroidal uptake was calculated to be 2.7% (normal 6 to 20%). The 24-hour I-123 radioactive iodine thyroidal uptake was calculated to be 7.9% (normal 5 to 35%). The I-123 thyroid scan demonstrates homogeneous radiopharmaceutical concentration throughout both lobes of a U-shaped thyroid gland. There are no colloidal parenchymal nodules noted in either lobe of the thyroid gland. NM/Thyroid Uptake Single or Mult IMPRESSION: Decreased 4 hour uptake and low normal 24-hour uptake Electronically Signed: Prabhu Brewer MD at 8:19 EDT Tel , Service support ,
== END ==
PROVIDERS: PCP Family Medicine Geriatric Medicine; Referring Provider Family Medicine Geriatric Medicine; Visit Provider Family Medicine Geriatric Medicine
DX: E05.90 Thyrotoxicosis, unspecified without thyrotoxic crisis or storm (principal)
CPT/HCPCS: 78012; A9516

== ENCOUNTER → 2021-03-05 12:21 | Outpatient (CLI) | payer MEDICARE, OTHER, SELFPAY ==
--- NOTE | 2021-03-05 14:32 | PFTCOMP_ITS ---
COMPLETE PULMONARY FUNCTION TEST INTERPRETATION Brief HPI: Patient is an 86 year old Black male, currently under the care of Dr. Kraft, who presents to [facility] for complete pulmonary function tests secondary to diagnosis of dyspnea. Respiratory therapist reports good effort and reproducible results. Interpretation: Forced expiration spirometry shows no large airways obstructive ventilatory defect with an FEV1 of 81% predicted. There is no significant bronchodilator response by strict ATS criteria. Spirograms are of fair quality with only 5 seconds of exhalation and do not plateau, likely underestimating FVC. The respiratory flow volume loop shows a normal pattern. Lung volumes by body plethysmography show a normal total lung capacity at 4.98 L, 93% predicted. All other lung volumes are within normal limits. Diffusion capacity by carbon monoxide is decreased at 54% predicted. The airway resistance is normal. No previous pulmonary function tests were available for review. Impression: Isolated reduction in diffusing capacity consistent with a pulmonary vascular disorder.
== END ==
PROVIDERS: PCP Family Medicine Geriatric Medicine; Referring Provider Family Medicine Geriatric Medicine; Visit Provider Family Medicine Geriatric Medicine
DX: R06.02 Shortness of breath (principal)
CPT/HCPCS: 94060; 94726; 94729

== ENCOUNTER → 2021-03-16 13:38 | Outpatient (CLI) | payer MEDICARE, OTHER, SELFPAY ==
[2021-03-18 16:34] LABS: Anti-Thyroglobulin AB < 1.0 IU/mL (0.0-0.9); Thyroglobulin, Serum Qt. 7.2 ng/mL (1.4-29.2)
== END ==
PROVIDERS: PCP Family Medicine Geriatric Medicine; Visit Provider Family Medicine Geriatric Medicine
DX: E05.90 Thyrotoxicosis, unspecified without thyrotoxic crisis or storm (principal)
CPT/HCPCS: 36415; 84432; 86800

== ENCOUNTER → 2021-05-25 14:38 | Outpatient (CLI) | payer MEDICARE, OTHER, SELFPAY ==
[2021-05-25 17:19] LABS: Absolute Lymphocyte Count 0.81 X10^3/uL (0.83-4.51); Absolute Neutrophil Count 2.6 X10^3/uL (2.0-7.7); Basophil# 0.06 X10^3/uL; Basophil% 1.4 % (0-1); Eosinophil# 0.13 X10^3/uL; Hematocrit 37.7 % (40-54); Hemoglobin 11.5 g/dL (13.0-16.5); Lymphocyte # 0.81 X10^3/ul (0.83-4.51); Lymphocyte % 18.9 % (19-41); Mean Corp Hgb Conc 30.5 g/dL (32-36); Mean Corpuscular Hgb 30.4 pg (27.0-32.0); Mean Corpuscular Volume 99.7 fL (80-94); Mean Platelet Vol. 11.7 fl (6.2-12.0); Monocyte# 0.66 X10^3/uL; Monocyte% 15.4 % (0-10); NRBC Flagged by Analyzer 0 % (0-5); Neutrophil % 60.8 % (47-70); Platelet Count 145 K/mm3 (150-450); RBC Distribution Width CV 15.9 % (11.6-14.6); RBC Distribution Width SD 57.8 fl (35.1-43.9); Red Blood Count 3.78 M/mm3 (4.6-6.2); White Blood Count 4.3 K/mm3 (4.4-11.0)
[2021-05-25 17:36] LABS: Vitamin D,25 Hydroxy 58.7 ng/mL
[2021-05-25 17:44] LABS: ALB/GLOB Ratio 0.8 RATIO (0.9-2.4); AST(SGOT) 21 U/L (15-37); Alanine Aminotransfer ALT/SGPT 23 U/L (16-61); Albumin, Serum 3.2 g/dL (3.2-5.0); Alkaline Phosphatase 90 U/L (45-117); Anion Gap 3 (5-15); BUN 29 mg/dL (7-18); BUN/Creat Ratio 16.6 RATIO (10-20); Calcium,Total 8.6 mg/dL (8.5-10.1); Chloride 105 mmol/L (98-107); Creatinine, Serum 1.75 mg/dL (0.70-1.30); EST Glomerular Filtration Rate 40 mL/min (>60); Est Glom Filt Rate - Afr Amer 48 mL/min (>60); Globulin 3.9 g/dL (2.2-4.2); Glucose 119 mg/dL (74-106); Potassium 4.5 mmol/L (3.5-5.1); Protein, Total 7.1 g/dL (6.4-8.2); Sodium Level 141 mmol/L (136-145)
== END ==
PROVIDERS: PCP Family Medicine Geriatric Medicine; Visit Provider Family Medicine Geriatric Medicine
DX: R53.83 Other fatigue (principal); E55.9 Vitamin D deficiency, unspecified
CPT/HCPCS: 36415; 80053; 82306; 84443; 85025

== ENCOUNTER 2021-07-30 14:03 | Outpatient (CLI) | payer MEDICARE, OTHER, SELFPAY ==
[2021-07-30 16:33] LABS: Absolute Lymphocyte Count 0.71 X10^3/uL (0.83-4.51); Absolute Neutrophil Count 2.2 X10^3/uL (2.0-7.7); Basophil# 0.05 X10^3/uL; Basophil% 1.3 % (0-1); Eosinophil# 0.13 X10^3/uL; Eosinophils% 3.5 % (0-5); Hematocrit 34.2 % (40-54); Hemoglobin 10.8 g/dL (13.0-16.5); Lymphocyte # 0.71 X10^3/ul (0.83-4.51); Mean Corp Hgb Conc 31.6 g/dL (32-36); Mean Corpuscular Hgb 32.2 pg (27.0-32.0); Mean Corpuscular Volume 102.1 fL (80-94); Mean Platelet Vol. 11.3 fl (6.2-12.0); Monocyte# 0.65 X10^3/uL; Monocyte% 17.4 % (0-10); NRBC Flagged by Analyzer 0 % (0-5); Neutrophil # 2.18 X10^3/uL (2.7-7.7); Neutrophil % 58.3 % (47-70); POSITIVE MORPHOLOGY YES; Platelet Count 105 K/mm3 (150-450); RBC Distribution Width SD 68.4 fl (35.1-43.9); Red Blood Count 3.35 M/mm3 (4.6-6.2); White Blood Count 3.7 K/mm3 (4.4-11.0)
[2021-07-30 16:48] LABS: Differential Indicated SCAN CRITERIA MET
[2021-07-30 16:54] LABS: Anion Gap 6 (5-15); BUN 50 mg/dL (7-18); BUN/Creat Ratio 28.2 RATIO (10-20); Calcium,Total 8.8 mg/dL (8.5-10.1); Chloride 103 mmol/L (98-107); Creatinine, Serum 1.77 mg/dL (0.70-1.30); EST Glomerular Filtration Rate 39 mL/min (>60); Est Glom Filt Rate - Afr Amer 47 mL/min (>60); Glucose 115 mg/dL (74-106); Potassium 4.5 mmol/L (3.5-5.1); Sodium Level 141 mmol/L (136-145)
[2021-07-30 17:11] LABS: Differential Comment SCANNED
== END 2021-07-30 23:59 | disposition short-term general hospital (02) ==
LOC: POLAB3 14:05
PROVIDERS: PCP Family Medicine Geriatric Medicine; Visit Provider Family Medicine Geriatric Medicine
DX: R53.83 Other fatigue (principal)
CPT/HCPCS: 36415; 80048; 85025

== ENCOUNTER 2021-08-02 13:07 | Emergency (ER) | payer MEDICARE, OTHER, SELFPAY ==
[2021-08-02] VITALS (9 sets, daily range): BP systolic 120–134; BP diastolic 79–86; PULSE 84–109; RESP 14–22; TEMP 36.9; O2SAT 95–99; BMI 28.6
--- NOTE | 2021-08-02 14:05 | EKG12_ITS ---
Test Reason : SOB Blood Pressure : / mmHG Vent. Rate : 087 BPM Atrial Rate : 053 BPM P-R Int : 000 ms QRS Dur : 096 ms QT Int : 380 ms P-R-T Axes : 000 014 241 degrees QTc Int : 457 ms Atrial fibrillation Low voltage QRS Inferior infarct , age undetermined ST & T wave abnormality, consider anterolateral ischemia Abnormal ECG Confirmed by COLIN ROBERT, JUSTIN ([id number]), publications editor SAMPSON BURGER ([id number]) on 08/03/2021 1:04:00 PM Referred By: JACQUIE Confirmed By:JUSTIN SHAW MD
[2021-08-02] MEDS: Albuterol 2.5 MG/3 ML VIAL.NEB. INHALATION (14:20)
[2021-08-02] MEDS: Ipratropium/Albuterol Sulfate 3 ML AMPUL.NEB INHALATION (14:20)
[2021-08-02] MEDS: MethylPREDNISolone 125 MG/2 ML Vial IV (14:37)
--- NOTE | 2021-08-02 14:50 | RAD_ITS ---
STUDY: X-RAY CHEST REASON FOR EXAM: Male, 86 years old. cough TECHNIQUE: Single AP portable view of the chest. COMPARISON: 02/19/2021 FINDINGS: Left subclavian dual-lead AICD which is unchanged. Status post median sternotomy. The lungs are clear and expanded. There is no demonstrated pleural abnormality. There is moderate cardiac enlargement. Normal mediastinum and kaylene. Normal visualized pulmonary arteries. Normal visualized aortic arch and descending thoracic aorta. Normal visualized thoracic spine. Normal visualized ribs, clavicles, and shoulders. There is no demonstrated abnormality of the visualized soft tissue structures of the upper abdomen. RAD/Chest 1 View (Portable) IMPRESSION: No change from 02/19/2021. Electronically Signed: Prabhu Brewer MD at 15:25 EST Tel , Service support ,
[2021-08-02 15:02] LABS: Absolute Lymphocyte Count 0.36 X10^3/uL (0.83-4.51); Absolute Neutrophil Count 4.8 X10^3/uL (2.0-7.7); Basophil# 0.02 X10^3/uL; Basophil% 0.4 % (0-1); Eosinophil# 0.04 X10^3/uL; Eosinophils% 0.7 % (0-5); Hematocrit 34.7 % (40-54); Hemoglobin 10.8 g/dL (13.0-16.5); Lymphocyte # 0.36 X10^3/ul (0.83-4.51); Lymphocyte % 6.3 % (19-41); Mean Corp Hgb Conc 31.1 g/dL (32-36); Mean Corpuscular Hgb 31.9 pg (27.0-32.0); Mean Corpuscular Volume 102.4 fL (80-94); Mean Platelet Vol. 11.6 fl (6.2-12.0); Monocyte# 0.41 X10^3/uL; Monocyte% 7.2 % (0-10); NRBC Flagged by Analyzer 0 % (0-5); Neutrophil # 4.84 X10^3/uL (2.7-7.7); Neutrophil % 84.7 % (47-70); POSITIVE DIFFERENTIAL YES; POSITIVE MORPHOLOGY YES; Platelet Count 122 K/mm3 (150-450); RBC Distribution Width CV 18.2 % (11.6-14.6); RBC Distribution Width SD 70.1 fl (35.1-43.9); Red Blood Count 3.39 M/mm3 (4.6-6.2); White Blood Count 5.7 K/mm3 (4.4-11.0)
[2021-08-02 15:14] LABS: ALB/GLOB Ratio 0.9 RATIO (0.9-2.4); AST(SGOT) 18 U/L (15-37); Alanine Aminotransfer ALT/SGPT 26 U/L (16-61); Albumin, Serum 3.5 g/dL (3.2-5.0); Alkaline Phosphatase 78 U/L (45-117); Anion Gap 5 (5-15); BUN 54 mg/dL (7-18); Calcium,Total 8.9 mg/dL (8.5-10.1); Chloride 103 mmol/L (98-107); Creatinine, Serum 1.93 mg/dL (0.70-1.30); EST Glomerular Filtration Rate 35 mL/min (>60); Est Glom Filt Rate - Afr Amer 43 mL/min (>60); Globulin 3.8 g/dL (2.2-4.2); Glucose 136 mg/dL (74-106); Potassium 4.6 mmol/L (3.5-5.1); Protein, Total 7.3 g/dL (6.4-8.2); Sodium Level 142 mmol/L (136-145); Troponin-I HS 18 pg/mL (3.0-78.0)
[2021-08-02 15:17] LABS: Differential Indicated SCAN CRITERIA MET
[2021-08-02 15:24] LABS: Lactic Acid 1.2 mmol/L (0.4-1.9)
[2021-08-02 15:28] LABS: BNP,B-Type NATRIURETIC PEPTIDE 2039.1 pg/mL (0-100)
[2021-08-02 15:33] LABS: Differential Comment SCANNED
[2021-08-02 15:34] LABS: Anisocytosis 2+; Macrocytosis 1+; Microcytosis 1+
--- NOTE | 2021-08-02 17:16 | EX.ED.VIS.UR ---
HPI HPI - URI History of Present Illness Chief Complaint: Shortness of Breath Narrative Narrative: 86-year-old male presenting with slight cough and wheezing. He has mild shortness of breath. He is not had fever, chills, myalgias, change in taste or smell. He states he feels otherwise well. Has been wheezing for a couple of days. He states he has an inhaler prescribed to him but he did not fill it. He denies chest pain. Patient does have history of hypertension, CAD, COPD, A. fib, CHF. ROS ROS ED Constitutional Constitutional ED: Denies chills or fever(s) Eyes Eyes: Denies blurry vision or diplopia ENT ENT ED: Denies rhinorrhea or sore throat Cardiovascular Cardiovascular: Denies chest pain or palpitations Respiratory/Chest Respiratory/Chest: Reports cough and dyspnea Gastrointestinal Gastrointestinal: Denies abdominal pain, nausea or vomiting Genitourinary Genitourinary ED: Denies dysuria or hematuria Musculoskeletal Musculoskeletal: Denies arthralgias or myalgias Integumentary Denies Abrasions or rash Neurologic Neurologic: Denies headache(s) or paresthesias PFSH PFSH Medical History Atherosclerosis of coronary artery of [place] heart without angina pectoris Cancer Cardiology follow-up encounter Congestive heart failure (CHF) Coronary artery disease Depression Former smoker Hearing loss, left Hearing loss, right History of renal disease Hx of echocardiogram (~10/10/20) Hx of transesophageal echocardiography (TYRA) for monitoring (~04/29/17) Hypertension Irregular heart beat Ischemic cardiomyopathy Loss of hearing On home oxygen therapy Pacemaker Walker as ambulation aid Weakness Home Medications finasteride 5 mg PO DAILY 09/22/20 [History Last Taken 12/26/20 06:15] carvedilol 12.5 mg PO BID 12/26/20 [History Last Taken 12/26/20 06:14] acetaminophen 1,000 mg PO TID 12/30/20 [History Last Taken Unknown] citalopram 10 mg PO DAILY 30 Days #30 tab 02/03/21 [Rx Last Taken 12/26/20 06:14] furosemide 40 mg PO BID 30 Days #60 tab 02/03/21 [Rx Last Taken Unknown] Oneil Multivitamin For Men 1 unit PO/SL DAILY 03/03/21 [History Last Taken Unknown] [place] 3 1 mg PO/SL BID 03/03/21 [History Last Taken Unknown] albuterol sulfate [ProAir HFA] 2 puff INHALATION PRN PRN 03/03/21 [History Last Taken Unknown] cholecalciferol (vitamin D3) [Vitamin D3] 25 mcg PO DAILY 03/03/21 [History Last Taken Unknown] potassium chloride [Klor-Con M20] 10 meq PO BIDCM 03/03/21 [History Last Taken Unknown] sacubitril-valsartan [Entresto] 1 tab PO BID 03/03/21 [History Last Taken Unknown] tamsulosin [Flomax] 0.8 mg PO BID 03/03/21 [History Last Taken Unknown] vitamin [id number] acid [Foltrate] 1 tab PO DAILY 03/03/21 [History Last Taken Unknown] vitamin E 1,000 unit PO DAILY 03/03/21 [History Last Taken Unknown] multivitamin with iron-mineral [Oneil For Men] 1 tab PO DAILY 03/09/21 [History Last Taken Unknown] apixaban 2.5 mg tablet 2.5 mg PO BID #180 tab 05/05/21 [Rx Last Taken Unknown] prednisone 50 mg PO DAILY 5 Days #25 tab 08/02/21 [Rx Last Taken Unknown] Allergy/AdvReac Type Severity Reaction Status Date / Time ofloxacin [From Floxin] Allergy migraine Verified 08/02/21 13:10 diphenhydramine AdvReac shuts off Verified 08/02/21 13:10 [From Benadryl] my urine Family History Mother Heart problem Brother Dialysis patient Surgical History H/O colectomy History of back surgery History of benign neoplasm of salivary gland History of cardiac catheterization (~05/08/17) History of cataract extraction History of coronary artery bypass graft History of open heart surgery History of umbilical hernia repair ICD (implantable cardioverter-defibrillator) in place Social History household members: none Smoking Status: Former smoker how long ago did patient quit smokin's alcohol intake: never substance use type: does not use well-balanced diet: other details: Fluid restrictions 48 ozs per day caffeine: Yes Type: coffee Number of servings: 1 EXAM Physical Exam Const Vital Signs: 08/02/21 13:08 08/02/21 13:43 08/02/21 14:21 Temperature 98.4 F Temperature Source Temporal Pulse Rate 89 89 88 Respiratory Rate 14 18 14 Respiratory Effort Short of Breath Respiratory Depth Normal Respiratory Pattern Tachypnea Normal Blood Pressure 128/79 H Blood Pressure Mean 95 Pulse Ox 95 95 Oxygen Delivery Method Nasal Cannula Nasal Cannula Oxygen Flow Rate (L/min) 1 2 08/02/21 14:38 08/02/21 15:00 08/02/21 16:00 Temperature Temperature Source Pulse Rate 89 84 88 Respiratory Rate 18 14 16 Respiratory Effort Respiratory Depth Respiratory Pattern Blood Pressure 120/79 134/86 H Blood Pressure Mean 92 102 Pulse Ox 98 98 Oxygen Delivery Method Room Air Nasal Cannula Nasal Cannula Oxygen Flow Rate (L/min) 2 2 Positive well nourished General Appearance ED: NAD; Negative for pallor HEENT Reports moist mucous membranes normocephalic and atraumatic Eyes PERRL and EOMs intact bilaterally Neck supple and no meningeal signs Cardio Rate: regular rate Rhythm: regular rhythm Extremity normal to inspection General Extremety ED: Negative for tenderness Neuro No oriented x3 Sensorium / Orientation: Negative for alert Psych mental status grossly normal Skin General Skin Exam: Negative for jaundice or pallor MDM MDM MDM Narrative Medical decision making narrative: Patient presenting with wheezing and mild shortness of breath. Otherwise he feels well. I did obtain an EKG which on my interpretation shows what is likely atrial fibrillation with controlled ventricular response at 87 bpm. Patient has history of atrial fibrillation and is anticoagulated on Eliquis. There is a lot of artifact on EKG which obscures some of the read. There does not appear to be any ischemic change. Chest x-ray on my interpretation shows no acute cardiopulmonary process and the radiologist does agree. Creatinine slightly elevated above baseline at 1.93. Electrolytes are normal. CBC shows no leukocytosis and his hemoglobin is at baseline. BNP is elevated at 2038 however on last check it was around this level and his chest x-ray has not changed he does not like the edematous so I do not believe he is in acute CHF. Lactic acid 1.2. Patient was given Solu-Medrol and breathing treatments and on reevaluation he feels improved. He feels comfortable being discharged home and I will start him on a prednisone burst and he was given an albuterol inhaler from the emergency room. He is given return precautions and counseled to hydrate well at home. Impression: 1. Acute bronchitis with wheezing 2. Acute on chronic renal disease Lab Data Labs: Laboratory Results - last 24 hr 08/02/21 08/02/21 08/02/21 14:40 14:40 14:40 WBC 5.7 RBC 3.39 L Hgb 10.8 L Hct 34.7 L MCV 102.4 H MCH 31.9 MCHC 31.1 L RDW Std Deviation 70.1 H RDW Coeff of Daryl 18.2 H Plt Count 122 L MPV 11.6 Immature Gran % (Auto) 0.700 Neut % (Auto) 84.7 H Lymph % (Auto) 6.3 L [place] % (Auto) 7.2 Eos % (Auto) 0.7 Baso % (Auto) 0.4 Absolute Neuts (auto) 4.8 Absolute Lymphs (auto) 0.36 L Nucleated RBC % 0 Differential Comment SCANNED Anisocytosis 2+ Microcytosis 1+ Macrocytosis 1+ Sodium 142 Potassium 4.6 Chloride 103 Carbon Dioxide 34.0 H Anion Gap 5 BUN 54 H Creatinine 1.93 H Estim Creat Clear Calc 23.90 Est GFR (MDRD) Af Amer 43 L Est GFR (MDRD) Non-Af 35 L BUN/Creatinine Ratio 28.0 H Glucose 136 H Lactic Acid 1.2 Calcium 8.9 Total Bilirubin 0.50 AST 18 ALT 26 Alkaline Phosphatase 78 Troponin I High Sens 18 B-Natriuretic Peptide Total Protein 7.3 Albumin 3.5 Globulin 3.8 Albumin/Globulin Ratio 0.9 08/02/21 14:40 WBC RBC Hgb Hct MCV MCH MCHC RDW Std Deviation RDW Coeff of Daryl Plt Count MPV Immature Gran % (Auto) Neut % (Auto) Lymph % (Auto) [place] % (Auto) Eos % (Auto) Baso % (Auto) Absolute Neuts (auto) Absolute Lymphs (auto) Nucleated RBC % Differential Comment Anisocytosis Microcytosis Macrocytosis Sodium Potassium Chloride Carbon Dioxide Anion Gap BUN Creatinine Estim Creat Clear Calc Est GFR (MDRD) Af Amer Est GFR (MDRD) Non-Af BUN/Creatinine Ratio Glucose Lactic Acid Calcium Total Bilirubin AST ALT Alkaline Phosphatase Troponin I High Sens B-Natriuretic Peptide 9.1 H Total Protein Albumin Globulin Albumin/Globulin Ratio Radiography Diagnostic Testing: Clinical Impression(s) from Imaging Studies Chest X-Ray 08/02/21 14:50 IMPRESSION: No change from 02/19/2021. Electronically Signed: Prabhu Brewer MD at 15:25 EST Tel , Service support , Discharge Plan Triage Chief Complaint: Shortness of Breath ED Provider: Arnel Kerr Dx/Rx/DC Orders Instructions: ED Bronchitis with Wheezing (Adult) Prescriptions: New prednisone 10 mg tablet 50 mg PO DAILY 5 Days Qty: 25 RF: 0 No Action finasteride 5 MG tablet 5 mg PO DAILY RF: 0 carvedilol 12.5 mg tablet 12.5 mg PO BID RF: 0 acetaminophen 500 mg tablet 1,000 mg PO TID RF: 0 furosemide 40 mg tablet 40 mg PO BID 30 Days Qty: 60 RF: 0 citalopram 10 MG tablet 10 mg PO DAILY 30 Days Qty: 30 RF: 0 albuterol sulfate [ProAir HFA] 90 mcg/actuation HFA aerosol inhaler 2 puff INHALATION PRN PRN (Reason: Shortness Of Breath Or Wheezing) RF: 0 Entresto 49-51 mg tablet 1 tab PO BID RF: 0 [place] 3 1,200 mcg capsule 1 mg PO/SL BID RF: 0 cholecalciferol (vitamin D3) [Vitamin D3] 25 mcg (1,000 unit) Capsule 25 mcg PO DAILY RF: 0 vitamin E 1,000 unit Capsule 1,000 unit PO DAILY RF: 0 Foltrate 0.5-1 mg Tablet 1 tab PO DAILY RF: 0 Oneil Multivitamin For Men capsule 1 unit PO/SL DAILY RF: 0 potassium chloride [Klor-Con M20] 20 mEq tablet,ER particles/crystals 10 meq PO BIDCM RF: 0 tamsulosin [Flomax] 0.4 mg capsule 0.8 mg PO BID RF: 0 Oneil For Men Tablet 1 tab PO DAILY RF: 0 Eliquis 2.5 mg tablet 2.5 mg PO BID Qty: 180 RF: 3 Primary Care Provider: Melvin Kraft Chi Referrals: Melvin Kraft Chi, MD [Primary Care Provider] - Disposition Disposition: Home, Self Care
== END 2021-08-02 18:08 | disposition home or self-care (01) ==
PROVIDERS: Emergency Provider Student in an Organized Health Care Education/Training Program; PCP Family Medicine Geriatric Medicine; Visit Provider Student in an Organized Health Care Education/Training Program
DX: J44.0 Chronic obstructive pulmonary disease with (acute) lower respiratory infection (principal); N17.9 Acute kidney failure, unspecified; I13.0 Hypertensive heart and chronic kidney disease with heart failure and stage 1 through stage 4 chronic kidney disease, or unspecified chronic kidney disease; I50.9 Heart failure, unspecified; I48.91 Unspecified atrial fibrillation; J20.9 Acute bronchitis, unspecified; Z95.810 Presence of automatic (implantable) cardiac defibrillator; I25.10 Atherosclerotic heart disease of native coronary artery without angina pectoris; I25.5 Ischemic cardiomyopathy; Z87.891 Personal history of nicotine dependence; F32.A Depression, unspecified; Z99.81 Dependence on supplemental oxygen; Z79.899 Other long term (current) drug therapy; H91.93 Unspecified hearing loss, bilateral; Z79.01 Long term (current) use of anticoagulants; Z95.1 Presence of aortocoronary bypass graft; N18.9 Chronic kidney disease, unspecified
CPT/HCPCS: 71045; 80053; 83605; 83880; 84484; 85025; 87426; 93005; 94640; 96374; 99284; A4216

== ENCOUNTER 2021-08-06 14:48 | Outpatient (CLI) | payer MEDICARE, OTHER, SELFPAY ==
[2021-08-06 17:17] LABS: Anion Gap 4 (5-15); BUN 53 mg/dL (7-18); BUN/Creat Ratio 30.8 RATIO (10-20); Calcium,Total 8.9 mg/dL (8.5-10.1); Chloride 103 mmol/L (98-107); Creatinine, Serum 1.72 mg/dL (0.70-1.30); EST Glomerular Filtration Rate 40 mL/min (>60); Est Glom Filt Rate - Afr Amer 49 mL/min (>60); Glucose 131 mg/dL (74-106); Potassium 4.9 mmol/L (3.5-5.1); Sodium Level 142 mmol/L (136-145)
== END 2021-08-06 23:59 | disposition short-term general hospital (02) ==
PROVIDERS: PCP Family Medicine Geriatric Medicine; Visit Provider Family Medicine Geriatric Medicine
DX: I50.23 Acute on chronic systolic (congestive) heart failure (principal)
CPT/HCPCS: 36415; 80048

== ENCOUNTER 2021-08-10 14:17 | Outpatient (CLI) | payer MEDICARE, OTHER, SELFPAY ==
[2021-08-10 17:15] LABS: Anion Gap 5 (5-15); BUN 74 mg/dL (7-18); BUN/Creat Ratio 33.6 RATIO (10-20); Chloride 94 mmol/L (98-107); EST Glomerular Filtration Rate 30 mL/min (>60); Est Glom Filt Rate - Afr Amer 37 mL/min (>60); Glucose 184 mg/dL (74-106); Potassium 4.7 mmol/L (3.5-5.1); Sodium Level 137 mmol/L (136-145)
== END 2021-08-10 23:59 | disposition short-term general hospital (02) ==
PROVIDERS: PCP Family Medicine Geriatric Medicine; Visit Provider Family Medicine Geriatric Medicine
DX: E87.6 Hypokalemia (principal)
CPT/HCPCS: 36415; 80048

== ENCOUNTER 2021-08-14 10:03 | Outpatient (CLI) | payer MEDICARE, OTHER, SELFPAY ==
[2021-08-14 12:49] LABS: Anion Gap 5 (5-15); BUN 111 mg/dL (7-18); BUN/Creat Ratio 39.6 RATIO (10-20); Calcium,Total 7.9 mg/dL (8.5-10.1); Chloride 95 mmol/L (98-107); EST Glomerular Filtration Rate 23 mL/min (>60); Est Glom Filt Rate - Afr Amer 28 mL/min (>60); Glucose 124 mg/dL (74-106); Potassium 4.9 mmol/L (3.5-5.1); Sodium Level 136 mmol/L (136-145)
== END 2021-08-14 23:59 | disposition short-term general hospital (02) ==
LOC: LAB.FUTURE 10:04 → POLAB3 08-18 07:56
PROVIDERS: PCP Family Medicine Geriatric Medicine; Visit Provider Family Medicine Geriatric Medicine
DX: E87.6 Hypokalemia (principal)
CPT/HCPCS: 36415; 80048

== ENCOUNTER 2021-08-17 11:28 | Outpatient (CLI) | payer MEDICARE, OTHER, SELFPAY ==
[2021-08-17 12:22] LABS: Anion Gap 6 (5-15); BUN 99 mg/dL (7-18); Calcium,Total 8.1 mg/dL (8.5-10.1); Chloride 97 mmol/L (98-107); Creatinine, Serum 2.25 mg/dL (0.70-1.30); EST Glomerular Filtration Rate 30 mL/min (>60); Est Glom Filt Rate - Afr Amer 36 mL/min (>60); Glucose 132 mg/dL (74-106); Potassium 4.3 mmol/L (3.5-5.1); Sodium Level 137 mmol/L (136-145)
== END 2021-08-17 23:59 | disposition short-term general hospital (02) ==
LOC: POLAB3 11:30
PROVIDERS: PCP Family Medicine Geriatric Medicine; Visit Provider Family Medicine Geriatric Medicine
DX: N17.9 Acute kidney failure, unspecified (principal)
CPT/HCPCS: 36415; 80048

== ENCOUNTER 2021-08-21 15:11 | Emergency (ER) | payer MEDICARE, OTHER, SELFPAY ==
[2021-08-21 15:11] VITALS: BP 103/65; PULSE 68; RESP 17; TEMP 36.2; O2SAT 91; BMI 27.4
[2021-08-21 15:13] VITALS: BP 103/65; PULSE 68; RESP 17; TEMP 36.2; O2SAT 91
--- NOTE | 2021-08-21 15:24 | EKG12_ITS ---
Test Reason : Blood Pressure : / mmHG Vent. Rate : 079 BPM Atrial Rate : 079 BPM P-R Int : 204 ms QRS Dur : 088 ms QT Int : 354 ms P-R-T Axes : 043 023 158 degrees QTc Int : 405 ms Atrial Flutter with variable block Low voltage QRS ST & T wave abnormality, consider lateral ischemia Abnormal ECG Confirmed by COLIN ROBERT, JUSTIN ([id number]), newspaper editor managing SAMPSON BURGER ([id number]) on 08/24/2021 10:10:00 AM Referred By: MYNOR Confirmed By:JUSTIN SHAW MD
--- NOTE | 2021-08-21 15:25 | EDS_ITS ---
HPI History of Present Illness Chief Complaint: Shortness of Breath Informant: patient Onset/Context/Timing Onset: Weeks Context: gradual Timing: Continuous Quality: Positive for Dyspnea on exertion, Orthopnea (2 pillow which is not normal for patient), PND (2-3 times over the past month) and Wheezing (Denies history of COPD however he is on albuterol. He has not smoked since 1953) Current Severity: Mild Maximum Severity: Moderate Worsened by: Exertion and Lying flat; Not Worsened By Coughing Relieved by: Nothing Associated Symptoms cough and rhinorrhea; Negative for post nasal drip, ear pain, fever, sore throat, subjective, chills, sweats, clear sputum, white sputum, yellow sputum or green sputum Chest Pain: Positive for None Narrative Narrative: Patient is a 6-year-old male with history of congestive heart failure on anticoagulant, pacemaker and AICD who presents with dyspnea that has gr adually gotten worse over the past month and more noticeable over the past week. He does admit to PND 2-3 times this past month. He does admit to wheezing intermittently. He denies history of asthma or COPD. He does not know the type of congestive heart failure he has or what his EF is. He states he may have been over diuresed and was told by his PCP to increase fluid intake. He states he did not. He has had increased swelling of his lower extremities and has had weight gain. He admits to two-pillow orthopnea. He prefer not to sleep with any pillows however he cannot because he becomes short of breath. He denies history of diabetes. He is status post coronary artery bypass surgery x2. He states he has no stents. She denies any urologic symptoms. He denies vomiting, diarrhea, black or maroon-colored stool. He does have nausea states he had loss of appetite over the last day or 2. He states he had Covid September/October 2020. He does have history of BPH. He denies any urologic symptoms. PE Risk Factors: Negative for Cancer, OCP + Smoking + > 35, Prior DVT or PE, Recent immobilization, Recent surgery and Recent travel Prior similar symptoms: Yes (Congestive heart failure) Recent Illness/Hospitalization: No PFSH PFS Medical History Atherosclerosis of coronary artery of [place] heart without angina pectoris Cancer Cardiology follow-up encounter Congestive heart failure (CHF) Coronary artery disease Depression Former smoker Hearing loss, left Hearing loss, right History of renal disease Hx of echocardiogram (~10/10/20) Hx of transesophageal echocardiography (TYRA) for monitoring (~04/29/17) Hypertension Irregular heart beat Ischemic cardiomyopathy Loss of hearing On home oxygen therapy Pacemaker Walker as ambulation aid Weakness Home Medications finasteride 5 mg PO DAILY 09/22/20 [History Last Taken 12/26/20 06:15] carvedilol 12.5 mg PO BID 12/26/20 [History Last Taken 12/26/20 06:14] acetaminophen 1,000 mg PO TID 12/30/20 [History Last Taken Unknown] citalopram 10 mg PO DAILY 30 Days #30 tab 02/03/21 [Rx Last Taken 12/26/20 06:14] Oneil Multivitamin For Men 1 unit PO/SL DAILY 03/03/21 [History Last Taken Unknown] [place] 3 1 mg PO/SL BID 03/03/21 [History Last Taken Unknown] albuterol sulfate [ProAir HFA] 2 puff INHALATION PRN PRN 03/03/21 [History Last Taken Unknown] cholecalciferol (vitamin D3) [Vitamin D3] 25 mcg PO DAILY 03/03/21 [History Last Taken Unknown] potassium chloride [Klor-Con M20] 10 meq PO BIDCM 03/03/21 [History Last Taken Unknown] tamsulosin [Flomax] 0.8 mg PO BID 03/03/21 [History Last Taken Unknown] vitamin [id number] acid [Foltrate] 1 tab PO DAILY 03/03/21 [History Last Taken Unknown] vitamin E 1,000 unit PO DAILY 03/03/21 [History Last Taken Unknown] multivitamin with iron-mineral [Oneil For Men] 1 tab PO DAILY 03/09/21 [History Last Taken Unknown] apixaban 2.5 mg tablet 2.5 mg PO BID #180 tab 05/05/21 [Rx Last Taken Unknown] prednisone 50 mg PO DAILY 5 Days #25 tab 08/02/21 [Rx Last Taken Unknown] furosemide 40 mg PO BID 08/21/21 [History Last Taken Unknown] sacubitril-valsartan [Entresto] 1 tab PO BID 08/21/21 [History Last Taken Unknown] Allergy/AdvReac Type Severity Reaction Status Date / Time ofloxacin [From Floxin] Allergy migraine Verified 08/02/21 13:10 diphenhydramine AdvReac shuts off Verified 08/02/21 13:10 [From Benadryl] my urine Family History Mother Heart problem Brother Dialysis patient Surgical History H/O colectomy History of back surgery History of benign neoplasm of salivary gland History of cardiac catheterization (~05/08/17) History of cataract extraction History of coronary artery bypass graft History of open heart surgery History of umbilical hernia repair ICD (implantable cardioverter-defibrillator) in place Social History household members: none Smoking Status: Former smoker how long ago did patient quit smokin's alcohol intake: never substance use type: does not use well-balanced diet: other details: Fluid restrictions 48 ozs per day caffeine: Yes Type: coffee Number of servings: 1 ROS ROS ED Constitutional Constitutional ED: Denies chills, fever(s), sweats or weight loss Eyes Eyes: Denies blurry vision, change in vision or diplopia ENT ENT ED: Reports rhinorrhea and other Details: Patient reports the rhinorrhea/congestion is chronic. ; Denies ear pain or sore throat Cardiovascular Cardiovascular: Reports orthopnea and paroxysmal nocturnal dyspnea; Denies chest pain, palpitations or racing heartbeat Respiratory/Chest Respiratory/Chest: Reports dyspnea, dyspnea on exertion, orthopnea and paroxysmal nocturnal dyspnea; Denies cough or sputum Gastrointestinal Gastrointestinal: Reports nausea; Denies abdominal pain, constipation, diarrhea, melena or vomiting EXAM Physical Exam Const Vital Signs: 08/21/21 15:11 08/21/21 15:13 08/21/21 15:31 Temperature 97.2 F L 97.2 F L Temperature Source Temporal Temporal Pulse Rate 68 68 Respiratory Rate 17 17 Respiratory Effort Respiratory Depth Respiratory Pattern Blood Pressure 103/65 103/65 Blood Pressure Mean 77 77 Pulse Ox 91 91 98 Oxygen Delivery Method Nasal Cannula Nasal Cannula Nasal Cannula Oxygen Flow Rate (L/min) 2 2 2 08/21/21 16:03 08/21/21 16:17 Temperature Temperature Source Pulse Rate Respiratory Rate Respiratory Effort Short of Breath Respiratory Depth Normal Respiratory Pattern Normal Blood Pressure 102/71 Blood Pressure Mean 81 Pulse Ox Oxygen Delivery Method Nasal Cannula Oxygen Flow Rate (L/min) 2 Positive well nourished, well developed and obese; Negative for cachectic, contractures or unkempt General Appearance ED: well developed and pallor; Negative for unkempt, cachectic, contractures or NAD Nutritional Appearance: obese; Negative for cachectic HEENT Reports TM's clear and moist mucous membranes atraumatic; Negative for trauma or tenderness Tympanic Membrane ED: Yes TM's clear Eyes PERRL and EOMs intact bilaterally General Eye ED: Negative for pale conjunctiva or scleral icterus Neck no lymphadenopathy, supple, no meningeal signs and no JVD General: Negative for tenderness Resp No normal respiratory effort and No clear to auscultation bilaterally Auscultation: wheezes and diminished lung sounds; Negative for rales or rhonchi Cardio no murmurs Rhythm: abnormal rhythm other (Monitor reveals paced beats intrinsic beats and PVCs. Rate is 70-80) GI non-tender, non-distended and no masses Inspection: other Other Details: No pulsatile mass or abdominal bruit Auscultation: normoactive bowel sounds Palpation: soft; Negative for hepatomegaly, splenomegaly or mass Back/Spine no CVA tenderness and normal to inspection Extremity Negative for normal to inspection Extremity Narrative: Patient has marked pitting edema of the feet and anterior right and left leg. General Extremety ED: Yes edema; Negative for tenderness General Extremity: edema Neuro oriented x3, CN's II-XII intact bilaterally and no sensory deficits noted Sensorium / Orientation: alert Motor Exam: strength 5/5 throughout Psych mental status grossly normal Appearance: Negative for unkempt Thought Process: normal thought process Skin no wounds General Skin Exam: pallor; Negative for jaundice Lesions: no lesions Rashes: no rashes MDM MDM MDM Narrative Medical decision making narrative: Patient presents with increasing dyspnea and dyspnea exertion with orthopnea PND. Need to rule out cardiac etiology i.e. ischemia versus noncompliance versus renal disease versus other cause. Chest x- ray is obtained to determine if there is evidence of pneumonia or congestive heart failure prior to treating his wheezing which may be due to congestive heart failure. CBC was obtained to rule out anemia, BMP to assess renal function since he reports problems with his kidney function as well as troponin and BNP. Clinically he is fluid overloaded. Patient does have history of chronic respiratory failure requiring home oxygen at 1 L. Patient was reassessed at 1652. He has diuresed greater than 500 cc of urine. His vital signs have been stable. Plan is to discharge to home. 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 Spoke with Dr. Ferguson on-call for the cardiology group. He requested patient to call office on Tuesday. Agrees with increasing Lasix to 80 mg in the morning and stay at 40 mg at night Lab Data Labs: Laboratory Results - last 24 hr 08/21/21 08/21/21 08/21/21 15:22 15:22 15:22 WBC 4.1 L RBC 3.04 L Hgb 10.0 L Hct 30.5 L MCV 100.3 H MCH 32.9 H MCHC 32.8 RDW Std Deviation 62.8 H RDW Coeff of Dayrl 17.0 H Plt Count 108 L MPV 11.8 Immature Gran % (Auto) 1.200 H Neut % (Auto) 75.3 H Lymph % (Auto) 10.3 L [place] % (Auto) 10.0 Eos % (Auto) 2.7 Baso % (Auto) 0.5 Absolute Neuts (auto) 3.1 Absolute Lymphs (auto) 0.42 L Nucleated RBC % 0 Differential Comment SCANNED Diff Path Review November foll Sodium 139 Potassium 5.1 Chloride 107 Carbon Dioxide 28.0 Anion Gap 4 L BUN 80 H Creatinine 1.96 H Estim Creat Clear Calc 24.41 Est GFR (MDRD) Af Amer 42 L Est GFR (MDRD) Non-Af 35 L BUN/Creatinine Ratio 40.8 H Glucose 135 H Calcium 8.7 Troponin I High Sens 22 B-Natriuretic Peptide 2839.1 H Troponin has been above 7 prior. Last troponin was 18. Patient having symptoms for 1 month and a troponin of 22 this does not need to be repeated at this time. Last echo was December 2020. EF was estimated between 35 and 40%. He has a bioprosthetic mitral valve. Since the chest x-ray reveals congestive heart fa ilure patient has respiratory distress clinically is fluid overloaded 60 mg of Lasix was ordered and 1 inch Nitropaste for preload reduction. Radiography Chest X-Ray - ED: 2 View, Read by ED Physician (2 view chest x-ray is interpreted by me at 1553. X-rays consistent with congestive heart failure.), Bony Structures, Cardiomegaly and CHF Diagnostic Testing: Clinical Impression(s) from Imaging Studies Chest X-Ray 08/21/21 15:45 IMPRESSION: 1. Unfavorable change. Mild interstitial edema/CHF. Electronically Signed: Abdullahi Russ MD ([place]) at 15:59 EST , EKG Initial EKG: Attestation: I personally reviewed and interpreted this EKG as follows: Interpretation: - (Sinus rhythm with frequent premature ventricular beats that are paced. WI interval is 204 ms. QS duration 88 ms. QT duration 3 to 54 ms. [place] is normal. Patient has low voltage, intrinsic beats, and there is no ossific ST-T wave changes will need to compare to prior.) Discharge Plan Triage Chief Complaint: Shortness of Breath ED Provider: Francisco Dejesus Dx/Rx/DC Orders Clinical Impression: History of atrial fibrillation, Ischemic cardiomyopathy, Anticoagulant long- term use, Acute exacerbation of CHF (congestive heart failure), End stage chroni c kidney disease Instructions: ED CHF Left Side Prescriptions: No Action finasteride 5 MG tablet 5 mg PO DAILY RF: 0 carvedilol 12.5 mg tablet 12.5 mg PO BID RF: 0 acetaminophen 500 mg tablet 1,000 mg PO TID RF: 0 citalopram 10 MG tablet 10 mg PO DAILY 30 Days Qty: 30 RF: 0 albuterol sulfate [ProAir HFA] 90 mcg/actuation HFA aerosol inhaler 2 puff INHALATION PRN PRN (Reason: Shortness Of Breath Or Wheezing) RF: 0 [place] 3 1,200 mcg capsule 1 mg PO/SL BID RF: 0 cholecalciferol (vitamin D3) [Vitamin D3] 25 mcg (1,000 unit) Capsule 25 mcg PO DAILY RF: 0 vitamin E 1,000 unit Capsule 1,000 unit PO DAILY RF: 0 Foltrate 0.5-1 mg Tablet 1 tab PO DAILY RF: 0 Oneil Multivitamin For Men capsule 1 unit PO/SL DAILY RF: 0 potassium chloride [Klor-Con M20] 20 mEq tablet,ER particles/crystals 10 meq PO BIDCM RF: 0 tamsulosin [Flomax] 0.4 mg capsule 0.8 mg PO BID RF: 0 Oneil For Men Tablet 1 tab PO DAILY RF: 0 prednisone 10 mg tablet 50 mg PO DAILY 5 Days Qty: 25 RF: 0 furosemide 40 mg tablet 40 mg PO BID RF: 0 Entresto 97-103 mg tablet 1 tab PO BID RF: 0 Eliquis 2.5 mg tablet 2.5 mg PO BID Qty: 180 RF: 3 Primary Care Provider: Melvin Kraft Chi Referrals: Melvin Kraft Chi, MD [Primary Care Provider] - Activity Restrictions/Additional Instructions: Increase Lasix to to 40 mg tablets in the morning for the next 4 days. Call fleet salesperson office Tuesday to be seen this coming week Disposition Disposition: Home, Self Care
[2021-08-21 15:31] VITALS: O2SAT 98
[2021-08-21 15:45] LABS: Absolute Lymphocyte Count 0.42 X10^3/uL (0.83-4.51); Absolute Neutrophil Count 3.1 X10^3/uL (2.0-7.7); Basophil# 0.02 X10^3/uL; Basophil% 0.5 % (0-1); Eosinophil# 0.11 X10^3/uL; Eosinophils% 2.7 % (0-5); Hematocrit 30.5 % (40-54); Lymphocyte # 0.42 X10^3/ul (0.83-4.51); Lymphocyte % 10.3 % (19-41); Mean Corp Hgb Conc 32.8 g/dL (32-36); Mean Corpuscular Hgb 32.9 pg (27.0-32.0); Mean Corpuscular Volume 100.3 fL (80-94); Mean Platelet Vol. 11.8 fl (6.2-12.0); Monocyte# 0.41 X10^3/uL; NRBC Flagged by Analyzer 0 % (0-5); Neutrophil # 3.07 X10^3/uL (2.7-7.7); Neutrophil % 75.3 % (47-70); POSITIVE DIFFERENTIAL YES; Platelet Count 108 K/mm3 (150-450); RBC Distribution Width SD 62.8 fl (35.1-43.9); Red Blood Count 3.04 M/mm3 (4.6-6.2); White Blood Count 4.1 K/mm3 (4.4-11.0)
--- NOTE | 2021-08-21 15:45 | RAD_ITS ---
STUDY: X-RAY CHEST REASON FOR EXAM: Male, 86 years old. Dyspnea, [place], PND, weight gain TECHNIQUE: AP COMPARISON: 08/02/2021 FINDINGS: EKG leads project over the chest. Two lead cardiac conduction device is seen via the left subclavian vein with lead tips projecting over the right atrium and right ventricle, respectively. Sternal wires and mediastinal surgical clips compatible with prior CABG. Bilateral pulmonary granulomata stable. Increased interstitial and groundglass opacities of the right with the left lung since the prior study. No sizable pleural effusion. There is moderate cardiac enlargement. Normal mediastinum and kaylene. Central pulmonary vascular congestion. There is atherosclerotic calcification of the aortic arch with tortuosity. There is demineralization of the osseous structures. Normal visualized ribs, clavicles, and shoulders. There is no demonstrated abnormality of the visualized soft tissue structures of the upper abdomen. RAD/Chest PA and Lateral IMPRESSION: 1. Unfavorable change. Mild interstitial edema/CHF. Electronically Signed: Abdullahi Russ MD ([place]) at 15:59 EST ,
[2021-08-21 15:54] LABS: Differential Indicated SCAN CRITERIA MET
[2021-08-21 16:01] LABS: Anion Gap 4 (5-15); BUN 80 mg/dL (7-18); BUN/Creat Ratio 40.8 RATIO (10-20); Calcium,Total 8.7 mg/dL (8.5-10.1); Chloride 107 mmol/L (98-107); Creatinine, Serum 1.96 mg/dL (0.70-1.30); EST Glomerular Filtration Rate 35 mL/min (>60); Est Glom Filt Rate - Afr Amer 42 mL/min (>60); Estimated Creatinine Clearance 24.41 ml/min; Glucose 135 mg/dL (74-106); Potassium 5.1 mmol/L (3.5-5.1); Sodium Level 139 mmol/L (136-145); Troponin-I HS 22 pg/mL (3.0-78.0)
[2021-08-21 16:03] VITALS: O2SAT 95
[2021-08-21] MEDS: Furosemide 100 MG/10 ML Vial 60 MG IV (16:14)
[2021-08-21 16:17] VITALS: BP 102/71
--- NOTE | 2021-08-21 16:30 | ED.RN ---
Per Dr. Garrett hold off on Nitro bid for BP 102/71
[2021-08-21 16:47] LABS: Differential Comment SCANNED
[2021-08-21 18:15] VITALS: BP 101/48; PULSE 92; RESP 17; O2SAT 97
[2021-08-24 15:04] LABS: Pathologist Review Reviewed
== END 2021-08-21 18:31 | disposition home or self-care (01) ==
PROVIDERS: Emergency Provider Emergency Medicine; PCP Family Medicine Geriatric Medicine; Visit Provider Emergency Medicine
DX: I13.2 Hypertensive heart and chronic kidney disease with heart failure and with stage 5 chronic kidney disease, or end stage renal disease (principal); I50.9 Heart failure, unspecified; N18.6 End stage renal disease; J96.10 Chronic respiratory failure, unspecified whether with hypoxia or hypercapnia; I48.91 Unspecified atrial fibrillation; Z87.891 Personal history of nicotine dependence; I25.10 Atherosclerotic heart disease of native coronary artery without angina pectoris; I25.5 Ischemic cardiomyopathy; R06.2 Wheezing; R09.82 Postnasal drip; Z95.1 Presence of aortocoronary bypass graft; R06.01 Orthopnea; R06.09 Other forms of dyspnea; Z79.01 Long term (current) use of anticoagulants; Z79.899 Other long term (current) drug therapy; Z95.810 Presence of automatic (implantable) cardiac defibrillator; Z86.16 Personal history of COVID-19; N40.0 Benign prostatic hyperplasia without lower urinary tract symptoms; F32.A Depression, unspecified; H91.93 Unspecified hearing loss, bilateral; Z99.81 Dependence on supplemental oxygen
CPT/HCPCS: 71046; 80048; 83880; 84484; 85025; 93005; 96374; 99284; J1940

== ENCOUNTER 2021-08-24 13:01 | Outpatient (CLI) | payer MEDICARE, OTHER, SELFPAY ==
[2021-08-24 15:42] LABS: Absolute Lymphocyte Count 0.49 X10^3/uL (0.83-4.51); Absolute Neutrophil Count 2.4 X10^3/uL (2.0-7.7); Basophil# 0.02 X10^3/uL; Basophil% 0.6 % (0-1); Eosinophil# 0.15 X10^3/uL; Eosinophils% 4.3 % (0-5); Hematocrit 28.9 % (40-54); Hemoglobin 9.4 g/dL (13.0-16.5); Lymphocyte # 0.49 X10^3/ul (0.83-4.51); Lymphocyte % 14.1 % (19-41); Mean Corp Hgb Conc 32.5 g/dL (32-36); Mean Corpuscular Hgb 33.2 pg (27.0-32.0); Mean Corpuscular Volume 102.1 fL (80-94); Mean Platelet Vol. 11.2 fl (6.2-12.0); Monocyte# 0.44 X10^3/uL; Monocyte% 12.6 % (0-10); NRBC Flagged by Analyzer 0 % (0-5); Neutrophil # 2.35 X10^3/uL (2.7-7.7); Neutrophil % 67.5 % (47-70); POSITIVE DIFFERENTIAL YES; Platelet Count 113 K/mm3 (150-450); RBC Distribution Width SD 62.9 fl (35.1-43.9); Red Blood Count 2.83 M/mm3 (4.6-6.2); White Blood Count 3.5 K/mm3 (4.4-11.0)
[2021-08-24 15:48] LABS: Differential Indicated SCAN CRITERIA MET
[2021-08-24 16:07] LABS: Vitamin D,25 Hydroxy 63.2 ng/mL
[2021-08-24 16:08] LABS: ALB/GLOB Ratio 0.7 RATIO (0.9-2.4); AST(SGOT) 24 U/L (15-37); Alanine Aminotransfer ALT/SGPT 29 U/L (16-61); Albumin, Serum 2.6 g/dL (3.2-5.0); Alkaline Phosphatase 92 U/L (45-117); Anion Gap 4 (5-15); BUN 65 mg/dL (7-18); BUN/Creat Ratio 36.5 RATIO (10-20); Chloride 106 mmol/L (98-107); Creatinine, Serum 1.78 mg/dL (0.70-1.30); EST Glomerular Filtration Rate 39 mL/min (>60); Est Glom Filt Rate - Afr Amer 47 mL/min (>60); Globulin 3.6 g/dL (2.2-4.2); Glucose 130 mg/dL (74-106); Potassium 5.1 mmol/L (3.5-5.1); Protein, Total 6.2 g/dL (6.4-8.2); Sodium Level 139 mmol/L (136-145); Thyroid Stim Hormone (TSH) 0.76 uIU/mL (0.358-3.74)
[2021-08-24 17:07] LABS: Anisocytosis 1+; Platelet Estimate SLT DEC (ADEQ); Red Cell Morphology N CHROM NORMAL (NORM C&C)
[2021-08-25 12:40] LABS: Pathologist Review Reviewed
== END 2021-08-24 23:59 | disposition home or self-care (01) ==
LOC: POLAB3 13:30
PROVIDERS: PCP Family Medicine Geriatric Medicine; Visit Provider Family Medicine Geriatric Medicine
DX: R53.83 Other fatigue (principal); E55.9 Vitamin D deficiency, unspecified
CPT/HCPCS: 36415; 80053; 82306; 84443; 85025

== ENCOUNTER → 2021-09-01 | Outpatient (REF) | payer SELFPAY ==
[2021-09-01 11:47] LABS: Anion Gap 4 (5-15); BUN 54 mg/dL (7-18); BUN/Creat Ratio 28.9 RATIO (10-20); Calcium,Total 8.2 mg/dL (8.5-10.1); Chloride 104 mmol/L (98-107); Creatinine, Serum 1.87 mg/dL (0.70-1.30); EST Glomerular Filtration Rate 37 mL/min (>60); Est Glom Filt Rate - Afr Amer 44 mL/min (>60); Glucose 135 mg/dL (74-106); Potassium 4.1 mmol/L (3.5-5.1); Sodium Level 140 mmol/L (136-145)
== END | disposition home or self-care (01) ==
LOC: OLS.HOSPIC 10:30
PROVIDERS: PCP Family Medicine Geriatric Medicine; Referring Provider Internal Medicine Cardiovascular Disease; Visit Provider Internal Medicine Cardiovascular Disease
DX: I11.0 Hypertensive heart disease with heart failure (principal); I50.22 Chronic systolic (congestive) heart failure
CPT/HCPCS: 80048

== ENCOUNTER → 2021-10-26 | Outpatient (REF) | payer MEDICARE, OTHER, SELFPAY | END | disposition home or self-care (01) | LOC: OLS.HOSPIC 11:37 | PROVIDERS: PCP Family Medicine Geriatric Medicine; Visit Provider Internal Medicine Cardiovascular Disease | DX: Z20.822 Contact with and (suspected) exposure to COVID-19 (principal) | CPT/HCPCS: 87635; U0003; U0005 ==